=== PATIENT | male | born 1940 | race Caucasian/White ===

== ENCOUNTER 2024-06-24 14:50 | Inpatient (IN) | payer MEDICARE, SELFPAY ==
[2024-06-24 15:14] VITALS: BP 122/70; PULSE 63; RESP 16; TEMP 36.3; O2SAT 95; BMI 26.9
--- NOTE | 2024-06-24 16:49 | HP.PCM_ITS ---
HPI - General General Date of Admission: 06/24/24 Date of Service: 06/27/24 Chief Complaint: Here for rehabilitation, wound care. HPI Narrative IZABELA LONDON, is a 84 Male who presents with followin06/20/2024 Admit to [facility] with sore bottom. Sacra pressure ulcer 2/2 antibiotic induced diarrhea, weakness. Diarrhea from Doxycycline, Generalized weakness, unable to walk. Doxycycline was for bronchitis, unable to care for self at home. PT/OT for SNF. IV fluids, delirium precautions. 06/21/2024 Wound nurse recommended Hibiclens, Collagenase, waffle cushion, Reposition frequently for stage 3 bilateral sacral ulcers. 06/21/2024 Feels better after IVF hydration. 06/22/2024 PT/OT recommended SNF. 06/24/2024 Admit to TCU with debility, here for rehabilitation, strengthening, wound care, prior to discharge home with . [facility] Medical History (Updated 06/24/24 @ 17:[address] Keaton Rader MD) Coronary artery disease Hyperlipidemia, unspecified Essential (primary) hypertension Burkitt lymphoma Prostate cancer Dehydration Antibiotic-associated diarrhea Stage III pressure ulcer of sacral region Weakness Debility Home Medications ?Medication ?Instructions ?Recorded ?Last Taken ?Type albuterol sulfate 90 mcg/actuation 2 inh inhalation Q4H PRN Breathing 06/24/24 Unknown History aerosol inhaler ascorbic acid (vitamin C) 500 mg 500 mg PO DAILY Supplement 06/24/24 06/24/24 09:30 History capsule aspirin 81 mg capsule 81 mg PO DAILY Heart 06/24/24 06/23/24 22:15 History benzonatate 100 mg capsule 100 mg PO TID PRN PRN cough 06/24/24 Unknown History calcium carbonate 500 mg-vitamin 1 tab PO DAILY supplement 06/24/24 06/24/24 09:30 History D3 5 mcg (200 unit) tablet (Oyster Shell Calcium-Vitamin D3) carvedilol 3.125 mg tablet 3.125 mg PO BID BP 06/24/24 06/24/24 09:30 History cholecalciferol (vitamin D3) 125 125 mcg PO DAILY SUPPLEMENT 06/24/24 Unknown History mcg (5,000 unit) capsule collagenase clostridium histo. 250 1 applic topical DAILY wound 06/24/24 06/24/24 09:30 History unit/gram topical ointment enzalutamide 40 mg capsule (Xtandi) 160 mg PO QHS Cancer 06/24/24 06/23/24 22:15 History lisinopril 10 mg tablet 10 mg PO DAILY BP 06/24/24 06/24/24 09:30 History polyethylene glycol 3350 17 17 g PO DAILY PRN constipation 06/24/24 06/20/24 History gram/dose oral powder (Miralax) simvastatin 20 mg tablet 20 mg PO QPM Cholesterol 06/24/24 Unknown History tamsulosin 0.4 mg capsule 0.4 mg PO BID PRN BPH 06/24/24 06/24/24 09:30 History zinc sulfate 50 mg zinc (220 mg) 50 mg PO DAILY Supplement 06/24/24 06/24/24 09:35 History capsule (Orazinc) Allergy/AdvReac Type Severity Reaction Status Date / Time No Known Allergies Allergy Verified 06/24/24 16:10 Family History (Updated 06/24/24 @ 17:[address] Keaton Rader MD) Father , at 77. Colon cancer Surgical History (Updated 06/24/24 @ 17:[address] Keaton Rader MD) History of total left knee replacement History of tonsillectomy and adenoidectomy History of arteriovenous graft History of cataract surgery History of coronary artery stent placement History of colonoscopy History of bone graft History of back surgery Social History (Updated 06/24/24 @ 17:[address] Keaton Rader MD) household members: spouse Smoking Status: Former smoker alcohol intake: current details: Glass of wine per week. substance use type: does not use ROS Constitutional Constitutional: Reports weakness; Denies chills, fever(s) or weight gain ENT HEENT: Denies headache(s), nasal congestion or nasal discharge Cardiovascular Cardiovascular: Denies chest pain or palpitations Respiratory/Chest Respiratory/Chest: Denies cough, excessive phlegm production or shortness of breath with exertion Gastrointestinal Gastrointestinal: Denies abdominal pain, nausea or vomiting Genitourinary Genitourinary: Denies dysuria Musculoskeletal Musculoskeletal: Denies joint pain or joint swelling Integumentary Integumentary: Denies rash or wounds Neurologic Neurologic: Denies focal weakness, numbness or tingling Psychiatric Psychiatric: Denies anxiety, auditory hallucinations, depression, homicidal ideation or suicidal ideation Vital Signs Vital Signs Vital Signs: 06/24/24 15:14 06/24/24 15:14 Temperature 97.3 F L Temperature Source Temporal Pulse Rate 63 Pulse Rhythm Regular Pulse Strength Normal (2+) Respiratory Rate 16 Respiratory Effort Normal Non-Labored Respiratory Depth Normal Respiratory Pattern Normal Blood Pressure 122/70 H Blood Pressure Mean 87 Blood Pressure Source Monitor Blood Pressure Position Semi-Fowlers Blood Pressure Location Left Arm Pulse Ox 95 Oxygen Delivery Method Room Air Room Air Weight Weight: 87.77 kg Body Mass Index (BMI) 26.9 Physical Exam Const alert General Appearance: cooperative HEENT normocephalic Eyes PERRL and EOMs intact bilaterally Neck supple, no JVD and no carotid bruits Resp normal respiratory effort, normal air movement and clear to auscultation bilaterally Cardio regular rate and regular rhythm GI normal to inspection, nondistended, normoactive bowel sounds, non-tender and non-distended Extremity normal capillary refill General Extremity: Negative for edema Skin Skin Narrative: Sacral pressure ulcers per wound nurse. Psych affect normal Appearance: appropriate Results Lab / Micro Data 06/25/24 05:25 06/25/24 05:25 Assessment & Plan Assessment/Plan (1) Debility: (2) Weakness: (3) Stage III pressure ulcer of sacral region: (4) Antibiotic-associated diarrhea: (5) Dehydration: (6) Prostate cancer: (7) Burkitt lymphoma: (8) Essential (primary) hypertension: (9) Hyperlipidemia, unspecified: (10) Coronary artery disease: PLAN: Plan 84 year old male with below past medical history hospitalized for weakness 2/2 antibiotic related diarrhea, dehydration, stage 3 bilateral sacral ulcers, admitted to TCU with debility, here for rehabilitation, strengthening, wound care, prior to discharge home with . * Debility - PT/OT. * Pain - Tylenol 1000mg q6 prn pain (1-10). * Bowel - Miralax 17gm daily prn. * Adult immunization - Administer pneumonia vaccine, covid vaccine, flu vaccine as appropriate. * DVT prophylaxis - Lovenox 40mg sc daily. * Shortness of breath - Albuterol 2 puffs q4 prn. * Vitamin C deficiency - Vitamin C 500mg daily. * Coronary artery disease - Coreg 3.125mg bid, Lisinopril 10mg daily, Aspirin 81mg daily. * Hyperlipidemia - Atorvastatin 10mg qhs. * Cough - Tessalon Perles 100mg tid prn. * Calcium deficiency - Calcium D 1 tablet daily. * Vitamin D deficiency - D 125mcg daily. * Stage 3 sacral pressure ulcer - Collagenase topical daily, consult wound nurse. * Nutrition - Ensure Plus 120ml tidcm. * Prostate cancer - Xtandi 160mg qhs. * BPH - Tamsulosin 0.4mg bid prn. * Zinc deficiency - Zinc 50mg daily.
[2024-06-24] MEDS: Ensure Plus High Protein 120 ML LIQUID PO (17:24)
[2024-06-24 21:10] VITALS: BP 125/60; PULSE 65
[2024-06-24] MEDS: Atorvastatin Calcium 10 MG Tablet PO (21:12)
[2024-06-24] MEDS: ENZALUTAMIDE 40 MG CAPSULE 160 MG PO (21:12)
[2024-06-24] MEDS: Carvedilol 3.125 MG TABLET PO (21:13)
[2024-06-25] MEDS: Enoxaparin 40 MG/0.4 ML Syringe SC (05:32)
[2024-06-25 05:33] LABS: Absolute Neutrophil Count 4.3 X10^3/uL (2.0-7.7); Basophil# 0.05 X10^3/uL; Basophil% 0.6 % (0-1); Eosinophil# 0.27 X10^3/uL; Eosinophils% 3.5 % (0-5); Hematocrit 40.9 % (40-54); Hemoglobin 13.3 g/dL (13.0-16.5); Lymphocyte % 29.6 % (19-41); Mean Corp Hgb Conc 32.5 g/dL (32-36); Mean Corpuscular Hgb 31.5 pg (27.0-32.0); Mean Corpuscular Volume 96.9 fL (80-94); Mean Platelet Vol. 9.4 fl (6.2-12.0); Monocyte# 0.86 X10^3/uL; Monocyte% 11.1 % (0-10); NRBC Flagged by Analyzer 0 % (0-5); Neutrophil # 4.25 X10^3/uL (2.7-7.7); Neutrophil % 54.7 % (47-70); Platelet Count 239 K/mm3 (150-450); RBC Distribution Width CV 13.8 % (11.6-14.6); RBC Distribution Width SD 49.2 fl (35.1-43.9); Red Blood Count 4.22 M/mm3 (4.6-6.2); White Blood Count 7.8 K/mm3 (4.4-11.0)
[2024-06-25 05:57] LABS: Anion Gap 7 (5-15); BUN 17 mg/dL (7-18); BUN/Creat Ratio 33.5 RATIO (10-20); Calcium,Total 8.8 mg/dL (8.5-10.1); Chloride 103 mmol/L (98-107); Creatinine, Serum 0.51 mg/dL (0.70-1.30); EST Glomerular Filtration Rate 165 mL/min (>60); Est Glom Filt Rate - Afr Amer 200 mL/min (>60); Estimated Creatinine Clearance 73.21 ml/min; Glucose 113 mg/dL (74-106); Potassium 4.4 mmol/L (3.5-5.1); Sodium Level 139 mmol/L (136-145)
[2024-06-25] MEDS: Zinc Sulfate 50 mg zinc (220 mg) ORAL capsule PO (08:51)
[2024-06-25] MEDS: Lisinopril 10 MG Tablet PO (08:51)
[2024-06-25] MEDS: Aspirin 81 MG TAB.CHEW PO (08:52)
[2024-06-25] MEDS: Ascorbic Acid 500 MG Tablet PO (08:52)
[2024-06-25] MEDS: Carvedilol 3.125 MG TABLET PO ×2 (08:52→21:44)
[2024-06-25] MEDS: Calcium Carb/Vitamin D 1 TABLET Tablet PO (08:52)
[2024-06-25] MEDS: Cholecalciferol (Vit D3) 125 MCG CAPSULE (5,000 UNITS) PO (08:52)
[2024-06-25] MEDS: Ensure Plus High Protein 120 ML LIQUID PO ×3 (08:57→16:37)
[2024-06-25] MEDS: Collagenase 30gm Tube 1 APPLIC TOPICAL (10:11)
[2024-06-25] MEDS: Tuberculin,Purif.prot.deriv. 50 TU/ML Vial 0.1 ML ID (10:13)
[2024-06-25 12:29] VITALS: BP 114/64; PULSE 65; RESP 14; TEMP 36; O2SAT 94
--- NOTE | 2024-06-25 21:14 | NURSING ---
Spoke w/ DR. Rader via phone to report resident is requesting to have Flomax changed to 0.4 mg po BID scheduled. New order received and read back for Flomax 0.4 mg po BID scheduled.
[2024-06-25 21:41] VITALS: BP 124/70; PULSE 63
[2024-06-25] MEDS: Atorvastatin Calcium 10 MG Tablet PO (21:44)
[2024-06-25] MEDS: ENZALUTAMIDE 40 MG CAPSULE 160 MG PO (21:44)
[2024-06-25] MEDS: Tamsulosin HCl 0.4 MG Capsule PO (21:44)
[2024-06-26] MEDS: Enoxaparin 40 MG/0.4 ML Syringe SC (05:22)
[2024-06-26] MEDS: Cholecalciferol (Vit D3) 125 MCG CAPSULE (5,000 UNITS) PO (08:49)
[2024-06-26] MEDS: Tamsulosin HCl 0.4 MG Capsule PO ×2 (08:49→21:53)
[2024-06-26] MEDS: Ascorbic Acid 500 MG Tablet PO (08:49)
[2024-06-26] MEDS: Carvedilol 3.125 MG TABLET PO ×2 (08:49→21:53)
[2024-06-26] MEDS: Calcium Carb/Vitamin D 1 TABLET Tablet PO (08:49)
[2024-06-26] MEDS: Ensure Plus High Protein 120 ML LIQUID PO ×3 (08:49→18:10)
[2024-06-26] MEDS: Aspirin 81 MG TAB.CHEW PO (08:49)
[2024-06-26] MEDS: Lisinopril 10 MG Tablet PO (08:49)
[2024-06-26] MEDS: Zinc Sulfate 50 mg zinc (220 mg) ORAL capsule PO (08:49)
[2024-06-26 08:52] VITALS: BP 114/65; PULSE 68
[2024-06-26 08:58] VITALS: BP 114/65; PULSE 68
[2024-06-26] MEDS: Polyethylene Glycol 3350 17 GM PACKET PO (10:22)
[2024-06-26] MEDS: Collagenase 30gm Tube 1 APPLIC TOPICAL (10:28)
[2024-06-26 15:11] VITALS: BP 102/56; PULSE 69; RESP 16; TEMP 36.3; O2SAT 94
[2024-06-26 21:50] VITALS: BP 100/54
[2024-06-26] MEDS: Atorvastatin Calcium 10 MG Tablet PO (21:53)
[2024-06-26] MEDS: ENZALUTAMIDE 40 MG CAPSULE 160 MG PO (21:54)
[2024-06-26 22:15] VITALS: PULSE 70; RESP 14; O2SAT 93
--- NOTE | 2024-06-27 04:39 | NURSING ---
Pt had large bm and soiled dressing on buttocks. Old dressing removed. Washed area with ns. Applied santyl,mepilex. Pt tolerated well.
[2024-06-27] MEDS: Enoxaparin 40 MG/0.4 ML Syringe SC (06:24)
[2024-06-27] MEDS: Ascorbic Acid 500 MG Tablet PO (07:39)
[2024-06-27] MEDS: Cholecalciferol (Vit D3) 125 MCG CAPSULE (5,000 UNITS) PO (07:39)
[2024-06-27] MEDS: Aspirin 81 MG TAB.CHEW PO (07:39)
[2024-06-27] MEDS: Lisinopril 10 MG Tablet PO (07:39)
[2024-06-27] MEDS: Tamsulosin HCl 0.4 MG Capsule PO (07:39)
[2024-06-27] MEDS: Carvedilol 3.125 MG TABLET PO ×2 (07:39→22:09)
[2024-06-27] MEDS: Ensure Plus High Protein 120 ML LIQUID PO ×3 (07:39→17:09)
[2024-06-27] MEDS: Collagenase 30gm Tube 1 APPLIC TOPICAL (07:39)
[2024-06-27] MEDS: Zinc Sulfate 50 mg zinc (220 mg) ORAL capsule PO (07:39)
[2024-06-27] MEDS: Calcium Carb/Vitamin D 1 TABLET Tablet PO (07:39)
[2024-06-27 09:19] VITALS: BP 119/64; PULSE 67; RESP 16; TEMP 36.3; O2SAT 96
[2024-06-27 10:11] VITALS: BMI 27.0
--- NOTE | 2024-06-27 13:32 | PHA.CONS_ITS ---
Documented by User: Haider Garvey 06/27/24 13:52 TCU RX Drug Regimen Review Subjective/Objective Subjective/Objective: Subjective: TCU admission note. 84 year old male hospitalized for weakness 2/2 antibiotic related diarrhea, dehydration, stage 3 bilateral sacral ulcers, admitted to TCU with debility, here for rehabilitation, strengthening, wound care, prior to discharge home with . Objective: Allergies No Known Allergies Allergy (Verified 06/24/24 16:10) Current Medications Generic Name Dose Route Start Last Admin Trade Name Freq PRN Reason Stop Dose Admin Acetaminophen 1,000 mg 06/24/24 17:46 Acetaminophen 500 Mg Tablet PO Q6H PRN PRN Pain Score 1-10 Albuterol Sulfate 2 puff 06/24/24 15:33 Albuterol Ih (6.7 Gm) 1 Puff Inhaler INHALATION Q4H PRN Wheezing or SOB Ascorbic Acid 500 mg 06/25/24 10:00 06/27/24 07:39 Ascorbic Acid 500 Mg Tablet PO 500 mg DAILY MARCIAL Administration Aspirin 81 mg 06/25/24 08:00 06/27/24 07:39 Aspirin 81 Mg Tab.Chew PO 81 mg DAILYCM MARCIAL Administration Atorvastatin Calcium 10 mg 06/24/24 22:00 06/26/24 21:53 Atorvastatin Calcium 10 Mg Tablet PO 10 mg QHS MARCIAL Administration Benzonatate 100 mg 06/24/24 15:33 Benzonatate 100 Mg Capsule PO TID PRN PRN cough Calcium/Vitamin D 1 tablet 06/25/24 08:00 06/27/24 07:39 Calcium Carb/Vitamin D 1 Tablet Tablet PO 1 tablet DAILYCM MARCIAL Administration Carvedilol 3.125 mg 06/24/24 22:00 06/27/24 07:39 Carvedilol 3.125 Mg Tablet PO 3.125 mg BID MARCIAL Administration Protocol Cholecalciferol 125 mcg 06/25/24 10:00 06/27/24 07:39 Cholecalciferol (Vit D3) 125 Mcg Capsule (5,000 Units) PO 125 mcg DAILY MARCIAL Administration Collagenase 1 applic 06/25/24 10:00 06/27/24 07:39 Collagenase 30gm Tube TOPICAL 1 applic DAILY MARCIAL Administration Protocol Enoxaparin Sodium 40 mg 06/25/24 06:00 06/27/24 06:24 Enoxaparin 40 Mg/0.4 Ml Syringe SC 40 mg DAILY@0600 MARCIAL Administration Lisinopril 10 mg 06/25/24 10:00 06/27/24 07:39 Lisinopril 10 Mg Tablet PO 10 mg DAILY MARCIAL Administration Protocol Nutritional Formula (Lactose Free) 120 ml 06/24/24 17:45 06/27/24 11:50 Ensure Plus High Protein 120 Ml Liquid PO 120 ml TIDCM MARCIAL Administration Polyethylene Glycol 17 gm 06/24/24 16:13 06/26/24 10:22 Polyethylene Glycol 3350 17 Gm Packet PO 17 gm DAILY PRN Administration constipation Sodium Chloride 10 - 40 ml 06/24/24 15:18 0.9% Saline Lock 10 Ml Syringe IV UD PRN SALINE FLUSH Tamsulosin HCl 0.4 mg 06/25/24 22:00 06/27/24 07:39 Tamsulosin Hcl 0.4 Mg Capsule PO 0.4 mg BID MARCIAL Administration Tuberculin PPD 0.1 ml 07/02/24 10:00 Tuberculin,Purif.Prot.Deriv. 50 Tu/Ml Vial ID 07/02/24 10:01 X1 ONE Zinc Sulfate 50 mg 06/25/24 10:00 06/27/24 07:39 Zinc Sulfate 50 Mg Zinc (220 Mg) Oral Capsule PO 50 mg DAILY MARCIAL Administration Problem List Coronary artery disease (Acute) Hyperlipidemia, unspecified (Acute) Essential (primary) hypertension (Acute) Burkitt lymphoma (Acute) Prostate cancer (Acute) Dehydration (Acute) Antibiotic-associated diarrhea (Acute) Stage III pressure ulcer of sacral region (Acute) Weakness (Acute) Debility (Acute) Vital Signs Temp Pulse Resp BP Pulse Ox O2 Del Method 97.3 F L 67 16 119/64 96 Room Air 06/27/24 09:19 06/27/24 09:19 06/27/24 09:19 06/27/24 09:19 06/27/24 09:19 06/27/24 10:00 Oxygen Delivery Method Room Air Weight: 87.861 kg Body Mass Index (BMI) 27.0 Sodium 139 mmol/L (136-145) 06/25/24 05:25 Potassium 4.4 mmol/L (3.5-5.1) 06/25/24 05:25 Chloride 103 mmol/L (98-107) 06/25/24 05:25 Carbon Dioxide 29.0 mmol/L (21.0-32.0) 06/25/24 05:25 Anion Gap 7 (5-15) 06/25/24 05:25 BUN 17 mg/dL (7-18) 06/25/24 05:25 Creatinine 0.51 mg/dL (0.70-1.30) L 06/25/24 05:25 Est GFR (MDRD) Af Amer 200 mL/min (>60) 06/25/24 05:25 Est GFR (MDRD) Non-Af 165 mL/min (>60) 06/25/24 05:25 BUN/Creatinine Ratio 33.5 RATIO (10-20) H 06/25/24 05:25 Glucose 113 mg/dL (74-106) H 06/25/24 05:25 Assessment/Plan: 1. Pain: acetaminophen 1000 mg PO Q6H PRN pain. The patient has not required any PRN doses of acetaminophen so far this admission. Please continue to monitor for pain, PRN medication administration, and LFTs (no recent LFTs documented). 2. Bowel: polyethylene glycol 17 grams PO daily PRN constipation. The patient has received 1 dose of PRN polyethylene glycol so far this admission and the patient's last bowel movement was 06/27/24. Please continue to monitor for bowel movements, PRN medication administration, constipation and diarrhea. 3. DVT prophylaxis: enoxaparin 40 mg SC daily. Please continue to monitor for s/s of a DVT such as pain/erythema/edema in an extremity, for bleeding/excessive bruising, renal function (serum creatinine = 0.51 mg/dL with creatinine clearance ~ 73 mL/min on 06/25/24), hemoglobin levels (Hgb = 13.3 g/dL on 06/25/24), and platelet count (Plt = 239 K/mm3 on 06/25/24). 4. Coronary artery disease/hyperlipidemia: carvedilol 3.125 mg PO BID, lisinopril 10 mg PO daily, aspirin 81 mg PO daily, atorvastatin 10 mg PO QHS. Please continue to monitor for chest/arm/jaw pain, blood pressures (recent range = 100-125/54-70 mmHg), heart rates (recent range = 63-70 beats/min), for fatigue, renal function (serum creatinine = 0.51 mg/dL with creatinine clearance ~ 73 mL/min on 06/25/24), potassium levels (K = 4.4 mmol/L on 06/25/24), sodium levels (Na = 139 mmol/L on 06/25/24), for angioedema and dry cough, for bleeding/excessive bruising, for GI distress with aspirin administration, LFTs (no recent LFTs documented), myalgias, and lipid levels (no recent lipid levels documented). The patient has a history of CAD and therefore should be on a high intensity statin. Please consider ordering lipid levels to assess whether the patient can tolerate an increase in their statin dose. 5. Prostate cancer: enzalutamide 160 mg PO QHS. Please continue to monitor for hypotension, edema, hyperglycemia (recent BG = 113 mg/dL on 06/25/24), hemoglobin levels (Hgb = 13.3 g/dL on 06/25/24), WBC count (WBC = 7.8 K/mm3 on 06/25/24), arthralgia, bone fractures and dyspnea. 6. BPH: tamsulosin 0.4 mg PO BID. Please continue to monitor for urinary re tention and urine stream as well as for s/s of orthostasis. If the patient exhibits s/s of orthostasis throughout the day with good urine flow, consider changing to tamsulosin 0.8 mg QHS instead of 0.4 mg PO BID. 7. Shortness of breath: albuterol 2 puffs Q4H PRN shortness of breath. The patient has not required any PRN doses of albuterol so far this admission. Please continue to monitor for shortness of breath and for PRN medication administrations. 8. Cough: benzonatate 100 mg PO TID PRN cough. The patient has not required any PRN doses of benzonatate so far this admission. Please continue to monitor for cough, for PRN medication administration, chest numbness and constipation. 9. Stage 3 sacral pressure ulcer: collagenase 1 application topically daily. Please continue to monitor for resolution of pressure ulcer. 10. Calcium deficiency: calcium/vitamin D 1 tablet PO daily. Please continue to monitor for s/s of calcium deficiency as well as calcium levels (Ca = 8.8 mg/dL on 06/25/24). 11. Vitamin C deficiency: ascorbic acid 500 mg PO daily. Please continue to monitor for s/s of vitamin C deficiency. 12. Vitamin D deficiency: cholecalciferol 125 mcg PO daily. Please continue to monitor for s/s of vitamin D deficiency as well as vitamin D levels (no recent vitamin D levels). Please consider ordering a vitamin D level to assess repletion status if clinically indicated. 13. Zinc deficiency: zinc sulfate 50 mg PO daily. Please continue to monitor for s/s of zinc deficiency. 14. Nutrition: ensure plus 120 mL PO TID with meals. Please continue to monitor overall nutritional status. Assessment/Plan for indications treated with psychotropic medications: NA Medical chart and medication regimen reviewed. The following medication irreg ularities or issues were identified: 1. Coronary artery disease/hyperlipidemia: carvedilol 3.125 mg PO BID, lisinopril 10 mg PO daily, aspirin 81 mg PO daily, atorvastatin 10 mg PO QHS. T he patient has a history of CAD and therefore should be on a high intensity statin. Please consider ordering lipid levels to assess whether the patient can tolerate an increase in their statin dose. 2. BPH: tamsulosin 0.4 mg PO BID. If the patient exhibits s/s of orthostasis throughout the day with good urine flow, consider changing to tamsulosin 0.8 mg QHS instead of 0.4 mg PO BID. 3. Vitamin D deficiency: cholecalciferol 125 mcg PO daily. Please consider ordering a vitamin D level to assess repletion status if clinically indicated. Date Date of Note:: 06/27/24 Documented by User: Dr. Keaton Rader MD 06/27/24 14:35 TCU RX Drug Regimen Review Provider Comments Provider responsibility Provider Comments to Recommendations by Pharmacy: Agree
--- NOTE | 2024-06-27 15:39 | WOUNDNOTE ---
wound photo: bilateral buttocks
[2024-06-27 22:05] VITALS: BP 123/59; PULSE 63
[2024-06-27] MEDS: ENZALUTAMIDE 40 MG CAPSULE 160 MG PO (22:08)
[2024-06-27] MEDS: Atorvastatin Calcium 10 MG Tablet PO (22:09)
[2024-06-27] MEDS: Tamsulosin HCl 0.4 MG Capsule 0.8 MG PO (22:09)
[2024-06-28] MEDS: Enoxaparin 40 MG/0.4 ML Syringe SC (05:49)
[2024-06-28 07:02] LABS: Cholesterol 125 mg/dL (200); High Density Lipoprotein 45 mg/dL; Triglycerides 94 mg/dL; Very Low Density Lipoprotein 19 mg/dL (5-40)
[2024-06-28 07:47] LABS: Vitamin D,25 Hydroxy 38.4 ng/mL
[2024-06-28] MEDS: Carvedilol 3.125 MG TABLET PO ×2 (08:27→20:28)
[2024-06-28] MEDS: Aspirin 81 MG TAB.CHEW PO (08:27)
[2024-06-28] MEDS: Calcium Carb/Vitamin D 1 TABLET Tablet PO (08:27)
[2024-06-28] MEDS: Cholecalciferol (Vit D3) 125 MCG CAPSULE (5,000 UNITS) PO (08:28)
[2024-06-28] MEDS: Lisinopril 10 MG Tablet PO (08:28)
[2024-06-28] MEDS: Ascorbic Acid 500 MG Tablet PO (08:28)
[2024-06-28] MEDS: Zinc Sulfate 50 mg zinc (220 mg) ORAL capsule PO (08:28)
[2024-06-28] MEDS: Ensure Plus High Protein 120 ML LIQUID PO ×3 (08:31→17:32)
--- NOTE | 2024-06-28 13:59 | CASEMGMT ---
Social Work IDT met with patient, and dtr for care plan meeting. Discussed patient's progress in PT/OT/SN. Educated to [facility] insurance with NRD 07/03 and continued stay is not guaranteed with each review. Pt's goal is to return home with , but cannot assist. Pt did just order a hospital bed for home. SW inquired about other services needed at DC. Pt denied. After POC meeting, SW completed initial assessment. Verified/updated contacts. Confirmed code status as full code. SW will continue to follow for DC planning. Halle Nazario, HYDROPONICS WORKER INTEGRATION AIDE
[2024-06-28 16:00] VITALS: BP 134/68; PULSE 78; RESP 14; TEMP 36.4; O2SAT 95
--- NOTE | 2024-06-28 16:02 | CASEMGMT ---
Social Work SW requested provide copies of advanced directives. SW also provide resources for medical alert information. Halle Nazario, DAIRY MANAGEMENT SPECIALIST REGIONAL SALES MANAGER
[2024-06-28 20:27] VITALS: BP 114/53; PULSE 67
[2024-06-28] MEDS: Atorvastatin Calcium 10 MG Tablet PO (20:29)
[2024-06-28] MEDS: Tamsulosin HCl 0.4 MG Capsule 0.8 MG PO (20:29)
[2024-06-28] MEDS: ENZALUTAMIDE 40 MG CAPSULE 160 MG PO (20:30)
[2024-06-29] MEDS: Enoxaparin 40 MG/0.4 ML Syringe SC (06:10)
[2024-06-29 06:47] VITALS: PULSE 76; RESP 16; O2SAT 93
[2024-06-29] MEDS: Aspirin 81 MG TAB.CHEW PO (07:43)
[2024-06-29] MEDS: Ensure Plus High Protein 120 ML LIQUID PO ×3 (07:43→17:38)
[2024-06-29] MEDS: Carvedilol 3.125 MG TABLET PO ×2 (07:44→20:52)
[2024-06-29] MEDS: Lisinopril 10 MG Tablet PO (07:44)
[2024-06-29] MEDS: Calcium Carb/Vitamin D 1 TABLET Tablet PO (07:44)
[2024-06-29] MEDS: Ascorbic Acid 500 MG Tablet PO (07:45)
[2024-06-29] MEDS: Cholecalciferol (Vit D3) 125 MCG CAPSULE (5,000 UNITS) PO (07:45)
[2024-06-29] MEDS: Zinc Sulfate 50 mg zinc (220 mg) ORAL capsule PO (07:45)
[2024-06-29 07:50] VITALS: BP 102/55; PULSE 66; RESP 16; TEMP 36.8; O2SAT 93
--- NOTE | 2024-06-29 09:57 | NURSING ---
Regulatory Compliance Manager Note; Activity Asset: Lisa Ward is independent in his choice of daily activities. He prefers in room activities and visits w/family and friends over group. He has a smartphone and tablet her will use for talking, reading watching movies or playing games on. Staff will remind him of weekly activities and respect his right to say no.
[2024-06-29 20:50] VITALS: BP 113/58; PULSE 72
[2024-06-29] MEDS: ENZALUTAMIDE 40 MG CAPSULE 160 MG PO (20:51)
[2024-06-29] MEDS: Atorvastatin Calcium 10 MG Tablet PO (20:52)
[2024-06-29] MEDS: Tamsulosin HCl 0.4 MG Capsule 0.8 MG PO (20:52)
[2024-06-30] MEDS: Enoxaparin 40 MG/0.4 ML Syringe SC (05:26)
[2024-06-30 07:05] VITALS: PULSE 64; RESP 16; O2SAT 94
[2024-06-30] MEDS: Lisinopril 10 MG Tablet PO (10:00)
[2024-06-30] MEDS: Aspirin 81 MG TAB.CHEW PO (10:00)
[2024-06-30] MEDS: Zinc Sulfate 50 mg zinc (220 mg) ORAL capsule PO (10:00)
[2024-06-30] MEDS: Carvedilol 3.125 MG TABLET PO ×2 (10:00→20:51)
[2024-06-30] MEDS: Ascorbic Acid 500 MG Tablet PO (10:00)
[2024-06-30] MEDS: Cholecalciferol (Vit D3) 125 MCG CAPSULE (5,000 UNITS) PO (10:00)
[2024-06-30] MEDS: Calcium Carb/Vitamin D 1 TABLET Tablet PO (10:00)
[2024-06-30] MEDS: Ensure Plus High Protein 120 ML LIQUID PO ×3 (10:04→16:42)
--- NOTE | 2024-06-30 11:15 | MDS.RN ---
Pain interview for mds completed.
--- NOTE | 2024-06-30 13:43 | WOUNDNOTE ---
wound photo: bilateral buttocks
--- NOTE | 2024-06-30 15:25 | CHAPLAIN ---
Type of Pastoral Visit _x__ Initial Visit ___ Follow-up Visit ___ On-call Visit ___ General Patient Visit ___ Spiritual Assessment ___ Family Conference ___ Bereavement ___ Rapid Response ___ Code Blue ___ Other (describe below) Pastoral Care Referral From _x__ Patient ___ Family ___ Nurse ___ Physician ___ Manager Of Business ___ Greeting Card Editor ___ Other (describe below) Sacrament/Intervention _x__ Active listening ___ Anointing ___ Jain ___ Bereavement ___ Communion _x__ Mariana exploration ___ _x__ Life review _x__ Prayer ___ Reconciliation ___ Sacrament of Sick ___ Supportive presence ___ Wedding ___ Other (describe below) Pastoral Comments patient is welcoming and describes his situation and then talks about his cheondoism experience and concerns for that; pt engages well in casual conversation, accepts presence and prayer, and welcomes future visits as possible
[2024-06-30 15:27] VITALS: BP 116/58; PULSE 68; RESP 18; TEMP 36.5; O2SAT 95
--- NOTE | 2024-06-30 15:34 | CASEMGMT ---
Social Work SW conducted BIMS () and PHQ-2 () completed for MDS assessment. Halle Nazario MSW BRASS WIND INSTRUMENT MAKER
[2024-06-30 20:49] VITALS: BP 118/60; PULSE 76
[2024-06-30] MEDS: Tamsulosin HCl 0.4 MG Capsule 0.8 MG PO (20:50)
[2024-06-30] MEDS: ENZALUTAMIDE 40 MG CAPSULE 160 MG PO (20:50)
[2024-06-30] MEDS: Atorvastatin Calcium 10 MG Tablet PO (20:51)
[2024-07-01] MEDS: Enoxaparin 40 MG/0.4 ML Syringe SC (05:44)
[2024-07-01 09:45] VITALS: BP 125/63; PULSE 64; RESP 16; TEMP 36.3; O2SAT 95
[2024-07-01] MEDS: Cholecalciferol (Vit D3) 125 MCG CAPSULE (5,000 UNITS) PO (09:47)
[2024-07-01] MEDS: Ensure Plus High Protein 120 ML LIQUID PO ×3 (09:47→17:26)
[2024-07-01] MEDS: Carvedilol 3.125 MG TABLET PO ×2 (09:47→21:25)
[2024-07-01] MEDS: Ascorbic Acid 500 MG Tablet PO (09:47)
[2024-07-01] MEDS: Aspirin 81 MG TAB.CHEW PO (09:47)
[2024-07-01] MEDS: Calcium Carb/Vitamin D 1 TABLET Tablet PO (09:47)
[2024-07-01] MEDS: Zinc Sulfate 50 mg zinc (220 mg) ORAL capsule PO (09:47)
[2024-07-01] MEDS: Lisinopril 10 MG Tablet PO (09:47)
[2024-07-01 18:05] VITALS: RESP 16
[2024-07-01 21:23] VITALS: BP 113/55; PULSE 66
[2024-07-01] MEDS: Tamsulosin HCl 0.4 MG Capsule 0.8 MG PO (21:24)
[2024-07-01] MEDS: ENZALUTAMIDE 40 MG CAPSULE 160 MG PO (21:24)
[2024-07-01] MEDS: Atorvastatin Calcium 10 MG Tablet PO (21:25)
[2024-07-02] MEDS: Enoxaparin 40 MG/0.4 ML Syringe SC (06:29)
[2024-07-02 07:03] VITALS: PULSE 62; RESP 16; O2SAT 93
[2024-07-02 07:53] VITALS: BP 102/59; PULSE 62; RESP 16; TEMP 36.3; O2SAT 93
[2024-07-02] MEDS: Ensure Plus High Protein 120 ML LIQUID PO ×3 (07:55→16:48)
[2024-07-02] MEDS: Calcium Carb/Vitamin D 1 TABLET Tablet PO (07:56)
[2024-07-02] MEDS: Ascorbic Acid 500 MG Tablet PO (07:56)
[2024-07-02] MEDS: Lisinopril 10 MG Tablet PO (07:56)
[2024-07-02] MEDS: Zinc Sulfate 50 mg zinc (220 mg) ORAL capsule PO (07:56)
[2024-07-02] MEDS: Aspirin 81 MG TAB.CHEW PO (07:56)
[2024-07-02] MEDS: Carvedilol 3.125 MG TABLET PO ×2 (07:56→21:55)
[2024-07-02] MEDS: Cholecalciferol (Vit D3) 125 MCG CAPSULE (5,000 UNITS) PO (07:56)
[2024-07-02] MEDS: Tuberculin,Purif.prot.deriv. 50 TU/ML Vial 0.1 ML ID (10:49)
[2024-07-02] MEDS: ENZALUTAMIDE 40 MG CAPSULE 160 MG PO (21:54)
[2024-07-02] MEDS: Tamsulosin HCl 0.4 MG Capsule 0.8 MG PO (21:55)
[2024-07-02] MEDS: Atorvastatin Calcium 10 MG Tablet PO (21:55)
[2024-07-03 05:57] LABS: Absolute Lymphocyte Count 2.25 X10^3/uL (0.83-4.51); Absolute Neutrophil Count 5.1 X10^3/uL (2.0-7.7); Basophil# 0.06 X10^3/uL; Basophil% 0.7 % (0-1); Eosinophil# 0.15 X10^3/uL; Eosinophils% 1.8 % (0-5); Hematocrit 41.3 % (40-54); Hemoglobin 13.5 g/dL (13.0-16.5); Lymphocyte # 2.25 X10^3/ul (0.83-4.51); Lymphocyte % 26.6 % (19-41); Mean Corp Hgb Conc 32.7 g/dL (32-36); Mean Corpuscular Hgb 31.8 pg (27.0-32.0); Mean Corpuscular Volume 97.2 fL (80-94); Mean Platelet Vol. 9.5 fl (6.2-12.0); Monocyte# 0.81 X10^3/uL; Monocyte% 9.6 % (0-10); NRBC Flagged by Analyzer 0 % (0-5); Neutrophil # 5.14 X10^3/uL (2.7-7.7); Neutrophil % 60.8 % (47-70); Platelet Count 269 K/mm3 (150-450); RBC Distribution Width CV 13.6 % (11.6-14.6); RBC Distribution Width SD 48.8 fl (35.1-43.9); Red Blood Count 4.25 M/mm3 (4.6-6.2); White Blood Count 8.5 K/mm3 (4.4-11.0)
[2024-07-03] MEDS: Enoxaparin 40 MG/0.4 ML Syringe SC (06:15)
[2024-07-03 07:00] LABS: Anion Gap 5 (5-15); BUN 29 mg/dL (7-18); BUN/Creat Ratio 52.1 RATIO (10-20); Calcium,Total 9.1 mg/dL (8.5-10.1); Chloride 101 mmol/L (98-107); Creatinine, Serum 0.56 mg/dL (0.70-1.30); EST Glomerular Filtration Rate 149 mL/min (>60); Est Glom Filt Rate - Afr Amer 180 mL/min (>60); Estimated Creatinine Clearance 73.21 ml/min; Glucose 119 mg/dL (74-106); Potassium 4.6 mmol/L (3.5-5.1); Sodium Level 134 mmol/L (136-145)
[2024-07-03] MEDS: Zinc Sulfate 50 mg zinc (220 mg) ORAL capsule PO (07:53)
[2024-07-03] MEDS: Aspirin 81 MG TAB.CHEW PO (07:53)
[2024-07-03] MEDS: Lisinopril 10 MG Tablet PO (07:53)
[2024-07-03] MEDS: Cholecalciferol (Vit D3) 125 MCG CAPSULE (5,000 UNITS) PO (07:53)
[2024-07-03] MEDS: Ascorbic Acid 500 MG Tablet PO (07:53)
[2024-07-03] MEDS: Carvedilol 3.125 MG TABLET PO ×2 (07:53→22:35)
[2024-07-03] MEDS: Calcium Carb/Vitamin D 1 TABLET Tablet PO (07:53)
[2024-07-03 07:55] VITALS: BP 119/61; PULSE 63; RESP 16; TEMP 36.1; O2SAT 95
[2024-07-03] MEDS: Ensure Plus High Protein 120 ML LIQUID PO ×3 (07:56→17:48)
--- NOTE | 2024-07-03 09:28 | NURSING ---
Rail Gang Supervisor Note; MDS for 07/01/2024 Complete
--- NOTE | 2024-07-03 16:32 | CASEMGMT ---
Addendum entered by Halle Nazario 07/06/24 12:01: SW updated [facility] of procedure and plan today. SW to notify HHC tomorrow if pt did DC home or was admitted. Addendum entered by Halle Nazario 07/04/24 10:12: [facility] can accept with SOC 07/07 Addendum entered by Halle Nazario 07/04/24 09:33: Pt selected [facility]. SW placed referral via [facility]. Original Note: Social Work Insurance issued LCD 07/05, DC 07/06. EARL spoke with pt and at bedside, notified of DC, explained appeal rights and discussed DC plans. Both agreeable to DC. Inquired about HHC vs OP. Pt requesting HHC first. EARL provided printed list of skilled HHC providers with quality and resource data via [employer]. Pt has no DME needs. to transport and scheduled car tx with therapy. Plan: DC home with 07/06, HHC PT/OT/SN [facility]
[2024-07-03 18:55] LABS: Bacteria 0 SEEN /hpf (None Seen); Mucous, Urine 0 SEEN /hpf (<or=2+)
[2024-07-03 19:05] LABS: Color, Urine Yellow (Yellow); Glucose, Dipstick Normal (Normal); Ketone-Dipstick Negative (Negative); Leukocyte Esterase-Dipstick 25 /ul (Negative); Nitrite-Dipstick Positive (Negative); Occult Blood-Urine 250 /ul (Negative); Protein-Dipstick 100 mg/dl (Negative); Urine Bilirubin Dipstick Negative (Negative); Urine Clarity Sl. Cloudy (Clear); Urine Urobilinogen Normal (Normal)
[2024-07-03 19:22] LABS: Amorphous Sediment 1+ URATE; Red Blood Cells-Urine 50-100 SEEN /hpf (0-5); Squamous Epithelial Cells - UA 0-5 SEEN /hpf (0-5); White Blood Cells 0-5 SEEN /hpf (0-5)
--- NOTE | 2024-07-03 20:36 | DS.PCM_ITS ---
Providers Date of Admission: 06/24/24 Primary Care Physician: Dr. Jeramie Cervantes MD Consultations 06/24/24 15:29 Consult: Onc/Wound/pig handler Routine Comment: Reason for Consult:: Stage 3 wounds to bottom. Reason For Visit: FAILURE TO THRIVE, WOUNDS TO BUTTOCKS Diagnosis Discharge Diagnosis (1) Debility: Status: Acute Code(s): R53.81 - Other malaise (2) Weakness: Status: Acute Code(s): R53.1 - Weakness (3) Stage III pressure ulcer of sacral region: Status: Acute Code(s): L89.153 - Pressure ulcer of sacral region, stage 3 (4) Antibiotic-associated diarrhea: Status: Acute Code(s): K52.1 - Toxic gastroenteritis and colitis; T36.95XA - Adverse effect of unspecified systemic antibiotic, initial encounter (5) Dehydration: Status: Acute Code(s): E86.0 - Dehydration (6) Prostate cancer: Status: Acute Code(s): C61 - Malignant neoplasm of prostate (7) Burkitt lymphoma: Status: Acute Code(s): C83.70 - Burkitt lymphoma, unspecified site (8) Essential (primary) hypertension: Status: Acute Code(s): I10 - Essential (primary) hypertension (9) Hyperlipidemia, unspecified: Status: Acute Code(s): E78.5 - Hyperlipidemia, unspecified (10) Coronary artery disease: Status: Acute Code(s): I25.10 - Atherosclerotic heart disease of [place] coronary artery without angina pectoris Plan 84 year old male with below past medical history hospitalized for weakness 2/2 antibiotic related diarrhea, dehydration, stage 3 bilateral sacral ulcers, admitted to TCU with debility, here for rehabilitation, strengthening, wound care, prior to discharge home with . * Debility - PT/OT. * Pain - Tylenol 1000mg q6 prn pain (1-10). * Bowel - Miralax 17gm daily prn. * Adult immunization - Administer pneumonia vaccine, covid vaccine, flu vaccine as appropriate. * DVT prophylaxis - Lovenox 40mg sc daily. * Shortness of breath - Albuterol 2 puffs q4 prn. * Vitamin C deficiency - Vitamin C 500mg daily. * Coronary artery disease - Coreg 3.125mg bid, Lisinopril 10mg daily, Aspirin 81mg daily. * Hyperlipidemia - Atorvastatin 10mg qhs. * Cough - Tessalon Perles 100mg tid prn. * Calcium deficiency - Calcium D 1 tablet daily. * Vitamin D deficiency - D 125mcg daily. * Stage 3 sacral pressure ulcer - Collagenase topical daily, consult wound nurse. * Nutrition - Ensure Plus 120ml tidcm. * Prostate cancer - Xtandi 160mg qhs. * BPH - Tamsulosin 0.4mg bid prn. * Zinc deficiency - Zinc 50mg daily. Medications at Discharge Home Medications ascorbic acid (vitamin C) 500 mg capsule 500 mg PO DAILY Supplement 06/24/24 aspirin 81 mg capsule 81 mg PO DAILY Heart 06/24/24 benzonatate 100 mg capsule 100 mg PO TID PRN PRN cough 06/24/24 calcium carbonate 500 mg-vitamin D3 5 mcg (200 unit) tablet (Oyster Shell Calcium-Vitamin D3) 1 tab PO DAILY supplement 06/24/24 carvedilol 3.125 mg tablet 3.125 mg PO BID BP 06/24/24 cholecalciferol (vitamin D3) 125 mcg (5,000 unit) capsule 125 mcg PO DAILY SUPPLEMENT 06/24/24 enzalutamide 40 mg capsule (Xtandi) 160 mg PO QHS Cancer 06/24/24 lisinopril 10 mg tablet 10 mg PO DAILY BP 06/24/24 simvastatin 20 mg tablet 20 mg PO QPM Cholesterol 06/24/24 zinc sulfate 50 mg zinc (220 mg) capsule (Orazinc) 50 mg PO DAILY Supplement 06/24/24 ciprofloxacin HCl 250 mg tablet 250 mg PO BID 4 days #8 tabs 07/03/24 tamsulosin 0.4 mg capsule 0.8 mg (2 x 0.4 mg) PO QHS #0 caps 07/03/24 Hospital Course Operations None Procedures None Summary of Care Provided Minutes Spent on Discharge: 35 Hospital Course: 84 year old male with below past medical history hospitalized for weakness 2/2 antibiotic related diarrhea, dehydration, stage 3 bilateral sacral ulcers, admitted to TCU with debility, here for rehabilitation, strengthening, wound care, prior to discharge home with . 07/03/2024 Resident had hematuria, UA c/w UTI, urine culture pending, treated with Cipro 250mg po bid x 7 days, he also had right flank pain, CT A/P, stone protocol pending. Discharge home with 07/06/2024, [facility] PT/OT/SN. Physical Exam Const alert General Appearance: cooperative HEENT normocephalic Eyes PERRL and EOMs intact bilaterally Neck supple, no JVD and no carotid bruits Resp normal respiratory effort, normal air movement and clear to auscultation bilaterally Cardio regular rate and regular rhythm GI normal to inspection, nondistended, normoactive bowel sounds, non-tender and non-distended Extremity normal capillary refill General Extremity: Negative for edema Skin Skin Narrative: Sacral pressure ulcers per wound nurse. Psych affect normal Appearance: appropriate Weight / BMI Weight Weight: 87.861 kg Body Mass Index (BMI) 27.0 ABG / Lab / Microbiology Data 07/03/24 05:26 07/03/24 05:26 Laboratory: Laboratory Results - last 24 hr 07/03/24 05:26: WBC 8.5, RBC 4.25 L, Hgb 13.5, Hct 41.3, MCV 97.2 H, MCH 31.8, MCHC 32.7, RDW Std Deviation 48.8 H, RDW Coeff of Mehrdad 13.6, Plt Count 269, MPV 9.5, Immature Gran % (Auto) 0.500, Neut % (Auto) 60.8, Lymph % (Auto) 26.6, Davis % (Auto) 9.6, Eos % (Auto) 1.8, Baso % (Auto) 0.7, Absolute Neuts (auto) 5.1, Absolute Lymphs (auto) 2.25, Nucleated RBC % 0, Sodium 134 L, Potassium 4.6, Chloride 101, Carbon Dioxide 28.0, Anion Gap 5, BUN 29 H, Creatinine 0.56 L, Estim Creat Clear Calc 73.21, Est GFR (MDRD) Af Amer 180, Est GFR (MDRD) Non-Af 149, BUN/Creatinine Ratio 52.1 H, Glucose 119 H, Calcium 9.1 07/03/24 13:50: Urine Color Yellow, Urine Clarity Sl. Cloudy, Urine pH 6.0, Ur Specific [place] 1.020, Urine Protein 100 H, Urine Glucose (UA) Normal, Urine Ketones Negative, Urine Occult Blood 250 H, Urine Nitrite Positive H, Urine Bilirubin Negative, Urine Urobilinogen Normal, Ur Leukocyte Esterase 25 H, Urine RBC 50-100 SEEN, Urine WBC 0-5 SEEN, Ur Squamous Epith Cells 0-5 SEEN, Amorphous Sediment 1+ URATE, Urine Bacteria 0 SEEN, Urine Mucus 0 SEEN D/C Instructions Discharge Diet: No restrictions Discharge Activity: Return to Normal Activity, May Shower and Use Walker Weight Bearing Status: Weight bearing as tolerated Call your doctor if you observe: Fever of 101 or Higher, Inability to urinate, Inability to have a bowel movement, Shortness of breath, Dizziness, Fainting spells, Swelling in the ankles, Chest pain and Uncontrolled pain Additional Instructions: Discharge home with 07/06/2024, [facility] PT/OT/SN. Please Follow Up With: Joe Braga Meaningful Use Info Meaningful Use Meaningful Use Diagnoses (Choose all that apply): None applicable Ischemic Stroke Statin Dosing Therapy Reference: STATIN DOSE THERAPY REFERENCE: * Patients > 75 years receive moderate or high dose statin therapy. * Patients 75 years or YOUNGER should receive HIGH intensity statin dose unless contraindicated. You will be required to document reason for non-treatment if statin daily dose does not meet guidelines. HIGH DOSE STATIN THERAPY DAILY Atorvastatin > than or = to 40 mg Rosuvastatin > than or = to 20 mg Amlodipine + Atorvastatin > than or = to 2.5/40 mg Ezetimibe + Simvastatin 10/80 mg Simvastatin 80mg Discharge Plan Admission Admit Date/Time: 06/24/24 14:50 Primary Reason for Your Visit: Debility. Attending Provider: Keaton Rader Chi Primary Care Provider: Jeramie Cervantes Instructions Additional Instructions / Restrictions: Discharge home with 07/06/2024, [facility] PT/OT/SN. Discharge Orders/Prescriptions Prescriptions: New ciprofloxacin HCl 250 mg Tablet 250 mg PO BID 4 Days Qty: 8 0RF tamsulosin 0.4 mg Capsule 0.8 mg PO QHS Qty: 0 0RF Continued benzonatate 100 mg capsule 100 mg PO TID PRN PRN (Reason: cough) calcium carbonate-vitamin D3 [Oyster Shell Calcium-Vit D3] 500 mg-5 mcg (200 unit) tablet 1 tab PO DAILY carvedilol 3.125 mg tablet 3.125 mg PO BID cholecalciferol (vitamin D3) 125 mcg (5,000 unit) capsule 125 mcg PO DAILY lisinopril 10 mg tablet 10 mg PO DAILY simvastatin 20 mg tablet 20 mg PO QPM Xtandi 40 mg capsule 160 mg PO QHS zinc sulfate [Orazinc] 50 mg zinc (220 mg) capsule 50 mg PO DAILY ascorbic acid (vitamin C) 500 mg capsule 500 mg PO DAILY aspirin 81 mg capsule 81 mg PO DAILY Discontinued albuterol sulfate 90 mcg/actuation HFA aerosol inhaler 2 inh inhalation Q4H PRN (Reason: Breathing) collagenase clostridium histo. 250 unit/gram ointment 1 applic topical DAILY tamsulosin 0.4 mg capsule 0.4 mg PO BID PRN (Reason: BPH) polyethylene glycol 3350 [Miralax] 17 gram/dose powder 17 g PO DAILY PRN (Reason: constipation) Referrals / Follow Up: Jeramie Cervantes MD [Primary Care Provider] - Disposition Disposition (needs filled in before D/C Order can be placed): Home Health Service
[2024-07-03] MEDS: ENZALUTAMIDE 40 MG CAPSULE 160 MG PO (22:33)
[2024-07-03] MEDS: Ciprofloxacin 250 MG Tablet PO (22:33)
[2024-07-03] MEDS: Tamsulosin HCl 0.4 MG Capsule 0.8 MG PO (22:34)
[2024-07-03] MEDS: Atorvastatin Calcium 10 MG Tablet PO (22:34)
[2024-07-04] MEDS: Enoxaparin 40 MG/0.4 ML Syringe SC (05:05)
--- NOTE | 2024-07-04 05:08 | NURSING ---
Afebrile, started on PO atb for positive UA results and culture pending. Urine was dark red earlier in the shift and is now clear yellow and he is asymptomatic.
[2024-07-04 05:10] VITALS: TEMP 35.6
[2024-07-04] MEDS: Calcium Carb/Vitamin D 1 TABLET Tablet PO (07:50)
[2024-07-04] MEDS: Ascorbic Acid 500 MG Tablet PO (07:51)
[2024-07-04] MEDS: Lisinopril 10 MG Tablet PO (07:51)
[2024-07-04] MEDS: Zinc Sulfate 50 mg zinc (220 mg) ORAL capsule PO (07:51)
[2024-07-04] MEDS: Aspirin 81 MG TAB.CHEW PO (07:51)
[2024-07-04] MEDS: Cholecalciferol (Vit D3) 125 MCG CAPSULE (5,000 UNITS) PO (07:52)
[2024-07-04] MEDS: Ciprofloxacin 250 MG Tablet PO (07:52)
[2024-07-04] MEDS: Carvedilol 3.125 MG TABLET PO ×2 (07:52→21:06)
[2024-07-04] MEDS: Ensure Plus High Protein 120 ML LIQUID PO ×3 (07:54→16:45)
[2024-07-04 07:58] VITALS: BP 116/60; PULSE 60
--- NOTE | 2024-07-04 08:37 | NURSING ---
Dr. Rader ordered CT abdomen/pelvis no contrast, stone protocol. Patient with hematuria, flank pain. Insurance approved, case #[id number], approval #[id number]. Order faxed to CT.
--- NOTE | 2024-07-04 09:12 | NURSING ---
0900 R' OFF UNIT FOR CT SCAN.
--- NOTE | 2024-07-04 09:33 | NURSING ---
0925 R' BACK TO UNIT FROM CT SCAN
[2024-07-04 10:18] VITALS: BMI 26.7
[2024-07-04 13:35] VITALS: PULSE 61; RESP 16; TEMP 36.1; O2SAT 96
[2024-07-04] MEDS: ENZALUTAMIDE 40 MG CAPSULE 160 MG PO (21:06)
[2024-07-04] MEDS: Atorvastatin Calcium 10 MG Tablet PO (21:06)
[2024-07-04] MEDS: Tamsulosin HCl 0.4 MG Capsule 0.8 MG PO (21:06)
[2024-07-05] MEDS: Enoxaparin 40 MG/0.4 ML Syringe SC (04:51)
[2024-07-05] MEDS: Calcium Carb/Vitamin D 1 TABLET Tablet PO (08:04)
[2024-07-05] MEDS: Ascorbic Acid 500 MG Tablet PO (08:04)
[2024-07-05] MEDS: Aspirin 81 MG TAB.CHEW PO (08:04)
[2024-07-05] MEDS: Lisinopril 10 MG Tablet PO (08:04)
[2024-07-05] MEDS: Cholecalciferol (Vit D3) 125 MCG CAPSULE (5,000 UNITS) PO (08:04)
[2024-07-05] MEDS: Carvedilol 3.125 MG TABLET PO ×2 (08:04→20:36)
[2024-07-05] MEDS: Zinc Sulfate 50 mg zinc (220 mg) ORAL capsule PO (08:04)
[2024-07-05] MEDS: Ensure Plus High Protein 120 ML LIQUID PO ×3 (08:06→17:00)
[2024-07-05 08:13] VITALS: BP 132/66; PULSE 68
--- NOTE | 2024-07-05 09:43 | NURSING ---
Talked with Yamilka at Dr. Hussein's office about consult, she said he is in surgery today but they will get him the message.
[2024-07-05] MEDS: 0.9% Normal Saline (1000mL) 1,000 ML 125 ML IV ×2 (10:05→18:26)
[2024-07-05] MEDS: Magnesium Citrate 300 ML PO (10:17)
--- NOTE | 2024-07-05 12:50 | NURSING ---
Dr. Rader updated on CT of abdomen results. N.O. received to consult Jovita Stone in left ureter and Mag Citrate for Constipation. Order read back.
[2024-07-05 15:10] VITALS: BP 107/60; PULSE 66; RESP 18; TEMP 36.2; O2SAT 94
[2024-07-05 20:35] VITALS: BP 111/59; PULSE 64
[2024-07-05] MEDS: Tamsulosin HCl 0.4 MG Capsule 0.8 MG PO (20:35)
[2024-07-05] MEDS: ENZALUTAMIDE 40 MG CAPSULE 160 MG PO (20:35)
[2024-07-05] MEDS: Atorvastatin Calcium 10 MG Tablet PO (20:36)
[2024-07-06] MEDS: 0.9% Normal Saline (1000mL) 1,000 ML 125 ML IV (02:55)
[2024-07-06] MEDS: Enoxaparin 40 MG/0.4 ML Syringe SC (05:58)
[2024-07-06 06:10] VITALS: PULSE 70; O2SAT 93
--- NOTE | 2024-07-06 07:42 | CON.PCM.UR_ITS ---
Assessment & Plan Assessment/Plan (1) Ureteral calculi: PLAN: plan for cystoscopy left stent placement HPI Consult Data Date of Consult: 07/06/24 HPI Narrative Reason for Consultation: ureteral calculi left HPI Narrative: IZABELA LONDON, is a 84 male who currently is in rehab and transitional care unit developed flank pain and hematuria CT scan was done at demonstrated a 7 mm stone the distal left ureter, plan at this point would be to stabilize the patient and getting the surgery for cystoscopy left stent placement later today will make him and peel for surgery now [facility] Medical History Coronary artery disease Hyperlipidemia, unspecified Essential (primary) hypertension Burkitt lymphoma Prostate cancer Dehydration Antibiotic-associated diarrhea Stage III pressure ulcer of sacral region Weakness Debility Home Medications ?Medication ?Instructions ?Recorded ?Last Taken ?Type ascorbic acid (vitamin C) 500 mg 500 mg PO DAILY Supplement 06/24/24 06/24/24 09:30 History capsule aspirin 81 mg capsule 81 mg PO DAILY Heart 06/24/24 06/23/24 22:15 History benzonatate 100 mg capsule 100 mg PO TID PRN PRN cough 06/24/24 Unknown History calcium carbonate 500 mg-vitamin 1 tab PO DAILY supplement 06/24/24 06/24/24 09:30 History D3 5 mcg (200 unit) tablet (Oyster Shell Calcium-Vitamin D3) carvedilol 3.125 mg tablet 3.125 mg PO BID BP 06/24/24 06/24/24 09:30 History cholecalciferol (vitamin D3) 125 125 mcg PO DAILY SUPPLEMENT 06/24/24 Unknown History mcg (5,000 unit) capsule enzalutamide 40 mg capsule (Xtandi) 160 mg PO QHS Cancer 06/24/24 06/23/24 22:15 History lisinopril 10 mg tablet 10 mg PO DAILY BP 06/24/24 06/24/24 09:30 History simvastatin 20 mg tablet 20 mg PO QPM Cholesterol 06/24/24 Unknown History zinc sulfate 50 mg zinc (220 mg) 50 mg PO DAILY Supplement 06/24/24 06/24/24 09:35 History capsule (Orazinc) tamsulosin 0.4 mg capsule 0.8 mg (2 x 0.4 mg) PO QHS #0 caps 07/03/24 Unknown Rx Allergy/AdvReac Type Severity Reaction Status Date / Time No Known Allergies Allergy Verified 06/24/24 16:10 Family History Father , at 77. Colon cancer Surgical History History of total left knee replacement History of tonsillectomy and adenoidectomy History of arteriovenous graft History of cataract surgery History of coronary artery stent placement History of colonoscopy History of bone graft History of back surgery Social History household members: spouse Smoking Status: Former smoker alcohol intake: current details: Glass of wine per week. substance use type: does not use ROS Constitutional Constitutional: Denies chills, fever(s) or malaise Eyes Eyes: Denies blurry vision or change in vision ENT HEENT: Reports none Cardiovascular Cardiovascular: Denies chest pain or palpitations Respiratory/Chest Respiratory/Chest: Denies cough or shortness of breath with exertion Gastrointestinal Gastrointestinal: Denies abdominal pain, constipation or diarrhea Musculoskeletal Musculoskeletal: Denies back pain, joint stiffness or joint swelling Integumentary Integumentary: Denies dry skin, jaundice, lesions or rash Neurologic Neurologic: Denies confusion, syncope or weakness Psychiatric Psychiatric: Reports none; Denies anxiety or depression Endocrine Endocrinology: Denies excessive sweating, fatigue or flushing Hematologic/Lymphatic Hematologic/Lymphatic: Denies anemia, easy bleeding or easy bruising Physical Exam Const alert and oriented x3 General Appearance: cooperative HEENT normocephalic and head/scalp atraumatic Eyes PERRL and EOMs intact bilaterally Neck supple, no JVD and no carotid bruits Resp normal respiratory effort, normal air movement and clear to auscultation bilaterally Cardio regular rate and no murmurs GI normal to inspection, nondistended, normoactive bowel sounds and soft to palpation Extremity normal capillary refill General Extremity: no tenderness to palpation of joints or extremities; Negative for edema Skin no rashes or lesions noted and no wounds General Skin Exam: no breakdown Neuro CN's II-XII intact bilaterally Psych affect normal Appearance: appropriate Medical Records Data Attestation: I reviewed the patient's medical records Lab / Micro Data 07/03/24 05:26 07/03/24 05:26 Micro: Microbiology 07/03/24 13:50 Urine, Catheterized Urine Culture - Final Culture exhibits no growth. Imaging CT scan demonstrates obstructing stone the distal left ureter 7 mm in size
[2024-07-06] MEDS: Carvedilol 3.125 MG TABLET PO (08:02)
[2024-07-06] MEDS: Lisinopril 10 MG Tablet PO (08:02)
[2024-07-06 08:31] VITALS: BP 112/58; PULSE 56
[2024-07-06] MEDS: Dext 5%-0.45% NS 1,000 ML 75 ML IV (08:38)
--- NOTE | 2024-07-06 12:10 | CASEMGMT ---
Social Work SW conducted BIMS () and PHQ-2 () completed for MDS assessment. Halle Nazario MSW ADMINISTRATIVE CLERK
--- NOTE | 2024-07-06 13:54 | MDS.RN ---
Information for the MDS was obtained from review of the clinical record, interview of resident, staff, and direct observation of resident?s care.
== END 2024-07-06 14:10 | disposition short-term general hospital (02) | DRG 593 ==
PROVIDERS: Admitting Provider Family Medicine Geriatric Medicine; PCP Family Medicine; Visit Provider Family Medicine Geriatric Medicine
DX: L89.153 Pressure ulcer of sacral region, stage 3 (principal); C83.70 Burkitt lymphoma, unspecified site; K52.1 Toxic gastroenteritis and colitis; N13.2 Hydronephrosis with renal and ureteral calculous obstruction; C61 Malignant neoplasm of prostate; E86.0 Dehydration; E53.8 Deficiency of other specified B group vitamins; I10 Essential (primary) hypertension; E55.9 Vitamin D deficiency, unspecified; I25.10 Atherosclerotic heart disease of native coronary artery without angina pectoris; E78.5 Hyperlipidemia, unspecified; Z87.891 Personal history of nicotine dependence; Z79.82 Long term (current) use of aspirin; N40.0 Benign prostatic hyperplasia without lower urinary tract symptoms; Z79.899 Other long term (current) drug therapy; T36.95XD Adverse effect of unspecified systemic antibiotic, subsequent encounter
CPT/HCPCS: 36415; 80048; 80061; 81001; 82306; 85025; 87086; 97110; 97116; 97163; 97166; 97530; 97535; 97802; J7030; J7799

== ENCOUNTER → 2024-07-04 | Outpatient (CLI) | payer MEDICARE, SELFPAY ==
--- NOTE | 2024-07-04 08:46 | CT_ITS ---
STUDY: CT ABDOMEN AND PELVIS WITHOUT CONTRAST REASON FOR EXAM: Male, 84 years old. Pain. History of renal stones. RADIATION DOSAGE (If Supplied By Facility): CTDIvol = ( 13.43 ) mGy, DLP = ( 708.02 ) mGycm TECHNIQUE: Transaxial images were obtained from the dome of the diaphragm to the symphysis pubis without oral contrast, and without intravenous contrast. Sagittal and coronal images were reconstructed. CT scan performed according to ALARA principles. Automated exposure control used during exam. COMPARISON: No relevant prior comparison study available FINDINGS: Evaluation of the abdominal viscera is limited in the absence of intravenous contrast. LOWER THORAX: There is bibasilar which may be due to atelectasis, but a component of infection cannot be excluded. There are coronary artery calcifications. The visualized portions of the heart and pericardium are within normal limits. GALLBLADDER / BILE DUCTS: There are no calcified gallstones present. The common bile duct is normal in caliber. There are no calcified ductal stones. LIVER: The liver demonstrates an unremarkable unenhanced appearance. SPLEEN: The spleen is normal in size. PANCREAS: The pancreas demonstrates an unremarkable unenhanced appearance. ADRENAL GLANDS: The adrenal glands are within normal limits. KIDNEYS / BLADDER: There is a 7 mm stone in the left distal ureter with minimal left hydronephrosis. There are bilateral subcentimeter nonobstructing renal collecting system stones, measuring 2 to 3 mm. There are no right ureteral stones. There is no right hydronephrosis. There are simple cysts in the right kidney. These are benign and do not require follow-up. The urinary bladder is partially distended and appears grossly unremarkable. STOMACH / BOWEL: Normal visualized stomach. There is no bowel obstruction or inflammation. There is a large amount of stool in the colon, consistent with constipation. The appendix is visualized and appears normal. PERITONEUM / RETROPERITONEUM: There is no abdominal or pelvic free air, free fluid or fluid collection. There is no abnormal soft tissue mass identified. There is no abdominal or pelvic lymphadenopathy. VESSELS: The aorta is normal in caliber. The IVC is unremarkable. BONES: The patient is status post posterior fusion of L4/L5. There are degenerative changes noted in the spine. There are no destructive osseous lesions. SOFT TISSUES: The visualized soft tissues are within normal limits. CT/Abdomen/Pelvis without Cont IMPRESSION: 7 mm stone in the left distal ureter with minimal left hydronephrosis. Bilateral subcentimeter nonobstructing renal collecting system stones. No right ureteral stones. No right hydronephrosis. No bowel obstruction or inflammation. Constipation. Normal appendix. Bibasilar consolidation which may be due to atelectasis, but a component of infection cannot be excluded. Atherosclerosis and coronary artery disease. Electronically Signed: Jimenez Avila MD at 8:08 EDT ,
== END | disposition home or self-care (01) ==
PROVIDERS: PCP Family Medicine; Referring Provider Family Medicine Geriatric Medicine; Visit Provider Family Medicine Geriatric Medicine
DX: N20.0 Calculus of kidney (principal)
CPT/HCPCS: 74176

== ENCOUNTER 2024-07-06 14:32 | Day surgery (SDC) | payer MEDICARE, SELFPAY ==
[2024-07-06] VITALS (9 sets, daily range): BP systolic 126–140; BP diastolic 60–73; PULSE 57–77; RESP 16; TEMP 36.1; O2SAT 95–98; BMI 26.6
--- NOTE | 2024-07-06 | IMM_PTH ---
PATIENT: IZABELA LONDON LOC: [facility] U#:[id number] AGE/SX: 84/M ROOM: RE07/06/[address]: Dr. Shalom Hussein MD : 1940 BED: DIS: 07/06/2024 SPEC #: [id number] RECD: 07/10/24 11:49 STATUS: SANTIAGO REQ #: [id number] WALESKA: 07/06/24 00:[address]: Shalom Hussein DEPT: IMMUNOHISTOCHEMISTRY RECD BY: Nikita Alexander ENTERED: 07/10/24 11:50 SP TYPE: IMMUNO OTHR DR: Dr. Jeramie Cervantes MD Tissues: Urinary bladder, NOS Procedures: RCC (add) CEA (add) CK20 (add) CK5-6 (add) CK7 (add) CK8 (add) KI-67 (add) P53 (add) 34BE12 (add) Pankeratin (initial) P40 (add) CDX2 (add) CD44 (add) PSAP (add) PHYSICIAN & [address] [address] SPECIMEN INFORMATION: Tissue Source: Bladder tissue Clinical Info: Left ureteral calculi Specimen Number: [id number] CPT code: 50813,54377v74 METHODOLOGY: Deparaffinized sections of prefer/formalin-fixed tissue or PAP/DQ stained slides are incubated with monoclonal/polyclonal antibodies/oligonucleotide probes. Localization is made via biotin free immunoperoxidase method. Appropriate controls are performed and reacted as expected. Results on target cell population are indicated in the following table: RESULTS: ANTIBODY / CLONE RESULT AE1-3 (AE1/AE3/PCK26) positive CK7 (OV-TL12/30) negative CK8 (78avqqP97) positive CK20 (KS20.8) negative CDX2 (EWD0183F) negative 34BE12 (34BE12) positive, focal, dim RCC (PN-15) negative PSAP (PASE/4LJ) positive CK5-6 (D5 & 1684) negative P40 (BC28) negative CEA (11-7/TF-3HB-1) negative P53 (DO-7) positive, wild type Ki-67 (30-9) positive, 40% Uroplakin III (SP73) negative These tests were developed and their performance characteristics determined by [facility]. They may not have been cleared or approved by the U.S. Food and Drug Administration. The FDA has determined that such clearance or approval is not necessary. The above immunohistochemical/dualISH markers are ordered and reviewed by the Pathologist. INTERPRETATION: Urinary bladder tissue, ureteroscopy: Infiltrating carcinoma. COMMENT: A prostatic primary is favored. Case has been reviewed in consultation with Dr. Brock who concurs with the above diagnosis. IDC:SHAY BAKERmr 07/12/2024
[2024-07-06] MEDS: Lactated Ringers 1,000 ML 15 ML IV (14:37)
--- NOTE | 2024-07-06 15:17 | PRE.ANES_ITS ---
ASA Classification* ASA Classification ASA Classification: 3 Assessment & Plan Anesthesia* Anesthesia Assessment Anesthesia Assessment: Discussed sedation and/or anesthesia options, risks, benefits, and alternatives with patient/parents/legal guardian/POA. Questions invited. The patient/parents/legal guardian/POA seems to understand and agrees to proceed with anesthesia plan. Reviewed the physical assessment, medical history, allergy history and patient home medications list prior to surgery/procedure/anesthetic and documented any changes. Performed airway and anesthesia risk assessments. Anesthesia Type Anesthesia Type: MAC History Source History Obtained from:: Patient and Chart Anesthesia Focused Assessment* Temperature: 96.9 F Pulse Rate: 57 Blood Pressure: 126/60 Respiratory Rate: 16 Pulse Ox: 98 Oxygen Delivery Method: Room Air Airway Assessment Mouth opens: >3 cm Mallampati Score: III Teeth Condition: Caps/Crowns (Patient has a couple crowns which are tight.) Neck Range of motion (ROM): Limited ROM (Somewhat decreased extension) Focused Labs Anesthesia Preop lab: CBC WBC 8.5 K/mm3 (4.4-11.0) 07/03/24 05:26 RBC 4.25 M/mm3 (4.6-6.2) L 07/03/24 05:26 Hgb 13.5 g/dL (13.0-16.5) 07/03/24 05:26 Hct 41.3 % (40-54) 07/03/24 05:26 Plt Count 269 K/mm3 (150-450) 07/03/24 05:26 CHEMISTRY Potassium 4.6 mmol/L (3.5-5.1) 07/03/24 05:26 Sodium 134 mmol/L (136-145) L 07/03/24 05:26 BUN 29 mg/dL (7-18) H 07/03/24 05:26 Creatinine 0.56 mg/dL (0.70-1.30) L 07/03/24 05:26 Glucose 119 mg/dL (74-106) H 07/03/24 05:26 COAG Pre-Assessment Diagnosis/Proposed Procedure Planned Operative Procedure(s): Cystoscopy left side with stent placement. 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 When Was Last Pacemaker Check QUESTION #4 FULL TEXT: You/Your Family Experience fever (hyperthermia) with Anesthesia Last Oral Intake Last Oral intake: Last Oral Intake NPO since 06:00 07/06/24 14:34 Meds taken in AM with sips of Yes 07/06/24 14:34 water? Meds patient instructed to lisinopril, carvedilol 07/06/24 14:34 take am of surgery PONV PONV - transportation refrigeration technician: PONV - transportation refrigeration technician Female HX of Motion Sickness HX of N/V After Surgery Non-Smoker Duration of Surgery greater than 60 minutes Number of Risk Factors PONV Score Height & Weight Height & Weight: Anesthesia: Height & Weight Height 5 ft 11 in 07/06/24 14:34 Weight: 86.636 kg 07/06/24 14:34 Body Mass Index (BMI) 26.6 07/06/24 14:34 Respiratory Assessment Respiratory Assessment - transportation refrigeration technician: Respiratory Tract Infection Hx - transportation refrigeration technician Hx Respiratory Tract Infection Any additional information?: Yes Hx Respiratory Tract Infection: Yes (Patient had bronchitis 17 days ago, this has resolved.) STOP Sleep Apnea STOP Sleep Apnea - transportation refrigeration technician: STOP Sleep Apnea - transportation refrigeration technician Hx Hypertension Yes 06/25/24 07:59 Hx Sleep Apnea No 06/24/24 15:14 CPAP BIPAP Do you snore loudly (louder than talking or can be heard Do you often feel tired/ fatigued/ sleepy during daytime? Has anyone observed you stop breathing during sleep? STOP Results QUESTION #5 FULL TEXT : Do you snore loudly (louder than talking or can be heard through closed doors)? Tobacco Use History Tobacco Use History - transportation refrigeration technician: Tobacco Use History - transportation refrigeration technician Tobacco Use Smoking Status Former smoker 06/24/24 17:30 Hx Tobacco Use No 06/24/24 15:14 Years Smoking Packs Smoked per Day Smoking Cessation Date was within the last 15 years Hx Smoking Cessation Date Hx Smoking Cessation Counseling Hematologic Medial History Hematologic Hx - transportation refrigeration technician: Hematologic Medical Hx - rn icu Hx of Blood Transfusion Hx of Transfusion in last 3 Months Date of Last Transfusion (if within last 3 months) Ever experience any problems with transfusion(s)? Specify any problems Hx of Preganancy in last 3 Months Nurse Filling Out Transfusion & Questions: Date: Time: Patient unable to answer at this time (ie. confused, unrespo /Reproduction History /Reproductive History - transportation refrigeration technician: /Reproductive Hx- transportation refrigeration technician Hx Now Gestational Age (in weeks): EDC: Hx Hx Para Hx Section SAB Active Medications Active Medications: Current Medications Generic Name Dose Route Start Last Admin Trade Name Freq PRN Reason Stop Dose Admin Lactated Ringer's 1,000 mls @ 15 mls/hr 07/06/24 14:30 07/06/24 14:37 IV 15 mls/hr .Q48H MARCIAL Administration PFSH Medical History Coronary artery disease Hyperlipidemia, unspecified Essential (primary) hypertension Burkitt lymphoma Prostate cancer Dehydration Antibiotic-associated diarrhea Stage III pressure ulcer of sacral region Weakness Debility Home Medications ?Medication ?Instructions ?Recorded ?Last Taken ?Type ascorbic acid (vitamin C) 500 mg 500 mg PO DAILY Supplement 06/24/24 06/24/24 09:30 History capsule aspirin 81 mg capsule 81 mg PO DAILY Heart 06/24/24 06/23/24 22:15 History calcium carbonate 500 mg-vitamin 1 tab PO DAILY supplement 06/24/24 06/24/24 09:30 History D3 5 mcg (200 unit) tablet (Oyster Shell Calcium-Vitamin D3) carvedilol 3.125 mg tablet 3.125 mg PO BID BP 06/24/24 07/06/24 History cholecalciferol (vitamin D3) 125 125 mcg PO DAILY SUPPLEMENT 06/24/24 Unknown History mcg (5,000 unit) capsule enzalutamide 40 mg capsule (Xtandi) 160 mg PO QHS Cancer 06/24/24 06/23/24 22:15 History lisinopril 10 mg tablet 10 mg PO DAILY BP 06/24/24 07/06/24 History simvastatin 20 mg tablet 20 mg PO QPM Cholesterol 06/24/24 Unknown History zinc sulfate 50 mg zinc (220 mg) 50 mg PO DAILY Supplement 06/24/24 06/24/24 09:35 History capsule (Orazinc) tamsulosin 0.4 mg capsule 0.4 mg PO 4X/DAY 07/06/24 Unknown History Allergy/AdvReac Type Severity Reaction Status Date / Time No Known Allergies Allergy Verified 07/06/24 14:32 Family History Father , at 77. Colon cancer Surgical History History of total left knee replacement History of tonsillectomy and adenoidectomy History of arteriovenous graft History of cataract surgery History of coronary artery stent placement History of colonoscopy History of bone graft History of back surgery Social History household members: spouse Smoking Status: Former smoker alcohol intake: current details: Glass of wine per week. substance use type: does not use Review of Systems (Anesthesia) ROS Narrative System reviewed and no additional complaints, except as documented.
--- NOTE | 2024-07-06 16:00 | BLB_PTH ---
PATIENT: IZABELA LONDON LOC: [facility] [place] U#:[id number] AGE/SX: 84/M ROOM: RE07/06/[address]: Dr. Shalom Hussein MD : 1940 BED: DIS: 07/06/2024 SPEC #: [id number] RECD: 07/06/24 17:49 STATUS: SANTIAGO DOLL #: [id number] WALESKA: 07/06/24 16:[address]: Shalom Hussein DEPT: SURGICAL PATHOLOGY RECD BY: Marlene Camargo ENTERED: 07/07/24 07:36 SP TYPE: TURB OTHR DR: Dr. Jeramie Cervantes MD Tissues: Urinary bladder, NOS Procedures: Surgery Specimen Level V HEADER OPERATION: Ureteroscopy, laser PRE-OP DIAGNOSIS: Left ureteral calculi TISSUE SUBMITTED: Bladder tissue MICROSCOPIC DIAGNOSIS Urinary bladder, transurethral resection: Consistent with metastatic prostatic carcinoma. See cancer template below. AM. 07/10/2024 COMMENT BLADDER CANCER (TUR) SUMMARY Procedure: Transurethral resection of bladder tumor (TURBT) Tumor site: Not specified Histologic type: Consistent with Invasive prostatic carcinoma Associated epithelial lesions: None identified Histologic grade: 2/3 Tumor configuration: Non-papillary Muscularis propria presence: Not present in biopsy Lymph vascular invasion: Not identified Tumor extension: Tumor invades the lamina propria (subepithelial connective tissue). Additional pathologic findings: Tumor necrosis and calcific debris. PATHOLOGIC STAGE: T1 Nx Mx The above summary is in compliance with [employer] (CAP) Cancer Protocols Checklist and [place] Joint Committee on Cancer (AJCC), Staging Manual, 8th Ed. Immunohistochemistry ([id number]) supports the above diagnosis. Case has been reviewed in consultation with Dr. Brock who concurs with the above diagnosis. IDC:SJ MICROSCOPIC DESCRIPTION Slides are reviewed. GROSS DESCRIPTION Received in fixative is one container labeled with the patient's name and designated Bladder tumor. The specimen consists of multiple irregular fragments of sanford-brown soft tissue mixed with fragments of blood clot and stone that in aggregate measure 2.5 x 2.0 x 0.2 cm. The specimen is totally submitted in one cassette. SJPhillipmr 07/07/2024 TC:0 CPT:51838
[2024-07-06] MEDS: Cefazolin 2 GM in 0.9% Normal Saline (100mL Bag) 100 ML IV (16:38)
--- NOTE | 2024-07-06 17:12 | OP.PCM_ITS ---
Report of Operation Date of Procedure: 07/06/24 Pre-Operative Diagnosis: Left ureteral calculi Post-Operative Diagnosis: Left ureteral calculi Surgery/Procedure Performed:: Cystoscopy balloon dilation of left ureter, and left ureteroscopy laser lithotripsy of stone, and TURBT. Description of Surgical Findings:: This is a patient who presents to the hospital for treatment for an obstructing distal ureter calculi. I discussed with the patient how the surgery would be performed and we reviewed the risks and benefits of the surgery. The risk and benefits include the risk of failure to remove the stone completely and that the patient may need multiple procedures. We discussed the risk of an infection, the risk of bleeding. We discussed the very rare risk of serious complicated injury to the ureter. The patient understands that if the stone is not able to be removed safely that we may abort the procedure and place a stent. After full discussion and all questions address with the patient the consent form was signed the side was marked appropriately and the patient was taken back to the operating room for the procedure. The patient was taken back to the operating room. After induction of anesthesia by the anesthesiology team the patient was placed in dorsolithotomy position. The genitals were prepped and draped in usual sterile fashion. I went into the bladder with a 21 [place] rigid cystourethroscope through the urethra. Upon entering the bladder I inspected the trigone the left and right ureteral orifice and the bladder itself. I then cannulated the left ureteral orifice and advanced a 0.038 Glidewire up into the kidney. Then a ureteral balloon dilator was advanced over the wire and the distal ureter was balloon dilated with a 12 Fr x 5cm balloon dilator. After 3 minutes of dilating the ureter the balloon was backloaded off the 0.038 glidewire then the safety wire was left in place. I then placed a second 0.038 Guidewire as a working wire and over the working 0.038 guidewire I went in with the serenity rigide 7.5fr ureteroscope. I was able to go inside with the 7.5Fr serenity rigid utereroscope and I pulled out the working guidewire and then through the 7.5 fr simirigid ureteroscope I engage the stone in the distal ureter with laser lithotripsy using a 270miron laser fiber with energy setting of 6 Hertz and 0.6 J until the stone was lasered into tiny little pieces that should pass on their own. I then backed out of the ureter left the wire in place and then over the wire, all stone fragement removed. I then drained the patient's bladder the a tumor was see on the median lobe of the protate and proceeded with TURBT. I went into the bladder with a 30 degree lens and a cystoscope was performed and identified the tumor the tumors which was about 2.5 centimeters in size and occupying mostly the medain lobe of the prostate.. I then switched over to the 70 degree lens and inspected the rest of the bladder with a 70 degree lens to make sure there is no other tumors in the bladder and to identify all the tumor locations. The right and left ureteral orifice were identified. The tumor was not involved in the ureteral orifices. I then placed the Olympus bipolar resectoscope with a large loop into the bladder. I then started resected the tumor and started superficially shaving small little pieces working my way to the base of the tumor. The tumor pieces were then flushed out of the bladder and continued resecting the tumor until finally I got down to the base of the tumor on the median lobe. I then cauterized extensively the tumor base and also circumferentially around where the tumor was. Again we made sure to evacuate all the pieces out the bladder. I made sure there was no more bleeding from the base of the bladder and then over the tumor pieces were then evacuated out and sent off as a specimen. After the resection of the entire tumor was completed then benitez catheter was placed, he will go home with a benitez. Surgeon: Shalom Hussein Type of Anesthesia: General Drains: benitez 16 fr Estimated Blood Loss (mL): 0 Admit VTE Documentation VTE Present on Admission: No VTE Mechan Device Prophylaxis: SCD's VTE Pharm Prophylaxis ordered?: No
--- NOTE | 2024-07-06 17:18 | DCINST_ITS ---
Discharge Instructions Diet Discharge Diet: No restrictions Activity Discharge Activity: Return to Normal Activity Dressing / Incision Call your doctor if you observe: Fever of 101 or Higher Catheter: Freitas to leg bag and Freitas to large bag Drain: [place] Follow Up Care Please Follow Up With: Shalom Hussein MD When: Call [phone] for an appointment Test Results: Test results from this visit will be discussed in further detail at your follow- up appointment, if applicable. Discharge Plan Admission Attending Provider: Shalom Hussein Primary Care Provider: Jeramie Cervantes Instructions Print Language: Kazakh Discharge Orders/Prescriptions Prescriptions: No Action calcium carbonate-vitamin D3 [Oyster Shell Calcium-Vit D3] 500 mg-5 mcg (200 unit) tablet 1 tab PO DAILY carvedilol 3.125 mg tablet 3.125 mg PO BID cholecalciferol (vitamin D3) 125 mcg (5,000 unit) capsule 125 mcg PO DAILY lisinopril 10 mg tablet 10 mg PO DAILY simvastatin 20 mg tablet 20 mg PO QPM Xtandi 40 mg capsule 160 mg PO QHS zinc sulfate [Orazinc] 50 mg zinc (220 mg) capsule 50 mg PO DAILY ascorbic acid (vitamin C) 500 mg capsule 500 mg PO DAILY aspirin 81 mg capsule 81 mg PO DAILY tamsulosin 0.4 mg Capsule 0.4 mg PO 4X/DAY Referrals / Follow Up: Jeramie Cervantes MD [Primary Care Provider] - Disposition Disposition (needs filled in before D/C Order can be placed): Home, Self Care
--- NOTE | 2024-07-06 17:22 | PCM.POST.ANE ---
Anesthesia: Postop Eval I Current Vital Signs Temperature: 96.9 F Pulse Rate: 74 Blood Pressure: 140/73 Respiratory Rate: 16 Pulse Ox: 95 Oxygen Delivery Method: Room Air Assessment Airway patent: Yes Spontaneous unlabored respirations: Yes Mental status: Awake and Calm nausea: No Vomiting: No Anesthesia Complication: No Fluid Hydration Crystalloid volume administer (ml): 800 Total IV fluid infused: 800 Progress Note Anesthesia document: Postop Eval 1 completed: Yes
[2024-07-06] MEDS: Ketorolac 15 MG/ML Vial IV (17:36)
--- NOTE | 2024-07-07 14:28 | POSTOPAN2_ITS ---
Anesthesia Postop Eval I Sum Postop Eval Completion status Anesthesia document: Postop Eval 1 completed: Yes Anesthesia Postop Eval I Summary Anesthesia Postop Eval I Summary: Anesthesia Postop Eval I: Assessment Summary Airway patent Yes 07/06/24 17:24 WHISKEY PROOF READER.MDOT Spontaneous unlabored Yes 07/06/24 17:24 WHISKEY PROOF READER.MDOT respirations Mental status Awake,Calm 07/06/24 17:24 WHISKEY PROOF READER.MDOT nausea No 07/06/24 17:24 WHISKEY PROOF READER.MDOT Vomiting No 07/06/24 17:24 WHISKEY PROOF READER.MDOT Anesthesia Postop Eval I: Fluid Summary Crystalloid volume administer 800 07/06/24 17:24 WHISKEY PROOF READER.MDOT (ml) Colloids volume administered ( ml) Blood Product volume administered (ml) Total IV fluid infused 800 07/06/24 17:24 WHISKEY PROOF READER.MDOT Anesthesia Postop Eval I: Summary Notes Anesthesia Complication No 07/06/24 17:24 WHISKEY PROOF READER.OT Anesthesia Complication Comment: Post-operative progress note Anesthesia: Postop Eval II Evaluation Mental status: Awake and Calm Pain Level: 1 nausea: No Vomiting: No Complications Anesthesia Complication: No
--- NOTE | 2024-07-07 14:28 | PCM.POSTANE2 ---
Anesthesia Postop Eval I Sum Postop Eval Completion status Anesthesia document: Postop Eval 1 completed: Yes Anesthesia Postop Eval I Summary Anesthesia Postop Eval I Summary: Anesthesia Postop Eval I: Assessment Summary Airway patent Yes 07/06/24 17:24 SEED ANALYST.MDOT Spontaneous unlabored Yes 07/06/24 17:24 SEED ANALYST.MDOT respirations Mental status Awake,Calm 07/06/24 17:24 SEED ANALYST.MDOT nausea No 07/06/24 17:24 SEED ANALYST.MDOT Vomiting No 07/06/24 17:24 SEED ANALYST.MDOT Anesthesia Postop Eval I: Fluid Summary Crystalloid volume administer 800 07/06/24 17:24 SEED ANALYST.MDOT (ml) Colloids volume administered ( ml) Blood Product volume administered (ml) Total IV fluid infused 800 07/06/24 17:24 SEED ANALYST.MDOT Anesthesia Postop Eval I: Summary Notes Anesthesia Complication No 07/06/24 17:24 SEED ANALYST.OT Anesthesia Complication Comment: Post-operative progress note Anesthesia: Postop Eval II Evaluation Mental status: Awake and Calm Pain Level: 1 nausea: No Vomiting: No Complications Anesthesia Complication: No
== END 2024-07-06 18:25 | disposition home or self-care (01) ==
LOC: SDC 14:34 → AC 14:34
PROVIDERS: PCP Family Medicine; Referring Provider Urology; Visit Provider Urology
PROC: (CPT 52332; principal; 2024-07-06 15:50)
DX: C67.9 Malignant neoplasm of bladder, unspecified (principal); N20.1 Calculus of ureter; I25.10 Atherosclerotic heart disease of native coronary artery without angina pectoris; E78.5 Hyperlipidemia, unspecified; I10 Essential (primary) hypertension; Z95.5 Presence of coronary angioplasty implant and graft; Z87.891 Personal history of nicotine dependence; Z79.82 Long term (current) use of aspirin; Z85.46 Personal history of malignant neoplasm of prostate
CPT/HCPCS: 52353; 52344; 52235; 00918; 88307; 88341; 88342; J7120; C1769; J2405

== ENCOUNTER 2025-08-15 19:48 | Emergency (ER) | payer MEDICARE, SELFPAY ==
[2025-08-15 19:49] VITALS: BP 145/96; PULSE 101; RESP 16; TEMP 36.6; O2SAT 96
[2025-08-15 21:59] VITALS: BMI 29.4
[2025-08-15 22:00] VITALS: BP 133/88; PULSE 90; RESP 14; O2SAT 95
--- NOTE | 2025-08-15 22:00 | EX.ED.DYSGE1 ---
HPI History of Present Illness Chief Complaint: Complaint Narrative Narrative: Chief complaint and HPI: 85-year-old male with past medical history of prostate cancer on oral chemotherapy, HTN presents for evaluation of hematuria. Patient follows with urology, Dr. Payne. Patient states he developed hematuria earlier this evening which has continued. He endorses dysuria. He states he has some mild right flank pain and is concerned about possible kidney stone as he has a history of. He denies any fever, chills, shortness of breath, chest pain, nausea, vomiting. Review of systems: See HPI Medications: As listed on the chart Allergies: As listed on the chart PFSH: Per chart Vital signs: As listed on the chart. Reviewed. Physical exam: Gen: A&O x3, NAD Head: Normocephalic, atraumatic Eyes: No sclera icterus, conjunctiva clear ENT: Moist mucous membranes CV: RRR, no murmurs Resp: Lungs CTA BL, no w/r/c GI: Abd soft, non-distended, non-tender, no r/r/g : No CVA tenderness. Circumcised penis. No penile tenderness or discharge. Patient has dried blood at the penile meatus. No penile or testicular swelling. Normal lie and position of the testicles. No testicular tenderness, masses, or skin changes. No rashes. No palpable hernias. Musc: Full ROM, no deformity Skin: Warm, dry Neuro: Alert, oriented, grossly intact Psych: Cooperative, appropriate mood and affect [facility] Medical History Coronary artery disease Hyperlipidemia, unspecified Essential (primary) hypertension Burkitt lymphoma Prostate cancer Dehydration Antibiotic-associated diarrhea Stage III pressure ulcer of sacral region Weakness Debility Home Medications ?Medication ?Instructions ?Recorded ?Last Taken ?Type ascorbic acid (vitamin C) 500 mg 500 mg PO DAILY Supplement 06/24/24 06/24/24 09:30 History capsule aspirin 81 mg capsule 81 mg PO DAILY Heart 06/24/24 06/23/24 22:15 History calcium 500 mg (as 1 tab PO DAILY supplement 06/24/24 06/24/24 09:30 History carbonate)-vitamin D3 5 mcg (200 unit) tablet (Oyster Shell Calcium-Vitamin D3) carvedilol 3.125 mg tablet 3.125 mg PO BID BP 06/24/24 07/06/24 History cholecalciferol (vitamin D3) 125 125 mcg PO DAILY SUPPLEMENT 06/24/24 Unknown History mcg (5,000 unit) capsule enzalutamide 40 mg capsule (Xtandi) 160 mg PO QHS Cancer 06/24/24 06/23/24 22:15 History lisinopril 10 mg tablet 10 mg PO DAILY BP 06/24/24 07/06/24 History simvastatin 20 mg tablet 20 mg PO QPM Cholesterol 06/24/24 Unknown History zinc sulfate 50 mg zinc (220 mg) 50 mg PO DAILY Supplement 06/24/24 06/24/24 09:35 History capsule (Orazinc) tamsulosin 0.4 mg capsule 0.4 mg PO 4X/DAY 07/06/24 Unknown History Allergy/AdvReac Type Severity Reaction Status Date / Time amoxicillin Allergy Intermediate Diarrhea Verified 08/15/25 19:49 Family History Father , at 77. Colon cancer Surgical History History of total left knee replacement History of tonsillectomy and adenoidectomy History of arteriovenous graft History of cataract surgery History of coronary artery stent placement History of colonoscopy History of bone graft History of back surgery Social History household members: spouse Smoking Status: Former smoker alcohol intake: current details: Glass of wine per week. substance use type: does not use EXAM Physical Exam Const Vital Signs: 08/15/25 19:49 08/15/25 22:00 08/15/25 22:45 Temperature 98 F Temperature Source Oral Pulse Rate 101 H 90 80 Respiratory Rate 16 14 14 Blood Pressure 145/96 H 133/88 H 132/76 H Blood Pressure Mean 112 103 94 Pulse Ox 96 95 95 Oxygen Delivery Method Room Air Room Air Room Air MDM MDM MDM Narrative Medical decision making narrative: 85-year-old male with past medical history of prostate cancer on oral chemotherapy, HTN presents for evaluation of hematuria. Patient follows with urology, Dr. Payne. Patient states he developed hematuria earlier this evening which has continued. He endorses dysuria. He states he has some mild right flank pain. Differential diagnosis includes but is not limited to hematuria, UTI, electrolyte abnormality, JOSHUA, urolithiasis, urinary retention. Patient has gross hematuria therefore Freitas catheter will be placed for irrigation and flushing. NS bolus, Zofran, morphine ordered. Laboratory workup ordered including CT abdomen pelvis without contrast. Freitas catheter was placed and patient had gross hematuria requiring bladder irrigation. Urine has become more clear in color. CBC with leukocytosis of 16.3. No anemia. BMP without JOSHUA or significant electrolyte abnormality. UA positive for blood and UTI. Urine culture sent. On chart review there is no previous urine cultures. Levaquin ordered. CT abdomen pelvis shows right distal ureter calculus measuring 2 mm with moderate upstream hydroureteronephrosis. Small bilateral nonobstructing renal calculi. Ill-defined hyperdensity in the urinary bladder possibly retained contrast or calcifications. Small left pleural effusion. On reevaluation, urine is now mostly clear. Patient not endorsing any abdominal pain. He is nontoxic-appearing. Afebrile. Given that he follows with Dr. Payne, he was consulted and patient was discussed. Okay with discharge home on oral antibiotics. Follow-up with urology. Patient is already on Flomax. Will send prescription for Levaquin and Zofran. He declined narcotics. Strict return precautions explained. And his confirmed understanding. Patient will discharge. Impression: 1. Gross hematuria 2. Right distal urolithiasis, 2 mm, moderate upstream hydroureteronephrosis 3. UTI Lab Data Labs: Laboratory Results - last 24 hr 08/15/25 22:05 WBC 16.3 H RBC 4.21 L Hgb 14.0 Hct 42.3 MCV 100.5 H MCH 33.3 H MCHC 33.1 RDW Std Deviation 49.1 H RDW Coeff of Mehrdad 13.3 Plt Count 225 MPV 10.3 Immature Gran % (Auto) 0.400 Neut % (Auto) 84.6 H Lymph % (Auto) 8.5 L [place] % (Auto) 6.0 Eos % (Auto) 0.2 Baso % (Auto) 0.3 Absolute Neuts (auto) 13.8 H Absolute Lymphs (auto) 1.38 Nucleated RBC % 0 Sodium 142 Potassium 3.7 Chloride 105 Carbon Dioxide 27.4 Anion Gap 10 BUN 17 Creatinine 0.65 L Estim Creat Clear Calc 79.65 Est GFR (MDRD) Non-Af 92 BUN/Creatinine Ratio 26.4 H Glucose 140 H Calcium 8.9 Urine Color Red Urine Clarity Turbid Urine pH 8.0 Ur Specific [place] 1.015 Urine Protein 100 H Urine Glucose (UA) Normal Urine Ketones Negative Urine Occult Blood 250 H Urine Nitrite Negative Urine Bilirubin Negative Urine Urobilinogen Normal Ur Leukocyte Esterase 100 H Urine RBC > 100 SEEN Urine WBC 50-100 SEEN Ur Squamous Epith Cells 0 SEEN Triple Phos Crystals 1+ Urine Bacteria 4+ Urine Mucus 0 SEEN Radiography Diagnostic Testing: Clinical Impression(s) from Imaging Studies Abdomen/Pelvis CT 08/15/25 22:15 IMPRESSION: Right distal ureteral calculus measuring 2 mm with moderate upstream hydroureteronephrosis. Additional small bilateral nonobstructive renal calculi. Ill-defined hyperdensity in the urinary bladder, possibly retained contrast or calcifications; correlation with urinalysis and recent imaging recommended. Small left pleural effusion. Postoperative changes of lumbar fusion and laminectomies. Moderate atherosclerosis. Reading Location: [address] Discharge Plan Triage Chief Complaint: Complaint ED Provider: Hossein Dunbar Dx/Rx/DC Orders Prescriptions: No Action calcium carbonate-vitamin D3 [Oyster Shell Calcium-Vit D3] 500 mg-5 mcg (200 unit) tablet 1 tab PO DAILY carvedilol 3.125 mg tablet 3.125 mg PO BID cholecalciferol (vitamin D3) 125 mcg (5,000 unit) capsule 125 mcg PO DAILY lisinopril 10 mg tablet 10 mg PO DAILY simvastatin 20 mg tablet 20 mg PO QPM Xtandi 40 mg capsule 160 mg PO QHS zinc sulfate [Orazinc] 50 mg zinc (220 mg) capsule 50 mg PO DAILY ascorbic acid (vitamin C) 500 mg capsule 500 mg PO DAILY aspirin 81 mg capsule 81 mg PO DAILY tamsulosin 0.4 mg Capsule 0.4 mg PO 4X/DAY Primary Care Provider: Jeramie Cervantes Referrals: Jeramie Cervantes MD [Primary Care Provider, Family Practice] Print Language: Khmer
--- NOTE | 2025-08-15 22:15 | CT_ITS ---
PROCEDURE: ABDOMEN/PELVIS WITHOUT CONT 08/15/2025 REASON FOR EXAM: HEMATURIA, KNOWN PROSTATE CANCER TECHNIQUE: Procedure Code: CTABDPEL Modality: CT Procedure: ABDOMEN/PELVIS WITHOUT CONT Noncontrast technique limits evaluation of the abdominal and pelvic viscera. Coronal and Sagittal reconstruction series were provided. One or more dose reduction techniques were used (e.g., Automated exposure control, adjustment of the mA and/or kV according to patient size, use of iterative reconstruction technique). FINDINGS: Small left pleural effusion. Coronary artery calcifications are present. Bilateral gynecomastia. L4-5 posterior fusion. L3, L4, and L5 laminectomies. Degenerative changes of the non fused levels. Moderate atherosclerosis. No suspicious lymphadenopathy. The liver is unremarkable. The gallbladder, pancreas, spleen, and adrenals unremarkable. Right kidney simple cyst. Left kidney subcentimeter hypodense lesion that is too small to characterize. Right distal ureter 2 mm calculus with moderate upstream hydroureteronephrosis. Additional small bilateral nonobstructive renal calculi. Ill-defined hyperdensity within the the urinary bladder which is suboptimally assessed due to collapsed around a Freitas catheter. This may represent retained contrast if there was recent contrast administration or ill-defined calcifications. Normal caliber large and small bowel without surrounding inflammatory changes. CT/Abdomen/Pelvis without Cont IMPRESSION: Right distal ureteral calculus measuring 2 mm with moderate upstream hydrourete ronephrosis. Additional small bilateral nonobstructive renal calculi. Ill-defined hyperdensity in the urinary bladder, possibly retained contrast or calcifications; correlation with urinalysis and recent imaging recommended. Small left pleural effusion. Postoperative changes of lumbar fusion and laminectomies. Moderate atherosclerosis. Reading Location: [id number]
[2025-08-15 22:26] LABS: Mucous, Urine 0 SEEN /hpf (<or=2+); Squamous Epithelial Cells - UA 0 SEEN /hpf (0-5)
[2025-08-15 22:31] LABS: Hematocrit 42.3 % (40-54); Hemoglobin 14.0 g/dL (13.0-16.5); Immature Granulocytes Count 0.060 X10^3/uL (0.0-0.0); Mean Corp Hgb Conc 33.1 g/dL (32-36); Mean Corpuscular Volume 100.5 fL (80-94); Mean Platelet Vol. 10.3 fl (6.2-12.0); NRBC Flagged by Analyzer 0 % (0-5); Platelet Count 225 K/mm3 (150-450); RBC Distribution Width CV 13.3 % (11.6-14.6); RBC Distribution Width SD 49.1 fl (35.1-43.9); Red Blood Count 4.21 M/mm3 (4.6-6.2); White Blood Count 16.3 K/mm3 (4.4-11.0)
--- OUTSIDE RECORDS SUMMARY | 2025-08-15 22:31 | XMS RPT_ITS | CCD ---
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 Name Role Phone MARIAELENAJUANJO MCGARRY Unavailable Unavailable JERAMIE CHING Unavailable Unavailable Jeramie Ching Primary Care Provider Jeramie Ching Primary Care Provider Jeramie Ching Primary Care Provider Jeramie Ching Primary Care Provider Jeramie Ching MD Primary Care Provider Jeramie Ching MD Primary Care Provider Jeramie Ching MD Primary Care Provider Jeramie Ching MD Primary Care Provider Jeramie Ching Primary Care Provider PROVIDER, UNKNOWN Referring Unavailable Jeramie Ching Primary Care Unavailable KRISTEN URIAS Attending Unavailable PROVIDER, UNKNOWN Referring Unavailable Jeramie Ching Primary Care Unavailable KRISTEN URIAS Attending Unavailable Jeramie Ching Primary Care Unavailable KRISTEN URIAS Attending Unavailable PROVIDER, UNKNOWN Referring Unavailable PROVIDER, UNKNOWN Referring Unavailable Jeramie Ching Primary Care Unavailable KRISTEN URIAS Attending Unavailable Jeramie Ching MD Primary Care Provider Kristen Urias MD Unavailable Jeramie Ching MD Primary Care Provider Kristen Urias MD Unavailable Jeramie Ching MD Primary Care Provider Dakota Chavez MD, Lukas Unavailable Jeramie Ching MD Primary Care Provider Estrada PATEL Regina Unavailable Unavailable Shalom Hussein Referring Unavailable Arm, [place] Primary Care Unavailable Shalom Hussein Attending Unavailable [facility] Primary Care Unavailable Prasanth, Keaton Chi Admitting Unavailable Prasanth, Keaton Chi Attending Unavailable Shalom Hussein Consulting Unavailable [facility], [place] Primary Care Unavailable Prasanth, Keaton Chi Attending Unavailable Prasanth, Keaton Chi Referring Unavailable Dakota Chavez MD, Lukas Unavailable Jose Still MD Unavailable Jeramie Ching MD Primary Care Provider Jose Still MD Unavailable Jeramie Ching MD Primary Care Provider ADONAY, KRISTEN Attending Unavailable ARM, MCNABB Primary Care Unavailable ADONAY, KRISTEN Attending Unavailable [facility], MCNABB Primary Care Unavailable ADONAY, KRISTEN Attending Unavailable [facility], MCNABB Primary Care Unavailable ADONAY, KRISTEN Attending Unavailable ADONAY, KRISTEN Referring Unavailable [facility], MCNABB Primary Care Unavailable ADONAY, KRISTEN Admitting Unavailable ADONAY, KRISTEN Attending Unavailable [facility], MCNABB Primary Care Unavailable ADONAY, KRISTEN Referring Unavailable ADONAY, KRISTEN Attending Unavailable ADONAY, KRISTEN Referring Unavailable [facility] Primary Care Unavailable ADONAY, KRISTEN Attending Unavailable ADONAY, KRISTEN Referring Unavailable ARM, MCNABB Primary Care Unavailable ADONAY, KRISTEN Attending Unavailable ADONAY, KRISTEN Referring Unavailable ARM, MCNABB Primary Care Unavailable ARM, MCNABB Attending Unavailable [facility], MCNABB Primary Care Unavailable ADONAY, KRISTEN Attending Unavailable [facility], MCNABB Primary Care Unavailable ADONAY, KRISTEN Attending Unavailable ADONAY, KRISTEN Referring Unavailable [facility], MCNABB Primary Care Unavailable ADONAY, KRISTEN Attending Unavailable ARM, MCNABB Primary Care Unavailable ARM, MCNABB Attending Unavailable [facility], MCNABB Primary Care Unavailable [facility], MCNABB Attending Unavailable ARM, MCNABB Primary Care Unavailable ADONAY, KRISTEN Attending Unavailable [facility], MCNABB Primary Care Unavailable ADONAY, KRISTEN Attending Unavailable [facility], MCNABB Primary Care Unavailable Allergies Allergy Classification Reported Allergen(s) Allergy Type Date of Onset Reaction(s) Facility Unclassified (7 sources) Seasonal allergy Propensity to adverse reactions to substance 04-24-2021 [facility] (20 sources) beta Sitosterol / ZINC CITRATE Drug Allergy 04-24-2021 [facility] Medications Current Medications Medication Drug Class(es) Dates Sig (Normalized) Sig (Original) abiraterone acetate 250 mg oral tablet (20 sources) Cytochrome P450 17A1 Inhibitor Start: 03-05-2025 End: 06-28-2025 take 4 tablets by mouth once daily abiraterone (Zytiga) 250 MG chemo tablet Indications: Malignant neoplasm metastatic to bone (HCC) Take 4 tablets (1,000 mg total) by mouth daily. Swallow whole. Do not eat 1 hr before or 2 hrs after. 120 tablet 3 07/31/2025 4:26 PM EDT 06/28/2025 Active acetaminophen 325 mg / HYDROcodone bitartrate 5 mg oral tablet (2 sources) Opioid Agonist Start: 07-05-2019 End: 07-12-2019 take 1-2 tablets by mouth every four hours at mealtime as needed for pain HYDROcodone-aceta minophen (NORCO) 5-325 MG per tablet Indications: Arthritis of left knee Take 1-2 tablets by mouth every 4 hours as needed for Pain for up to 7 days. Take with food and stool softener. Stop taking if you do not have pain 42 tablet 0 07/05/2019 07/12/2019 Active Start: 07-05-2019 HYDROcodone-ac etaminophen (NORCO) 5-325 MG per tablet 1 tablet amoxicillin 500 mg oral capsule (3 sources) Penicillin-class Antibacterial Start: 12-19-2020 amoxicillin (AMOXIL) 500 MG capsule ascorbic acid 500 mg chewable tablet (20 sources) Vitamin C Start: 06-21-2024 End: 06-24-2025 take 1 tablet by mouth once daily ascorbic acid (Vitamin C) 500 MG tablet Take 1 tablet (500 mg) by mouth daily. 30 tablet 11 06/24/2024 06/24/2025 Active calcium carbonate 1250 mg / cholecalciferol 200 unt oral tablet (20 sources) Vitamin D Start: 05-05-2024 End: 06-24-2024 take 1 tablet by mouth once daily Calcium Carb-Cholecalcif maggy 500-5 MG-MCG tablet tablet Take 1 tablet by mouth daily. 90 tablet 3 05/05/2024 Active Start: 02-26-2020 End: 02-15-2024 take 1 tablet by mouth once daily Calcium Carb-Cholecalciferol (Oyster Shell Calcium w/D) 500-200 MG-UNIT tablet Take 1 tablet by mouth daily. 0 08/15/2022 Active Comment on above: Take 1 tablet by mike th once daily. 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 1 ml diphenhydrAMINE hydrochloride 50 mg/ml cartridge (1 source) Histamine-1 Receptor Antagonist Start: 9 12.5 mg, Intravenous, EVERY 6 HOURS PRN, Itching, Sleep, Starting Wed07/05/19 at 1119 docusate sodium 100 mg oral capsule (5 sources) Start: 9 take 100 mg by mouth twice daily 100 mg, Oral, 2 TIMES DAILY, First dose on Wed07/05/19 at 2100 Do not crush or break Post-op Start: 07-05-2019 take 2 capsules by out twice daily as needed for pain docusate sodium (COLACE) 50 MG capsule Take 2 capsules by mouth 2 times daily 2x daily as needed for constipation while on pain meds 60 capsule 0 07/05/2019 Active doxycycline monohydrate 100 mg oral capsule (6 sources) Tetracycline-class Drug Start: 07-03-2025 End: 07-13-2025 doxycycline (Monodox) 100 MG capsule Indications: Ingrown nail of great toe of right foot Take 1 capsule (100 mg) by mouth 2 times daily for 10 days. Take with at least 8 ounces (large glass) of water, do not lie down for 30 minutes after 20 capsule 07/03/2025 07/13/2025 Active Start: 05-31-2024 End: 06-10-2024 take 1 tablet by mouth twice daily doxycycline (Vibra-Tabs) 100 MG tablet Indications: Bronchitis Take 1 tablet (100 mg) by mouth 2 times daily for 10 days. Take with a full glass of water and do not lie down for at least 30 minutes after. 20 tablet 05/31/2024 06/10/2024 Active Start: 12-22-2023 End: 01-01-2024 doxycycline (Monodox) 100 MG capsule Indications: Acute bacterial bronchitis Take 1 capsule (100 mg) by mouth 2 times daily for 10 days. Take with at least 8 ounces (large glass) of water, do not lie down for 30 minutes after 20 capsule 0 12/22/2023 01/01/2024 Active enzalutamide 40 mg oral capsule (20 sources) Androgen Receptor Inhibitor Start: 06-20-2024 End: 06-24-2024 160 mg, Oral, Nightly, First dose (after last modification) on Wed06/20/24 at 2100, Patient supplied medication Verified by pharmacy, 06-20-24, Guille Cortez, [facility] HAZARDOUS - Handle with care Start: 12-11-2021 End: 01-25-2025 take 4 capsules by mouth once daily in the evening enzalutamide (Xtandi) 40 MG chemo capsule Indications: Prostate cancer (HCC) TAKE 4 CAPSULES BY MOUTH DAILY 120 capsule 3 02/28/2025 4:52 PM EDT 01/25/2025 Active Start: 08-13-2021 take 4 capsules by m outh once daily enzalutamide (XTANDI) 40 MG capsule Take 4 capsules by mouth daily 120 capsule 3 08/13/2021 Active Start: 04-17-2021 take 160 mg by mouth once christopher y enzalutamide 40 mg Take 160 mg by mouth once daily. 0 04/17/2021 Active Start: 04-17-2021 take 4 capsules by m outh once daily enzalutamide (XTANDI) 40 MG capsule Take 4 capsules by mouth daily 120 capsule 3 04/17/2021 Active Comment on above: Take 160 mg by mouth once daily. HYDROmorphone (DILAUDID) injection 0.25 mg (1 source) Start: 07-05-20 HYDROmorphone (DILAUDID) injection 0.25 mg levoFLOXacin 500 mg oral tablet (2 sources) Quinolone Antimicrobial Start: 10-19-20 19 levofloxacin (LEVAQUIN) 500 MG tablet Indications: Elevated PSA Take 1 hour before procedure 1 tablet 0 10/19/2019 Active lisinopril 10 mg oral tablet (20 sources) Angiotensin Converting Enzyme Inhibitor Start: 07-21-20 21 End: 10-03-20 24 take 1 tablet by mouth once daily lisinopril 10 MG tablet Indications: Essential hypertension Take 1 tablet (10 mg) by mouth daily. 90 tablet 3 10/03/2024 Active Start: 07-18-2018 End: 07-29-2020 take 1 tablet by mouth once daily lisinopril (PRINIVIL;ZESTRIL) 10 MG tablet Indications: Essential hypertension Take 1 tablet by mouth daily 90 tablet 3 07/18/2018 Active Comment on above: TAKE 1 TABLET BY MIKE TH EVERY DAY Take 1 tablet by mike th once daily. 2 ml ondansetron 2 mg/ml injection (1 source) Serotonin-3 Receptor Antagonist Start: 9 4 mg, Intravenous, EVERY 6 HOURS PRN, Nausea, Vomiting, Starting 07/05/19 at 1119, Post-op polyethylene glycol 3350 36775 mg powder for oral solution (8 sources) Osmotic Laxative Start: 4 End: 4 take 17 g by mouth every twenty-four hours as needed polyethylene glycol, PEG, 3350 (Miralax) 17 g packet Take 17 g by mouth Daily as needed (constipation) for up to 7 days. 7 packet 06/23/2024 06/30/2024 Active Start: 07-05-2019 take 1 dose by mouth once daily as needed for constipation polyethylene glycol (MIRALAX) packet Take 17 g by mouth daily as needed for Constipation Take one packet a day as needed for constipation 14 each 0 07/05/2019 Active predniSONE 5 mg oral tablet (20 sources) Start: 03-05-2025 End: 06-28-2025 take 1 tablet by mouth twice daily in the evening predniSONE (Deltasone) 5 MG tablet Indications: Malignant neoplasm metastatic to bone (HCC) Take 1 tablet (5 mg) by mouth 2 times daily. 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 tamsulosin hydrochloride 0.4 mg oral capsule (20 sources) alpha-Adrenergic Seferino Start: 08-18-2024 take 1 capsule by mouth every twenty-four hours in the morning tamsulosin (Flomax) 0.4 MG 24 hr capsule Indications: Elevated prostate specific antigen (PSA) TAKE 1 CAPSULE (0.4 MG) BY MOUTH IN THE MORNING AND 1 CAPSULE (0.4 MG) IN THE EVENING. 180 capsule 3 08/18/2024 Active Start: 06-20-2024 End: 06-21-2024 take 0.4 mg by mouth once daily 0.4 mg, Oral, Nightly, First dose on Wed06/20/24 at 2100, Do not crush, chew, or split. Start: 06-23-2019 End: 09-21-2019 take 1 capsule by mouth once daily tamsulosin (FLOMAX) 0.4 MG capsule Indications: Disorder of prostate Take 1 capsule by mouth daily 90 capsule 3 06/23/2019 09/21/2019 Active Start: 01-02-2016 End: 08-18-2024 take 0.4 mg by mouth twice daily 0.4 mg, Oral, 2 times daily, First dose (after last modification) on Wed06/21/24 at 2100, Do not crush, chew, or split. Start: 01-02-2016 End: 05-31-2024 take 1 capsule by mouth every twenty-four hours in the morning tamsulosin (Flomax) 0.4 MG 24 hr capsule Indications: Elevated PSA Take 1 capsule (0.4 mg) by mouth in the morning and 1 capsule (0.4 mg) in the evening. 180 capsule 3 05/31/2023 05/31/2024 Active Comment on above: Take 0.4 mg by mouth twice daily. traMADol hydrochloride 50 mg oral tablet (2 sources) Opioid Agonist Start: 07-05-2019 End: 07-12-2019 take 1 tablet by mouth every six hours as needed for pain and pain, then take 1 tablet by mouth every six hours as needed for pain and pain traMADol (ULTRAM) 50 MG tablet Indications: Arthritis of left knee Take 1 tablet by mouth every 6 hours as needed for Pain for up to 7 days. Take one tab every 6 hours as needed for pain 42 tablet 0 07/05/2019 07/12/2019 Active zinc sulfate 220 mg oral capsule (20 sources) Start: 06-21-2024 End: 06-24-2025 take 1 capsule by mouth once daily zinc sulfate (Zincate) 220 (50 Zn) MG capsule Take 1 capsule (50 mg of elemental zinc) by mouth daily. 30 capsule 11 06/24/2024 06/24/2025 Active Completed/Discontinued Medications Medication Drug Class(es) Dates Sig (Normalized) Sig (Original) Acetaminophen (3 sources) Start: 06-20-2024 End: 06-24-2024 take 1 tablet by mouth every six hours as needed for pain and fever acetaminophen (Tylenol) tablet 650 mg Start: 07-05-2019 End: 07-05-2019 acetaminophen (TYLENOL) tabl et 1,000 mg acetaminophen 325 mg / oxyCODONE hydrochloride 5 mg oral tablet (3 sources) Opioid Agonist Start: 12-02-2021 End: 09-24-2022 take 1 tablet by mouth every six hours as needed oxyCODONE-acetaminophen (Percocet) 5-325 MG tablet Take 1 tablet by mouth every 6 hours as needed. 0 12/02/2021 09/24/2022 Discontinued (Therapy completed) [id number] 200 actuat albuterol 0.09 mg/actuat metered dose inhaler (20 sources) beta2-Adrene rgic Agonist Start: 06-20-2024 End: 06-24-2024 Start: 05-31-2024 End: 06-13-2025 take 2 puff(s) by inhalation every four hours as needed for wheezing albuterol (Ventolin HFA) 108 (90 Base) MCG/ACT inhaler Indications: Bronchitis Inhale 2 puffs every 4 hours as needed for wheezing or shortness of breath. 8 g 06/13/2024 04/09/2025 Discontinued aspirin 81 mg delayed release oral tablet (20 sources) Platelet Aggregation Inhibitor, Nonsteroidal Anti-inflammatory Drug Start: 06-20-2024 End: 06-24-2024 take 81 mg by mouth once daily 81 mg, Oral, Daily, First dose on Wed06/20/24 at 1335, Do not crush, chew, or split. Start: 07-05-2019 End: 08-04-2019 aspirin 325 MG EC tablet Omar e 1 tablet by mouth 2 times daily Take 2 times a day with food for 30 days. This is for blood clot prevention. 60 tablet 0 07/05/2019 Active take 1 tablet by mike th once daily aspirin 81 MG tablet Take 81 mg by mouth daily 0 Active End: 07-05-2019 take 1 tablet by mouth once daily aspirin 81 MG chewable tablet Take 81 mg by mouth daily 0 07/05/2019 Discontinued (Stop Taking at Discharge) Comment on above: Take 81 mg by mouth once daily. aspirin 81 mg / calcium carbonate 777 mg oral tablet (5 sources) Platelet Aggregation Inhibitor, Nonsteroidal Anti-inflammatory Drug take 1 tablet by mouth once daily aspirin-calcium carbonate 81 mg-300 mg calcium(777 mg) tab Take 81 mg by mouth once daily. 0 Active Comment on above: Take 81 mg by mouth once daily. atorvastatin 10 mg oral tablet (2 sources) HMG-CoA Reductase Inhibitor Start: 4 End: 4 20 mg, Oral, Nightly, First dose on Wed06/20/24 at 2100, Substituted for simvastatin (Zocor). barium sulfate (READI-CAT 2) 2 % suspension 900 mL (1 source) Start: 0 End: 0 barium sulfate (READI-CAT 2) 2 % suspension 900 mL benzonatate 100 mg oral capsule (9 sources) Non-narcotic Antitussive Start: 4 End: 4 Start: 12-22-2023 End: 01-21-2024 take 1 capsule by mouth three times daily as needed for cough benzonatate (Tessalon) 200 MG capsule Indications: Acute bacterial bronchitis Take 1 capsule (200 mg) by mouth 3 times daily as needed for cough. Do not crush or chew. 42 capsule 0 12/22/2023 01/21/2024 Active bicalutamide 50 mg oral tablet (2 sources) Androgen Receptor Inhibitor Start: 02-21-2020 take 1 tablet by mouth once daily bicalutamide (CASODEX) 50 mg tablet Take 50 mg by mouth once daily. 0 02/21/2020 Active Comment on above: Take 50 mg by mouth once daily. calcium chloride 0.0014 meq/ml / potassium chloride 0.004 meq/ml / sodium chloride 0.103 meq/ml / sodium lactate 0.028 meq/ml injectable solution (1 source) Start: 07-05-2019 End: 07-05-2019 lactated ringers infusion ceFAZolin 2000 mg injection (2 sources) Cephalosporin Antibacterial Start: 07-05-2019 End: 07-05-2019 2 g, Intravenous, EVERY 8 HOURS, 2 doses, First dose on Wed07/05/19 at 1530, Last dose on Wed07/05/19 at 2330, Post-op Start: 07-05-2019 End: 07-05-2019 ceFAZolin (ANCEF) 2 g in dex trose 4 % 100 mL IVPB (premix) cholecalciferol 0.025 mg oral tablet (20 sources) Vitamin D Start: 06-20-2024 End: 06-24-2024 take 5000 [IU] by mouth once daily 5,000 Units, Oral, Daily, First dose on Wed06/20/24 at 1335 take 1 capsule by mouth in the m orning cholecalciferol (Vitamin D-3) 125 MCG (5000 UT) capsule Take 5,000 Units by mouth in the morning. Active take 1 capsule by mouth once melissa ly Cholecalciferol, Vitamin D3, 5,000 unit cap Take 5,000 Units by mouth once daily. 0 Active Cholecalciferol (VITAMIN D3) 5000 units TABS Take by mouth 0 Active Comment on above: Take 5,000 Units by mouth once daily. collagenase 0.25 unt/mg topical ointment (17 sources) Collagen-specific Enzyme Start: 06-23-2024 End: 09-21-2024 collagenase 250 UNIT/GM ointment Apply topically daily. 30 g 1 06/23/2024 09/21/2024 Start: 06-21-2024 End: 06-24-2024 Topical, Daily, First dose o n Wed06/21/24 at 1500, Apply nickel thick to right and left buttock then apply saline moist gauze and adhesive bordered foam dressing . Change daily . dexamethasone phosphate 10 mg/ml injectable solution (1 source) Corticosteroid Start: 07-05-2019 End: 07-05-2019 10 mg, Intravenous, EVERY 8 HOURS, First dose on Wed07/05/19 at 1530, For 2 doses, Post-op 0.4 ml enoxaparin sodium 100 mg/ml prefilled syringe (2 sources) Low Molecular Weight Heparin Start: 06-20-2024 End: 06-24-2024 inject 40 mg by subcutaneous injection every twenty-four hours 40 mg, SubCUTAneous, Every 24 hours scheduled (Daily), First dose on Wed06/20/24 at 1335, Indication of Use: Prophylaxis-DVT/PE, Indications: Prophylaxis of Venous Thromboembolism famotidine 20 mg oral tablet (1 source) Histamine-2 Receptor Antagonist Start: 07-05-2019 End: 07-05-2019 famotidine (PEPCID) tablet 20 mg Start: 07-05-2019 End: 07-05-2019 famotidine (PEPCID) tablet 2 0 mg 250 ml glucose 50 mg/ml / sodium chloride 9 mg/ml injection (2 sources) Start: 06-20-2024 End: 06-21-2024 take 75 mL intravenously every hour 75 mL/hr, IntraVENous, Continuous, Starting on Wed06/20/24 at 1335 goserelin 10.8 mg drug implant (20 sources) Gonadotropin Releasing Hormone Receptor Agonist Start: 08-02-2025 End: 08-02-2025 10.8 mg, SubCUTAneous, Once, On Giovanna 08/02/25 at 1230, For 1 dose, Do not attempt to aspirate prior to injection. Hazardous Medication -- Refer to facility policy for handling and disposal. Administer implant by inserting needle at a 30 to 45 degree angle into the anterior abdominal wall below the navel line. Use caution while injecting goserelin into the anterior abdominal wall (due to the proximity of underlying inferior epigastric artery and its branches). Goserelin is an implant; therefore, do not attempt to eliminate air bubbles prior to injection (may displace implant). Do not attempt to aspirate prior to injection; if a large vessel is penetrated, blood will be visualized in the syringe chamber (if vessel is penetrated, withdraw needle and inject elsewhere with a new syringe). Do not penetrate into muscle or peritoneum. Implant may be detected by ultrasound if removal is required. Monitor for signs/symptoms of abdominal hemorrhage. Use extra care when administering goserelin to patients with a low BMI and/or to patients receiving full dose anticoagulation. HAZARDOUS - Handle with care Start: 05-10-2025 End: 05-10-2025 10.8 mg, SubCUTAneous, Once, On Giovanna 05/10/25 at 1115, For 1 dose, Do not attempt to aspirate prior to injection. Hazardous Medication -- Refer to facility policy for handling and disposal. Administer implant by inserting needle at a 30 to 45 degree angle into the anterior abdominal wall below the navel line. Use caution while injecting goserelin into the anterior abdominal wall (due to the proximity of underlying inferior epigastric artery and its branches). Goserelin is an implant; therefore, do not attempt to eliminate air bubbles prior to injection (may displace implant). Do not attempt to aspirate prior to injection; if a large vessel is penetrated, blood will be visualized in the syringe chamber (if vessel is penetrated, withdraw needle and inject elsewhere with a new syringe). Do not penetrate into muscle or peritoneum. Implant may be detected by ultrasound if removal is required. Monitor for signs/symptoms of abdominal hemorrhage. Use extra care when administering goserelin to patients with a low BMI and/or to patients receiving full dose anticoagulation. HAZARDOUS - Handle with care Start: 02-13-2025 End: 02-13-2025 10.8 mg, SubCUTAneous, Once, On Wed02/13/25 at 1130, For 1 dose, Do not attempt to aspirate prior to injection. Hazardous Medication -- Refer to facility policy for handling and disposal. Administer implant by inserting needle at a 30 to 45 degree angle into the anterior abdominal wall below the navel line. Use caution while injecting goserelin into the anterior abdominal wall (due to the proximity of underlying inferior epigastric artery and its branches). Goserelin is an implant; therefore, do not attempt to eliminate air bubbles prior to injection (may displace implant). Do not attempt to aspirate prior to injection; if a large vessel is penetrated, blood will be visualized in the syringe chamber (if vessel is penetrated, withdraw needle and inject elsewhere with a new syringe). Do not penetrate into muscle or peritoneum. Implant may be detected by ultrasound if removal is required. Monitor for signs/symptoms of abdominal hemorrhage. Use extra care when administering goserelin to patients with a low BMI and/or to patients receiving full dose anticoagulation. HAZARDOUS - Handle with care Start: 11-21-2024 End: 11-21-2024 10.8 mg, SubCUTAneous, Once, On Wed11/21/24 at 1200, For 1 dose, Do not attempt to aspirate prior to injection. Hazardous Medication -- Refer to facility policy for handling and disposal. Administer implant by inserting needle at a 30 to 45 degree angle into the anterior abdominal wall below the navel line. Use caution while injecting goserelin into the anterior abdominal wall (due to the proximity of underlying inferior epigastric artery and its branches). Goserelin is an implant; therefore, do not attempt to eliminate air bubbles prior to injection (may displace implant). Do not attempt to aspirate prior to injection; if a large vessel is penetrated, blood will be visualized in the syringe chamber (if vessel is penetrated, withdraw needle and inject elsewhere with a new syringe). Do not penetrate into muscle or peritoneum. Implant may be detected by ultrasound if removal is required. Monitor for signs/symptoms of abdominal hemorrhage. Use extra care when administering goserelin to patients with a low BMI and/or to patients receiving full dose anticoagulation. HAZARDOUS - Handle with care Start: 08-29-2024 End: 08-29-2024 10.8 mg, SubCUTAneous, Once, On Wed08/29/24 at 1145, For 1 dose, Do not attempt to aspirate prior to injection. Hazardous Medication -- Refer to facility policy for handling and disposal. Administer implant by inserting needle at a 30 to 45 degree angle into the anterior abdominal wall below the navel line. Use caution while injecting goserelin into the anterior abdominal wall (due to the proximity of underlying inferior epigastric artery and its branches). Goserelin is an implant; therefore, do not attempt to eliminate air bubbles prior to injection (may displace implant). Do not attempt to aspirate prior to injection; if a large vessel is penetrated, blood will be visualized in the syringe chamber (if vessel is penetrated, withdraw needle and inject elsewhere with a new syringe). Do not penetrate into muscle or peritoneum. Implant may be detected by ultrasound if removal is required. Monitor for signs/symptoms of abdominal hemorrhage. Use extra care when administering goserelin to patients with a low BMI and/or to patients receiving full dose anticoagulation. HAZARDOUS - Handle with care Start: 06-06-2024 End: 06-06-2024 10.8 mg, SubCUTAneous, Once, On Wed06/06/24 at 1345, For 1 dose, Do not attempt to aspirate prior to injection. Hazardous Medication -- Refer to facility policy for handling and disposal. Administer implant by inserting needle at a 30 to 45 degree angle into the anterior abdominal wall below the navel line. Use caution while injecting goserelin into the anterior abdominal wall (due to the proximity of underlying inferior epigastric artery and its branches). Goserelin is an implant; therefore, do not attempt to eliminate air bubbles prior to injection (may displace implant). Do not attempt to aspirate prior to injection; if a large vessel is penetrated, blood will be visualized in the syringe chamber (if vessel is penetrated, withdraw needle and inject elsewhere with a new syringe). Do not penetrate into muscle or peritoneum. Implant may be detected by ultrasound if removal is required. Monitor for signs/symptoms of abdominal hemorrhage. Use extra care when administering goserelin to patients with a low BMI and/or to patients receiving full dose anticoagulation. HAZARDOUS - Handle with care Start: 03-07-2024 End: 03-07-2024 goserelin (Zoladex) injectio n 10.8 mg Start: 12-14-2023 End: 12-14-2023 goserelin (Zoladex) injectio n 10.8 mg Start: 09-21-2023 End: 09-21-2023 goserelin (Zoladex) injectio n 10.8 mg Start: 03-25-2023 End: 03-25-2023 goserelin (Zoladex) injectio n 10.8 mg Start: 12-23-2022 End: 12-23-2022 goserelin (Zoladex) injectio n 10.8 mg Start: 09-24-2022 End: 09-24-2022 goserelin (Zoladex) injectio n 10.8 mg Start: 06-25-2022 End: 06-25-2022 goserelin (ZOLADEX) injectio n 10.8 mg Start: 04-02-2022 End: 04-02-2022 goserelin (ZOLADEX) injectio n 10.8 mg Start: 01-08-2022 End: 01-08-2022 goserelin (ZOLADEX) injectio n 10.8 mg Start: 07-17-2021 End: 07-17-2021 goserelin (ZOLADEX) injectio n 10.8 mg Start: 04-24-2021 End: 04-24-2021 goserelin (ZOLADEX) injectio n 10.8 mg Start: 12-30-2020 End: 12-30-2020 goserelin (ZOLADEX) injectio n 10.8 mg ibuprofen 600 mg oral tablet (20 sources) Nonsteroidal Anti-inflammatory Drug Start: 04-22-2022 End: 06-20-2024 take 1 tablet by mouth three times daily as needed ibuprofen 600 MG tablet Take 1 tablet by mouth 3 times daily as needed. 04/22/2022 06/20/2024 Discontinued (Side effects) Start: 12-02-2021 take 1 tablet by mike th every six hours as needed for pain ibuprofen (ADVIL;MOTRIN) 600 MG tablet Take 1 tablet by mouth every 6 hours as needed for Pain 40 tablet 0 12/02/2021 Active iopamidol (ISOVUE-370) 76 % injection 75 mL (3 sources) Start: 08-15-2021 End: 08-15-2021 iopamidol (ISOVUE-370) 76 % injection 75 mL Start: 05-24-2020 End: 05-24-2020 iopamidol (ISOVUE-370) 76 % injection 75 mL Start: 11-29-2019 End: 11-29-2019 iopamidol (ISOVUE-370) 76 % injection 75 mL 1 ml ketorolac tromethamine 15 mg/ml cartridge (1 source) Nonsteroidal Anti-inflammatory Drug, Cyclooxygenase Inhibitor Start: 07-05-2019 End: 07-05-2019 15 mg, Intravenous, EVERY 6 HOURS, First dose on Wed07/05/19 at 1200, For 2 doses loperamide hydrochloride 2 mg oral capsule (2 sources) Opioid Agonist Start: 06-20-2024 End: 06-24-2024 take 2 mg by mouth four times daily as needed for diarrhea 2 mg, Oral, 4 times daily PRN, diarrhea, Starting on Wed06/20/24 at 1334, After each loose stool ondansetron ODT (Zofran-ODT) disintegrating tablet 4 mg (2 sources) Start: 06-20-2024 End: 06-24-2024 take 1 tablet by mouth every eight hours as needed for nausea and vomiting ondansetron ODT (Zofran-ODT) disintegrating tablet 4 mg 1000 ml sodium chloride 9 mg/ml injection (12 sources) Start: 02-13-2025 End: 02-13-2025 take 100 mL intravenously every hour, then take 20 mL intravenously every hour 5-250 mL/hr, IntraVENous, Once PRN, KVO, Starting on Wed02/13/25 at 1143, If patient receiving piggyback infusions and maintenance fluids are not ordered OR KVO fluids to protect IV site/ prevent frequent line interruptions/ long duration For piggyback infusion, administer at same rate as piggyback for a total of 25 mL. Enter 25 mL into dose field and piggyback rate into rate field of order. If piggyback is infusing at a rate less than 100 mL/hr, enter 25 mL into dose field and 100 mL/hr into rate field of order. For KVO fluids, enter rate of 20 mL/hr or less into rate field of order. Start: 12-14-2023 End: 12-14-2023 sodium chloride 0.9 % infusi on Start: 09-21-2023 End: 09-21-2023 sodium chloride 0.9 % infusi on Start: 09-24-2022 End: 09-24-2022 sodium chloride 0.9 % infusi on Start: 06-25-2022 End: 06-25-2022 0.9 % sodium chloride infusi on Start: 04-02-2022 End: 04-02-2022 0.9 % sodium chloride infusi on Start: 01-08-2022 End: 01-08-2022 0.9 % sodium chloride infusi on Start: 07-05-2019 Intravenous, a t 125 mL/hr, CONTINUOUS, Starting Wed07/05/19 at 1145, Post-op Start: 07-05-2019 10 mL, Intrave nous, EVERY 12 HOURS SCHEDULED (2 times per day), First dose on Wed07/05/19 at 1145, Post-op Start: 07-05-2019 take 10 mL intravenous route o nce 10 mL, Intravenous, PRN, Line Care, Starting Wed07/05/19 at 1119 After every IV line use Post-op technetium Tc-99m medronate (Tc-MDP) radio-isotope injection 25 millicurie (2 sources) Start: 02-22-2025 End: 02-22-2025 25 millicurie, IntraVENous, Once, On Wed02/22/25 at 0900, For 1 dose 100 ml zoledronic acid 0.04 mg/ml injection (11 sources) Bisphosphonate Start: 08-02-2025 End: 08-02-2025 4 mg, IntraVENous, Administer over 20 Minutes, Once, On Giovanna 08/02/25 at 1230, For 1 dose Start: 05-10-2025 End: 05-10-2025 4 mg, IntraVENous, at 300 mL /hr, Administer over 20 Minutes, Once, On Giovanna 05/10/25 at 1215, For 1 dose Start: 02-13-2025 End: 02-13-2025 4 mg, IntraVENous, Administe r over 20 Minutes, Once, On Wed02/13/25 at 1200, For 1 dose Start: 11-21-2024 End: 11-21-2024 4 mg, IntraVENous, Administe r over 20 Minutes, Once, On Wed11/21/24 at 1215, For 1 dose Start: 08-29-2024 End: 08-29-2024 4 mg, IntraVENous, at 300 mL /hr, Administer over 20 Minutes, Once, On Wed08/29/24 at 1145, For 1 dose Start: 06-06-2024 End: 06-06-2024 4 mg, IntraVENous, at 300 mL /hr, Administer over 20 Minutes, Once, On Wed06/06/24 at 1345, For 1 dose Start: 03-07-2024 End: 03-07-2024 zoledronic acid (Zometa) IVP B 4 mg Start: 12-14-2023 End: 12-14-2023 zoledronic acid (Zometa) IVP B 4 mg Start: 09-21-2023 End: 09-21-2023 zoledronic acid (Zometa) IVP B 4 mg Start: 03-25-2023 End: 03-25-2023 zoledronic acid (Zometa) IVP B 4 mg zoledronic acid (ZOMETA) 4 m g in sodium chloride 0.9 % 100 mL IVPB (4 sources) Start: 06-25-2022 End: 06-25-2022 zoledronic acid (ZOMETA) 4 m g in sodium chloride 0.9 % 100 mL IVPB Start: 04-02-2022 End: 04-02-2022 zoledronic acid (ZOMETA) 4 m g in sodium chloride 0.9 % 100 mL IVPB Start: 01-08-2022 End: 01-08-2022 zoledronic acid (ZOMETA) 4 m g in sodium chloride 0.9 % 100 mL IVPB Start: 07-17-2021 End: 07-17-2021 zoledronic acid (ZOMETA) 4 m g in sodium chloride 0.9 % 100 mL IVPB zoledronic acid (Zometa) 4 m g in sodium chloride 0.9 % 100 mL IVPB (7 sources) Start: 12-23-2022 End: 12-23-2022 zoledronic acid (Zometa) 4 m g in sodium chloride 0.9 % 100 mL IVPB Start: 09-24-2022 End: 09-24-2022 zoledronic acid (Zometa) 4 m g in sodium chloride 0.9 % 100 mL IVPB Problems Active Problems Problem Classification Problem Date Documented Date Episodic/Chronic Acute bronchitis (1 source) Acute bacterial bronchitis; Translations: [Acute bronchitis due to other specified organisms] 12-22-2023 Episodic Cancer of prostate (20 sources) Malignant tumor of prostate; Translations: [Malignant neoplasm of prostate] Onset: 05-05-2017 11-22-2019 Chronic Chronic obstructive pulmonary disease and bronchiectasis (2 sources) Bronchitis; Translations: [Bronchitis, not specified as acute or chronic] 05-31-2024 Episodic Chronic ulcer of skin (3 sources) Pressure ulcer of right buttock, stage 3; Translations: [Pressure ulcer, buttock] Onset: 07-10-2024 06-21-2024 Chronic Coronary atherosclerosis and other heart disease (20 sources) Coronary arteriosclerosis in [place] artery; Translations: [Coronary arteriosclerosis] Onset: 07-18-2018 07-18-2018 Chronic Disorders of lipid metabolism (20 sources) Pure hypercholesterolemia; Translations: [Hyperlipidemia] Onset: 07-18-2018 07-18-2018 Chronic Essential hypertension (20 sources) Essential hypertension; Translations: [Hypertensive disorder] Onset: 07-18-2018 07-18-2018 Chronic Fever of unknown origin (1 source) Fever; Translations: [Fever, unspecified] 05-31-2024 Episodic Immunizations and screening for infectious disease (1 source) Needs influenza immunization; Translations: [Encounter for immunization] 07-20-2024 Episodic Malaise and fatigue (1 source) Physical deconditioning; Translations: [Other malaise] 07-20-2024 Episodic Occlusion or stenosis of precerebral arteries (20 sources) Occlusion and stenosis of bilateral carotid arteries; Translations: [Bilateral stenosis of carotid arteries] Onset: 05-18-2017 05-10-2018 Chronic Other diseases of kidney and ureters (1 source) Acquired renal cystic disease; Translations: [Cyst of kidney, acquired] Episodic Other diseases of kidney and ureters (1 source) Complex renal cyst; Translations: [Cyst of kidney, acquired] Episodic Other nervous system disorders (20 sources) Polyneuropathy due to drug; Translations: [Drug-induced polyneuropathy] Onset: 07-18-2018 07-18-2018 Chronic Other nervous system disorders (2 sources) Drug-induced polyneuropathy; 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)] Onset: 08-10-2022 Chronic Other non-traumatic joint disorders (20 sources) Arthritis of left knee; Translations: [Unilateral primary osteoarthritis, left knee] Onset: 07-05-2019 07-06-2019 Chronic Other non-traumatic joint disorders (1 source) Hip pain; Translations: [Hip pain] Episodic Other non-traumatic joint disorders (15 sources) Arthritis of left knee; Translations: [Arthritis of left knee] Onset: 07-05-2019 07-06-2019 Other nutritional; endocrine; and metabolic disorders (20 sources) Obese class I; Translations: [Obesity, unspecified] Onset: 05-10-2018 05-21-2021 Chronic Other nutritional; endocrine; and metabolic disorders (1 source) Obese class I; Translations: [Obesity, Class I, BMI 30-34.9] Onset: 05-10-2018 05-10-2018 Other skin disorders (4 sources) Ingrowing great toenail; Translations: [Ingrowing nail] 07-03-2025 Episodic Other skin disorders (2 sources) Ingrowing nail; Translations: [Ingrowing nail] Onset: 07-03-2025 Episodic Secondary malignancies (20 sources) Secondary malignant neoplasm of bone; Translations: [Secondary malignant neoplasm of bone] Onset: 12-02-2019 12-02-2019 Chronic Secondary malignancies (2 sources) Secondary malignant neoplasm of bone; Translations: [Secondary malignant neoplasm of bone (HCC)] Onset: 01-25-2023 Chronic Unclassified (1 source) Patient encounter status; Translations: [Pre-operative cardiovascular examination] Onset: 05-18-2019 05-18-2019 Past or Other Problems Problem Classification Problem Date Documented Date Episodic/Chronic Calculus of urinary tract (20 sources) Kidney stone; Translations: [H/O: urinary stone] Onset: 05-05-2017 05-05-2017 Episodic Coronary atherosclerosis and other heart disease (20 sources) History of placement of stent for coronary artery disease; Translations: [Patient post percutaneous transluminal coronary angioplasty] Onset: 07-18-2018 07-18-2018 Episodic Genitourinary symptoms and ill-defined conditions (20 sources) Nocturia; Translations: [Nocturia] Onset: 05-05-2017 05-05-2017 Episodic Non-Hodgkin`s lymphoma (20 sources) History of B-cell lymphoma; Translations: [Personal history of other malignant neoplasms of lymphoid, hematopoietic and related tissues] Onset: 01-13-2016 01-13-2016 Episodic Other connective tissue disease (20 sources) Other symptoms and signs involving the musculoskeletal system; Translations: [Other musculoskeletal symptoms referable to limbs] Onset: 02-07-2024 02-07-2024 Episodic Other male genital disorders (20 sources) Spermatocele; Translations: [Spermatocele of epididymis, single] Onset: 05-05-2017 05-05-2017 Episodic Other male genital disorders (20 sources) Disorder of male genital organ; Translations: [Hydrocele, unspecified] Onset: 05-05-2017 08-07-2017 Episodic Other male genital disorders (4 sources) Disorder of prostate; Translations: [Disorder of prostate] Onset: 05-05-2017 08-07-2017 Episodic Other nervous system disorders (20 sources) Abnormal gait; Translations: [Unspecified abnormalities of gait and mobility] Onset: 02-07-2024 04-07-2023 Episodic Other nutritional; endocrine; and metabolic disorders (20 sources) Adult failure to thrive syndrome; Translations: [Adult failure to thrive] Onset: 08-27-2024 08-28-2024 Episodic Other screening for suspected conditions (not mental disorders or infectious disease) (20 sources) Raised prostate specific antigen; Translations: [Elevated prostate specific antigen [PSA]] Onset: 08-05-2019 08-05-2019 Episodic Results Test Name Value Interpretation Reference Range Facil ity CBC W Auto Differential pane l (Bld)on 08-02-2025 Basophils (Bld) [#/Vol] 0 10*3/uL 0.0 - 0.2 10*3/uL [facility] [employer] Basophils/100 WBC (Bld) 0.3 % 0.0 - 2.0 % [facility] [employer] Eosinophils (Bld) [#/Vol] 0.1 10*3/uL 0.0 - 0.5 10*3/uL [facility] [employer] Eosinophils/100 WBC (Bld) 1.3 % 0.0 - 6.0 % [facility] [employer] Erythrocyte distribution width (RBC) [Ratio] 13.5 % 11.5 - 15.0 % [facility] [employer] Hematocrit (Bld) [Volume fraction] 44.6 % 40.0 - 52.0 % [facility] [employer] Hemoglobin (Bld) [Mass/Vol] 14.3 g/dL 13.0 - 18.0 g/dL [facility] [employer] Immature granulocytes (Bld) [#/Vol] 0.1 10*3/uL High NINF - 0.1 10*3/uL [employer] Immature granulocytes/100 WBC (Bld) 0.5 % 0.0 - 2.0 % [facility] [employer] Interpretation and review of laboratory results Abnormal [facility] [employer] Lymphocytes (Bld) [#/Vol] 1.4 10*3/uL 1.0 - 4.3 10*3/uL [employer] [facility] [employer] Lymphocytes/100 WBC (Bld) 12.8 % Low 15.0 - 45.0 % [facility] [employer] MCH (RBC) [Entitic mass] 32.7 pg 26.0 - 34.0 pg [employer] MCHC (RBC) [Mass/Vol] 32.1 % 30.5 - 36.0 % [facility] [employer] MCV (RBC) [Entitic vol] 102.1 fL High 77.0 - 99.0 fL [facility] [employer] Monocytes (Bld) [#/Vol] 0.8 10*3/uL 0.0 - 0.9 10*3/uL [employer] Monocytes/100 WBC (Bld) 7.4 % 5.0 - 13.0 % [facility] Neutrophils (Bld) [#/Vol] 8.5 10*3/uL High 1.8 - 7.5 10*3/uL [facility] Neutrophils/100 WBC (Bld) 77.7 % 38.0 - 82.0 % [facility] Nucleated RBC/100 WBC (Bld) [Ratio] 0 % [facility] Platelet mean volume (Bld) [Entitic vol] 9.8 fL 9.0 - 12.7 fL [facility] Platelets (Bld) [#/Vol] 224 10*3/uL 140 - 440 10*3/uL [facility] RBC (Bld) [#/Vol] 4.37 10*6/uL Low 4.40 - 5.9 0 10*6/uL [facility] WBC (Bld) [#/Vol] 11 10*3/uL High 3.6 - 10.7 10*3/uL [facility] CBC WITH AUTO DIFFERENTIALon 08-02-2025 Basophils (Bld) [#/Vol] 0.0 10*3/uL Normal 0.0-0.2 [facility] Comment on above: Performed By: #### L [id number] ####Furniture Assembly Supervisor: DEEPALI DOWLING ([phone])[address] Basophils/100 WBC (Bld) 0.3 % Normal 0.0-2.0 [facility] Comment on above: Performed By: #### L [id number] ####Furniture Assembly Supervisor: DEEPALI DOWLING ([phone])[facility])[address] [place] [address] Eosinophils (Bld) [#/Vol] 0.1 10*3/uL Normal 0.0-0.5 [facility] Comment on above: Performed By: #### L [id number] ####Furniture Assembly Supervisor: DEEPALI DOWLING ([phone])[facility])[address] [place] [address] Eosinophils/100 WBC (Bld) 1.3 % Normal 0.0-6.0 [facility] Comment on above: Performed By: #### L [id number] ####Furniture Assembly Supervisor: DEEPALI DOWLING ([phone])[address] Erythrocyte distribution width (RBC) [Ratio] 13.5 % Normal 11.5-15.0 [facility] Comment on above: Performed By: #### L [id number] ####Furniture Assembly Supervisor: DEEPALI DOWLING ([phone])[address] Hematocrit (Bld) [Volume fraction] 44.6 % Normal 40.0-52.0 [facility] Comment on above: Performed By: #### L [id number] ####Furniture Assembly Supervisor: DEEPALI DOWLING ([phone])[address] Hemoglobin (Bld) [Mass/Vol] 14.3 g/dL Normal 13.0-18.0 [facility] Comment on above: Performed By: #### L [id number] ####Furniture Assembly Supervisor: DEEPALI DOWLING ([phone])[address] IMMATURE GRANS % 0.5 % Normal 0.0-2.0 [facility] Comment on above: Performed By: #### L [id number] ####Furniture Assembly Supervisor: DEEPALI DOWLING ([phone])[address] IMMATURE GRANS ABSOLUTE 0.1 10*3/uL High <0.1 [facility] Comment on above: Performed By: #### L [id number] ####Furniture Assembly Supervisor: DEEPALI DOWLING ([phone])[address] Lymphocytes (Bld) [#/Vol] 1.4 10*3/uL Normal 1.0-4.3 [facility] Comment on above: Performed By: #### L [id number] ####Furniture Assembly Supervisor: DEEPALI DOWLING ([phone])[facility])[address] [place] [address] Lymphocytes/100 WBC (Bld) 12.8 % Low 15.0-45.0 [facility] Comment on above: Performed By: #### L [id number] ####Furniture Assembly Supervisor: DEEPALI DOWLING ([phone])[facility])[address] [place] [address] MCH (RBC) [Entitic mass] 32.7 pg Normal 26.0-34.0 [facility] Comment on above: Performed By: #### L [id number] ####Furniture Assembly Supervisor: DEEPALI DOWLING ([phone])[facility])[address] [place] [address] MCHC 32.1 % Normal 30.5-36.0 [facility] Comment on above: Performed By: #### L [id number] ####Furniture Assembly Supervisor: DEEPALI DOWLING ([phone])[facility])[address] [place] [address] MCV (RBC) [Entitic vol] 102.1 fL High 77.0-99.0 [facility] Comment on above: Performed By: #### L [id number] ####Furniture Assembly Supervisor: DEEPALI DOWLING ([phone])[facility])[address] [place] [address] Monocytes (Bld) [#/Vol] 0.8 10*3/uL Normal 0.0-0.9 [facility] Comment on above: Performed By: #### L [id number] ####Furniture Assembly Supervisor: DEEPALI DOWLING ([phone])[facility])[address] [place] [address] Monocytes/100 WBC (Bld) 7.4 % Normal 5.0-13.0 [facility] Comment on above: Performed By: #### L [id number] ####Furniture Assembly Supervisor: DEEPALI DOLWING ([phone])[facility])[address] [place] [address] NEUTROPHILS ABSOLUTE 8.5 10*3/uL High 1.8-7.5 [facility] Comment on above: Performed By: #### L [id number] ####Furniture Assembly Supervisor: DEEPALI DOWLING ([phone])[facility] ([facility])[address] [place] [address] Neutrophils/100 WBC (Bld) 77.7 % Normal 38.0-82.0 [facility] Comment on above: Performed By: #### L [id number] ####Furniture Assembly Supervisor: DEEPALI DOWLING ([phone])[facility] ([facility])[address] [place] [address] NRBC 0.0 /100 WBCs Normal 0.0-2.0 [facility] Comment on above: Performed By: #### L [id number] ####Furniture Assembly Supervisor: DEEPALI DOWLING ([phone])[facility] ([facility])[address] [place] [address] Platelet mean volume (Bld) [Entitic vol] 9.8 fL Normal 9.0-12.7 [facility] Comment on above: Performed By: #### L [id number] ####Furniture Assembly Supervisor: DEEPALI DOWLING ([phone])[facility] ([facility])[address] [place] [address] [place] Platelets (Bld) [#/Vol] 224 10*3/uL Normal 140-440 [facility] Comment on above: Performed By: #### L [id number] ####Furniture Assembly Supervisor: DEEPALI DOWLING ([phone])[facility] ([facility])[address] [place] [address] [place] RBC (Bld) [#/Vol] 4.37 10*6/uL Low 4.40-5.90 [facility] Comment on above: Performed By: #### L [id number] ####Furniture Assembly Supervisor: DEEPALI DOWLING ([phone])[facility] ([facility])[address] [place] [address] [place] WBC (Bld) [#/Vol] 11.0 10*3/uL High 3.6-10.7 [facility] Comment on above: Performed By: #### L [id number] ####Furniture Assembly Supervisor: DEEPALI DOWLING ([phone])[facility] ([facility])[address] [place] [address] COMPREHENSIVE METABOLIC PANE [place] 08-02-2025 Albumin [Mass/Vol] 3.3 g/dL Low 3.4-4.8 [facility] Comment on above: Performed By: #### L [id number] ####Furniture Assembly Supervisor: DEEPALI DOWLING ([phone])[facility] ([facility])[address] [place] [address] ALP [Catalytic activity/Vol] 75 U/L Normal 40-150 [facility] Comment on above: Performed By: #### L [id number] ####Furniture Assembly Supervisor: DEEPALI DOWLING ([phone])[facility] ([facility])[address] [place] [address] ALT [Catalytic activity/Vol] 97 U/L High <40 [facility] Comment on above: Performed By: #### L [id number] ####Furniture Assembly Supervisor: DEEPALI DOWLING ([phone])[facility] ([facility])[address] [place] [address] Anion gap [Moles/Vol] 8 mmol/L Normal 3-13 [facility] Comment on above: Performed By: #### L [id number] ####Furniture Assembly Supervisor: DEEPLAI DOWLING ([phone])[facility] ([facility])[address] [place] [address] AST [Catalytic activity/Vol] 58 U/L High <34 [facility] Comment on above: Performed By: #### L [id number] ####Furniture Assembly Supervisor: DEEPALI DOWLING ([phone])[facility] ([facility])[address] [place] [address] Bilirubin [Mass/Vol] 1.1 mg/dL Normal <1.2 [facility] Comment on above: Performed By: #### L [id number] ####Furniture Assembly Supervisor: DEEPALI DOWLING ([phone])[facility] [facility] [place] [address] [place] Calcium [Mass/Vol] 9.0 mg/dL Normal 8.8-10.0 [facility] Comment on above: Performed By: #### L [id number] ####Furniture Assembly Supervisor: DEEPALI DOWLING ([phone])[facility] ([facility])[address] [place] [address] Chloride [Moles/Vol] 108 mmol/L High 98-107 [facility] Comment on above: Performed By: #### L [id number] ####Furniture Assembly Supervisor: DEEPALI DOWLING ([phone])[facility] ([facility])[address] [place] [address] CO2 [Moles/Vol] 28 mmol/L Normal 23-31 [facility] Comment on above: Performed By: #### L [id number] ####Furniture Assembly Supervisor: DEEPALI DOWLING ([phone])[facility] ([facility])[address] [place] [address] Creatinine [Mass/Vol] 0.63 mg/dL Low 0.72-1.25 [facility] Comment on above: Performed By: #### L [id number] ####Furniture Assembly Supervisor: DEEPALI DOWLING ([phone])[facility] ([facility])[address] [place] [address] GLOMERULAR FILTRATION RATE ML/MIN/1.73 SQ M.PREDICTED >90.0 Normal >60.0 [facility] Comment on above: Result Comment: Calc ulation based on the Chronic Kidney Disease Epidemiology Collaboration (CKD-EPI) equation refit without adjustment for race Performed By: #### L [id number] ####Furniture Assembly Supervisor: DEEPALI DOWLING ([phone])[facility] ([facility])[address] [place] [address] [place] Glucose [Mass/Vol] 96 mg/dL Normal 82-115 [facility] Comment on above: Performed By: #### L [id number] ####Furniture Assembly Supervisor: DEEPALI DOWLING ([phone])[facility] ([facility])[address] [place] [address] [place] Potassium [Moles/Vol] 3.9 mmol/L Normal 3.5-5.1 [facility] Comment on above: Result Comment: Plas ma potassium values may be up to 0.5 mmol/L lower than serum values. Performed By: #### L [id number] ####Furniture Assembly Supervisor: DEEPALI DOWLING ([phone])[facility] ([facility])[address] [place] [address] Protein [Mass/Vol] 6.3 g/dL Low 6.4-8.3 [facility] Comment on above: Performed By: #### L [id number] ####Furniture Assembly Supervisor: DEEPALI DOWLING ([phone])[facility] ([facility])[address] [place] [address] Sodium [Moles/Vol] 144 mmol/L Normal 136-145 [facility] Comment on above: Performed By: #### L [id number] ####Furniture Assembly Supervisor: DEEPALI DOWLING ([phone])[facility] ([facility])[address] [place] [address] Urea nitrogen [Mass/Vol] 15 mg/dL Normal 9-23 [facility] Comment on above: Performed By: #### L [id number] ####Furniture Assembly Supervisor: DEEPALI DOWLING ([phone])[facility])[address] [place] [address] Comprehensive metabolic 1998 panelon 08-02-2025 Albumin [Mass/Vol] 3.3 g/dL Low 3.4 - 4.8 g/dL [facility] ALP [Catalytic activity/Vol] 75 U/L 40 - 150 U/L [facility] ALT [Catalytic activity/Vol] 97 U/L High NINF - 40 U/L [facility] Anion gap [Moles/Vol] 8 mmol/L 3 - 13 mmol/L [facility] AST [Catalytic activity/Vol] 58 U/L High [facility] MARY[facility]EF - 34 U/L [facility] Bilirubin [Mass/Vol] 1.1 mg/dL NINF - 1.2 mg/dL [facility] Calcium [Mass/Vol] 9 mg/dL 8.8 - 10. 0 mg/dL [facility] Chloride [Moles/Vol] 108 mmol/L High 98 - 107 mmol/L [facility] CO2 [Moles/Vol] 28 mmol/L 23 - 31 mmol/L [facility] Creatinine [Mass/Vol] 0.63 mg/dL Low 0.72 - 1.25 mg/dL [facility] GFR/1.73 sq M.predicted (S/P/Bld) [Vol rate/Area] - PINF [facility] Comment on above: Calculation based on the Chronic Kidney Disease Epidemiology Collaboration (CKD-EPI) equation refit without adjustment for race Glucose [Mass/Vol] 96 mg/dL 82 - 115 mg/dL [facility] Interpretation and review of laboratory results Abnormal [facility] Potassium [Moles/Vol] 3.9 mmol/L 3.5 - 5.1 mmol/L [facility] Comment on above: Plasma potassium carissa ues may be up to 0.5 mmol/L lower than serum values. Protein [Mass/Vol] 6.3 g/dL Low 6.4 - 8.3 g/dL [facility] Sodium [Moles/Vol] 144 mmol/L 136 - 145 mmol/L [facility] Urea nitrogen [Mass/Vol] 15 mg/dL 9 - 23 mg/dL [facility] Office Visiton 08-02-2025 Follow-up visit [id number] Izabela London 1940 M Date Provider Department Center 08/02/2025 [id number] URIAS [facility] ONC None Family History Problem Relation Age of Onset Cancer Father 77 Comments: Colon Family Status - Relation Status Age at Father Level of Service:01942 [place] OFFICE/OUTPATIENT ESTABLISHED MOD MDM 30 MIN Reason for Visit and Comments: Follow-up [644532] Normal [facility] PSA TOTAL AND FREE (BKR QUES T)on 08-02-2025 PSA, % FREE - [facility] 38 % Normal >25 [facility] Comment on above: Result Comment: Estimated (x) PSA(ng/mL) Free PSA(%) Probability of Cancer (as %) 0-2.5 (*) Approx. 1 2.6-4.0 (1) 0-27 (2) 24 (3) 4.1-10 (4) 0-10 56 11-15 28 16-20 20 21-25 16 >or=26 8 >10 (+) N/A >50 References: (1)Erica et al.:Urology 60: 469-474 (2002) (2)Erica et al.:J.Urol 168: 922-925 (2001) Free PSA(%) Sensitivity(%) Specificity(%) < or = 25 85 19 < or = 30 93 9 (3)Angelesona et al.:LETICIA 277: 4540-7059 (1996) (4)Catalona et al.:LETICIA 279: 2923-2621 (1997) (x) These estimates vary greatly with age, ethnicity, family history and SHAKEEL results. (*) The diagnostic usefulness of % free PSA has not been established in patients with Total PSA below 2.6 ng/mL. (+) In men with PSA values above 10 ng/mL, prostate cancer risk is determined by Total PSA alone. The Total PSA value from this assay system is standardized against the equimolar PSA standard. The test result will be approximately 20% higher when compared to the WHO-standardized Total PSA (Siemens assay). Comparison of serial PSA results should be interpreted with this fact in mind. This test was performed using the Shirin Rhinelander Immunoassay method. Values obtained from different assay methods cannot be used interchangeably. PSA levels, regardless of value, should not be interpreted as absolute evidence of the presence or absence of disease. Test Performed by [facility], [place] [facility], [address] [place] [address] Jake Hahn M.D., Ph.D., Director of Laboratories , [facility] [id number] Performed By: #### L [id number] ####[facility] ([employer])[id number] [place], [facility] PSA, FREE - [facility] 1.95 ng/mL Normal [facility] Comment on above: Performed By: #### L [id number] ####[facility] ([employer])[id number] [place], [facility] PSA, TOTAL - [facility] 5.2 ng/mL High <=4.0 [facility] Comment on above: Performed By: #### L [id number] ####[facility] ([employer])[id number] [place], [facility] Progress Noteon 08-02-2025 Progress Note Patient ID: Izabela London is a 85 y.o. male. HPI Tolerating Zytiga well. No hot flashes. he has the following oncology history 1. 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 2. S/p REPOCH chemotherapy with IT methotrexate. IT MTX started with cycle 3 and was given on day [address] scan post treatment and BMBx showed no evidence of disease hence CR. 4. Metastatic prostate cancer diagnosed Oct 2019. Metastatic sites involve bone. Under the care of Dr. Sarmiento and was getting GnRH agonist. Initially he got Lupron and then was started on Zoladex. 5. Due to rising PSA in spite of low testosterone, started on Xtandi 160 mg p.o. daily March 2021. 6. Progression of disease March 2025. Started on Zytiga 1000 mg p.o. daily plus prednisone. Review of Systems - Oncology No nausea, vomiting, diarrhea, fever, night sweats, chills, cough, shortness of breath, chest pain BSA: There is no height or weight on file to calculate BSA. There were no vitals taken for this visit. Physical Exam No lymphadenopathy or hepatosplenomegaly. No lower extremity edema. Lab Results Component Value Date WBC 11.0 (H) 08/02/2025 HGB 14.3 08/02/2025 HCT 44.6 08/02/2025 MCV 102.1 (H) 08/02/2025 PLT 224 08/02/2025 Lab Results Component Value Date GLUCOSE 96 08/02/2025 CALCIUM 9.0 08/02/2025 NA 144 08/02/2025 K 3.9 08/02/2025 CO2 28 08/02/2025 CL 108 (H) 08/02/2025 BUN 15 08/02/2025 CREATININE 0.63 (L) 08/02/2025 PSA Total (Diagnostic Post-Prostatectomy) Order: [id number] Status: Final result Next appt: None Dx: Malignant neoplasm metastatic to bone... Test Result Released: Yes (seen) 0 Result Notes Component Ref Range & Units 1 mo ago 3 mo ago 5 mo ago 8 mo ago 11 mo ago PSA Total <=0.200 ng/mL 7.253 High 9.250 High 8.814 High 5.100 High 1.608 R Resulting Agency SAC SAC SAC SAC SAC Narrative Performed by: SAC Testing performed on the [employer] I using a two-step chemiluminescent microparticle immunoassay method. Results obtained by different methods should not be used interchangeably. A prostate specific antigen of >0.2 ng/mL is considered as initial evidence of biochemical recurrence following radical prostatectomy. Assessment/Plan he appears to be in complete remission from Burkitt's Lymphoma standpoint. 2. Metastatic prostate cancer to the bones continue Zytiga 1000 mg p.o. daily plus prednisone 5 mg p.o. twice daily Discussed some of the side effects that include hot flashes, hypertension, hypokalemia among others. He will get formal teaching for the above. PSA improved since starting Zytiga continue Zoladex 10.8mg depot every 12 weeks Discussed some of the side effects that include hot flashes, back pain, very low risk of seizures among others. We will touch base after bone scan and proceed accordingly. Median duration of response with xtandi is 15 months Continue Zometa every 12 weeks. I did discuss risk of osteonecrosis of the jaw which is 1 to 2% in patients receiving Zometa 3. Follow-up in 2-3 months. Check CBC, CMP and PSA at that visit. Follow-up labs from today 4. Patient verbalizes understanding and agrees with the plan. There are no diagnoses linked to this encounter. Plan as of 08/02/25 Electronically signed Kristen Urias MD [facility] Progress Note Patient arrived ambulatory with walker for every 12 week Zometa and Zoladex. Patient denies any hip, groin or jaw pain. Patient denies any recent dental procedures. Patient denies any other new or worsening symptoms today. See toxicity assessment. Per patient, Dr. Urias is wanting PSA and CBC studies collected today. PIV placed in R AC and CBC/CMP/PSA studies collected and sent to CCL. POC reviewed and patient verbalized understanding. Patient has no further questions at this time. Patient tolerated infusion with no noted complications. PIV removed intact and site benign. Zoladex inserted in LLQ of abdomen and site benign. Patient verbalized understanding of discharge plan and follow-up care. Patient discharged home ambulatory. [facility] Office Visiton 07-03-2025 Follow-up visit [id number] Izabela London 1940 Date Provider Department Center 07/03/2025 [id number]-FNCJVJERAMIE CHING [facility] Stacey GUILLERMO Family History Problem Relation Age of Onset Cancer Father 77 Comments: Colon Family Status - Relation Status Age at Father Level of Service:71850 [place] OFFICE/OUTPATIENT ESTABLISHED LOW MDM 20 MIN Reason for Visit and Comments: Toe Pain [103071] - Right Normal [facility] Progress Noteon 07-03-2025 Progress Note Flu shot Patient was offered the flu vaccination at their visit today and Patient accepted. PCP Notified. Immunizations Given Immunizations never marked as reviewed Influenza, adjuvanted, trivalent, preservative-free [last edited by Jessy King MA on 07/03/2025 1157] Given by: Jessy King MA Date: 07/03/2025 Dose: 0.5 mL Site: Left arm Route: Intramuscular ND: [id number] CVX code: 168 VIS Publish Date: 11/24/2024 Product: Fluad [employer] Manager: [employer] Lot number: [id number] Expiration date: 03/24/2026 Questionnaire Question Answer VIS Presented Date 07/03/[address] [facility] Progress Note [facility] - [address] [facility] [id number] Izabela London is a 85 y.o. male who presents for Toe Pain (Right//) Assessment/Plan 1. Ingrown nail of great toe of right foot (L60.0) - acute, worsening - Visible irritation and drainage noted on examination - Prescribed antibiotic to be taken twice a day for 10 days - Patient instructed to discontinue calcium supplement while taking the antibiotic due to potential absorption interference - Referral to data software engineer recommended - Patient advised to drink plenty of water and report any fever, chills, or worsening symptoms - Follow-up with data software engineer to be scheduled Other Clinical Considerations: - Flu Vaccine: - Flu vaccine to be administered during this visit - Medication Management: - Patient to pickling solution maker new antibiotic prescription at [facility] pharmacy on [address] in [place] - Fall Prevention: - Patient uses Rollator when going out - No recent falls reported - Direct Support Worker Referral: - Exploring options for data software engineer closer to patient's home in [place] - Considering options in [facility] or [place] - Preference for provider accepting [facility] insurance Izabela was seen today for toe pain. Diagnoses and all orders for this visit: Ingrown nail of great toe of right foot (Primary) - Flu vaccine (FLUAD), trivalent, adjuvanted, preservative-free (ages 65+) - doxycycline (Monodox) 100 MG capsule; Take 1 capsule (100 mg) by mouth 2 times daily for 10 days. Take with at least 8 ounces (large glass) of water, do not lie down for 30 minutes after - [facility]; Future Flu vaccine today Don't take calcium while taking the Doxycycline antibiotic. Schedule with podiatry. Call if new, persistent or worsening symptoms. Jeramie Ching MD Subjective History of Present Illness Izabela London, an 85-year-old male, presents with irritation on his toe that began on Wednesday or of last week. The patient reports drainage from the right hand corner of the affected area. He has experienced a similar problem once before, which he thought was an ingrown nail. The patient denies any fever or chills. He has never seen a data software engineer before. Mr. London reports an allergy to Amoxicillin, which previously resulted in a 4-5 day hospitalization. He currently takes a calcium supplement. The patient uses a Rollator when going out but not at home and reports no recent falls. I obtained verbal consent from the patient and/or patient's guardian to use ambient listening technology during this encounter before the ambient technology was engaged. Review of Systems Constitutional: Negative for chills, fatigue and fever. Neurological: Negative for weakness. Objective BP 126/87 (BP Location: Left arm, Patient Position: Sitting, BP Cuff Size: Adult) Pulse 102 Temp 36.4 ?C (97.5 ?F) (Temporal) Ht 5' 10 (1.778 m) Wt 204 lb 6.4 oz (92.7 kg) BMI 29.33 kg/m? Physical Exam Vitals and nursing note reviewed. Constitutional: Appearance: Normal appearance. He is overweight. Musculoskeletal: Feet: Neurological: Mental Status: He is alert. Results Jeramie Ching MD [facility] 36on 07-02-2025 36 S: Patient called [facility] clinical access center with complaint of right great toe pain, swelling, pus at toenail B: started about 06/28/25. A: Pt complains of pus on the inner right side of toenail. He denies an ingrown toenail. He said most of the toe is swollen. He denies red streak, severe pain, fever. He has been soking his toe in epsom salts. R: appt 07/[address] Ching at 1140 am. Pt advised to bring photo ID, insurance card, medications with them to their visit if possible. Arrive 15 min prior to appt. Home care advice given to patient: ANTIBIOTIC OINTMENT: *soak your toe in warm water 20 min a day, you may add epsom salts * Put a small amount of antibiotic ointment on the wound once a day for 3 days. * You can get this vbwh-yrq-hhkhhoo (OTC) at a drugstore. CALL BACK IF: * Red streak over 1 inch * You become worse Covid questions: 1) Current symptoms consistent with Covid -no 2) Pt tested positive for Covid in last 10 days-hasn't taken a test 3) Known exposure to Covid in the last 10 days -no 4)Traveled out of the country in the last 30 days-no Reason for Disposition Wound looks infected (e.g., spreading redness, pus) Finger or toe wound and entire finger or toe swollen Protocols used: Toe Awrs-CXSCE-QZ, Wound Infection [id number] Normal [facility] CBC W Auto Differential pane l (Bld)Ordered By: Isabel Soni on 06-04-2025 Basophils (Bld) [#/Vol] 0.1 10*3/uL 0.0 - 0.2 10*3/uL [facility] Basophils/100 WBC (Bld) 0.5 % 0.0 - 2.0 % [facility] Eosinophils (Bld) [#/Vol] 0.1 10*3/uL 0.0 - 0.5 10*3/uL [facility] Eosinophils/100 WBC (Bld) 1.5 % 0.0 - 6.0 % [facility] Erythrocyte distribution width (RBC) [Ratio] 13.8 % 11.5 - 15.0 % [facility] Hematocrit (Bld) [Volume fraction] 44.4 % 40.0 - 52.0 % [facility] Hemoglobin (Bld) [Mass/Vol] 14 g/dL 13.0 - 18.0 g/dL [facility] Immature granulocytes (Bld) [#/Vol] 0 10*3/uL NINF - 0.1 10*3/uL [facility] Immature granulocytes/100 WBC (Bld) 0.4 % 0.0 - 2.0 % [facility] Interpretation and review of laboratory results Abnormal [facility] Lymphocytes (Bld) [#/Vol] 1.5 10*3/uL 1.0 - 4.3 10*3/uL [facility] Lymphocytes/100 WBC (Bld) 15.5 % 15.0 - 45.0 % [facility] MCH (RBC) [Entitic mass] 32.3 pg 26.0 - 34.0 pg [facility] MCHC (RBC) [Mass/Vol] 31.5 % 30.5 - 36.0 % [facility] MCV (RBC) [Entitic vol] 102.3 fL High 77.0 - 99.0 fL [facility] Monocytes (Bld) [#/Vol] 0.8 10*3/uL 0.0 - 0.9 10*3/uL [facility] Monocytes/100 WBC (Bld) 8.1 % 5.0 - 13.0 % [facility] Neutrophils (Bld) [#/Vol] 7.1 10*3/uL 1.8 - 7.5 10*3/uL [facility] Neutrophils/100 WBC (Bld) 74 % 38.0 - 82.0 % [facility] Nucleated RBC/100 WBC (Bld) [Ratio] 0 % [facility] Platelet mean volume (Bld) [Entitic vol] 10.3 fL 9.0 - 12.7 fL [facility] Platelets (Bld) [#/Vol] 254 10*3/uL 140 - 440 10*3/uL [facility] RBC (Bld) [#/Vol] 4.34 10*6/uL Low 4.40 - 5.9 0 10*6/uL [facility] WBC (Bld) [#/Vol] 9.6 10*3/uL 3.6 - 10.7 10*3/uL [facility] CBC WITH AUTO DIFFERENTIALon 08-11-2025 Basophils (Bld) [#/Vol] 0.1 10*3/uL Normal 0.0-0.2 [facility] Comment on above: Performed By: #### L [id number] ####Furniture Assembly Supervisor: DEEPALI DOWLING ([phone])[facility])[address] [place] [address] Basophils/100 WBC (Bld) 0.5 % Normal 0.0-2.0 [facility] Comment on above: Performed By: #### L [id number] ####Furniture Assembly Supervisor: DEEPALI DOWLING ([phone])[facility])[address] [place] [address] Eosinophils (Bld) [#/Vol] 0.1 10*3/uL Normal 0.0-0.5 [facility] Comment on above: Performed By: #### L [id number] ####Furniture Assembly Supervisor: DEEPALI DOWLING ([phone])[facility])[address] [place] [address] [place] Eosinophils/100 WBC (Bld) 1.5 % Normal 0.0-6.0 [facility] Comment on above: Performed By: #### L [id number] ####Furniture Assembly Supervisor: DEEPALI DOWLING ([phone])[facility])[address] [place] [address] Erythrocyte distribution width (RBC) [Ratio] 13.8 % Normal 11.5-15.0 [facility] Comment on above: Performed By: #### L [id number] ####Furniture Assembly Supervisor: DEEPALI DOWLING ([phone])[facility])[address] [place] [address] Hematocrit (Bld) [Volume fraction] 44.4 % Normal 40.0-52.0 [facility] Comment on above: Performed By: #### L [id number] ####Furniture Assembly Supervisor: DEEPALI DOWLNIG ([phone])[facility])[address] [place] [address] Hemoglobin (Bld) [Mass/Vol] 14.0 g/dL Normal 13.0-18.0 [facility] Comment on above: Performed By: #### L [id number] ####Furniture Assembly Supervisor: DEEPALI DOWLING ([phone])[address] IMMATURE GRANS % 0.4 % Normal 0.0-2.0 [facility] Comment on above: Performed By: #### L [id number] ####Furniture Assembly Supervisor: DEEPALI DOWLING ([phone])[facility])[address] [place] [address] IMMATURE GRANS ABSOLUTE 0.0 10*3/uL Normal <0.1 [facility] Comment on above: Performed By: #### L [id number] ####Furniture Assembly Supervisor: DEEPALI DOWLING ([phone])[address] Lymphocytes (Bld) [#/Vol] 1.5 10*3/uL Normal 1.0-4.3 [facility] Comment on above: Performed By: #### L [id number] ####Furniture Assembly Supervisor: DEEPALI DOWLING ([phone])[address] Lymphocytes/100 WBC (Bld) 15.5 % Normal 15.0-45.0 [facility] Comment on above: Performed By: #### L [id number] ####Furniture Assembly Supervisor: DEEPALI DOWLING ([phone])[address] MCH (RBC) [Entitic mass] 32.3 pg Normal 26.0-34.0 [facility] Comment on above: Performed By: #### L [id number] ####Furniture Assembly Supervisor: DEEPALI DOWLING ([phone])[address] MCHC 31.5 % Normal 30.5-36.0 [facility] Comment on above: Performed By: #### L [id number] ####Furniture Assembly Supervisor: DEEPALI [phone])[facility] ([facility])[address] [place] [address] MCV (RBC) [Entitic vol] 102.3 fL High 77.0-99.0 [facility] Comment on above: Performed By: #### L [id number] ####Furniture Assembly Supervisor: DEEPALI DOWLING ([phone])[facility])[address] [place] [address] Monocytes (Bld) [#/Vol] 0.8 10*3/uL Normal 0.0-0.9 [facility] Comment on above: Performed By: #### L [id number] ####Furniture Assembly Supervisor: DEEPALI DOWLING ([phone])[facility])[address] [place] [address] Monocytes/100 WBC (Bld) 8.1 % Normal 5.0-13.0 [facility] Comment on above: Performed By: #### L [id number] ####Furniture Assembly Supervisor: DEEPALI DOWLING ([phone])[facility] ([facility])[address] [place] [address] NEUTROPHILS ABSOLUTE 7.1 10*3/uL Normal 1.8-7.5 [facility] Comment on above: Performed By: #### L [id number] ####Furniture Assembly Supervisor: DEEPALI DOWLING ([phone])[facility])[address] [place] [address] Neutrophils/100 WBC (Bld) 74.0 % Normal 38.0-82.0 [facility] Comment on above: Performed By: #### L [id number] ####Furniture Assembly Supervisor: DEEPALI DOWLING ([phone])[facility] ([facility])[address] [place] [address] NRBC 0.0 /100 WBCs Normal 0.0-2.0 [facility] Comment on above: Performed By: #### L [id number] ####[employer]iture [employer] Supervisor: DEEPALI DOWLING ([phone])[facility] ([facility])[address] [place] [address] Platelet mean volume (Bld) [Entitic vol] 10.3 fL Normal 9.0-12.7 [facility] Comment on above: Performed By: #### L [id number] ####Furniture [employer] Supervisor: DEEPALI DOWLING ([phone])[facility] ([facility])[address] [place] [address] Platelets (Bld) [#/Vol] 254 10*3/uL Normal 140-440 [facility] Comment on above: Performed By: #### L [id number] ####Furniture Assembly Supervisor: DEEPALI DOWLING ([phone])[facility] ([facility])[address] [place] [address] RBC (Bld) [#/Vol] 4.34 10*6/uL Low 4.40-5.90 [facility] Comment on above: Performed By: #### L [id number] ####Furniture [employer] Supervisor: DEEPALI DOWLING ([phone])[facility] ([facility])[address] [place] [address] WBC (Bld) [#/Vol] 9.6 10*3/uL Normal 3.6-10.7 [facility] Comment on above: Performed By: #### L [id number] ####Furniture Assembly Supervisor: DEEPALI DOWLING ([phone])[facility])[address] [place] [address] COMPREHENSIVE METABOLIC PANE Barrie 06-04-2025 Albumin [Mass/Vol] 3.3 g/dL Low 3.4-4.8 [facility] Comment on above: Performed By: #### L [id number] ####Furniture Assembly Supervisor: DEEPALI DOWLING ([phone])[facility] ([facility])[address] [place] [address] ALP [Catalytic activity/Vol] 70 U/L Normal 40-150 [facility] Comment on above: Performed By: #### L [id number] ####Furniture Assembly Supervisor: DEEPALI DOWLING ([phone])[facility] ([facility])[address] [place] [address] ALT [Catalytic activity/Vol] 88 U/L High <40 [facility] Comment on above: Performed By: #### L [id number] ####Furniture Assembly Supervisor: DEEPALI DOWLING ([phone])[facility] ([facility])[address] [place] [address] Anion gap [Moles/Vol] 8 mmol/L Normal 3-13 [facility] Comment on above: Performed By: #### L [id number] ####Furniture Assembly Supervisor: DEEPALI DOWLING ([phone])[facility] ([facility])[address] [place] [address] AST [Catalytic activity/Vol] 57 U/L High <34 [facility] Comment on above: Performed By: #### L [id number] ####Furniture Assembly Supervisor: DEEPALI DOWLING ([phone])[facility] ([facility])[address] [place] [address] Bilirubin [Mass/Vol] 0.8 mg/dL Normal <1.2 [facility] Comment on above: Performed By: #### L [id number] ####Furniture Assembly Supervisor: DEEPALI DOWLING ([phone])[facility] ([facility])[address] [place] [address] Calcium [Mass/Vol] 8.8 mg/dL Normal 8.8-10.0 [facility] Comment on above: Performed By: #### L [id number] ####Furniture Assembly Supervisor: DEEPALI DOWLING ([phone])[facility] ([facility])[address] [place] [address] [place] Chloride [Moles/Vol] 103 mmol/L Normal 98-107 [facility] Comment on above: Performed By: #### L [id number] ####Furniture Assembly Supervisor: DEEPALI DOWLING ([phone])[facility] ([facility])[address] [place] [address] [place] CO2 [Moles/Vol] 29 mmol/L Normal 23-31 [facility] Comment on above: Performed By: #### L [id number] ####Furniture Assembly Supervisor: DEEPALI DOWLING ([phone])[facility] ([facility])[address] [place] [address] [place] Creatinine [Mass/Vol] 0.64 mg/dL Low 0.72-1.25 [facility] Comment on above: Performed By: #### L [id number] ####Furniture Assembly Supervisor: DEEPALI DOWLING ([phone])[address] GLOMERULAR FILTRATION RATE ML/MIN/1.73 SQ M.PREDICTED >90.0 Normal >60.0 [facility] Comment on above: Result Comment: Calc ulation based on the Chronic Kidney Disease Epidemiology Collaboration (CKD-EPI) equation refit without adjustment for race Performed By: #### L [id number] ####Furniture Assembly Supervisor: DEEPALI DOWLING ([phone])[address] Glucose [Mass/Vol] 89 mg/dL Normal 82-115 [facility] Comment on above: Performed By: #### L [id number] ####Furniture Assembly Supervisor: DEEPALI DOWLING ([phone])[address] Potassium [Moles/Vol] 4.3 mmol/L Normal 3.5-5.1 [facility] Comment on above: Result Comment: Plas ma potassium values may be up to 0.5 mmol/L lower than serum values. Performed By: #### L [id number] ####Furniture Assembly Supervisor: DEEPALI DOWLING ([phone])[address] Protein [Mass/Vol] 6.0 g/dL Low 6.4-8.3 [facility] Comment on above: Performed By: #### L [id number] ####Furniture Assembly Supervisor: DEEPALI DOWLING ([phone])[address] Sodium [Moles/Vol] 140 mmol/L Normal 136-145 [facility] Comment on above: Performed By: #### L [id number] ####Furniture Assembly Supervisor: DEEPALI [phone])[place] [address] [place] Urea nitrogen [Mass/Vol] 21 mg/dL Normal 9-23 [facility] Comment on above: Performed By: #### L [id number] ####Furniture Assembly Supervisor: DEEPALI DOWLING ([phone])[facility] ([facility])[address] [place] [address] Comprehensive metabolic 1998 panelon 06-04-2025 Albumin [Mass/Vol] 3.3 g/dL Low 3.4 - 4.8 g/dL [facility] ALP [Catalytic activity/Vol] 70 U/L 40 - 150 U/L [facility] ALT [Catalytic activity/Vol] 88 U/L High NINF - 40 U/L [facility] Anion gap [Moles/Vol] 8 mmol/L 3 - 13 mmol/L [facility] AST [Catalytic activity/Vol] 57 U/L High [facility]ARY[facility]EF - 34 U/L [facility] Bilirubin [Mass/Vol] 0.8 mg/dL NINF - 1.2 mg/dL [facility] Calcium [Mass/Vol] 8.8 mg/dL 8.8 - 10. 0 mg/dL [facility] Chloride [Moles/Vol] 103 mmol/L 98 - 107 mmol/L [facility] CO2 [Moles/Vol] 29 mmol/L 23 - 31 mmol/L [facility] Creatinine [Mass/Vol] 0.64 mg/dL Low 0.72 - 1.25 mg/dL [facility] GFR/1.73 sq M.predicted (S/P/Bld) [Vol rate/Area] - PINF [facility] Comment on above: Calculation based on the Chronic Kidney Disease Epidemiology Collaboration (CKD-EPI) equation refit without adjustment for race Glucose [Mass/Vol] 89 mg/dL 82 - 115 mg/dL [facility] Interpretation and review of laboratory results Abnormal [facility] Potassium [Moles/Vol] 4.3 mmol/L 3.5 - 5.1 mmol/L [facility] Comment on above: Plasma potassium carissa ues may be up to 0.5 mmol/L lower than serum values. Protein [Mass/Vol] 6 g/dL Low 6.4 - 8.3 g/dL [facility] Sodium [Moles/Vol] 140 mmol/L 136 - 145 mmol/L [facility] Urea nitrogen [Mass/Vol] 21 mg/dL 9 - 23 mg/dL [facility] Laboratory - Chemistry and C hemistry - challengeon 06-04-2025 Prostate specific Ag [Mass/Vol] 7.253 ng/mL High NINF - 0.200 ng/mL [facility] No Panel Informationon 06-04 Interpretation and review of laboratory results Abnormal [facility] Testing performed on the [employer] I using a two-step chemiluminescent microparticle immunoassay method. Results obtained by different methods should not be used interchangeably. A prostate specific antigen of >0.2 ng/mL is considered as initial evidence of biochemical recurrence following radical prostatectomy. [facility] Office Visiton 06-04-2025 Follow-up visit [id number] Izabela London 1940 M Date Provider Department Center 06/04/2025 [id number] URIAS [facility] ON[facility] None Family History Problem Relation Age of Onset Cancer Father 77 Comments: Colon Family Status - Relation Status Age at Father Level of Service:69337 [place] OFFICE/OUTPATIENT ESTABLISHED [facility] 30 MIN Reason for Visit and Comments: Follow-up [254457] Normal [facility] PSA TOTAL (DIAGNOSTIC POST-P ROSTATECTOMY)on 06-04-2025 PROSTATE SPECIFIC AG TOTAL 7.253 ng/mL High <=0.200 [facility] Comment on above: Result Comment: YANETH Ding COMMENTS: Testing performed on the [employer] using a two-step chemiluminescent microparticle immunoassay method. Results obtained by different methods should not be used interchangeably. A prostate specific antigen of >0.2 ng/mL is considered as initial evidence of biochemical recurrence following radical prostatectomy. Performed By: #### L [id number] ####Furniture Assembly Supervisor: DEEPALI DOWLING ([phone])[facility] ([facility])[address] [place] [address] Progress Noteon 06-04-2025 Progress Note Patient here to see Dr. Urias 1-Lav, 2-5ml SST drawn from R arm, 1 stick. Labs sent to [facility]. [facility] Progress Note Patient ID: Izabela London is a 85 y.o. male. HPI Tolerating Zytiga well. No hot flashes. he has the following oncology history 1. 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 2. S/p REPOCH chemotherapy with IT methotrexate. IT MTX started with cycle 3 and was given on day [address] scan post treatment and BMBx showed no evidence of disease hence CR. 4. Metastatic prostate cancer diagnosed Oct 2019. Metastatic sites involve bone. Under the care of Dr. Sarmiento and was getting GnRH agonist. Initially he got Lupron and then was started on Zoladex. 5. Due to rising PSA in spite of low testosterone, started on Xtandi 160 mg p.o. daily March 2021. 6. Progression of disease March 2025. Started on Zytiga 1000 mg p.o. daily plus prednisone. Review of Systems - Oncology No nausea, vomiting, diarrhea, fever, night sweats, chills, cough, shortness of breath, chest pain BSA: 2.15 meters squared BP 138/77 Pulse 79 Temp 36.3 ?C (97.3 ?F) (Temporal) Ht 1.778 m (5' 10) Wt 93.4 kg (206 lb) SpO2 98% BMI 29.56 kg/m? Physical Exam No lymphadenopathy or hepatosplenomegaly. No lower extremity edema. Lab Results Component Value Date WBC 9.1 04/09/2025 HGB 13.9 04/09/2025 HCT 43.5 04/09/2025 MCV 101.9 (H) 04/09/2025 PLT 237 04/09/2025 Lab Results Component Value Date GLUCOSE 101 05/10/2025 CALCIUM 9.9 05/10/2025 NA 138 05/10/2025 K 4.1 05/10/2025 CO2 28 05/10/2025 CL 103 05/10/2025 BUN 21 05/10/2025 CREATININE 0.66 (L) 05/10/2025 PSA Total (Diagnostic Post-Prostatectomy) Order: [id number] Status: Final result Next appt: 08/02/2025 at 11:00 AM in Infusion Therapy (CHAIR 19) Dx: Malignant neoplasm metastatic to bone... Test Result Released: Yes (seen) 0 Result Notes Component Ref Range & Units 1 mo ago 3 mo ago 6 mo ago 9 mo ago PSA Total <=0.200 ng/mL 9.250 High 8.814 High 5.100 High 1.608 R Resulting Agency [facility] Assessment/Plan he appears to be in complete remission from Burkitt's Lymphoma standpoint. 2. Metastatic prostate cancer to the bones continue Zytiga 1000 mg p.o. daily plus prednisone 5 mg p.o. twice daily Discussed some of the side effects that include hot flashes, hypertension, hypokalemia among others. He will get formal teaching for the above. PSA relatively steady since starting Zytiga continue Zoladex 10.8mg depot every 12 weeks Discussed some of the side effects that include hot flashes, back pain, very low risk of seizures among others. We will touch base after bone scan and proceed accordingly. Median duration of response with xtandi is 15 months Continue Zometa every 12 weeks. I did discuss risk of osteonecrosis of the jaw which is 1 to 2% in patients receiving Zometa 3. Follow-up in 2 months. Check CBC, CMP and PSA at that visit. Follow-up labs from today 4. Patient verbalizes understanding and agrees with the plan. There are no diagnoses linked to this encounter. Plan as of 06/04/25 Electronically signed Kristen Urias MD Normal [facility] COMPREHENSIVE METABOLIC PANE Barrie 05-10-2025 Albumin [Mass/Vol] 3.6 g/dL Normal 3.4-4.8 [facility] Comment on above: Performed By: #### L [id number] ####Furniture Assembly Supervisor: DEEPALI DOWLING ([phone])[address] ALP [Catalytic activity/Vol] 62 U/L Normal 40-150 [facility] Comment on above: Performed By: #### L [id number] ####Furniture Assembly Supervisor: DEEPALI DOWLING ([phone])[facility])[address] [place] [address] ALT [Catalytic activity/Vol] 125 U/L High <40 [facility] Comment on above: Performed By: #### L [id number] ####Furniture Assembly Supervisor: DEEPALI DOWLING ([phone])[facility])[address] [place] [address] Anion gap [Moles/Vol] 7 mmol/L Normal 3-13 [facility] Comment on above: Performed By: #### L [id number] ####Furniture Assembly Supervisor: DEEPALI DOWLING ([phone])[facility] ([facility])[address] [place] [address] AST [Catalytic activity/Vol] 81 U/L High <34 [facility] Comment on above: Performed By: #### L [id number] ####Furniture Assembly Supervisor: DEEPALI DOWLING ([phone])[facility] ([facility])[address] [place] [address] [place] Bilirubin [Mass/Vol] 0.7 mg/dL Normal <1.2 [facility] Comment on above: Performed By: #### L [id number] ####Furniture Assembly Supervisor: DEEPALI DOWLING ([phone])[facility] ([facility])[address] [place] [address] Calcium [Mass/Vol] 9.9 mg/dL Normal 8.8-10.0 [facility] Comment on above: Performed By: #### L [id number] ####Furniture Assembly Supervisor: DEEPALI DOWLING ([phone])[facility] ([facility])[address] [place] [address] [place] Chloride [Moles/Vol] 103 mmol/L Normal 98-107 [facility] Comment on above: Performed By: #### L [id number] ####Furniture Assembly Supervisor: DEEPALI DOWLING ([phone])[facility] ([facility])[address] [place] [address] [place] CO2 [Moles/Vol] 28 mmol/L Normal 23-31 [facility] Comment on above: Performed By: #### L [id number] ####Furniture Assembly Supervisor: DEEPALI DOWLING ([phone])[facility] ([facility])[address] [place] [address] [place] Creatinine [Mass/Vol] 0.66 mg/dL Low 0.72-1.25 [facility] Comment on above: Performed By: #### L [id number] ####Furniture Assembly Supervisor: DEEPALI DOWLING ([phone])[facility] ([facility])[address] [place] [address] [place] GLOMERULAR FILTRATION RATE ML/MIN/1.73 SQ M.PREDICTED >90.0 Normal >60.0 [facility] Comment on above: Result Comment: Calc ulation based on the Chronic Kidney Disease Epidemiology Collaboration (CKD-EPI) equation refit without adjustment for race Performed By: #### L [id number] ####Furniture Assembly Supervisor: DEEPALI DOWLING ([phone])[facility])[address] [place] [address] Glucose [Mass/Vol] 101 mg/dL Normal 82-115 [facility] Comment on above: Performed By: #### L [id number] ####Furniture Assembly Supervisor: DEEPALI DOWLING ([phone])[facility])[address] [place] [address] Potassium [Moles/Vol] 4.1 mmol/L Normal 3.5-5.1 [facility] Comment on above: Result Comment: Plas ma potassium values may be up to 0.5 mmol/L lower than serum values. Performed By: #### L [id number] ####Furniture Assembly Supervisor: DEEPALI DOWLING ([phone])[facility])[address] [place] [address] Protein [Mass/Vol] 6.9 g/dL Normal 6.4-8.3 [facility] Comment on above: Performed By: #### L [id number] ####Furniture Assembly Supervisor: DEEPALI DOWLING ([phone])[facility])[address] [place] [address] [place] Sodium [Moles/Vol] 138 mmol/L Normal 136-145 [facility] Comment on above: Performed By: #### L [id number] ####Furniture Assembly Supervisor: DEEPALI DOWLING ([phone])[facility])[address] [place] [address] [place] Urea nitrogen [Mass/Vol] 21 mg/dL Normal 9-23 [facility] Comment on above: Performed By: #### L [id number] ####Furniture Assembly Supervisor: DEEPALI DOWLING ([phone])[facility])[address] [place] [address] Comprehensive metabolic 1998 panelon 05-10-2025 Albumin [Mass/Vol] 3.6 g/dL 3.4 - 4.8 g/dL [facility] ALP [Catalytic activity/Vol] 62 U/L 40 - 150 U/L [facility] ALT [Catalytic activity/Vol] 125 U/L High [facility]ARY[facility] - 40 U/L [facility] Anion gap [Moles/Vol] 7 mmol/L 3 - 13 mmol/L [facility] AST [Catalytic activity/Vol] 81 U/L High NINF - 34 U/L [facility] Bilirubin [Mass/Vol] 0.7 mg/dL NINF - 1.2 mg/dL [facility] Calcium [Mass/Vol] 9.9 mg/dL 8.8 - 10. 0 mg/dL [facility] Chloride [Moles/Vol] 103 mmol/L 98 - 107 mmol/L [facility] CO2 [Moles/Vol] 28 mmol/L 23 - 31 mmol/L [facility] Creatinine [Mass/Vol] 0.66 mg/dL Low 0.72 - 1.25 mg/dL [facility] GFR/1.73 sq M.predicted (S/P/Bld) [Vol rate/Area] - PINF [facility] Comment on above: Calculation based on the Chronic Kidney Disease Epidemiology Collaboration (CKD-EPI) equation refit without adjustment for race Glucose [Mass/Vol] 101 mg/dL 82 - 115 mg/dL [facility] Interpretation and review of laboratory results Abnormal [facility] Potassium [Moles/Vol] 4.1 mmol/L 3.5 - 5.1 mmol/L [facility] Comment on above: Plasma potassium carissa ues may be up to 0.5 mmol/L lower than serum values. Protein [Mass/Vol] 6.9 g/dL 6.4 - 8.3 g/dL [facility] Sodium [Moles/Vol] 138 mmol/L 136 - 145 mmol/L [facility] Urea nitrogen [Mass/Vol] 21 mg/dL 9 - 23 mg/dL [facility] Progress Noteon 05-10-2025 Progress Note Patient arrived ambulatory for Zometa infusion and Zoladex injection. Patient denies any new or worsening symptoms today. Patient continues to have ankle swelling bilaterally but denies worsening at this time. See toxicity assessment. Patient requests ice pack to numb abdomen prior to Zoladex injection instead of Lidocaine. PIV placed in R AC and [facility] study collected and sent to [facility]. POC reviewed and patient verbalized understanding. Patient has no further questions at this time. Patient tolerated injection with no noted complications. Given in RLQ of abdomen. Site bleeding, gauze placed on site. LFTs noted to be elevated today, Dr. Urias notified. Patient tolerated Zometa injection with no noted complications. PIV removed intact and site benign. Patient verbalized understanding of discharge plan and follow-up care. Patient discharged home ambulatory with . [facility] 36on 05-09-2025 36 S: Patient spoke wit h [facility] nurse regarding neck pain B: Onset of symptoms/concern a couple of days or maybe Wednesday of last week A: Patient reports right side neck pain which is severe. Intermittent pain that garibay. Mostly in the neck but sometimes goes across shoulder blade. Been taking tylenol and using heat- unsure if it's helping. Never had neck pain like this previously. Denies injuries, headache, chest pain, difficulty breathing, or fever. Pain doesn't radiate down arms. R: Discussed no same day openings today. Would suggest going to Urgent Care today to be seen and evaluated. Patient agreeable, unsure which UC he will go to. Discussed continue heat, tylenol and gently stretching. Patient understands care advice. No further needs at this time. Patient instructed to call back with new/worsening symptoms, concerns or questions. Reason for Disposition SEVERE pain (e.g., excruciating, unable to do any normal activities) Protocols used: Neck Pain or [id number] [facility] CBC W Auto Differential pane l (Bld)on 04-09-2025 Basophils (Bld) [#/Vol] 0 10*3/uL 0.0 - 0.2 10*3/uL [employer] Basophils/100 WBC (Bld) 0.4 % 0.0 - 2.0 % [employer] Eosinophils (Bld) [#/Vol] 0.1 10*3/uL 0.0 - 0.5 10*3/uL [employer] [facility] Eosinophils/100 WBC (Bld) 0.7 % 0.0 - 6.0 % [employer] [facility] Erythrocyte distribution width (RBC) [Ratio] 13.4 % 11.5 - 15.0 % [employer] [facility] Hematocrit (Bld) [Volume fraction] 43.5 % 40.0 - 52.0 % [facility] Hemoglobin (Bld) [Mass/Vol] 13.9 g/dL 13.0 - 18.0 g/dL [facility] Immature granulocytes (Bld) [#/Vol] 0 10*3/uL NINF - 0.1 10*3/uL [facility] Immature granulocytes/100 WBC (Bld) 0.4 % 0.0 - 2.0 % [facility] Interpretation and review of laboratory results Abnormal [facility] Lymphocytes (Bld) [#/Vol] 1.5 10*3/uL 1.0 - 4.3 10*3/uL [facility] Lymphocytes/100 WBC (Bld) 16 % 15.0 - 45.0 % [facility] MCH (RBC) [Entitic mass] 32.6 pg 26.0 - 34.0 pg [facility] MCHC (RBC) [Mass/Vol] 32 % 30.5 - 36.0 % [facility] MCV (RBC) [Entitic vol] 101.9 fL High 77.0 - 99.0 fL [facility] Monocytes (Bld) [#/Vol] 0.7 10*3/uL 0.0 - 0.9 10*3/uL [facility] Monocytes/100 WBC (Bld) 7.9 % 5.0 - 13.0 % [facility] Neutrophils (Bld) [#/Vol] 6.8 10*3/uL 1.8 - 7.5 10*3/uL [facility] Neutrophils/100 WBC (Bld) 74.6 % 38.0 - 82.0 % [facility] Nucleated RBC/100 WBC (Bld) [Ratio] 0 % [facility] Platelet mean volume (Bld) [Entitic vol] 10.8 fL 9.0 - 12.7 fL [facility] Platelets (Bld) [#/Vol] 237 10*3/uL 140 - 440 10*3/uL [facility] RBC (Bld) [#/Vol] 4.27 10*6/uL Low 4.40 - 5.9 0 10*6/uL [facility] WBC (Bld) [#/Vol] 9.1 10*3/uL 3.6 - 10.7 10*3/uL [facility] CBC WITH AUTO DIFFERENTIALon 04-09-2025 Basophils (Bld) [#/Vol] 0.0 10*3/uL Normal 0.0-0.2 [facility] Comment on above: Performed By: #### L [id number] ####[employer]urniture [employer] Supervisor: DEEPALI DOWLING ([phone])[facility])[address] [place] [address] Basophils/100 WBC (Bld) 0.4 % Normal 0.0-2.0 [facility] Comment on above: Performed By: #### L [id number] ####[employer] Supervisor: DEEPALI DOWLING ([phone])[facility])[address] [place] [address] Eosinophils (Bld) [#/Vol] 0.1 10*3/uL Normal 0.0-0.5 [facility] Comment on above: Performed By: #### L [id number] ####F[employer]iture [employer] Supervisor: DEEPALI DOWLING ([phone])[facility])[address] [place] [address] Eosinophils/100 WBC (Bld) 0.7 % Normal 0.0-6.0 [facility] Comment on above: Performed By: #### L [id number] ####Furniture Assembly Supervisor: DEEPALI DOWLING ([phone])[facility])[address] [place] [address] Erythrocyte distribution width (RBC) [Ratio] 13.4 % Normal 11.5-15.0 [facility] Comment on above: Performed By: #### L [id number] ####Furniture Assembly Supervisor: DEEPALI DOWLING ([phone])[facility])[address] [place] [address] Hematocrit (Bld) [Volume fraction] 43.5 % Normal 40.0-52.0 [facility] Comment on above: Performed By: #### L [id number] ####Furniture Assembly Supervisor: DEEPALI DOWLING ([phone])[facility])[address] [place] [address] Hemoglobin (Bld) [Mass/Vol] 13.9 g/dL Normal 13.0-18.0 [facility] Comment on above: Performed By: #### L [id number] ####Furniture Assembly Supervisor: DEEPALI DOWLING ([phone])[facility])[address] [place] [address] IMMATURE GRANS % 0.4 % Normal 0.0-2.0 [facility] Comment on above: Performed By: #### L [id number] ####Furniture Assembly Supervisor: DEEPALI DOWLING ([phone])[facility])[address] [place] [address] IMMATURE GRANS ABSOLUTE 0.0 10*3/uL Normal <0.1 [facility] Comment on above: Performed By: #### L [id number] ####Furniture Assembly Supervisor: DEEPALI DOWLING ([phone])[address] Lymphocytes (Bld) [#/Vol] 1.5 10*3/uL Normal 1.0-4.3 [facility] Comment on above: Performed By: #### L [id number] ####Furniture Assembly Supervisor: DEEPALI DOWLING ([phone])[address] Lymphocytes/100 WBC (Bld) 16.0 % Normal 15.0-45.0 [facility] Comment on above: Performed By: #### L [id number] ####Furniture Assembly Supervisor: DEEPALI DOWLING ([phone])[address] MCH (RBC) [Entitic mass] 32.6 pg Normal 26.0-34.0 [facility] Comment on above: Performed By: #### L [id number] ####Furniture Assembly Supervisor: DEEPALI DOWLING ([phone])[address] MCHC 32.0 % Normal 30.5-36.0 [facility] Comment on above: Performed By: #### L [id number] ####Furniture Assembly Supervisor: DEEPALI DOWLING ([phone])[facility] ([facility])[address] [place] [address] MCV (RBC) [Entitic vol] 101.9 fL High 77.0-99.0 [facility] Comment on above: Performed By: #### L [id number] ####Furniture Assembly Supervisor: DEEPALI DOWLING ([phone])[facility] ([facility])[address] [place] [address] Monocytes (Bld) [#/Vol] 0.7 10*3/uL Normal 0.0-0.9 [facility] Comment on above: Performed By: #### L [id number] ####Furniture Assembly Supervisor: DEEPALI DOWLING ([phone])[facility] ([facility])[address] [place] [address] Monocytes/100 WBC (Bld) 7.9 % Normal 5.0-13.0 [facility] Comment on above: Performed By: #### L [id number] ####Furniture Assembly Supervisor: DEEPALI DOWLING ([phone])[facility] ([facility])[address] [place] [address] NEUTROPHILS ABSOLUTE 6.8 10*3/uL Normal 1.8-7.5 [facility] Comment on above: Performed By: #### L [id number] ####Furniture Assembly Supervisor: DEEPALI DOWLING ([phone])[facility] ([facility])[address] [place] [address] Neutrophils/100 WBC (Bld) 74.6 % Normal 38.0-82.0 [facility] Comment on above: Performed By: #### L [id number] ####Furniture Assembly Supervisor: DEEPALI DOWLING ([phone])[facility] ([facility])[address] [place] [address] NRBC 0.0 /100 WBCs Normal 0.0-2.0 [facility] Comment on above: Performed By: #### L [id number] ####Furniture Assembly Supervisor: DEEPALI DOWLING ([phone])[facility] ([facility])[address] [place] [address] Platelet mean volume (Bld) [Entitic vol] 10.8 fL Normal 9.0-12.7 [facility] Comment on above: Performed By: #### L [id number] ####Furniture Assembly Supervisor: DEEPALI DOWLING ([phone])[facility] ([facility])[address] [place] [address] Platelets (Bld) [#/Vol] 237 10*3/uL Normal 140-440 [facility] Comment on above: Performed By: #### L [id number] ####Furniture Assembly Supervisor: DEEPALI DOWLING ([phone])[facility] ([facility])[address] [place] [address] RBC (Bld) [#/Vol] 4.27 10*6/uL Low 4.40-5.90 [facility] Comment on above: Performed By: #### L [id number] ####Furniture Assembly Supervisor: DEEPALI DOWLING ([phone])[facility] ([facility])[address] [place] [address] WBC (Bld) [#/Vol] 9.1 10*3/uL Normal 3.6-10.7 [facility] Comment on above: Performed By: #### L [id number] ####Furniture Assembly Supervisor: DEEPALI DOWLING ([phone])[facility] ([facility])[address] [place] [address] COMPREHENSIVE METABOLIC PANE [place] 04-09-2025 Albumin [Mass/Vol] 3.6 g/dL Normal 3.4-4.8 [facility] Comment on above: Performed By: #### L [id number] ####Furniture Assembly Supervisor: DEEPALI DOWLING ([phone])[facility] ([facility])[address] [place] [address] [place] ALP [Catalytic activity/Vol] 56 U/L Normal 40-150 [facility] Comment on above: Performed By: #### L [id number] ####Furniture Assembly Supervisor: DEEPALI DOWLING ([phone])[facility] ([facility])[address] [place] [address] ALT [Catalytic activity/Vol] 57 U/L High <40 [facility] Comment on above: Performed By: #### L [id number] ####Furniture Assembly Supervisor: DEEPALI DOWLING ([phone])[facility] ([facility])[address] [place] [address] Anion gap [Moles/Vol] 9 mmol/L Normal 3-13 [facility] Comment on above: Performed By: #### L [id number] ####Furniture Assembly Supervisor: DEEPALI DOWLING ([phone])[facility] ([facility])[address] [place] [address] AST [Catalytic activity/Vol] 46 U/L High <34 [facility] Comment on above: Performed By: #### L [id number] ####Furniture Assembly Supervisor: DEEPALI DOWLING ([phone])[facility] ([facility])[address] [place] [address] Bilirubin [Mass/Vol] 1.0 mg/dL Normal <1.2 [facility] Comment on above: Performed By: #### L [id number] ####Furniture Assembly Supervisor: DEEPALI DOWLING ([phone])[facility] ([facility])[address] [place] [address] Calcium [Mass/Vol] 9.1 mg/dL Normal 8.8-10.0 [facility] Comment on above: Performed By: #### L [id number] ####Furniture Assembly Supervisor: DEEPALI DOWLING ([phone])[facility] ([facility])[address] [place] [address] [place] Chloride [Moles/Vol] 105 mmol/L Normal 98-107 [facility] Comment on above: Performed By: #### L [id number] ####Furniture Assembly Supervisor: DEEPALI DOWLING ([phone])[facility] ([facility])[address] [place] [address] [place] CO2 [Moles/Vol] 28 mmol/L Normal 23-31 [facility] Comment on above: Performed By: #### L [id number] ####Furniture Assembly Supervisor: DEEPALI DOWLING ([phone])[facility] ([facility])[address] [place] [address] [place] Creatinine [Mass/Vol] 0.62 mg/dL Low 0.72-1.25 [facility] Comment on above: Performed By: #### L [id number] ####Furniture Assembly Supervisor: DEEPALI DOWLING ([phone])[address] GLOMERULAR FILTRATION RATE ML/MIN/1.73 SQ M.PREDICTED >90.0 Normal >60.0 [facility] Comment on above: Result Comment: Calc ulation based on the Chronic Kidney Disease Epidemiology Collaboration (CKD-EPI) equation refit without adjustment for race Performed By: #### L [id number] ####Furniture Assembly Supervisor: DEEPALI DOWLING ([phone])[address] Glucose [Mass/Vol] 95 mg/dL Normal 82-115 [facility] Comment on above: Performed By: #### L [id number] ####Furniture Assembly Supervisor: DEEPALI DOWLING ([phone])[address] Potassium [Moles/Vol] 4.3 mmol/L Normal 3.5-5.1 [facility] Comment on above: Result Comment: Plas ma potassium values may be up to 0.5 mmol/L lower than serum values. Performed By: #### L [id number] ####Furniture Assembly Supervisor: DEEPALI DOWLING ([phone])[address] Protein [Mass/Vol] 6.4 g/dL Normal 6.4-8.3 [facility] Comment on above: Performed By: #### L [id number] ####Furniture Assembly Supervisor: DEEPALI DOWLING ([phone])[place] [address] [place] Sodium [Moles/Vol] 142 mmol/L Normal 136-145 [facility] Comment on above: Performed By: #### L [id number] ####Furniture Assembly Supervisor: DEEPALI DOWLING ([phone])[place] [address] [place] Urea nitrogen [Mass/Vol] 16 mg/dL Normal 9-23 [facility] Comment on above: Performed By: #### L [id number] ####Furniture Assembly Supervisor: DEEPALI DOWLING ([phone])[facility] ([facility])[address] [place] [address] Comprehensive metabolic 1998 panelon 04-09-2025 Albumin [Mass/Vol] 3.6 g/dL 3.4 - 4.8 g/dL [facility] ALP [Catalytic activity/Vol] 56 U/L 40 - 150 U/L [facility] ALT [Catalytic activity/Vol] 57 U/L High NINF - 40 U/L [facility] Anion gap [Moles/Vol] 9 mmol/L 3 - 13 mmol/L [facility] AST [Catalytic activity/Vol] 46 U/L High NINF - 34 U/L [facility] Bilirubin [Mass/Vol] 1 mg/dL NINF - 1.2 mg/dL [facility] Calcium [Mass/Vol] 9.1 mg/dL 8.8 - 10. 0 mg/dL [facility] Chloride [Moles/Vol] 105 mmol/L 98 - 107 mmol/L [facility] CO2 [Moles/Vol] 28 mmol/L 23 - 31 mmol/L [facility] Creatinine [Mass/Vol] 0.62 mg/dL Low 0.72 - 1.25 mg/dL [facility] GFR/1.73 sq M.predicted (S/P/Bld) [Vol rate/Area] - PINF [facility] Comment on above: Calculation based on the Chronic Kidney Disease Epidemiology Collaboration (CKD-EPI) equation refit without adjustment for race Glucose [Mass/Vol] 95 mg/dL 82 - 115 mg/dL [facility] Interpretation and review of laboratory results Abnormal [facility] Potassium [Moles/Vol] 4.3 mmol/L 3.5 - 5.1 mmol/L [facility] Comment on above: Plasma potassium carissa ues may be up to 0.5 mmol/L lower than serum values. Protein [Mass/Vol] 6.4 g/dL 6.4 - 8.3 g/dL [facility] Sodium [Moles/Vol] 142 mmol/L 136 - 145 mmol/L [facility] Urea nitrogen [Mass/Vol] 16 mg/dL 9 - 23 mg/dL [facility] Laboratory - Chemistry and C hemistry - challengeon 04-09-2025 Prostate specific Ag [Mass/Vol] 9.25 ng/mL High NINF - 0.200 ng/mL [facility] No Panel Informationon 04-09 Interpretation and review of laboratory results Abnormal [facility] Testing performed on the [employer] using a two-step chemiluminescent microparticle immunoassay method. Results obtained by different methods should not be used interchangeably. A prostate specific antigen of >0.2 ng/mL is considered as initial evidence of biochemical recurrence following radical prostatectomy. [facility] Office Visiton 04-09-2025 Follow-up visit [id number] Izabela London 1940 M Date Provider Department Center 04/09/2025 [id number] URIAS [facility] None Family History Problem Relation Age of Onset Cancer Father 77 Comments: Colon Family Status - Relation Status Age at Father Level of Service:20028 [place] OFFICE/OUTPATIENT ESTABLISHED [facility] 30 MIN Reason for Visit and Comments: Follow-up [259691] Normal [facility] PSA TOTAL (DIAGNOSTIC POST-P ROSTATECTOMY)on 04-09-2025 PROSTATE SPECIFIC AG TOTAL 9.250 ng/mL High <=0.200 [facility] Comment on above: Result Comment: YANETH Ding COMMENTS: Testing performed on the [employer] using a two-step chemiluminescent microparticle immunoassay method. Results obtained by different methods should not be used interchangeably. A prostate specific antigen of >0.2 ng/mL is considered as initial evidence of biochemical recurrence following radical prostatectomy. Performed By: #### L [id number] ####Furniture Assembly Supervisor: DEEPALI DOWLING ([phone])[facility] ([facility])[address] [place] [address] Progress Noteon 04-09-2025 Progress Note Patient seen by Dr Urias Labs drawn 1 stick left arm 1 lav 2 sst All labs sent to [facility] Progress Note Patient ID: Izabela London is a 85 y.o. male. HPI Tolerating Zytiga well. No hot flashes. he has the following oncology history 1. 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 2. S/p REPOCH chemotherapy with IT methotrexate. IT MTX started with cycle 3 and was given on day [address] scan post treatment and BMBx showed no evidence of disease hence CR. 4. Metastatic prostate cancer diagnosed Oct 2019. Metastatic sites involve bone. Under the care of Dr. Sarmiento and was getting GnRH agonist. Initially he got Lupron and then was started on Zoladex. 5. Due to rising PSA in spite of low testosterone, started on Xtandi 160 mg p.o. daily March 2021. Review of Systems - Oncology No nausea, vomiting, diarrhea, fever, night sweats, chills, cough, shortness of breath, chest pain BSA: 2.12 meters squared BP 131/70 Pulse 58 Temp 36.4 ?C (97.5 ?F) (Temporal) Ht 1.803 m (5' 10.98) Wt 89.9 kg (198 lb 4.8 oz) SpO2 98% BMI 27.67 kg/m? Physical Exam No lymphadenopathy or hepatosplenomegaly. No lower extremity edema. Lab Results Component Value Date WBC 8.4 02/13/2025 HGB 14.0 02/13/2025 HCT 41.5 02/13/2025 MCV 96.1 02/13/2025 PLT 219 02/13/2025 Lab Results Component Value Date GLUCOSE 105 02/13/2025 CALCIUM 9.2 02/13/2025 NA 136 02/13/2025 K 4.2 02/13/2025 CO2 21 (L) 02/13/2025 CL 106 02/13/2025 BUN 19 02/13/2025 CREATININE 0.63 (L) 02/13/2025 PSA 02/13/2025: 8.8 Assessment/Plan he appears to be in complete remission from Burkitt's Lymphoma standpoint. 2. Metastatic prostate cancer to the bones continue Zytiga 1000 mg p.o. daily plus prednisone 5 mg p.o. twice daily Discussed some of the side effects that include hot flashes, hypertension, hypokalemia among others. He will get formal teaching for the above. continue Zoladex 10.8mg depot every 12 weeks Discussed some of the side effects that include hot flashes, back pain, very low risk of seizures among others. We will touch base after bone scan and proceed accordingly. Median duration of response with xtandi is 15 months Continue Zometa every 12 weeks. I did discuss risk of osteonecrosis of the jaw which is 1 to 2% in patients receiving Zometa 3. Follow-up in 2 months. Check CBC, CMP and PSA at that visit. Follow-up labs from today 4. Patient verbalizes understanding and agrees with the plan. There are no diagnoses linked to this encounter. Plan as of 04/09/25 Electronically signed Kristen Urias MD I spent total time 45 minutes reviewing previous notes, test results, and face to face with the patient discussing the diagnosis and importance of compliance with the treatment plan as well as documenting on the day of the visit. Normal [facility] 3604-02-2025 36 [facility] Oncology Care Plan Abiraterone Acetate 250 MG Pharmacy Recommendations/Educati on/Other I spoke with Izabela today regarding abiraterone + prednisone. He reports that he is doing well. Denies all side effects or concerns. No missed doses reported. Continuation of therapy is appropriate. Delivery scheduled for 04/04/25. F/U ~ 1 month or as clinically indicated Bhanu Diaz PharmD, [facility] Clinical Specialty Pharmacist [facility] 03-16-[address] [place] [address] Pharmacy Oncology Care Plan Abiraterone Acetate 250 MG Pharmacy Recommendations/Educati on/Other I spoke with Izabela today regarding abiraterone + prednisone. He reports that he is doing well. Denies all side effects or concerns. No missed doses reported. Continuation of therapy is appropriate. F/U ~ 2 weeks for refill & check-in Bhanu Diaz PharmD, [facility] Clinical Specialty Pharmacist [facility] 3603-06-[address] [place] [address] Pharmacy Oncology Care Plan SUBJECTIVE Izabela London is a 85 year old Male who was referred to [facility] for clinical management services for Abiraterone Acetate 250 MG. Diagnosis Malignant neoplasm of prostate C61 OBJECTIVE Medications: Abiraterone Acetate 250 MG TABS PO Ascorbic Acid 500 MG TABS PO Aspirin 81 MG CHEW PO Carvedilol 3.125 MG TABS PO Flomax 0.4 MG CAPS PO Lisinopril 10 MG TABS PO Os-Preeti Calcium + D3 500-200 MG-UNIT TABS PO PredniSONE 5 MG TABS PO Simvastatin 20 MG TABS PO Vitamin D3 5000 UNIT CAPS PO Supportive Medications: Blood Pressure Monitor for Abiraterone Acetate 250 MG GnRH Agent for Abiraterone Acetate 250 MG Prednisone for Abiraterone Acetate 250 MG Allergies: No Known Allergies Medical History & Comorbidities: Problem list has been reviewed in the EHR ASSESSMENT / PLAN Abiraterone Acetate 250 MG Expectations and Goals of therapy Counseled patient that goals of therapy include prostate cancer control, PSA suppression, and symptom management. Disease state education Counseled on general disease state management strategies. Emphasized the importance of consistent adherence to prescribed medication in order to achieve treatment goals. Administration Self administered at home oral medication. Patient will start abiraterone (Zytiga) take 4 tablets (1000mg) by mouth one time daily with prednisone 5mg by mouth twice daily. Patient understands that abiraterone dose is to be taken all at once, around the same time each day on an empty stomach (1 hour prior to or 2 hours after a meal). Prednisone is to be taken with breakfast and lunch to prevent insomnia and gastric upset side effects. Izabela understands and is comfortable with administration directions. No barriers to therapy identified. Storage/Disposal Store at 20?C to 25?C (68?F to 77?F). Store in a dry place. Keep medications in a safe place, out of reach of children and pets. Side effects Common side effects reviewed. For Abiraterone: fatigue, joint pain, edema, increased triglycerides, changes in liver function, elevated blood sugars, low potassium, decreased WBC, hot flashes, high blood pressure, nausea, constipation, and diarrhea. For Prednisone: insomnia, upset stomach, high blood pressure, elevated blood sugars, headache, mood swings, and water retention. Live vaccines should NOT be administered during chemotherapy or periods of significant immunosuppression. Patient aware of side effects. Educated that fatigue typically peaks around the 1-2 month joshua and starts to improve around the 3 month joshua. Has a BP cuff at home. Instructed him to check periodically and to call if BP > 180/90 . He voiced understanding. Contact Advised patient to contact pharmacy or provider with any concerns regarding side effects, questions regarding therapy, or any other situation where clinical oversight is necessary. Provided patient with direct number to clinical pharmacist for questions or concerns prior to scheduled follow up. The patient was oriented to the pharmacy?s services upon initial fill. Encouraged patient to participate in this plan of care by speaking with a pharmacist which is offered during each reassessment. Adherence Advised patient of the importance of taking this medication as prescribed and to avoid missing any doses. Counseled patient that if a dose is missed, the patient should not take the missed dose but should wait until the next day for the normal dose. Do not take 2 doses at the same time. Monitoring and follow up Reviewed therapy monitoring parameters and importance to maintain follow-up lab and provider visits. Labs to be monitored routinely for side effects and efficacy include LFTs and PSA. Pharmacy Recommendations/Educati on/Other Initiation of therapy is appropriate. Medications, allergies, health conditions, and appropriate vaccinations reviewed. No additional questions at this time. Patient is agreeable to care plan. [facility] will continue to manage clinical pharmacy services and coordinate refills/deliveries with the patient. Delivery is scheduled for 03/08/25. Planned start date 03/09/25. F/U 1 week after therapy start Bhanu Diaz, KevynD, [facility] Clinical Specialty Pharmacist [facility] Office Visiton 03-05-2025 Follow-up visit [id number] Izabela London 1940 M Date Provider Department Center 03/05/2025 [id number] URIAS [facility] ONC None Family History Problem Relation Age of Onset Cancer Father 77 Comments: Colon Family Status - Relation Status Age at Father Level of Service:57329 [place] OFFICE/OUTPATIENT ESTABLISHED HIGH MDM 40 MIN Reason for Visit and Comments: Follow-up [[id number]] [facility] Progress Noteon 03-05-2025 Progress Note Patient ID: Izabela London is a 85 y.o. male. HPI Tolerating Xtandi well. No hot flashes, seizures or back pain. he has the following oncology history 1. 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 2. S/p REPOCH chemotherapy with IT methotrexate. IT MTX started with cycle 3 and was given on day [address] scan post treatment and BMBx showed no evidence of disease hence CR. 4. Metastatic prostate cancer diagnosed Oct 2019. Metastatic sites involve bone. Under the care of Dr. Sarmiento and was getting GnRH agonist. Initially he got Lupron and then was started on Zoladex. 5. Due to rising PSA in spite of low testosterone, started on Xtandi 160 mg p.o. daily March 2021. Review of Systems - Oncology No nausea, vomiting, diarrhea, fever, night sweats, chills, cough, shortness of breath, chest pain BSA: 2.14 meters squared BP 138/70 Pulse 65 Temp 36.2 ?C (97.2 ?F) (Temporal) Ht 1.803 m (5' 10.98) Wt 91.1 kg (200 lb 14.4 oz) SpO2 98% BMI 28.04 kg/m? Physical Exam No lymphadenopathy or hepatosplenomegaly. No lower extremity edema. Lab Results Component Value Date WBC 8.4 02/13/2025 HGB 14.0 02/13/2025 HCT 41.5 02/13/2025 MCV 96.1 02/13/2025 PLT 219 02/13/2025 Lab Results Component Value Date GLUCOSE 105 02/13/2025 CALCIUM 9.2 02/13/2025 NA 136 02/13/2025 K 4.2 02/13/2025 CO2 21 (L) 02/13/2025 CL 106 02/13/2025 BUN 19 02/13/2025 CREATININE 0.63 (L) 02/13/2025 Bone scan IMPRESSION: INTERVAL DEVELOPMENT OF INCREASED ACTIVITY ATTENTION THORAX, LEFT AND RIGHT RIBS. IN THE GIVEN SETTING FOLLOW-UP OR FURTHER EVALUATION IS RECOMMENDED. CONSIDER FOLLOW-UP BONE SCAN IN 3-6 MONTHS, PSMA PET/CT. Report Dictated on Electronically Signed By: Izabela Rose MD Electronically Signed Date/Time: 02/23/2025 2:12 PM EDT Narrative Performed by: [facility] Testing performed on the [employer] using a two-step chemiluminescent microparticle immunoassay method. Results obtained by different methods should not be used interchangeably. A prostate specific antigen of >0.2 ng/mL is considered as initial evidence of biochemical recurrence following radical prostatectomy. Specimen Collected: 11/21/24 11:17 Result Notes 1 Follow-up Encounter Component Ref Range & Units 2 wk ago 3 mo ago 6 mo ago PSA Total <=0.200 ng/mL 8.814 High 5.100 High 1.608 R Resulting Agency SAC SAC SAC Narrative Performed by: [facility] Testing performed on the [employer] using a two-step chemiluminescent microparticle immunoassay method. Results obtained by different methods should not be used interchangeably. A prostate specific antigen of >0.2 ng/mL is considered as initial evidence of biochemical recurrence following radical prostatectomy. Specimen Collected: 02/13/25 11:15 Last Resulted: 02/13/25 12:07 Assessment/Plan he appears to be in complete remission from Burkitt's Lymphoma standpoint. 2. Rising PSA in the setting of GnRH agonist in spite of castrate levels of testosterone. Due to rising PSA and new lesions on bone scan-considered as progression of disease. DC Xtandi Start Zytiga 1000 mg p.o. daily plus prednisone 5 mg p.o. twice daily Discussed some of the side effects that include hot flashes, hypertension, hypokalemia among others. He will get formal teaching for the above. continue Zoladex 10.8mg depot every 12 weeks Discussed some of the side effects that include hot flashes, back pain, very low risk of seizures among others. We will touch base after bone scan and proceed accordingly. Median duration of response with xtandi is 15 months Continue Zometa every 12 weeks. I did discuss risk of osteonecrosis of the jaw which is 1 to 2% in patients receiving Zometa 3. Follow-up in 4 to 6 weeks. Check CBC, CMP and PSA at that visit. I have counseled him on diet and exercise. I have also mentioned to him about him being further down his journey of prostate cancer now that he has progression of disease with Xtandi. Thankfully, we still have Zytiga as an option. However after that it is mainly chemo or radioisotope therapy which is a little bit more challenging to tolerate than hormonal therapy. 4. Patient verbalizes understanding and agrees with the plan. There are no diagnoses linked to this encounter. Plan as of 03/05/15 Electronically signed Kristen Urias MD I spent total time 45 minutes reviewing previous notes, test results, and face to face with the patient discussing the diagnosis and importance of compliance with the treatment plan as well as documenting on the day of the visit. [facility] Progress Note Chemotherapy kendra g completed with patient and his Lori for Zytiga 1000 mg PO daily along with Prednisone 5 mg twice daily per Dr. Urias. Written information on Zytiga given to patient and discussed with him. Reviewed with patient to take the Zytiga at the same time every day on an empty stomach - at least 1 hour before a meal or 2 hours after a meal. Side effects including, but not limited to: nausea, hot flashes, bone/muscle pain, electrolyte imbalance, flu like symptoms, constipation, and etc discussed with patient and he voiced understanding. Reviewed with patient that the Zytiga will come from [facility] as he had been using for previous treatment. The pt would like the Prednisone to be sent to [facility] if possible as well. Discussed importance of adherence to oral chemotherapy. Reviewed barriers that could affect oral adherence, including financial, psychosocial and physical and have referred to appropriate supportive care service, if indicated. Will integrate specialty pharmacy services to also assist with oral chemotherapy management. Per Dr. Urias the pt is to continue with Zoladex and Zometa every 12 weeks. Next appt is 05/10/25. Reviewed with pt to stop taking the Xtandi per Dr. Urias. Patient agreed to proceed with treatment and signed consent form. Pt declined copy of consent form. [facility] 36on 02-14-2025 36 Called pt to review Dr. Urias's message as written with him. Pt agrees with plan and voiced understanding. Order for bone scan given to schedulers. [facility] 36 ----- Message from Kristen Urias MD sent at 02/14/2025 11:42 AM EDT ----- Please let him know PSA. I will order bone scan which we will need to schedule and have him follow-up after. Thanks ----- Message ----- From: DxNA Shell De Los Santos Sent: 02/13/2025 11:24 AM EDT To: Kristen Urias MD [facility] 29on 02-13-2025 29 Addended by: KRISTEN URIAS on: 02/14/2025 11:44 AM Modules accepted: Orders [facility] CBC W Auto Differential pane l (Bld)on 02-13-2025 Basophils (Bld) [#/Vol] 0.1 10*3/uL 0.0 - 0.2 10*3/uL [facility] Basophils/100 WBC (Bld) 0.6 % 0.0 - 2.0 % [facility] Eosinophils (Bld) [#/Vol] 0.2 10*3/uL 0.0 - 0.5 10*3/uL [facility] Eosinophils/100 WBC (Bld) 2.3 % 0.0 - 6.0 % [facility] Erythrocyte distribution width (RBC) [Ratio] 13.1 % 11.5 - 15.0 % [facility] Hematocrit (Bld) [Volume fraction] 41.5 % 40.0 - 52.0 % [facility] Hemoglobin (Bld) [Mass/Vol] 14 g/dL 13.0 - 18.0 g/dL [facility] Immature granulocytes (Bld) [#/Vol] 0 10*3/uL NINF - 0.1 10*3/uL [facility] Immature granulocytes/100 WBC (Bld) 0.2 % 0.0 - 2.0 % [facility] Interpretation and review of laboratory results Abnormal [facility] Lymphocytes (Bld) [#/Vol] 2.3 10*3/uL 1.0 - 4.3 10*3/uL [facility] Lymphocytes/100 WBC (Bld) 27.2 % 15.0 - 45.0 % [facility] MCH (RBC) [Entitic mass] 32.4 pg 26.0 - 34.0 pg [facility] MCHC (RBC) [Mass/Vol] 33.7 % 30.5 - 36.0 % [facility] MCV (RBC) [Entitic vol] 96.1 fL 77.0 - 99.0 fL [facility] Monocytes (Bld) [#/Vol] 0.8 10*3/uL 0.0 - 0.9 10*3/uL [facility] Monocytes/100 WBC (Bld) 9.6 % 5.0 - 13.0 % [facility] Neutrophils (Bld) [#/Vol] 5.1 10*3/uL 1.8 - 7.5 10*3/uL [facility] Neutrophils/100 WBC (Bld) 60.1 % 38.0 - 82.0 % [facility] Nucleated RBC/100 WBC (Bld) [Ratio] 0 % [facility] Platelet mean volume (Bld) [Entitic vol] 10 fL 9.0 - 12.7 fL [facility] Platelets (Bld) [#/Vol] 219 10*3/uL 140 - 440 10*3/uL [facility] RBC (Bld) [#/Vol] 4.32 10*6/uL Low 4.40 - 5.9 0 10*6/uL [facility] WBC (Bld) [#/Vol] 8.4 10*3/uL 3.6 - 10.7 10*3/uL [facility] CBC WITH AUTO DIFFERENTIALon 02-13-2025 Basophils (Bld) [#/Vol] 0.1 10*3/uL Normal 0.0-0.2 [facility] Comment on above: Performed By: #### L [id number] ####Furniture Assembly Supervisor: DEEPALI DOWLING ([phone])[facility])[address] [place] [address] Basophils/100 WBC (Bld) 0.6 % Normal 0.0-2.0 [facility] Comment on above: Performed By: #### L [id number] ####Furniture Assembly Supervisor: DEEPALI DOWLING ([phone])[facility] ([facility])[address] [place] [address] [place] Eosinophils (Bld) [#/Vol] 0.2 10*3/uL Normal 0.0-0.5 [facility] Comment on above: Performed By: #### L [id number] ####Furniture Assembly Supervisor: DEEPALI DOWLING ([phone])[facility] ([facility])[address] [place] [address] [place] Eosinophils/100 WBC (Bld) 2.3 % Normal 0.0-6.0 [facility] Comment on above: Performed By: #### L [id number] ####Furniture Assembly Supervisor: DEEPALI DOWLING ([phone])[facility] ([facility])[address] [place] [address] [place] Erythrocyte distribution width (RBC) [Ratio] 13.1 % Normal 11.5-15.0 [facility] Comment on above: Performed By: #### L [id number] ####Furniture Assembly Supervisor: DEEPALI [id number])[facility] [address] Hematocrit (Bld) [Volume fraction] 41.5 % Normal 40.0-52.0 [facility] Comment on above: Performed By: #### L [id number] ####Furniture Assembly Supervisor: DEEPALI DOWLING ([phone])[facility])[address] [place] [address] Hemoglobin (Bld) [Mass/Vol] 14.0 g/dL Normal 13.0-18.0 [facility] Comment on above: Performed By: #### L [id number] ####Furniture Assembly Supervisor: DEEPALI DOWLING ([phone])[facility])[address] [place] [address] IMMATURE GRANS % 0.2 % Normal 0.0-2.0 [facility] Comment on above: Performed By: #### L [id number] ####Furniture Assembly Supervisor: DEEPALI DOWLING ([phone])[facility])[address] [place] [address] IMMATURE GRANS ABSOLUTE 0.0 10*3/uL Normal <0.1 [facility] Comment on above: Performed By: #### L [id number] ####Furniture Assembly Supervisor: DEEPALI DOWLING ([phone])[facility])[address] [place] [address] Lymphocytes (Bld) [#/Vol] 2.3 10*3/uL Normal 1.0-4.3 [facility] Comment on above: Performed By: #### L [id number] ####Furniture Assembly Supervisor: DEEPALI DOWLING ([phone])[facility])[address] [place] [address] Lymphocytes/100 WBC (Bld) 27.2 % Normal 15.0-45.0 [facility] Comment on above: Performed By: #### L [id number] ####Furniture Assembly Supervisor: DEEPALI DOWLING ([phone])[facility])[address] [place] [address] MCH (RBC) [Entitic mass] 32.4 pg Normal 26.0-34.0 [facility] Comment on above: Performed By: #### L [id number] ####Furniture Assembly Supervisor: DEEPALI DOWLING ([phone])[facility])[address] [place] [address] MCHC 33.7 % Normal 30.5-36.0 [facility] Comment on above: Performed By: #### L [id number] ####Furniture Assembly Supervisor: DEEPALI DOWLING ([phone])[facility])[address] [place] [address] MCV (RBC) [Entitic vol] 96.1 fL Normal 77.0-99.0 [facility] Comment on above: Performed By: #### L [id number] ####Furniture Assembly Supervisor: DEEPALI DOWLING ([phone])[facility])[address] [place] [address] Monocytes (Bld) [#/Vol] 0.8 10*3/uL Normal 0.0-0.9 [facility] Comment on above: Performed By: #### L [id number] ####Furniture Assembly Supervisor: DEEPALI DOWLING ([phone])[facility])[address] [place] [address] Monocytes/100 WBC (Bld) 9.6 % Normal 5.0-13.0 [facility] Comment on above: Performed By: #### L [id number] ####Furniture Assembly Supervisor: DEEPALI DOWLING ([phone])[facility])[address] [place] [address] NEUTROPHILS ABSOLUTE 5.1 10*3/uL Normal 1.8-7.5 [facility] Comment on above: Performed By: #### L [id number] ####Furniture Assembly Supervisor: DEEPALI DOWLING ([phone])[facility])[address] [place] [address] Neutrophils/100 WBC (Bld) 60.1 % Normal 38.0-82.0 [facility] Comment on above: Performed By: #### L [id number] ####Furniture Assembly Supervisor: DEEPALI DOWLING ([phone])[facility])[address] [place] [address] NRBC 0.0 /100 WBCs Normal 0.0-2.0 [facility] Comment on above: Performed By: #### L [id number] ####Furniture Assembly Supervisor: DEEPALI DOWLING ([phone])[facility])[address] [place] [address] Platelet mean volume (Bld) [Entitic vol] 10.0 fL Normal 9.0-12.7 [facility] Comment on above: Performed By: #### L [id number] ####Furniture Assembly Supervisor: DEEPALI DOWLING ([phone])[facility])[address] [place] [address] Platelets (Bld) [#/Vol] 219 10*3/uL Normal 140-440 [facility] Comment on above: Performed By: #### L [id number] ####Furniture Assembly Supervisor: DEEPALI DOWLING ([phone])[facility] ([facility])[address] [place] [address] RBC (Bld) [#/Vol] 4.32 10*6/uL Low 4.40-5.90 [facility] Comment on above: Performed By: #### L [id number] ####Furniture Assembly Supervisor: DEEPALI DOWLING ([phone])[facility])[address] [place] [address] WBC (Bld) [#/Vol] 8.4 10*3/uL Normal 3.6-10.7 [facility] Comment on above: Performed By: #### L [id number] ####Furniture Assembly Supervisor: DEEPALI DOWLING ([phone])[facility])[address] [place] [address] COMPREHENSIVE METABOLIC PANE Barrie 02-13-2025 Albumin [Mass/Vol] 3.5 g/dL Normal 3.4-4.8 [facility] Comment on above: Performed By: #### L [id number] ####Furniture Assembly Supervisor: DEEPALI DOWLING ([phone])[facility])[address] [place] [address] ALP [Catalytic activity/Vol] 50 U/L Normal 40-150 [facility] Comment on above: Performed By: #### L [id number] ####Furniture Assembly Supervisor: DEEPALI DOWLING ([phone])[facility] ([facility])[address] [place] [address] [place] ALT [Catalytic activity/Vol] 39 U/L Normal <40 [facility] Comment on above: Performed By: #### L [id number] ####Furniture Assembly Supervisor: DEEPALI DOWLING ([phone])[facility] ([facility])[address] [place] [address] Anion gap [Moles/Vol] 9 mmol/L Normal 3-13 [facility] Comment on above: Performed By: #### L [id number] ####Furniture Assembly Supervisor: DEEPALI DOWLING ([phone])[facility] ([facility])[address] [place] [address] AST [Catalytic activity/Vol] 42 U/L High <34 [facility] Comment on above: Performed By: #### L [id number] ####Furniture Assembly Supervisor: DEEPALI DOWLING ([phone])[facility] ([facility])[address] [place] [address] Bilirubin [Mass/Vol] 0.6 mg/dL Normal <1.2 [facility] Comment on above: Performed By: #### L [id number] ####Furniture Assembly Supervisor: DEEPALI DOWLING ([phone])[facility] ([facility])[address] [place] [address] Calcium [Mass/Vol] 9.2 mg/dL Normal 8.8-10.0 [facility] Comment on above: Performed By: #### L [id number] ####Furniture Assembly Supervisor: DEEPALI DOWLING ([phone])[facility])[address] [place] [address] Chloride [Moles/Vol] 106 mmol/L Normal 98-107 [facility] Comment on above: Performed By: #### L [id number] ####Furniture Assembly Supervisor: DEEPALI DOWLING ([phone])[facility] [place] [address] CO2 [Moles/Vol] 21 mmol/L Low 23-31 [facility] Comment on above: Performed By: #### L [id number] ####Furniture Assembly Supervisor: DEEPALI DOWLING ([phone])[facility] ([facility])[address] [place] [address] Creatinine [Mass/Vol] 0.63 mg/dL Low 0.72-1.25 [facility] Comment on above: Performed By: #### L [id number] ####Furniture Assembly Supervisor: DEEPALI DOWLING ([phone])[facility])[address] [place] [address] GLOMERULAR FILTRATION RATE ML/MIN/1.73 SQ M.PREDICTED >90.0 Normal >60.0 [facility] Comment on above: Result Comment: Calc ulation based on the Chronic Kidney Disease Epidemiology Collaboration (CKD-EPI) equation refit without adjustment for race Performed By: #### L [id number] ####Furniture Assembly Supervisor: DEEPALI DOWLING ([phone])[facility] ([facility])[address] [place] [address] Glucose [Mass/Vol] 105 mg/dL Normal 82-115 [facility] Comment on above: Performed By: #### L [id number] ####Furniture Assembly Supervisor: DEEPALI DOWLING ([phone])[facility] ([facility])[address] [place] [address] Potassium [Moles/Vol] 4.2 mmol/L Normal 3.5-5.1 [facility] Comment on above: Result Comment: Plas ma potassium values may be up to 0.5 mmol/L lower than serum values. Performed By: #### L [id number] ####Furniture Assembly Supervisor: DEEPALI DOWLING ([phone])[facility] ([facility])[address] [place] [address] Protein [Mass/Vol] 6.8 g/dL Normal 6.4-8.3 [facility] Comment on above: Performed By: #### L [id number] ####Furniture Assembly Supervisor: DEEPALI DOWLING ([phone])[facility] [place] [address] Sodium [Moles/Vol] 136 mmol/L Normal 136-145 [facility] Comment on above: Performed By: #### L [id number] ####Furniture Assembly Supervisor: DEEPALI DOWLING ([phone])[facility] ([facility])[address] [place] [address] Urea nitrogen [Mass/Vol] 19 mg/dL Normal 9-23 [facility] Comment on above: Performed By: #### L [id number] ####Furniture Assembly Supervisor: DEEPALI DOWLING ([phone])[facility] ([facility])[address] [place] [address] Comprehensive metabolic 1998 panelon 02-13-2025 Albumin [Mass/Vol] 3.5 g/dL 3.4 - 4.8 g/dL [facility] ALP [Catalytic activity/Vol] 50 U/L 40 - 150 U/L [facility] ALT [Catalytic activity/Vol] 39 U/L NINF - 40 U/L [facility] Anion gap [Moles/Vol] 9 mmol/L 3 - 13 mmol/L [facility] AST [Catalytic activity/Vol] 42 U/L High [facility] - 34 U/L [facility] Bilirubin [Mass/Vol] 0.6 mg/dL [facility] - 1.2 mg/dL [facility] Calcium [Mass/Vol] 9.2 mg/dL 8.8 - 10. 0 mg/dL [facility] Chloride [Moles/Vol] 106 mmol/L 98 - 107 mmol/L [facility] CO2 [Moles/Vol] 21 mmol/L Low 23 - 31 mmol/L [facility] Creatinine [Mass/Vol] 0.63 mg/dL Low 0.72 - 1.25 mg/dL [facility] GFR/1.73 sq M.predicted (S/P/Bld) [Vol rate/Area] - PINF [facility] Comment on above: Calculation based on the Chronic Kidney Disease Epidemiology Collaboration (CKD-EPI) equation refit without adjustment for race Glucose [Mass/Vol] 105 mg/dL 82 - 115 mg/dL [facility] Interpretation and review of laboratory results Abnormal [facility] Potassium [Moles/Vol] 4.2 mmol/L 3.5 - 5.1 mmol/L [facility] Comment on above: Plasma potassium carissa ues may be up to 0.5 mmol/L lower than serum values. Protein [Mass/Vol] 6.8 g/dL 6.4 - 8.3 g/dL [facility] Sodium [Moles/Vol] 136 mmol/L 136 - 145 mmol/L [facility] Urea nitrogen [Mass/Vol] 19 mg/dL 9 - 23 mg/dL [facility] Laboratory - Chemistry and C hemistry - challengeon 02-13-2025 Prostate specific Ag [Mass/Vol] 8.814 ng/mL High NINF - 0.200 ng/mL [facility] No Panel Informationon 02-13 Interpretation and review of laboratory results Abnormal [facility] Testing performed on the [employer] using a two-step chemiluminescent microparticle immunoassay method. Results obtained by different methods should not be used interchangeably. A prostate specific antigen of >0.2 ng/mL is considered as initial evidence of biochemical recurrence following radical prostatectomy. [facility] Office Visiton 02-13-2025 Follow-up visit [id number] Izabela London 1940 M Date Provider Department Center 02/13/2025 [id number] URIAS [facility] ONC None Family History Problem Relation Age of Onset Cancer Father 77 Comments: Colon Family Status - Relation Status Age at Father Level of Service:48938 [place] OFFICE/OUTPATIENT ESTABLISHED [facility] 30 MIN Reason for Visit and Comments: Follow-up [307472] Normal [facility] PSA TOTAL (DIAGNOSTIC POST-P ROSTATECTOMY)on 02-13-2025 PROSTATE SPECIFIC AG TOTAL 8.814 ng/mL High <=0.200 [facility] Comment on above: Result Comment: YANETH Ding COMMENTS: Testing performed on the [employer] using a two-step chemiluminescent microparticle immunoassay method. Results obtained by different methods should not be used interchangeably. A prostate specific antigen of >0.2 ng/mL is considered as initial evidence of biochemical recurrence following radical prostatectomy. Performed By: #### L [id number] ####Furniture Assembly Supervisor: DEEPALI DOWLING ([phone])[facility] ([facility])[address] [place] [address] Progress Noteon 02-13-2025 Progress Note Pt arrived ambulator y from OV with Dr. Woodard C11 D1 and tx 11 Zometa infusion/Zoladex injection today. Pt notes knee pain is 3/10. CBC/PSA/CMP drawn via PIV and sent to [facility] at [facility]. See toxicity assessment. Pt denies any dental procedures in the past few months and denies any jaw pain/swelling. 1221- Pt tolerated infusion and injection in LLQ well and without incident. Pt discharged home without complication. Aware of next appt date/time. Normal [facility] Progress Note Patient ID: Izabela London is a 85 y.o. male. HPI Tolerating Xtandi well. No hot flashes, seizures or back pain. he has the following oncology history 1. 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 2. S/p REPOCH chemotherapy with IT methotrexate. IT MTX started with cycle 3 and was given on day [address]. [address] scan post treatment and BMBx showed no evidence of disease hence CR. 4. Metastatic prostate cancer diagnosed Oct 2019. Metastatic sites involve bone. Under the care of Dr. Sarmiento and was getting GnRH agonist. Initially he got Lupron and then was started on Zoladex. 5. Due to rising PSA in spite of low testosterone, started on Xtandi 160 mg p.o. daily March 2021. Review of Systems - Oncology No nausea, vomiting, diarrhea, fever, night sweats, chills, cough, shortness of breath, chest pain BSA: 2.12 meters squared BP 127/67 Pulse 62 Temp 36.2 ?C (97.2 ?F) (Temporal) Ht 1.803 m (5' 10.98) Wt 89.4 kg (197 lb) SpO2 97% BMI 27.49 kg/m? Physical Exam No lymphadenopathy or hepatosplenomegaly. No lower extremity edema. Lab Results Component Value Date WBC 9.2 11/21/2024 HGB 13.4 11/21/2024 HCT 39.6 (L) 11/21/2024 MCV 95.7 11/21/2024 PLT 272 11/21/2024 Lab Results Component Value Date GLUCOSE 104 11/21/2024 CALCIUM 9.5 11/21/2024 NA 138 11/21/2024 K 4.1 11/21/2024 CO2 26 11/21/2024 CL 104 11/21/2024 BUN 17 11/21/2024 CREATININE 0.64 (L) 11/21/2024 ntains abnormal data PSA Total (Diagnostic Post-Prostatectomy) Order: [id number] Status: Final result Visible to patient: Yes (seen) Next appt: Today at 11:00 AM in Infusion Therapy (CHAIR 23) Dx: Malignant neoplasm metastatic to bone... 0 Result Notes Component Ref Range & Units 2 mo ago 5 mo ago PSA Total <=0.200 ng/mL 5.100 High 1.608 R Resulting Agency [facility] SAC Narrative Performed by: [facility] Testing performed on the [employer] using a two-step chemiluminescent microparticle immunoassay method. Results obtained by different methods should not be used interchangeably. A prostate specific antigen of >0.2 ng/mL is considered as initial evidence of biochemical recurrence following radical prostatectomy. Specimen Collected: 11/21/24 11:17 Assessment/Plan he appears to be in complete remission from Burkitt's Lymphoma standpoint. 2. Rising PSA in the setting of GnRH agonist in spite of castrate levels of testosterone. PSA was slightly evaded last time. If elevated today, will need restaging and potential change of treatment. continue Zoladex 10.8mg depot every 12 weeks Continue Xtandi 160 mg p.o. daily. Discussed some of the side effects that include hot flashes, back pain, very low risk of seizures among others. We will touch base after bone scan and proceed accordingly. Median duration of response with xtandi is 15 months Continue Zometa every 12 weeks. I did discuss risk of osteonecrosis of the jaw which is 1 to 2% in patients receiving Zometa 3. I have counseled him on diet and exercise. Patient verbalizes understanding and agrees with the plan. There are no diagnoses linked to this encounter. Plan as of 02/14/25 Electronically signed Kristen Urias MD [facility] 37on 02-12-2025 37 Annual exam after on e year. Jeramie Ching MD Personalized Preventative Plan for Izabela London - 02/12/2025 Medicare offers a range of preventative health benefits. Some of the tests and screenings are paid in full while others may be subject to a deductible, co-insurance, and / or copay. Some of these benefits include a comprehensive review of your medical history including lifestyle, illnesses that may run in your family, and various assessments and screenings as appropriate. After reviewing your medical record and screening and assessments performed today, your provider may have ordered immunizations, labs, imaging, and / or referrals for you. A list of these orders (if applicable) as well as your Preventative Care list are included within your After Visit Summary for your review. Other Preventative Recommendations: A preventive eye exam by an museum informatics specialist is recommended every 1-2 years to screen for glaucoma, cataracts, macular degeneration, and other eye disorders. A preventive dental visit is recommended every 6 months. Try to get at least 150 minutes of exercise per week or 10,000 steps per day on a pedometer. You need 1200-1500mg of calcium and 8438-7631 international units of vitamin D per day. It is possible to meet your calcium requirement with diet alone, but a vitamin D supplement is usually necessary to meet this goal. When exposed to the sun, use a sunscreen that protects against both UVA and UVB radiation with an SPF of 30 or greater. Reapply every 2-3 hours or after sweating, drying off with a towel, or swimming. Always wear a seat belt when traveling in a car. Always wear a helmet when riding a bicycle or a motorcycle Normal [facility] Office Visiton 02-12-2025 Follow-up visit [id number] Izabela London 1940 M [facility] Provider Department Center 02/12/2025 [id number]-YLLMTJERAMIE CHING [facility] MIMA GUILLERMO Family History Problem Relation Age of Onset Cancer Father 77 Comments: Colon Family Status - Relation Status Age at Father Level of Service:G0439 [place] PPPS, SUBSEQ VISIT Reason for Visit and Comments: Medicare Annual Wellness Visit Subsequent [677] Normal [facility] Progress Noteon 02-12-2025 Progress Note [facility] - [address] [place] [address] Dept: [phone] Dept Chief Complaint: Izabela London is an 85 y.o. male here for an annual wellness visit. Patient presents for annual exam. No new complaint. Hx metastatic prostate CA, followed by oncology, no new pain sx. Being treated with enzalutamide and has follow up tomorrow. No vasomotor sx. 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 Continues to drive. Has home exercises including exercise bicycle. No falls reported. Hx CAD, no angina. Tolerating simvastatin and carvedilol Hx HTN, bp controlled with lisinopril and carvedilol Assessment/Plan : Problem List Items Addressed This Visit Nervous Weakness of both lower extremities Continue home exercises Drug-induced polyneuropathy (HCC) Stable, no new sx Circulatory History of heart artery stent No angina 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 Stable, no new sx Essential hypertension Controlled with current medication Genitourinary Prostate cancer (HCC) Followed by oncology for rising PSA Other Visit Diagnoses Routine general medical examination at health care facility - Primary Annual exam after one year. Jeramie Ching MD I have reviewed and reconciled the medication list with the patient today. Current Outpatient Medications Medication Sig Dispense Refill ascorbic acid (Vitamin C) 500 MG tablet Take 1 tablet (500 mg) by mouth daily. 30 tablet 11 aspirin 81 MG EC tablet Take 81 mg by mouth in the morning. Calcium Carb-Cholecalciferol 500-5 MG-MCG tablet tablet Take 1 tablet by mouth daily. 90 tablet 3 carvedilol (Coreg) 3.125 MG tablet 1 po bid 180 tablet 3 cholecalciferol (Vitamin D-3) 125 MCG (5000 UT) capsule Take 5,000 Units by mouth in the morning. enzalutamide (Xtandi) 40 MG chemo capsule TAKE 4 CAPSULES BY MOUTH DAILY 120 capsule 3 lisinopril 10 MG tablet Take 1 tablet (10 mg) by mouth daily. 90 tablet 3 simvastatin (Zocor) 20 MG tablet TAKE 1 TABLET BY MOUTH EVERY DAY IN THE EVENING 90 tablet 3 tamsulosin (Flomax) 0.4 MG 24 hr capsule TAKE 1 CAPSULE (0.4 MG) BY MOUTH IN THE MORNING AND 1 CAPSULE (0.4 MG) IN THE EVENING. 180 capsule 3 zinc sulfate (Zincate) 220 (50 Zn) MG capsule Take 1 capsule (50 mg of elemental zinc) by mouth daily. 30 capsule 11 albuterol (Ventolin HFA) 108 (90 Base) MCG/ACT inhaler Inhale 2 puffs every 4 hours as needed for wheezing or shortness of breath. (Patient not taking: Reported on 02/12/2025) 8 g 0 No current facility-administered medications for this visit. Also reviewed during this visit: The following health maintenance schedule was reviewed with the patient and provided in printed form in the after visit summary: Health Maintenance Topic Date Due Derm Melanoma Skin Check Never done RSV Immunization for Adults (1 - 1-dose 75+ series) Never done COVID-19 Vaccine (2023- season) 2024 Depression Screening 02/06/2025 DTaP/Tdap/Td Vaccines (3 - Td or Tdap) 04/01/2027 Lipid Panel 02/27/2029 Medicare Advantage Annual Wellness Visit Completed Influenza Vaccine Completed Pneumococcal Vaccine: 50+ Years Completed Zoster Vaccines Completed RSV Immunization under 20 Months Aged Out HIB Vaccines Aged Out Hepatitis B Vaccines Aged Out IPV Vaccines Aged Out Hepatitis A Vaccines Aged Out Meningococcal Vaccine Aged Out Rotavirus Vaccines Aged Out HPV Vaccines Aged Out List of current healthcare providers: Patient Care Team: Jeramie Ching MD as PCP - General Kristen Urias MD as Consulting Physician (Oncology) Lukas Chavez MD as Consulting Physician (Hematology and Oncology) Regina Dorado RN as Nurse Navigator (Oncology) No orders of the defined types were placed in this encounter. Review of Systems Physical Exam Vitals and nursing note reviewed. Constitutional: General: He is not in acute distress. Appearance: Normal appearance. He is normal weight. He is not ill-appearing, toxic-appearing or diaphoretic. Neck: Vascular: No carotid bruit. Cardiovascular: Rate and Rhythm: Normal rate and regular rhythm. Heart sounds: Normal heart sounds. No murmur heard. Skin: General: Skin is warm and dry. Coloration: Skin is not pale. Neurological: Mental Status: He is alert. Psychiatric: Mood and Affect: Mood normal. Behavior: Behavior normal. Thought Content: Thought content normal. Judgment: Judgment normal. Objective : BP 130/70 (BP Location: Right arm, Patient Position: Sitting, BP Cuff Size: Adult) Pulse 64 Temp 36.3 ?C (97.4 ?F) (Temporal) Ht 5' 10.98 (1.803 m) Wt 196 lb (88.9 kg) SpO2 95% BMI 27.35 kg/m? Vision Screening Right eye Left eye Both eyes Without correction With correction 20/20 20/20 20/20 Subjective : Health Risk As (more content not included)... Normal [address] 02-09-2025 36 Called patient to confirm tomorrow's appointment. No answer. Unable to leave message. Normal [facility] 36 12-14-2024 36 Medication name: simvastatin (Zocor) Medication dosage: 20 mg (Miligrams Monthly quantity needed: 30 How many day supply requestin days Medication route: oral (PO) Medication administration time(s): daily If taking medication PRN, reason for taking medication: N/A If this is a controlled substance do you receive this or any other controlled medication from any other doctor or facility: No Ordering provider: Helen Date of last office visit: 10/03/24 Date of next office visit: 02/12/25 Date of last refill: (see medication tab): 12/08/23 Updated/Validated preferred pharmacy: Yes Patient instructed to contact the pharmacy prior to picking up the medication: No Normal [address] 11-29-2024 36 [facility] Oncology Care Plan SUBJECTIVE Izabela London is a 84 year old Male who was referred to [facility] for clinical management services for Xtandi 40 MG. Diagnosis Malignant neoplasm of prostate C61 OBJECTIVE Medications: Aspirin 81 MG CHEW PO Carvedilol 3.125 MG TABS PO Flomax 0.4 MG CAPS PO Lisinopril 10 MG TABS PO Os-Preeti Calcium + D3 500-200 MG-UNIT TABS PO Simvastatin 20 MG TABS PO Vitamin D (Cholecalciferol) 1000 UNIT CAPS PO Xtandi 40 MG CAPS PO Supportive Medications: GnRH Agent for Xtandi 40 MG Allergies: No Known Allergies Medical History & Comorbidities: Problem list has been reviewed in the EHR ASSESSMENT / PLAN Xtandi 40 MG Administration Self administered at home oral medication. Patient takes enzalutamide (Xtandi) 4 capsules (160mg) by mouth daily. Patient understands that medication should be taken at approximately the same time each day, with or without food, and medication should not be chewed or crushed. Izabela has been on Xtandi since 03/2021. He understands and is comfortable with administration directions. No barriers to therapy identified. Contact Advised patient to contact pharmacy or provider with any concerns regarding side effects, questions regarding therapy, or any other situation where clinical oversight is necessary. Provided patient with direct number to clinical pharmacist for questions or concerns prior to scheduled follow up. The patient was oriented to the pharmacy?s services upon initial fill. Encouraged patient to participate in this plan of care by speaking with a pharmacist which is offered during each reassessment. Disease state education Counseled on general disease state management strategies. Emphasized the importance of consistent adherence to prescribed medication in order to achieve treatment goals. Monitoring and follow up Reviewed therapy monitoring parameters and importance to maintain follow-up lab and provider visits. Labs to be monitored routinely for side effects: CBC, CMP/LFTs, blood pressure. PSA will be monitored to assess for efficacy. Storage/Disposal Store at 20?C to 25?C (68?F to 77?F). Store in a dry place. Keep medications in a safe place, out of reach of children and pets. Expectations and Goals of therapy Patient continues to work towards and meet goals of therapy including prostate cancer control, PSA suppression, and symptom management. Adherence Advised patient of the importance of taking this medication as prescribed and to avoid missing any doses. Advised patient if a dose was missed, it may be taken upon remembering if it is the same day. If a dose is missed and not noticed until the following day, the missed dose should be skipped. Patient understands not to take two doses at once. Denies missed doses. Side effects Common side effects reviewed: Fatigue, decreased appetite and weight, hot flush, arthralgia, hypertension, diarrhea, constipation, hyperglycemia and hypermagnesemia. Serious side effects reviewed: seizure, posterior reversible encephalopathy syndrome (rapid and significant neurologic changes), hypersensitivity (including facial swelling), ischemic heart disease, falls and fractures. Live vaccines should NOT be administered during chemotherapy or periods of significant immunosuppression. Denies all side effects. Efficacy Most recent PSA 5.1 on 11/21/24. Pharmacy Recommendations/Educati on/Other Continuation of therapy is appropriate. Medications, allergies, ancillary medications, medical condition, and appropriate vaccinations were reviewed. Patient is agreeable to care plan. No questions or concerns at this time. [facility] will continue to provide clinical pharmacy services and coordinate refills/deliveries with the patient. Delivery scheduled for 2/10/25. F/U ~ 6 months or as clinically indicated Bhanu Diaz, PharmD, BCPS Clinical Specialty Pharmacist Normal [facility] CBC W Auto Differential pane l (Bld)on 11-21-2024 Basophils (Bld) [#/Vol] 0 10*3/uL 0.0 - 0.2 10*3/uL [facility] Basophils/100 WBC (Bld) 0.4 % 0.0 - 2.0 % [facility] Eosinophils (Bld) [#/Vol] 0.2 10*3/uL 0.0 - 0.5 10*3/uL [facility] Eosinophils/100 WBC (Bld) 2.2 % 0.0 - 6.0 % [facility] Erythrocyte distribution width (RBC) [Ratio] 13.4 % 11.5 - 15.0 % [facility] Hematocrit (Bld) [Volume fraction] 39.6 % Low 40.0 - 52.0 % [facility] Hemoglobin (Bld) [Mass/Vol] 13.4 g/dL 13.0 - 18.0 g/dL [facility] Immature granulocytes (Bld) [#/Vol] 0 10*3/uL NINF - 0.1 10*3/uL [facility] Immature granulocytes/100 WBC (Bld) 0.2 % 0.0 - 2.0 % [facility] Interpretation and review of laboratory results Abnormal [facility] Lymphocytes (Bld) [#/Vol] 2 10*3/uL 1.0 - 4.3 10*3/uL [facility] Lymphocytes/100 WBC (Bld) 22.3 % 15.0 - 45.0 % [facility] MCH (RBC) [Entitic mass] 32.4 pg 26.0 - 34.0 pg [facility] MCHC (RBC) [Mass/Vol] 33.8 % 30.5 - 36.0 % [facility] MCV (RBC) [Entitic vol] 95.7 fL 77.0 - 99.0 fL [facility] Monocytes (Bld) [#/Vol] 0.9 10*3/uL 0.0 - 0.9 10*3/uL [facility] Monocytes/100 WBC (Bld) 9.7 % 5.0 - 13.0 % [facility] Neutrophils (Bld) [#/Vol] 6 10*3/uL 1.8 - 7.5 10*3/uL [facility] Neutrophils/100 WBC (Bld) 65.2 % 38.0 - 82.0 % [facility] Nucleated RBC/100 WBC (Bld) [Ratio] 0 % [facility] Platelet mean volume (Bld) [Entitic vol] 10.2 fL 9.0 - 12.7 fL [facility] Platelets (Bld) [#/Vol] 272 10*3/uL 140 - 440 10*3/uL [facility] RBC (Bld) [#/Vol] 4.14 10*6/uL Low 4.40 - 5.9 0 10*6/uL [facility] WBC (Bld) [#/Vol] 9.2 10*3/uL 3.6 - 10.7 10*3/uL [facility] CBC WITH AUTO DIFFERENTIALon 11-21-2024 Basophils (Bld) [#/Vol] 0.0 10*3/uL Normal 0.0-0.2 [facility] Comment on above: Performed By: #### L [id number] ####Furniture Assembly Supervisor: DEEPALI DOWLING ([phone])[address] Basophils/100 WBC (Bld) 0.4 % Normal 0.0-2.0 [facility] Comment on above: Performed By: #### L [id number] ####Furniture Assembly Supervisor: DEEPALI DOWLING ([phone])[facility])[address] [place] [address] [place] Eosinophils (Bld) [#/Vol] 0.2 10*3/uL Normal 0.0-0.5 [facility] Comment on above: Performed By: #### L [id number] ####Furniture Assembly Supervisor: DEEPALI DOWLING ([phone])[facility])[address] [place] [address] [place] Eosinophils/100 WBC (Bld) 2.2 % Normal 0.0-6.0 [facility] Comment on above: Performed By: #### L [id number] ####Furniture Assembly Supervisor: DEEPALI [id number])[facility])[address] [place] [address] Erythrocyte distribution width (RBC) [Ratio] 13.4 % Normal 11.5-15.0 [facility] Comment on above: Performed By: #### L [id number] ####Furniture Assembly Supervisor: DEEPALI DOWLING ([phone])[facility])[address] [place] [address] Hematocrit (Bld) [Volume fraction] 39.6 % Low 40.0-52.0 [facility] Comment on above: Performed By: #### L [id number] ####Furniture Assembly Supervisor: DEEPALI DOWLING ([phone])[facility])[address] [place] [address] Hemoglobin (Bld) [Mass/Vol] 13.4 g/dL Normal 13.0-18.0 [facility] Comment on above: Performed By: #### L [id number] ####Furniture Assembly Supervisor: DEEPALI DOWLING ([phone])[facility] ([facility])[address] [place] [address] IMMATURE GRANS % 0.2 % Normal 0.0-2.0 [facility] Comment on above: Performed By: #### L [id number] ####Furniture Assembly Supervisor: DEEPALI DOWLING ([phone])[facility])[address] [place] [address] IMMATURE GRANS ABSOLUTE 0.0 10*3/uL Normal <0.1 [facility] Comment on above: Performed By: #### L [id number] ####Furniture Assembly Supervisor: DEEPALI DOWLING ([phone])[facility] ([facility])[address] [place] [address] [place] Lymphocytes (Bld) [#/Vol] 2.0 10*3/uL Normal 1.0-4.3 [facility] Comment on above: Performed By: #### L [id number] ####Furniture Assembly Supervisor: DEEPALI DOWLING ([phone])[facility])[address] [place] [address] [place] Lymphocytes/100 WBC (Bld) 22.3 % Normal 15.0-45.0 [facility] Comment on above: Performed By: #### L [id number] ####Furniture Assembly Supervisor: DEEPALI DOWLING ([phone])[facility])[address] [place] [address] MCH (RBC) [Entitic mass] 32.4 pg Normal 26.0-34.0 [facility] Comment on above: Performed By: #### L [id number] ####Furniture Assembly Supervisor: DEEPALI DOWLING ([phone])[facility])[address] [place] [address] MCHC 33.8 % Normal 30.5-36.0 [facility] Comment on above: Performed By: #### L [id number] ####Furniture Assembly Supervisor: DEEPALI DOWLING ([phone])[facility])[address] [place] [address] MCV (RBC) [Entitic vol] 95.7 fL Normal 77.0-99.0 [facility] Comment on above: Performed By: #### L [id number] ####Furniture Assembly Supervisor: DEEPALI DOWLING ([phone])[facility])[address] [place] [address] Monocytes (Bld) [#/Vol] 0.9 10*3/uL Normal 0.0-0.9 [facility] Comment on above: Performed By: #### L [id number] ####Furniture Assembly Supervisor: DEEPALI DOWLING ([phone])[facility])[address] [place] [address] Monocytes/100 WBC (Bld) 9.7 % Normal 5.0-13.0 [facility] Comment on above: Performed By: #### L [id number] ####Furniture Assembly Supervisor: DEEPALI DOWLING ([phone])[facility])[address] [place] [address] NEUTROPHILS ABSOLUTE 6.0 10*3/uL Normal 1.8-7.5 [facility] Comment on above: Performed By: #### L [id number] ####Furniture Assembly Supervisor: DEEPALI DOWLING ([phone])[facility] ([facility])[address] [place] [address] Neutrophils/100 WBC (Bld) 65.2 % Normal 38.0-82.0 [facility] Comment on above: Performed By: #### L [id number] ####Furniture Assembly Supervisor: DEEPALI DOWLNIG ([phone])[facility] ([facility])[address] [place] [address] NRBC 0.0 /100 WBCs Normal 0.0-2.0 [facility] Comment on above: Performed By: #### L [id number] ####Furniture Assembly Supervisor: DEEPALI DOWLING ([phone])[facility] ([facility])[address] [place] [address] Platelet mean volume (Bld) [Entitic vol] 10.2 fL Normal 9.0-12.7 [facility] Comment on above: Performed By: #### L [id number] ####Furniture Assembly Supervisor: DEEPALI DOWLING ([phone])[facility] ([facility])[address] [place] [address] Platelets (Bld) [#/Vol] 272 10*3/uL Normal 140-440 [facility] Comment on above: Performed By: #### L [id number] ####Furniture Assembly Supervisor: DEEPALI DOWLING ([phone])[facility])[address] [place] [address] RBC (Bld) [#/Vol] 4.14 10*6/uL Low 4.40-5.90 [facility] Comment on above: Performed By: #### L [id number] ####Furniture Assembly Supervisor: DEEPALI DOWLING ([phone])[facility])[address] [place] [address] WBC (Bld) [#/Vol] 9.2 10*3/uL Normal 3.6-10.7 [facility] Comment on above: Performed By: #### L [id number] ####Furniture Assembly Supervisor: DEEPALI DOWLING ([phone])[facility] ([facility])[address] [place] [address] Basophils (Bld) [#/Vol] 0.1 10*3/uL Normal 0.0-0.2 [facility] Comment on above: Performed By: #### L [id number] ####Furniture Assembly Supervisor: DEEPALI DOWLING ([phone])[facility])[address] [place] [address] Basophils/100 WBC (Bld) 0.7 % Normal 0.0-2.0 [facility] Comment on above: Performed By: #### L [id number] ####Furniture Assembly Supervisor: DEEPALI DOWLING ([phone])[facility])[address] [place] [address] Eosinophils (Bld) [#/Vol] 0.2 10*3/uL Normal 0.0-0.5 [facility] Comment on above: Performed By: #### L [id number] ####Furniture Assembly Supervisor: DEEPALI DOWLING ([phone])[facility] ([facility])[address] [place] [address] Eosinophils/100 WBC (Bld) 2.5 % Normal 0.0-6.0 [facility] Comment on above: Performed By: #### L [id number] ####Furniture Assembly Supervisor: DEEPALI DOWLING ([phone])[facility])[address] [place] [address] Erythrocyte distribution width (RBC) [Ratio] 13.2 % Normal 11.5-15.0 [facility] Comment on above: Performed By: #### L [id number] ####Furniture Assembly Supervisor: DEEPALI DOWLING ([phone])[facility])[address] [place] [address] Hematocrit (Bld) [Volume fraction] 41.8 % Normal 40.0-52.0 [facility] Comment on above: Performed By: #### L [id number] ####Furniture Assembly Supervisor: DEEPALI DOWLING ([phone])[facility] Hemoglobin (Bld) [Mass/Vol] 13.4 g/dL Normal 13.0-18.0 [facility] Comment on above: Performed By: #### L [id number] ####Furniture Assembly Supervisor: DEEPALI DOWLING ([phone])[facility])[address] [place] [address] IMMATURE GRANS % 0.3 % Normal 0.0-2.0 [facility] Comment on above: Performed By: #### L [id number] ####Furniture Assembly Supervisor: DEEPALI DOWLING ([phone])[facility])[address] [place] [address] IMMATURE GRANS ABSOLUTE 0.0 10*3/uL Normal <0.1 [facility] Comment on above: Performed By: #### L [id number] ####Furniture Assembly Supervisor: DEEPALI DOWLING ([phone])[facility])[address] [place] [address] Lymphocytes (Bld) [#/Vol] 2.0 10*3/uL Normal 1.0-4.3 [facility] Comment on above: Performed By: #### L [id number] ####Furniture Assembly Supervisor: DEEPALI DOWLING ([phone])[address] Lymphocytes/100 WBC (Bld) 22.4 % Normal 15.0-45.0 [facility] Comment on above: Performed By: #### L [id number] ####Furniture Assembly Supervisor: DEEPALI DOWLING ([phone])[facility])[address] [place] [address] MCH (RBC) [Entitic mass] 31.9 pg Normal 26.0-34.0 [facility] Comment on above: Performed By: #### L [id number] ####Furniture Assembly Supervisor: DEEPALI DOWLING ([phone])[facility])[address] [place] [address] MCHC 32.1 % Normal 30.5-36.0 [facility] Comment on above: Performed By: #### L [id number] ####Furniture Assembly Supervisor: DEEPALI DOWLING ([phone])[facility] ([facility])[address] [place] [address] MCV (RBC) [Entitic vol] 99.5 fL High 77.0-99.0 [facility] Comment on above: Performed By: #### L [id number] ####Furniture Assembly Supervisor: DEEPALI DOWLING ([phone])[facility] ([facility])[address] [place] [address] Monocytes (Bld) [#/Vol] 0.8 10*3/uL Normal 0.0-0.9 [facility] Comment on above: Performed By: #### L [id number] ####Furniture Assembly Supervisor: DEEPALI DOWLING ([phone])[facility])[address] [place] [address] Monocytes/100 WBC (Bld) 9.4 % Normal 5.0-13.0 [facility] Comment on above: Performed By: #### L [id number] ####Furniture Assembly Supervisor: DEEPALI DOWLING ([phone])[facility] ([facility])[address] [place] [address] NEUTROPHILS ABSOLUTE 5.7 10*3/uL Normal 1.8-7.5 [facility] Comment on above: Performed By: #### L [id number] ####Furniture Assembly Supervisor: DEEPALI DOWLING ([phone])[facility])[address] [place] [address] Neutrophils/100 WBC (Bld) 64.7 % Normal 38.0-82.0 [facility] Comment on above: Performed By: #### L [id number] ####Furniture Assembly Supervisor: DEEPALI DOWLING ([phone])[facility])[address] [place] [address] NRBC 0.0 /100 WBCs Normal 0.0-2.0 [facility] Comment on above: Performed By: #### L [id number] ####Furniture Assembly Supervisor: DEEPALI DOWLING ([phone])[facility])[address] [place] [address] Platelet mean volume (Bld) [Entitic vol] 10.4 fL Normal 9.0-12.7 [facility] Comment on above: Performed By: #### L [id number] ####Furniture Assembly Supervisor: DEEPALI DOWLING ([phone])[facility] ([facility])[address] [place] [address] Platelets (Bld) [#/Vol] 303 10*3/uL Normal 140-440 [facility] Comment on above: Performed By: #### L [id number] ####Furniture Assembly Supervisor: DEEPALI DOWLING ([phone])[facility] ([facility])[address] [place] [address] RBC (Bld) [#/Vol] 4.20 10*6/uL Low 4.40-5.90 [facility] Comment on above: Performed By: #### L [id number] ####Furniture Assembly Supervisor: DEEPALI DOWLING ([phone])[facility] ([facility])[address] [place] [address] WBC (Bld) [#/Vol] 8.8 10*3/uL Normal 3.6-10.7 [facility] Comment on above: Performed By: #### L [id number] ####Furniture Assembly Supervisor: DEEPALI DOWLING ([phone])[facility] ([facility])[address] [place] [address] COMPREHENSIVE METABOLIC PANE [place] 11-21-2024 Albumin [Mass/Vol] 3.5 g/dL Normal 3.4-4.8 [facility] Comment on above: Performed By: #### L [id number] ####Furniture Assembly Supervisor: DEEPALI DOWLING ([phone])[facility])[address] [place] [address] ALP [Catalytic activity/Vol] 50 U/L Normal 40-150 [facility] Comment on above: Performed By: #### L [id number] ####Furniture Assembly Supervisor: DEEPALI DOWLING ([phone])[facility] ([facility])[address] [place] [address] ALT [Catalytic activity/Vol] 47 U/L High <40 [facility] Comment on above: Performed By: #### L [id number] ####Furniture Assembly Supervisor: DEEPALI DOWLING ([phone])[facility] ([facility])[address] [place] [address] Anion gap [Moles/Vol] 8 mmol/L Normal 3-13 [facility] Comment on above: Performed By: #### L [id number] ####Furniture Assembly Supervisor: DEEPALI DOWLING ([phone])[facility] ([facility])[address] [place] [address] AST [Catalytic activity/Vol] 55 U/L High <34 [facility] Comment on above: Performed By: #### L [id number] ####Furniture Assembly Supervisor: DEEPALI DOWLING ([phone])[facility] ([facility])[address] [place] [address] Bilirubin [Mass/Vol] 0.6 mg/dL Normal <1.2 [facility] Comment on above: Performed By: #### L [id number] ####Furniture Assembly Supervisor: DEEPALI DOWLING ([phone])[facility] ([facility])[address] [place] [address] Calcium [Mass/Vol] 9.5 mg/dL Normal 8.8-10.0 [facility] Comment on above: Performed By: #### L [id number] ####Furniture Assembly Supervisor: DEEPALI DOWLING ([phone])[facility])[address] [place] [address] Chloride [Moles/Vol] 104 mmol/L Normal 98-107 [facility] Comment on above: Performed By: #### L [id number] ####Furniture Assembly Supervisor: DEEPALI DOWLING ([phone])[facility])[address] [place] [address] CO2 [Moles/Vol] 26 mmol/L Normal 23-31 [facility] Comment on above: Performed By: #### L [id number] ####Furniture Assembly Supervisor: DEEPALI DOWLING ([phone])[facility])[address] [place] [address] Creatinine [Mass/Vol] 0.64 mg/dL Low 0.72-1.25 [facility] Comment on above: Performed By: #### L [id number] ####Furniture Assembly Supervisor: DEEPALI DOWLING ([phone])[facility])[address] [place] [address] GLOMERULAR FILTRATION RATE ML/MIN/1.73 SQ M.PREDICTED >90.0 Normal >60.0 [facility] Comment on above: Result Comment: Calc ulation based on the Chronic Kidney Disease Epidemiology Collaboration (CKD-EPI) equation refit without adjustment for race Performed By: #### L [id number] ####Furniture Assembly Supervisor: DEEPALI DOWLING ([phone])[facility])[address] [place] [address] Glucose [Mass/Vol] 104 mg/dL Normal 82-115 [facility] Comment on above: Performed By: #### L [id number] ####Furniture Assembly Supervisor: DEEPALI DOWLING ([phone])[address] Potassium [Moles/Vol] 4.1 mmol/L Normal 3.5-5.1 [facility] Comment on above: Result Comment: Plas ma potassium values may be up to 0.5 mmol/L lower than serum values. Performed By: #### L [id number] ####Furniture Assembly Supervisor: DEEPALI DOWLING ([phone])[facility])[address] [place] [address] Protein [Mass/Vol] 6.7 g/dL Normal 6.4-8.3 [facility] Comment on above: Performed By: #### L [id number] ####Furniture Assembly Supervisor: DEEPALI DOWLING ([phone])[facility])[address] [place] [address] Sodium [Moles/Vol] 138 mmol/L Normal 136-145 [facility] Comment on above: Performed By: #### L [id number] ####Furniture Assembly Supervisor: DEEPALI DOWLING ([phone])[facility] ([facility])[address] [place] [address] Urea nitrogen [Mass/Vol] 17 mg/dL Normal 9-23 [facility] Comment on above: Performed By: #### L [id number] ####Furniture Assembly Supervisor: DEEPALI DOWLING ([phone])[facility] ([facility])[address] [place] [address] Albumin [Mass/Vol] 3.5 g/dL Normal 3.4-4.8 [facility] Comment on above: Performed By: #### L [id number] ####Furniture Assembly Supervisor: DEEPALI DOWLING ([phone])[facility] ([facility])[address] [place] [address] ALP [Catalytic activity/Vol] 50 U/L Normal 40-150 [facility] Comment on above: Performed By: #### L [id number] ####Furniture Assembly Supervisor: DEEPALI DOWLING ([phone])[facility] ([facility])[address] [place] [address] ALT [Catalytic activity/Vol] 45 U/L High <40 [facility] Comment on above: Performed By: #### L [id number] ####Furniture Assembly Supervisor: DEEPALI DOWLING ([phone])[facility] ([facility])[address] [place] [address] Anion gap [Moles/Vol] 9 mmol/L Normal 3-13 [facility] Comment on above: Performed By: #### L [id number] ####Furniture Assembly Supervisor: DEEPALI DOWLING ([phone])[facility] ([facility])[address] [place] [address] [place] AST [Catalytic activity/Vol] 54 U/L High <34 [facility] Comment on above: Performed By: #### L [id number] ####Furniture Assembly Supervisor: DEEPALI DOWLING ([phone])[facility] ([facility])[address] [place] [address] Bilirubin [Mass/Vol] 0.6 mg/dL Normal <1.2 [facility] Comment on above: Performed By: #### L [id number] ####Furniture Assembly Supervisor: DEEPALI DOWLING ([phone])[facility] ([facility])[address] [place] [address] Calcium [Mass/Vol] 9.0 mg/dL Normal 8.8-10.0 [facility] Comment on above: Performed By: #### L [id number] ####Furniture Assembly Supervisor: DEEPALI DOWLING ([phone])[facility] ([facility])[address] [place] [address] [place] Chloride [Moles/Vol] 105 mmol/L Normal 98-107 [facility] Comment on above: Performed By: #### L [id number] ####Furniture Assembly Supervisor: DEEPALI DOWLING ([phone])[facility] ([facility])[address] [place] [address] CO2 [Moles/Vol] 25 mmol/L Normal 23-31 [facility] Comment on above: Performed By: #### L [id number] ####Furniture Assembly Supervisor: DEEPALI DOWLING ([phone])[facility] ([facility])[address] [place] [address] Creatinine [Mass/Vol] 0.57 mg/dL Low 0.72-1.25 [facility] Comment on above: Performed By: #### L [id number] ####Furniture Assembly Supervisor: DEEPALI DOWLING ([phone])[facility])[address] [place] [address] GLOMERULAR FILTRATION RATE ML/MIN/1.73 SQ M.PREDICTED >90.0 Normal >60.0 [facility] Comment on above: Result Comment: Calc ulation based on the Chronic Kidney Disease Epidemiology Collaboration (CKD-EPI) equation refit without adjustment for race Performed By: #### L [id number] ####Furniture Assembly Supervisor: DEEPALI DOWLING ([phone])[facility])[address] [place] [address] [place] Glucose [Mass/Vol] 93 mg/dL Normal 82-115 [facility] Comment on above: Performed By: #### L [id number] ####Furniture Assembly Supervisor: DEEPALI DOWLING ([phone])[facility])[address] [place] [address] Potassium [Moles/Vol] 4.5 mmol/L Normal 3.5-5.1 [facility] Comment on above: Result Comment: Plas nd potassium values may be up to 0.5 mmol/L lower than serum values. Performed By: #### L [id number] ####Furniture Assembly Supervisor: DEEPALI DOWLING ([phone])[facility])[address] [place] [address] Protein [Mass/Vol] 6.2 g/dL Low 6.4-8.3 [facility] Comment on above: Performed By: #### L [id number] ####Furniture Assembly Supervisor: DEEPALI DOWLING ([phone])[facility])[address] [place] [address] Sodium [Moles/Vol] 139 mmol/L Normal 136-145 [facility] Comment on above: Performed By: #### L [id number] ####Furniture Assembly Supervisor: DEEPALI DOWLING ([phone])[facility])[address] [place] [address] Urea nitrogen [Mass/Vol] 17 mg/dL Normal 9-23 [facility] Comment on above: Performed By: #### L [id number] ####Furniture Assembly Supervisor: DEEPALI DOWLING ([phone])[facility])[address] [place] [address] Comprehensive metabolic 1998 panelon 11-21-2024 Albumin [Mass/Vol] 3.5 g/dL 3.4 - 4.8 g/dL [facility] ALP [Catalytic activity/Vol] 50 U/L 40 - 150 U/L [facility] ALT [Catalytic activity/Vol] 47 U/L High NINF - 40 U/L [facility] Anion gap [Moles/Vol] 8 mmol/L 3 - 13 mmol/L [facility] AST [Catalytic activity/Vol] 55 U/L High NINF - 34 U/L [facility] Bilirubin [Mass/Vol] 0.6 mg/dL NINF - 1.2 mg/dL [facility] Calcium [Mass/Vol] 9.5 mg/dL 8.8 - 10. 0 mg/dL [facility] Chloride [Moles/Vol] 104 mmol/L 98 - 107 mmol/L [facility] CO2 [Moles/Vol] 26 mmol/L 23 - 31 mmol/L [facility] Creatinine [Mass/Vol] 0.64 mg/dL Low 0.72 - 1.25 mg/dL [facility] GFR/1.73 sq M.predicted (S/P/Bld) [Vol rate/Area] - PINF [facility] Comment on above: Calculation based on the Chronic Kidney Disease Epidemiology Collaboration (CKD-EPI) equation refit without adjustment for race Glucose [Mass/Vol] 104 mg/dL 82 - 115 mg/dL [facility] Interpretation and review of laboratory results Abnormal [facility] Potassium [Moles/Vol] 4.1 mmol/L 3.5 - 5.1 mmol/L [facility] Comment on above: Plasma potassium carissa ues may be up to 0.5 mmol/L lower than serum values. Protein [Mass/Vol] 6.7 g/dL 6.4 - 8.3 g/dL [facility] Sodium [Moles/Vol] 138 mmol/L 136 - 145 mmol/L [facility] Urea nitrogen [Mass/Vol] 17 mg/dL 9 - 23 mg/dL [facility] Laboratory - Chemistry and C hemistry - challengeon 11-21-2024 Prostate specific Ag [Mass/Vol] 5.1 ng/mL High NINF - 0.200 ng/mL [facility] No Panel Informationon 11-21 Interpretation and review of laboratory results Abnormal [facility] Testing performed on the [employer] using a two-step chemiluminescent microparticle immunoassay method. Results obtained by different methods should not be used interchangeably. A prostate specific antigen of >0.2 ng/mL is considered as initial evidence of biochemical recurrence following radical prostatectomy. [facility] Office Visiton 11-21-2024 Follow-up visit [id number] Izabela London 1940 M Date Provider Department Center 11/21/2024 [id number]-YOZDRJKRISTEN URIAS [facility] None Family History Problem Relation Age of Onset Cancer Father 77 Comments: Colon Family Status - Relation Status Age at Father Level of Service:81563 [place] OFFICE/OUTPATIENT ESTABLISHED MOD MDM 30 MIN Reason for Visit and Comments: Follow-up [[id number]] Normal [facility] PSA TOTAL (DIAGNOSTIC POST-P ROSTATECTOMY)on 11-21-2024 PROSTATE SPECIFIC AG TOTAL 5.100 ng/mL High <=0.200 [facility] Comment on above: Result Comment: YANETH Ding COMMENTS: Testing performed on the [employer] using a two-step chemiluminescent microparticle immunoassay method. Results obtained by different methods should not be used interchangeably. A prostate specific antigen of >0.2 ng/mL is considered as initial evidence of biochemical recurrence following radical prostatectomy. Performed By: #### L [id number] ####Furniture Assembly Supervisor: DEEPALI DOWLING ([phone])[facility])[address] [place] [address] PSA TOTAL (SCREENING)on 10-26 PROSTATE SPECIFIC AG SCREEN 4.930 ng/mL High <=4.000 [facility] Comment on above: Result Comment: YANETH Ding COMMENTS: The concentration of PSA in a given specimen, determined with assays from different manufacturers, can vary due to differences in assay methods and reagent specificity. Values obtained with different assay methods cannot be used interchangeably. If, in the course of monitoring a patient, the assay method used for determining PSA levels serially is changed, additional sequential testing should be carried out. METHODOLOGY: Chemiluminescent Microparticle Immunoassay (CMIA) ANALYZER: [employer] Performed By: #### L [id number] ####Furniture Assembly Supervisor: DEEPALI DOWLING ([phone])[facility] ([facility])[address] [place] [address] Progress Noteon 11-21-2024 Progress Note Pt arrived for zoladex/zometa q12 weeks. PIV placed. CBC/CMP/PSA drawn from PIV and sent to [facility]. Pt reports feeling well. No concerns at this time. Denies any jaw/dental pain and no upcoming dental work. 1242: Ordered treatment completed. Patient discharged without any issues. Patient has a copy of next infusion appointment and verbalizes understanding. All questions answered. [facility] Progress Note Patient here to see Dr. Urias 1-Lav, 2-5ML SST drawn, 1 stick Labs sent to [facility] Progress Note Patient ID: Izabela London is a 84 y.o. male. HPI Tolerating Xtandi well. No hot flashes, seizures or back pain. he has the following oncology history 1. 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 2. S/p REPOCH chemotherapy with IT methotrexate. IT MTX started with cycle 3 and was given on day [address] scan post treatment and BMBx showed no evidence of disease hence CR. 4. Metastatic prostate cancer diagnosed Oct 2019. Metastatic sites involve bone. Under the care of Dr. Sarmiento and was getting GnRH agonist. Initially he got Lupron and then was started on Zoladex. 5. Due to rising PSA in spite of low testosterone, started on Xtandi 160 mg p.o. daily March 2021. Review of Systems - Oncology No nausea, vomiting, diarrhea, fever, night sweats, chills, cough, shortness of breath, chest pain BSA: 2.13 meters squared BP 130/70 Pulse 63 Temp 36.2 ?C (97.2 ?F) (Temporal) Ht 1.803 m (5' 10.98) Wt 90.2 kg (198 lb 14.4 oz) SpO2 98% BMI 27.76 kg/m? Physical Exam No lymphadenopathy or hepatosplenomegaly. No lower extremity edema. Lab Results Component Value Date WBC 7.2 08/23/2024 HGB 14.4 08/23/2024 HCT 43.6 08/23/2024 MCV 97.5 08/23/2024 PLT 304 08/23/2024 Lab Results Component Value Date GLUCOSE 89 08/23/2024 CALCIUM 9.0 08/23/2024 NA 134 (L) 06/24/2024 K 4.2 06/24/2024 CO2 27 08/23/2024 CL 102 06/24/2024 BUN 20 08/23/2024 CREATININE 0.52 (L) 08/23/2024 PSA Aug 2025 is 1.6 which is stable Assessment/Plan he appears to be in complete remission from Burkitt's Lymphoma standpoint. 2. Rising PSA in the setting of GnRH agonist in spite of castrate levels of testosterone. Check PSA today. On cystoscopy, bladder had metastatic prostate cancer. Certain if that is a new finding or was a day. PSA will help assist next steps. Hematuria has resolved after he passed the stone. continue Zoladex 10.8mg depot every 12 weeks Continue Xtandi 160 mg p.o. daily. Discussed some of the side effects that include hot flashes, back pain, very low risk of seizures among others. We will touch base after bone scan and proceed accordingly. Median duration of response with xtandi is 15 months check CBC, CMP and PSA prior to next visit which is in 3 month. Continue Zometa every 12 weeks. I did discuss risk of osteonecrosis of the jaw which is 1 to 2% in patients receiving Zometa 3. I have counseled him on diet and exercise. Patient verbalizes understanding and agrees with the plan. There are no diagnoses linked to this encounter. Plan as of 11/21/[address] [facility] 37on 10-03-2024 37 Follow up with lena fairchild as scheduled. Follow up in January with me as scheduled. Jeramie Ching MD [facility] Office Visiton 10-03-2024 Follow-up visit [id number] Izabela London 1940 M Date Provider Department Center 10/03/2024 [id number]-IALUTJERAMIE CHING [facility] Family History Problem Relation Age of Onset Cancer Father 77 Comments: Colon Family Status - Relation Status Age at Father Level of Service:39643 [place] OFFICE/OUTPATIENT ESTABLISHED LOW MDM 20 MIN Reason for Visit and Comments: Follow-up [[id number]] Med Refill [[id number]] - Lisinopril and carvedilol [facility] Progress Noteon 10-03-2024 Progress Note Subjective Patient ID: Izabela London is a 84 y.o. male who presents for Follow-up and Med Refill (Lisinopril and carvedilol ). HPI Patient is improved, no falls, no imbalance sx, using a cane at home. No pain complaints. BP is controlled with lisinopril and carvedilol. Follows with oncology for metastatic prostate CA. Notes some urinary frequency, no dysuria or gross hematuria. No flank pain. No buttock pain or skin ulceration sx. No chest pain or exertional dyspnea. Review of Systems Constitutional: Negative for fatigue. Respiratory: Negative for shortness of breath. Cardiovascular: Negative for chest pain. Gastrointestinal: Negative for abdominal pain. All other systems reviewed and are negative. Objective Physical Exam Vitals and nursing note reviewed. Constitutional: General: He is not in acute distress. Appearance: Normal appearance. He is normal weight. He is not ill-appearing, toxic-appearing or diaphoretic. Cardiovascular: Rate and Rhythm: Normal rate. Rhythm irregular. Heart sounds: Normal heart sounds. No murmur heard. Pulmonary: Effort: Pulmonary effort is normal. Breath sounds: Normal breath sounds. No wheezing, rhonchi or rales. Skin: General: Skin is warm and dry. Coloration: Skin is not pale. Neurological: Mental Status: He is alert. Psychiatric: Mood and Affect: Mood normal. Behavior: Behavior normal. Thought Content: Thought content normal. Judgment: Judgment normal. Assessment/Plan Diagnoses and all orders for this visit: Essential hypertension - lisinopril 10 MG tablet; Take 1 tablet (10 mg) by mouth daily. 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 Follow up with oncology as scheduled. Follow up in January with me as scheduled. Jeramie Ching MD [facility] 36on 09-18-2024 36 Called pt and he wou ld like the handicap placard mailed to him. Advised him we would mail it tomorrow and he voiced understanding. Normal [facility] 36 Patient called to ge t a new prescription for a handicap placard. Normal [facility] Laboratory - Chemistry and C hemistry - challengeon 08-31-2024 Prostate specific Ag [Mass/Vol] 1.608 ng/mL NINF - 4.000 ng/mL [facility] No Panel Informationon 08-31 Interpretation and review of laboratory results Normal [facility] Testing performed on the [employer] using the chemiluminescent microparticle immunoassay method. Results obtained by different methods should not be used interchangeably. PSA result is based on a new assay run on a new instrument and the results may not be comparable with assays run prior to 07/13/2023. [facility] Office Visiton 08-29-2024 Follow-up visit [id number] Izabela London 1940 M Date Provider Department Center 08/29/2024 [id number]-SPWLUKKRISTEN URIAS [facility] ONC None Family History Problem Relation Age of Onset Cancer Father 77 Comments: Colon Family Status - Relation Status Age at Father Level of Service:92239 [place] OFFICE/OUTPATIENT ESTABLISHED MOD MDM 30 MIN Reason for Visit and Comments: Follow-up [[id number]] Normal [facility] PSA TOTAL (DIAGNOSTIC POST-P ROSTATECTOMY)on 08-29-2024 PROSTATE SPECIFIC AG TOTAL 1.608 ng/mL Normal <4.000 [facility] Comment on above: Result Comment: YANETH Ding COMMENTS: Testing performed on the [employer] using the chemiluminescent microparticle immunoassay method. Results obtained by different methods should not be used interchangeably. PSA result is based on a new assay run on a new instrument and the results may not be comparable with assays run prior to 07/13/2023. Performed By: #### L [id number] ####Furniture Assembly Supervisor: DEEPALI DOWLING ([phone])[facility] ([address] Progress Noteon 08-29-2024 Progress Note Pt arrives today fro m OV for Zometa + Zoladex. Pt has no acute concerns or complaints on assessment. Just reports weakness due to bilateral knees. Pt denies any jaw pain or dental issues. POC reviewed. PIV placed with ease. PSA drawn and sent to [facility]. 1230 Zoladex given in L lower abdomen and tolerated well. Bandaid applied to site. Zometa infusion complete. PIV removed with catheter intact. 12 week apt scheduled and copy provided to pt's . Discharged home via wheelchair in no acute distress. Normal [facility] Progress Note Patient ID: Izabela London is a 84 y.o. male. HPI Tolerating Xtandi well. No hot flashes, seizures or back pain. He was in the hospital last month for hematuria. He had a kidney stone. 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 It was not bleeding and after passing kidney stone he has not had any further hematuria. he has the following oncology history 1. 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 2. S/p REPOCH chemotherapy with IT methotrexate. IT MTX started with cycle 3 and was given on day [address] scan post treatment and BMBx showed no evidence of disease hence CR. 4. Metastatic prostate cancer diagnosed Oct 2019. Metastatic sites involve bone. Under the care of Dr. Sarmiento and was getting GnRH agonist. Initially he got Lupron and then was started on Zoladex. 5. Due to rising PSA in spite of low testosterone, started on Xtandi 160 mg p.o. daily March 2021. Review of Systems - Oncology No nausea, vomiting, diarrhea, fever, night sweats, chills, cough, shortness of breath, chest pain BSA: There is no height or weight on file to calculate BSA. There were no vitals taken for this visit. Physical Exam No lymphadenopathy or hepatosplenomegaly. No lower extremity edema. Lab Results Component Value Date WBC 7.2 08/23/2024 HGB 14.4 08/23/2024 HCT 43.6 08/23/2024 MCV 97.5 08/23/2024 PLT 304 08/23/2024 Lab Results Component Value Date GLUCOSE 89 08/23/2024 CALCIUM 9.0 08/23/2024 NA 134 (L) 06/24/2024 K 4.2 06/24/2024 CO2 27 08/23/2024 CL 102 06/24/2024 BUN 20 08/23/2024 CREATININE 0.52 (L) 08/23/2024 PSA 05/18/24: 1.16 Assessment/Plan he appears to be in complete remission from Burkitt's Lymphoma standpoint. 2. Rising PSA in the setting of GnRH agonist in spite of castrate levels of testosterone. Check PSA today. On cystoscopy, bladder had metastatic prostate cancer. Certain if that is a new finding or was a day. PSA will help assist next steps. Hematuria has resolved after he passed the stone. continue Zoladex 10.8mg depot every 12 weeks Continue Xtandi 160 mg p.o. daily. Discussed some of the side effects that include hot flashes, back pain, very low risk of seizures among others. We will touch base after bone scan and proceed accordingly. Median duration of response with xtandi is 15 months check CBC, CMP and PSA prior to next visit which is in 3 month. Continue Zometa every 12 weeks. I did discuss risk of osteonecrosis of the jaw which is 1 to 2% in patients receiving Zometa 3. I have counseled him on diet and exercise. Patient verbalizes understanding and agrees with the plan. There are no diagnoses linked to this encounter. Plan as of 08/29/24 Normal [facility] 36on 08-18-2024 36 Recent Visits Date Type Provider Dept 07/20/24 Office Visit MD Yves Olive[facility] 02/07/24 Office Visit MD [facility] 12/22/23 Office Visit MD Yves Olive[facility] Showing recent visits within past 365 days and meeting all other requirements Future Appointments Date Type Provider Dept 10/09/24 Appointment MD Brandon Oliveiray Showing future appointments within next 90 days and meeting all other requirements Requested Prescriptions Pending Prescriptions Disp Refills tamsulosin (Flomax) 0.4 MG 24 hr capsule [Pharmacy Med Name: TAMSULOSIN HCL 0.4 MG CAPSULE] 180 capsule 3 Sig: TAKE 1 CAPSULE (0.4 MG) BY MOUTH IN THE MORNING AND 1 CAPSULE (0.4 MG) IN THE EVENING. Provider: Jeramie Ching MD Overdue for visit: No If yes - patient scheduled? No Most recent labs completed in chart? Yes Verified pharmacy: yes Verified day(s) supplied: yes Verified refill(s) needed (previous prescription showing no refills in chart): Yes Normal [facility] Basic Metabolic Profile (BMP )on 07-31-2024 BUN Normal 7-18 [facility] Comment on above: Result Comment: Canc elled via OM: Order cancelled - Patient discharged Performed By: #### L 100.0100, L500.2500 ####[facility] [address] [place], [address] BUN/CRE Normal 10-20 [facility] Comment on above: Result Comment: Canc elled via OM: Order cancelled - Patient discharged Performed By: #### L 100.0100, L500.2500 ####[facility] [address] [place], [address] CA,Total Normal 8.5-10.1 [facility] Comment on above: Result Comment: Canc elled via OM: Order cancelled - Patient discharged Performed By: #### L 100.0100, L500.2500 ####[facility] [address] [place], [address] CL Normal 98-107 [facility] Comment on above: Result Comment: Canc elled via OM: Order cancelled - Patient discharged Performed By: #### L 100.0100, L500.2500 ####[facility] [address] [place], [address] CO2 Normal 21.0-32.0 [facility] Comment on above: Result Comment: Canc elled via OM: Order cancelled - Patient discharged Performed By: #### L 100.0100, L500.2500 ####[facility] [address] [place], [address] CREAT,SERUM Normal 0.70-1.30 [facility] Comment on above: Result Comment: Canc elled via OM: Order cancelled - Patient discharged Performed By: #### L 100.0100, L500.2500 ####[facility] [address] [place], [address] EST GFR Normal >60 [facility] Comment on above: Result Comment: Canc elled via OM: Order cancelled - Patient discharged Performed By: #### L 100.0100, L500.2500 ####[facility] [address] [place], [address] EST GFR - AA Normal >60 [facility] Comment on above: Result Comment: Canc elled via OM: Order cancelled - Patient discharged Performed By: #### L 100.0100, L500.2500 ####[facility] [address] [place], [address] GAP Normal 5-15 [facility] Comment on above: Result Comment: Canc elled via OM: Order cancelled - Patient discharged Performed By: #### L 100.0100, L500.2500 ####[facility] [address] [place], [address] GLU Normal 74-106 [facility] Comment on above: Result Comment: Canc elled via OM: Order cancelled - Patient discharged Performed By: #### L 100.0100, L500.2500 ####[facility] [address] [place], [address] Potassium Normal 3.5-5.1 [facility] Comment on above: Result Comment: Canc elled via OM: Order cancelled - Patient discharged Performed By: #### L 100.0100, L500.2500 ####[facility] [address] [place], [address] Basic Metabolic Profile (BMP) Normal 136-145 [facility] Comment on above: Result Comment: Canc elled via OM: Order cancelled - Patient discharged Performed By: #### L 100.0100, L500.2500 ####[facility] [address] [place], [address] CBC W/Diff, Automatedon 10-0 Absolute Neut Normal 2.0-7.7 [facility] Comment on above: Result Comment: Canc elled via OM: Order cancelled - Patient discharged Performed By: #### L 100.0100, L500.2500 ####[facility] [address] [place], [address] HCT Normal 40-54 [facility] Comment on above: Result Comment: Canc elled via OM: Order cancelled - Patient discharged Performed By: #### L 100.0100, L500.2500 ####[facility] [address] [place], [address] HGB Normal 13.0-16.5 [facility] Comment on above: Result Comment: Canc elled via OM: Order cancelled - Patient discharged Performed By: #### L 100.0100, L500.2500 ####[facility] [address] [place], [address] MCH Normal 27.0-32.0 [facility] Comment on above: Result Comment: Canc elled via OM: Order cancelled - Patient discharged Performed By: #### L 100.0100, L500.2500 ####[facility] [address] [place], [address] MCHC Normal 32-36 [facility] Comment on above: Result Comment: Canc elled via OM: Order cancelled - Patient discharged Performed By: #### L 100.0100, L500.2500 ####[facility] [address] [place], [address] MCV Normal 80-94 [facility] Comment on above: Result Comment: Canc elled via OM: Order cancelled - Patient discharged Performed By: #### L 100.0100, L500.2500 ####[facility] [address] [place], [address] NEUT% Normal 47-70 [facility] Comment on above: Result Comment: Canc elled via OM: Order cancelled - Patient discharged Performed By: #### L 100.0100, L500.2500 ####[facility] [address] [place], [address] PLT Normal 150-450 [facility] Comment on above: Result Comment: Canc elled via OM: Order cancelled - Patient discharged Performed By: #### L 100.0100, L500.2500 ####[facility] [address] [place], [address] RBC Normal 4.6-6.2 [facility] Comment on above: Result Comment: Canc elled via OM: Order cancelled - Patient discharged Performed By: #### L 100.0100, L500.2500 ####[facility] [address] [place], [address] RDW CV Normal 11.6-14.6 [facility] Comment on above: Result Comment: Canc elled via OM: Order cancelled - Patient discharged Performed By: #### L 100.0100, L500.2500 ####[facility] [address] [place], [address] RDW SD Normal 35.1-43.9 [facility] Comment on above: Result Comment: Canc elled via OM: Order cancelled - Patient discharged Performed By: #### L 100.0100, L500.2500 ####[facility] [address] [place], [address] WBC Normal 4.4-11.0 [facility] Comment on above: Result Comment: Canc elled via OM: Order cancelled - Patient discharged Performed By: #### L 100.0100, L500.2500 ####[facility] [address] [place], [address] Basic Metabolic Profile (BMP )on 07-24-2024 BUN Normal 7-18 [facility] Comment on above: Result Comment: Canc elled via OM: Order cancelled - Patient discharged Performed By: #### L 100.0100, L500.2500 #### [facility] [address] [place], [address] BUN/CRE Normal 10-20 [facility] Comment on above: Result Comment: Canc elled via OM: Order cancelled - Patient discharged Performed By: #### L 100.0100, L500.2500 #### [facility] [address] [place], [address] CA,Total Normal 8.5-10.1 [facility] Comment on above: Result Comment: Canc elled via OM: Order cancelled - Patient discharged Performed By: #### L 100.0100, L500.2500 #### [facility] [address] [place], [address] CL Normal 98-107 [facility] Comment on above: Result Comment: Canc elled via OM: Order cancelled - Patient discharged Performed By: #### L 100.0100, L500.2500 #### [facility] [address] [place], [address] CO2 Normal 21.0-32.0 [facility] Comment on above: Result Comment: Canc elled via OM: Order cancelled - Patient discharged Performed By: #### L 100.0100, L500.2500 #### [facility] [address] [place], [address] CREAT,SERUM Normal 0.70-1.30 [facility] Comment on above: Result Comment: Canc elled via OM: Order cancelled - Patient discharged Performed By: #### L 100.0100, L500.2500 #### [facility] [address] [place], [address] EST GFR Normal >60 [facility] Comment on above: Result Comment: Canc elled via OM: Order cancelled - Patient discharged Performed By: #### L 100.0100, L500.2500 #### [facility] [address] [place], [address] EST GFR - AA Normal >60 [facility] Comment on above: Result Comment: Canc elled via OM: Order cancelled - Patient discharged Performed By: #### L 100.0100, L500.2500 #### [facility] [address] [place], [address] GAP Normal 5-15 [facility] Comment on above: Result Comment: Canc elled via OM: Order cancelled - Patient discharged Performed By: #### L 100.0100, L500.2500 #### [facility] [address] [place], [address] GLU Normal 74-106 [facility] Comment on above: Result Comment: Canc elled via OM: Order cancelled - Patient discharged Performed By: #### L 100.0100, L500.2500 #### [facility] [address] [place], [address] Potassium Normal 3.5-5.1 [facility] Comment on above: Result Comment: Canc elled via OM: Order cancelled - Patient discharged Performed By: #### L 100.0100, L500.2500 #### [facility] [address] [place], [address] Basic Metabolic Profile (BMP) Normal 136-145 [facility] Comment on above: Result Comment: Canc elled via OM: Order cancelled - Patient discharged Performed By: #### L 100.0100, L500.2500 #### [facility] [address] [place], [address] CBC W/Diff, Automatedon 09-3 0-2023 Absolute Neut Normal 2.0-7.7 [facility] Comment on above: Result Comment: Canc elled via OM: Order cancelled - Patient discharged Performed By: #### L 100.0100, L500.2500 ####[facility] [address] [place], [address] HCT Normal 40-54 [facility] Comment on above: Result Comment: Canc elled via OM: Order cancelled - Patient discharged Performed By: #### L 100.0100, L500.2500 ####[facility] [address] [place], [address] HGB Normal 13.0-16.5 [facility] Comment on above: Result Comment: Canc elled via OM: Order cancelled - Patient discharged Performed By: #### L 100.0100, L500.2500 ####[facility] [address] [place], [address] MCH Normal 27.0-32.0 [facility] Comment on above: Result Comment: Canc elled via OM: Order cancelled - Patient discharged Performed By: #### L 100.0100, L500.2500 ####[facility] [address] [place], [address] MCHC Normal 32-36 [facility] Comment on above: Result Comment: Canc elled via OM: Order cancelled - Patient discharged Performed By: #### L 100.0100, L500.2500 ####[facility] [address] [place], [address] MCV Normal 80-94 [facility] Comment on above: Result Comment: Canc elled via OM: Order cancelled - Patient discharged Performed By: #### L 100.0100, L500.2500 ####[facility] [address] [place], [address] NEUT% Normal 47-70 [facility] Comment on above: Result Comment: Canc elled via OM: Order cancelled - Patient discharged Performed By: #### L 100.0100, L500.2500 ####[facility] [address] [place], [address] PLT Normal 150-450 [facility] Comment on above: Result Comment: Canc elled via OM: Order cancelled - Patient discharged Performed By: #### L 100.0100, L500.2500 ####[facility] [address] [place], [address] RBC Normal 4.6-6.2 [facility] Comment on above: Result Comment: Canc elled via OM: Order cancelled - Patient discharged Performed By: #### L 100.0100, L500.2500 ####[facility] [address] [place], [address] RDW CV Normal 11.6-14.6 [facility] Comment on above: Result Comment: Canc elled via OM: Order cancelled - Patient discharged Performed By: #### L 100.0100, L500.2500 ####[facility] [address] [place], [address] RDW SD Normal 35.1-43.9 [facility] Comment on above: Result Comment: Canc elled via OM: Order cancelled - Patient discharged Performed By: #### L 100.0100, L500.2500 ####[facility] [address] [place], [address] WBC Normal 4.4-11.0 [facility] Comment on above: Result Comment: Canc elled via OM: Order cancelled - Patient discharged Performed By: #### L 100.0100, L500.2500 ####[facility] [address] [place], [address] Basic Metabolic Profile (BMP )on 07-17-2024 BUN Normal 7-18 [facility] Comment on above: Result Comment: Canc elled via OM: Order cancelled - Patient discharged Performed By: #### P RCC. #### [facility] [address] [place], [address] BUN/CRE Normal 10-20 [facility] Comment on above: Result Comment: Canc elled via OM: Order cancelled - Patient discharged Performed By: #### P RCC. #### [facility] [address] [place], [address] CA,Total Normal 8.5-10.1 [facility] Comment on above: Result Comment: Canc elled via OM: Order cancelled - Patient discharged Performed By: #### P RCC. #### [facility] [address] [place], [address] CL Normal 98-107 [facility] Comment on above: Result Comment: Canc elled via OM: Order cancelled - Patient discharged Performed By: #### P RCC. #### [facility] [address] [place], [address] CO2 Normal 21.0-32.0 [facility] Comment on above: Result Comment: Canc elled via OM: Order cancelled - Patient discharged Performed By: #### P RCC. #### [facility] [address] [place], [address] CREAT,SERUM Normal 0.70-1.30 [facility] Comment on above: Result Comment: Canc elled via OM: Order cancelled - Patient discharged Performed By: #### P RCC. #### [facility] [address] [place], [address] EST GFR Normal >60 [facility] Comment on above: Result Comment: Canc elled via OM: Order cancelled - Patient discharged Performed By: #### P RCC. #### [facility] [address] [place], [address] EST GFR - AA Normal >60 [facility] Comment on above: Result Comment: Canc elled via OM: Order cancelled - Patient discharged Performed By: #### P RCC. #### [facility] [address] [place], [address] GAP Normal 5-15 [facility] Comment on above: Result Comment: Canc elled via OM: Order cancelled - Patient discharged Performed By: #### P RCC. #### [facility] [address] [place], [address] GLU Normal 74-106 [facility] Comment on above: Result Comment: Canc elled via OM: Order cancelled - Patient discharged Performed By: #### P RCC. #### [facility] [address] [place], [address] Potassium Normal 3.5-5.1 [facility] Comment on above: Result Comment: Canc elled via OM: Order cancelled - Patient discharged Performed By: #### P RCC. #### [facility] [address] [place], [address] Basic Metabolic Profile (BMP) Normal 136-145 [facility] Comment on above: Result Comment: Canc elled via OM: Order cancelled - Patient discharged Performed By: #### P RCC. #### [facility] [address] [place], [address] CBC W/Diff, Automatedon 09-2 Absolute Neut Normal 2.0-7.7 [facility] Comment on above: Result Comment: Canc elled via OM: Order cancelled - Patient discharged Performed By: #### P RCC. #### [facility] [address] [place], [address] HCT Normal 40-54 [facility] Comment on above: Result Comment: Canc elled via OM: Order cancelled - Patient discharged Performed By: #### P RCC. #### [facility] [address] [place], [address] HGB Normal 13.0-16.5 [facility] Comment on above: Result Comment: Canc elled via OM: Order cancelled - Patient discharged Performed By: #### P RCC. #### [facility] [address] [place], [address] MCH Normal 27.0-32.0 [facility] Comment on above: Result Comment: Canc elled via OM: Order cancelled - Patient discharged Performed By: #### P RCC. #### [facility] [address] [place], [address] MCHC Normal 32-36 [facility] Comment on above: Result Comment: Canc elled via OM: Order cancelled - Patient discharged Performed By: #### P RCC. #### [facility] [address] [place], [address] MCV Normal 80-94 [facility] Comment on above: Result Comment: Canc elled via OM: Order cancelled - Patient discharged Performed By: #### P RCC. #### [facility] [address] [place], [address] NEUT% Normal 47-70 [facility] Comment on above: Result Comment: Canc elled via OM: Order cancelled - Patient discharged Performed By: #### P RCC. #### [facility] [address] [place], [address] PLT Normal 150-450 [facility] Comment on above: Result Comment: Canc elled via OM: Order cancelled - Patient discharged Performed By: #### P RCC. #### [facility] [address] [place], [address] RBC Normal 4.6-6.2 [facility] Comment on above: Result Comment: Canc elled via OM: Order cancelled - Patient discharged Performed By: #### P RCC. #### [facility] [address] [place], [address] RDW CV Normal 11.6-14.6 [facility] Comment on above: Result Comment: Canc elled via OM: Order cancelled - Patient discharged Performed By: #### P RCC. #### [facility] [address] [place], [address] RDW SD Normal 35.1-43.9 [facility] Comment on above: Result Comment: Canc elled via OM: Order cancelled - Patient discharged Performed By: #### P RCC. #### [facility] [address] [place], [address] WBC Normal 4.4-11.0 [facility] Comment on above: Result Comment: Canc elled via OM: Order cancelled - Patient discharged Performed By: #### P RCC. #### [facility] [address] [place], [address] Basic Metabolic Profile (BMP )on 07-10-2024 BUN Normal 7-18 [facility] Comment on above: Result Comment: Canc elled via OM: Order cancelled - Patient discharged Performed By: #### L 100.0100, L500.2500 #### [facility] [address] [place], [address] BUN/CRE Normal 10-20 [facility] Comment on above: Result Comment: Canc elled via OM: Order cancelled - Patient discharged Performed By: #### L 100.0100, L500.2500 #### [facility] [address] [place], [address] CA,Total Normal 8.5-10.1 [facility] Comment on above: Result Comment: Canc elled via OM: Order cancelled - Patient discharged Performed By: #### L 100.0100, L500.2500 #### [facility] [address] [place], [address] CL Normal 98-107 [facility] Comment on above: Result Comment: Canc elled via OM: Order cancelled - Patient discharged Performed By: #### L 100.0100, L500.2500 #### [facility] [address] [place], [address] CO2 Normal 21.0-32.0 [facility] Comment on above: Result Comment: Canc elled via OM: Order cancelled - Patient discharged Performed By: #### L 100.0100, L500.2500 #### [facility] [address] [place], [address] CREAT,SERUM Normal 0.70-1.30 [facility] Comment on above: Result Comment: Canc elled via OM: Order cancelled - Patient discharged Performed By: #### L 100.0100, L500.2500 #### [facility] [address] [place], [address] EST GFR Normal >60 [facility] Comment on above: Result Comment: Canc elled via OM: Order cancelled - Patient discharged Performed By: #### L 100.0100, L500.2500 #### [facility] [address] [place], [address] EST GFR - AA Normal >60 [facility] Comment on above: Result Comment: Canc elled via OM: Order cancelled - Patient discharged Performed By: #### L 100.0100, L500.2500 #### [facility] [address] [place], [address] GAP Normal 5-15 [facility] Comment on above: Result Comment: Canc elled via OM: Order cancelled - Patient discharged Performed By: #### L 100.0100, L500.2500 #### [facility] [address] [place], [address] GLU Normal 74-106 [facility] Comment on above: Result Comment: Canc elled via OM: Order cancelled - Patient discharged Performed By: #### L 100.0100, L500.2500 #### [facility] [address] [place], [address] Potassium Normal 3.5-5.1 [facility] Comment on above: Result Comment: Canc elled via OM: Order cancelled - Patient discharged Performed By: #### L 100.0100, L500.2500 #### [facility] [address] [place], [address] Basic Metabolic Profile (BMP) Normal 136-145 [facility] Comment on above: Result Comment: Canc elled via OM: Order cancelled - Patient discharged Performed By: #### L 100.0100, L500.2500 #### [facility] [address] [place], [address] CBC W/Diff, Automatedon - Absolute Neut Normal 2.0-7.7 [facility] Comment on above: Result Comment: Canc elled via OM: Order cancelled - Patient discharged Performed By: #### L 100.0100, L500.2500 #### [facility] [address] [place], [address] HCT Normal 40-54 [facility] Comment on above: Result Comment: Canc elled via OM: Order cancelled - Patient discharged Performed By: #### L 100.0100, L500.2500 #### [facility] [address] [place], [address] HGB Normal 13.0-16.5 [facility] Comment on above: Result Comment: Canc elled via OM: Order cancelled - Patient discharged Performed By: #### L 100.0100, L500.2500 #### [facility] [address] [place], [address] MCH Normal 27.0-32.0 [facility] Comment on above: Result Comment: Canc elled via OM: Order cancelled - Patient discharged Performed By: #### L 100.0100, L500.2500 #### [facility] [address] [place], [address] MCHC Normal 32-36 [facility] Comment on above: Result Comment: Canc elled via OM: Order cancelled - Patient discharged Performed By: #### L 100.0100, L500.2500 #### [facility] [address] [place], [address] MCV Normal 80-94 [facility] Comment on above: Result Comment: Canc elled via OM: Order cancelled - Patient discharged Performed By: #### L 100.0100, L500.2500 #### [facility] [address] [place], [address] NEUT% Normal 47-70 [facility] Comment on above: Result Comment: Canc elled via OM: Order cancelled - Patient discharged Performed By: #### L 100.0100, L500.2500 #### [facility] [address] [place], [address] PLT Normal 150-450 [facility] Comment on above: Result Comment: Canc elled via OM: Order cancelled - Patient discharged Performed By: #### L 100.0100, L500.2500 #### [facility] [address] [place], [address] RBC Normal 4.6-6.2 [facility] Comment on above: Result Comment: Canc elled via OM: Order cancelled - Patient discharged Performed By: #### L 100.0100, L500.2500 #### [facility] [address] [place], [address] RDW CV Normal 11.6-14.6 [facility] Comment on above: Result Comment: Canc elled via OM: Order cancelled - Patient discharged Performed By: #### L 100.0100, L500.2500 #### [facility] [address] [place], [address] RDW SD Normal 35.1-43.9 [facility] Comment on above: Result Comment: Canc elled via OM: Order cancelled - Patient discharged Performed By: #### L 100.0100, L500.2500 #### [facility] [address] [place], [address] WBC Normal 4.4-11.0 [facility] Comment on above: Result Comment: Canc elled via OM: Order cancelled - Patient discharged Performed By: #### L 100.0100, L500.2500 #### [facility] [address] [place], [address] MR/[id number] 07-07-2024 MR/POSTOPAN2 [facility] Medical Records Department [address] [place] [address] Anesthesia Postop Eval II 07/07/24 1428 MR#: [id number] Acct: [id number] Name: IZABELA LONDON Rep #: [id number] : 1940 84 From: William Barrett MD PCP: Dr. Jeramie Ching MD Status:DEP [facility] Y Race: C Location: [facility] Anesthesia Postop Eval I Sum Postop Eval Completion status Anesthesia document: Postop Eval 1 completed: Yes Anesthesia Postop Eval I Summary Anesthesia Postop Eval I Summary: Anesthesia Postop Eval I: Assessment Summary Airway patent Yes 07/06/24 17:24 [email or web address] Spontaneous unlabored Yes 07/06/24 17:24 [email or web address] respirations Mental status Awake,Calm 07/06/24 17:24 [email or web address] nausea No 07/06/24 17:24 [email or web address] Vomiting No 07/06/24 17:24 [email or web address] Anesthesia Postop Eval I: Fluid Summary Crystalloid volume administer 800 07/06/24 17:24 [email or web address].MDOT (ml) Colloids volume administered ( ml) Blood Product volume administered (ml) Total IV fluid infused 800 07/06/24 17:24 [email or web address] Anesthesia Postop Eval I: Summary Notes Anesthesia Complication No 07/06/24 17:24 [email or web address] Anesthesia Complication Comment: Post-operative progress note Anesthesia: Postop Eval II Evaluation Mental status: Awake and Calm Pain Level: 1 nausea: No Vomiting: No Complications Anesthesia Complication: No 07/07/24 1429 Date William Barrett MD Cosign Signature: Date CC: Signed Normal [facility] Consultation - Urologyon Consultation - Urology [facility] Medical Records Department [address] [place] [address] Consultation - Urology 07/06/24 0742 MR#: [id number] Acct: [id number] Name: IZABELA LONDON Rep #: [id number] : 1940 84 From: Shalom Hussein MD PCP: Dr. Jeramie Ching MD Status:ADM IN Location: [facility] TCU16-1 Assessment Plan Assessment/Plan (1) Ureteral calculi: PLAN: plan for cystoscopy left stent placement HPI Consult Data Date of Consult: 07/06/24 HPI Narrative Reason for Consultation: ureteral calculi left HPI Narrative: IZABELA LONDON, is a 84 male who currently is in rehab and transitional care unit developed flank pain and hematuria CT scan was done at demonstrated a 7 mm stone the distal left ureter, plan at this point would be to stabilize the patient and getting the surgery for cystoscopy left stent placement later today will make him and peel for surgery now [facility] Medical History Coronary artery disease Hyperlipidemia, unspecified Essential (primary) hypertension Burkitt lymphoma Prostate cancer Dehydration Antibiotic-associated diarrhea Stage III pressure ulcer of sacral region Weakness Debility Home Medications ???Medication ???Instructions ???Recorded ???Last Taken ???Type ascorbic acid (vitamin C) 500 mg 500 mg PO DAILY Supplement 06/24/24 06/24/24 09:30 History capsule aspirin 81 mg capsule 81 mg PO DAILY Heart 06/24/24 06/23/24 22:15 History benzonatate 100 mg capsule 100 mg PO TID PRN PRN cough 06/24/24 Unknown History calcium carbonate 500 mg-vitamin 1 tab PO DAILY supplement 06/24/24 06/24/24 09:30 History D3 5 mcg (200 unit) tablet (Oyster Shell Calcium-Vitamin D3) carvedilol 3.125 mg tablet 3.125 mg PO BID BP 06/24/24 06/24/24 09:30 History cholecalciferol (vitamin D3) 125 125 mcg PO DAILY SUPPLEMENT 06/24/24 Unknown History mcg (5,000 unit) capsule enzalutamide 40 mg capsule (Xtandi) 160 mg PO QHS Cancer 06/24/24 06/23/24 22:15 History lisinopril 10 mg tablet 10 mg PO DAILY BP 06/24/24 06/24/24 09:30 History simvastatin 20 mg tablet 20 mg PO QPM Cholesterol 06/24/24 Unknown History zinc sulfate 50 mg zinc (220 mg) 50 mg PO DAILY Supplement 06/24/24 06/24/24 09:35 History capsule (Orazinc) tamsulosin 0.4 mg capsule 0.8 mg (2 x 0.4 mg) PO QHS #0 caps 07/03/24 Unknown Rx Allergy/AdvReac Type Severity Reaction Status Date / Time No Known Allergies Allergy Verified 06/24/24 16:10 Family History Father , at 77. Colon cancer Surgical History History of total left knee replacement History of tonsillectomy and adenoidectomy History of arteriovenous graft History of cataract surgery History of coronary artery stent placement History of colonoscopy History of bone graft History of back surgery Social History household members: spouse Smoking Status: Former smoker alcohol intake: current details: Glass of wine per week. substance use type: does not use ROS Constitutional Constitutional: Denies chills, fever(s) or malaise Eyes Eyes: Denies blurry vision or change in vision ENT HEENT: Reports none Cardiovascular Cardiovascular: Denies chest pain or palpitations Respiratory/Chest Respiratory/Chest: Denies cough or shortness of breath with exertion Gastrointestinal Gastrointestinal: Denies abdominal pain, constipation or diarrhea Musculoskeletal Musculoskeletal: Denies back pain, joint stiffness or joint swelling Integumentary Integumentary: Denies dry skin, jaundice, lesions or rash Neurologic Neurologic: Denies confusion, syncope or weakness Psychiatric Psychiatric: Reports none; Denies anxiety or depression Endocrine Endocrinology: Denies excessive sweating, fatigue or flushing Hematologic/Lymphatic Hematologic/Lymphatic: Denies anemia, easy bleeding or easy bruising Physical Exam Const alert and oriented x3 General Appearance: cooperative HEENT normocephalic and head/scalp atraumatic Eyes PERRL and EOMs intact bilaterally Neck supple, no JVD and no carotid bruits Resp normal respiratory effort, normal air movement and clear to auscultation bilaterally Cardio regular rate and no murmurs GI normal to inspection, nondistended, normoactive bowel sounds and soft to palpation Extremity normal capillary refill General Extremity: no tenderness to palpation of joints or extremities; Negative for edema Skin no rashes or lesions noted and no wounds General Skin Exam: no breakdown Neuro CN's II-XII intact bilaterally Psych affect normal Appearance: appropriate Medical Records Data Attestation: I reviewed the (more content not included)... Normal [facility] Discharge Instructionon 06-25 Discharge Instruction [facility] Medical Records Department [address] [place] [address] Instructions for Home/Discharge Instructions 07/06/248 MR#: [id number] Acct: [id number] Name: IZABELA LONDON Rep #: [id number] : 1940 84 From: Shalom Hussein MD PCP: Dr. Jeramie Ching MD Status:REG [facility] Discharge Instructions Diet Discharge Diet: No restrictions Activity Discharge Activity: Return to Normal Activity Dressing / Incision Call your doctor if you observe: Fever of 101 or Higher Catheter: Freitas to leg bag and Freitas to large bag Drain: [place] Follow Up Care Please Follow Up With: Shalom Hussein MD When: Call [phone] for an appointment Test Results: Test results from this visit will be discussed in further detail at your follow-up appointment, if applicable. Discharge Plan Admission Attending Provider: Shalom Hussein Primary Care Provider: Jeramie Ching Instructions Print Language: Dutch Discharge Orders/Prescriptions Prescriptions: No Action calcium carbonate-vitamin D3 [Oyster Shell Calcium-Vit D3] 500 mg-5 mcg (200 unit) tablet 1 tab PO DAILY carvedilol 3.125 mg tablet 3.125 mg PO BID cholecalciferol (vitamin D3) 125 mcg (5,000 unit) capsule 125 mcg PO DAILY lisinopril 10 mg tablet 10 mg PO DAILY simvastatin 20 mg tablet 20 mg PO QPM Xtandi 40 mg capsule 160 mg PO QHS zinc sulfate [Orazinc] 50 mg zinc (220 mg) capsule 50 mg PO DAILY ascorbic acid (vitamin C) 500 mg capsule 500 mg PO DAILY aspirin 81 mg capsule 81 mg PO DAILY tamsulosin 0.4 mg Capsule 0.4 mg PO 4X/DAY Referrals / Follow Up: Jeramie Ching MD [Primary Care Provider] - Disposition Disposition (needs filled in before D/C Order can be placed): Home, Self Care 07/06/241718 Shalom Hussein MD CC: Dr. Jeramie Ching MD Signed [facility] MR/POSTOP.ANEon 07-06-2024 MR/POSTOP.[facility] Medical Records Department [address] [place] [address] Anesthesia Postop Eval I 07/06/24 172 MR#: [id number] Acct: [id number] Name: IZABELA LONDON Rep #: [id number] : 1940 84 From: Tommy Morse PCP: Dr. Jeramie Ching MD Status:REG [employer] Race: C Location: [place] [address] Anesthesia: Postop Eval I Current Vital Signs Temperature: 96.9 F Pulse Rate: 74 Blood Pressure: 140/73 Respiratory Rate: 16 Pulse Ox: 95 Oxygen Delivery Method: Room Air Assessment Airway patent: Yes Spontaneous unlabored respirations: Yes Mental status: Awake and Calm nausea: No Vomiting: No Anesthesia Complication: No Fluid Hydration Crystalloid volume administer (ml): 800 Total IV fluid infused: 800 Progress Note Anesthesia document: Postop Eval 1 completed: Yes 07/06/241723 Date Tommy Qureshi Signature: Date CC: Signed Normal [facility] Operative Reporton Operative Report [facility] Medical Records Department [address] [place] [address] Operative Report 07/06/24 1712 MR#: [id number] Acct: [id number] Name: IZABELA LONDON Rep #: [id number] : 1940 84 From: Shalom Hussein MD PCP: Dr. Jeramie Ching MD Status:REG [facility] Location: [place] [address] Report of Operation Date of Procedure: 07/06/24 Pre-Operative Diagnosis: Left ureteral calculi Post-Operative Diagnosis: Left ureteral calculi Surgery/Procedure Performed:: Cystoscopy balloon dilation of left ureter, and left ureteroscopy laser lithotripsy of stone, and TURBT. Description of Surgical Findings:: This is a patient who presents to the hospital for treatment for an obstructing distal ureter calculi. I discussed with the patient how the surgery would be performed and we reviewed the risks and benefits of the surgery. The risk and benefits include the risk of failure to remove the stone completely and that the patient may need multiple procedures. We discussed the risk of an infection, the risk of bleeding. We discussed the very rare risk of serious complicated injury to the ureter. The patient understands that if the stone is not able to be removed safely that we may abort the procedure and place a stent. After full discussion and all questions address with the patient the consent form was signed the side was marked appropriately and the patient was taken back to the operating room for the procedure. The patient was taken back to the operating room. After induction of anesthesia by the anesthesiology team the patient was placed in dorsolithotomy position. The genitals were prepped and draped in usual sterile fashion. I went into the bladder with a 21 Turkish rigid cystourethroscope through the urethra. Upon entering the bladder I inspected the trigone the left and right ureteral orifice and the bladder itself. I then cannulated the left ureteral orifice and advanced a 0.038 Glidewire up into the kidney. Then a ureteral balloon dilator was advanced over the wire and the distal ureter was balloon dilated with a 12 Fr x 5cm balloon dilator. After 3 minutes of dilating the ureter the balloon was backloaded off the 0.038 glidewire then the safety wire was left in place. I then placed a second 0.038 Guidewire as a working wire and over the working 0.038 guidewire I went in with the serenity rigide 7.5fr ureteroscope. I was able to go inside with the 7.5Fr serenity rigid utereroscope and I pulled out the working guidewire and then through the 7.5 fr simirigid ureteroscope I engage the stone in the distal ureter with laser lithotripsy using a 270miron laser fiber with energy setting of 6 Hertz and 0.6 J until the stone was lasered into tiny little pieces that should pass on their own. I then backed out of the ureter left the wire in place and then over the wire, all stone fragement removed. I then drained the patient's bladder the a tumor was see on the median lobe of the protate and proceeded with TURBT. I went into the bladder with a 30 degree lens and a cystoscope was performed and identified the tumor the tumors which was about 2.5 centimeters in size and occupying mostly the medain lobe of the prostate.. I then switched over to the 70 degree lens and inspected the rest of the bladder with a 70 degree lens to make sure there is no other tumors in the bladder and to identify all the tumor locations. The right and left ureteral orifice were identified. The tumor was not involved in the ureteral orifices. I then placed the Olympus bipolar resectoscope with a large loop into the bladder. I then started resected the tumor and started superficially shaving small little pieces working my way to the base of the tumor. The tumor pieces were then flushed out of the bladder and continued resecting the tumor until finally I got down to the base of the tumor on the median lobe. I then cauterized extensively the tumor base and also circumferentially around where the tumor was. Again we made sure to evacuate all the pieces out the bladder. I made sure there was no more bleeding from the base of the bladder and then over the tumor pieces were then evacuated out and sent off as a specimen. After the resection of the entire tumor was completed then freitas catheter was placed, he will go home with a freitas. Surgeon: Shalom Hussein Type of Anesthesia: General Drains: freitas 16 fr Estimated Blood Loss (mL): 0 Admit VTE Documentation VTE Present on Admission: No VTE Mechan Device Prophylaxis: SCD's VTE Pharm Prophylaxis ordered?: No 07/06/24 2122 Cosigner Signature (if applicable): CC: Dr. Jeramie Ching MD; Dr. Shalom Hussein MD Signed Normal [facility] RCC (add)on 07-06-2024 RCC (add) --- Patient Age/Sex Location Account Attending Physician IZABELA LONDON 84/M [facility] [id number] Dr. Shalom Hussein MD Specimen: [id number] Received: 07/10/24 Status: SANTIAGO Sneed Num: [id number] Spec Type: IMMUNO Subm Dr: Dr. Shalom Hussein MD PHYSICIAN INSTITUTION [place] [address] SPECIMEN INFORMATION: Tissue Source: Bladder tissue Clinical Info: Left ureteral calculi Specimen Number: [id number] CPT code: 30936,18870x33 METHODOLOGY: Deparaffinized sections of prefer/formalin-fixed tissue or PAP/DQ stained slides are incubated with monoclonal/polyclonal antibodies/oligonucleot heath probes. Localization is made via biotin free immunoperoxidase method. Appropriate controls are performed and reacted as expected. Results on target cell population are indicated in the following table: RESULTS: ANTIBODY / CLONE RESULT AE1-3 (AE1/AE3/PCK26) positive CK7 (OV-TL12/30) negative CK8 (76tznyH99) positive CK20 (KS20.8) negative CDX2 (FYV3386B) negative 34BE12 (34BE12) positive, focal, dim RCC (PN-15) negative PSAP (PASE/4LJ) positive CK5-6 (D5 1684) negative P40 (BC28) negative CEA (11-7/TF-3HB-1) negative P53 (DO-7) positive, wild type Ki-67 (30-9) positive, 40% Uroplakin III (SP73) negative These tests were developed and their performance characteristics determined by [facility]. They may not have been cleared or approved by the U.S. Food and Drug Administration. The FDA has determined that such clearance or approval is not necessary. The above immunohistochemical/stephon Tere markers are ordered and reviewed by the Pathologist. INTERPRETATION: Urinary bladder tissue, ureteroscopy: Infiltrating carcinoma. COMMENT: A prostatic primary is favored. Patient Age/Sex Location Account Attending Physician IZABELA LONDON 84/M [facility] [id number] Dr. Shalom Hussein MD INTERPRETATION: (Continued) Case has been reviewed in consultation with Dr. Brock who concurs with the above diagnosis. IDC:[email or web address] 07/12/2024 Signed (signature on file) Dr. Papito Graves, 07/13/24 6430 Normal [facility] Comment on above: Performed By: #### P RCC. #### [facility] [address] [place], [place], [address] Surgery Specimen Level Von 0 07-06-2024 Surgery Specimen Level V Patient Age/Sex Location Account Attending Physician IZABELA LONDON 84/[facility] [id number] Dr. Shalom Hussein MD Specimen: [id number] Received: 07/06/24 Status: SANTIAGO Sneed Num: [id number] Spec Type: TURB Subm Dr: Dr. Shalom Hussein MD HEADER OPERATION: Ureteroscopy, laser PRE-OP DIAGNOSIS: Left ureteral calculi TISSUE SUBMITTED: Bladder tissue MICROSCOPIC DIAGNOSIS Urinary bladder, transurethral resection: Consistent with metastatic prostatic carcinoma. See cancer template below. AM.mr 07/10/2024 COMMENT BLADDER CANCER (TUR) SUMMARY Procedure: Transurethral resection of bladder tumor (TURBT) Tumor site: Not specified Histologic type: Consistent with Invasive prostatic carcinoma Associated epithelial lesions: None identified Histologic grade: 2/3 Tumor configuration: Non-papillary Muscularis propria presence: Not present in biopsy Lymph vascular invasion: Not identified Tumor extension: Tumor invades the lamina propria (subepithelial connective tissue). Additional pathologic findings: Tumor necrosis and calcific debris. PATHOLOGIC STAGE: T1 Nx Mx The above summary is in compliance with [employer] (CAP) Cancer Protocols Checklist and [place] Joint Committee on Cancer (AJCC), Staging Manual, 8th Ed. Immunohistochemistry ([id number]) supports the above diagnosis. Case has been reviewed in consultation with Dr. Brock who concurs with the above diagnosis. IDC:[email or web address] MICROSCOPIC DESCRIPTION Slides are reviewed. Patient Age/Sex Location Account Attending Physician IZABELA LONDON 84/[facility] [id number] Dr. Shalom Hussein MD GROSS DESCRIPTION Received in fixative is one container labeled with the patient's name and designated Bladder tumor. The specimen consists of multiple irregular fragments of sanford-brown soft tissue mixed with fragments of blood clot and stone that in aggregate measure 2.5 x 2.0 x 0.2 cm. The specimen is totally submitted in one cassette. 07/07/2024 TC:0 CPT:62480 Patient Age/Sex Location Account Attending Physician IZABELA LONDON 84/[facility] [id number] Dr. Shalom Hussein MD Signed (signature on file) Dr. Papito Graves, 07/11/24 1256 Normal [facility] Comment on above: Performed By: #### P SUV ####[facility] [id number] [place], [place], [address] Abdomen/Pelvis without Conto n 07-04-2024 Abdomen/Pelvis without Cont [facility] [facility] Imaging Services [address], [place] [address] Abdomen/Pelvis without Cont MR#: [id number] Acct: [id number] Name: IZABELA LONDON Rep #: [id number] : [id number] 84 From: Jimenez Avila MD PCP: Dr. Jeramie Ching MD Status: [facility] Study: Abdomen/Pelvis without Cont Date of Exam: 06/25 Exam# [id number] Ordering [place]: [place] [id number] STUDY: CT ABDOMEN AND PELVIS WITHOUT CONTRAST REASON FOR EXAM: Male, 84 years old. Pain. History of renal stones. RADIATION DOSAGE (If Supplied By Facility): CTDIvol = ( 13.43 ) mGy, DLP = ( 708.02 ) mGycm TECHNIQUE: Transaxial images were obtained from the dome of the diaphragm to the symphysis pubis without oral contrast, and without intravenous contrast. Sagittal and coronal images were reconstructed. CT scan performed according to ALARA principles. Automated exposure control used during exam. COMPARISON: No relevant prior comparison study available FINDINGS: Evaluation of the abdominal viscera is limited in the absence of intravenous contrast. LOWER THORAX: There is bibasilar which may be due to atelectasis, but a component of infection cannot be excluded. There are coronary artery calcifications. The visualized portions of the heart and pericardium are within normal limits. GALLBLADDER / BILE DUCTS: There are no calcified gallstones present. The common bile duct is normal in caliber. There are no calcified ductal stones. LIVER: The liver demonstrates an unremarkable unenhanced appearance. SPLEEN: The spleen is normal in size. PANCREAS: The pancreas demonstrates an unremarkable unenhanced appearance. ADRENAL GLANDS: The adrenal glands are within normal limits. KIDNEYS / BLADDER: There is a 7 mm stone in the left distal ureter with minimal left hydronephrosis. There are bilateral subcentimeter nonobstructing renal collecting system stones, measuring 2 to 3 mm. There are no right ureteral stones. There is no right hydronephrosis. There are simple cysts in the right kidney. These are benign and do not require follow-up. The urinary bladder is partially distended and appears grossly unremarkable. STOMACH / BOWEL: Normal visualized stomach. There is no bowel obstruction or inflammation. There is a large amount of stool in the colon, consistent with constipation. The appendix is visualized and appears normal. PERITONEUM / RETROPERITONEUM: There is no abdominal or pelvic free air, free fluid or fluid collection. There is no abnormal soft tissue mass identified. There is no abdominal or pelvic lymphadenopathy. VESSELS: The aorta is normal in caliber. The IVC is unremarkable. BONES: The patient is status post posterior fusion of L4/L5. There are degenerative changes noted in the spine. There are no destructive osseous lesions. SOFT TISSUES: The visualized soft tissues are within normal limits. CT/Abdomen/Pelvis without Cont IMPRESSION: 7 mm stone in the left distal ureter with minimal left hydronephrosis. Bilateral subcentimeter nonobstructing renal collecting system stones. No right ureteral stones. No right hydronephrosis. No bowel obstruction or inflammation. Constipation. Normal appendix. Bibasilar consolidation which may be due to atelectasis, but a component of infection cannot be excluded. Atherosclerosis and coronary artery disease. Electronically Signed: Jimenez Avila MD at 8:08 EDT , CC: Dr. Jeramie Ching MD; Dr. Keaton Rader MD Dry Goods Clerk: Signed Normal [facility] Urine Cultureon 07-04-2024 URC Culture exhibits no growth. Normal [facility] Comment on above: Performed By: #### L 400.0001, M100.2200 ####[facility] [address] [place], [address] Basic Metabolic Profile (BMP )on 07-03-2024 BUN/CRE 52.1 RATIO High 10-20 [facility] Comment on above: Performed By: #### L 100.0100, L500.2500 ####[facility] [address] [place], [address] CA,Total 9.1 mg/dL Normal 8.5-10.1 [facility] Comment on above: Performed By: #### L 100.0100, L500.2500 ####[facility] [address] [place], [address] Chloride [Moles/Vol] 101 mmol/L Normal 98-107 [facility] Comment on above: Performed By: #### L 100.0100, L500.2500 ####[facility] [address] [place], [address] CO2 [Moles/Vol] 28.0 mmol/L Normal 21.0-32.0 [facility] Comment on above: Performed By: #### L 100.0100, L500.2500 ####[facility] [address] [place], [address] Creatinine [Mass/Vol] 0.56 mg/dL Low 0.70-1.30 [facility] Comment on above: Result Comment: The validity of the calculated GFR GFRAA in patients over 70 years has not been determined. Clinical correlation is essential. Performed By: #### L 100.0100, L500.2500 ####[facility] [address] [place], [address] ECRCL 73.21 ml/min Normal [facility] Comment on above: Performed By: #### L 100.0100, L500.2500 ####[facility] [address] [place], [address] EST GFR - AA 180 mL/min Normal >60 [facility] Comment on above: Result Comment: Afri can [place]er GFR Calc Performed By: #### L 100.0100, L500.2500 ####[facility] [address] [place], [address] GAP 5 Normal 5-15 [facility] Comment on above: Performed By: #### L 100.0100, L500.2500 ####[facility] [address] [place], [address] GFR/1.73 sq M.predicted among non-blacks MDRD (S/P/Bld) [Vol rate/Area] 149 mL/min/{1.73_m2} Normal >60 [facility] Comment on above: Result Comment: Non- GFR Calc Performed By: #### L 100.0100, L500.2500 ####[facility] [address] [place], [address] Glucose [Mass/Vol] 119 mg/dL High 74-106 [facility] Comment on above: Result Comment: Fast ing Glucose result from 100 to 125 mg/dL suggests IMPAIRED HOMEOSTASIS per A.D.A. criteria. Performed By: #### L 100.0100, L500.2500 ####[facility] [address] [place], [address] Potassium [Moles/Vol] 4.6 mmol/L Normal 3.5-5.1 [facility] Comment on above: Performed By: #### L 100.0100, L500.2500 ####[facility] [address] [place], [address] Sodium [Moles/Vol] 134 mmol/L Low 136-145 [facility] Comment on above: Performed By: #### L 100.0100, L500.2500 ####[facility] [address] [place], [address] Urea nitrogen [Mass/Vol] 29 mg/dL High 7-18 [facility] Comment on above: Performed By: #### L 100.0100, L500.2500 ####[facility] [address] [place], [address] CBC W/Diff, Automatedon 09-0 9-2023 Absolute Lymph 2.25 X10 3/uL Normal 0.83-4.51 [facility] Comment on above: Performed By: #### L 100.0100, L500.2500 ####[facility] [address] [place], [address] Absolute Neut 5.1 X10 3/uL Normal 2.0-7.7 [facility] Comment on above: Performed By: #### L 100.0100, L500.2500 ####[facility] [address] [place], [address] Basophils/100 WBC (Bld) 0.7 % Normal 0-1 [facility] Comment on above: Performed By: #### L 100.0100, L500.2500 ####[facility] [address] [place], [address] Eosinophils/100 WBC (Bld) 1.8 % Normal 0-5 [facility] Comment on above: Performed By: #### L 100.0100, L500.2500 ####[facility] [address] [place], [address] Erythrocyte distribution width (RBC) [Ratio] 13.6 % Normal 11.6-14.6 [facility] Comment on above: Performed By: #### L 100.0100, L500.2500 ####[facility] [address] [place], [address] Hematocrit (Bld) [Volume fraction] 41.3 % Normal 40-54 [facility] Comment on above: Performed By: #### L 100.0100, L500.2500 ####[facility] [address] [place], [address] Hemoglobin (Bld) [Mass/Vol] 13.5 g/dL Normal 13.0-16.5 [facility] Comment on above: Performed By: #### L 100.0100, L500.2500 ####[facility] [address] [place], [address] IG% 0.500 Normal 0.0-0.9 [facility] Comment on above: Result Comment: IG% - Immature Granulocytes (promyelocytes, myelocytes and metamyelocytes) > 1% indicates that a LEFT SHIFT is Present. Performed By: #### L 100.0100, L500.2500 ####[facility] [address] [place], [address] Lymphocytes/100 WBC (Bld) 26.6 % Normal 19-41 [facility] Comment on above: Performed By: #### L 100.0100, L500.2500 ####[facility] [address] [place], [address] MCH (RBC) [Entitic mass] 31.8 pg Normal 27.0-32.0 [facility] Comment on above: Performed By: #### L 100.0100, L500.2500 ####[facility] [address] [place], [address] MCHC (RBC) [Mass/Vol] 32.7 g/dL Normal 32-36 [facility] Comment on above: Performed By: #### L 100.0100, L500.2500 ####[facility] [address] [place], [address] MCV (RBC) [Entitic vol] 97.2 fL High 80-94 [facility] Comment on above: Performed By: #### L 100.0100, L500.2500 ####[facility] [address] [place], [address] Monocytes/100 WBC (Bld) 9.6 % Normal 0-10 [facility] Comment on above: Performed By: #### L 100.0100, L500.2500 ####[facility] [address] [place], [address] Neutrophils/100 WBC (Bld) 60.8 % Normal 47-70 [facility] Comment on above: Performed By: #### L 100.0100, L500.2500 ####[facility] [address] [place], [address] Nucleated RBC (Bld) [#/Vol] 0 10*3/uL Normal 0-5 [facility] Comment on above: Performed By: #### L 100.0100, L500.2500 ####[facility] [address] [place], [address] Platelet mean volume (Bld) [Entitic vol] 9.5 fL Normal 6.2-12.0 [facility] Comment on above: Performed By: #### L 100.0100, L500.2500 ####[facility] [address] [place], [address] Platelets (Bld) [#/Vol] 269 10*3/uL Normal 150-450 [facility] Comment on above: Performed By: #### L 100.0100, L500.2500 ####[facility] [address] [place], [address] RBC (Bld) [#/Vol] 4.25 10*6/uL Low 4.6-6.2 [facility] Comment on above: Performed By: #### L 100.0100, L500.2500 ####[facility] [address] [place], [address] RDW SD 48.8 fl High 35.1-43.9 [facility] Comment on above: Performed By: #### L 100.0100, L500.2500 ####[facility] [address] [place], [address] WBC (Bld) [#/Vol] 8.5 10*3/uL Normal 4.4-11.0 [facility] Comment on above: Performed By: #### L 100.0100, L500.2500 ####[facility] [address] [place], [address] Urinalysis, Completeon 07-03 AMORPHOUS 1+ URATE Normal [facility] Comment on above: Order Comment: COLLE CTOR TO SPECIFY Performed By: #### L 400.0001, M1.2199 ####[facility] [address] [place], [address] EPI,SQUAMOUS 0-5 SEEN Normal 0-5 [facility] Comment on above: Order Comment: COLLE CTOR TO SPECIFY Performed By: #### L 400.0001, M100.2200 ####[facility] [address] [place], [address] RBC 50-100 SEEN Normal 0-5 [facility] Comment on above: Order Comment: COLLE CTOR TO SPECIFY Performed By: #### L 400.0001, M100.2200 ####[facility] [address] [place], [address] WBC 0-5 SEEN Normal 0-5 [facility] Comment on above: Order Comment: COLLE CTOR TO SPECIFY Performed By: #### L 400.0001, M100.2200 ####[facility] [address] [place], [address] BACTERIA 0 SEEN Normal None Seen [facility] Comment on above: Order Comment: COLLE CTOR TO SPECIFY Performed By: #### L 400.0001, M100.2200 ####[facility] [address] [place], [address] Mucus Ql (Urine sed) 0 SEEN Normal [facility] Comment on above: Order Comment: COLLE CTOR TO SPECIFY Performed By: #### L 400.0001, M100.2200 ####[facility] [address] [place], [address] Lipid Profileon 06-28-2024 Cholesterol [Mass/Vol] 125 mg/dL Normal 200 [facility] Comment on above: Result Comment: <200 mg/dL Desirable 200-240 mg/dL Borderline >240 mg/dL High Risk Performed By: #### L 506.1000, L500.4100 #### [facility] [address] [place], [address] Cholesterol in HDL [Mass/Vol] 45 mg/dL Normal [facility] Comment on above: Result Comment: The drugs N-Acetylcysteine and Metamizole may falsely depress this assay. Reference Range HDL <40 mg/dL Low HDL Cholesterol HDL >or= 60 mg/dL High HDL Cholesterol Performed By: #### L 506.1000, L500.4100 #### [facility] [address] [place], [address] Cholesterol in LDL [Mass/Vol] 61 mg/dL Normal 0-130 [facility] Comment on above: Performed By: #### L 506.1000, L500.4100 #### [facility] [address] [place], [address] Cholesterol in VLDL [Mass/Vol] 19 mg/dL Normal 5-40 [facility] Comment on above: Performed By: #### L 506.1000, L500.4100 #### [facility] [address] [place], [address] Triglyceride [Mass/Vol] 94 mg/dL Normal [facility] Comment on above: Result Comment: The drugs N-Acetylcysteine and Metamizole may falsely depress this assay. Serum Triglycerides Reference Interval Normal <150 mg/dL Borderline high 150 - 199 mg/dL High 200 - 499 mg/dL Very High > or = 500 mg/dL Performed By: #### L 506.1000, L500.4100 #### [facility] [address], [address] Vitamin D,25 Hydroxyon 06-28 Vitamin D 25-OH 38.4 ng/mL Normal [facility] Comment on above: Result Comment: Mana min D 25(OH) Status Range Deficiency <20 ng/mL (50nmol/L) Insufficiency 20 - 30 ng/mL (50 - 75 nmol/L) Sufficiency 30 - 100 ng/mL (75 - 250 nmol/L) Toxicity >100 ng/mL (>250 nmol/L) Performed By: #### L 506.1000, L500.4100 #### [facility] [address] [place], [address] Basic Metabolic Profile (BMP )on 06-25-2024 BUN/CRE 33.5 RATIO High 10-20 [facility] Comment on above: Performed By: #### L 500.2500, L100.0100 #### [facility] [address] [place], [address] CA,Total 8.8 mg/dL Normal 8.5-10.1 [facility] Comment on above: Performed By: #### L 500.2500, L100.0100 #### [facility] [address] [place], [address] Chloride [Moles/Vol] 103 mmol/L Normal 98-107 [facility] Comment on above: Performed By: #### L 500.2500, L100.0100 #### [facility] [address] [place], [address] CO2 [Moles/Vol] 29.0 mmol/L Normal 21.0-32.0 [facility] Comment on above: Performed By: #### L 500.2500, L100.0100 #### [facility] [address] [place], [address] Creatinine [Mass/Vol] 0.51 mg/dL Low 0.70-1.30 [facility] Comment on above: Result Comment: The validity of the calculated GFR GFRAA in patients over 70 years has not been determined. Clinical correlation is essential. Performed By: #### L 500.2500, L100.0100 #### [facility] [address] [place], [address] ECRCL 73.21 ml/min Normal [facility] Comment on above: Performed By: #### L 500.2500, L100.0100 #### [facility] [address] [place], [address] EST GFR - AA 200 mL/min Normal >60 [facility] Comment on above: Result Comment: Afri can [place] GFR Calc Performed By: #### L 500.2500, L100.0100 #### [facility] [address] [place], [address] GAP 7 Normal 5-15 [facility] Comment on above: Performed By: #### L 500.2500, L100.0100 #### [facility] [address] [place], [address] GFR/1.73 sq M.predicted among non-blacks MDRD (S/P/Bld) [Vol rate/Area] 165 mL/min/{1.73_m2} Normal >60 [facility] Comment on above: Result Comment: Non- GFR Calc Performed By: #### L 500.2500, L100.0100 #### [facility] [address] [place], [address] Glucose [Mass/Vol] 113 mg/dL High 74-106 [facility] Comment on above: Result Comment: Fast ing Glucose result from 100 to 125 mg/dL suggests IMPAIRED HOMEOSTASIS per A.D.A. criteria. Performed By: #### L 500.2500, L100.0100 #### [facility] [address] [place], [address] Potassium [Moles/Vol] 4.4 mmol/L Normal 3.5-5.1 [facility] Comment on above: Performed By: #### L 500.2500, L100.0100 #### [facility] [address] [place], [address] Sodium [Moles/Vol] 139 mmol/L Normal 136-145 [facility] Comment on above: Performed By: #### L 500.2500, L100.0100 #### [facility] [address] [place], [address] Urea nitrogen [Mass/Vol] 17 mg/dL Normal 7-18 [facility] Comment on above: Performed By: #### L 500.2500, L100.0100 #### [facility] [address] [place], [address] CBC W/Diff, Automatedon 09-0 -2023 Absolute Lymph 2.30 X10 3/uL Normal 0.83-4.51 [facility] Comment on above: Performed By: #### L 500.2500, L100.0100 #### [facility] [address] [place], [address] Absolute Neut 4.3 X10 3/uL Normal 2.0-7.7 [facility] Comment on above: Performed By: #### L 500.2500, L100.0100 #### [facility] [address] [place], [address] Basophils/100 WBC (Bld) 0.6 % Normal 0-1 [facility] Comment on above: Performed By: #### L 500.2500, L100.0100 #### [facility] [address] [place], [address] Eosinophils/100 WBC (Bld) 3.5 % Normal 0-5 [facility] Comment on above: Performed By: #### L 500.2500, L100.0100 #### [facility] [address] [place], [address] Erythrocyte distribution width (RBC) [Ratio] 13.8 % Normal 11.6-14.6 [facility] Comment on above: Performed By: #### L 500.2500, L100.0100 #### [facility] [address] [place], [address] Hematocrit (Bld) [Volume fraction] 40.9 % Normal 40-54 [facility] Comment on above: Performed By: #### L 500.2500, L100.0100 #### [facility] [address] [place], [address] Hemoglobin (Bld) [Mass/Vol] 13.3 g/dL Normal 13.0-16.5 [facility] Comment on above: Performed By: #### L 500.2500, L100.0100 #### [facility] [address] [place], [address] IG% 0.500 Normal 0.0-0.9 [facility] Comment on above: Result Comment: IG% - Immature Granulocytes (promyelocytes, myelocytes and metamyelocytes) > 1% indicates that a LEFT SHIFT is Present. Performed By: #### L 500.2500, L100.0100 #### [facility] [address] [place], [address] Lymphocytes/100 WBC (Bld) 29.6 % Normal 19-41 [facility] Comment on above: Performed By: #### L 500.2500, L100.0100 #### [facility] [address] [place], [address] MCH (RBC) [Entitic mass] 31.5 pg Normal 27.0-32.0 [facility] Comment on above: Performed By: #### L 500.2500, L100.0100 #### [facility] [address] [place], [address] MCHC (RBC) [Mass/Vol] 32.5 g/dL Normal 32-36 [facility] Comment on above: Performed By: #### L 500.2500, L100.0100 #### [facility] [address] [place], [address] MCV (RBC) [Entitic vol] 96.9 fL High 80-94 [facility] Comment on above: Performed By: #### L 500.2500, L100.0100 #### [facility] [address] [place], [address] Monocytes/100 WBC (Bld) 11.1 % High 0-10 [facility] Comment on above: Performed By: #### L 500.2500, L100.0100 #### [facility] [address] [place], [address] Neutrophils/100 WBC (Bld) 54.7 % Normal 47-70 [facility] Comment on above: Performed By: #### L 500.2500, L100.0100 #### [facility] [address] [place], [address] Nucleated RBC (Bld) [#/Vol] 0 10*3/uL Normal 0-5 [facility] Comment on above: Performed By: #### L 500.2500, L100.0100 #### [facility] [address] [place], [address] Platelet mean volume (Bld) [Entitic vol] 9.4 fL Normal 6.2-12.0 [facility] Comment on above: Performed By: #### L 500.2500, L100.0100 #### [facility] [address] [place], [address] Platelets (Bld) [#/Vol] 239 10*3/uL Normal 150-450 [facility] Comment on above: Performed By: #### L 500.2500, L100.0100 #### [facility] [address] [place], [address] RBC (Bld) [#/Vol] 4.22 10*6/uL Low 4.6-6.2 [facility] Comment on above: Performed By: #### L 500.2500, L100.0100 #### [facility] [address] [place], [address] RDW SD 49.2 fl High 35.1-43.9 [facility] Comment on above: Performed By: #### L 500.2500, L100.0100 #### [facility] [address] [place], [address] WBC (Bld) [#/Vol] 7.8 10*3/uL Normal 4.4-11.0 [facility] Comment on above: Performed By: #### L 500.2500, L100.0100 #### [facility] [address] [place], [address] CBC W Auto Differential pane l (Bld)on 06-24-2024 Basophils (Bld) [#/Vol] 0.0 10*3/uL 0.0 - 0.2 10*3/uL [facility] Basophils/100 WBC (Bld) 0.4 % 0.0 - 2.0 % [facility] Eosinophils (Bld) [#/Vol] 0.2 10*3/uL 0.0 - 0.5 10*3/uL [facility] Eosinophils/100 WBC (Bld) 3.1 % 0.0 - 6.0 % [facility] Erythrocyte distribution width (RBC) [Ratio] 13.8 % 11.5 - 15.0 % [facility] Hematocrit (Bld) [Volume fraction] 40.4 % 40.0 - 52.0 % [facility] Hemoglobin (Bld) [Mass/Vol] 12.9 g/dL Low 13.0 - 18.0 g/dL [facility] Immature granulocytes (Bld) [#/Vol] 0.0 10*3/uL NINF - 0.1 10*3/uL [facility] Immature granulocytes/100 WBC (Bld) 0.4 % 0.0 - 2.0 % [facility] Interpretation and review of laboratory results Abnormal [facility] Lymphocytes (Bld) [#/Vol] 2.1 10*3/uL 1.0 - 4.3 10*3/uL [facility] Lymphocytes/100 WBC (Bld) 28.5 % 15.0 - 45.0 % [facility] MCH (RBC) [Entitic mass] 30.9 pg 26.0 - 34.0 pg [facility] MCHC (RBC) [Mass/Vol] 31.9 % 30.5 - 36.0 % [facility] MCV (RBC) [Entitic vol] 96.9 fL 77.0 - 99.0 fL [facility] Monocytes (Bld) [#/Vol] 0.8 10*3/uL 0.0 - 0.9 10*3/uL [facility] Monocytes/100 WBC (Bld) 10.8 % 5.0 - 13.0 % [facility] Neutrophils (Bld) [#/Vol] 4.3 10*3/uL 1.8 - 7.5 10*3/uL [facility] Neutrophils/100 WBC (Bld) 56.8 % 38.0 - 82.0 % [facility] Nucleated RBC/100 WBC (Bld) [Ratio] 0.0 % [facility] Platelet mean volume (Bld) [Entitic vol] 9.7 fL 9.0 - 12.7 fL [facility] Platelets (Bld) [#/Vol] 252 10*3/uL 140 - 440 10*3/uL [facility] RBC (Bld) [#/Vol] 4.17 10*6/uL Low 4.40 - 5.9 0 10*6/uL [facility] WBC (Bld) [#/Vol] 7.5 10*3/uL 3.6 - 10.7 10*3/uL [facility] Comprehensive metabolic 1998 panelon 06-24-2024 Albumin [Mass/Vol] 3.1 g/dL Low 3.5 - 5.0 g/dL [facility] ALP [Catalytic activity/Vol] 59 U/L 38 - 126 U/L [facility] ALT [Catalytic activity/Vol] 63 U/L High 0 - 49 U/L [facility] Anion gap [Moles/Vol] 3 mmol/L 3 - 13 mmol/L [facility] AST [Catalytic activity/Vol] 56 U/L High 15 - 46 U/L [facility] Bilirubin [Mass/Vol] 0.5 mg/dL 0.2 - 1.3 mg/dL [facility] Calcium [Mass/Vol] 8.5 mg/dL 8.4 - 10. 4 mg/dL [facility] Chloride [Moles/Vol] 102 mmol/L 98 - 107 mmol/L [facility] CO2 [Moles/Vol] 28 mmol/L 22 - 30 mmol/L [facility] Creatinine [Mass/Vol] 0.40 mg/dL Low 0.66 - 1.25 mg/dL [facility] GFR/1.73 sq M.predicted (S/P/Bld) [Vol rate/Area] - PINF [facility] Comment on above: Calculation based on the Chronic Kidney Disease Epidemiology Collaboration (CKD-EPI) equation refit without adjustment for race Glucose [Mass/Vol] 102 mg/dL High 70 - 100 mg/dL [facility] Interpretation and review of laboratory results Abnormal [facility] Potassium [Moles/Vol] 4.2 mmol/L 3.5 - 5.1 mmol/L [facility] Protein [Mass/Vol] 6.3 g/dL 6.3 - 8.2 g/dL [facility] Sodium [Moles/Vol] 134 mmol/L Low 135 - 145 mmol/L [facility] Urea nitrogen [Mass/Vol] 18 mg/dL 9 - 20 mg/dL [facility] CBC W Auto Differential pane l (Bld)on 06-23-2024 Basophils (Bld) [#/Vol] 0.0 10*3/uL 0.0 - 0.2 10*3/uL [facility] Basophils/100 WBC (Bld) 0.6 % 0.0 - 2.0 % [facility] Eosinophils (Bld) [#/Vol] 0.2 10*3/uL 0.0 - 0.5 10*3/uL [facility] Eosinophils/100 WBC (Bld) 3.2 % 0.0 - 6.0 % [facility] Erythrocyte distribution width (RBC) [Ratio] 13.8 % 11.5 - 15.0 % [facility] Hematocrit (Bld) [Volume fraction] 40.1 % 40.0 - 52.0 % [facility] Hemoglobin (Bld) [Mass/Vol] 13.1 g/dL 13.0 - 18.0 g/dL [facility] Immature granulocytes (Bld) [#/Vol] 0.0 10*3/uL NINF - 0.1 10*3/uL [facility] Immature granulocytes/100 WBC (Bld) 0.3 % 0.0 - 2.0 % [facility] Interpretation and review of laboratory results Abnormal [facility] Lymphocytes (Bld) [#/Vol] 2.2 10*3/uL 1.0 - 4.3 10*3/uL [facility] Lymphocytes/100 WBC (Bld) 30.4 % 15.0 - 45.0 % [facility] MCH (RBC) [Entitic mass] 32.0 pg 26.0 - 34.0 pg [facility] MCHC (RBC) [Mass/Vol] 32.7 % 30.5 - 36.0 % [facility] MCV (RBC) [Entitic vol] 98.0 fL 77.0 - 99.0 fL [facility] Monocytes (Bld) [#/Vol] 0.8 10*3/uL 0.0 - 0.9 10*3/uL [facility] Monocytes/100 WBC (Bld) 11.6 % 5.0 - 13.0 % [facility] Neutrophils (Bld) [#/Vol] 3.8 10*3/uL 1.8 - 7.5 10*3/uL [facility] Neutrophils/100 WBC (Bld) 53.9 % 38.0 - 82.0 % [facility] Nucleated RBC/100 WBC (Bld) [Ratio] 0.0 % [facility] Platelet mean volume (Bld) [Entitic vol] 9.6 fL 9.0 - 12.7 fL [facility] Platelets (Bld) [#/Vol] 251 10*3/uL 140 - 440 10*3/uL [facility] RBC (Bld) [#/Vol] 4.09 10*6/uL Low 4.40 - 5.9 0 10*6/uL [facility] WBC (Bld) [#/Vol] 7.1 10*3/uL 3.6 - 10.7 10*3/uL [facility] Comprehensive metabolic 1998 panelon 06-23-2024 Albumin [Mass/Vol] 3.2 g/dL Low 3.5 - 5.0 g/dL [facility] ALP [Catalytic activity/Vol] 56 U/L 38 - 126 U/L [facility] ALT [Catalytic activity/Vol] 66 U/L High 0 - 49 U/L [facility] Anion gap [Moles/Vol] 5 mmol/L 3 - 13 mmol/L [facility] AST [Catalytic activity/Vol] 57 U/L High 15 - 46 U/L [facility] Bilirubin [Mass/Vol] 0.5 mg/dL 0.2 - 1.3 mg/dL [facility] Calcium [Mass/Vol] 8.5 mg/dL 8.4 - 10. 4 mg/dL [facility] Chloride [Moles/Vol] 101 mmol/L 98 - 107 mmol/L [facility] CO2 [Moles/Vol] 30 mmol/L 22 - 30 mmol/L [facility] Creatinine [Mass/Vol] 0.41 mg/dL Low 0.66 - 1.25 mg/dL [facility] GFR/1.73 sq M.predicted (S/P/Bld) [Vol rate/Area] - PINF [facility] Comment on above: Calculation based on the Chronic Kidney Disease Epidemiology Collaboration (CKD-EPI) equation refit without adjustment for race Glucose [Mass/Vol] 103 mg/dL High 70 - 100 mg/dL [facility] Interpretation and review of laboratory results Abnormal [facility] Potassium [Moles/Vol] 4.2 mmol/L 3.5 - 5.1 mmol/L [facility] Protein [Mass/Vol] 6.4 g/dL 6.3 - 8.2 g/dL [facility] Sodium [Moles/Vol] 136 mmol/L 135 - 145 mmol/L [facility] Urea nitrogen [Mass/Vol] 17 mg/dL 9 - 20 mg/dL [facility] CBC W Auto Differential pane l (Bld)on 06-22-2024 Basophils (Bld) [#/Vol] 0.1 10*3/uL 0.0 - 0.2 10*3/uL [facility] Basophils/100 WBC (Bld) 0.6 % 0.0 - 2.0 % [facility] Eosinophils (Bld) [#/Vol] 0.2 10*3/uL 0.0 - 0.5 10*3/uL [facility] Eosinophils/100 WBC (Bld) 2.5 % 0.0 - 6.0 % [facility] Erythrocyte distribution width (RBC) [Ratio] 13.8 % 11.5 - 15.0 % [facility] Hematocrit (Bld) [Volume fraction] 36.7 % Low 40.0 - 52.0 % [facility] Hemoglobin (Bld) [Mass/Vol] 11.9 g/dL Low 13.0 - 18.0 g/dL [facility] Immature granulocytes (Bld) [#/Vol] 0.0 10*3/uL NINF - 0.1 10*3/uL [facility] Immature granulocytes/100 WBC (Bld) 0.4 % 0.0 - 2.0 % [facility] Interpretation and review of laboratory results Abnormal [facility] Lymphocytes (Bld) [#/Vol] 2.1 10*3/uL 1.0 - 4.3 10*3/uL [facility] Lymphocytes/100 WBC (Bld) 27.0 % 15.0 - 45.0 % [facility] MCH (RBC) [Entitic mass] 31.9 pg 26.0 - 34.0 pg [facility] MCHC (RBC) [Mass/Vol] 32.4 % 30.5 - 36.0 % [facility] MCV (RBC) [Entitic vol] 98.4 fL 77.0 - 99.0 fL [facility] Monocytes (Bld) [#/Vol] 1.0 10*3/uL High 0.0 - 0.9 10*3/uL [facility] Monocytes/100 WBC (Bld) 12.1 % 5.0 - 13.0 % [facility] Neutrophils (Bld) [#/Vol] 4.5 10*3/uL 1.8 - 7.5 10*3/uL [facility] Neutrophils/100 WBC (Bld) 57.4 % 38.0 - 82.0 % [facility] Nucleated RBC/100 WBC (Bld) [Ratio] 0.0 % [facility] Platelet mean volume (Bld) [Entitic vol] 9.5 fL 9.0 - 12.7 fL [facility] Platelets (Bld) [#/Vol] 248 10*3/uL 140 - 440 10*3/uL [facility] RBC (Bld) [#/Vol] 3.73 10*6/uL Low 4.40 - 5.9 0 10*6/uL [facility] WBC (Bld) [#/Vol] 7.9 10*3/uL 3.6 - 10.7 10*3/uL [facility] Comprehensive metabolic 1998 panelon 06-22-2024 Albumin [Mass/Vol] 2.9 g/dL Low 3.5 - 5.0 g/dL [facility] ALP [Catalytic activity/Vol] 66 U/L 38 - 126 U/L [facility] ALT [Catalytic activity/Vol] 67 U/L High 0 - 49 U/L [facility] Anion gap [Moles/Vol] 5 mmol/L 3 - 13 mmol/L [facility] AST [Catalytic activity/Vol] 63 U/L High 15 - 46 U/L [facility] Bilirubin [Mass/Vol] 0.3 mg/dL 0.2 - 1.3 mg/dL [facility] Calcium [Mass/Vol] 8.2 mg/dL Low 8.4 - 10. 4 mg/dL [facility] Chloride [Moles/Vol] 104 mmol/L 98 - 107 mmol/L [facility] CO2 [Moles/Vol] 27 mmol/L 22 - 30 mmol/L [facility] Creatinine [Mass/Vol] 0.43 mg/dL Low 0.66 - 1.25 mg/dL [facility] GFR/1.73 sq M.predicted (S/P/Bld) [Vol rate/Area] - PINF [facility] Comment on above: Calculation based on the Chronic Kidney Disease Epidemiology Collaboration (CKD-EPI) equation refit without adjustment for race Glucose [Mass/Vol] 105 mg/dL High 70 - 100 mg/dL [facility] Interpretation and review of laboratory results Abnormal [facility] Potassium [Moles/Vol] 4.0 mmol/L 3.5 - 5.1 mmol/L [facility] [employer] Protein [Mass/Vol] 5.9 g/dL Low 6.3 - 8.2 g/dL [facility] Sodium [Moles/Vol] 135 mmol/L 135 - 145 mmol/L [facility] Urea nitrogen [Mass/Vol] 16 mg/dL 9 - 20 mg/dL [facility] CBC W Auto Differential pane l (Bld)on 06-21-2024 Basophils (Bld) [#/Vol] 0.1 10*3/uL 0.0 - 0.2 10*3/uL [facility] Basophils/100 WBC (Bld) 0.8 % 0.0 - 2.0 % [facility] Eosinophils (Bld) [#/Vol] 0.1 10*3/uL 0.0 - 0.5 10*3/uL [facility] [employer] Eosinophils/100 WBC (Bld) 2.1 % 0.0 - 6.0 % [facility] Erythrocyte distribution width (RBC) [Ratio] 13.7 % 11.5 - 15.0 % [facility] Hematocrit (Bld) [Volume fraction] 35.9 % Low 40.0 - 52.0 % [facility] Hemoglobin (Bld) [Mass/Vol] 11.4 g/dL Low 13.0 - 18.0 g/dL [facility] Immature granulocytes (Bld) [#/Vol] 0.0 10*3/uL NINF - 0.1 10*3/uL [facility] [employer] Immature granulocytes/100 WBC (Bld) 0.2 % 0.0 - 2.0 % [facility] Interpretation and review of laboratory results Abnormal [facility] Lymphocytes (Bld) [#/Vol] 1.9 10*3/uL 1.0 - 4.3 10*3/uL [facility] [employer] Lymphocytes/100 WBC (Bld) 29.0 % 15.0 - 45.0 % [facility] MCH (RBC) [Entitic mass] 31.6 pg 26.0 - 34.0 pg [facility] MCHC (RBC) [Mass/Vol] 31.8 % 30.5 - 36.0 % [facility] MCV (RBC) [Entitic vol] 99.4 fL High 77.0 - 99.0 fL [facility] Monocytes (Bld) [#/Vol] 0.8 10*3/uL 0.0 - 0.9 10*3/uL [facility] Monocytes/100 WBC (Bld) 11.4 % 5.0 - 13.0 % [facility] Neutrophils (Bld) [#/Vol] 3.7 10*3/uL 1.8 - 7.5 10*3/uL [facility] Neutrophils/100 WBC (Bld) 56.5 % 38.0 - 82.0 % [facility] Nucleated RBC/100 WBC (Bld) [Ratio] 0.0 % [facility] Platelet mean volume (Bld) [Entitic vol] 9.4 fL 9.0 - 12.7 fL [facility] Platelets (Bld) [#/Vol] 260 10*3/uL 140 - 440 10*3/uL [facility] RBC (Bld) [#/Vol] 3.61 10*6/uL Low 4.40 - 5.9 0 10*6/uL [facility] WBC (Bld) [#/Vol] 6.6 10*3/uL 3.6 - 10.7 10*3/uL [facility] Comprehensive metabolic 1998 panelon 06-21-2024 Albumin [Mass/Vol] 2.7 g/dL Low 3.5 - 5.0 g/dL [facility] ALP [Catalytic activity/Vol] 60 U/L 38 - 126 U/L [facility] ALT [Catalytic activity/Vol] 72 U/L High 0 - 49 U/L [facility] Anion gap [Moles/Vol] 5 mmol/L 3 - 13 mmol/L [facility] AST [Catalytic activity/Vol] 62 U/L High 15 - 46 U/L [facility] Bilirubin [Mass/Vol] 0.3 mg/dL 0.2 - 1.3 mg/dL [facility] Calcium [Mass/Vol] 7.8 mg/dL Low 8.4 - 10. 4 mg/dL [facility] Chloride [Moles/Vol] 105 mmol/L 98 - 107 mmol/L [facility] CO2 [Moles/Vol] 25 mmol/L 22 - 30 mmol/L [facility] Creatinine [Mass/Vol] 0.44 mg/dL Low 0.66 - 1.25 mg/dL [facility] GFR/1.73 sq M.predicted (S/P/Bld) [Vol rate/Area] - PINF [facility] Comment on above: Calculation based on the Chronic Kidney Disease Epidemiology Collaboration (CKD-EPI) equation refit without adjustment for race Glucose [Mass/Vol] 112 mg/dL High 70 - 100 mg/dL [facility] Interpretation and review of laboratory results Abnormal [facility] Potassium [Moles/Vol] 4.1 mmol/L 3.5 - 5.1 mmol/L [facility] Protein [Mass/Vol] 5.6 g/dL Low 6.3 - 8.2 g/dL [facility] Sodium [Moles/Vol] 135 mmol/L 135 - 145 mmol/L [facility] Urea nitrogen [Mass/Vol] 16 mg/dL 9 - 20 mg/dL [facility] Basic metabolic 1998 panelon 06-20-2024 Anion gap [Moles/Vol] 6 mmol/L 3 - 13 mmol/L [facility] Calcium [Mass/Vol] 8.3 mg/dL Low 8.4 - 10. 4 mg/dL [facility] Chloride [Moles/Vol] 103 mmol/L 98 - 107 mmol/L [facility] CO2 [Moles/Vol] 29 mmol/L 22 - 30 mmol/L [facility] Creatinine [Mass/Vol] 0.41 mg/dL Low 0.66 - 1.25 mg/dL [facility] GFR/1.73 sq M.predicted (S/P/Bld) [Vol rate/Area] - PINF [facility] Comment on above: Calculation based on the Chronic Kidney Disease Epidemiology Collaboration (CKD-EPI) equation refit without adjustment for race Glucose [Mass/Vol] 95 mg/dL 70 - 100 mg/dL [facility] Interpretation and review of laboratory results Abnormal [facility] Potassium [Moles/Vol] 4.2 mmol/L 3.5 - 5.1 mmol/L [facility] Sodium [Moles/Vol] 138 mmol/L 135 - 145 mmol/L [facility] Urea nitrogen [Mass/Vol] 12 mg/dL 9 - 20 mg/dL [facility] CBC W Auto Differential pane l (Bld)on 06-20-2024 Basophils (Bld) [#/Vol] 0.0 10*3/uL 0.0 - 0.2 10*3/uL [facility] Basophils/100 WBC (Bld) 0.6 % 0.0 - 2.0 % [facility] Eosinophils (Bld) [#/Vol] 0.1 10*3/uL 0.0 - 0.5 10*3/uL [facility] Eosinophils/100 WBC (Bld) 1.4 % 0.0 - 6.0 % [facility] Erythrocyte distribution width (RBC) [Ratio] 13.5 % 11.5 - 15.0 % [facility] Hematocrit (Bld) [Volume fraction] 39.4 % Low 40.0 - 52.0 % [facility] Hemoglobin (Bld) [Mass/Vol] 12.8 g/dL Low 13.0 - 18.0 g/dL [facility] Immature granulocytes (Bld) [#/Vol] 0.0 10*3/uL NINF - 0.1 10*3/uL [facility] Immature granulocytes/100 WBC (Bld) 0.3 % 0.0 - 2.0 % [facility] Interpretation and review of laboratory results Abnormal [facility] Lymphocytes (Bld) [#/Vol] 1.7 10*3/uL 1.0 - 4.3 10*3/uL [facility] Lymphocytes/100 WBC (Bld) 23.5 % 15.0 - 45.0 % [facility] MCH (RBC) [Entitic mass] 31.6 pg 26.0 - 34.0 pg [facility] MCHC (RBC) [Mass/Vol] 32.5 % 30.5 - 36.0 % [facility] MCV (RBC) [Entitic vol] 97.3 fL 77.0 - 99.0 fL [facility] Monocytes (Bld) [#/Vol] 0.7 10*3/uL 0.0 - 0.9 10*3/uL [facility] Monocytes/100 WBC (Bld) 10.6 % 5.0 - 13.0 % [facility] Neutrophils (Bld) [#/Vol] 4.5 10*3/uL 1.8 - 7.5 10*3/uL [employer] Neutrophils/100 WBC (Bld) 63.6 % 38.0 - 82.0 % [employer] Nucleated RBC/100 WBC (Bld) [Ratio] 0.0 % [employer] Platelet mean volume (Bld) [Entitic vol] 9.3 fL 9.0 - 12.7 fL [employer] Platelets (Bld) [#/Vol] 298 10*3/uL 140 - 440 10*3/uL [facility] [employer] RBC (Bld) [#/Vol] 4.05 10*6/uL Low 4.40 - 5.9 0 10*6/uL [employer] WBC (Bld) [#/Vol] 7.0 10*3/uL 3.6 - 10.7 10*3/uL [facility] [employer] [facility] [employer] Laboratory - Chemistry and C hemistry - challengeon 06-20-2024 Troponin I.cardiac [Mass/Vol] ng/mL NINF - 0.034 ng/mL [employer] No Panel InformationOrdered By: Alejandro Ayala on 06-20-2024 P [place] 6 degrees [employer] Work Phone: LA Interval 209 ms [employer] Work Phone: QRS [place] -48 degrees [employer] Work Phone: QRSD Interval 137 ms [employer] Work Phone: QT Interval 507 ms [employer] Work Phone: QTC Interval 467 ms [employer] Work Phone: T Wave [place] -23 degrees [employer] Work Phone: [employer] Work Phone: No Panel Informationon 06-20 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 [facility] Vital signsOrdered By: Panda nora Ayala on 06-20-2024 Heart rate 51 /min bpm [facility] Work Phone: XR Chest Single viewon 06-20 Linear atelectasis in the mid lungs bilaterally. Report Dictated on Electronically Signed By: Alejandro Malagon MD Electronically Signed Date/Time: 06/20/2024 10:34 AM EDT [facility] 1940 [id number] Exam Date/Time: 06/20/2024 10:24 Procedure: XR CHEST 1 VIEW Ordering Provider: CASANOVA HAYLEY Reason For Exam: recent bronchitis, gen weakness AP CHEST X-RAY CLINICAL INDICATION: recent bronchitis, gen weakness TECHNIQUE: AP portable x-ray of the chest. COMPARISON: Chest x-ray dated December 13, 2013 FINDINGS: Lines/Tubes: None Heart/Mediastinum: Within normal limits Lungs: Linear atelectasis is noted in the mid lungs bilaterally. Bones: Degenerative changes are seen in the thoracic spine and shoulders. No acute osseous findings. [facility] Alejandro Malagon MD - 06/20/2024 Patient Name: IZABELA LONDON : 1940 Exam Date/Time: 06/20/2024 10:24 Procedure: XR CHEST 1 VIEW Ordering Provider: CASANOVA HAYLEY Reason For Exam: recent bronchitis, gen weakness AP CHEST X-RAY CLINICAL INDICATION: recent bronchitis, gen weakness TECHNIQUE: AP portable x-ray of the chest. COMPARISON: Chest x-ray dated December 13, 2013 FINDINGS: Lines/Tubes: None Heart/Mediastinum: Within normal limits Lungs: Linear atelectasis is noted in the mid lungs bilaterally. Bones: Degenerative changes are seen in the thoracic spine and shoulders. No acute osseous findings. IMPRESSION: Linear atelectasis in the mid lungs bilaterally. Report Dictated on Electronically Signed By: Alejandro Malagon MD Electronically Signed Date/Time: 06/20/2024 10:34 AM EDT [facility] Radiology Study observation (narrative) [facility] [employer] XR Chest Single viewOrdered By: Alejandro Malagon on 06-20-2024 [facility] [employer] Work Phone: POCT Influenza A/Bon 024 Interpretation and review of laboratory results Normal [facility] Rapid Influenza A Ag Negative Negativ e, Indeterminate [facility] Rapid Influenza B Ag Negative Negativ e, Indeterminate [facility] CBC W Auto Differential pane l (Bld)on 02-29-2024 Basophils (Bld) [#/Vol] 39 10*3/uL [facility] [employer] Basophils/100 WBC (Bld) 0.7 % [facility] [employer] Eosinophils (Bld) [#/Vol] 132 10*3/uL [facility] Eosinophils/100 WBC (Bld) 2.4 % [facility] Erythrocyte distribution width (RBC) [Ratio] 13.2 % 11.0 - 15.0 % [facility] Hematocrit (Bld) [Volume fraction] 43.9 % 38.5 - 50.0 % [facility] Hemoglobin (Bld) [Mass/Vol] 14.9 g/dL 13.2 - 17.1 g/dL [facility] [employer] Lymphocytes (Bld) [#/Vol] 1293 10*3/uL [facility] [employer] Lymphocytes/100 WBC (Bld) 23.5 % [facility] MCH (RBC) [Entitic mass] 32.3 pg 27.0 - 33.0 pg [facility] MCHC (RBC) [Mass/Vol] 33.9 g/dL 32.0 - 36.0 g/dL [facility] MCV (RBC) [Entitic vol] 95.0 fL 80.0 - 100.0 fL [facility] Monocytes (Bld) [#/Vol] 682 10*3/uL [facility] Monocytes/100 WBC (Bld) 12.4 % [facility] [employer] Neutrophils (Bld) [#/Vol] 3355 10*3/uL [facility] Neutrophils/100 WBC (Bld) 61 % [facility] Platelet mean volume (Bld) [Entitic vol] 10.2 fL 7.5 - 12.5 fL [facility] Platelets (Bld) [#/Vol] 250 10*3/uL [facility] RBC (Bld) [#/Vol] 4.62 10*6/uL [facility] WBC (Bld) [#/Vol] 5.5 10*3/uL [facility] Comprehensive metabolic 1998 panelon 02-29-2024 Albumin [Mass/Vol] 4.0 g/dL 3.6 - 5.1 g/dL [facility] Albumin/Globulin [Mass ratio] 1.6 {ratio} [facility] ALP [Catalytic activity/Vol] 45 U/L 35 - 144 U/L [facility] ALT [Catalytic activity/Vol] 39 U/L 9 - 46 U/L [facility] AST [Catalytic activity/Vol] 43 U/L High 10 - 35 U/L [facility] Bilirubin [Mass/Vol] 0.8 mg/dL 0.2 - 1.2 mg/dL [facility] Calcium [Mass/Vol] 9.1 mg/dL 8.6 - 10. 3 mg/dL [facility] Chloride [Moles/Vol] 102 mmol/L 98 - 110 mmol/L [facility] CO2 [Moles/Vol] 28 mmol/L 20 - 32 mmol/L [facility] Creatinine [Mass/Vol] 0.51 mg/dL Low 0.70 - 1.22 mg/dL [facility] GFR/1.73 sq M.predicted among non-blacks MDRD (S/P/Bld) [Vol rate/Area] 100 mL/min/{1.73_m2} > OR = 60 mL/min/1.73m2 [facility] Globulin (S) [Mass/Vol] 2.5 g/dL [facility] Glucose [Mass/Vol] 107 mg/dL High 65 - 99 mg/dL [facility] Comment on above: Fasting reference interval For someone without known diabetes, a glucose value between 100 and 125 mg/dL is consistent with prediabetes and should be confirmed with a follow-up test. Interpretation and review of laboratory results Abnormal [facility] Potassium [Moles/Vol] 4.5 mmol/L 3.5 - 5.3 mmol/L [facility] Protein [Mass/Vol] 6.5 g/dL 6.1 - 8.1 g/dL [facility] Sodium [Moles/Vol] 138 mmol/L 135 - 146 mmol/L [facility] Urea nitrogen [Mass/Vol] 13 mg/dL 7 - 25 mg/dL [facility] Urea nitrogen/Creatinine [Mass ratio] 25 mg/mg High [facility] No Panel Informationon 02-28 [facility] PSA Total (Screening)on Prostate specific Ag [Mass/Vol] 1.02 ng/mL < OR = 4.00 [facility] Comment on above: The total PSA value from this assay system is standardized against the WHO standard. The test result will be approximately 20% lower when compared to the equimolar-standardized total PSA (Shirin Rhinelander). Comparison of serial PSA results should be interpreted with this fact in mind. This test was performed using the Siemens chemiluminescent method. Values obtained from different assay methods cannot be used interchangeably. PSA levels, regardless of value, should not be interpreted as absolute evidence of the presence or absence of disease. Delisa 06-30-2023 [facility] Telephone (AGCARDPOB ) IZABELA LONDON ([id number]) [address] [facility] Date Time Provider Department 06/30/23 JUANJO FERRELL During your visit today, we recorded the following information about you: Onel Shepherd LPN 06/30/2023 8:52 AM Signed Last seen [phone]. Clerical to call to schedule overdue Follow up. UZMA Hua Mary 07/07/2023 3:23 PM Signed Scheduled Allergies As of Date: 06/30/2023 (No Known Allergies) Date Reviewed: 12/09/2021 Reviewed by: Juanjo Ferrell MD - Fully Assessed Reason for Visit: Appointment [186] Prescriptions as of 07/07/2023 - lisinopril (ZESTRIL) 10 mg tablet Take 1 tablet by mouth once daily. - aspirin, enteric coated (ASPIRIN, ENTERIC COATED) 81 mg EC tablet Take 81 mg by mouth once daily. - enzalutamide 40 mg Take 160 mg by mouth once daily. - OS-PREETI 500+D 500 mg(1,250mg) -200 unit per tablet Take 1 tablet by mouth once daily. - aspirin-calcium carbonate 81 mg-300 mg calcium(777 mg) tab Take 81 mg by mouth once daily. - carvedilol (COREG) 3.125 mg tablet Take 1 tablet by mouth twice daily with meals. - simvastatin (ZOCOR) 20 mg tablet TAKE 1 TABLET BY MOUTH DAILY AT BEDTIME. - tamsulosin ER (FLOMAX) 0.4 mg cp24 Take 0.4 mg by mouth twice daily. - Cholecalciferol, Vitamin D3, 5,000 unit cap Take 5,000 Units by mouth once daily. 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] 05/10/2018 Pre-operative cardiovascular examination [Z01.8*05/18/2019 Encounter Status:Closed by ONEL SHEPHERD on 07/01/23 [facility] CBC W Auto Differential pane l (Bld)on 03-25-2023 Basophils (Bld) [#/Vol] 0.1 10*3/uL 0.0 - 0.2 10*3/uL [facility] Basophils/100 WBC (Bld) 0.7 % 0.0 - 2.0 % [facility] Eosinophils (Bld) [#/Vol] 0.2 10*3/uL 0.0 - 0.5 10*3/uL [facility] Eosinophils/100 WBC (Bld) 2.2 % 1.0 - 6.0 % [facility] Erythrocyte distribution width (RBC) [Ratio] 13.7 % 11.5 - 14.5 % [facility] Hematocrit (Bld) [Volume fraction] 43.3 % 40.0 - 52.0 % [facility] Hemoglobin (Bld) [Mass/Vol] 14.5 g/dL 13.0 - 18.0 g/dL [facility] Interpretation and review of laboratory results Normal [facility] Lymphocytes (Bld) [#/Vol] 1.8 10*3/uL 1.0 - 4.3 10*3/uL [facility] Lymphocytes/100 WBC (Bld) 23.3 % 20.0 - 40.0 % [facility] MCH (RBC) [Entitic mass] 32.5 pg 26.0 - 34.0 pg [facility] MCHC (RBC) [Mass/Vol] 33.5 % 32.0 - 36.0 % [facility] MCV (RBC) [Entitic vol] 97.0 fL 80.0 - 98.0 fL [facility] Monocytes (Bld) [#/Vol] 0.6 10*3/uL 0.0 - 0.8 10*3/uL [facility] Monocytes/100 WBC (Bld) 8.0 % 2.0 - 10.0 % [facility] Neutrophils (Bld) [#/Vol] 5.2 10*3/uL 1.8 - 7.0 10*3/uL [facility] Neutrophils/100 WBC (Bld) 65.8 % 40.0 - 80.0 % [facility] Nucleated RBC/100 WBC (Bld) [Ratio] 0.0 % [facility] Platelet mean volume (Bld) [Entitic vol] 8.1 fL 7.4 - 12.4 fL [facility] Platelets (Bld) [#/Vol] 272 10*3/uL 140 - 440 10*3/uL [facility] RBC (Bld) [#/Vol] 4.46 10*6/uL 4.40 - 5.9 0 10*6/uL [facility] WBC (Bld) [#/Vol] 7.9 10*3/uL 3.6 - 10.7 10*3/uL [facility] Comprehensive metabolic 1998 panelon 03-25-2023 Albumin [Mass/Vol] 3.9 g/dL 3.5 - 5.0 g/dL [facility] ALP [Catalytic activity/Vol] 80 U/L 38 - 126 U/L [facility] ALT [Catalytic activity/Vol] 80 U/L High 0 - 49 U/L [facility] Anion gap [Moles/Vol] 3 mmol/L 3 - 13 mmol/L [facility] AST [Catalytic activity/Vol] 73 U/L High 15 - 46 U/L [facility] Bilirubin [Mass/Vol] 0.5 mg/dL 0.2 - 1.3 mg/dL [facility] Calcium [Mass/Vol] 9.1 mg/dL 8.4 - 10. 4 mg/dL [facility] Chloride [Moles/Vol] 105 mmol/L 98 - 107 mmol/L [facility] CO2 [Moles/Vol] 30 mmol/L 22 - 30 mmol/L [facility] Creatinine [Mass/Vol] 0.50 mg/dL Low 0.66 - 1.25 mg/dL [facility] GFR/1.73 sq M.predicted MDRD (S/P/Bld) [Vol rate/Area] - PINF [facility] Comment on above: Calculation based on the Chronic Kidney Disease Epidemiology Collaboration (CKD-EPI) equation refit without adjustment for race Glucose [Mass/Vol] 102 mg/dL High 70 - 100 mg/dL [facility] Interpretation and review of laboratory results Abnormal [facility] Potassium [Moles/Vol] 4.2 mmol/L 3.5 - 5.1 mmol/L [facility] Protein [Mass/Vol] 6.6 g/dL 6.3 - 8.2 g/dL [facility] Sodium [Moles/Vol] 139 mmol/L 135 - 145 mmol/L [facility] Urea nitrogen [Mass/Vol] 22 mg/dL High 9 - 20 mg/dL [facility] Laboratory - Chemistry and C hemistry - challengeon 03-25-2023 Prostate specific Ag [Mass/Vol] 0.443 ng/mL NINF - 4.000 ng/mL [facility] No Panel Informationon 03-25 Interpretation and review of laboratory results Normal [facility] Testing performed on the Known 5600 using an immunometric methodology. Results obtained by different methods should not be used interchangeably. [facility] Comprehensive metabolic 1998 panelOrdered By: Conrad Potter on 09-24-2022 Albumin [Mass/Vol] 3.9 g/dL 3.5 - 5.0 g/dL [facility] ALP [Catalytic activity/Vol] 57 U/L 38 - 126 U/L [facility] ALT [Catalytic activity/Vol] 77 U/L High 0 - 49 U/L [facility] Anion gap [Moles/Vol] 6 mmol/L 3 - 13 mmol/L [facility] AST [Catalytic activity/Vol] 109 U/L High 15 - 46 U/L [facility] Bilirubin [Mass/Vol] 0.6 mg/dL 0.2 - 1.3 mg/dL [facility] Calcium [Mass/Vol] 9.1 mg/dL 8.4 - 10. 4 mg/dL [facility] Chloride [Moles/Vol] 106 mmol/L 98 - 107 mmol/L [facility] CO2 [Moles/Vol] 24 mmol/L 22 - 30 mmol/L [facility] Creatinine [Mass/Vol] 0.50 mg/dL Low 0.66 - 1.25 mg/dL [facility] GFR/1.73 sq M.predicted MDRD (S/P/Bld) [Vol rate/Area] - PINF [facility] Comment on above: Calculation based on the Chronic Kidney Disease Epidemiology Collaboration (CKD-EPI) equation refit without adjustment for race Glucose [Mass/Vol] 103 mg/dL High 70 - 100 mg/dL [facility] Interpretation and review of laboratory results Abnormal [facility] Potassium [Moles/Vol] 4.4 mmol/L 3.5 - 5.1 mmol/L [facility] Protein [Mass/Vol] 7.0 g/dL 6.3 - 8.2 g/dL [facility] Sodium [Moles/Vol] 135 mmol/L 135 - 145 mmol/L [facility] Urea nitrogen [Mass/Vol] 15 mg/dL 9 - 20 mg/dL [facility] CR Abdomen APon 12-08-2021 CR Abdomen AP Patient Name: IZABELA LONDON Diagnostic Radiology ACCESSION EXAM DATE/TIME PROCEDURE ORDERING PROVIDER [id number] 12/08/2021 13:45 EST CR Abdomen AP [id number] -ABIGAIL VINCENT CPT code 93778 Reason For Exam (CR Abdomen AP) right distal ureteral calculus Report SUPINE ABDOMEN (KUB) CLINICAL INDICATION: right distal ureteral calculus A supine plain film of the abdomen was obtained. COMPARISON: 12/23/2020 and 12/02/2021 FINDINGS: The bowel demonstrates a normal gas pattern. The previously noted small calculus at the right ureterovesicular junction is not seen. No small nonobstructing renal calculi bilaterally are not well visualized but likely unchanged. There is L4-5 spinal fusion hardware with laminectomy defects. IMPRESSION: Right UVJ calculus is no longer visualized. Report Dictated on Final Dictating Physician: MD IBRAHIM THOMAS Signed Date and Time: 12/09/2021 3:54 pm Signed by: MD IBRAHIM THOMAS Transcribed Date and Time: 12/09/2021 3:55 Normal [facility] CULTURE URINEon 12-03-2021 CULTURE URINE CULTURE URINE --> Status: F Normal urogenital manjeet present. Normal [facility] Comment on above: Performed By: #### C /UR #### [facility] [address] [place] [address] Basic Metabolic Panelon Anion gap [Moles/Vol] 7 mmol/L Normal 3-13 [facility] Comment on above: Order Comment: SLIGH T HEMOLYSIS Performed By: #### H EMDF, BMP3, LFT3, LIPA4, MG3 #### [facility] [address] [place] [address] Calcium [Mass/Vol] 9.2 mg/dL Normal 8.4-10.4 [facility] Comment on above: Order Comment: SLIGH T HEMOLYSIS Performed By: #### H EMDF, BMP3, LFT3, LIPA4, MG3 #### [facility] [address] [place] [address] CO2 [Moles/Vol] 26 mmol/L Normal 22-30 [facility] Comment on above: Order Comment: SLIGH T HEMOLYSIS Performed By: #### H EMDF, BMP3, LFT3, LIPA4, MG3 #### [facility] [address] [place] [address] Creatinine [Mass/Vol] 0.79 mg/dL Normal 0.52-1.25 [facility] Comment on above: Order Comment: SLIGH T HEMOLYSIS Performed By: #### H EMDF, BMP3, LFT3, LIPA4, MG3 #### [facility] [address] [place] [address] GFR/1.73 sq M.predicted among blacks MDRD (S/P/Bld) [Vol rate/Area] mL/min/{1.73_m2} Normal >60 [facility] Comment on above: Order Comment: SLIGH T HEMOLYSIS Performed By: #### H EMDF, BMP3, LFT3, LIPA4, MG3 #### [facility] [employer] [facility] [address] [place] [address] GFR/1.73 sq M.predicted among non-blacks MDRD (S/P/Bld) [Vol rate/Area] 83.7 mL/min/{1.73_m2} Normal >60 [facility] Comment on above: Order Comment: SLIGH T HEMOLYSIS Result Comment: KDIG O guidelines provide the following GFR categories: Stage GFR(ml/min/1.73 m2) Terms G1 >=90 Normal or high G2 60-89 Mildly decreased* G3a 45-59 Mildly to moderately decreased G3b 30-44 Moderately to severely decreased G4 15-29 Severely decreased G5 <15 Kidney failure *Relative to young adult level. In the absence of evidence of kidney damage, neither GFR category G1 nor G2 fulfill the criteria for CKD. The CKD-EPI equation is validated in individuals 18 years of age and older. Currently the best equation for estimating glomerular filtration rate (GFR) from serum creatinine in children is the Bedside Girard equation. It is less accurate in patients with extremes of muscle mass, restriction of dietary protein, ingestion of creatine, extra-renal metabolism of creatinine, or treatment with medications that affect renal tubular creatinine secretion. Performed By: #### H EMDF, BMP3, LFT3, LIPA4, MG3 #### [facility] [employer] [facility] [address] [place] [address] Glucose [Mass/Vol] 161 mg/dL High 70-100 [facility] Comment on above: Order Comment: SLIGH T HEMOLYSIS Performed By: #### H EMDF, BMP3, LFT3, LIPA4, MG3 #### [facility] [address] [place] [address] Urea nitrogen [Mass/Vol] 19 mg/dL High 7-17 [facility] Comment on above: Order Comment: SLIGH T HEMOLYSIS Performed By: #### H EMDF, BMP3, LFT3, LIPA4, MG3 #### [facility] [address] [place] [address] Potassium [Moles/Vol] 4.1 mmol/L Normal 3.5-5.1 [facility] Comment on above: Order Comment: SLIGH T HEMOLYSIS Performed By: #### H EMDF, BMP3, LFT3, LIPA4, MG3 #### [facility] [address] [place] [address] Sodium [Moles/Vol] 140 mmol/L Normal 135-145 [facility] Comment on above: Order Comment: SLIGH T HEMOLYSIS Performed By: #### H EMDF, BMP3, LFT3, LIPA4, MG3 #### [facility] [address] [place] [address] Chloride [Moles/Vol] 107 mmol/L Normal 98-107 [facility] Comment on above: Order Comment: SLIGH T HEMOLYSIS Performed By: #### H EMDF, BMP3, LFT3, LIPA4, MG3 #### [facility] [address] [place] [address] CT Abdomen/Pelvis w/o Contra ston 12-02-2021 CT Abdomen/Pelvis w/o Contrast Patient Name: IZABELA LONDON Computed Tomography ACCESSION EXAM DATE/TIME PROCEDURE ORDERING PROVIDER [id number] 12/02/2021 05:[address] Abdomen/Pelvis (No [id number] -KIBE, FÁTIMA PO, No IV) CPT code 03090 Reason For Exam (CT Abdomen/Pelvis (No PO, No IV)) rt flank pain Report EXAM: CT Abdomen and pelvis INDICATION: Right flank pain COMPARISON: 08/15/2021 TECHNIQUE: CT of the abdomen and pelvis was performed without intravenous contrast. Coronal and sagittal reformats were obtained. FINDINGS: LOWER CHEST: within normal limits. ABDOMEN: LIVER: within normal limits. BILE DUCTS: normal caliber. GALLBLADDER: No calcified gallstones. Normal caliber wall. PANCREAS: within normal limits. SPLEEN: within normal limits. ADRENALS: Stable thickening of the left adrenal gland, which may be related to adrenal hyperplasia. KIDNEYS: Mild right hydronephrosis with perinephric fat stranding. There are bilateral renal calculi, largest measuring up to 3 mm in the interpolar region of the right kidney and the largest measuring up to 4 mm in the interpolar region left kidney. There is a stable right renal cyst measuring up to 6.7 cm. No left hydronephrosis. PELVIS: REPRODUCTIVE ORGANS: no pelvic masses. URETERS: Mild right hydroureter with periureteral fat stranding and an obstructing 5 mm calculus at the right ureterovesical junction. No left hydroureter or left ureteral calculi. BLADDER: within normal limits. BOWEL: Normal caliber. Scattered colonic diverticula. No evidence of acute diverticulitis. No enlarged mesenteric lymph nodes. PERITONEUM: no ascites or free air, no fluid collection. VESSELS: Atherosclerotic changes in the aortoiliac vessels. LYMPH NODES: No enlarged nodes. RETROPERITONEUM: within normal limits. ABDOMINAL WALL: within normal limits. BONES: Multilevel degenerative changes the imaged spine. Computed Tomography Report IMPRESSION: 1. Mild right hydroureteronephrosis with obstructing 5 mm calculus of the right ureterovesical junction. Additional bilateral renal calculi as above. 2. Scattered colonic diverticula. No evidence of acute diverticulitis. Report Dictated on Final Dictating Physician: MD CHRISTIAN KEVIN Signed Date and Time: 12/02/2021 5:29 am Signed by: MD CHRISTIAN KEVIN Transcribed Date and Time: 12/02/2021 5:30 Normal [facility] Complete Urinalysison 2021 Appearance (U) Clear Normal Clear [facility] Comment on above: Result Comment: . Performed By: #### C UA2 ####[employer] [id number] [place] [address] Bacteria LM.HPF (Urine sed) [#/Area] Negative Normal Negative [facility] Comment on above: Result Comment: . Performed By: #### C UA2 ####[facility] [id number] [place] [address] Bilirubin,Urine Negative Normal Negative [facility] Comment on above: Result Comment: . Performed By: #### C UA2 ####[place] [address] [place] [address] Color (U) Light-Yellow Normal Lt. Yellow [facility] Comment on above: Result Comment: . Performed By: #### C UA2 ####[place] [address] [place] [address] Glucose Ql (U) Normal Normal Normal (<70) [facility] [place] [facility] Comment on above: Result Comment: . Performed By: #### C UA2 ####[place] [address] [place] [address] Ketone,Urine Negative Normal Negative [facility] Comment on above: Result Comment: . Performed By: #### C UA2 ####[address] [place] [address] Leukocytes,Urine Negative Normal Negative [facility] Comment on above: Result Comment: . Performed By: #### C UA2 ####[place] [address] [place] [address] Mucous Threads Few Normal Negative [facility] Comment on above: Result Comment: . Performed By: #### C UA2 ####[address] [place] [address] Nitrites,Urine Negative Normal Negative [facility] Comment on above: Result Comment: . Performed By: #### C UA2 ####[address] [place] [address] Occult Blood,Urine 0.2 mg/dL Abnormal Negative [facility] Comment on above: Result Comment: . Performed By: #### C UA2 ####[place] [address] [place] [address] pH,Urine 5.0 Normal 5.0-8.0 [facility] Comment on above: Result Comment: . Performed By: #### C UA2 ####[place] [address] [place] [address] RBC, Urine 11 - 25 Abnormal 0-2 [facility] Comment on above: Result Comment: . Performed By: #### C UA2 ####[place] [address] [place] [address] Specific [place],Urine 1.023 Normal 1.005 - 1.030 [facility] Comment on above: Result Comment: . Performed By: #### C UA2 ####[facility] [place] [address] Squamous Epithelial 0 - 2 Normal 3-5 [facility] Comment on above: Result Comment: . Performed By: #### C UA2 ####[place] [address] [place] [address] Total Protein,Urine Negative Normal Negative [facility] Comment on above: Result Comment: . Performed By: #### C UA2 ####[place] [address] [place] [address] Urobilinogen,Urine Normal Normal Normal (0-1) [facility] Comment on above: Result Comment: . Performed By: #### C UA2 ####[place] [address] [place] [address] WBC, Urine 0 - 2 Normal 0-5 [facility] Comment on above: Result Comment: . Performed By: #### C UA2 ####[place] [address] [place] [address] ED Provider Noteon ED Provider Note Luis [facility]ENCY DEPARTMENT ENCOUNTER Pt Name: Izabela London Birthdate 1940 Date of evaluation: 12/02/2021 Provider: Fátima Willett MD CHIEF COMPLAINT Chief Complaint Patient presents with ? Abdominal Pain R sided upper abdominal/upper back pain HISTORY OF PRESENT ILLNESS (Location/Symptom, Timing/Onset, Context/Setting, Quality, Duration, Modifying Factors, Severity) Note limiting factors. I wore a 95 and surgical mask for the entirety of this encounter. HPI Izabela London is a 81 y.o. male is a 81-year-old male with a past medical history significant for prostate cancer currently on radiation and immunotherapy, hypertension, high cholesterol, drug-induced polyneuropathy, coronary artery disease, and kidney stones who presents to the emergency department for evaluation for right-sided abdominal pain radiating into the right upper back. Patient states has had symptoms all day today. He states symptoms are accompanied by nausea and vomiting. He states symptoms became worse with the pain now at a 9 out of 10 hence coming to the emergency department for evaluation. Patient denies any fevers, chills, sick contacts, chest pain, shortness of breath, hematemesis, hematochezia or urinary symptoms. Of note patient does states that 2 months ago was diagnosed with kidney stones but no obstruction at the time. Nursing Notes were reviewed. REVIEW OF SYSTEMS (2+ for level 4; 10+ for level 5) Review of Systems Constitutional: Negative for activity change, appetite change, chills, diaphoresis and fever. HENT: Negative for congestion, facial swelling, sinus pressure, sinus pain, sneezing and trouble swallowing. Eyes: Negative for pain, discharge and visual disturbance. Respiratory: Negative for cough, chest tightness and shortness of breath. Cardiovascular: Negative for chest pain and palpitations. Gastrointestinal: Positive for abdominal pain, nausea and vomiting. Negative for diarrhea. Genitourinary: Negative for decreased urine volume, dysuria, hematuria and urgency. Musculoskeletal: Positive for back pain. Negative for neck pain and neck stiffness. Skin: Negative for color change, pallor and rash. Neurological: Negative for dizziness, light-headedness and numbness. Psychiatric/Behavioral: Negative for confusion and hallucinations. The patient is not nervous/anxious. PAST MEDICAL HISTORY Past Medical History: Diagnosis Date ? 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 CAD (coronary artery disease) ? History of blood transfusion ? Hyperlipidemia ? Hypertension SURGICAL HISTORY Past Surgical History: Procedure Laterality Date ? BACK SURGERY 2014 ? BONE GRAFT 1989 broken foot- bone graft ? COLONOSCOPY ? CORONARY ANGIOPLASTY WITH STENT PLACEMENT 08/2012 ? EYE SURGERY Bilateral cataracts ? MOHS SURGERY left ear ? TONSILLECTOMY AND ADENOIDECTOMY 1944 ? TOTAL KNEE ARTHROPLASTY Left 07/05/2019 CURRENT MEDICATIONS Previous Medications ASPIRIN 81 MG TABLET Take 81 mg by mouth daily CALCIUM CARB-CHOLECALCIFEROL (OYSTER SHELL CALCIUM W/D) 500-200 MG-UNIT TABS TABLET TAKE 1 TABLET BY MOUTH EVERY DAY CALCIUM CARBONATE-VITAMIN D (OYSTER SHELL CALCIUM/D) 500-200 MG-UNIT TABS TAKE 1 TABLET BY MOUTH EVERY DAY CARVEDILOL (COREG) 3.125 MG TABLET Take 1 tablet by mouth 2 times daily (with meals) CHOLECALCIFEROL (VITAMIN D3) 5000 UNITS TABS Take by mouth ENZALUTAMIDE (XTANDI) 40 MG CAPSULE Take 4 capsules by mouth daily LISINOPRIL (PRINIVIL;ZESTRIL) 10 MG TABLET Take 1 tablet by mouth daily SIMVASTATIN (ZOCOR) 20 MG TABLET TAKE 1 TABLET EVERY DAY AT NIGHT TAMSULOSIN (FLOMAX) 0.4 MG CAPSULE Take 1 capsule by mouth 2 times daily ALLERGIES Seasonal FAMILY HISTORY Family History Problem Relation Age of Onset ? Cancer Father 77 Colon SOCIAL HISTORY Social History Socioeconomic History ? Marital status: Spouse name: None ? Number of children: None ? Years of education: None ? Highest education level: None Occupational History ? None Tobacco Use ? Smoking status: Former Smoker Types: Cigarettes Quit date: 06/24/1977 Years since quittin.4 ? Smokeless tobacco: Never Used Vaping Use ? Vaping Use: Never used Substance and Sexual Activity ? Alcohol use: Yes Comment: once monthly ? Drug use: No ? Sexual activity: None Other Topics Concern ? None Social History Narrative ? None Social Determinants of Health Financial Resource Strain: Low Risk ? Difficulty of Paying Living Expenses: Not hard at all Food Insecurity: No Food Insecurity ? Worried About Running Out of Food in the Last Year: Never true ? Ran Out of Food in the Last Year: Never true Transportation Needs: No Transportation Needs ? Lack of Transportation (Medical): No ? Lack of Transportation (Non-Medical): No Physical Activity: Insufficiently Active ? Days of Exercise per Week: 1 d (more content not included)... Normal [facility] Hemogram w/ Autodiffon 12-02 Abs Baso Cnt 0.1 10*3/uL Normal 0.0-0.2 [facility] Comment on above: Performed By: #### H EMDF, BMP3, LFT3, LIPA4, MG3 #### [facility] [address] [place] [address] Abs Neutrophile Cnt 8.2 10*3/uL High 1.8-7.0 [facility] Comment on above: Performed By: #### H EMDF, BMP3, LFT3, LIPA4, MG3 #### [facility] [address] [place] [address] Basophils/100 WBC (Bld) 0.7 % Normal 0.0-2.0 [facility] Comment on above: Performed By: #### H EMDF, BMP3, LFT3, LIPA4, MG3 #### [facility] [address] [place] [address] Eosinophils (Bld) [#/Vol] 0.1 10*3/uL Normal 0.0-0.5 [facility] Comment on above: Performed By: #### H EMDF, BMP3, LFT3, LIPA4, MG3 #### [facility] [address] [place] [address] Eosinophils/100 WBC (Bld) 0.8 % Low 1.0-6.0 [facility] Comment on above: Performed By: #### H EMDF, BMP3, LFT3, LIPA4, MG3 #### [facility] [address] [place] [address] Erythrocyte distribution width (RBC) [Ratio] 13.6 % Normal 11.5-14.5 [facility] Comment on above: Performed By: #### H EMDF, BMP3, LFT3, LIPA4, MG3 #### [facility] [address] [place] [address] Granulocytes/100 WBC (Bld) 76.9 % Normal 40.0-80.0 [facility] Comment on above: Performed By: #### H EMDF, BMP3, LFT3, LIPA4, MG3 #### [facility] [address] [place] [address] Hematocrit (Bld) [Volume fraction] 44.9 % Normal 40.0-52.0 [facility] Comment on above: Performed By: #### H EMDF, BMP3, LFT3, LIPA4, MG3 #### [facility] [address] [place] [address] Hemoglobin (Bld) [Mass/Vol] 15.1 g/dL Normal 13.0-18.0 [facility] Comment on above: Performed By: #### H EMDF, BMP3, LFT3, LIPA4, MG3 #### [facility] [address] [place] [address] Lymphocytes (Bld) [#/Vol] 1.5 10*3/uL Normal 1.0-4.3 [facility] Comment on above: Performed By: #### H EMDF, BMP3, LFT3, LIPA4, MG3 #### [facility] [address] [place] [address] Lymphocytes/100 WBC (Bld) 14.0 % Low 20.0-40.0 [facility] Comment on above: Performed By: #### H EMDF, BMP3, LFT3, LIPA4, MG3 #### [facility] [address] [place] [address] MCH (RBC) [Entitic mass] 32.8 pg Normal 26.0-34.0 [facility] Comment on above: Performed By: #### H EMDF, BMP3, LFT3, LIPA4, MG3 #### [facility] [address] [place] [address] MCHC 33.6 % Normal 32.0-36.0 [facility] Comment on above: Performed By: #### H EMDF, BMP3, LFT3, LIPA4, MG3 #### [facility] [address] [place] [address] MCV (RBC) [Entitic vol] 97.6 fL Normal 80.0-98.0 [facility] Comment on above: Performed By: #### H EMDF, BMP3, LFT3, LIPA4, MG3 #### [facility] [address] [place] [address] Monocytes (Bld) [#/Vol] 0.8 10*3/uL Normal 0.0-0.8 [facility] Comment on above: Performed By: #### H EMDF, BMP3, LFT3, LIPA4, MG3 #### [facility] [address] [place] [address] Monocytes/100 WBC (Bld) 7.6 % Normal 2.0-10.0 [facility] Comment on above: Performed By: #### H EMDF, BMP3, LFT3, LIPA4, MG3 #### [facility] [address] [place] [address] Platelet mean volume (Bld) [Entitic vol] 8.3 fL Normal 7.4-10.4 [facility] Comment on above: Performed By: #### H EMDF, BMP3, LFT3, LIPA4, MG3 #### [facility] [address] [place] [address] Platelets (Bld) [#/Vol] 219 10*3/uL Normal 140-440 [facility] Comment on above: Performed By: #### H EMDF, BMP3, LFT3, LIPA4, MG3 #### [facility] [address] [place] [address] RBC (Bld) [#/Vol] 4.60 10*6/uL Normal 4.40-5.90 [facility] Comment on above: Performed By: #### H EMDF, BMP3, LFT3, LIPA4, MG3 #### [facility] [address] [place] [address] WBC (Bld) [#/Vol] 10.6 10*3/uL Normal 3.6-10.7 [facility] Comment on above: Performed By: #### H EMDF, BMP3, LFT3, LIPA4, MG3 #### [facility] [address] [place] [address] Hepatic Functionon 2 ALP [Catalytic activity/Vol] 65 U/L Normal 38-126 [facility] Comment on above: Order Comment: SLIGH T HEMOLYSIS Performed By: #### H EMDF, BMP3, LFT3, LIPA4, MG3 #### [facility] [address] [place] [address] ALT [Catalytic activity/Vol] 82 U/L High 0-49 [facility] Comment on above: Order Comment: SLIGH T HEMOLYSIS Result Comment: The ALT test is performed by an updated assay method. Please note that the reference intervals have been changed and are now sex specific. Performed By: #### H EMDF, BMP3, LFT3, LIPA4, MG3 #### [facility] [address] [place] [address] AST [Catalytic activity/Vol] 79 U/L High 15-46 [facility] Comment on above: Order Comment: SLIGH T HEMOLYSIS Performed By: #### H EMDF, BMP3, LFT3, LIPA4, MG3 #### [facility] [address] [place] [address] Bilirubin [Mass/Vol] 0.7 mg/dL Normal 0.2-1.3 [facility] Comment on above: Order Comment: SLIGH T HEMOLYSIS Performed By: #### H EMDF, BMP3, LFT3, LIPA4, MG3 #### [facility] [address] [place] [address] Bilirubin.indirect [Mass/Vol] 0.0 mg/dL Normal 0.0-0.3 [facility] Comment on above: Order Comment: SLIGH T HEMOLYSIS Performed By: #### H EMDF, BMP3, LFT3, LIPA4, MG3 #### [facility] [address] [place] [address] Protein [Mass/Vol] 7.1 g/dL Normal 6.3-8.2 [facility] Comment on above: Order Comment: SLIGH T HEMOLYSIS Performed By: #### H EMDF, BMP3, LFT3, LIPA4, MG3 #### [facility] [address] [place] [address] Albumin [Mass/Vol] 4.0 g/dL Normal 3.5-5.0 [facility] Comment on above: Order Comment: SLIGH T HEMOLYSIS Performed By: #### H EMDF, BMP3, LFT3, LIPA4, MG3 #### [facility] [address] [place] [address] Lipaseon 12-02-2021 Lipase [Catalytic activity/Vol] 179 U/L Normal 23-300 [facility] Comment on above: Order Comment: SLIGH T HEMOLYSIS Performed By: #### H EMDF, BMP3, LFT3, LIPA4, MG3 ####[facility] [facility] [place] [address] Magnesiumon 12-02-2021 Magnesium [Mass/Vol] 1.8 mg/dL Normal 1.6-2.3 [facility] Comment on above: Order Comment: SLIGH T HEMOLYSIS Performed By: #### H EMDF, BMP3, LFT3, LIPA4, MG3 ####[facility] [place] [address] CT ABDOMEN W WO CONTRAST Add itional Contrast? NoneOrdered By: Corazon Tee on 08-15-2021 Patient Name: IZABELA LONDON Computed Tomography ACCESSION EXAM DATE/TIME PROCEDURE ORDERING PROVIDER [id number] 08/15/2021 09:[address] Abdomen w/ + w/o 5601 -CORAZON TEE Contrast CPT code 54552 Q9967 Reason For Exam (CT Abdomen w/ + w/o Contrast) hx. of complex right renal cyst and large right renal calculi found on RUQ u/s. please further evaluate Report EXAMINATION: CT of the Abdomen without and with Contrast. COMPARISON: None. REASON FOR STUDY: Complex right renal cyst and calculi on ultrasound of the right upper quadrant. TECHNIQUE: Contiguous multiplanar 3 mm images were extended from the lung bases through the upper pelvis before and after intravenous infusion of 75 mL of Isovue-370. FINDINGS: Lung Bases: No abnormality noted. Hepatobiliary: Hepatic parenchyma appears normal. Biliary tree is not appreciably dilated. Gallbladder appears normal. Solid Viscus: Medial limb of the left adrenal gland is asymmetrically enlarged and measures 3.2 cm x 1.2 cm in cross-section. Spleen, pancreas and right adrenal gland appear normal. Peritoneum, Retroperitoneum And Mesentery: No inflammatory change, free fluid or abnormal mass is shown. Genitourinary: A large exophytic right renal cyst is observed laterally in the interpolar aspect and measures 6.1 cm x 6.4 cm in is widest dimension; there is no appreciable septation or solid component and the mean attenuation units is in keeping with fluid. Multiple subcentimeter calculi are arrayed along the inner cortical margin of both kidneys. Renal collecting systems and ureters are not dilated. Gastrointestinal: Stomach appears normal. Computed Tomography Report Small bowel caliber, lo and mucosal pattern appear normal. Colonic caliber, lo and haustral pattern appear normal. Vasculature: No abnormality seen. Bones: Osseous structures appear intact. Degenerative changes are present in the lumbar spine. Soft Tissues: No significant findings. CONCLUSIONS: 1. Bilateral central subcentimeter nonobstructive renal calculi. 2. Large simple right renal cyst (Bosniak type I). 3. Probable left adrenal adenoma. Report Dictated on --- Final --- Dictating Physician: MD VILLAGRAN B NELSON Signed Date and Time: 08/15/2021 2:34 pm Signed by: MD VILLAGRAN B NELSON Transcribed Date and Time: 08/15/2021 2:35 [facility] Work Phone: [facility] Incoming Radiology Results From [facility] - 08/15/2021 2:35 PM EDT [facility]: [id number] Comput[facility] Tomography ACCESSION EXAM DATE/TIME PROCEDURE ORDERING PROVIDER [id number] 08/15/2021 09:[address] Abdomen w/ + w/o 5601 -GOSKECORAZON Contrast CPT code 61569 Q9967 Reason For Exam (CT Abdomen w/ + w/o Contrast) hx. of complex right renal cyst and large right renal calculi found on RUQ u/s. please further evaluate Report EXAMINATION: CT of the Abdomen without and with Contrast. COMPARISON: None. REASON FOR STUDY: Complex right renal cyst and calculi on ultrasound of the right upper quadrant. TECHNIQUE: Contiguous multiplanar 3 mm images were extended from the lung bases through the upper pelvis before and after intravenous infusion of 75 mL of Isovue-370. FINDINGS: Lung Bases: No abnormality noted. Hepatobiliary: Hepatic parenchyma appears normal. Biliary tree is not appreciably dilated. Gallbladder appears normal. Solid Viscus: Medial limb of the left adrenal gland is asymmetrically enlarged and measures 3.2 cm x 1.2 cm in cross-section. Spleen, pancreas and right adrenal gland appear normal. Peritoneum, Retroperitoneum And Mesentery: No inflammatory change, free fluid or abnormal mass is shown. Genitourinary: A large exophytic right renal cyst is observed laterally in the interpolar aspect and measures 6.1 cm x 6.4 cm in is widest dimension; there is no appreciable septation or solid component and the mean attenuation units is in keeping with fluid. Multiple subcentimeter calculi are arrayed along the inner cortical margin of both kidneys. Renal collecting systems and ureters are not dilated. Gastrointestinal: Stomach appears normal. Computed Tomography Report Small bowel caliber, lo and mucosal pattern appear normal. Colonic caliber, lo and haustral pattern appear normal. Vasculature: No abnormality seen. Bones: Osseous structures appear intact. Degenerative changes are present in the lumbar spine. Soft Tissues: No significant findings. CONCLUSIONS: 1. Bilateral central subcentimeter nonobstructive renal calculi. 2. Large simple right renal cyst (Bosniak type I). 3. Probable left adrenal adenoma. Report Dictated on --- Final --- Dictating Physician: MD VILLAGRAN B NELSON Signed Date and Time: 08/15/2021 2:34 pm Signed by: MD VILLAGRAN B NELSON Transcribed Date and Time: 08/15/2021 2:35 [facility] Work Phone: [facility] Work Phone: CT Abdomen w/ + w/o Contrast on 08-15-2021 CT Abdomen w/ + w/o Contrast Patient Name: IZABELA LONDON Computed Tomography ACCESSION EXAM DATE/TIME PROCEDURE ORDERING PROVIDER [id number] 08/15/2021 09:[address] Abdomen w/ + w/o 5601 -GOSKE, [place]ON Contrast CPT code 02980 Q9967 Reason For Exam (CT Abdomen w/ + w/o Contrast) hx. of complex right renal cyst and large right renal calculi found on RUQ u/s. please further evaluate Report EXAMINATION: CT of the Abdomen without and with Contrast. COMPARISON: None. REASON FOR STUDY: Complex right renal cyst and calculi on ultrasound of the right upper quadrant. TECHNIQUE: Contiguous multiplanar 3 mm images were extended from the lung bases through the upper pelvis before and after intravenous infusion of 75 mL of Isovue-370. FINDINGS: Lung Bases: No abnormality noted. Hepatobiliary: Hepatic parenchyma appears normal. Biliary tree is not appreciably dilated. Gallbladder appears normal. Solid Viscus: Medial limb of the left adrenal gland is asymmetrically enlarged and measures 3.2 cm x 1.2 cm in cross-section. Spleen, pancreas and right adrenal gland appear normal. Peritoneum, Retroperitoneum And Mesentery: No inflammatory change, free fluid or abnormal mass is shown. Genitourinary: A large exophytic right renal cyst is observed laterally in the interpolar aspect and measures 6.1 cm x 6.4 cm in is widest dimension; there is no appreciable septation or solid component and the mean attenuation units is in keeping with fluid. Multiple subcentimeter calculi are arrayed along the inner cortical margin of both kidneys. Renal collecting systems and ureters are not dilated. Gastrointestinal: Stomach appears normal. Computed Tomography Report Small bowel caliber, lo and mucosal pattern appear normal. Colonic caliber, lo and haustral pattern appear normal. Vasculature: No abnormality seen. Bones: Osseous structures appear intact. Degenerative changes are present in the lumbar spine. Soft Tissues: No significant findings. CONCLUSIONS: 1. Bilateral central subcentimeter nonobstructive renal calculi. 2. Large simple right renal cyst (Bosniak type I). 3. Probable left adrenal adenoma. Report Dictated on Final Dictating Physician: MD VILLAGRAN B NELSON Signed Date and Time: 08/15/2021 2:34 pm Signed by: MD VILLAGRAN B NELSON Transcribed Date and Time: 08/15/2021 2:35 Normal [facility] US ABDOMEN LIMITEDOrdered By : Jeramie Ching on 06-10-2021 Patient Name: IZABELA LONDON Ultrasound ACCESSION EXAM DATE/TIME PROCEDURE ORDERING PROVIDER [id number] 06/10/2021 08:10 EDT US Abdomen Limited MD CHING JOSEPH C. CPT code 34471 Reason For Exam (US Abdomen Limited) elevated lfts Report CLINICAL INFORMATION: Elevated liver function tests. Sonogram of the right upper quadrant is performed. The liver is normal in echotexture. No hyper or hypo echoic masses are seen. There is no intrahepatic biliary ductal dilatation. The gallbladder is normally distended. There are no gallstones, internal echoes, wall thickening, or pericholecystic fluid collections. The common bile duct diameter of 2.0 mm is within normal limits. The pancreas is incompletely visualized due to bowel gas artifact. No peripancreatic fluid collection is identified. Cursory examination of the right kidney is performed. The right renal length is 8.4 cm There is no hydronephrosis. In the upper pole of the right kidney is a nonobstructing 1 cm stone. Extending from the lateral aspect of the right kidney is a partially septated cyst measuring 5.3 x 5.4 x 5.3 cm There is no ascites in the right upper quadrant. IMPRESSION: Nonobstructing right renal stone. Septated right renal cyst, measuring up to 5.4 cm in diameter. Normal ultrasound appearance of the gallbladder and biliary tree. Incomplete visualization of the pancreas. Report Dictated on --- Final --- Dictating Physician: MD ESTRELLA LAURA Signed Date and Time: 06/10/2021 12:35 pm Signed by: MD ESTRELLA LAURA Transcribed Date and Time: 06/10/2021 12:36 [facility] Work Phone: [facility] Incoming Radiology Results From [facility] - 06/10/2021 12:36 PM EDT Patient Name: IZABELA LONDON Ultrasound ACCESSION EXAM DATE/TIME PROCEDURE ORDERING PROVIDER [id number] 06/10/2021 08:10 EDT US Abdomen Limited MD CHING JOSEPH C. CPT code 98374 Reason For Exam (US Abdomen Limited) elevated lfts Report CLINICAL INFORMATION: Elevated liver function tests. Sonogram of the right upper quadrant is performed. The liver is normal in echotexture. No hyper or hypo echoic masses are seen. There is no intrahepatic biliary ductal dilatation. The gallbladder is normally distended. There are no gallstones, internal echoes, wall thickening, or pericholecystic fluid collections. The common bile duct diameter of 2.0 mm is within normal limits. The pancreas is incompletely visualized due to bowel gas artifact. No peripancreatic fluid collection is identified. Cursory examination of the right kidney is performed. The right renal length is 8.4 cm There is no hydronephrosis. In the upper pole of the right kidney is a nonobstructing 1 cm stone. Extending from the lateral aspect of the right kidney is a partially septated cyst measuring 5.3 x 5.4 x 5.3 cm There is no ascites in the right upper quadrant. IMPRESSION: Nonobstructing right renal stone. Septated right renal cyst, measuring up to 5.4 cm in diameter. Normal ultrasound appearance of the gallbladder and biliary tree. Incomplete visualization of the pancreas. Report Dictated on --- Final --- Dictating Physician: MD ESTRELLA LAURA Signed Date and Time: 06/10/2021 12:35 pm Signed by: MD ESTRELLA LAURA Transcribed Date and Time: 06/10/2021 12:36 [facility] Work Phone: [facility] Work Phone: US Abdomen Limitedon 021 US Abdomen Limited Patient Name: IZABELA LONDON Ultrasound ACCESSION EXAM DATE/TIME PROCEDURE ORDERING PROVIDER [id number] 06/10/2021 08:10 EDT US Abdomen Limited MD CHING JOSEPH C. CPT code 58541 Reason For Exam (US Abdomen Limited) elevated lfts Report CLINICAL INFORMATION: Elevated liver function tests. Sonogram of the right upper quadrant is performed. The liver is normal in echotexture. No hyper or hypo echoic masses are seen. There is no intrahepatic biliary ductal dilatation. The gallbladder is normally distended. There are no gallstones, internal echoes, wall thickening, or pericholecystic fluid collections. The common bile duct diameter of 2.0 mm is within normal limits. The pancreas is incompletely visualized due to bowel gas artifact. No peripancreatic fluid collection is identified. Cursory examination of the right kidney is performed. The right renal length is 8.4 cm There is no hydronephrosis. In the upper pole of the right kidney is a nonobstructing 1 cm stone. Extending from the lateral aspect of the right kidney is a partially septated cyst measuring 5.3 x 5.4 x 5.3 cm There is no ascites in the right upper quadrant. IMPRESSION: Nonobstructing right renal stone. Septated right renal cyst, measuring up to 5.4 cm in diameter. Normal ultrasound appearance of the gallbladder and biliary tree. Incomplete visualization of the pancreas. Report Dictated on Final Dictating Physician: MD ESTRELLA LAURA Signed Date and Time: 06/10/2021 12:35 pm Signed by: MD ESTRELLA LAURA Transcribed Date and Time: 06/10/2021 12:36 Normal [facility] NM Bone Imaging Whole Bodyon 04-02-2021 NM Bone Imaging Whole Body Patient Name: IZABELA LONDON Nuclear Medicine ACCESSION EXAM DATE/TIME PROCEDURE ORDERING PROVIDER [id number] 04/02/2021 10:42 EDT NM Bone Imaging Whole KRISTEN URIAS Body CPT code 99475 Reason For Exam (NM Bone Imaging Whole Body) Malignant neoplasm of prostate Report Indication: Malignant neoplasm of prostate. Comparison 05/24/2020, 11/29/2019 bone scan Dose: 22.7 mCi technetium 99m MDP. FINDINGS: Planar whole body imaging was performed. Again seen is a focus of increased activity in the right femoral neck, with increased intensity compared to most recent previous, yet approximately the same as 11-29-2019.. Stable degenerative appearing increased uptake including costochondral region, spine, shoulder regions sternoclavicular joints wrists right knee feet and ankles. Left knee replaced. IMPRESSION: Stable sized metastatic lesion right femoral neck. Intensity greater than seen in the most recent previous bone scan, and approximately the same as seen on 11/29/2019. No definite new lesions seen. Follow-up recommended. Report Dictated on Final Dictating Physician: MD ROSE JOHN Signed Date and Time: 04/02/2021 2:09 pm Signed by: MD ROSE JOHN Transcribed Date and Time: 04/02/2021 2:11 Normal [facility] NM Bone Scan Whole BodyOrder ed By: Kristen Urias on 04-02-2021 Patient Name: IZABELA LONDON Nuclear Medicine ACCESSION EXAM DATE/TIME PROCEDURE ORDERING PROVIDER [id number] 04/02/2021 10:42 EDT NM Bone Imaging Whole KRISTEN URIAS CPT code 01621 Reason For Exam (NM Bone Imaging Whole Body) Malignant neoplasm of prostate Report Indication: Malignant neoplasm of prostate. Comparison 05/24/2020, 11/29/2019 bone scan Dose: 22.7 mCi technetium 99m MDP. FINDINGS: Planar whole body imaging was performed. Again seen is a focus of increased activity in the right femoral neck, with increased intensity compared to most recent previous, yet approximately the same as 11-29-2019.. Stable degenerative appearing increased uptake including costochondral region, spine, shoulder regions sternoclavicular joints wrists right knee feet and ankles. Left knee replaced. IMPRESSION: Stable sized metastatic lesion right femoral neck. Intensity greater than seen in the most recent previous bone scan, and approximately the same as seen on 11/29/2019. No definite new lesions seen. Follow-up recommended. Report Dictated on --- Final --- Dictating Physician: MD ROSE JOHN Signed Date and Time: 04/02/2021 2:09 pm Signed by: MD ROSE JOHN Transcribed Date and Time: 04/02/2021 2:11 [facility] Work Phone: [facility] Incoming Radiology Results From [facility] - 04/02/2021 2:11 PM EDT Patient Name: IZABELA LONDON Nuclear Medicine ACCESSION EXAM DATE/TIME PROCEDURE ORDERING PROVIDER [id number] 04/02/2021 10:42 EDT NM Bone Imaging Whole ADONAY, KRISTEN Body CPT code 54655 Reason For Exam (NM Bone Imaging Whole Body) Malignant neoplasm of prostate Report Indication: Malignant neoplasm of prostate. Comparison 05/24/2020, 11/29/2019 bone scan Dose: 22.7 mCi technetium 99m MDP. FINDINGS: Planar whole body imaging was performed. Again seen is a focus of increased activity in the right femoral neck, with increased intensity compared to most recent previous, yet approximately the same as 11-29-2019.. Stable degenerative appearing increased uptake including costochondral region, spine, shoulder regions sternoclavicular joints wrists right knee feet and ankles. Left knee replaced. IMPRESSION: Stable sized metastatic lesion right femoral neck. Intensity greater than seen in the most recent previous bone scan, and approximately the same as seen on 11/29/2019. No definite new lesions seen. Follow-up recommended. Report Dictated on --- Final --- Dictating Physician: MD ROSE JOHN Signed Date and Time: 04/02/2021 2:09 pm Signed by: MD ROSE JOHN Transcribed Date and Time: 04/02/2021 2:11 [facility] Work Phone: [facility] Work Phone: CR Pelvis 1 or 2 Viewson CR Pelvis 1 or 2 Views Patient Name: IZABELA LONDON [facility]#: [id number] Diagnostic Radiology ACCESSION EXAM DATE/TIME PROCEDURE ORDERING PROVIDER [id number] 12/23/2020 09:23 EST CR Pelvis 1 or 2 Views RANJITH TEE, CORAZON Burger CPT code 09250 Reason For Exam (CR Pelvis 1 or 2 Views) hip pain. hx of metastatic prostate cancer Report CLINICAL INFORMATION: Right hip pain. History of metastatic prostate cancer. Pelvis: Correlation is made with the radionuclide bone scan of 05/24/2020. Comparison is made to a joint survey examination of 11/02/2019. A single AP supine view of the pelvis demonstrates no evidence of acute fracture or femoral head dislocation. The sacrum, iliac wings and rami are intact. The hip joints are well-maintained. There are small lateral right superior acetabular osteophytes. There is a subtle area of sclerosis in the mid right femoral neck corresponding to an area of abnormal radiotracer uptake on the prior bone scan and new from the prior joint survey examination suspicious for a small osteoblastic metastatic lesion. No other osteolytic or osteoblastic lesions are identified. No bone erosion or periosteal reaction is seen. There are mild degenerative changes of the sacroiliac joints. There is no significant abnormality of the symphysis pubis. IMPRESSION: 1. Mild degenerative arthritis of the right hip. 2. Subtle sclerotic lesion of the subtle sclerotic lesion in the mid right femoral neck suspicious for a small metastatic lesion. 3. No other osteolytic or osteoblastic bone lesions are identified. Report Dictated on Final Dictated: 12/24/2020 7:26 am Dictating Physician: MD TABOR HARLAN Signed Date and Time: 12/24/2020 7:48 am Signed by: MD TABOR HARLAN Transcribed Date and Time: 12/24/2020 7:26 Normal [facility] XR KNEE BILATERAL STANDINGon 07-04-2020 Patient Name: IZABELA LONDON ---Diagnostic Radiology--- Exam Date/Time 07/04/2020 08:10:00 EDT Exam CR Knee Standing AP Bilateral Ordering Physician MD AMBROSIO KIEL JOHASEN Accession Number [id number] CPT4 Codes 25284 () Reason For Exam pain Report LEFT KNEE History: Knee pain, prior arthroplasty Comparison: 08/03/2019 Findings: Lateral and skyline patellar views of the left knee show total knee arthroplasty of unremarkable alignment, similar to last exam. There are marginal patellar spurs and postsurgical changes. Prior soft tissue swelling have decreased. There is no acute fracture, dislocation, periosteal reaction.. FRONTAL WEIGHT-BEARING VIEWS OF BOTH KNEES History: Knee pain Comparison: 08/03/2019 Findings: Two views (routine AP and flexion PA weightbearing views) of both knees were obtained. Evaluation of the right knee is limited due to lack of other views.. To the extent visualized, there is mild right knee osteoarthritis with narrowed medial tibiofemoral joint space and marginal spurs. Left knee arthroplasty is similar to last exam. There is no acute fracture, dislocation, or periosteal reaction. There is probable mild genu valgum. IMPRESSION: No acute process. Left knee arthroplasty. Mild right knee osteoarthritis. Report Dictated on --- Final --- Dictating Physician: MD CRUZ AHMAD Signed Date and Time: 07/04/2020 8:34 am Signed by: MD CRUZ AHMAD Transcribed Date and Time: 07/04/2020 8:35 [facility] [place] [facility] Incoming Radiology Results From [facility] - 07/04/2020 8:35 AM EDT Patient Name: IZABELA LONDON ---Diagnostic Radiology--- Exam Date/Time 07/04/2020 08:10:00 EDT Exam CR Knee Standing AP Bilateral Ordering Physician MD AMBROSIO KIEL JOHASEN Accession Number [id number] CPT4 Codes 71755 () Reason For Exam pain Report LEFT KNEE History: Knee pain, prior arthroplasty Comparison: 08/03/2019 Findings: Lateral and skyline patellar views of the left knee show total knee arthroplasty of unremarkable alignment, similar to last exam. There are marginal patellar spurs and postsurgical changes. Prior soft tissue swelling have decreased. There is no acute fracture, dislocation, periosteal reaction.. FRONTAL WEIGHT-BEARING VIEWS OF BOTH KNEES History: Knee pain Comparison: 08/03/2019 Findings: Two views (routine AP and flexion PA weightbearing views) of both knees were obtained. Evaluation of the right knee is limited due to lack of other views.. To the extent visualized, there is mild right knee osteoarthritis with narrowed medial tibiofemoral joint space and marginal spurs. Left knee arthroplasty is similar to last exam. There is no acute fracture, dislocation, or periosteal reaction. There is probable mild genu valgum. IMPRESSION: No acute process. Left knee arthroplasty. Mild right knee osteoarthritis. Report Dictated on --- Final --- Dictating Physician: MD CRUZ AHMAD Signed Date and Time: 07/04/2020 8:34 am Signed by: MD CRUZ AHMAD Transcribed Date and Time: 07/04/2020 8:35 [place] XR KNEE LEFT (1-2 VIEWS)on 0 07-04-2020 Patient Name: IZABELA LONDON ---Diagnostic Radiology--- Exam Date/Time 07/04/2020 08:10:00 EDT Exam CR Knee 1 or 2 Views Left Ordering Physician MD KIMBER, KADEEM CLANCY Accession Number [id number] CPT4 Codes 06346 () Reason For Exam pain Report LEFT KNEE History: Knee pain, prior arthroplasty Comparison: 08/03/2019 Findings: Lateral and skyline patellar views of the left knee show total knee arthroplasty of unremarkable alignment, similar to last exam. There are marginal patellar spurs and postsurgical changes. Prior soft tissue swelling have decreased. There is no acute fracture, dislocation, periosteal reaction.. FRONTAL WEIGHT-BEARING VIEWS OF BOTH KNEES History: Knee pain Comparison: 08/03/2019 Findings: Two views (routine AP and flexion PA weightbearing views) of both knees were obtained. Evaluation of the right knee is limited due to lack of other views.. To the extent visualized, there is mild right knee osteoarthritis with narrowed medial tibiofemoral joint space and marginal spurs. Left knee arthroplasty is similar to last exam. There is no acute fracture, dislocation, or periosteal reaction. There is probable mild genu valgum. IMPRESSION: No acute process. Left knee arthroplasty. Mild right knee osteoarthritis. Report Dictated on Workstation: [facility] --- Final --- Dictating Physician: MD CRUZ AHMAD Signed Date and Time: 07/04/2020 8:34 am Signed by: MD CRUZ AHMAD Transcribed Date and Time: 07/04/2020 8:35 [facility] [place] [place] [facility] Incoming Radiology Results From [facility] - 07/04/2020 8:35 AM EDT Patient Name: IZABELA LONDON ---Diagnostic Radiology--- Exam Date/Time 07/04/2020 08:10:00 EDT Exam CR Knee 1 or 2 Views Left Ordering Physician MD KIMBER, KADEEM CLANCY Accession Number [id number] CPT4 Codes 04480 () Reason For Exam pain Report LEFT KNEE History: Knee pain, prior arthroplasty Comparison: 08/03/2019 Findings: Lateral and skyline patellar views of the left knee show total knee arthroplasty of unremarkable alignment, similar to last exam. There are marginal patellar spurs and postsurgical changes. Prior soft tissue swelling have decreased. There is no acute fracture, dislocation, periosteal reaction.. FRONTAL WEIGHT-BEARING VIEWS OF BOTH KNEES History: Knee pain Comparison: 08/03/2019 Findings: Two views (routine AP and flexion PA weightbearing views) of both knees were obtained. Evaluation of the right knee is limited due to lack of other views.. To the extent visualized, there is mild right knee osteoarthritis with narrowed medial tibiofemoral joint space and marginal spurs. Left knee arthroplasty is similar to last exam. There is no acute fracture, dislocation, or periosteal reaction. There is probable mild genu valgum. IMPRESSION: No acute process. Left knee arthroplasty. Mild right knee osteoarthritis. Report Dictated on --- Final --- Dictating Physician: MD CRUZ AHMAD Signed Date and Time: 07/04/2020 8:34 am Signed by: MD CRUZ AHMAD Transcribed Date and Time: 07/04/2020 8:35 [place], [place] NM BONE SCAN WHOLE BODYon Patient Name: IZABELA LONDON ---Nuc Med--- Exam Date/Time 05/24/2020 12:23:26 EDT Exam NM Bone Imaging Whole Body Ordering Physician JERAMIE SARMIENTO Accession Number [id number] CPT4 Codes 41044 () Reason For Exam Prostate cancer , previous abnormal right femoral neck, current;y receiving hormonal suppression and PSA lower , please compare to previous imaging Report BONE SCINTIGRAPHY (WHOLE BODY) CLINICAL INDICATION: Prostate cancer, previous lesion noted in femoral neck. Now receiving hormonal suppression with lower PSA. Delayed whole body imaging was performed in the standard anterior and posterior projections following the intravenous administration of 23 mCi of technetium-99m MDP. Additional spot views of the skull, pelvis, and ribs were also obtained. COMPARISON: Bone scan dated 11/29/2019 FINDINGS: There is a small focus of abnormal increased tracer accumulation within the right femoral neck, which corresponds to a sclerotic lesion on the CT from 11/29/2019. This is consistent with an osseous metastasis, and perhaps appears slightly less intense in tracer uptake when compared to the prior examination. There is also a punctate focus of increased tracer uptake along the left margin of the sternum, which appears unchanged. No new areas of abnormal tracer uptake are identified to suggest progression of osseous metastatic disease. A left knee arthroplasty is noted. There are likely degenerative changes within the shoulders, sternoclavicular joints, wrists, right knee, and bilateral ankles. Mild diffuse tracer uptake within the thoracic and lumbar spine is also likely degenerative. IMPRESSION: There is a small focus of increased tracer uptake within the right femoral neck, consistent with a small bony metastasis. This appears slightly less intense in tracer uptake when compared to the bone scan from 11/29/2019. No new areas of abnormal tracer uptake are seen to suggest progression of osseous metastatic disease. Punctate focus of increased tracer uptake at the left margin of the lower sternum is nonspecific and appears stable when compared to the prior examination. Likely degenerative changes of the spine and joints as above. Report Dictated on --- Final --- Dictating Physician: MD MCWILLIAMS JONATHAN R Signed Date and Time: 05/24/2020 2:24 pm Signed by: MD MCWILLIAMS JONATHAN R Transcribed Date and Time: 05/24/2020 2:25 [facility] [place] [place] [facility] Incoming Radiology Results From [facility] - 05/24/2020 2:25 PM EDT Patient Name: IZABELA LONDON ---Nuc Med--- Exam Date/Time 05/24/2020 12:23:26 EDT Exam NM Bone Imaging Whole Body Ordering Physician JERAMIE SARMIENTO Accession Number [id number] CPT4 Codes 64910 () Reason For Exam Prostate cancer , previous abnormal right femoral neck, current;y receiving hormonal suppression and PSA lower , please compare to previous imaging Report BONE SCINTIGRAPHY (WHOLE BODY) CLINICAL INDICATION: Prostate cancer, previous lesion noted in femoral neck. Now receiving hormonal suppression with lower PSA. Delayed whole body imaging was performed in the standard anterior and posterior projections following the intravenous administration of 23 mCi of technetium-99m MDP. Additional spot views of the skull, pelvis, and ribs were also obtained. COMPARISON: Bone scan dated 11/29/2019 FINDINGS: There is a small focus of abnormal increased tracer accumulation within the right femoral neck, which corresponds to a sclerotic lesion on the CT from 11/29/2019. This is consistent with an osseous metastasis, and perhaps appears slightly less intense in tracer uptake when compared to the prior examination. There is also a punctate focus of increased tracer uptake along the left margin of the sternum, which appears unchanged. No new areas of abnormal tracer uptake are identified to suggest progression of osseous metastatic disease. A left knee arthroplasty is noted. There are likely degenerative changes within the shoulders, sternoclavicular joints, wrists, right knee, and bilateral ankles. Mild diffuse tracer uptake within the thoracic and lumbar spine is also likely degenerative. IMPRESSION: There is a small focus of increased tracer uptake within the right femoral neck, consistent with a small bony metastasis. This appears slightly less intense in tracer uptake when compared to the bone scan from 11/29/2019. No new areas of abnormal tracer uptake are seen to suggest progression of osseous metastatic disease. Punctate focus of increased tracer uptake at the left margin of the lower sternum is nonspecific and appears stable when compared to the prior examination. Likely degenerative changes of the spine and joints as above. Report Dictated on --- Final --- Dictating Physician: MD MCWILLIAMS JONATHAN R Signed Date and Time: 05/24/2020 2:24 pm Signed by: MD MCWILLIAMS JONATHAN R Transcribed Date and Time: 05/24/2020 2:25 [place], [place] CT PELVIS W CONTRAST Additio nal Contrast? Noneon 11-29-2019 Patient Name: IZABELA LONDON ---CT--- Exam Date/Time 11/29/2019 09:43:[address] Pelvis w/ Contrast (IV Only) Ordering Physician JERAMIE SARMIENTO Accession Number [id number] CPT4 Codes Q9967 (CT ISOVUE 370MG/ML&[id number]&ML &1), 18458 (CT Pelvis w/ Contrast (IV Only)) Reason For Exam Prostate cancer , high grade , newly diagnosed Report CT pelvis with contrast Clinical indications: High-grade prostate cancer, newly diagnosed Following the intravenous administration of 75 mL of Isovue-370 contrast, contrast-enhanced CT images of the pelvis were obtained. Oral contrast was also given for this study. Coronal and sagittal reformatted images were also made available for interpretation. COMPARISON: CT dated 04/20/2014, bone scan dated 11/29/2019 FINDINGS: The prostate appears enlarged. The urinary bladder appears grossly normal. No pelvic lymphadenopathy is identified. There is atherosclerotic calcification of the aorta and iliac arteries. Low-density lesion partially visualized arising from the inferolateral cortex of the right kidney is likely to represent a cyst, however is not fully imaged. There is mild diverticulosis of the distal colon without evidence of diverticulitis. Visualized loops of large and small bowel are normal in caliber. Evaluation of the bone windows demonstrates a sclerotic lesion measuring approximately 1 cm within the right femoral neck, best seen on axial image 7103. This is not present on the prior CT examination from 2013. No additional lytic or blastic lesions are observed. Laminectomy and fusion changes are noted within the lower lumbar spine. IMPRESSION: Enlarged prostate. No lymphadenopathy is identified within the pelvis. 1 cm sclerotic lesion within the right femoral neck, suspicious for bony metastasis. This lesion demonstrates abnormal increased tracer uptake on nuclear bone scan, dictated separately, also consistent with bony metastasis. Low-density lesion incompletely visualized arising from the lateral cortex of the right kidney. This is likely to represent a cyst, however is not fully viewed. Report Dictated on --- Final --- Dictating Physician: MD MCWILLIAMS JONATHAN R Signed Date and Time: 11/29/2019 4:07 pm Signed by: MD MCWILLIAMS JONATHAN R Transcribed Date and Time: 11/29/2019 4:09 [facility] Work Phone: [facility] 11[facility]29/2019 4:09 PM EST Patient Name: IZABELA LONDON ---CT--- Exam Date/Time 11/29/2019 09:43:[address] Pelvis w/ Contrast (IV Only) Ordering Physician JERAMIE SARMIENTO Accession Number [id number] CPT4 Codes Q9967 (CT ISOVUE 370MG/ML&[id number]&ML &1), 59706 (CT Pelvis w/ Contrast (IV Only)) Reason For Exam Prostate cancer , high grade , newly diagnosed Report CT pelvis with contrast Clinical indications: High-grade prostate cancer, newly diagnosed Following the intravenous administration of 75 mL of Isovue-370 contrast, contrast-enhanced CT images of the pelvis were obtained. Oral contrast was also given for this study. Coronal and sagittal reformatted images were also made available for interpretation. COMPARISON: CT dated 04/20/2014, bone scan dated 11/29/2019 FINDINGS: The prostate appears enlarged. The urinary bladder appears grossly normal. No pelvic lymphadenopathy is identified. There is atherosclerotic calcification of the aorta and iliac arteries. Low-density lesion partially visualized arising from the inferolateral cortex of the right kidney is likely to represent a cyst, however is not fully imaged. There is mild diverticulosis of the distal colon without evidence of diverticulitis. Visualized loops of large and small bowel are normal in caliber. Evaluation of the bone windows demonstrates a sclerotic lesion measuring approximately 1 cm within the right femoral neck, best seen on axial image 7103. This is not present on the prior CT examination from 2013. No additional lytic or blastic lesions are observed. Laminectomy and fusion changes are noted within the lower lumbar spine. IMPRESSION: Enlarged prostate. No lymphadenopathy is identified within the pelvis. 1 cm sclerotic lesion within the right femoral neck, suspicious for bony metastasis. This lesion demonstrates abnormal increased tracer uptake on nuclear bone scan, dictated separately, also consistent with bony metastasis. Low-density lesion incompletely visualized arising from the lateral cortex of the right kidney. This is likely to represent a cyst, however is not fully viewed. Report Dictated on --- Final --- Dictating Physician: MD MCWILLIAMS JONATHAN R Signed Date and Time: 11/29/2019 4:07 pm Signed by: MD MCWILLIAMS JONATHAN R Transcribed Date and Time: 11/29/2019 4:09 [facility] Work Phone: NM BONE SCAN WHOLE BODYon Patient Name: IZABELA LONDON ---Nuc Med--- Exam Date/Time 11/29/2019 13:02:43 EST Exam NM Bone Imaging Whole Body Ordering Physician JERAMIE SARMIENTO Accession Number [id number] CPT4 Codes 50158 () Reason For Exam Prostate cancer , high grade , newly diagnosed Report BONE SCINTIGRAPHY (WHOLE BODY) CLINICAL INDICATION: Prostate cancer Delayed whole body imaging was performed in the standard anterior and posterior projections following the intravenous administration of 23 mCi of technetium-99m MDP. Additional spot views of the skull, pelvis, and ribs were also obtained. COMPARISON: CT pelvis performed the same day FINDINGS: There is a small focus of abnormal increased tracer accumulation within the right femoral neck, which corresponds to a sclerotic lesion on the CT from 11/29/2019. This is consistent with an osseous metastasis. There is also a punctate focus of increased tracer uptake along the left margin of the sternum, which is nonspecific and could represent an additional small metastatic lesion. A left knee arthroplasty is noted. There are likely degenerative changes within the shoulders, sternoclavicular joints, wrists, right knee, and bilateral ankles. Mild diffuse tracer uptake within the thoracic and lumbar spine is also likely degenerative. IMPRESSION: There is a small focus of increased tracer uptake within the right femoral neck with a corresponding sclerotic lesion on the CT from the same day. This is consistent with a small bony metastasis. Punctate focus of increased tracer uptake at the left margin of the lower sternum is nonspecific, however may also represent a tiny bony metastasis. Likely degenerative changes of the spine and joints as above. Report Dictated on --- Final --- Dictating Physician: MD MCWILLIAMS JONATHAN R Signed Date and Time: 11/29/2019 3:32 pm Signed by: MD MCWILLIAMS JONATHAN R Transcribed Date and Time: 11/29/2019 3:33 [facility] Work Phone: [facility] Incoming Radiology Results From [facility] - 11/29/2019 3:33 PM EST Patient Name: IZABELA LONDON ---Nuc Med--- Exam Date/Time 11/29/2019 13:02:43 EST Exam NM Bone Imaging Whole Body Ordering Physician JERAMIE SARMIENTO Accession Number [id number] CPT4 Codes 50339 () Reason For Exam Prostate cancer , high grade , newly diagnosed Report BONE SCINTIGRAPHY (WHOLE BODY) CLINICAL INDICATION: Prostate cancer Delayed whole body imaging was performed in the standard anterior and posterior projections following the intravenous administration of 23 mCi of technetium-99m MDP. Additional spot views of the skull, pelvis, and ribs were also obtained. COMPARISON: CT pelvis performed the same day FINDINGS: There is a small focus of abnormal increased tracer accumulation within the right femoral neck, which corresponds to a sclerotic lesion on the CT from 11/29/2019. This is consistent with an osseous metastasis. There is also a punctate focus of increased tracer uptake along the left margin of the sternum, which is nonspecific and could represent an additional small metastatic lesion. A left knee arthroplasty is noted. There are likely degenerative changes within the shoulders, sternoclavicular joints, wrists, right knee, and bilateral ankles. Mild diffuse tracer uptake within the thoracic and lumbar spine is also likely degenerative. IMPRESSION: There is a small focus of increased tracer uptake within the right femoral neck with a corresponding sclerotic lesion on the CT from the same day. This is consistent with a small bony metastasis. Punctate focus of increased tracer uptake at the left margin of the lower sternum is nonspecific, however may also represent a tiny bony metastasis. Likely degenerative changes of the spine and joints as above. Report Dictated on --- Final --- Dictating Physician: MD MCWILLIAMS JONATHAN R Signed Date and Time: 11/29/2019 3:32 pm Signed by: MD MCWILLIAMS JONATHAN R Transcribed Date and Time: 11/29/2019 3:33 [facility] Work Phone: XR Joint Survey 1 ViewOrdere d By: Kadeem Ambrosio on 11-02-2019 Patient Name: IZABELA LONDON ---Diagnostic Radiology--- Exam Date/Time 11/02/2019 10:44:39 EST Exam CR Joint Survey Single View 1/More Joint Ordering Physician MD KIMBER, KADEEM CLANCY Accession Number [id number] CPT4 Codes 61687 () Reason For Exam M17.12 OSTEOARTHRITIS LEFT KNEE Z96.652 POST LEFT KNEE REPLACEMENT Report Examination: AP pelvis with three additional views of the bilateral lower extremities, including a full length stitched view Indication: M17.12 OSTEOARTHRITIS LEFT KNEE Z96.652 POST LEFT KNEE REPLACEMENT Findings: Posterior spinal fixation of the lower lumbar spine is present at L4/L5 with laminectomy changes at L4-L5. Mild degenerative changes of the hips are present. There is a total knee arthroplasty on the left without adjacent lucency or fracture. Moderate to severe medial compartment joint space loss of the right knee is noted. The ankles are grossly unremarkable with mild degenerative changes. Leg length are grossly symmetric, with the right measuring 93.68 and the left measuring 93.62 cm from the top of the femoral head to the tibiotalar joint.. Impression: No acute osseous abnormality. Report Dictated on --- Final --- Dictating Physician: MD BRAY KRIKOR Signed Date and Time: 11/02/2019 11:39 am Signed by: MD BRAY KRIKOR Transcribed Date and Time: 11/02/2019 11:40 [facility] Work Phone: [facility], [facility] Incoming Radiology Results From [facility] - 11/02/2019 11:40 AM EST Patient Name: IZABELA LONDON ---Diagnostic Radiology--- Exam Date/Time 11/02/2019 10:44:39 EST Exam CR Joint Survey Single View 1/More Joint Ordering Physician MD AMBROSIO KIEL JOHASEN Accession Number [id number] CPT4 Codes 17664 () Reason For Exam M17.12 OSTEOARTHRITIS LEFT KNEE Z96.652 POST LEFT KNEE REPLACEMENT Report Examination: AP pelvis with three additional views of the bilateral lower extremities, including a full length stitched view Indication: M17.12 OSTEOARTHRITIS LEFT KNEE Z96.652 POST LEFT KNEE REPLACEMENT Findings: Posterior spinal fixation of the lower lumbar spine is present at L4/L5 with laminectomy changes at L4-L5. Mild degenerative changes of the hips are present. There is a total knee arthroplasty on the left without adjacent lucency or fracture. Moderate to severe medial compartment joint space loss of the right knee is noted. The ankles are grossly unremarkable with mild degenerative changes. Leg length are grossly symmetric, with the right measuring 93.68 and the left measuring 93.62 cm from the top of the femoral head to the tibiotalar joint.. Impression: No acute osseous abnormality. Report Dictated on --- Final --- Dictating Physician: MD BRAY KRIKOR Signed Date and Time: 11/02/2019 11:39 am Signed by: MD BRAY KRIKOR Transcribed Date and Time: 11/02/2019 11:40 [facility] Work Phone: XR KNEE LEFT (1-2 VIEWS)on 1 Patient Name: IZABELA LONDON ---Diagnostic Radiology--- Exam Date/Time 08/03/2019 09:26:00 EDT Exam CR Knee 1 or 2 Views Left Ordering Physician MD AMBROSIO KIEL JOHASEN Accession Number [id number] CPT4 Codes 36523 () Reason For Exam Z96.652 POST LEFT KNEE REPLACEMENT Report Examination: AP weightbearing and left knee Clinical Indication: Postop Comparison: 07/05/2019 Findings: AP bilateral weightbearing and skyline and lateral views of the left knee. AP weightbearing views demonstrate no varus or valgus angulation. Left total knee arthroplasty in good alignment with symmetric medial and lateral compartment polyethylene. Right knee demonstrates advanced medial compartment joint space narrowing with some osteoarthropathy. Degenerative beaking of the right tibial spines. Left total knee arthroplasty is now identified. Overall alignment is anatomic. There is a small amount of intra-articular fluid within the joint space. Joint spaces appear grossly maintained. There has been resurfacing of the patella. Enthesophyte seen along the superior patellar margin. Impression: 1. Status post left total knee arthroplasty in grossly normal anatomic alignment. 2. Enthesophyte superior patellar margin. 3. Moderate right knee osteoarthropathy medial compartment with significant medial compartment joint space narrowing. No significant abnormal angulation. Report Dictated on --- Final --- Dictating Physician: MD BEYER ANTHONY J Signed Date and Time: 08/03/2019 9:47 am Signed by: MD BEYER ANTHONY J Transcribed Date and Time: 08/03/2019 9:48 [place], [place] [facility] Incoming Radiology Results From [facility] - 08/03/2019 9:48 AM EDT Patient Name: IZABELA LONDON ---Diagnostic Radiology--- Exam Date/Time 08/03/2019 09:26:00 EDT Exam CR Knee 1 or 2 Views Left Ordering Physician MD KIMBER, KADEEM CLANCY Accession Number [id number] CPT4 Codes 74478 () Reason For Exam Z96.652 POST LEFT KNEE REPLACEMENT Report Examination: AP weightbearing and left knee Clinical Indication: Postop Comparison: 07/05/2019 Findings: AP bilateral weightbearing and skyline and lateral views of the left knee. AP weightbearing views demonstrate no varus or valgus angulation. Left total knee arthroplasty in good alignment with symmetric medial and lateral compartment polyethylene. Right knee demonstrates advanced medial compartment joint space narrowing with some osteoarthropathy. Degenerative beaking of the right tibial spines. Left total knee arthroplasty is now identified. Overall alignment is anatomic. There is a small amount of intra-articular fluid within the joint space. Joint spaces appear grossly maintained. There has been resurfacing of the patella. Enthesophyte seen along the superior patellar margin. Impression: 1. Status post left total knee arthroplasty in grossly normal anatomic alignment. 2. Enthesophyte superior patellar margin. 3. Moderate right knee osteoarthropathy medial compartment with significant medial compartment joint space narrowing. No significant abnormal angulation. Report Dictated on --- Final --- Dictating Physician: MD BEYER ANTHONY J Signed Date and Time: 08/03/2019 9:47 am Signed by: MD BEYER ANTHONY J Transcribed Date and Time: 08/03/2019 9:48 [place], [place] XR Knee Bilateral Standingon 08-03-2019 Patient Name: IZABELA LONDON ---Diagnostic Radiology--- Exam Date/Time 08/03/2019 09:26:00 EDT Exam CR Knee Standing AP Bilateral Ordering Physician MD KIMBER, KADEEM CLANCY Accession Number [id number] CPT4 Codes 28655 () Reason For Exam M17.12 PRIMARY OSTEOARTHRITIS OF LEFT KNEE Report Examination: AP weightbearing and left knee Clinical Indication: Postop Comparison: 07/05/2019 Findings: AP bilateral weightbearing and skyline and lateral views of the left knee. AP weightbearing views demonstrate no varus or valgus angulation. Left total knee arthroplasty in good alignment with symmetric medial and lateral compartment polyethylene. Right knee demonstrates advanced medial compartment joint space narrowing with some osteoarthropathy. Degenerative beaking of the right tibial spines. Left total knee arthroplasty is now identified. Overall alignment is anatomic. There is a small amount of intra-articular fluid within the joint space. Joint spaces appear grossly maintained. There has been resurfacing of the patella. Enthesophyte seen along the superior patellar margin. Impression: 1. Status post left total knee arthroplasty in grossly normal anatomic alignment. 2. Enthesophyte superior patellar margin. 3. Moderate right knee osteoarthropathy medial compartment with significant medial compartment joint space narrowing. No significant abnormal angulation. Report Dictated on --- Final --- Dictating Physician: MD BEYER ANTHONY J Signed Date and Time: 08/03/2019 9:47 am Signed by: MD BEYER ANTHONY J Transcribed Date and Time: 08/03/2019 9:48 [place], [place] [facility], [facility] Incoming Radiology Results From [facility] - 08/03/2019 9:48 AM EDT Patient Name: IZABELA LONDON ---Diagnostic Radiology--- Exam Date/Time 08/03/2019 09:26:00 EDT Exam CR Knee Standing AP Bilateral Ordering Physician MD AMBROSIO KIEL JOHASEN Accession Number [id number] CPT4 Codes 78882 () Reason For Exam M17.12 PRIMARY OSTEOARTHRITIS OF LEFT KNEE Report Examination: AP weightbearing and left knee Clinical Indication: Postop Comparison: 07/05/2019 Findings: AP bilateral weightbearing and skyline and lateral views of the left knee. AP weightbearing views demonstrate no varus or valgus angulation. Left total knee arthroplasty in good alignment with symmetric medial and lateral compartment polyethylene. Right knee demonstrates advanced medial compartment joint space narrowing with some osteoarthropathy. Degenerative beaking of the right tibial spines. Left total knee arthroplasty is now identified. Overall alignment is anatomic. There is a small amount of intra-articular fluid within the joint space. Joint spaces appear grossly maintained. There has been resurfacing of the patella. Enthesophyte seen along the superior patellar margin. Impression: 1. Status post left total knee arthroplasty in grossly normal anatomic alignment. 2. Enthesophyte superior patellar margin. 3. Moderate right knee osteoarthropathy medial compartment with significant medial compartment joint space narrowing. No significant abnormal angulation. Report Dictated on --- Final --- Dictating Physician: MD BEYER ANTHONY J Signed Date and Time: 08/03/2019 9:47 am Signed by: MD BEYER ANTHONY J Transcribed Date and Time: 08/03/2019 9:48 [place], [place] Basic Metabolic Panelon 06-25 Anion gap [Moles/Vol] 9 mmol/L [place], [place] Calcium [Mass/Vol] 9.0 mg/dL 8.4 - 10. 4 mg/dL [place] Chloride [Moles/Vol] 106 mmol/L 98 - 107 mmol/L [place] CO2 [Moles/Vol] 23 mmol/L 22 - 30 mmol/L [place] Creatinine [Mass/Vol] 0.75 mg/dL 0.52 - 1.25 mg/dL [place] EGFR IF NonAfrican [place]er >60.0 >60 mL/min [place], [place] Comment on above: Source- MDRD equatio n with creatinine calibration to IDMS(NKDEP) eGFR not recommended for drug dose adjustment GFR/1.73 sq M predicted among blacks MDRD (S/P/Bld) [Vol rate/Area] mL/min/{1.73_m2} >60 mL/min [place], [place] Glucose [Mass/Vol] 153 mg/dL High 70 - 100 mg/dL [place], [place] Interpretation and review of laboratory results Abnormal [place], [place] Potassium [Moles/Vol] 4.5 mmol/L 3.5 - 5.1 mmol/L [place] Sodium [Moles/Vol] 138 mmol/L 135 - 145 mmol/L [place] Urea nitrogen [Mass/Vol] 22 mg/dL High 7 - 20 mg/dL [place] Test Performed by [facility], [address] [place], [place] [id number] [place] [address] Hemoglobin and hematocrit, b loodon 07-06-2019 Hematocrit (Bld) [Volume fraction] 44.1 % 40 - 52 % [place], [place] Hemoglobin (Bld) [Mass/Vol] 14.5 g/dL 13 - 18 g/dL [place] Test Performed by [facility], [address] [place], [place] [address] [place] XR KNEE LEFT (1-2 VIEWS)on 0 07-05-2019 [facility], [facility] Incoming Radiology Results From [facility] - 07/05/2019 9:57 AM EDT Patient Name: IZABELA LONDON ---Diagnostic Radiology--- Exam Date/Time 07/05/2019 09:35:00 EDT Exam CR Knee 1 or 2 Views Left Ordering Physician GILDA TREJO NICHOLAS A Accession Number [id number] CPT4 Codes 70586 () Reason For Exam s/p TKA Report Left knee: 07/05/2019. Clinical Information: Status post arthroplasty. Findings: 2 views of the left knee reveal the bones to be well mineralized. There is no evidence of fracture or dislocation. The joint spaces are maintained. There is air and fluid in the joint space from this recent surgical procedure. Report Dictated on --- Final --- Dictating Physician: MD ABDI RISA Signed Date and Time: 07/05/2019 9:56 am Signed by: MD ABDI RISA Transcribed Date and Time: 07/05/2019 9:57 [place] Patient Name: IZABELA LONDON ---Diagnostic Radiology--- Exam Date/Time 07/05/2019 09:35:00 EDT Exam CR Knee 1 or 2 Views Left Ordering Physician GILDA TREJO NICHOLAS A Accession Number [id number] CPT4 Codes 78815 () Reason For Exam s/p TKA Report Left knee: 07/05/2019. Clinical Information: Status post arthroplasty. Findings: 2 views of the left knee reveal the bones to be well mineralized. There is no evidence of fracture or dislocation. The joint spaces are maintained. There is air and fluid in the joint space from this recent surgical procedure. Report Dictated on --- Final --- Dictating Physician: MD ABDI RISA Signed Date and Time: 07/05/2019 9:56 am Signed by: MD ABDI RISA Transcribed Date and Time: 07/05/2019 9:57 [place] Vital Signs Date Time Vital Sign Value Performing Clinician Yusuf montiel 08-02-2025 13:06-0400 Body height 177.8 cm Kristen Urias MD Work Phone: [facility] [employer] [facility] [employer] 08-02-2025 13:06-0400 Body mass index (BMI) [Ratio] 29.63 kg/m2 Kristen Urias MD Work Phone: [facility] 08-02-2025 13:06-0400 Body temperature 97.9 [degF] Kristen Urias MD Work Phone: [facility] 08-02-2025 13:06-0400 Body weight 93.67 kg Kristen Urias MD Work Phone: [facility] 08-02-2025 13:06-0400 Diastolic blood pressure 93 mm[Hg] Kristen Urias MD Work Phone: [facility] 08-02-2025 13:06-0400 Heart rate 83 /min Kristen Urias MD Work Phone: [facility] 08-02-2025 13:06-0400 SaO2% (BldA) [Mass fraction] 95 % Kristen Urias MD Work Phone: [facility] 08-02-2025 13:06-0400 Systolic blood pressure 162 mm[Hg] Kristen Urias MD Work Phone: [facility] 08-02-2025 12:59-0400 Diastolic blood pressure 98 mm[Hg] Bed 6 [facility] 08-02-2025 12:59-0400 Heart rate 83 /min Bed 6 [facility] 08-02-2025 12:59-0400 Respiratory rate 16 /min Bed 6 [facility] 08-02-2025 12:59-0400 Systolic blood pressure 127 mm[Hg] Bed 6 [facility] 08-02-2025 10:59-0400 Body mass index (BMI) [Ratio] 29.63 kg/m2 Bed 6 [facility] 08-02-2025 10:59-0400 Body temperature 97 [degF] Bed 6 [facility] 08-02-2025 10:59-0400 Body weight 93.67 kg Bed 6 [facility] 07-03-2025 11:33-0400 Body height 177.8 cm Jeramie Ching MD Work Phone: [facility] 07-03-2025 11:33-0400 Body mass index (BMI) [Ratio] 29.33 kg/m2 Jeramie Ching MD Work Phone: [facility] 07-03-2025 11:33-0400 Body temperature 97.5 [degF] Jeramie Ching MD Work Phone: [employer] [facility] [employer] 07-03-2025 11:33-0400 Body weight 92.72 kg Jeramie Ching MD Work Phone: [employer] [facility] 07-03-2025 11:33-0400 Diastolic blood pressure 87 mm[Hg] Jeramie Ching MD Work Phone: [employer] [facility] 07-03-2025 11:33-0400 Heart rate 102 /min Jeramie Ching MD Work Phone: [employer] [facility] 07-03-2025 11:33-0400 Systolic blood pressure 126 mm[Hg] Jeramie Ching MD Work Phone: [employer] [facility] 06-04-2025 09:40-0400 Body height 177.8 cm Kristen Urias MD Work Phone: [employer] [facility] 06-04-2025 09:40-0400 Body mass index (BMI) [Ratio] 29.56 kg/m2 Kristen Urias MD Work Phone: [employer] 06-04-2025 09:40-0400 Body temperature 97.3 [degF] Kristen Urias MD Work Phone: [employer] [facility] 06-04-2025 09:40-0400 Body weight 93.44 kg Kristen Urias MD Work Phone: [employer] 06-04-2025 09:40-0400 Diastolic blood pressure 77 mm[Hg] Kristen Urias MD Work Phone: [employer] [facility] 06-04-2025 09:40-0400 Heart rate 79 /min Kristen Urias MD Work Phone: [employer] 06-04-2025 09:40-0400 SaO2% (BldA) [Mass fraction] 98 % Kristen Urias MD Work Phone: [employer] [facility] 06-04-2025 09:40-0400 Systolic blood pressure 138 mm[Hg] Kristen Urias MD Work Phone: [facility] 05-10-2025 12:39-0400 Diastolic blood pressure 71 mm[Hg] Chair 10 [facility] 05-10-2025 12:39-0400 Heart rate 51 /min Chair 10 [facility] 05-10-2025 12:39-0400 Respiratory rate 16 /min Chair 10 [facility] 05-10-2025 12:39-0400 Systolic blood pressure 149 mm[Hg] Chair 10 [facility] 05-10-2025 11:09-0400 Body temperature 97 [degF] Chair 10 [facility] 04-09-2025 10:07-0400 Body height 180.3 cm Kristen Urias MD Work Phone: [facility] [employer] 04-09-2025 10:07-0400 Body mass index (BMI) [Ratio] 27.67 kg/m2 Kristensocorro Urias MD Work Phone: [facility] 04-09-2025 10:07-0400 Body temperature 97.5 [degF] Kristensocorro Urias MD Work Phone: [facility] [employer] 04-09-2025 10:07-0400 Body weight 89.95 kg Kristensocorro Urias MD Work Phone: [facility] 04-09-2025 10:07-0400 Diastolic blood pressure 70 mm[Hg] Kristen Urias MD Work Phone: [facility] 04-09-2025 10:07-0400 Heart rate 58 /min Kristen Urias MD Work Phone: [facility] 04-09-2025 10:07-0400 SaO2% (BldA) [Mass fraction] 98 % Kristensocorro Urias MD Work Phone: [facility] 04-09-2025 10:07-0400 Systolic blood pressure 131 mm[Hg] Kristen Urias MD Work Phone: [facility] 03-05-2025 09:35-0400 Body height 180.3 cm Kristen Urias MD Work Phone: [facility] 03-05-2025 09:35-0400 Body mass index (BMI) [Ratio] 28.04 kg/m2 Kristen Urias MD Work Phone: [facility] 03-05-2025 09:35-0400 Body temperature 97.2 [degF] Kristen Urias MD Work Phone: [facility] 03-05-2025 09:35-0400 Body weight 91.13 kg Kristen Urias MD Work Phone: [facility] 03-05-2025 09:35-0400 Diastolic blood pressure 70 mm[Hg] Kristen Urias MD Work Phone: [facility] 03-05-2025 09:35-0400 Heart rate 65 /min Kristen Urias MD Work Phone: [facility] 03-05-2025 09:35-0400 SaO2% (BldA) [Mass fraction] 98 % Kristen Urias MD Work Phone: [facility] 03-05-2025 09:35-0400 Systolic blood pressure 138 mm[Hg] Kristen Urias MD Work Phone: [facility] 02-13-2025 12:19-0400 Diastolic blood pressure 61 mm[Hg] Chair 23 [facility] 02-13-2025 12:19-0400 Heart rate 69 /min Chair 23 [facility] 02-13-2025 12:19-0400 Respiratory rate 16 /min Chair 23 [facility] 02-13-2025 12:19-0400 Systolic blood pressure 132 mm[Hg] Chair 23 [facility] 02-13-2025 11:03-0400 Body temperature 96.91 [degF] Chair 23 [facility] 02-13-2025 10:17-0400 Body height 180.3 cm Kristen Urias MD Work Phone: [facility] 02-13-2025 10:17-0400 Body mass index (BMI) [Ratio] 27.49 kg/m2 Kristen Urias MD Work Phone: [facility] 02-13-2025 10:17-0400 Body temperature 97.2 [degF] Kristen Urais MD Work Phone: [facility] 02-13-2025 10:17-0400 Body weight 89.36 kg Kristen Urias MD Work Phone: [facility] 02-13-2025 10:17-0400 Diastolic blood pressure 67 mm[Hg] Kristen Urias MD Work Phone: [facility] 02-13-2025 10:17-0400 Heart rate 62 /min Kristen Urias MD Work Phone: [facility] 02-13-2025 10:17-0400 SaO2% (BldA) [Mass fraction] 97 % Kristen Urias MD Work Phone: [facility] 02-13-2025 10:17-0400 Systolic blood pressure 127 mm[Hg] Kristen Urias MD Work Phone: [facility] 02-12-2025 09:27-0400 Body height 180.3 cm Jeramie Ching MD Work Phone: [facility] 02-12-2025 09:27-0400 Body mass index (BMI) [Ratio] 27.35 kg/m2 Jeramie Ching MD Work Phone: [facility] 02-12-2025 09:27-0400 Body temperature 97.39 [degF] Jeramie Ching MD Work Phone: [facility] [facility] [place] [employer] [facility] [employer] 02-12-2025 09:27-0400 Body weight 88.91 kg Jeramie Ching MD Work Phone: [facility] [place] [employer] [facility] [employer] 02-12-2025 09:27-0400 Diastolic blood pressure 70 mm[Hg] Jeramie Ching MD Work Phone: [facility] [place] [facility] [employer] 02-12-2025 09:27-0400 Heart rate 64 /min Jeramie Ching MD Work Phone: [facility] [place] [facility] [employer] 02-12-2025 09:27-0400 SaO2% (BldA) [Mass fraction] 95 % Jeramie Ching MD Work Phone: [facility] [place] [facility] 02-12-2025 09:27-0400 Systolic blood pressure 130 mm[Hg] Jeramie Ching MD Work Phone: [employer] [facility] [employer] 11-21-2024 12:39-0500 Diastolic blood pressure 54 mm[Hg] Chair 14 [employer] [facility] 11-21-2024 12:39-0500 Heart rate 60 /min Chair 14 [employer] [facility] 11-21-2024 12:39-0500 Systolic blood pressure 127 mm[Hg] Chair 14 [employer] [facility] 11-21-2024 10:21-0500 Body height 180.3 cm Kristen Urias MD Work Phone: [employer] [facility] 11-21-2024 10:21-0500 Body mass index (BMI) [Ratio] 27.76 kg/m2 Kristen Urias MD Work Phone: [employer] 11-21-2024 10:21-0500 Body temperature 97.2 [degF] Kristen Urias MD Work Phone: [employer] 11-21-2024 10:21-0500 Body weight 90.22 kg Kristen Urias MD Work Phone: [employer] [facility] 11-21-2024 10:21-0500 Diastolic blood pressure 70 mm[Hg] Kristen Urias MD Work Phone: [employer] 11-21-2024 10:21-0500 Heart rate 63 /min Kristen Urias MD Work Phone: [employer] 11-21-2024 10:21-0500 SaO2% (BldA) [Mass fraction] 98 % Kristen Urias MD Work Phone: [employer] [facility] 11-21-2024 10:21-0500 Systolic blood pressure 130 mm[Hg] Kristen Urias MD Work Phone: [employer] 10-03-2024 08:47-0500 Diastolic blood pressure 60 mm[Hg] Jeramie Ching MD Work Phone: [employer] [facility] 10-03-2024 08:47-0500 Systolic blood pressure 120 mm[Hg] Jeramie Ching MD Work Phone: [employer] [facility] 10-03-2024 08:40-0500 Body height 180.3 cm Jeramie Ching MD Work Phone: [facility] [place] [employer] [facility] [employer] 10-03-2024 08:40-0500 Body mass index (BMI) [Ratio] 27.53 kg/m2 Jeramie Ching MD Work Phone: [facility] [place] [facility] 10-03-2024 08:40-0500 Body temperature 97 [degF] Jeramie Ching MD Work Phone: [facility] [place] [facility] [employer] 10-03-2024 08:40-0500 Body weight 89.5 kg Jeramie Ching MD Work Phone: [facility] [place] [facility] 10-03-2024 08:40-0500 Heart rate 58 /min Jeramie Ching MD Work Phone: [facility] [place] [facility] 10-03-2024 08:40-0500 SaO2% (BldA) [Mass fraction] 96 % Jeramie Ching MD Work Phone: [facility] [place] [facility] 08-29-2024 12:25-0500 Diastolic blood pressure 69 mm[Hg] Bed 7 [facility] 08-29-2024 12:25-0500 Heart rate 65 /min Bed 7 [facility] 08-29-2024 12:25-0500 Respiratory rate 16 /min Bed 7 [facility] [place] [facility] 08-29-2024 12:25-0500 Systolic blood pressure 145 mm[Hg] Bed 7 [facility] 08-29-2024 11:14-0500 Body height 180.3 cm Kristen Urias MD Work Phone: [facility] [place] [facility] [employer] 08-29-2024 11:14-0500 Body mass index (BMI) [Ratio] 27.21 kg/m2 Kristen Urias MD Work Phone: [facility] [place] [facility] [employer] 08-29-2024 11:14-0500 Body temperature 97.2 [degF] Kristen Urias MD Work Phone: [facility] [place] [facility] [employer] 08-29-2024 11:14-0500 Body weight 88.45 kg Kristen Urias MD Work Phone: [facility] [place] [facility] [employer] 08-29-2024 11:14-0500 Diastolic blood pressure 70 mm[Hg] Kristen Urias MD Work Phone: [facility] [place] [facility] 08-29-2024 11:14-0500 Heart rate 57 /min Kristen Urias MD Work Phone: [facility] [place] [facility] 08-29-2024 11:14-0500 SaO2% (BldA) [Mass fraction] 96 % Kristen Urias MD Work Phone: [facility] [place] [facility] 08-29-2024 11:14-0500 Systolic blood pressure 124 mm[Hg] Kristen Urias MD Work Phone: [facility] [place] [facility] 07-20-2024 14:52-0400 Body mass index (BMI) [Ratio] 27.5 kg/m2 Jeramie Ching MD Work Phone: [facility] [place] [facility] 07-20-2024 14:52-0400 Body weight 89.45 kg Jeramie Ching MD Work Phone: [facility] [place] [facility] 07-20-2024 14:52-0400 Diastolic blood pressure 70 mm[Hg] Jeramie Ching MD Work Phone: [facility] [place] [facility] 07-20-2024 14:52-0400 Systolic blood pressure 130 mm[Hg] Jeramie Ching MD Work Phone: [facility] [place] [facility] [employer] 06-24-2024 07:53-0400 Body temperature 98.1 [degF] Maria Antonia Baker MD Work Phone: [facility] [place] [facility] 06-24-2024 07:53-0400 Diastolic blood pressure 59 mm[Hg] Maria Antonia Baker MD Work Phone: [facility] [place] [facility] 06-24-2024 07:53-0400 Heart rate 65 /min Maria Antonia Baker MD Work Phone: [facility] [place] [facility] [employer] 06-24-2024 07:53-0400 Respiratory rate 16 /min Maria Antonia Baker MD Work Phone: [facility] [place] [facility] [employer] 06-24-2024 07:53-0400 SaO2% (BldA) [Mass fraction] 96 % Maria Antonia Baker MD Work Phone: [facility] [place] [facility] 06-24-2024 07:53-0400 Systolic blood pressure 117 mm[Hg] Maria Antonia Baker MD Work Phone: [facility] [place] [facility] 06-21-2024 15:48-0400 Body height 180.3 cm Maria Antonia Baker MD Work Phone: [facility] [place] [facility] 06-06-2024 14:10-0400 Diastolic blood pressure 69 mm[Hg] Chair 14 [facility] [place] [facility] 06-06-2024 14:10-0400 Heart rate 63 /min Chair 14 [facility] [place] [facility] 06-06-2024 14:10-0400 Respiratory rate 16 /min Chair 14 [facility] [place] [facility] 06-06-2024 14:10-0400 Systolic blood pressure 144 mm[Hg] Chair 14 [facility] [place] [facility] 06-06-2024 12:39-0400 Body height 180.3 cm Kristen Urias MD Work Phone: [facility] [place] [facility] 06-06-2024 12:39-0400 Body mass index (BMI) [Ratio] 28.19 kg/m2 Kristen Urias MD Work Phone: [employer] [facility] 06-06-2024 12:39-0400 Body temperature 97.2 [degF] Kristen Urias MD Work Phone: [employer] [facility] 06-06-2024 12:39-0400 Body weight 91.63 kg Kristen Urias MD Work Phone: [employer] [facility] 06-06-2024 12:39-0400 Diastolic blood pressure 68 mm[Hg] Kristen Urias MD Work Phone: [employer] [facility] 06-06-2024 12:39-0400 Heart rate 65 /min Kristen Urias MD Work Phone: [employer] [facility] 06-06-2024 12:39-0400 SaO2% (BldA) [Mass fraction] 100 % Kristen Urias MD Work Phone: [employer] [facility] 06-06-2024 12:39-0400 Systolic blood pressure 136 mm[Hg] Kristen Urias MD Work Phone: [facility] [place] [facility] 05-31-2024 10:33-0400 Body height 180.3 cm Abigail Olsen [employer] Work Phone: [facility] [place] [facility] 05-31-2024 10:33-0400 Diastolic blood pressure 57 mm[Hg] Abigail Olsen [employer] Work Phone: [facility] [place] [facility] 05-31-2024 10:33-0400 Heart rate 72 /min Abigail Olsen [employer] Work Phone: [facility] [place] [facility] 05-31-2024 10:33-0400 SaO2% (BldA) [Mass fraction] 90 % Abigail Olsen [employer] Work Phone: [facility] [place] [facility] 05-31-2024 10:33-0400 Systolic blood pressure 94 mm[Hg] Abigail Olsen [employer] Work Phone: [facility] [place] [facility] 03-07-2024 11:34-0400 Diastolic blood pressure 64 mm[Hg] Chair 19 [facility] [place] [facility] 03-07-2024 11:34-0400 Heart rate 56 /min Chair 19 [facility] [place] [facility] 03-07-2024 11:34-0400 Systolic blood pressure 136 mm[Hg] Chair 19 [facility] [place] [facility] 03-07-2024 09:58-0400 Body height 180.3 cm Kristen Urias MD Work Phone: [facility] [place] [facility] 03-07-2024 09:58-0400 Body mass index (BMI) [Ratio] 28.28 kg/m2 Kristen Urias MD Work Phone: [facility] [place] [facility] 03-07-2024 09:58-0400 Body temperature 97.2 [degF] Kristen Urias MD Work Phone: [employer] [facility] 03-07-2024 09:58-0400 Body weight 91.99 kg Kritsen Urias MD Work Phone: [facility] [place] [facility] 03-07-2024 09:58-0400 Diastolic blood pressure 80 mm[Hg] Kristen Urias MD Work Phone: [facility] [place] [facility] 03-07-2024 09:58-0400 Heart rate 84 /min Kristen Urias MD Work Phone: [facility] [place] [facility] 03-07-2024 09:58-0400 SaO2% (BldA) [Mass fraction] 95 % Kristen Urias MD Work Phone: [facility] [place] [facility] 03-07-2024 09:58-0400 Systolic blood pressure 158 mm[Hg] Kristen Urias MD Work Phone: [facility] [place] [facility] 02-07-2024 09:59-0400 Diastolic blood pressure 64 mm[Hg] Jeramie Ching MD Work Phone: [facility] [place] [facility] 02-07-2024 09:59-0400 Systolic blood pressure 112 mm[Hg] Jeramie Ching MD Work Phone: [facility] [place] [facility] 02-07-2024 09:49-0400 Body height 180.3 cm Jeramie Ching MD Work Phone: [facility] [place] [facility] 02-07-2024 09:49-0400 Body mass index (BMI) [Ratio] 28.59 kg/m2 Jeramie Ching MD Work Phone: [facility] [place] [facility] 02-07-2024 09:49-0400 Body temperature 97.2 [degF] Jeramie Chign MD Work Phone: [facility] [place] [facility] 02-07-2024 09:49-0400 Body weight 92.99 kg Jeramie Ching MD Work Phone: [facility] [place] [facility] 02-07-2024 09:49-0400 Heart rate 69 /min Jeramie Ching MD Work Phone: [facility] [place] [facility] 02-07-2024 09:49-0400 SaO2% (BldA) [Mass fraction] 97 % Jeramie Ching MD Work Phone: [facility] [place] [facility] 12-22-2023 08:46-0500 Body height 180.3 cm Jeramie Ching MD Work Phone: [facility] [place] [facility] 12-22-2023 08:46-0500 Body mass index (BMI) [Ratio] 29.01 kg/m2 Jeramie Ching MD Work Phone: [facility] [place] [facility] 12-22-2023 08:46-0500 Body temperature 97.9 [degF] Jeramie Ching MD Work Phone: [facility] [place] [facility] 12-22-2023 08:46-0500 Body weight 94.35 kg Jeramie Ching MD Work Phone: [facility] [place] [facility] 12-22-2023 08:46-0500 Diastolic blood pressure 78 mm[Hg] Jeramie Ching MD Work Phone: [facility] [place] [facility] 12-22-2023 08:46-0500 Heart rate 58 /min Jeramie Ching MD Work Phone: [facility] [place] [facility] 12-22-2023 08:46-0500 SaO2% (BldA) [Mass fraction] 98 % Jeramie Ching MD Work Phone: [facility] [place] [facility] 12-22-2023 08:46-0500 Systolic blood pressure 140 mm[Hg] Jeramie Ching MD Work Phone: [facility] [place] [facility] 12-14-2023 12:24-0500 Diastolic blood pressure 63 mm[Hg] Chair 24 [facility] [place] [facility] 12-14-2023 12:24-0500 Heart rate 59 /min Chair 24 [facility] [place] [facility] 12-14-2023 12:24-0500 Systolic blood pressure 149 mm[Hg] Chair 24 [facility] [place] [facility] 12-14-2023 11:05-0500 Body mass index (BMI) [Ratio] 29.11 kg/m2 Chair 24 [facility] [place] [facility] 12-14-2023 11:05-0500 Body temperature 97.59 [degF] Chair 24 [facility] [place] [facility] 12-14-2023 11:05-0500 Body weight 94.67 kg Chair 24 [facility] [place] [facility] 12-14-2023 11:05-0500 Respiratory rate 20 /min Chair 24 [facility] [place] [facility] 12-07-2023 09:03-0500 Body height 180.3 cm Kristen Urias MD Work Phone: [facility] [place] [facility] 12-07-2023 09:03-0500 Body mass index (BMI) [Ratio] 29.25 kg/m2 Kristen Urias MD Work Phone: [facility] [place] [facility] 12-07-2023 09:03-0500 Body temperature 97.7 [degF] Kristen Urias MD Work Phone: [facility] [place] [facility] 12-07-2023 09:03-0500 Body weight 95.12 kg Kristen Urias MD Work Phone: [facility] [place] [facility] 12-07-2023 09:03-0500 Diastolic blood pressure 82 mm[Hg] Kristen Urias MD Work Phone: [facility] [place] [facility] 12-07-2023 09:03-0500 Heart rate 107 /min Kristen Urias MD Work Phone: [facility] [place] [facility] 12-07-2023 09:03-0500 SaO2% (BldA) [Mass fraction] 95 % Kristen Urias MD Work Phone: [facility] [place] [facility] 12-07-2023 09:03-0500 Systolic blood pressure 145 mm[Hg] Kristen Urias MD Work Phone: [facility] [place] [facility] 09-21-2023 11:05-0500 Body mass index (BMI) [Ratio] 29.05 kg/m2 Chair 18 [facility] [place] [facility] 09-21-2023 11:05-0500 Body temperature 97 [degF] Chair 18 [facility] [place] [facility] 09-21-2023 11:05-0500 Body weight 94.48 kg Chair 18 [facility] [place] [facility] 09-21-2023 11:05-0500 Diastolic blood pressure 72 mm[Hg] Chair 18 [facility] [place] [facility] 09-21-2023 11:05-0500 Heart rate 63 /min Chair 18 [facility] [place] [facility] 09-21-2023 11:05-0500 Respiratory rate 18 /min Chair 18 [facility] [place] [facility] 09-21-2023 11:05-0500 Systolic blood pressure 146 mm[Hg] Chair 18 [facility] [place] [facility] 09-07-2023 09:06-0500 Body height 180.3 cm Kristen Urias MD Work Phone: [facility] [place] [facility] 09-07-2023 09:06-0500 Body mass index (BMI) [Ratio] 29.22 kg/m2 Kristen Urias MD Work Phone: [employer] [facility] 09-07-2023 09:06-0500 Body temperature 97.3 [degF] Kristen Urias MD Work Phone: [employer] 09-07-2023 09:06-0500 Body weight 95.03 kg Kristen Urias MD Work Phone: [employer] [facility] 09-07-2023 09:06-0500 Diastolic blood pressure 80 mm[Hg] Kristen Urias MD Work Phone: [employer] [facility] 09-07-2023 09:06-0500 Heart rate 62 /min Kristen Urias MD Work Phone: [employer] [facility] 09-07-2023 09:06-0500 SaO2% (BldA) [Mass fraction] 100 % Kristen Urias MD Work Phone: [employer] [facility] 09-07-2023 09:06-0500 Systolic blood pressure 150 mm[Hg] Kristen Urias MD Work Phone: [employer] [facility] 06-29-2023 09:36-0400 Body height 180.3 cm Kristen Urias MD Work Phone: [employer] [facility] 06-29-2023 09:36-0400 Body mass index (BMI) [Ratio] 29.61 kg/m2 Kristen Urias MD Work Phone: [employer] [facility] 06-29-2023 09:36-0400 Body temperature 97.2 [degF] Kristen Urias MD Work Phone: [employer] [facility] 06-29-2023 09:36-0400 Body weight 96.3 kg Kristen Urias MD Work Phone: [employer] [facility] 06-29-2023 09:36-0400 Diastolic blood pressure 76 mm[Hg] Kristen Urias MD Work Phone: [employer] [facility] 06-29-2023 09:36-0400 Heart rate 63 /min Kristen Urias MD Work Phone: [employer] [facility] 06-29-2023 09:36-0400 SaO2% (BldA) [Mass fraction] 96 % Kristen Urias MD Work Phone: [facility] [place] [facility] 06-29-2023 09:36-0400 Systolic blood pressure 158 mm[Hg] Kristen Urias MD Work Phone: [employer] [facility] 03-25-2023 12:29-0400 Diastolic blood pressure 58 mm[Hg] Chair 18 [facility] [place] [facility] 03-25-2023 12:29-0400 Heart rate 63 /min Chair 18 [facility] [place] [facility] 03-25-2023 12:29-0400 Respiratory rate 18 /min Chair 18 [facility] [place] [facility] 03-25-2023 12:29-0400 Systolic blood pressure 126 mm[Hg] Chair 18 [facility] [place] [facility] 03-25-2023 10:47-0400 Body temperature 97.59 [degF] Chair 18 [employer] [facility] 03-25-2023 09:53-0400 Body height 180.3 cm Kristen Urias MD Work Phone: [employer] [facility] 03-25-2023 09:53-0400 Body mass index (BMI) [Ratio] 28.73 kg/m2 Kristen Urias MD Work Phone: [employer] [facility] 03-25-2023 09:53-0400 Body temperature 97.39 [degF] Kristen Urias MD Work Phone: [employer] 03-25-2023 09:53-0400 Body weight 93.44 kg Kristen Urias MD Work Phone: [employer] [facility] 03-25-2023 09:53-0400 Diastolic blood pressure 77 mm[Hg] Kristen Urias MD Work Phone: [employer] [facility] 03-25-2023 09:53-0400 Heart rate 69 /min Kristen Urias MD Work Phone: [employer] [facility] 03-25-2023 09:53-0400 SaO2% (BldA) [Mass fraction] 95 % Kristen Urias MD Work Phone: [employer] [facility] 03-25-2023 09:53-0400 Systolic blood pressure 161 mm[Hg] Kristen Urias MD Work Phone: [employer] [facility] 02-03-2023 07:39-0400 Body height 180.3 cm Jeramie Ching MD Work Phone: [facility] [place] [facility] 02-03-2023 07:39-0400 Body mass index (BMI) [Ratio] 29.74 kg/m2 Jeramie Ching MD Work Phone: [facility] [place] [facility] 02-03-2023 07:39-0400 Body weight 96.71 kg Jeramie Ching MD Work Phone: [facility] [place] [facility] 02-03-2023 07:39-0400 Diastolic blood pressure 64 mm[Hg] Jeramie Ching MD Work Phone: [facility] [place] [facility] 02-03-2023 07:39-0400 Heart rate 60 /min Jeramie Ching MD Work Phone: [facility] [place] [facility] 02-03-2023 07:39-0400 SaO2% (BldA) [Mass fraction] 97 % Jeramie Ching MD Work Phone: [facility] [place] [facility] 02-03-2023 07:39-0400 Systolic blood pressure 122 mm[Hg] Jeramie Ching MD Work Phone: [facility] [place] [facility] 12-23-2022 11:32-0500 Diastolic blood pressure 64 mm[Hg] Chair 11 [facility] [place] [facility] 12-23-2022 11:32-0500 Heart rate 62 /min Chair 11 [facility] [place] [facility] 12-23-2022 11:32-0500 Systolic blood pressure 134 mm[Hg] Chair 11 [facility] [place] [facility] 12-23-2022 10:34-0500 Body temperature 97.11 [degF] Chair 11 [facility] [facility] [place] [employer] 12-23-2022 10:34-0500 Respiratory rate 20 /min Chair 11 [facility] [place] [employer] 12-23-2022 09:51-0500 Body height 180.3 cm Kristen Urias MD Work Phone: [facility] [place] [employer] 12-23-2022 09:51-0500 Body mass index (BMI) [Ratio] 28.31 kg/m2 Kristen Urias MD Work Phone: [facility] [place] [employer] 12-23-2022 09:51-0500 Body temperature 97.9 [degF] Kristen Urias MD Work Phone: [facility] [place] [employer] 12-23-2022 09:51-0500 Body weight 92.08 kg Kristen Urias MD Work Phone: [facility] [place] [employer] 12-23-2022 09:51-0500 Diastolic blood pressure 76 mm[Hg] Kristen Urias MD Work Phone: [facility] [place] [employer] 12-23-2022 09:51-0500 Heart rate 64 /min Kristen Urias MD Work Phone: [facility] [place] [employer] 12-23-2022 09:51-0500 SaO2% (BldA) [Mass fraction] 98 % Kristen Urias MD Work Phone: [facility] [place] [employer] 12-23-2022 09:51-0500 Systolic blood pressure 126 mm[Hg] Kristen Urias MD Work Phone: [facility] [place] [employer] 09-24-2022 13:00-0500 Diastolic blood pressure 63 mm[Hg] Bed 7 [facility] [place] [employer] 09-24-2022 13:00-0500 Heart rate 66 /min Bed 7 [facility] 09-24-2022 13:00-0500 Respiratory rate 16 /min Bed 7 [facility] 09-24-2022 13:00-0500 Systolic blood pressure 123 mm[Hg] Bed 7 [facility] 09-24-2022 10:40-0500 Body height 180.3 cm Bed 7 [facility] 09-24-2022 10:40-0500 Body mass index (BMI) [Ratio] 28.03 kg/m2 Bed 7 [facility] [place] [employer] 09-24-2022 10:40-0500 Body temperature 98.01 [degF] Bed 7 [facility] 09-24-2022 10:40-0500 Body weight 91.17 kg Bed 7 [facility] [place] [employer] 06-25-2022 12:32-0400 Diastolic blood pressure 58 mm[Hg] Kristen Urias MD Work Phone: [facility] 06-25-2022 12:32-0400 Heart rate 59 /min Kristen Urias MD Work Phone: [facility] 06-25-2022 12:32-0400 Respiratory rate 18 /min Kristen Urias MD Work Phone: [facility] 06-25-2022 12:32-0400 Systolic blood pressure 124 mm[Hg] Kristen Urias MD Work Phone: [facility] 06-25-2022 11:18-0400 Body mass index (BMI) [Ratio] 28.95 kg/m2 Kristen Urias MD Work Phone: [facility] 06-25-2022 11:18-0400 Body temperature 97.81 [degF] Kristen Urias MD Work Phone: [facility] 06-25-2022 11:18-0400 Body weight 94.17 kg Kristen Urias MD Work Phone: [facility] 04-02-2022 13:41-0400 Diastolic blood pressure 67 mm[Hg] Kristen Urias MD Work Phone: [facility] 04-02-2022 13:41-0400 Heart rate 55 /min Kristen Urias MD Work Phone: [facility] 04-02-2022 13:41-0400 Respiratory rate 18 /min Kristen Urias MD Work Phone: [facility] 04-02-2022 13:41-0400 Systolic blood pressure 134 mm[Hg] Kristen Urias MD Work Phone: [facility] 04-02-2022 12:44-0400 Body mass index (BMI) [Ratio] 29.71 kg/m2 Kristen Urias MD Work Phone: [facility] 04-02-2022 12:44-0400 Body temperature 97 [degF] Kristen Urias MD Work Phone: [facility] 04-02-2022 12:44-0400 Body weight 96.62 kg Kristen Urias MD Work Phone: [facility] 01-08-2022 14:38-0400 Diastolic blood pressure 65 mm[Hg] Kristen Urias MD Work Phone: [facility] 01-08-2022 14:38-0400 Heart rate 64 /min Kristen Urias MD Work Phone: [facility] 01-08-2022 14:38-0400 Systolic blood pressure 125 mm[Hg] Kristen Adonay COY Work Phone: [facility] 01-08-2022 13:43-0400 Body mass index (BMI) [Ratio] 30.32 kg/m2 Kristen Urias MD Work Phone: [facility] 01-08-2022 13:43-0400 Body temperature 97 [degF] Kristen Adonay COY Work Phone: [facility] 01-08-2022 13:43-0400 Body weight 98.61 kg Kristen Adonay COY Work Phone: [facility] 01-08-2022 13:43-0400 Respiratory rate 18 /min Kristen Adonay COY Work Phone: [facility] 07-17-2021 15:35-0400 Diastolic blood pressure 66 mm[Hg] Kristen Adonay COY Work Phone: [facility] Work Phone: 07-17-2021 15:35-0400 Heart rate 65 /min Kristensocorro Urias MD Work Phone: [facility] Work Phone: 07-17-2021 15:35-0400 Respiratory rate 16 /min Kristensocorro Urias MD Work Phone: [facility] Work Phone: 07-17-2021 15:35-0400 Systolic blood pressure 121 mm[Hg] Kristen Adonay COY Work Phone: [facility] Work Phone: 07-17-2021 14:49-0400 Body height 180.3 cm Kristen Urias MD Work Phone: [facility] Work Phone: 07-17-2021 14:49-0400 Body mass index (BMI) [Ratio] 30.59 kg/m2 Kristen Urias MD Work Phone: [facility] Work Phone: 07-17-2021 14:49-0400 Body temperature 97.59 [degF] Kristen Adonay MD Work Phone: [facility] Work Phone: 07-17-2021 14:49-0400 Body weight 99.47 kg Kristen Urias MD Work Phone: [facility] Work Phone: 04-24-2021 14:50-0400 Body mass index (BMI) [Ratio] 32.66 kg/m2 Kristen Urias MD Work Phone: [facility] Work Phone: 04-24-2021 14:50-0400 Body temperature 98.49 [degF] Kristen Urias MD Work Phone: [facility] Work Phone: 04-24-2021 14:50-0400 Body weight 106.23 kg Kristen Urias MD Work Phone: [facility] Work Phone: 04-24-2021 14:50-0400 Diastolic blood pressure 73 mm[Hg] Kristen Urias MD Work Phone: [facility] Work Phone: 04-24-2021 14:50-0400 Heart rate 72 /min Kristen Urias MD Work Phone: [facility] Work Phone: 04-24-2021 14:50-0400 Respiratory rate 18 /min Kristen Urias MD Work Phone: [facility] Work Phone: 04-24-2021 14:50-0400 Systolic blood pressure 147 mm[Hg] Kristen Urias MD Work Phone: [facility] Work Phone: 12-30-2020 15:05-0500 BP Diastolic 71 mm[Hg] Jeramie Sarmiento [employer] Work Phone: 12-30-2020 15:05-0500 BP Systolic 130 mm[Hg] Jeramie Sarmiento [employer] Work Phone: 12-30-2020 15:05-0500 Pulse (Heart Rate) 70 /min Jeramie Sarmiento [employer] Phone: 12-30-2020 14:33-0500 BMI (Body Mass Index) 33.45 kg/m2 Jeramie CHO Work Phone: 12-30-2020 14:33-0500 Body Temperature 98.1 [degF] Jeramie Sarmiento [employer] Work Phone: 12-30-2020 14:33-0500 Body weight 99.79 kg Jeramie Sarmiento [employer] Work Phone: 12-30-2020 14:33-0500 Respiratory Rate 18 /min Jeramie Sarmiento [employer] Phone: 07-06-2019 13:19-0400 Body Temperature 97.81 [degF] [facility] [place] 07-06-2019 13:19-0400 BP Diastolic 60 mm[Hg] [facility] [place] 07-06-2019 13:19-0400 BP Systolic 115 mm[Hg] [facility] 07-06-2019 13:19-0400 Pulse (Heart Rate) 51 /min [facility] 07-06-2019 13:19-0400 Pulse Oximetry 94 % [facility] [place] 07-06-2019 13:19-0400 Respiratory Rate 20 /min [facility] [place] 07-05-2019 06:05-0400 BMI (Body Mass Index) 32.5 kg/m2 [facility] 07-05-2019 06:05-0400 Body weight 105.69 kg [facility] [place] 07-05-2019 06:05-0400 Height 180.3 cm [facility] [place] 06-28-2019 09:58-0400 BMI (Body Mass Index) 32.64 kg/m2 [facility] 06-28-2019 09:58-0400 Body Temperature 98.4 [degF] [facility] [place] 06-28-2019 09:58-0400 Body weight 106.14 [facility] [place] 06-28-2019 09:58-0400 BP Diastolic 75 mm[Hg] [facility] 09:58-0400 BP Systolic 136 mm[Hg] [facility] 06-28-2019 09:58-0400 Height 180.3 [facility] [place] 06-28-2019 09:58-0400 Pulse (Heart Rate) 66 /min [facility] [place] 06-28-2019 09:58-0400 Pulse Oximetry 96 % [facility] [place] 06-28-2019 09:58-0400 Respiratory Rate 16 /min [place] [facility] [place] Encounters Encounter Date Encounter Type Care Provider Facility Start: 08-02-2025 End: 08-02-2025 Office outpatient visit 25 minutes [facility] Comment on above: Malignant neoplasm metastatic to bone (H CC) (Primary Dx) Start: 08-02-2025 End: 08-02-2025 ambulatory Jose Still MD Work Phone: [facility] Comment on above: Malignant neoplasm of prostate (HCC) (Pr imary Dx); Malignant neoplasm metastatic to bone (HCC); Prostate cancer (HCC) Start: 07-27-2025 End: 07-27-2025 Orders Only Krist[facility] MD [facility] Comment on above: Malignant neoplasm metastatic to bone (H CC) (Primary Dx); Prostate cancer (HCC) Start: 07-03-2025 End: 07-03-2025 Office outpatient visit 15 minutes Jeramie Ching MD Work Phone: [facility] Comment on above: Ingrown nail of great toe of right foot (Primary Dx) Start: 07-03-2025 End: 07-03-2025 ambulatory JERAMIE CHING [facility] Start: 07-02-2025 End: 07-03-2025 ambulatory Bernadette Cheng RN [facility] [place] Clinical Communication Start: 07-02-2025 End: 07-03-2025 Patient encounter procedure Bernadette Cheng RN [facility] [place] [facility] al Communication Start: 06-28-2025 End: 06-28-2025 ambulatory Corinne Cha [facility] Comment on above: Malignant neoplasm metastatic to bone (H CC) Start: 06-04-2025 End: 06-04-2025 Office outpatient visit 25 minutes Kristen Urias MD Work Phone: [facility] Comment on above: Malignant neoplasm metastatic to bone (H CC) (Primary Dx) Start: 06-04-2025 End: 06-04-2025 ambulatory KRISTEN [facility] Start: 05-10-2025 End: 05-10-2025 ambulatory Jose Still MD Work Phone: [facility] Comment on above: Prostate cancer (HCC) (Primary Dx); Malignant neoplasm metastatic to bone (HCC) Start: 05-09-2025 End: 07-13-2025 [facility]ulatory [facility] Start: 05-09-2025 End: 07-13-2025 Patient encounter procedure Denise [facility] Start: 05-04-2025 End: 05-04-2025 Orders Only Kristen Urias MD Work Phone: [facility] Comment on above: Malignant neoplasm metastatic to bone (H CC) (Primary Dx); Prostate cancer (HCC) Start: 04-09-2025 End: 04-09-2025 Office outpatient visit 25 minutes Kristen Urias MD Work Phone: [facility] Comment on above: Malignant neoplasm metastatic to bone (H CC) (Primary Dx); Prostate cancer (HCC) Start: 04-09-2025 End: 04-09-2025 ambulatory KRISTEN [facility] Start: 03-16-2025 End: 03-16-2025 Telephone encounter Bhanu Diaz PharmTao [facility] Start: 03-06-2025 End: 03-06-2025 Telephone encounter Bhanu Emily PharmD [facility] Start: 03-05-2025 End: 03-05-2025 Office outpatient visit 40 minutes Kristen Urias MD Work Phone: [facility] Comment on above: Malignant neoplasm metastatic to bone (H CC) (Primary Dx) Start: 03-05-2025 End: 03-05-2025 Refill Kristen Urias MD Work Phone: [facility] Comment on above: Malignant neoplasm metastatic to bone (H CC) (Primary Dx) Start: 02-22-2025 End: 02-22-2025 Subsequent hospital visit by physician Kristen Urias MD Work Phone: [facility] Comment on above: Prostate cancer (HCC); Malignant neoplasm metastatic to bone (HCC) Start: 02-22-2025 End: 02-22-2025 ambulatory KRISTEN [facility] Start: 02-13-2025 End: 02-13-2025 Office outpatient visit 25 minutes Kristen Urias MD Work Phone: [facility] Comment on above: Prostate cancer (HCC) (Primary Dx); Malignant neoplasm metastatic to bone (HCC) Start: 02-13-2025 End: 02-13-2025 ambulatory Kristen Urias MD Work Phone: [facility] Comment on above: Prostate cancer (HCC) (Primary Dx); Malignant neoplasm metastatic to bone (HCC) Start: 02-12-2025 End: 02-12-2025 ambulatory [facility] Start: 02-12-2025 End: 02-12-2025 Encounter for general adult medical examination without abnormal findings [facility] Start: 02-12-2025 End: 02-12-2025 Assay of hemosiderin, quant Jeramie Ching MD Work Phone: [facility] Work Phone: Start: 02-12-2025 End: 02-12-2025 Patient encounter procedure Jeramie Ching MD Work Phone: [facility] Comment on above: Routine general medical examination at [facility] (Primary Dx); Weakness of both lower extremities; Drug-induced polyneuropathy (HCC); History of heart artery stent; 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; Essential hypertension; Prostate cancer (HCC) Start: 02-09-2025 End: 02-09-2025 Telephone encounter Jeramie Ching MD Work Phone: [facility] Start: 02-07-2025 End: 02-07-2025 Orders Only Kristen Urias MD Work Phone: [facility] Comment on above: Malignant neoplasm metastatic to bone (H CC) (Primary Dx); Prostate cancer (HCC) Start: 01-25-2025 End: 01-25-2025 [facility]ulatory [facility] on [facility]: Prostate cancer (HCC) Start: 12-14-2024 End: 12-14-2024 Refill Jeramie Ching MD Work Phone: [facility] Comment on above: 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 [place] Start: 11-21-2024 End: 11-21-2024 Office outpatient visit 25 minutes Kristen Urias MD Work [facility] Comment on above: Malignant neoplasm metastatic to bone (H CC) (Primary Dx); Prostate cancer (HCC) Start: 11-21-2024 End: 11-21-2024 ambulatory Kristen Urias MD Work Phone: [facility] Comment on above: Prostate cancer (HCC) (Primary Dx); Malignant neoplasm metastatic to bone (HCC) Start: 11-15-2024 End: 11-15-2024 Orders Only Kristen Urias MD Work Phone: [facility] Comment on above: Malignant neoplasm metastatic to bone (H CC) (Primary Dx); Prostate cancer (HCC) Start: 10-03-2024 End: 10-03-2024 Office outpatient visit 15 minutes Jeramie Ching MD Work Phone: [facility] Comment on above: Essential hypertension (Primary Dx); 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 Comment on above: Prostate cancer (HCC) Start: 08-29-2024 End: 08-29-2024 Office outpatient visit 25 minutes Kristen Urias MD Work Phone: 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) (Primary Dx); Prostate cancer (HCC) Start: 08-18-2024 End: 08-18-2024 Refill Jeramie Ching MD Work Phone: [facility] Comment on above: Elevated prostate specific antigen (PSA) Start: 07-27-2024 End: 07-27-2024 Telephone encounter Jeramie Ching MD Work Phone: [facility] Comment on above: Other (Missed Home visit) Start: 07-20-2024 End: 07-20-2024 Office outpatient visit 25 minutes Jeramie Ching MD Work Phone: [facility] Comment on above: 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); Needs flu shot; History of renal stone; Physical deconditioning; 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 Start: 07-06-2024 End: 07-06-2024 ambulatory Shalom Hussein Facility:[facility] Start: 07-04-2024 End: 07-04-2024 ambulatory [facility] Facility:[facility] Start: 06-24-2024 End: 07-06-2024 Evaluation and management of inpatient [facility] Facility:[facility] Start: 06-20-2024 End: 06-24-2024 Evaluation and management of inpatient Maria Antonia Baker MD Work Phone: [facility] Medical Surgical Unit [facility] Comment on above: Failure to thrive in adult (Primary Dx); Pressure injury of right buttock, stage 3 (HCC) Start: 06-13-2024 End: 06-13-2024 Refill Abigail Olsen APRN - [employer] Work Phone: [facility] Comment on above: Bronchitis Start: 06-06-2024 End: 06-06-2024 ambulatory Kristen Urias MD Work Phone: [facility] Comment on above: Prostate cancer (HCC) (Primary Dx); Malignant neoplasm metastatic to bone (HCC) Start: 06-06-2024 End: 06-06-2024 Office outpatient visit 25 minutes Kristen Urias MD Work Phone: [facility] Comment on above: Prostate cancer (HCC) (Primary Dx); Malignant neoplasm metastatic to bone (HCC) Start: 05-31-2024 End: 05-31-2024 ambulatory Dianne Montemayor RN [facility] [place] Clinical Communication Comment on above: Prostate cancer (HCC) Start: 05-31-2024 End: 05-31-2024 Patient encounter procedure Dianne Montemayor RN [facility] [place] Clinical Communication Start: 05-31-2024 End: 05-31-2024 Office outpatient visit 15 minutes Abigail Raúl BONDSN - [employer]ERSON Work Phone: [facility] Comment on above: Bronchitis (Primary Dx); Fever, unspecified fever cause Start: 05-25-2024 End: 05-25-2024 Orders Only Kristen Maty Urias MD Work Phone: [facility] Start: 05-03-2024 End: 05-05-2024 Telephone encounter Jeramie Ching MD Work Phone: [facility] Comment on above: Med Refill Start: 03-07-2024 End: 03-07-2024 ambulatory Kristen Maty Urias MD Work Phone: [facility] Comment on above: Prostate cancer (HCC) (Primary Dx); Malignant neoplasm metastatic to bone (HCC) Start: 03-07-2024 End: 03-07-2024 Office outpatient visit 25 minutes Kristen Maty Urias MD Work Phone: [facility] Comment on above: Prostate cancer (HCC) (Primary Dx); Screening for prostate cancer Start: 03-01-2024 Orders Only Kristen Maty Urias MD Work Phone: [facility] Start: 02-29-2024 Orders Only Kristen Maty Urias MD Work Phone: [facility] Comment on above: Malignant neoplasm metastatic to bone (H CC) (Primary Dx); Prostate cancer (HCC) Start: 02-28-2024 Orders Only Kristen Maty Urias MD Work Phone: [facility] Start: 02-07-2024 End: 02-07-2024 Assay of hemosiderin, quant Jeramie Ching MD Work Phone: [facility] Work Phone: Start: 02-07-2024 End: 02-07-2024 Patient encounter procedure Jeramie Ching MD Work Phone: [facility] Comment on above: Routine general medical examination at [facility] (Primary Dx); Prostate cancer (HCC); Essential hypertension; 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; Pure hypercholesterolemia; Weakness of both lower extremities; Gait disorder Start: 2024 Refill Kristen Urias MD Work Phone: [facility] Comment on above: Prostate cancer (HCC) Start: 12-22-2023 End: 12-22-2023 Office outpatient visit 25 minutes Jeramie Ching MD Work Phone: [facility] Comment on above: Acute bacterial bronchitis (Primary Dx); Drug-induced polyneuropathy (HCC); 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); Malignant neoplasm metastatic to bone (HCC) Start: 12-14-2023 End: 12-14-2023 ambulatory Kristen Urias MD Work Phone: [facility] Comment on above: Malignant neoplasm metastatic to bone (H CC); Prostate cancer (HCC) Start: 12-08-2023 Orders Only Kristen Urias MD Work Phone: [facility] Comment on above: Malignant neoplasm metastatic to bone (H CC) (Primary Dx); Prostate cancer (HCC) Start: 12-08-2023 Refill Jeramie Ching MD Work Phone: [facility] Comment on above: 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) (Primary Dx) Start: 12-07-2023 End: 12-07-2023 Office outpatient visit 25 minutes Kristen Urias MD Work Phone: [facility] Comment on above: Prostate cancer (HCC) (Primary Dx); Screening for prostate cancer Start: 12-02-2023 ambulatory January Rosa Isela [facility] Comment on above: Prostate cancer (HCC) Start: 11-23-2023 Refill Jeramie Ching MD Work Phone: [facility] [place] Clinical Communication Comment on above: Essential hypertension (Primary Dx); 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) Start: 09-29-2023 Refill Delphine Wellington ANGELINA Work Phone: [facility] [place] Comment on above: Refill Request Start: 09-21-2023 End: 09-21-2023 ambulatory Kristen Urias MD Work Phone: [facility] Comment on above: Malignant neoplasm metastatic to bone (H CC); Prostate cancer (HCC) Start: 09-07-2023 End: 09-07-2023 Office outpatient visit 25 minutes Kristen Urias MD Work Phone: [facility] Comment on above: Prostate cancer (HCC) (Primary Dx); Encounter for screening for malignant neoplasm of prostate Start: 08-04-2023 ambulatory Corinne Starla [facility] Comment on above: Prostate cancer (HCC) Start: 06-30-2023 Refill Juanjo Ferrell MD Work Phone: [facility] [place] Comment on above: Refill Request Start: 06-30-2023 Telephone encounter Juanjo Ferrell MD Work Phone: [facility] [place] Comment on above: Appointment Start: 06-29-2023 End: 06-29-2023 Office outpatient visit 25 minutes Kristen Urias MD Work Phone: [facility] Comment on above: Malignant neoplasm metastatic to bone (H CC) (Primary Dx); Prostate cancer (HCC) Start: 05-31-2023 Refill Jeramie Ching MD Work Phone: [facility] Comment on above: Elevated PSA (Primary Dx) Start: 04-06-2023 Telephone encounter Jeramie Ching MD Work Phone: [facility] Comment on above: Referral (Fax ) Start: 03-26-2023 Orders Only Kristen Urias MD Work Phone: [facility] Start: 03-25-2023 End: 03-25-2023 Orders Only Kristen Maty Urias MD Work Phone: [facility] Comment on above: Malignant neoplasm metastatic to bone (H CC) (Primary Dx); Prostate cancer (HCC) Prostate cancer (HCC ); Malignant neoplasm metastatic to bone (HCC) Start: 03-25-2023 End: 03-25-2023 Office outpatient visit 25 minutes Kristen Maty Urias MD Work Phone: [facility] Comment on above: Prostate cancer (HCC) (Primary Dx) Start: 03-24-2023 Orders Only Kristen Maty Urias MD Work Phone: [facility] Start: 03-08-2023 ambulatory Kimberlee Alva [facility] Start: 02-15-2023 Telephone encounter Krsiten Maty Urias MD Work Phone: [facility] Comment on above: Med Refill Start: 02-03-2023 End: 02-03-2023 Assay of hemosiderin, quant Jeramie Ching MD Work Phone: [facility] Start: 02-03-2023 End: 02-03-2023 Patient encounter procedure Jeramie Ching MD Work Phone: [facility] Comment on above: Routine general medical examination at [facility] (Primary Dx); Elevated PSA; Essential hypertension; Pure hypercholesterolemia Start: 12-23-2022 End: 12-23-2022 ambulatory Kristen Maty Urias MD Work Phone: [facility] Comment on above: Prostate cancer (CMS/HCC) (HCC); Bone metastasis (HCC) Start: 12-23-2022 End: 12-23-2022 Office outpatient visit 25 minutes Kristen Maty Urias MD Work Phone: [facility] Comment on above: Prostate cancer (CMS/HCC) (HCC) (Primary Dx); Bone metastasis (HCC) Start: 12-17-2022 Orders Only Kristen Maty Urias MD Work Phone: [facility] Start: 12-11-2022 Refill Jeramie Ching MD Work Phone: [facility] Start: 11-26-2022 Refill Jeramie Ching MD Work Phone: [facility] Start: 09-24-2022 End: 09-24-2022 ambulatory [facility] Comment on above: Prostate cancer (CMS/HCC) (HCC) (Primary Dx); Bone metastasis (HCC) Start: 06-27-2022 Refill Juanjo Ferrell MD Work Phone: [facility] [place] Comment on above: Refill Request Start: 06-25-2022 [facility] Start: 06-25-2022 End: 06-25-2022 Subsequent hospital visit by physician Kristen Urias MD Work Phone: [facility] Comment on above: Bone metastasis (HCC) (Primary Dx); Prostate cancer (HCC) Start: 04-02-2022 End: 04-02-2022 Subsequent hospital visit by physician Kristen Urias MD Work Phone: [facility] Comment on above: Bone metastasis (HCC) (Primary Dx); Prostate cancer (HCC) Start: 01-08-2022 [facility] Start: 01-08-2022 End: 01-08-2022 Subsequent hospital visit by physician Kristen Urias MD Work Phone: [facility] Comment on above: Bone metastasis (HCC) (Primary Dx); Prostate cancer (HCC) Start: 10-09-2021 ambulatory [facility] Start: 08-15-2021 End: 08-15-2021 Subsequent hospital visit by physician Corazon Aguilar CNP Work Phone: [facility] CT Scan Comment on above: Cyst of kidney, acquired; Calculus of kidney; Complex renal cyst; Right renal stone Start: 07-17-2021 End: 07-17-2021 Subsequent hospital visit by physician Kristen Urias MD Work Phone: [facility] Comment on above: Bone metastasis (HCC) (Primary Dx); Prostate cancer (HCC) Start: 06-10-2021 End: 06-10-2021 Subsequent hospital visit by physician Jeramie Ching MD Work Phone: [facility] Ultrasound Comment on above: Other specified abnormal findings of blo od chemistry Start: 05-21-2021 Patient encounter status Jeramie Ching MD Work Phone: [facility] Start: 04-24-2021 End: 04-24-2021 Subsequent hospital visit by physician Kristen Urias MD Work Phone: [facility] Comment on above: Bone metastasis (HCC) (Primary Dx); Prostate cancer (HCC) Start: 04-02-2021 End: 04-02-2021 Subsequent hospital visit by physician Kristen Urias MD Work Phone: [facility] Nuclear Medicine Comment on above: Malignant neoplasm of prostate (HCC); Secondary malignant neoplasm of bone (HCC); Prostate cancer (HCC); Bone metastasis (HCC) Start: 12-30-2020 End: 12-30-2020 Subsequent hospital visit by physician Jeramie Sarmiento Work Phone: [facility] Comment on above: Prostate cancer (HCC) (Primary Dx) Start: 12-23-2020 End: 12-23-2020 Subsequent hospital visit by physician Corazon Tee Work Phone: [facility] [address] X-RAY Comment on above: Hip pain Start: 07-28-2020 End: 07-28-2020 Refill Juanjo Ferrell Work Phone: [facility] Cardiology [place] Comment on above: Refill Request Start: 07-04-2020 End: 07-04-2020 Subsequent hospital visit by physician Kadeem Ambrosio Work Phone: [facility] Radiology Start: 05-24-2020 End: 05-24-2020 Subsequent hospital visit by physician Jeramie Sarmiento Work Phone: [facility] Nuclear Medicine Comment on above: Prostate cancer (HCC) Start: 11-29-2019 End: 11-29-2019 Subsequent hospital visit by physician Jeramie Sarmiento Work Phone: [facility] Nuclear Medicine Comment on above: Prostate cancer (HCC) Start: 11-02-2019 End: 11-02-2019 Subsequent hospital visit by physician Kadeem Ambrosio MD Work Phone: [facility] Radiology Start: 08-03-2019 End: 08-03-2019 Subsequent hospital visit by physician Kadeem Ambrosio Work Phone: [facility] Radiology Start: 07-05-2019 End: 07-06-2019 Subsequent hospital visit by physician Kadeem Ambrosio Work Phone: [facility] 1E MED SURG Comment on above: Arthritis of left knee (Primary Dx) Start: 06-28-2019 End: 06-28-2019 Subsequent hospital visit by physician Kadeem Ambrosio Work Phone: [facility] Pre-Admit Testing Comment on above: Arrived Start: 05-18-2019 End: 06-20-2021 Patient encounter status Kristen Urias MD Work Phone: [facility] Work Phone: Start: 05-10-2018 Ambulatory JUANJO FERRELL Facility:[facility] Procedures Date Procedure Procedure Detail Performing Clinician Start: 08-02-2025 Comprehensive metabo lic panel Kristen Urias MD Work Phone: Start: 06-04-2025 Comprehensive metabo lic panel Kristen Urias MD Work Phone: Start: 05-10-2025 Comprehensive metabo lic panel Kristen Urias MD Work Phone: Start: 04-09-2025 Comprehensive metabo lic panel Kristen Urias MD Work Phone: Start: 02-13-2025 Blood count complete auto&auto difrntl wbc Kristen Urias MD Work Phone: Start: 02-12-2025 Adult depression screening assessment Jeramie Ching MD Work Phone: Start: 11-21-2024 Blood count complete auto&auto difrntl wbc Kristen Urias MD Work Phone: Start: 08-29-2024 Assay of prostate specific antigen total Kristen Urias MD Work Phone: Start: 08-29-2024 Follow-up visit Follow-up KRISTEN URIAS Start: 06-24-2024 Comprehensive metabo lic panel Maria Antonia Baker MD Work Phone: Start: 06-23-2024 Comprehensive metabo lic panel Maria Antonia Baker MD Work Phone: Start: 06-22-2024 End: 06-22-2024 Comprehensive metabolic panel Maria Antonia Baker MD Work Phone: Start: 06-21-2024 Comprehensive metabo lic panel Maria Antonia Baker MD Work Phone: Start: 06-20-2024 Basic metabolic pane l calcium total Judy [facility] Work Phone: Start: 06-20-2024 Ecg routine ecg w/le ast 12 lds trcg only w/o i&r Judy [facility] Work Phone: Start: 06-20-2024 Radiologic exam ches t single view Judy [facility]Nataliia Work Phone: Start: 05-31-2024 Iaadiadoo influenza Charles anabele Raúl [employer] Work Phone: Start: 02-28-2024 Complete blood count with white cell differential, automated Kristen Urias MD Work Phone: Start: 02-28-2024 Comprehensive metabo lic panel Kristen Urias MD Work Phone: Start: 02-28-2024 PSA TOTAL (SCREENING) S ameer Maty Urias MD Work Phone: Start: 02-28-2024 Lipid 1996 panel - S catherine or Plasma Kristen Urias MD Work Phone: Start: 02-07-2024 Adult depression screening assessment Jeramie Ching MD Work Phone: Start: 03-25-2023 Comprehensive metabo lic panel Kristen Urias MD Work Phone: Start: 02-03-2023 Adult depression screening assessment Kimberlee Alva [facility] Start: 02-03-2023 Lipid 1996 panel - S catherine or Plasma Kristen Urias MD Work Phone: Start: 09-24-2022 Comprehensive metabo lic panel Kristen Urias MD Work Phone: Start: 03-09-2022 Lipid 1996 panel - S catherine or Plasma Bed 7 Start: 08-15-2021 Ct abdomen w/o & w/contrast material Corazon Tee [employer] Work Phone: Start: 06-10-2021 Us abdominal real ti me w/image limited Jeramie Ching MD Work Phone: Start: 04-02-2021 Bone &/joint imaging whole body Kristen Urias MD Work Phone: Start: 07-04-2020 Radiologic exam both knees standing anteropost Kadeem Ambrosio Work Phone: Start: 07-04-2020 Radiologic examinati on knee 1/2 views Kadeem Ambrosio Work Phone: Start: 05-24-2020 Bone &/joint imaging whole body Jeramie Sarmiento Work Phone: Start: 11-29-2019 Ct pelvis w/contrast material Jeramie Sarmiento Work Phone: Start: 11-29-2019 Bone &/joint imaging whole body Jeramie Sarmiento Work Phone: Start: 11-02-2019 Joint survey single view 2 or more joints Kadeem Ambrosio MD Work Phone: Start: 08-03-2019 Radiologic exam both knees standing anteropost Kadeem Ambrsoio Work Phone: Start: 08-03-2019 Radiologic examinati on knee 1/2 views Kadeem Ambrosio Work Phone: Start: 09-12-2019 Basic metabolic pane l calcium total Elian A Luisi Work Phone: Start: 07-06-2019 Blood count hemoglobin Elian Trejo Work Phone: Start: 07-05-2019 OPERATIVE REPORT 3m Sca nning Start: 07-05-2019 Radiologic examinati on knee 1/2 views Elian Craneaugusta Work Phone: Start: 07-18-2018 History of placement of stent for coronary artery disease History of heart artery stent Kadeem Ambrosio MD Work Phone: History of placement of stent for coronary artery disease History of heart artery stent Jeramie Ching MD Work Phone: Plan of Treatment Date Care Activity Detail Author Start: 02-27-2029 Lipid panel Lipid Panel [facility] Start: 02-04-2028 Lipid panel Lipid Panel [facility] Start: 04-01-2027 DTaP/Tdap/Td vaccine (3 - Td or Tdap) DTaP/Tdap/Td vaccine (3 - Td or Tdap) [facility] Start: 04-01-2027 DTaP/Tdap/Td vaccine (3 - Td) DTaP/Tdap/Td vaccine (3 - Td) [place] Start: 04-01-2027 DTaP/Tdap/Td Vaccines (3 - Td or Tdap) DTaP/Tdap/Td Vaccines (3 - Td or Tdap) [facility] Start: 04-01-2027 Urine microalbumin profile DTaP,Tdap,Td Vaccine (3 - Td or Tdap) [facility] Start: 03-09-2027 Lipid panel Lipid Panel [facility] Start: 02-12-2026 Depression Screening Depression Screening [facility] Start: 10-09-2025 End: 10-09-2025 Patient encounter procedure 10/09/2025 1:15 PM EST Office Visit [facility] [place] [address] [facility] [address] [place] [phone] Kristen Urias MD [address] [facility] [address] [place], [place] [id number] [facility] Start: 08-06-2025 End: 08-06-2025 Patient encounter procedure 08/06/2025 10:15 AM EDT Office Visit [facility] [address] [place] [phone] Kristen Urias MD [address], [address] [place] [id number] [facility] Start: 08-02-2025 End: 08-03-2026 Comprehensive metabolic 1998 panel - Serum or Plasma Comprehensive metabolic panel Lab STAT Malignant neoplasm metastatic to bone (HCC) Prostate cancer (HCC) Expected: 08/02/2025, Expires: 08/03/2026 [facility] Work Phone: Comment on above: Expected: 08/02/2025, Expires: Start: 08-02-2025 End: 08-02-2025 Patient encounter procedure 08/02/2025 1:00 PM EDT Office Visit [facility] [address] [place] [phone] Kristen Urias MD [address], [address] [place], [place] [phone] [facility] Start: 08-02-2025 End: 08-02-2025 ambulatory 08/02/2025 11:00 AM EDT Infusion [facility] [address] [place] [phone] Jose Still MD [address] [place] [address] Kristen Urias MD [address], [address] [place] [phone] [facility] Start: 06-25-2025 COVID-19 Vaccine ( season) COVID-19 Vaccine ( season) [facility] Start: 06-25-2025 Influenza vaccination Influenza Vaccine (#1) [facility] Start: 06-04-2025 End: 06-04-2025 Patient encounter procedure 06/04/2025 10:00 AM EDT Office Visit [facility] [place] [address] [place] [phone] Kristen Urias MD [address], [address] [place] [phone] [facility] [place] Start: 05-10-2025 End: 05-11-2026 Comprehensive metabolic 1998 panel - Serum or Plasma Comprehensive metabolic panel Lab STAT Malignant neoplasm metastatic to bone (HCC) Prostate cancer (HCC) Expected: 05/10/2025, Expires: 05/11/2026 [facility] Work Phone: Comment on above: Expected: 05/10/2025, Expires: Start: 05-10-2025 End: 05-10-2025 ambulatory 05/10/2025 11:00 AM EDT Infusion [facility] [address] [place] [phone] [facility] Start: 05-10-2025 End: 05-10-2025 Patient encounter procedure 05/10/2025 10:30 AM EDT Office Visit [facility] [place] [address] [place] [phone] Kristen Urias MD [address], [address] [place] [phone] [facility] [place] Start: 04-09-2025 End: 04-09-2025 Patient encounter procedure 04/09/2025 10:15 AM EDT [facility] [address] [place] [phone] Kristen Urias MD [address], [address] [place] [phone] [facility] [place] Start: 03-05-2025 End: 03-05-2025 Patient encounter procedure 03/05/2025 9:45 AM EDT Office Visit [facility] [place] [address] [place] [phone] Kristen Urias MD [address] [place], [address] [place] [phone] [facility] [place] Start: 02-22-2025 End: 02-22-2025 Patient encounter procedure 02/22/2025 9:00 AM EDT Appointment [facility] Nuclear Medicine [address] [place] [phone] Kristen Urias MD [address] [place], [address] [place] [id number] [facility] Nuclear Medicine Start: 02-14-2025 End: 02-14-2026 NM Whole body Bone Views NM bone whole body Imaging Routine Prostate cancer (HCC) Malignant neoplasm metastatic to bone (HCC) Expected: 02/14/2025, Expires: 02/14/2026 [facility] Comment on above: Expected: 02/14/2025, Expires: Start: 02-13-2025 End: 02-14-2026 Comprehensive metabolic 1998 panel - Serum or Plasma [facility] Work Phone: Comment on above: Expected: 02/13/2025, Expires: Expected: 02/13/2025 (Approximate), Expires: 02/13/2026 Start: 02-13-2025 End: 02-13-2025 ambulatory [facility] Start: 02-13-2025 End: 02-13-2025 Patient encounter procedure 02/13/2025 10:30 AM EDT Office Visit [facility] [place] [address] [place] [phone] Kristen Urias MD [address] [place], [address] [place] [phone] [facility] [place] Start: 02-12-2025 End: 02-12-2025 Patient encounter procedure [facility] Start: 02-06-2025 Depression Screening Depression Screening [facility] Start: 12-02-2024 Diabetes Screening Diabetes Screening [facility] Start: 11-21-2024 End: 11-22-2025 Comprehensive metabolic 1998 panel - Serum or Plasma [facility] Work Phone: Comment on above: Expected: 11/21/2024, Expires: Expected: 11/21/2024 (Approximate), Expires: 11/21/2025 Start: 11-21-2024 End: 11-21-2024 ambulatory 11/21/2024 11:00 AM EST Infusion [facility] [address] [place] [phone] Kristen Urias MD [address] [place], [address] [place], [place] [phone] [facility] Start: 11-21-2024 End: 11-21-2024 Patient encounter procedure 11/21/2024 10:45 AM EST Office Visit [facility] [address] [place] [phone] Kristen Urias MD [address] [place], [address] [place] [address] [facility] Start: 10-25-2024 Medicare Advantage Annual Wellness Visit Medicare Advantage Annual Wellness Visit [facility] Start: 10-09-2024 End: 10-09-2024 Patient encounter procedure 10/09/2024 4:20 PM EST Office Visit [facility] [address] [place] [phone] Jeramie Ching MD [address] [place] [phone] [facility] Start: 10-03-2024 End: 10-03-2024 Patient encounter procedure 10/03/2024 8:40 AM EST Office Visit [facility] [address] [place] [phone] Jeramie Ching MD [address] [place] [address] [facility] Start: 08-29-2024 End: 08-30-2025 Comprehensive metabolic 1998 panel - Serum or Plasma Comprehensive metabolic panel Lab STAT Malignant neoplasm metastatic to bone (HCC) Prostate cancer (HCC) Expected: 08/29/2024, Expires: 08/30/2025 [facility] Work Phone: Comment on above: Expected: 08/29/2024, Expires: Start: 08-29-2024 End: 08-29-2025 PSA Total (Diagnostic Post-Prostatectomy) [facility] Work Phone: Comment on above: Expected: 08/29/2024 (Approximate), Expi res: 08/29/2025 Start: 08-29-2024 End: 08-29-2024 ambulatory 08/29/2024 12:00 PM EST Infusion [address] [phone] Kristen Urias MD [address] [place] [address], [address] [place], [place] [phone] [facility] Start: 08-29-2024 End: 08-29-2024 Patient encounter procedure [facility] Start: 06-25-2024 COVID-19 Vaccine ( season) COVID-19 Vaccine ( season) [facility] Start: 06-25-2024 COVID-19 Vaccine ( season) COVID-19 Vaccine ( season) [facility] Start: 06-25-2024 Influenza vaccination Influenza Vaccine (#1) [facility] Start: 06-07-2024 End: 03-07-2025 CBC W Auto Differential panel - Blood CBC auto differential Lab Routine Prostate cancer (HCC) Expected: 06/07/2024 (Approximate), Expires: 03/07/2025 [facility] Work Phone: Comment on above: Expected: 06/07/2024 (Approximate), Expi res: 03/07/2025 Start: 06-07-2024 End: 03-07-2025 Comprehensive metabolic 1997 panel - Serum or Plasma Comprehensive metabolic panel Lab Routine Prostate cancer (HCC) Expected: 06/07/2024 (Approximate), Expires: 03/07/2025 [facility] [employer] Comment on above: Expected: 06/07/2024 (Approximate), Expi res: 03/07/2025 Start: 06-07-2024 End: 03-07-2025 PSA Total (Screening) PSA Total (Screening) Lab Routine Screening for prostate cancer Expected: 06/07/2024 (Approximate), Expires: 03/07/2025 [facility] Comment on above: Expected: 06/07/2024 (Approximate), Expi res: 03/07/2025 Start: 06-06-2024 End: 06-06-2025 CBC W Auto Differential panel - Blood CBC auto differential Lab Routine Prostate cancer (HCC) Malignant neoplasm metastatic to bone (HCC) Expected: 06/06/2024 (Approximate), Expires: 06/06/2025 [facility] Work Phone: Comment on above: Expected: 06/06/2024 (Approximate), Expi res: 06/06/2025 Start: 06-06-2024 End: 06-06-2025 Comprehensive metabolic 1997 panel - Serum or Plasma Comprehensive metabolic panel Lab Routine Prostate cancer (HCC) Malignant neoplasm metastatic to bone (HCC) Expected: 06/06/2024 (Approximate), Expires: 06/06/2025 [facility] [employer] [facility] [employer] Comment on above: Expected: 06/06/2024 (Approximate), Expi res: 06/06/2025 Start: 06-06-2024 End: 06-06-2025 PSA Total (Diagnostic Post-Prostatectomy) PSA Total (Diagnostic Post-Prostatectomy) Lab Routine Prostate cancer (HCC) Malignant neoplasm metastatic to bone (HCC) Expected: 06/06/2024 (Approximate), Expires: 06/06/2025 [facility] Comment on above: Expected: 06/06/2024 (Approximate), Expi res: 06/06/2025 Start: 06-06-2024 End: 06-06-2024 ambulatory 06/06/2024 1:00 PM EDT Infusion [facility] [address] [place] [phone] Kristen Urias MD [address], [address] [place] [phone] [facility] Start: 06-06-2024 End: 06-06-2024 Patient encounter procedure 06/06/2024 12:45 PM EDT Office Visit [facility] [address] [place] [phone] Kristen Urias MD [address], [address] [place] [phone] [facility] Start: 05-30-2024 End: 05-30-2024 ambulatory 05/30/2024 11:00 AM EDT Infusion [facility] [address] [place] [phone] Kristen Urias MD [address], [address] [place] [phone] [facility] Start: 05-30-2024 End: 05-30-2024 Patient encounter procedure 05/30/2024 10:15 AM EDT Office Visit [facility] [address] [place] [phone] Kristen Urias MD [address], [address] [place] [phone] [facility] Start: 03-11-2024 DIABETES SCREEN DIABETES SCREEN [facility] Start: 03-07-2024 End: 03-08-2025 Comprehensive metabolic 1998 panel - Serum or Plasma Comprehensive metabolic panel Lab STAT Malignant neoplasm metastatic to bone (HCC) Prostate cancer (HCC) Expected: 03/07/2024, Expires: 03/08/2025 [facility] [employer] Work Phone: Comment on above: Expected: 03/07/2024, Expires: Start: 03-07-2024 End: 03-07-2024 ambulatory 03/07/2024 11:00 AM EDT Infusion [facility] [address] [place] [phone] Kristen Urias MD [address], [address] [place], [place] [phone] [facility] Start: 03-07-2024 End: 03-07-2024 Patient encounter procedure 03/07/2024 10:00 AM EDT Office Visit [facility] [address] [place] [address] Kristen Urias MD [address], [address] [place], [place] [phone] [facility] Start: 03-05-2024 Medicare Advantage Annual Wellness Visit (AWV) Medicare Advantage Annual Wellness Visit (AWV) [facility] Start: 02-07-2024 End: 02-06-2025 Lipid 1996 panel - Serum or Plasma Lipid panel Lab Routine Pure hypercholesterolemia Expected: 02/07/2024 (Approximate), Expires: 02/06/2025 [facility] [employer] Work Phone: Comment on above: Expected: 02/07/2024 (Approximate), Expi res: 02/06/2025 Start: 02-07-2024 End: 02-07-2024 Patient encounter procedure [facility] Start: 02-04-2024 Depression Screening Depression Screening [facility] Start: 12-14-2023 End: 12-14-2024 Comprehensive metabolic 1997 panel - Serum or Plasma Comprehensive metabolic panel Lab STAT Malignant neoplasm metastatic to bone (HCC) Prostate cancer (HCC) Expected: 12/14/2023, Expires: 12/14/2024 [facility] [employer] [facility] Work Phone: Comment on above: Expected: 12/14/2023, Expires: Start: 12-14-2023 End: 12-14-2023 ambulatory 12/14/2023 11:00 AM EST Infusion [facility] [address] [place] [address] Kristen Urias MD [address], [address] [place] [address] [facility] Start: 12-07-2023 End: 12-07-2024 CBC W Auto Differential panel - Blood CBC auto differential Lab Routine Prostate cancer (HCC) Expected: 12/07/2023 (Approximate), Expires: 12/07/2024 [facility] Work Phone: Comment on above: Expected: 12/07/2023 (Approximate), Expi res: 12/07/2024 Start: 12-07-2023 End: 12-07-2024 Comprehensive metabolic 1998 panel - Serum or Plasma Comprehensive metabolic panel Lab Routine Prostate cancer (HCC) Expected: 12/07/2023 (Approximate), Expires: 12/07/2024 [facility] Comment on above: Expected: 12/07/2023 (Approximate), Expi res: 12/07/2024 Start: 12-07-2023 End: 12-07-2023 Patient encounter procedure 12/07/2023 9:00 AM EST Office Visit [facility] [address] [place] [phone] Kristen Urias MD [address], [address] [place] [address] [facility] Start: 12-01-2023 COVID-19 Vaccine ( season) COVID-19 Vaccine () [facility] Start: 10-25-2023 Medicare Advantage Annual Wellness Visit Medicare [facility]ly [facility] Annual Wellness Visit [facility] Start: 09-25-2023 COVID-19 Vaccine ( season) COVID-19 Vaccine () [facility] Start: 09-21-2023 End: 09-21-2023 ambulatory 09/21/2023 11:00 AM EST Infusion [facility] [address] [place] [phone] Kristen Urias MD [address], [address] [place] [address] [facility] Start: 09-07-2023 End: 09-07-2024 CBC W Auto Differential panel - Blood CBC auto differential Lab Routine Prostate cancer (HCC) Encounter for screening for malignant neoplasm of prostate Expected: 09/07/2023 (Approximate), Expires: 09/07/2024 [facility] Comment on above: Expected: 09/07/2023 (Approximate), Expi res: 09/07/2024 Start: 09-07-2023 End: 09-07-2024 Comprehensive metabolic 1998 panel - Serum or Plasma Comprehensive metabolic panel Lab Routine Prostate cancer (HCC) Encounter for screening for malignant neoplasm of prostate Expected: 09/07/2023 (Approximate), Expires: 09/07/2024 [facility] Comment on above: Expected: 09/07/2023 (Approximate), Expi res: 09/07/2024 Start: 09-07-2023 End: 09-07-2024 PSA Total (Screening) [facility] Syste m Work Phone: Comment on above: Ordered: 09/07/2023 Expected: 09/07/2023 (Approximate), Expires: 09/07/2024 Start: 09-07-2023 End: 09-07-2023 Patient encounter procedure 09/07/2023 9:15 AM EST Office Visit [facility] Medical [facility] Cancer Emma [address] [place] [phone] Kristen Urias MD [address] [place], [address] [place] [address] [facility] Start: 06-29-2023 End: 06-29-2023 ambulatory [facility] Start: 06-29-2023 End: 06-29-2023 Patient encounter procedure [facility] Start: 06-25-2023 Covid-19 Vaccine () Covid-19 Vaccine () [facility] Start: 06-25-2023 Influenza vaccination [facility] Start: 06-17-2023 End: 06-17-2024 Comprehensive metabolic 1998 panel - Serum or Plasma Comprehensive metabolic panel Lab STAT Malignant neoplasm metastatic to bone (HCC) Prostate cancer (HCC) Expected: 06/17/2023, Expires: 06/17/2024 [facility] Comment on above: Expected: 06/17/2023, Expires: Start: 03-25-2023 End: 03-25-2024 Comprehensive metabolic 1998 panel - Serum or Plasma Comprehensive metabolic panel Lab STAT Malignant neoplasm metastatic to bone (HCC) Prostate cancer (HCC) Expected: 03/25/2023, Expires: 03/25/2024 [facility] Work Phone: Comment on above: Expected: 03/25/2023, Expires: 4 Start: 03-25-2023 End: 03-25-2023 [facility] Start: 03-25-2023 End: 03-25-2023 Patient encounter procedure 03/25/2023 Office Visit Hematology and Oncology Kristen Urias MD [address] [place] [address], [address] [place] [address] [facility] Start: 02-03-2023 Annual Wellness Visit (AWV) Annual Wellness Visit (AWV) [facility] Start: 02-03-2023 End: 02-04-2024 CBC panel - Blood by Automated count CBC Lab Routine Elevated PSA Expected: 02/03/2023 (Approximate), Expires: 02/04/2024 [facility] Work Phone: Comment on above: Expected: 02/03/2023 (Approximate), Expi res: 02/04/2024 Start: 02-03-2023 End: 02-04-2024 Comprehensive metabolic 1998 panel - Serum or Plasma Comprehensive metabolic panel Lab Routine Essential hypertension Expected: 02/03/2023 (Approximate), Expires: 02/04/2024 [facility] Comment on above: Expected: 02/03/2023 (Approximate), Expi res: 02/04/2024 Start: 02-03-2023 End: 02-04-2024 Lipid 1996 panel - Serum or Plasma Lipid panel Lab Routine Pure hypercholesterolemia Expected: 02/03/2023 (Approximate), Expires: 02/04/2024 [facility] Comment on above: Expected: 02/03/2023 (Approximate), Expi res: 02/04/2024 Start: 02-03-2023 End: 02-04-2024 PSA, total and free PSA, total and free Lab Routine Elevated PSA Expected: 02/03/2023 (Approximate), Expires: 02/04/2024 [facility] Comment on above: Expected: 02/03/2023 (Approximate), Expi res: 02/04/2024 Start: 02-03-2023 End: 02-03-2023 Patient encounter procedure 02/03/2023 Office Visit Family Medicine Jeramie Ching MD [address] [phone] [facility] Medical Group [facility] Start: 01-26-2023 Depression Screen Depression Screen [facility] Start: 01-01-2023 Creatinine measurement Creatinine monitoring [facility] Start: 01-01-2023 Potassium monitoring Potassium monitoring [facility] Start: 01-01-2023 Prostate specific antigen measurement PSA counseling [facility] Start: 12-23-2022 End: 12-23-2022 ambulatory 12/23/2022 Infusion Infusion Therapy Kristen Urias MD [address] [place] [address], [address] [place] [address] [facility] Start: 12-23-2022 End: 12-23-2022 Patient encounter procedure 12/23/2022 Office Visit Hematology and Oncology Kristen Urias MD [address] [facility], [address] [place] [address] [facility] [place] Start: 10-25-2022 ADVANCE DIRECTIVE DISCUSSION ADVANCE DIRECTIVE DISCUSSION [facility] Start: 10-25-2022 DEPRESSION ASSESSMENT DEPRESSION ASSESSMENT [facility] Start: 09-24-2022 End: 09-24-2022 Patient encounter procedure [facility] [place] Start: 09-10-2022 COVID-19 Vaccine (5 - Pfizer risk series) COVID-19 Vaccine (5 - Pfizer risk series) [facility] Start: 08-13-2022 Creatinine measurement Creatinine monitoring [facility] Work Phone: Start: 08-08-2022 Potassium monitoring Potassium monitoring [facility] Work Phone: Start: 08-08-2022 Prostate specific antigen measurement PSA counseling [facility] Work Phone: Start: 06-25-2022 Influenza vaccination [facility] Start: 06-25-2022 End: 06-25-2022 Patient encounter procedure [facility] [place] Start: 06-23-2022 Creatinine measurement Creatinine monitoring [facility] Work Phone: Start: 06-23-2022 Potassium monitoring Potassium monitoring [facility] Work Phone: Start: 06-23-2022 Prostate specific antigen measurement PSA counseling [facility] Work Phone: Start: 06-18-2022 End: 06-18-2022 Nursing evaluation of patient and report 06/18/2022 Nurse Only Hematology and Oncology [facility] [place] Start: 05-31-2022 COVID-19 Vaccine (5 - Booster for Pfizer series) COVID-19 Vaccine (5 - Booster for Pfizer series) [facility] Start: 05-21-2022 Creatinine measurement Creatinine monitoring [facility] Work Phone: Start: 05-21-2022 Potassium monitoring Potassium monitoring [facility] Work Phone: Start: 05-21-2022 Prostate specific antigen measurement PSA counseling [facility] Work Phone: Start: 04-17-2022 Prostate specific antigen measurement PSA counseling [facility] Work Phone: Start: 04-02-2022 End: 04-02-2022 Patient encounter procedure 04/02/2022 Appointment Infusion Therapy [facility] Start: 03-26-2022 End: 03-26-2022 Patient encounter procedure 03/26/2022 Office Visit Hematology and Oncology Kristen Urias MD [address] [place] [address], [address] [place] [address] [facility] [place] Start: 03-11-2022 Creatinine measurement Creatinine monitoring [facility] Work Phone: Start: 03-11-2022 Diabetes mellitus screening Diabetes Screening [facility] Start: 03-11-2022 Hepatitis B surface antibody level LDL Cholesterol [facility] Start: 03-11-2022 Lipid panel Lipid screen [facility] Work Phone: Start: 03-11-2022 Potassium monitoring Potassium monitoring [facility] Work Phone: Start: 03-11-2022 Prostate specific antigen measurement PSA counseling [facility] Work Phone: Start: 2022 End: 2022 Patient encounter procedure [facility] Medical [facility] Start: 02-01-2022 Annual Wellness Visit (AWV) Annual Wellness Visit (AWV) [facility] Start: 01-31-2022 Depression Screen Depression Screen [facility] Start: 01-08-2022 COVID-19 Vaccine (4 - Booster for Pfizer series) COVID-19 Vaccine (4 - Booster for Pfizer series) [facility] Start: 12-11-2021 COVID-19 VACCINE (4 - Booster for Pfizer series) COVID-19 VACCINE (4 - Booster for Pfizer series) [facility] Start: 10-25-2021 ADVANCE DIRECTIVE DISCUSSION ADVANCE DIRECTIVE DISCUSSION [facility] Start: 10-09-2021 End: 10-09-2021 Patient encounter procedure 10/09/2021 Appointment Infusion Therapy [facility] Start: 10-05-2021 COVID-19 VACCINE (4 - Pfizer series) COVID-19 VACCINE (4 - Pfizer series) [facility] Start: 10-02-2021 End: 10-02-2021 Patient encounter procedure 10/02/2021 Office Visit Hematology and Oncology Kristen Urias MD [address], [address] [place] [address] [phone] [facility] [place] Start: 09-26-2021 Creatinine measurement Creatinine monitoring [facility] Work Phone: Start: 09-26-2021 Potassium monitoring Potassium monitoring [facility] Work Phone: Start: 09-26-2021 Prostate specific antigen measurement PSA counseling [facility] Work Phone: Start: 08-08-2021 End: 08-08-2021 Office Visit 08/08/2021 Office Visit Hematology and Oncology Kristen Urias MD [address], [address] [place] [address] [phone] [facility] [place] Start: 07-28-2021 End: 07-28-2021 Patient encounter procedure 07/28/2021 Office Visit Urology Corazon Tee, [employer] [facility] [address] [facility] [address] [place] [address] [phone] [facility] [place] Start: 07-17-2021 End: 07-17-2021 Patient encounter procedure 07/17/2021 Appointment Infusion Therapy [facility] Start: 06-25-2021 Influenza vaccination Flu vaccine (#1) [facility] Work Phone: Start: 06-23-2021 End: 06-23-2021 Patient encounter procedure 06/23/2021 Office Visit Hematology and Oncology Kristen Urias MD [address], [address] [place] [address] [phone] [facility] [place] Start: 05-21-2021 End: 05-21-2021 Patient encounter procedure 05/21/2021 Office Visit Hematology and Oncology Kristen Urias MD [address], [address] [place] [address] [phone] [facility] [place] Start: 04-23-2021 Creatinine measurement Creatinine monitoring [facility] Start: 04-23-2021 Lipid panel Lipid screen [facility] TONY SIERRA Start: 04-23-2021 Potassium monitoring Potassium monitoring [facility] OHTONY Start: 04-23-2021 Prostate specific antigen [facility] Start: 03-25-2021 End: 03-25-2021 Appointment 03/25/2021 Appointment Infusion Therapy [facility] Start: 01-31-2021 End: 01-31-2021 Office Visit 01/31/2021 Office Visit Family Medicine Jeramie Ching MD [address] [facility] [address] [place] [phone] [facility] Start: 01-10-2021 COVID-19 Vaccine (3 - Pfizer risk 3-dose series) COVID-19 Vaccine (3 - Pfizer risk 3-dose series) [facility] Work Phone: Start: 12-23-2020 End: 12-23-2020 Office Visit 12/23/2020 Office Visit Urology Corazon Tee, CHERYL - [employer] [address] [place] [address] [phone] [facility] [place] Start: 11-27-2020 Creatinine monitoring Creatinine monitoring [facility] Work Phone: Start: 10-16-2020 Creatinine monitoring Creatinine monitoring [facility] Work Phone: Start: 10-16-2020 Potassium monitoring Potassium monitoring [facility] Work Phone: Start: 08-08-2020 End: 08-08-2020 Office Visit 08/08/2020 Office Visit Hematology and Oncology Kristen Urias MD [address] [facility] [place] [address] [phone] [facility] [place] Start: 07-06-2020 Creatinine monitoring Creatinine monitoring [facility] TONY SIERRA Start: 07-06-2020 Potassium monitoring Potassium monitoring [facility] RIGO, TONY Start: 07-02-2020 End: 07-02-2020 Office Visit 07/02/2020 Office Visit UrologJeramie Ochoa MD [address] [place] [phone] [facility] [place] Start: 06-27-2020 Creatinine monitoring Creatinine monitoring [facility] TONY Start: 06-27-2020 Lipid screen Lipid screen [facility] TONY Start: 06-27-2020 Potassium monitoring Potassium monitoring [facility] TONY Start: 06-25-2020 Influenza vaccination [facility] TONY Start: 06-18-2020 End: 06-18-2020 Office Visit 06/18/2020 Office Visit Jeramie Aguilera MD [address] [place] [phone] [facility] [place] Start: 02-26-2020 End: 02-26-2020 Office Visit 02/26/2020 Office Visit Family Medicine Jeramie Ching MD [address] [phone] [facility] Start: 12-22-2019 End: 12-22-2019 Office Visit 12/22/2019 Office Visit Jeramie Aguilera MD [address] [place] [phone] [facility] [place] Start: 11-17-2019 End: 11-17-2019 Patient encounter procedure 11/17/2019 Procedure visit Jeramie Aguilera MD [address] [place] [phone] [facility] [place] Start: 11-02-2019 End: 11-02-2019 Nurse Only [facility] [place] Start: 08-28-2019 End: 08-28-2019 Office Visit 08/28/2019 Office Visit Family Medicine Jeramie Ching MD [address] [phone] [facility] Start: 08-10-2019 End: 08-10-2019 Office Visit 08/10/2019 Office Visit Hematology and Oncology Kristen Urias MD [address] [facility], [address] [place] [address] [phone] [facility] [place] Start: 08-02-2019 End: 08-02-2019 Office Visit 08/02/2019 Office Visit Urology Jeramie Sarmiento MD [address] [place] [phone] [facility] [place] Start: 07-19-2019 End: 07-19-2019 Office Visit 07/19/2019 Office Visit Family Medicine Jeramie Ching MD [address] [facility] [facility] [address] [place] [phone] [facility] Start: 07-05-2019 End: 07-05-2019 Appointment 07/05/2019 Appointment General Surgery Kadeem Ambrosio MD [address] [facility] [place] [address] [facility] Start: 06-25-2019 Influenza vaccination Flu vaccine (#1) [place] Start: 04-13-2019 Annual Wellness Visit (AWV) Annual Wellness Visit (AWV) [place] Start: 02-01-2015 RSV Immunization for Adults (1 - 1-dose 75+ series) RSV Immunization for Adults (1 - 1-dose 75+ series) [facility] Start: 08-20-2010 Shingles Vaccine (2 of 3) Shingles Vaccine (2 of 3) [place] Start: 02-01-2005 ADVANCE DIRECTIVE DISCUSSION ADVANCE DIRECTIVE DISCUSSION [facility] Start: 02-01-2005 PNEUMOCOCCAL: 65+ (1 - PCV) PNEUMOCOCCAL: 65+ (1 - PCV) [facility] Start: 02-01-2005 PNEUMOVAX AGE 65 AND OVER WITH 5YR LOOKBACK (#1) PNEUMOVAX AGE 65 AND OVER WITH 5YR LOOKBACK (#1) [facility] Start: 02-01-2003 Annual Wellness Visit (AWV) Annual Wellness Visit (AWV) [place] Start: 2000 RSV Immunization aged 60 or older (1 - 1-dose 60+ series) RSV Immunization aged 60 or older (1 - 1-dose 60+ series) [facility] Start: 2000 RSV Vaccine (1 - 1-dose 60+ series) RSV Vaccine (1 - 1-dose 60+ series) [facility] Start: 02-01-1990 SHINGRIX VACCINE (1 of 2) SHINGRIX VACCINE (1 of 2) [facility] Start: 02-01-1985 DIABETES SCREEN DIABETES SCREEN [facility] Start: 02-01-1975 LIPID SCREEN LIPID SCREEN [facility] Start: 02-01-1959 Urine microalbumin profile DTAP,TDAP,TD (1 - Tdap) [facility] Start: 02-01-1958 ANNUAL PCP TEAM CHRONIC DISEASE VISIT ANNUAL PCP TEAM CHRONIC DISEASE VISIT [facility] Start: 02-01-1958 BP CONTROLLED (<130/80) BP CONTROLLED (<130/80) [facility] Start: 02-01-1958 Hepatitis B surface antibody level LDL CHOLESTEROL [facility] Start: 1940 Examination of skin Derm Melanoma Skin Check [facility] Start: 1940 Hepatitis B Vaccines (1 of 3 - 3-dose series) Hepatitis B Vaccines (1 of 3 - 3-dose series) [facility] Start: 1940 Medicare Advantage Annual Wellness Visit (AWV) Medicare Advantage Annual Wellness Visit (AWV) [facility] CBC W Auto Differential panel - Blood CBC and differential Lab Routine Prostate cancer (CMS/HCC) (HCC) Bone metastasis (HCC) Ordered: 09/24/2022 [facility] System Work Phone: Comment on above: Ordered: 09/24/2022 End: 05-24-2020 CT PELVIS W CONTRAST CT PELVIS W CONTRAST Imaging Routine Prostate cancer (HCC) 1 Occurrences starting 05/24/2020 until 05/24/2020 [place], [place] Comment on above: 1 Occurrences starting 05/24/2020 until 05/24/2020 CT PELVIS W CONTRAST Additional Contrast? None CT PELVIS W CONTRAST Additional Contrast? None Imaging Routine Prostate cancer (HCC) 05/24/2020 10:45 AM EDT [employer] Incentive spirometry Incentive s pirometry Respiratory Care Routine Every 2hr while awake until discontinued starting 07/05/2019 [facility] TONY Comment on above: Every 2hr while awake until discontinued starting 07/05/2019 Initiate Oxygen Therapy Protocol Initiate Oxygen Therapy Protocol Respiratory Care Routine Daily until discontinued starting 07/05/2019 [facility] TONY Comment on above: Daily until discontinued starting 2018 End: 02-22-2025 NM Whole body Bone Views [facility] Work Phone: Comment on above: Once for 1 Occurrences starting 02/23/20 until 02/22/2025 PSA Total (Screening) PSA Total (Screening) Lab Routine Screening for prostate cancer Ordered: 12/07/2023 [employer] Comment on above: Ordered: 12/07/2023 PSA, total and free PSA, total a nd free Lab STAT Malignant neoplasm of prostate (HCC) 08/02/2025 11:09 AM EDT [facility] Work Phone: End: 12-23-2020 XR PELVIS (1-2 VIEWS) XR PELVIS (1-2 VIEWS) Imaging Routine Hip pain 1 Occurrences starting 12/23/2020 until 12/23/2020 [employer] Work Phone: Comment on above: 1 Occurrences starting 12/23/2020 until 12/23/2020 End: 12-23-2020 XR PELVIS (1-2 VW) XR PELVIS (1-2 VW) Imaging Routine Once for 1 Occurrences starting 12/23/2020 until 12/23/2020 [employer] Work Phone: Comment on above: Once for 1 Occurrences starting 12/24/19 21 until 12/23/2020 XR PELVIS (1-2 VW) XR PELVIS (1- 2 VW) Imaging Routine 12/23/2020 9:17 AM EST [employer] Work Phone: [facility] Immunizations Immunization Date Immunization Notes Care Provider Fa cili 07-03-2025 Seasonal trivalent influenza vaccine, adjuvanted, preservative free Jeramie Ching MD Work Phone: [facility] 07-20-2024 Seasonal trivalent influenza vaccine, adjuvanted, preservative free Jeramie Ching MD Work Phone: [facility] 07-20-2024 influenza virus vacc ine, unspecified formulation Kristen Urias MD Work Phone: [facility] 07-31-2023 COVID-19, mRNA, LNP- S, PF, 50 mcg/0.5 mL Kristen Urias MD Work Phone: [facility] 07-31-2023 Influenza, Seasonal, Quadrivalent, Adjuvanted Kristen Urias MD Work Phone: [facility] 07-31-2023 influenza virus vacc ine, unspecified formulation Jeramie Ching MD Work Phone: [facility] 07-16-2022 Covid-19, Pfizer Bivalent Booster, (Age 12y+), Im, 30 Mcg/0e Kristen Urias MD Work Phone: [facility] 07-16-2022 Influenza, High-dose Seasonal, Quadrivalent, Preservative Free Kristen Urias MD Work Phone: [facility] 07-16-2022 influenza virus vacc ine, unspecified formulation Jeramie Ching MD Work Phone: [facility] 01-29-2022 Covid-19, Pfizer Gra y Top, Do Not Dilute, (Age 12 Y+), Im, L Jeramie Ching MD Work Phone: [facility] 08-10-2021 Pfizer SARS-CoV-2 Vaccination Jeramie Ching MD Work Phone: [facility] 07-21-2021 Influenza, High-dose Seasonal, Quadrivalent, Preservative Free Kristen Urias MD Work Phone: [facility] 07-21-2021 influenza virus vacc ine, unspecified formulation Delphine Wellington APRN.CNP Work Phone: [facility] 12-13-2020 COVID-19, Pfizer, PF , 30mcg/0.3mL Jeramie Ching MD Work Phone: [facility] Work Phone: 11-23-2020 COVID-19, Pfizer, PF , 30mcg/0.3mL Jeramie Ching MD Work Phone: [facility] Work Phone: 07-19-2020 Influenza, Quadv, adjuvanted, 65 yrs +, IM, PF (Fluad) Jeramie Ching MD Work Phone: [facility] Work Phone: 07-09-2020 influenza virus vacc ine, unspecified formulation Jeramie Ching MD Work Phone: [facility] Work Phone: 08-28-2019 influenza, high dose seasonal, preservative-free Kadeem Ambrosio MD Work Phone: [facility] 08-28-2019 Influenza, High-dose Seasonal, Quadrivalent, Preservative Free Kristen Urias MD Work Phone: [facility] 08-05-2019 zoster vaccine recombinant Kadeem Ambrosio MD Work Phone: [facility] Work Phone: 04-06-2019 zoster vaccine recombinant Kadeem Ambrosio MD Work Phone: [facility] Work Phone: 01-26-2019 influenza virus vacc ine, unspecified formulation Kadeem Ambrosio MD Work Phone: [facility] Work Phone: 07-18-2018 Influenza Vaccine, unspecified formulation Kadeem Ambrosio MD Work Phone: [facility] Work Phone: 07-18-2018 influenza, injectabl e, quadrivalent, contains preservative Kadeemnora Ambrosio [place] 07-18-2018 influenza, seasonal, injectable Kristen Urias MD Work Phone: [facility] 08-20-2017 influenza, high dose seasonal, preservative-free Kadeem Ambrosio MD Work Phone: [facility] Work Phone: 04-01-2017 pneumococcal conjuga te vaccine, 13 valent [facility] [place] 04-01-2017 tetanus toxoid, redu debi diphtheria toxoid, and acellular pertussis vaccine, adsorbed [facility] 09-09-2016 Influenza Vaccine, unspecified formulation [facility] [place] 09-09-2016 influenza virus vacc ine, unspecified formulation Kadeem Ambrosio MD Work Phone: [facility] Work Phone: 09-09-2016 influenza, seasonal, injectable Kristen Urias MD Work Phone: [facility] 07-25-2015 Influenza Vaccine, unspecified formulation [facility] 07-25-2015 influenza virus vacc ine, unspecified formulation Kadeem Ambrosio MD Work Phone: [facility] Work Phone: 07-25-2015 influenza, seasonal, injectable Kristen Urias MD Work Phone: [facility] 05-11-2015 tuberculin skin test ; purified protein derivative solution, intradermal Kristen Urias MD Work Phone: [facility] 08-09-2014 Influenza Vaccine, unspecified formulation Kadeem Ambrosio MD Work Phone: [facility] Work Phone: 08-09-2014 influenza virus vacc ine, unspecified formulation [facility] [place] 08-09-2014 influenza, seasonal, injectable Kristen Urias MD Work Phone: [facility] 08-09-2014 tetanus toxoid, redu debi diphtheria toxoid, and acellular pertussis vaccine, adsorbed Kadeem Ambrosio MD Work Phone: [facility] Work Phone: 08-05-2012 influenza virus vacc ine, unspecified formulation [facility] [place] 08-05-2012 influenza virus vacc ine, whole virus Kadeem Ambrosio MD Work Phone: [facility] Work Phone: 08-13-2011 influenza virus vacc ine, unspecified formulation [facility] [place] 08-13-2011 influenza virus vacc ine, whole virus Kadeem Ambrosio MD Work Phone: [facility] Work Phone: 08-03-2010 Influenza Vaccine, unspecified formulation [facility] 08-03-2010 influenza virus vacc ine, unspecified formulation Kadeem Ambrosio MD Work Phone: [facility] Work Phone: 08-03-2010 influenza, seasonal, injectable Kristen Urias MD Work Phone: [facility] 06-25-2010 zoster vaccine, live [facility] 12-16-2009 novel influenza-H1N1 -09, preservative-free, injectable Kadeem Ambrosio MD Work Phone: [facility] Work Phone: 09-05-2009 influenza virus vacc ine, whole virus Kadeem Ambrosio MD Work Phone: [facility] Work Phone: 10-25-2007 Influenza Vaccine, unspecified formulation [facility] 10-25-2007 influenza virus vacc romana, unspecified formulation Kadeem Ambrosio MD Work Phone: [facility] Work Phone: 10-25-2007 influenza, seasonal, injectable Kristen Urias MD Work Phone: [facility] 08-06-2006 pneumococcal polysaccharide vaccine, 23 valent [facility] 05-25-2003 tetanus toxoid, adsorbed Fortino Ambrosio MD Work Phone: [facility] Work Phone: 05-25-2003 tetanus toxoid, unspecified formulation [facility] [place] Payers Date Payer Category Payer Self-pay 2021 Medicare [facility] [id number] 2016 Medicare [id number] 2015 Medicare [id number] 2015 Medicare [employer] [facility]AGE xxxxxxxxxxx 2015-Present [phone] [address] [place] [address] xxxxxxxxxxx [id number] 2015 Medicare [id number] 1940 Unknown [id number] 1940 Unknown [id number] 1940 Unknown [id number] 1940 Unknown [id number] Unknown Unknown [id number] Unknown [id number] Unknown [id number] Social History Date Type Detail Facility Start: 07-05-2019 End: 06-06-2024 Tobacco smoking status NHIS Former smoker [facility] Start: 06-24-1967 End: 06-24-1977 History of tobacco use Current smoker [place], [place] Start: 06-24-1967 End: 06-24-1977 History of tobacco use Cigarette Smoker [place] Start: 07-05-2019 End: 10-02-2024 Alcohol intake Yes [facility] Start: 06-28-2019 Alcohol Comment once monthly [facility] [place], [place] Start: 1940 Sex Assigned At Not on file M [place], [place] Start: 11-17-2019 End: 08-02-2025 Alcohol intake Current drinker of alcohol (finding) [facility] Work Phone: Start: 02-26-2020 End: 06-06-2024 Tobacco use and exposure Never used [place], [place] Start: 06-15-2022 End: 06-29-2023 Exposure to SARS-CoV-2 (event) Not sure [place] Start: 05-21-2020 End: 02-03-2023 History SDOH Alcohol Frequency 3 [facility] Start: 05-21-2020 End: 02-03-2023 History SDOH Alcohol Std Drinks 1 [facility] Start: 11-10-2016 Alcohol Comment at times [facility] Start: 01-31-2021 End: 02-03-2023 History SDOH Alcohol Frequency 2 [facility] Work Phone: Start: 01-31-2021 End: 02-03-2023 History SDOH Financial 5 [facility] Work Phone: Start: 12-09-2021 History SDOH Alcohol Comment rarely [facility] Start: 1940 Sex Assigned At Male [facility] Start: 02-03-2023 History SDOH Social Connections Get Together 4 [facility] Start: 02-03-2023 End: 10-02-2024 History of Social function [facility] Within the last year , have you been afraid of your partner or ex-partner? No [facility] Do you belong to any clubs or organizations such as mosque groups, unions, fraternal or athletic groups, or school groups? Yes [facility] Are you now , , , , never or living with a partner? [facility] How often to you hav e a drink containing alcohol? Monthly or less [facility] How many standard dr inks containing alcohol do you have on a typical day? 1 or 2 [facility] How often do you hav e 6 or more drinks on 1 occasion? Never [facility] How hard is it for y ou to pay for the very basics like food, housing, medical care, and heating Not hard at all [facility] Do you feel stress - tense, restless, nervous, or anxious, or unable to sleep at night because your mind is troubled all the time - these days [OSQ] Not at all [facility] (I/We) worried wheth er (my/our) food would run out before (I/we) got money to buy more. Never true [facility] How often to you hav e a drink containing alcohol? 2-4 times a month [facility] Start: 05-20-2021 Gender identity Identifies as male gender (finding) [facility] Start: 05-25-2022 Sex Male (finding) [facility] Clinical Notes 05-18-2017 to 08-02-2025 Kristen Urias MD - 08/02/2025 1:00 PM Daniel Aggarwal RN - 08/02/2025 11:00 AM Donnell King MA - 07/03/2025 11:40 AM Ady Ching MD - 07/03/2025 11:40 AM EDTPatient Instructions Note Date & Type Note Facility 08-02-2025 History of Present illness Narrative Images from the original note were not included. Patient ID: Izabela London is a 85 y.o. male. HPI Tolerating Zytiga well. No hot flashes. he has the following oncology history 1. 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 2. S/p REPOCH chemotherapy with IT methotrexate. IT MTX started with cycle 3 and was given on day [address] scan post treatment and BMBx showed no evidence of disease hence CR. 4. Metastatic prostate cancer diagnosed Oct 2019. Metastatic sites involve bone. Under the care of Dr. Sarmiento and was getting GnRH agonist. Initially he got Lupron and then was started on Zoladex. 5. Due to rising PSA in spite of low testosterone, started on Xtandi 160 mg p.o. daily March 2021. 6. Progression of disease March 2025. Started on Zytiga 1000 mg p.o. daily plus prednisone. Review of Systems - Oncology No nausea, vomiting, diarrhea, fever, night sweats, chills, cough, shortness of breath, chest pain BSA: There is no height or weight on file to calculate BSA. There were no vitals taken for this visit. Physical Exam No lymphadenopathy or hepatosplenomegaly. No lower extremity edema. Lab Results Component Value Date WBC 11.0 (H) 08/02/2025 HGB 14.3 08/02/2025 HCT 44.6 08/02/2025 MCV 102.1 (H) 08/02/2025 PLT 224 08/02/2025 Lab Results Component Value Date GLUCOSE 96 08/02/2025 CALCIUM 9.0 08/02/2025 NA 144 08/02/2025 K 3.9 08/02/2025 CO2 28 08/02/2025 CL 108 (H) 08/02/2025 BUN 15 08/02/2025 CREATININE 0.63 (L) 08/02/2025 PSA Total (Diagnostic Post-Prostatectomy) Order: [id number] Status: Final result Next appt: None Dx: Malignant neoplasm metastatic to bone... Test Result Released: Yes (seen) 0 Result Notes Component Ref Range & Units 1 mo ago 3 mo ago 5 mo ago 8 mo ago 11 mo ago PSA Total <=0.200 ng/mL 7.253 High 9.250 High 8.814 High 5.100 High 1.608 R Resulting Agency [facility] SAC SAC SAC SAC Narrative Performed by: SAC Testing performed on the [employer] using a two-step chemiluminescent microparticle immunoassay method. Results obtained by different methods should not be used interchangeably. A prostate specific antigen of >0.2 ng/mL is considered as initial evidence of biochemical recurrence following radical prostatectomy. Assessment/Plan he appears to be in complete remission from Burkitt's Lymphoma standpoint. 2. Metastatic prostate cancer to the bones continue Zytiga 1000 mg p.o. daily plus prednisone 5 mg p.o. twice daily Discussed some of the side effects that include hot flashes, hypertension, hypokalemia among others. He will get formal teaching for the above. PSA improved since starting Zytiga continue Zoladex 10.8mg depot every 12 weeks Discussed some of the side effects that include hot flashes, back pain, very low risk of seizures among others. We will touch base after bone scan and proceed accordingly. Median duration of response with xtandi is 15 months Continue Zometa every 12 weeks. I did discuss risk of osteonecrosis of the jaw which is 1 to 2% in patients receiving Zometa 3. Follow-up in 2-3 months. Check CBC, CMP and PSA at that visit. Follow-up labs from today 4. Patient verbalizes understanding and agrees with the plan. There are no diagnoses linked to this encounter. Plan as of 08/02/25 documented in this encounter [facility] 08-02-2025 History of Present illness Narrative Patient arrived ambulatory with walker for every 12 week Zometa and Zoladex. Patient denies any hip, groin or jaw pain. Patient denies any recent dental procedures. Patient denies any other new or worsening symptoms today. See toxicity assessment. Per patient, Dr. Urias is wanting PSA and CBC studies collected today. PIV placed in R AC and CBC/CMP/PSA studies collected and sent to [facility]. POC reviewed and patient verbalized understanding. Patient has no further questions at this time. Patient tolerated infusion with no noted complications. PIV removed intact and site benign. Zoladex inserted in LLQ of abdomen and site benign. Patient verbalized understanding of discharge plan and follow-up care. Patient discharged home ambulatory. documented in this encounter [facility] 07-03-2025 History of Present illness Narrative Flu shot Patient was offered the flu vaccination at their visit today and Patient accepted. PCP Notified. Immunizations Given Immunizations never marked as reviewed Influenza, adjuvanted, trivalent, preservative-free [last edited by Jessy King MA on 07/03/2025 1157] Given by: Jessy King MA Date: 07/03/2025 Dose: 0.5 mL Site: Left arm Route: Intramuscular [facility]: [id number] CVX code: 168 VIS Publish Date: 11/24/2024 Product: Fluad [employer]: [employer] Lot number: [id number] Expiration date: 03/24/2026 Questionnaire Question Answer VIS Presented Date 07/03/2025 Images from the original note were not included. [facility] - [address] [facility] [id number] Izabela London is a 85 y.o. male who presents for Toe Pain (Right//) Assessment/Plan 1. Ingrown nail of great toe of right foot (L60.0) - acute, worsening - Visible irritation and drainage noted on examination - Prescribed antibiotic to be taken twice a day for 10 days - Patient instructed to discontinue calcium supplement while taking the antibiotic due to potential absorption interference - Referral to data software engineer recommended - Patient advised to drink plenty of water and report any fever, chills, or worsening symptoms - Follow-up with data software engineer to be scheduled Other Clinical Considerations: - Flu Vaccine: - Flu vaccine to be administered during this visit - Medication Management: - Patient to pickling solution maker new antibiotic prescription at [facility] pharmacy on [address] in [place] - Fall Prevention: - Patient uses Rollator when going out - No recent falls reported - Direct Support Worker Referral: - Exploring options for data software engineer closer to patient's home in [place] - Considering options in [facility], or [place] - Preference for provider accepting [facility] insurance Izabela was seen today for toe pain. Diagnoses and all orders for this visit: Ingrown nail of great toe of right foot (Primary) - Flu vaccine (FLUAD), trivalent, adjuvanted, preservative-free (ages 65+) - doxycycline (Monodox) 100 MG capsule; Take 1 capsule (100 mg) by mouth 2 times daily for 10 days. Take with at least 8 ounces (large glass) of water, do not lie down for 30 minutes after - [facility]; Future Flu vaccine today Don't take calcium while taking the Doxycycline antibiotic. Schedule with podiatry. Call if new, persistent or worsening symptoms. Jeramie Ching MD Subjective History of Present Illness Izabela London, an 85-year-old male, presents with irritation on his toe that began on Wednesday or of last week. The patient reports drainage from the right hand corner of the affected area. He has experienced a similar problem once before, which he thought was an ingrown nail. The patient denies any fever or chills. He has never seen a data software engineer before. Mr. London reports an allergy to Amoxicillin, which previously resulted in a 4-5 day hospitalization. He currently takes a calcium supplement. The patient uses a Rollator when going out but not at home and reports no recent falls. I obtained verbal consent from the patient and/or patient's guardian to use ambient listening technology during this encounter before the ambient technology was engaged. Review of Systems Constitutional: Negative for chills, fatigue and fever. Neurological: Negative for weakness. Objective BP 126/87 (BP Location: Left arm, Patient Position: Sitting, BP Cuff Size: Adult) Pulse 102 Temp 36.4 C (97.5 F) (Temporal) Ht 5' 10 (1.778 m) Wt 204 lb 6.4 oz (92.7 kg) BMI 29.33 kg/m Physical Exam Vitals and nursing note reviewed. Constitutional: Appearance: Normal appearance. He is overweight. Musculoskeletal: Feet: Neurological: Mental Status: He is alert. Results Jeramie Ching MD documented in this encounter [facility] 07-02-2025 Telephone encounter Note S: Patient called the clinical access center with complaint of right great toe pain, swelling, pus at toenail B: started about 06/28/25. A: Pt complains of pus on the inner right side of toenail. He denies an ingrown toenail. He said most of the toe is swollen. He denies red streak, severe pain, fever. He has been soking his toe in epsom salts. R: appt 07/[address] Ching at 1140 am. Pt advised to bring photo ID, insurance card, medications with them to their visit if possible. Arrive 15 min prior to appt. Home care advice given to patient: ANTIBIOTIC OINTMENT: *soak your toe in warm water 20 min a day, you may add epsom salts * Put a small amount of antibiotic ointment on the wound once a day for 3 days. * You can get this bnwq-yfy-wigwnsb (OTC) at a drugstore. CALL BACK IF: * Red streak over 1 inch * You become worse Covid questions: 1) Current symptoms consistent with Covid -no 2) Pt tested positive for Covid in last 10 days-hasn't taken a test 3) Known exposure to Covid in the last 10 days -no 4)Traveled out of the country in the last 30 days-no Reason for Disposition Wound looks infected (e.g., spreading redness, pus) Finger or toe wound and entire finger or toe swollen Protocols used: Toe Ebiv-SDVJQ-UG, Wound Infection Ljxafdzfi-ZAOAV-DM [facility] 07-02-2025 Miscellaneous Notes S: Patient called the clinical access center with complaint of right great toe pain, swelling, pus at toenail B: started about 06/28/25. A: Pt complains of pus on the inner right side of toenail. He denies an ingrown toenail. He said most of the toe is swollen. He denies red streak, severe pain, fever. He has been soking his toe in epsom salts. R: appt 07/[address] Ching at 1140 am. Pt advised to bring photo ID, insurance card, medications with them to their visit if possible. Arrive 15 min prior to appt. Home care advice given to patient: ANTIBIOTIC OINTMENT: *soak your toe in warm water 20 min a day, you may add epsom salts * Put a small amount of antibiotic ointment on the wound once a day for 3 days. * You can get this egnq-pbv-kdcmdgp (OTC) at a drugstore. CALL BACK IF: * Red streak over 1 inch * You become worse Covid questions: 1) Current symptoms consistent with Covid -no 2) Pt tested positive for Covid in last 10 days-hasn't taken a test 3) Known exposure to Covid in the last 10 days -no 4)Traveled out of the country in the last 30 days-no Reason for Disposition Wound looks infected (e.g., spreading redness, pus) Finger or toe wound and entire finger or toe swollen Protocols used: Toe Nxfj-XKCFI-EX, Wound Infection Sxqlmahqj-JEINR-HH documented in this encounter [facility] 06-04-2025 History of Present illness Narrative Images from the original note were not included. Patient ID: Izabela London is a 85 y.o. male. HPI Tolerating Zytiga well. No hot flashes. he has the following oncology history 1. 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 2. S/p REPOCH chemotherapy with IT methotrexate. IT MTX started with cycle 3 and was given on day [address] scan post treatment and BMBx showed no evidence of disease hence CR. 4. Metastatic prostate cancer diagnosed Oct 2019. Metastatic sites involve bone. Under the care of Dr. Sarmiento and was getting GnRH agonist. Initially he got Lupron and then was started on Zoladex. 5. Due to rising PSA in spite of low testosterone, started on Xtandi 160 mg p.o. daily March 2021. 6. Progression of disease March 2025. Started on Zytiga 1000 mg p.o. daily plus prednisone. Review of Systems - Oncology No nausea, vomiting, diarrhea, fever, night sweats, chills, cough, shortness of breath, chest pain BSA: 2.15 meters squared BP 138/77 Pulse 79 Temp 36.3 C (97.3 F) (Temporal) Ht 1.778 m (5' 10) Wt 93.4 kg (206 lb) SpO2 98% BMI 29.56 kg/m Physical Exam No lymphadenopathy or hepatosplenomegaly. No lower extremity edema. Lab Results Component Value Date WBC 9.1 04/09/2025 HGB 13.9 04/09/2025 HCT 43.5 04/09/2025 MCV 101.9 (H) 04/09/2025 PLT 237 04/09/2025 Lab Results Component Value Date GLUCOSE 101 05/10/2025 CALCIUM 9.9 05/10/2025 NA 138 05/10/2025 K 4.1 05/10/2025 CO2 28 05/10/2025 CL 103 05/10/2025 BUN 21 05/10/2025 CREATININE 0.66 (L) 05/10/2025 PSA Total (Diagnostic Post-Prostatectomy) Order: [id number] Status: Final result Next appt: 08/02/2025 at 11:00 AM in Infusion Therapy (CHAIR 19) Dx: Malignant neoplasm metastatic to bone... Test Result Released: Yes (seen) 0 Result Notes Component Ref Range & Units 1 mo ago 3 mo ago 6 mo ago 9 mo ago PSA Total <=0.200 ng/mL 9.250 High 8.814 High 5.100 High 1.608 R Resulting Agency [facility] Assessment/Plan he appears to be in complete remission from Burkitt's Lymphoma standpoint. 2. Metastatic prostate cancer to the bones continue Zytiga 1000 mg p.o. daily plus prednisone 5 mg p.o. twice daily Discussed some of the side effects that include hot flashes, hypertension, hypokalemia among others. He will get formal teaching for the above. PSA relatively steady since starting Zytiga continue Zoladex 10.8mg depot every 12 weeks Discussed some of the side effects that include hot flashes, back pain, very low risk of seizures among others. We will touch base after bone scan and proceed accordingly. Median duration of response with xtandi is 15 months Continue Zometa every 12 weeks. I did discuss risk of osteonecrosis of the jaw which is 1 to 2% in patients receiving Zometa 3. Follow-up in 2 months. Check CBC, CMP and PSA at that visit. Follow-up labs from today 4. Patient verbalizes understanding and agrees with the plan. There are no diagnoses linked to this encounter. Plan as of 06/04/25 Patient here to see Dr. Urias 1-Lav, 2-5ml SST drawn from R arm, 1 stick. Labs sent to [facility]. documented in this encounter [facility] 05-10-2025 History of Present illness Narrative Patient arrived ambulatory for Zometa infusion and Zoladex injection. Patient denies any new or worsening symptoms today. Patient continues to have ankle swelling bilaterally but denies worsening at this time. See toxicity assessment. Patient requests ice pack to numb abdomen prior to Zoladex injection instead of Lidocaine. PIV placed in R AC and CMP study collected and sent to [facility]. POC reviewed and patient verbalized understanding. Patient has no further questions at this time. Patient tolerated injection with no noted complications. Given in RLQ of abdomen. Site bleeding, gauze placed on site. LFTs noted to be elevated today, Dr. Urias notified. Patient tolerated Zometa injection with no noted complications. PIV removed intact and site benign. Patient verbalized understanding of discharge plan and follow-up care. Patient discharged home ambulatory with . documented in this encounter [facility] 05-09-2025 Telephone encounter Note S: Patient spoke with [facility] nurse regarding neck pain B: Onset of symptoms/concern a couple of days or maybe Wednesday of last week A: Patient reports right side neck pain which is severe. Intermittent pain that garibay. Mostly in the neck but sometimes goes across shoulder blade. Been taking tylenol and using heat- unsure if it's helping. Never had neck pain like this previously. Denies injuries, headache, chest pain, difficulty breathing, or fever. Pain doesn't radiate down arms. R: Discussed no same day openings today. Would suggest going to Urgent Care today to be seen and evaluated. Patient agreeable, unsure which UC he will go to. Discussed continue heat, tylenol and gently stretching. Patient understands care advice. No further needs at this time. Patient instructed to call back with new/worsening symptoms, concerns or questions. Reason for Disposition SEVERE pain (e.g., excruciating, unable to do any normal activities) Protocols used: Neck Pain or Flrgdumup-[id number]-ZF [facility] 05-09-2025 Miscellaneous Notes S: Patient spoke with [facility] nurse regarding neck pain B: Onset of symptoms/concern a couple of days or maybe Wednesday of last week A: Patient reports right side neck pain which is severe. Intermittent pain that garibay. Mostly in the neck but sometimes goes across shoulder blade. Been taking tylenol and using heat- unsure if it's helping. Never had neck pain like this previously. Denies injuries, headache, chest pain, difficulty breathing, or fever. Pain doesn't radiate down arms. R: Discussed no same day openings today. Would suggest going to Urgent Care today to be seen and evaluated. Patient agreeable, unsure which UC he will go to. Discussed continue heat, tylenol and gently stretching. Patient understands care advice. No further needs at this time. Patient instructed to call back with new/worsening symptoms, concerns or questions. Reason for Disposition SEVERE pain (e.g., excruciating, unable to do any normal activities) Protocols used: Neck Pain or [id number] documented in this encounter [facility] 04-09-2025 History of Present illness Narrative Patient ID: Izabela London is a 85 y.o. male. HPI Tolerating Zytiga well. No hot flashes. he has the following oncology history 1. 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 2. S/p REPOCH chemotherapy with IT methotrexate. IT MTX started with cycle 3 and was given on day [address]. [address] scan post treatment and BMBx showed no evidence of disease hence CR. 4. Metastatic prostate cancer diagnosed Oct 2019. Metastatic sites involve bone. Under the care of Dr. Sarmiento and was getting GnRH agonist. Initially he got Lupron and then was started on Zoladex. 5. Due to rising PSA in spite of low testosterone, started on Xtandi 160 mg p.o. daily March 2021. Review of Systems - Oncology No nausea, vomiting, diarrhea, fever, night sweats, chills, cough, shortness of breath, chest pain BSA: 2.12 meters squared BP 131/70 Pulse 58 Temp 36.4 C (97.5 F) (Temporal) Ht 1.803 m (5' 10.98) Wt 89.9 kg (198 lb 4.8 oz) SpO2 98% BMI 27.67 kg/m Physical Exam No lymphadenopathy or hepatosplenomegaly. No lower extremity edema. Lab Results Component Value Date WBC 8.4 02/13/2025 HGB 14.0 02/13/2025 HCT 41.5 02/13/2025 MCV 96.1 02/13/2025 PLT 219 02/13/2025 Lab Results Component Value Date GLUCOSE 105 02/13/2025 CALCIUM 9.2 02/13/2025 NA 136 02/13/2025 K 4.2 02/13/2025 CO2 21 (L) 02/13/2025 CL 106 02/13/2025 BUN 19 02/13/2025 CREATININE 0.63 (L) 02/13/2025 PSA 02/13/2025: 8.8 Assessment/Plan he appears to be in complete remission from Burkitt's Lymphoma standpoint. 2. Metastatic prostate cancer to the bones continue Zytiga 1000 mg p.o. daily plus prednisone 5 mg p.o. twice daily Discussed some of the side effects that include hot flashes, hypertension, hypokalemia among others. He will get formal teaching for the above. continue Zoladex 10.8mg depot every 12 weeks Discussed some of the side effects that include hot flashes, back pain, very low risk of seizures among others. We will touch base after bone scan and proceed accordingly. Median duration of response with xtandi is 15 months Continue Zometa every 12 weeks. I did discuss risk of osteonecrosis of the jaw which is 1 to 2% in patients receiving Zometa 3. Follow-up in 2 months. Check CBC, CMP and PSA at that visit. Follow-up labs from today 4. Patient verbalizes understanding and agrees with the plan. There are no diagnoses linked to this encounter. Plan as of 04/09/25 Electronically signed Kristen Urias MD I spent total time 45 minutes reviewing previous notes, test results, and face to face with the patient discussing the diagnosis and importance of compliance with the treatment plan as well as documenting on the day of the visit. Patient seen by Dr Urias Labs drawn 1 stick left arm 1 lav 2 sst All labs sent to [facility] documented in this encounter [facility] 04-02-2025 Telephone encounter Note [facility] Oncology Care Plan Abiraterone Acetate 250 MG Pharmacy Recommendations/Education/Other I spoke with Izabela today regarding abiraterone + prednisone. He reports that he is doing well. Denies all side effects or concerns. No missed doses reported. Continuation of therapy is appropriate. Delivery scheduled for 04/04/25. F/U ~ 1 month or as clinically indicated Kevyn ReneD, BCPS Clinical Specialty Pharmacist [phone] [facility] 04-02-2025 Miscellaneous Notes [facility] Oncology Care Plan Abiraterone Acetate 250 MG Pharmacy Recommendations/Education/Other I spoke with Izabela today regarding abiraterone + prednisone. He reports that he is doing well. Denies all side effects or concerns. No missed doses reported. Continuation of therapy is appropriate. Delivery scheduled for 04/04/25. F/U ~ 1 month or as clinically indicated Bhanu Diaz PharmD, [facility] Clinical Specialty Pharmacist [facility] Oncology Care Plan Abiraterone Acetate 250 MG Pharmacy Recommendations/Education/Other I spoke with Izabela today regarding abiraterone + prednisone. He reports that he is doing well. Denies all side effects or concerns. No missed doses reported. Continuation of therapy is appropriate. F/U ~ 2 weeks for refill & check-in [facility]hanu Diaz PharmD, [facility] Clinical Specialty Pharmacist documented in this encounter [facility] 03-16-2025 Telephone encounter Note [facility] Oncology Care Plan Abiraterone Acetate 250 MG Pharmacy Recommendations/Education/Other I spoke with Izabela today regarding abiraterone + prednisone. He reports that he is doing well. Denies all side effects or concerns. No missed doses reported. Continuation of therapy is appropriate. F/U ~ 2 weeks for refill & check-in Bhanu Diaz PharmD, [facility] Clinical Specialty Pharmacist [facility] 03-06-2025 Telephone encounter Note [facility] Oncology Care Plan SUBJECTIVE Izabela London is a 85 year old Male who was referred to [facility] for clinical management services for Abiraterone Acetate 250 MG. Diagnosis Malignant neoplasm of prostate C61 OBJECTIVE Medications: Abiraterone Acetate 250 MG TABS PO Ascorbic Acid 500 MG TABS PO Aspirin 81 MG CHEW PO Carvedilol 3.125 MG TABS PO Flomax 0.4 MG CAPS PO Lisinopril 10 MG TABS PO Os-Preeti Calcium + D3 500-200 MG-UNIT TABS PO PredniSONE 5 MG TABS PO Simvastatin 20 MG TABS PO Vitamin D3 5000 UNIT CAPS PO Supportive Medications: Blood Pressure Monitor for Abiraterone Acetate 250 MG GnRH Agent for Abiraterone Acetate 250 MG Prednisone for Abiraterone Acetate 250 MG Allergies: No Known Allergies Medical History & Comorbidities: Problem list has been reviewed in the EHR ASSESSMENT / PLAN Abiraterone Acetate 250 MG Expectations and Goals of therapy Counseled patient that goals of therapy include prostate cancer control, PSA suppression, and symptom management. Disease state education Counseled on general disease state management strategies. Emphasized the importance of consistent adherence to prescribed medication in order to achieve treatment goals. Administration Self administered at home oral medication. Patient will start abiraterone (Zytiga) take 4 tablets (1000mg) by mouth one time daily with prednisone 5mg by mouth twice daily. Patient understands that abiraterone dose is to be taken all at once, around the same time each day on an empty stomach (1 hour prior to or 2 hours after a meal). Prednisone is to be taken with breakfast and lunch to prevent insomnia and gastric upset side effects. Izabela understands and is comfortable with administration directions. No barriers to therapy identified. Storage/Disposal Store at 20 C to 25 C (68 F to 77 F). Store in a dry place. Keep medications in a safe place, out of reach of children and pets. Side effects Common side effects reviewed. For Abiraterone: fatigue, joint pain, edema, increased triglycerides, changes in liver function, elevated blood sugars, low potassium, decreased WBC, hot flashes, high blood pressure, nausea, constipation, and diarrhea. For Prednisone: insomnia, upset stomach, high blood pressure, elevated blood sugars, headache, mood swings, and water retention. Live vaccines should NOT be administered during chemotherapy or periods of significant immunosuppression. Patient aware of side effects. Educated that fatigue typically peaks around the 1-2 month joshua and starts to improve around the 3 month joshua. Has a BP cuff at home. Instructed him to check periodically and to call if BP > 180/90 . He voiced understanding. Contact Advised patient to contact pharmacy or provider with any concerns regarding side effects, questions regarding therapy, or any other situation where clinical oversight is necessary. Provided patient with direct number to clinical pharmacist for questions or concerns prior to scheduled follow up. The patient was oriented to the pharmacy s services upon initial fill. Encouraged patient to participate in this plan of care by speaking with a pharmacist which is offered during each reassessment. Adherence Advised patient of the importance of taking this medication as prescribed and to avoid missing any doses. Counseled patient that if a dose is missed, the patient should not take the missed dose but should wait until the next day for the normal dose. Do not take 2 doses at the same time. Monitoring and follow up Reviewed therapy monitoring parameters and importance to maintain follow-up lab and provider visits. Labs to be monitored routinely for side effects and efficacy include LFTs and PSA. Pharmacy Recommendations/Education/Other Initiation of therapy is appropriate. Medications, allergies, health conditions, and appropriate vaccinations reviewed. No additional questions at this time. Patient is agreeable to care plan. [facility] will continue to manage clinical pharmacy services and coordinate refills/deliveries with the patient. Delivery is scheduled for 03/08/25. Planned start date 03/09/25. F/U 1 week after therapy start Bhanu Diaz PharmD, [facility] Clinical Specialty Pharmacist [facility] 03-06-2025 Miscellaneous Notes [facility] Oncology Care Plan SUBJECTIVE Izabela London is a 85 year old Male who was referred to [facility] for clinical management services for Abiraterone Acetate 250 MG. Diagnosis Malignant neoplasm of prostate C61 OBJECTIVE Medications: Abiraterone Acetate 250 MG TABS PO Ascorbic Acid 500 MG TABS PO Aspirin 81 MG CHEW PO Carvedilol 3.125 MG TABS PO Flomax 0.4 MG CAPS PO Lisinopril 10 MG TABS PO Os-Preeti Calcium + D3 500-200 MG-UNIT TABS PO PredniSONE 5 MG TABS PO Simvastatin 20 MG TABS PO Vitamin D3 5000 UNIT CAPS PO Supportive Medications: Blood Pressure Monitor for Abiraterone Acetate 250 MG GnRH Agent for Abiraterone Acetate 250 MG Prednisone for Abiraterone Acetate 250 MG Allergies: No Known Allergies Medical History & Comorbidities: Problem list has been reviewed in the EHR ASSESSMENT / PLAN Abiraterone Acetate 250 MG Expectations and Goals of therapy Counseled patient that goals of therapy include prostate cancer control, PSA suppression, and symptom management. Disease state education Counseled on general disease state management strategies. Emphasized the importance of consistent adherence to prescribed medication in order to achieve treatment goals. Administration Self administered at home oral medication. Patient will start abiraterone (Zytiga) take 4 tablets (1000mg) by mouth one time daily with prednisone 5mg by mouth twice daily. Patient understands that abiraterone dose is to be taken all at once, around the same time each day on an empty stomach (1 hour prior to or 2 hours after a meal). Prednisone is to be taken with breakfast and lunch to prevent insomnia and gastric upset side effects. Izabela understands and is comfortable with administration directions. No barriers to therapy identified. Storage/Disposal Store at 20 C to 25 C (68 F to 77 F). Store in a dry place. Keep medications in a safe place, out of reach of children and pets. Side effects Common side effects reviewed. For Abiraterone: fatigue, joint pain, edema, increased triglycerides, changes in liver function, elevated blood sugars, low potassium, decreased WBC, hot flashes, high blood pressure, nausea, constipation, and diarrhea. For Prednisone: insomnia, upset stomach, high blood pressure, elevated blood sugars, headache, mood swings, and water retention. Live vaccines should NOT be administered during chemotherapy or periods of significant immunosuppression. Patient aware of side effects. Educated that fatigue typically peaks around the 1-2 month joshua and starts to improve around the 3 month joshua. Has a BP cuff at home. Instructed him to check periodically and to call if BP > 180/90 . He voiced understanding. Contact Advised patient to contact pharmacy or provider with any concerns regarding side effects, questions regarding therapy, or any other situation where clinical oversight is necessary. Provided patient with direct number to clinical pharmacist for questions or concerns prior to scheduled follow up. The patient was oriented to the pharmacy s services upon initial fill. Encouraged patient to participate in this plan of care by speaking with a pharmacist which is offered during each reassessment. Adherence Advised patient of the importance of taking this medication as prescribed and to avoid missing any doses. Counseled patient that if a dose is missed, the patient should not take the missed dose but should wait until the next day for the normal dose. Do not take 2 doses at the same time. Monitoring and follow up Reviewed therapy monitoring parameters and importance to maintain follow-up lab and provider visits. Labs to be monitored routinely for side effects and efficacy include LFTs and PSA. Pharmacy Recommendations/Education/Other Initiation of therapy is appropriate. Medications, allergies, health conditions, and appropriate vaccinations reviewed. No additional questions at this time. Patient is agreeable to care plan. [facility] will [facility] to manage clinical pharmacy services and coordinate refills/deliveries with the patient. Delivery is scheduled for 03/08/25. Planned start date 03/09/25. F/U 1 week after therapy start Bhanu Diaz PharmD, [facility] Clinical Specialty Pharmacist documented in this encounter [facility] 03-05-2025 History of Present illness Narrative Patient ID: Izabela London is a 85 y.o. male. HPI Tolerating Xtandi well. No hot flashes, seizures or back pain. he has the following oncology history 1. 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 2. S/p REPOCH chemotherapy with IT methotrexate. IT MTX started with cycle 3 and was given on day [address] scan post treatment and BMBx showed no evidence of disease hence CR. 4. Metastatic prostate cancer diagnosed Oct 2019. Metastatic sites involve bone. Under the care of Dr. Sarmiento and was getting GnRH agonist. Initially he got Lupron and then was started on Zoladex. 5. Due to rising PSA in spite of low testosterone, started on Xtandi 160 mg p.o. daily March 2021. Review of Systems - Oncology No nausea, vomiting, diarrhea, fever, night sweats, chills, cough, shortness of breath, chest pain BSA: 2.14 meters squared BP 138/70 Pulse 65 Temp 36.2 C (97.2 F) (Temporal) Ht 1.803 m (5' 10.98) Wt 91.1 kg (200 lb 14.4 oz) SpO2 98% BMI 28.04 kg/m Physical Exam No lymphadenopathy or hepatosplenomegaly. No lower extremity edema. Lab Results Component Value Date WBC 8.4 02/13/2025 HGB 14.0 02/13/2025 HCT 41.5 02/13/2025 MCV 96.1 02/13/2025 PLT 219 02/13/2025 Lab Results Component Value Date GLUCOSE 105 02/13/2025 CALCIUM 9.2 02/13/2025 NA 136 02/13/2025 K 4.2 02/13/2025 CO2 21 (L) 02/13/2025 CL 106 02/13/2025 BUN 19 02/13/2025 CREATININE 0.63 (L) 02/13/2025 Bone scan IMPRESSION: INTERVAL DEVELOPMENT OF INCREASED ACTIVITY ATTENTION THORAX, LEFT AND RIGHT RIBS. IN THE GIVEN SETTING FOLLOW-UP OR FURTHER EVALUATION IS RECOMMENDED. CONSIDER FOLLOW-UP BONE SCAN IN 3-6 MONTHS, PSMA PET/CT. Report Dictated on Electronically Signed By: Izabela Rose MD Electronically Signed Date/Time: 02/23/2025 2:12 PM EDT Narrative Performed by: [facility] Testing performed on the [employer] using a two-step chemiluminescent microparticle immunoassay method. Results obtained by different methods should not be used interchangeably. A prostate specific antigen of >0.2 ng/mL is considered as initial evidence of biochemical recurrence following radical prostatectomy. Specimen Collected: 11/21/24 11:17 Result Notes 1 Follow-up Encounter Component Ref Range & Units 2 wk ago 3 mo ago 6 mo ago PSA Total <=0.200 ng/mL 8.814 High 5.100 High 1.608 R Resulting Agency [facility] SAC SAC Narrative Performed by: [facility] Testing performed on the [employer] using a two-step chemiluminescent microparticle immunoassay method. Results obtained by different methods should not be used interchangeably. A prostate specific antigen of >0.2 ng/mL is considered as initial evidence of biochemical recurrence following radical prostatectomy. Specimen Collected: 02/13/25 11:15 Last Resulted: 02/13/25 12:07 Assessment/Plan he appears to be in complete remission from Burkitt's Lymphoma standpoint. 2. Rising PSA in the setting of GnRH agonist in spite of castrate levels of testosterone. Due to rising PSA and new lesions on bone scan-considered as progression of disease. DC Xtandi Start Zytiga 1000 mg p.o. daily plus prednisone 5 mg p.o. twice daily Discussed some of the side effects that include hot flashes, hypertension, hypokalemia among others. He will get formal teaching for the above. continue Zoladex 10.8mg depot every 12 weeks Discussed some of the side effects that include hot flashes, back pain, very low risk of seizures among others. We will touch base after bone scan and proceed accordingly. Median duration of response with xtandi is 15 months Continue Zometa every 12 weeks. I did discuss risk of osteonecrosis of the jaw which is 1 to 2% in patients receiving Zometa 3. Follow-up in 4 to 6 weeks. Check CBC, CMP and PSA at that visit. I have counseled him on diet and exercise. I have also mentioned to him about him being further down his journey of prostate cancer now that he has progression of disease with Xtandi. Thankfully, we still have Zytiga as an option. However after that it is mainly chemo or radioisotope therapy which is a little bit more challenging to tolerate than hormonal therapy. 4. Patient verbalizes understanding and agrees with the plan. There are no diagnoses linked to this encounter. Plan as of 03/05/15 Electronically signed Kristen Urias MD I spent total time 45 minutes reviewing previous notes, test results, and face to face with the patient discussing the diagnosis and importance of compliance with the treatment plan as well as documenting on the day of the visit. Chemotherapy teaching completed with patient and his Lori for Zytiga 1000 mg PO daily along with Prednisone 5 mg twice daily per Dr. Urias. Written information on Zytiga given to patient and discussed with him. Reviewed with patient to take the Zytiga at the same time every day on an empty stomach - at least 1 hour before a meal or 2 hours after a meal. Side effects including, but not limited to: nausea, hot flashes, bone/muscle pain, electrolyte imbalance, flu like symptoms, constipation, and etc discussed with patient and he voiced understanding. Reviewed with patient that the Zytiga will come from [facility] as he had been using for previous treatment. The pt would like the Prednisone to be sent to [facility] if possible as well. Discussed importance of adherence to oral chemotherapy. Reviewed barriers that could affect oral adherence, including financial, psychosocial and physical and have referred to appropriate supportive care service, if indicated. Will integrate specialty pharmacy services to also assist with oral chemotherapy management. Per Dr. Urias the pt is to continue with Zoladex and Zometa every 12 weeks. Next appt is 05/10/25. Reviewed with pt to stop taking the Xtandi per Dr. Urias. Patient agreed to proceed with treatment and signed consent form. Pt declined copy of consent form. documented in this encounter [facility] 02-13-2025 History of Present illness Narrative Pt arrived ambulatory from with Dr. Uriasfor C11 D1 and tx 11 Zometa infusion/Zoladex injection today. Pt notes knee pain is 3/10. CBC/PSA/CMP drawn via PIV and sent to [facility] at [facility]. See toxicity assessment. Pt denies any dental procedures in the past few months and denies any jaw pain/swelling. 1221- Pt tolerated infusion and injection in Q well and without incident. Pt discharged home without complication. Aware of next appt date/time. documented in this encounter [facility] 02-13-2025 History of Present illness Narrative Images from the original note were not included. Patient ID: Izabela London is a 85 y.o. male. HPI Tolerating Xtandi well. No hot flashes, seizures or back pain. he has the following oncology history 1. 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 2. S/p REPOCH chemotherapy with IT methotrexate. IT MTX started with cycle 3 and was given on day [address] scan post treatment and BMBx showed no evidence of disease hence CR. 4. Metastatic prostate cancer diagnosed Oct 2019. Metastatic sites involve bone. Under the care of Dr. Sarmiento and was getting GnRH agonist. Initially he got Lupron and then was started on Zoladex. 5. Due to rising PSA in spite of low testosterone, started on Xtandi 160 mg p.o. daily March 2021. Review of Systems - Oncology No nausea, vomiting, diarrhea, fever, night sweats, chills, cough, shortness of breath, chest pain BSA: 2.12 meters squared BP 127/67 Pulse 62 Temp 36.2 C (97.2 F) (Temporal) Ht 1.803 m (5' 10.98) Wt 89.4 kg (197 lb) SpO2 97% BMI 27.49 kg/m Physical Exam No lymphadenopathy or hepatosplenomegaly. No lower extremity edema. Lab Results Component Value Date WBC 9.2 11/21/2024 HGB 13.4 11/21/2024 HCT 39.6 (L) 11/21/2024 MCV 95.7 11/21/2024 PLT 272 11/21/2024 Lab Results Component Value Date GLUCOSE 104 11/21/2024 CALCIUM 9.5 11/21/2024 NA 138 11/21/2024 K 4.1 11/21/2024 CO2 26 11/21/2024 CL 104 11/21/2024 BUN 17 11/21/2024 CREATININE 0.64 (L) 11/21/2024 ntains abnormal data PSA Total (Diagnostic Post-Prostatectomy) Order: [id number] Status: Final result Visible to patient: Yes (seen) Next appt: Today at 11:00 AM in Infusion Therapy (CHAIR 23) Dx: Malignant neoplasm metastatic to bone... 0 Result Notes Component Ref Range & Units 2 mo ago 5 mo ago PSA Total <=0.200 ng/mL 5.100 High 1.608 R Resulting Agency [facility] SAC Narrative Performed by: [facility] Testing performed on the [employer] using a two-step chemiluminescent microparticle immunoassay method. Results obtained by different methods should not be used interchangeably. A prostate specific antigen of >0.2 ng/mL is considered as initial evidence of biochemical recurrence following radical prostatectomy. Specimen Collected: 11/21/24 11:17 Assessment/Plan he appears to be in complete remission from Burkitt's Lymphoma standpoint. 2. Rising PSA in the setting of GnRH agonist in spite of castrate levels of testosterone. PSA was slightly evaded last time. If elevated today, will need restaging and potential change of treatment. continue Zoladex 10.8mg depot every 12 weeks Continue Xtandi 160 mg p.o. daily. Discussed some of the side effects that include hot flashes, back pain, very low risk of seizures among others. We will touch base after bone scan and proceed accordingly. Median duration of response with xtandi is 15 months Continue Zometa every 12 weeks. I did discuss risk of osteonecrosis of the jaw which is 1 to 2% in patients receiving Zometa 3. I have counseled him on diet and exercise. Patient verbalizes understanding and agrees with the plan. There are no diagnoses linked to this encounter. Plan as of 11/21/24 documented in this encounter [facility] 02-13-2025 History of Present illness Narrative Images from the original note were not included. Patient ID: Izabela London is a 85 y.o. male. HPI Tolerating Xtandi well. No hot flashes, seizures or back pain. he has the following oncology history 1. 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 2. S/p REPOCH chemotherapy with IT methotrexate. IT MTX started with cycle 3 and was given on day [address] scan post treatment and BMBx showed no evidence of disease hence CR. 4. Metastatic prostate cancer diagnosed Oct 2019. Metastatic sites involve bone. Under the care of Dr. Sarmiento and was getting GnRH agonist. Initially he got Lupron and then was started on Zoladex. 5. Due to rising PSA in spite of low testosterone, started on Xtandi 160 mg p.o. daily March 2021. Review of Systems - Oncology No nausea, vomiting, diarrhea, fever, night sweats, chills, cough, shortness of breath, chest pain BSA: 2.12 meters squared BP 127/67 Pulse 62 Temp 36.2 C (97.2 F) (Temporal) Ht 1.803 m (5' 10.98) Wt 89.4 kg (197 lb) SpO2 97% BMI 27.49 kg/m Physical Exam No lymphadenopathy or hepatosplenomegaly. No lower extremity edema. Lab Results Component Value Date WBC 9.2 11/21/2024 HGB 13.4 11/21/2024 HCT 39.6 (L) 11/21/2024 MCV 95.7 11/21/2024 PLT 272 11/21/2024 Lab Results Component Value Date GLUCOSE 104 11/21/2024 CALCIUM 9.5 11/21/2024 NA 138 11/21/2024 K 4.1 11/21/2024 CO2 26 11/21/2024 CL 104 11/21/2024 BUN 17 11/21/2024 CREATININE 0.64 (L) 11/21/2024 ntains abnormal data PSA Total (Diagnostic Post-Prostatectomy) Order: [id number] Status: Final result Visible to patient: Yes (seen) Next appt: Today at 11:00 AM in Infusion Therapy (CHAIR 23) Dx: Malignant neoplasm metastatic to bone... 0 Result Notes Component Ref Range & Units 2 mo ago 5 mo ago PSA Total <=0.200 ng/mL 5.100 High 1.608 R Resulting Agency [facility] SAC Narrative Performed by: SAC Testing performed on the [employer] using a two-step chemiluminescent microparticle immunoassay method. Results obtained by different methods should not be used interchangeably. A prostate specific antigen of >0.2 ng/mL is considered as initial evidence of biochemical recurrence following radical prostatectomy. Specimen Collected: 11/21/24 11:17 Assessment/Plan he appears to be in complete remission from Burkitt's Lymphoma standpoint. 2. Rising PSA in the setting of GnRH agonist in spite of castrate levels of testosterone. PSA was slightly evaded last time. If elevated today, will need restaging and potential change of treatment. continue Zoladex 10.8mg depot every 12 weeks Continue Xtandi 160 mg p.o. daily. Discussed some of the side effects that include hot flashes, back pain, very low risk of seizures among others. We will touch base after bone scan and proceed accordingly. Median duration of response with xtandi is 15 months Continue Zometa every 12 weeks. I did discuss risk of osteonecrosis of the jaw which is 1 to 2% in patients receiving Zometa 3. I have counseled him on diet and exercise. Patient verbalizes understanding and agrees with the plan. There are no diagnoses linked to this encounter. Plan as of 02/14/25 documented in this encounter [facility] 02-13-2025 Miscellaneous Notes Addended by: KRISTEN URIAS on: 02/14/2025 11:44 AM Modules accepted: Orders documented in this encounter [facility] 02-13-2025 Note Addended by: KRISTEN URIAS on: 02/14/2025 11:44 AM Modules accepted: Orders [facility] 02-12-2025 History of Present illness Narrative Images from the original note were not included. [facility] - [address] [facility] [address] Dept: [phone] Dept Chief Complaint: Izabela London is an 85 y.o. male here for an annual wellness visit. Patient presents for annual exam. No new complaint. Hx metastatic prostate CA, followed by oncology, no new pain sx. Being treated with enzalutamide and has follow up tomorrow. No vasomotor sx. 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 Continues to drive. Has home exercises including exercise bicycle. No falls reported. Hx CAD, no angina. Tolerating simvastatin and carvedilol Hx HTN, bp controlled with lisinopril and carvedilol Assessment/Plan : Problem List Items Addressed This Visit Nervous Weakness of both lower extremities Continue home exercises Drug-induced polyneuropathy (HCC) Stable, no new sx Circulatory History of heart artery stent No angina 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 Stable, no new sx Essential hypertension Controlled with current medication Genitourinary Prostate cancer (HCC) Followed by oncology for rising PSA Other Visit Diagnoses Routine general medical examination at health care facility - Primary Annual exam after one year. Jeramie Ching MD I have reviewed and reconciled the medication list with the patient today. Current Outpatient Medications Medication Sig Dispense Refill ascorbic acid (Vitamin C) 500 MG tablet Take 1 tablet (500 mg) by mouth daily. 30 tablet 11 aspirin 81 MG EC tablet Take 81 mg by mouth in the morning. Calcium Carb-Cholecalciferol 500-5 MG-MCG tablet tablet Take 1 tablet by mouth daily. 90 tablet 3 carvedilol (Coreg) 3.125 MG tablet 1 po bid 180 tablet 3 cholecalciferol (Vitamin D-3) 125 MCG (5000 UT) capsule Take 5,000 Units by mouth in the morning. enzalutamide (Xtandi) 40 MG chemo capsule TAKE 4 CAPSULES BY MOUTH DAILY 120 capsule 3 lisinopril 10 MG tablet Take 1 tablet (10 mg) by mouth daily. 90 tablet 3 simvastatin (Zocor) 20 MG tablet TAKE 1 TABLET BY MOUTH EVERY DAY IN THE EVENING 90 tablet 3 tamsulosin (Flomax) 0.4 MG 24 hr capsule TAKE 1 CAPSULE (0.4 MG) BY MOUTH IN THE MORNING AND 1 CAPSULE (0.4 MG) IN THE EVENING. 180 capsule 3 zinc sulfate (Zincate) 220 (50 Zn) MG capsule Take 1 capsule (50 mg of elemental zinc) by mouth daily. 30 capsule 11 albuterol (Ventolin HFA) 108 (90 Base) MCG/ACT inhaler Inhale 2 puffs every 4 hours as needed for wheezing or shortness of breath. (Patient not taking: Reported on 02/12/2025) 8 g 0 No current facility-administered medications for this visit. Also reviewed during this visit: The following health maintenance schedule was reviewed with the patient and provided in printed form in the after visit summary: Health Maintenance Topic Date Due Derm Melanoma Skin Check Never done RSV Immunization for Adults (1 - 1-dose 75+ series) Never done COVID-19 Vaccine ( season) 2024 Depression Screening 02/06/2025 DTaP/Tdap/Td Vaccines (3 - Td or Tdap) 04/01/2027 Lipid Panel 02/27/2029 Medicare Advantage Annual Wellness Visit Completed Influenza Vaccine Completed Pneumococcal Vaccine: 50+ Years Completed Zoster Vaccines Completed RSV Immunization under 20 Months Aged Out HIB Vaccines Aged Out Hepatitis B Vaccines Aged Out IPV Vaccines Aged Out Hepatitis A Vaccines Aged Out Meningococcal Vaccine Aged Out Rotavirus Vaccines Aged Out HPV Vaccines Aged Out List of current healthcare providers: Patient Care Team: Jeramie Ching MD as PCP - General Kristen Urias MD as Consulting Physician (Oncology) Lukas Chavez MD as Consulting Physician (Hematology and Oncology) Regina Dorado, RN as Nurse Navigator (Oncology) No orders of the defined types were placed in this encounter. Review of Systems Physical Exam Vitals and nursing note reviewed. Constitutional: General: He is not in acute distress. Appearance: Normal appearance. He is normal weight. He is not ill-appearing, toxic-appearing or diaphoretic. Neck: Vascular: No carotid bruit. Cardiovascular: Rate and Rhythm: Normal rate and regular rhythm. Heart sounds: Normal heart sounds. No murmur heard. Skin: General: Skin is warm and dry. Coloration: Skin is not pale. Neurological: Mental Status: He is alert. Psychiatric: Mood and Affect: Mood normal. Behavior: Behavior normal. Thought Content: Thought content normal. Judgment: Judgment normal. Objective : BP 130/70 (BP Location: Right arm, Patient Position: Sitting, BP Cuff Size: Adult) Pulse 64 Temp 36.3 C (97.4 F) (Temporal) Ht 5' 10.98 (1.803 m) Wt 196 lb (88.9 kg) SpO2 95% BMI 27.35 kg/m Vision Screening Right eye Left eye Both eyes Without correction With correction 20/20 20/20 20/20 Subjective : Health Risk Assessment: General: General In general, how would you say your health is?: Very good In the past 7 days, have you experienced any of the following: New or Increased Pain, New or Increased Fatigue, Loneliness, Social Isolation, Stress or Anger?: No Do you get the social and emotional suppport you need?: Yes Health Habits/Nutrition: Health Habits / Nutrition On average, how many days per week do you engage in moderate to strenous exercise (like a brisk walk)?: 7 days On average, how man minutes do you engage in exercise at this level?: 30 min Have you lost any weight without trying in the past 3 months? : No Have you seen the dentist within the past year?: Yes Hearing/ Vision: Hearing / Vision Do you or your family notice any trouble with your hearing that hasn't been managed with hearing aids?: No Do you have difficulty driving, watching TV, or doing any of your daily activities because of your eyesight?: No Have you had an eye exam within the past year?: Yes Vision Screening Right eye Left eye Both eyes Without correction With correction 20/20 20/20 20/20 Safety: Safety Do you have a working smoke detector?: Yes Do you have any tripping hazards - loose or unsecured carpets or rugs?: No Do you have any tripping hazards - clutter in doorways, halls, or stairs?: No Do you have either shower bars, grab bars, non-slip mats or non-slip surfaces in your shower or bathtub? : Yes Do all your stairways have a railing or banister? : Yes Do you fasten your seatbelt when you are in a car?: Yes ADL: ADL In the past 7 days, did you need help from others to perform any of the following everyday activities: Eating, dressing, grooming,bathing, toileting, or walking / balance? : No In the past 7 days, did you need help from others to take care of any of the following: laundry, housekeeping, banking / finances,shopping, telephone use, food preparation, transportation, or taking medications? : No Living Will: Living Will Do you have a living will?: Yes Cognitive: Cognitive Screening: Mini-Cog Clock Drawing Test (CDT): 2 Words Recalled: 2 Total Score: 4 Total Score Interpretation: Normal Mini-Cog Fall Risk: Fall Risk One or more falls in the last year:: Yes Advised to use a cane or walker to get around safely:: Yes Feels unsteady when walking:: Yes Steadies self on furniture while walking at home:: Yes Worried about falling:: Yes Interventions: Home safety tips provided Depression Screening: Over the past 2 weeks, how often have you been bothered by any of the following problems? Little interest or pleasure in doing things: Not at all Feeling down, depressed, or hopeless: Not at all Patient Health Questionnaire-2 Score: 0 Interventions: Tobacco Use: Social History Tobacco Use Smoking Status Former Current packs/day: 0.00 Average packs/day: 0.3 packs/day for 10.0 years (2.5 ttl pk-yrs) Types: Cigarettes Start date: 06/24/1967 Quit date: 06/24/1977 Years since quittin.6 Smokeless Tobacco Never Alcohol Use: Audit Alcohol Screening Q1: How often do you have a drink containing alcohol?: Monthly or less Q2: How many drinks containing alcohol do you have on a typical day when you are drinking?: 1 or 2 Q3: How often do you have six or more drinks on one occasion?: Never Audit-C Score: 1 Skip to questions 9-10?: 1 Social Drivers of Health: SDOH risk assessment performed and documented today by members of the health care team. A total time of 0-5 minutes was spent obtaining information from the patient and discussing options to address the patient's social risk factors and unmet needs. Social Drivers of Health with Concerns Concerns Present Tobacco Use: Medium Risk (02/12/2025) Physical Activity: Insufficiently Active (10/02/2024) documented in this encounter [facility] 02-12-2025 Instructions Bonnie Ceron MA - 02/12/2025 9:20 AM EDT Annual exam after one year. Jeramie Ching MD Personalized Preventative Plan for Izabela London - 02/12/2025 Medicare offers a range of preventative health benefits. Some of the tests and screenings are paid in full while others may be subject to a deductible, co-insurance, and / or copay. Some of these benefits include a comprehensive review of your medical history including lifestyle, illnesses that may run in your family, and various assessments and screenings as appropriate. After reviewing your medical record and screening and assessments performed today, your provider may have ordered immunizations, labs, imaging, and / or referrals for you. A list of these orders (if applicable) as well as your Preventative Care list are included within your After Visit Summary for your review. Other Preventative Recommendations: A preventive eye exam by an museum informatics specialist is recommended every 1-2 years to screen for glaucoma, cataracts, macular degeneration, and other eye disorders. A preventive dental visit is recommended every 6 months. Try to get at least 150 minutes of exercise per week or 10,000 steps per day on a pedometer. You need 1200-1500mg of calcium and 5058-4664 international units of vitamin D per day. It is possible to meet your calcium requirement with diet alone, but a vitamin D supplement is usually necessary to meet this goal. When exposed to the sun, use a sunscreen that protects against both UVA and UVB radiation with an SPF of 30 or greater. Reapply every 2-3 hours or after sweating, drying off with a towel, or swimming. Always wear a seat belt when traveling in a car. Always wear a helmet when riding a bicycle or a motorcycle documented in this encounter [facility] 02-09-2025 Telephone encounter Note Called patient to confirm tomorrow's appointment. No answer. Unable to leave message. [facility] 02-09-2025 Miscellaneous Notes Called patient to confirm tomorrow's appointment. No answer. Unable to leave message. documented in this encounter [facility] 12-14-2024 Telephone encounter Note Medication name: simvastatin (Zocor) Medication dosage: 20 mg (Miligrams Monthly quantity needed: 30 How many day supply requestin days Medication route: oral (PO) Medication administration time(s): daily If taking medication PRN, reason for taking medication: N/A If this is a controlled substance do you receive this or any other controlled medication from any other doctor or facility: No Ordering provider: Helen Date of last office visit: 10/03/24 Date of next office visit: 02/12/25 Date of last refill: (see medication tab): 12/08/23 Updated/Validated preferred pharmacy: Yes Patient instructed to contact the pharmacy prior to picking up the medication: No [facility] 12-14-2024 Miscellaneous Notes Medication name: simvastatin (Zocor) Medication dosage: 20 mg (Miligrams Monthly quantity needed: 30 How many day supply requestin days Medication route: oral (PO) Medication administration time(s): daily If taking medication PRN, reason for taking medication: N/A If this is a controlled substance do you receive this or any other controlled medication from any other doctor or facility: No Ordering provider: Helen Date of last office visit: 10/03/24 Date of next office visit: 02/12/25 Date of last refill: (see medication tab): 12/08/23 Updated/Validated preferred pharmacy: Yes Patient instructed to contact the pharmacy prior to picking up the medication: No documented in this encounter [facility] 11-29-2024 Telephone encounter Note [facility] Specialty Pharmacy Oncology Care Plan SUBJECTIVE Izabela London is a 84 year old Male who was referred to [facility] Specialty Pharmacy for clinical management services for Xtandi 40 MG. Diagnosis Malignant neoplasm of prostate C61 OBJECTIVE Medications: Aspirin 81 MG CHEW PO Carvedilol 3.125 MG TABS PO Flomax 0.4 MG CAPS PO Lisinopril 10 MG TABS PO Os-Preeti Calcium + D3 500-200 MG-UNIT TABS PO Simvastatin 20 MG TABS PO Vitamin D (Cholecalciferol) 1000 UNIT CAPS PO Xtandi 40 MG CAPS PO Supportive Medications: GnRH Agent for Xtandi 40 MG Allergies: No Known Allergies Medical History & Comorbidities: Problem list has been reviewed in the EHR ASSESSMENT / PLAN Xtandi 40 MG Administration Self administered at home oral medication. Patient takes enzalutamide (Xtandi) 4 capsules (160mg) by mouth daily. Patient understands that medication should be taken at approximately the same time each day, with or without food, and medication should not be chewed or crushed. Izabela has been on Xtandi since 03/2021. He understands and is comfortable with administration directions. No barriers to therapy identified. Contact Advised patient to contact pharmacy or provider with any concerns regarding side effects, questions regarding therapy, or any other situation where clinical oversight is necessary. Provided patient with direct number to clinical pharmacist for questions or concerns prior to scheduled follow up. The patient was oriented to the pharmacy s services upon initial fill. Encouraged patient to participate in this plan of care by speaking with a pharmacist which is offered during each reassessment. Disease state education Counseled on general disease state management strategies. Emphasized the importance of consistent adherence to prescribed medication in order to achieve treatment goals. Monitoring and follow up Reviewed therapy monitoring parameters and importance to maintain follow-up lab and provider visits. Labs to be monitored routinely for side effects: CBC, CMP/LFTs, blood pressure. PSA will be monitored to assess for efficacy. Storage/Disposal Store at 20 C to 25 C (68 F to 77 F). Store in a dry place. Keep medications in a safe place, out of reach of children and pets. Expectations and Goals of therapy Patient continues to work towards and meet goals of therapy including prostate cancer control, PSA suppression, and symptom management. Adherence Advised patient of the importance of taking this medication as prescribed and to avoid missing any doses. Advised patient if a dose was missed, it may be taken upon remembering if it is the same day. If a dose is missed and not noticed until the following day, the missed dose should be skipped. Patient understands not to take two doses at once. Denies missed doses. Side effects Common side effects reviewed: Fatigue, decreased appetite and weight, hot flush, arthralgia, hypertension, diarrhea, constipation, hyperglycemia and hypermagnesemia. Serious side effects reviewed: seizure, posterior reversible encephalopathy syndrome (rapid and significant neurologic changes), hypersensitivity (including facial swelling), ischemic heart disease, falls and fractures. Live vaccines should NOT be administered during chemotherapy or periods of significant immunosuppression. Denies all side effects. Efficacy Most recent PSA 5.1 on 11/21/24. Pharmacy Recommendations/Education/Other Continuation of therapy is appropriate. Medications, allergies, ancillary medications, medical condition, and appropriate vaccinations were reviewed. Patient is agreeable to care plan. No questions or concerns at this time. [facility] will continue to provide clinical pharmacy services and coordinate refills/deliveries with the patient. Delivery scheduled for 12/04/24. F/U ~ 6 months or as clinically indicated Bhanu Diaz, KevynD, [facility] Clinical Specialty Pharmacist [facility] 11-29-2024 Miscellaneous Notes [facility] Specialty Pharmacy Oncology Care Plan SUBJECTIVE Izabela London is a 84 year old Male who was referred to [facility] Specialty Pharmacy for clinical management services for Xtandi 40 MG. Diagnosis Malignant neoplasm of prostate C61 OBJECTIVE Medications: Aspirin 81 MG CHEW PO Carvedilol 3.125 MG TABS PO Flomax 0.4 MG CAPS PO Lisinopril 10 MG TABS PO Os-Preeti Calcium + D3 500-200 MG-UNIT TABS PO Simvastatin 20 MG TABS PO Vitamin D (Cholecalciferol) 1000 UNIT CAPS PO Xtandi 40 MG CAPS PO Supportive Medications: GnRH Agent for Xtandi 40 MG Allergies: No Known Allergies Medical History & Comorbidities: Problem list has been reviewed in the EHR ASSESSMENT / PLAN Xtandi 40 MG Administration Self administered at home oral medication. Patient takes enzalutamide (Xtandi) 4 capsules (160mg) by mouth daily. Patient understands that medication should be taken at approximately the same time each day, with or without food, and medication should not be chewed or crushed. Izabela has been on Xtandi since 03/2021. He understands and is comfortable with administration directions. No barriers to therapy identified. Contact Advised patient to contact pharmacy or provider with any concerns regarding side effects, questions regarding therapy, or any other situation where clinical oversight is necessary. Provided patient with direct number to clinical pharmacist for questions or concerns prior to scheduled follow up. The patient was oriented to the pharmacy s services upon initial fill. Encouraged patient to participate in this plan of care by speaking with a pharmacist which is offered during each reassessment. Disease state education Counseled on general disease state management strategies. Emphasized the importance of consistent adherence to prescribed medication in order to achieve treatment goals. Monitoring and follow up Reviewed therapy monitoring parameters and importance to maintain follow-up lab and provider visits. Labs to be monitored routinely for side effects: CBC, CMP/LFTs, blood pressure. PSA will be monitored to assess for efficacy. Storage/Disposal Store at 20 C to 25 C (68 F to 77 F). Store in a dry place. Keep medications in a safe place, out of reach of children and pets. Expectations and Goals of therapy Patient continues to work towards and meet goals of therapy including prostate cancer control, PSA suppression, and symptom management. Adherence Advised patient of the importance of taking this medication as prescribed and to avoid missing any doses. Advised patient if a dose was missed, it may be taken upon remembering if it is the same day. If a dose is missed and not noticed until the following day, the missed dose should be skipped. Patient understands not to take two doses at once. Denies missed doses. Side effects Common side effects reviewed: Fatigue, decreased appetite and weight, hot flush, arthralgia, hypertension, diarrhea, constipation, hyperglycemia and hypermagnesemia. Serious side effects reviewed: seizure, posterior reversible encephalopathy syndrome (rapid and significant neurologic changes), hypersensitivity (including facial swelling), ischemic heart disease, falls and fractures. Live vaccines should NOT be administered during chemotherapy or periods of significant immunosuppression. Denies all side effects. Efficacy Most recent PSA 5.1 on 11/21/24. Pharmacy Recommendations/Education/Other Continuation of therapy is appropriate. Medications, allergies, ancillary medications, medical condition, and appropriate vaccinations were reviewed. Patient is agreeable to care plan. No questions or concerns at this time. [facility] will continue to provide clinical pharmacy services and coordinate refills/deliveries with the patient. Delivery scheduled for 12/04/24. F/U ~ 6 months or as clinically indicated Bhanu Diaz PharmD, [facility] Clinical Specialty Pharmacist [phone] documented in this encounter [facility] 11-21-2024 History of Present illness Narrative Pt arrived for zoladex/zometa q12 weeks. PIV placed. CBC/CMP/PSA drawn from PIV and sent to [facility]. Pt reports feeling well. No concerns at this time. Denies any jaw/dental pain and no upcoming dental work. 1242: Ordered treatment completed. Patient discharged without any issues. Patient has a copy of next infusion appointment and verbalizes understanding. All questions answered. documented in this encounter [facility] 11-21-2024 History of Present illness Narrative Patient ID: Izabela London is a 84 y.o. male. HPI Tolerating Xtandi well. No hot flashes, seizures or back pain. he has the following oncology history 1. 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 2. S/p REPOCH chemotherapy with IT methotrexate. IT MTX started with cycle 3 and was given on day [address] scan post treatment and BMBx showed no evidence of disease hence CR. 4. Metastatic prostate cancer diagnosed Oct 2019. Metastatic sites involve bone. Under the care of Dr. Sarmiento and was getting GnRH agonist. Initially he got Lupron and then was started on Zoladex. 5. Due to rising PSA in spite of low testosterone, started on Xtandi 160 mg p.o. daily March 2021. Review of Systems - Oncology No nausea, vomiting, diarrhea, fever, night sweats, chills, cough, shortness of breath, chest pain BSA: 2.13 meters squared BP 130/70 Pulse 63 Temp 36.2 C (97.2 F) (Temporal) Ht 1.803 m (5' 10.98) Wt 90.2 kg (198 lb 14.4 oz) SpO2 98% BMI 27.76 kg/m Physical Exam No lymphadenopathy or hepatosplenomegaly. No lower extremity edema. Lab Results Component Value Date WBC 7.2 08/23/2024 HGB 14.4 08/23/2024 HCT 43.6 08/23/2024 MCV 97.5 08/23/2024 PLT 304 08/23/2024 Lab Results Component Value Date GLUCOSE 89 08/23/2024 CALCIUM 9.0 08/23/2024 NA 134 (L) 06/24/2024 K 4.2 06/24/2024 CO2 27 08/23/2024 CL 102 06/24/2024 BUN 20 08/23/2024 CREATININE 0.52 (L) 08/23/2024 PSA Aug 2025 is 1.6 which is stable Assessment/Plan he appears to be in complete remission from Burkitt's Lymphoma standpoint. 2. Rising PSA in the setting of GnRH agonist in spite of castrate levels of testosterone. Check PSA today. On cystoscopy, bladder had metastatic prostate cancer. Certain if that is a new finding or was a day. PSA will help assist next steps. Hematuria has resolved after he passed the stone. continue Zoladex 10.8mg depot every 12 weeks Continue Xtandi 160 mg p.o. daily. Discussed some of the side effects that include hot flashes, back pain, very low risk of seizures among others. We will touch base after bone scan and proceed accordingly. Median duration of response with xtandi is 15 months check CBC, CMP and PSA prior to next visit which is in 3 month. Continue Zometa every 12 weeks. I did discuss risk of osteonecrosis of the jaw which is 1 to 2% in patients receiving Zometa 3. I have counseled him on diet and exercise. Patient verbalizes understanding and agrees with the plan. There are no diagnoses linked to this encounter. Plan as of 11/21/24 Patient here to see Dr. Urias 1-Lav, 2-5ML SST drawn, 1 stick Labs sent to [facility] documented in this encounter [facility] [employer] 10-03-2024 History of Present illness Narrative Subjective Patient ID: Izabela London is a 84 y.o. male who presents for Follow-up and Med Refill (Lisinopril and carvedilol ). HPI Patient is improved, no falls, no imbalance sx, using a cane at home. No pain complaints. BP is controlled with lisinopril and carvedilol. Follows with oncology for metastatic prostate CA. Notes some urinary frequency, no dysuria or gross hematuria. No flank pain. No buttock pain or skin ulceration sx. No chest pain or exertional dyspnea. Review of Systems Constitutional: Negative for fatigue. Respiratory: Negative for shortness of breath. Cardiovascular: Negative for chest pain. Gastrointestinal: Negative for abdominal pain. All other systems reviewed and are negative. Objective Physical Exam Vitals and nursing note reviewed. Constitutional: General: He is not in acute distress. Appearance: Normal appearance. He is normal weight. He is not ill-appearing, toxic-appearing or diaphoretic. Cardiovascular: Rate and Rhythm: Normal rate. Rhythm irregular. Heart sounds: Normal heart sounds. No murmur heard. Pulmonary: Effort: Pulmonary effort is normal. Breath sounds: Normal breath sounds. No wheezing, rhonchi or rales. Skin: General: Skin is warm and dry. Coloration: Skin is not pale. Neurological: Mental Status: He is alert. Psychiatric: Mood and Affect: Mood normal. Behavior: Behavior normal. Thought Content: Thought content normal. Judgment: Judgment normal. Assessment/Plan Diagnoses and all orders for this visit: Essential hypertension - lisinopril 10 MG tablet; Take 1 tablet (10 mg) by mouth daily. 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 Follow up with oncology as scheduled. Follow up in January with me as scheduled. Jeramie Ching MD documented in this encounter [facility] [employer] 10-03-2024 Instructions Bonnie Ceron MA - 10/03/2024 8:40 AM EST Follow up with oncology as scheduled. Follow up in January with me as scheduled. Jeramie Ching MD documented in this encounter [facility] 08-29-2024 History of Present illness Narrative Pt arrives today from [facility] for Zometa + Zoladex. Pt has no acute concerns or complaints on assessment. Just reports weakness due to bilateral knees. Pt denies any jaw pain or dental issues. POC reviewed. PIV placed with ease. PSA drawn and sent to [facility]. 1230 Zoladex given in L lower abdomen and tolerated well. Bandaid applied to site. Zometa infusion complete. PIV removed with catheter intact. 12 week apt scheduled and copy provided to pt's . Discharged home via wheelchair in no acute distress. documented in this encounter [facility] 08-29-2024 History of Present illness Narrative Patient ID: Izabela London is a 84 y.o. male. HPI Tolerating Xtandi well. No hot flashes, seizures or back pain. He was in the hospital last month for hematuria. He had a kidney stone. 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 It was not bleeding and after passing kidney stone he has not had any further hematuria. he has the following oncology history 1. 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 2. S/p REPOCH chemotherapy with IT methotrexate. IT MTX started with cycle 3 and was given on day [address] scan post treatment and BMBx showed no evidence of disease hence CR. 4. Metastatic prostate cancer diagnosed Oct 2019. Metastatic sites involve bone. Under the care of Dr. Sarmiento and was getting GnRH agonist. Initially he got Lupron and then was started on Zoladex. 5. Due to rising PSA in spite of low testosterone, started on Xtandi 160 mg p.o. daily March 2021. Review of Systems - Oncology No nausea, vomiting, diarrhea, fever, night sweats, chills, cough, shortness of breath, chest pain BSA: There is no height or weight on file to calculate BSA. There were no vitals taken for this visit. Physical Exam No lymphadenopathy or hepatosplenomegaly. No lower extremity edema. Lab Results Component Value Date WBC 7.2 08/23/2024 HGB 14.4 08/23/2024 HCT 43.6 08/23/2024 MCV 97.5 08/23/2024 PLT 304 08/23/2024 Lab Results Component Value Date GLUCOSE 89 08/23/2024 CALCIUM 9.0 08/23/2024 NA 134 (L) 06/24/2024 K 4.2 06/24/2024 CO2 27 08/23/2024 CL 102 06/24/2024 BUN 20 08/23/2024 CREATININE 0.52 (L) 08/23/2024 PSA 05/18/24: 1.16 Assessment/Plan he appears to be in complete remission from Burkitt's Lymphoma standpoint. 2. Rising PSA in the setting of GnRH agonist in spite of castrate levels of testosterone. Check PSA today. On cystoscopy, bladder had metastatic prostate cancer. Certain if that is a new finding or was a day. PSA will help assist next steps. Hematuria has resolved after he passed the stone. continue Zoladex 10.8mg depot every 12 weeks Continue Xtandi 160 mg p.o. daily. Discussed some of the side effects that include hot flashes, back pain, very low risk of seizures among others. We will touch base after bone scan and proceed accordingly. Median duration of response with xtandi is 15 months check CBC, CMP and PSA prior to next visit which is in 3 month. Continue Zometa every 12 weeks. I did discuss risk of osteonecrosis of the jaw which is 1 to 2% in patients receiving Zometa 3. I have counseled him on diet and exercise. Patient verbalizes understanding and agrees with the plan. There are no diagnoses linked to this encounter. Plan as of 08/29/24 documented in this encounter [facility] 08-18-2024 Telephone encounter Note Recent Visits Date Type Provider Dept 07/20/24 Office Visit MD Yves Oliveira [facility] 02/07/24 Office Visit MD Brandon Oliveira 12/22/23 Office Visit Jeramie Ching MD [facility] Anaya Schwarz Showing recent visits within past 365 days and meeting all other requirements Future Appointments Date Type Provider Dept 10/09/24 Appointment Jeramie Ching MD [facility] Anaya Schwarz Showing future appointments within next 90 days and meeting all other requirements Requested Prescriptions Pending Prescriptions Disp Refills tamsulosin (Flomax) 0.4 MG 24 hr capsule [Pharmacy Med Name: TAMSULOSIN HCL 0.4 MG CAPSULE] 180 capsule 3 Sig: TAKE 1 CAPSULE (0.4 MG) BY MOUTH IN THE MORNING AND 1 CAPSULE (0.4 MG) IN THE EVENING. Provider: Jeramie Ching MD Overdue for visit: No If yes - patient scheduled? No Most recent labs completed in chart? Yes Verified pharmacy: yes Verified day(s) supplied: yes Verified refill(s) needed (previous prescription showing no refills in chart): Yes [facility] 08-18-2024 Miscellaneous Notes Recent Visits Date Type Provider Dept 07/20/24 Office Visit MD Brandon [facility] 02/07/24 Office Visit MD Brandon [facility] 12/22/23 Office Visit MD Brandon Olive[facility] Showing recent visits within past 365 days and meeting all other requirements Future Appointments Date Type Provider Dept 10/09/24 Appointment MD Brandon Oliveira Showing future appointments within next 90 days and meeting all other requirements Requested Prescriptions Pending Prescriptions Disp Refills tamsulosin (Flomax) 0.4 MG 24 hr capsule [Pharmacy Med Name: TAMSULOSIN HCL 0.4 MG CAPSULE] 180 capsule 3 Sig: TAKE 1 CAPSULE (0.4 MG) BY MOUTH IN THE MORNING AND 1 CAPSULE (0.4 MG) IN THE EVENING. Provider: Jeramie Ching MD Overdue for visit: No If yes - patient scheduled? No Most recent labs completed in chart? Yes Verified pharmacy: yes Verified day(s) supplied: yes Verified refill(s) needed (previous prescription showing no refills in chart): Yes documented in this encounter [facility] 07-27-2024 Telephone encounter Note Spoke to patient he will call her-has not received any calls. [facility] 07-27-2024 Miscellaneous Notes Spoke to patient he will call her-has not received any calls. Name of caller: Abigail Contact phone number: [phone] Relationship to Patient: [facility] AT [place] Provider: Dr. Ching Practice: [facility] Chief Complaint/Reason for Call: Abigail with [facility] at home reporting pt missed visit again today for home health and has been trying to contact him for the last 2 days. Best time of day caller can be reached: any Patient advised that office/PCP has 24-48 business hours to return their call: N/A documented in this encounter [facility] 07-27-2024 Telephone encounter Note Name of caller: Abigail Contact phone number: [phone] Relationship to Patient: [facility] [place] Provider: Dr. Ching Practice: [facility] Chief Complaint/Reason for Call: Abigail with [facility] at home reporting pt missed visit again today for home health and has been trying to contact him for the last 2 days. Best time of day caller can be reached: any Patient advised that office/PCP has 24-48 business hours to return their call: N/A [facility] 07-20-2024 History of Present illness Narrative Flu shot Patient was offered the flu vaccination at their visit today and Patient accepted. PCP Notified. Images from the original note were not included. Subjective Patient ID: Izabela London is a 84 y.o. male who presents for Hospital Follow-up. HPI Hx metastatic prostate cancer, followed by oncology, on Xtandi and Zoladex. Hx Burkitt's Lymphoma in remission. Hx URI sx, dx with bronchitis 05/31/24. Rx doxycycline with resultant diarrheal illness. Patient became weak, found in diarrhea overnight at home and admitted to [facility] with failure to thrive and bilateral buttocks decubiti. Patient discharged to rehab at [facility] 06/24/24 (near his home) and he began physical therapy. Patient developed a fever while at [place], CT there showed a renal stone per patient and his (notes in media). Patient underwent laser lithotripsy and cystoscopy showed a bladder lesion, bx positive for metastatic prostate cancer (bx report requested). Patient had urinary catheter for one day on discharge home from rehab, then removed, no urinary incontinence, no hematuria. Now no flank or abd pain, no diarrhea, no fever or chills. Patient continues deconditioned walks with rollator, has home pt and nursing. 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 Buttock wounds have resolved. Review of Systems Constitutional: Positive for fatigue. Respiratory: Negative for shortness of breath and wheezing. Cardiovascular: Negative for chest pain and leg swelling. Musculoskeletal: Positive for gait problem. Negative for arthralgias and back pain. Skin: Negative for rash. All other systems reviewed and are negative. Objective Physical Exam Vitals and nursing note reviewed. Constitutional: General: He is not in acute distress. Appearance: Normal appearance. He is normal weight. He is not ill-appearing, toxic-appearing or diaphoretic. HENT: Head: Normocephalic and atraumatic. Cardiovascular: Rate and Rhythm: Normal rate and regular rhythm. Heart sounds: Normal heart sounds. No murmur heard. Pulmonary: Effort: Pulmonary effort is normal. Breath sounds: Normal breath sounds. No wheezing, rhonchi or rales. Genitourinary: Skin: General: Skin is warm and dry. Findings: No rash. Neurological: Mental Status: He is alert. 06/24/24 [facility] discharge note reviewed Internal med noted 05/31/24 reviewed Oncology note 06/06/24 reviewed. Lab Results Component Value Date WBC 7.5 06/24/2024 HGB 12.9 (L) 06/24/2024 HCT 40.4 06/24/2024 MCV 96.9 06/24/2024 PLT 252 06/24/2024 Chemistry Lab Results Component Value Date/Time NA 134 (L) 06/24/2024 0403 K 4.2 06/24/2024 0403 CL 102 06/24/2024 0403 CO2 28 06/24/2024 0403 CO2 28 05/18/2024 0914 BUN 18 06/24/2024 0403 BUN 15 05/18/2024 0914 CREATININE 0.40 (L) 06/24/2024402 CREATININE 0.45 (L) 05/18/2024 0914 Lab Results Component Value Date/Time CALCIUM 8.5 06/24/2024402 CALCIUM 9.3 05/18/2024 0914 ALKPHOS 59 06/24/2024 0403 ALKPHOS 42 05/18/2024 0914 AST 56 (H) 06/24/2024402 AST 48 (H) 05/18/2024 0914 ALT 63 (H) 06/24/2024402 ALT 58 (H) 05/18/2024 0914 BILITOT 0.5 06/24/2024402 BILITOT 0.7 05/18/2024 0914 Lab Results Component Value Date HGBA1C 5.7 (A) 03/11/2021 Lab Results Component Value Date PSA 0.443 03/25/2023 PSA 1.180 09/24/2022 PSA 0.717 06/18/2022 Labs reviewed. 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 Followed by oncology Needs flu shot - Flu vaccine (FLUAD), trivalent, adjuvanted, preservative-free (ages 65+/high dose) History of renal stone Removed by Urology, no sx Physical deconditioning Continue home physical therapy 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 No angina, no sx Records from [facility], include urology notes, cystoscopy operative report, pathology report and discharge summary. Last cardiology note [facility] Flu vaccine today Followup with me in September for recheck. Call if new, persistent or worsening symptoms. Jeramie Ching MD documented in this encounter [facility] 07-20-2024 Instructions Jessy King MA - 07/20/2024 3:00 PM EDT Records from [facility], include urology notes, cystoscopy operative report and discharge summary. Last cardiology note [facility] Flu vaccine today Followup with me in September for recheck. Call if new, persistent or worsening symptoms. documented in this encounter [facility] 07-03-2024 Note [facility] Medical Records Department [address] [place] [address] Discharge Summary 07/03/242035 MR#: [id number] Acct: [id number] Name: IZABELA LONDON Rep #: [id number] : 1940 84 From: Keaton Rader MD PCP: Dr. Jeramie Ching MD Status:ADM IN Location: [place] [address] Providers Date of Admission: 06/24/24 Primary Care Physician: Dr. Jeramie Ching MD Consultations 06/24/24 15:29 Consult: Onc/Wound/coordinator skill training program Routine Comment: Reason for Consult:: Stage 3 wounds to bottom. Reason For Visit: FAILURE TO THRIVE, WOUNDS TO BUTTOCKS Diagnosis Discharge Diagnosis (1) Debility: Status: Acute Code(s): R53.81 - Other malaise (2) Weakness: Status: Acute Code(s): R53.1 - Weakness (3) Stage III pressure ulcer of sacral region: Status: Acute Code(s): L89.153 - Pressure ulcer of sacral region, stage 3 (4) Antibiotic-associated diarrhea: Status: Acute Code(s): K52.1 - Toxic gastroenteritis and colitis; T36.95XA - Adverse effect of unspecified systemic antibiotic, initial encounter (5) Dehydration: Status: Acute Code(s): E86.0 - Dehydration (6) Prostate cancer: Status: Acute Code(s): C61 - Malignant neoplasm of prostate (7) Burkitt lymphoma: Status: Acute Code(s): C83.70 - Burkitt lymphoma, unspecified site (8) Essential (primary) hypertension: Status: Acute Code(s): I10 - Essential (primary) hypertension (9) Hyperlipidemia, unspecified: Status: Acute Code(s): E78.5 - Hyperlipidemia, unspecified (10) Coronary artery disease: Status: Acute Code(s): I25.10 - Atherosclerotic heart disease of nightmute coronary artery without angina pectoris Plan 84 year old male with below past medical history hospitalized for weakness 2/2 antibiotic related diarrhea, dehydration, stage 3 bilateral sacral ulcers, admitted to TCU with debility, here for rehabilitation, strengthening, wound care, prior to discharge home with . * Debility - PT/OT. * Pain - Tylenol 1000mg q6 prn pain (1-10). * Bowel - Miralax 17gm daily prn. * Adult immunization - Administer pneumonia vaccine, covid vaccine, flu vaccine as appropriate. * DVT prophylaxis - Lovenox 40mg sc daily. * Shortness of breath - Albuterol 2 puffs q4 prn. * Vitamin C deficiency - Vitamin C 500mg daily. * Coronary artery disease - Coreg 3.125mg bid, Lisinopril 10mg daily, Aspirin 81mg daily. * Hyperlipidemia - Atorvastatin 10mg qhs. * Cough - Tessalon Perles 100mg tid prn. * Calcium deficiency - Calcium D 1 tablet daily. * Vitamin D deficiency - D 125mcg daily. * Stage 3 sacral pressure ulcer - Collagenase topical daily, consult wound nurse. * Nutrition - Ensure Plus 120ml tidcm. * Prostate cancer - Xtandi 160mg qhs. * BPH - Tamsulosin 0.4mg bid prn. * Zinc deficiency - Zinc 50mg daily. Medications at Discharge Home Medications ascorbic acid (vitamin C) 500 mg capsule 500 mg PO DAILY Supplement 06/24/24 aspirin 81 mg capsule 81 mg PO DAILY Heart 06/24/24 benzonatate 100 mg capsule 100 mg PO TID PRN PRN cough 06/24/24 calcium carbonate 500 mg-vitamin D3 5 mcg (200 unit) tablet (Oyster Shell Calcium-Vitamin D3) 1 tab PO DAILY supplement 06/24/24 carvedilol 3.125 mg tablet 3.125 mg PO BID BP 06/24/24 cholecalciferol (vitamin D3) 125 mcg (5,000 unit) capsule 125 mcg PO DAILY SUPPLEMENT 06/24/24 enzalutamide 40 mg capsule (Xtandi) 160 mg PO QHS Cancer 06/24/24 lisinopril 10 mg tablet 10 mg PO DAILY BP 06/24/24 simvastatin 20 mg tablet 20 mg PO QPM Cholesterol 06/24/24 zinc sulfate 50 mg zinc (220 mg) capsule (Orazinc) 50 mg PO DAILY Supplement 06/24/24 ciprofloxacin HCl 250 mg tablet 250 mg PO BID 4 days #8 tabs 09/09/24 tamsulosin 0.4 mg capsule 0.8 mg (2 x 0.4 mg) PO QHS #0 caps 07/03/24 Hospital Course Operations None Procedures None Summary of Care Provided Minutes Spent on Discharge: 35 Hospital Course: 84 year old male with below past medical history hospitalized for weakness 2/2 antibiotic related diarrhea, dehydration, stage 3 bilateral sacral ulcers, admitted to TCU with debility, here for rehabilitation, strengthening, wound care, prior to discharge home with . 07/03/2024 Resident had hematuria, UA c/w UTI, urine culture pending, treated with Cipro 250mg po bid x 7 days, he also had right flank pain, CT A/P, stone protocol pending. Discharge home with 07/06/2024, [facility] PT/OT/SN. Physical Exam Const alert General Appearance: cooperative HEENT normocephalic Eyes PERRL and EOMs intact bilaterally Neck supple, no JVD and no carotid bruits Resp normal respiratory effort, normal air movement and clear to auscultation bilaterally Cardio regular rate and regular rhythm GI normal to inspection, nondistended, normoactive bowel sounds, non-tender and non-distended Extremity normal capillary refill General Extremity: Negative for edema Skin Skin Narrative: (more content not included)... [facility] 06-24-2024 Note [facility] Medical Records Department [address] [place] [address] History Physical Exam 06/24/24 1649 MR#: [id number] Acct: [id number] Name: IZABELA LONDON Rep #: [id number] : 1940 84 From: Keaton Rader MD PCP: OUT OF TOWN DOCTOR Status:ADM IN Location: TCU TCU16-1 HPI - General General Date of Admission: 06/24/24 Date of Service: 06/27/24 Chief Complaint: Here for rehabilitation, wound care. HPI Narrative IZABELA LONDON, is a 84 Male who presents with followin06/20/2024 Admit to [facility] with sore bottom. Sacra pressure ulcer 2/2 antibiotic induced diarrhea, weakness. Diarrhea from Doxycycline, Generalized weakness, unable to walk. Doxycycline was for bronchitis, unable to care for self at home. PT/OT for SNF. IV fluids, delirium precautions. 06/21/2024 Wound nurse recommended Hibiclens, Collagenase, waffle cushion, Reposition frequently for stage 3 bilateral sacral ulcers. 06/21/2024 Feels better after IVF hydration. 06/22/2024 PT/OT recommended SNF. 06/24/2024 Admit to TCU with debility, here for rehabilitation, strengthening, wound care, prior to discharge home with . [facility] Medical History (Updated 06/24/24 @ 17:[address] Keaton Rader MD) Coronary artery disease Hyperlipidemia, unspecified Essential (primary) hypertension Burkitt lymphoma Prostate cancer Dehydration Antibiotic-associated diarrhea Stage III pressure ulcer of sacral region Weakness Debility Home Medications ???Medication ???Instructions ???Recorded ???Last Taken ???Type albuterol sulfate 90 mcg/actuation 2 inh inhalation Q4H PRN Breathing 06/24/24 Unknown History aerosol inhaler ascorbic acid (vitamin C) 500 mg 500 mg PO DAILY Supplement 06/24/24 06/24/24 09:30 History capsule aspirin 81 mg capsule 81 mg PO DAILY Heart 06/24/24 06/23/24 22:15 History benzonatate 100 mg capsule 100 mg PO TID PRN PRN cough 06/24/24 Unknown History calcium carbonate 500 mg-vitamin 1 tab PO DAILY supplement 06/24/24 06/24/24 09:30 History D3 5 mcg (200 unit) tablet (Oyster Shell Calcium-Vitamin D3) carvedilol 3.125 mg tablet 3.125 mg PO BID BP 06/24/24 06/24/24 09:30 History cholecalciferol (vitamin D3) 125 125 mcg PO DAILY SUPPLEMENT 06/24/24 Unknown History mcg (5,000 unit) capsule collagenase clostridium histo. 250 1 applic topical DAILY wound 06/24/24 06/24/24 09:30 History unit/gram topical ointment enzalutamide 40 mg capsule (Xtandi) 160 mg PO QHS Cancer 06/24/24 06/23/24 22:15 History lisinopril 10 mg tablet 10 mg PO DAILY BP 06/24/24 06/24/24 09:30 History polyethylene glycol 3350 17 17 g PO DAILY PRN constipation 08/31/24 08/27/24 History gram/dose oral powder (Miralax) simvastatin 20 mg tablet 20 mg PO QPM Cholesterol 06/24/24 Unknown History tamsulosin 0.4 mg capsule 0.4 mg PO BID PRN BPH 06/24/24 06/24/24 09:30 History zinc sulfate 50 mg zinc (220 mg) 50 mg PO DAILY Supplement 06/24/24 06/24/24 09:35 History capsule (Orazinc) Allergy/AdvReac Type Severity Reaction Status Date / Time No Known Allergies Allergy Verified 06/24/24 16:10 Family History (Updated 06/24/24 @ 17:[address] Keaton Rader MD) Father , at 77. Colon cancer Surgical History (Updated 06/24/24 @ 17:[address] Keaton Rader MD) History of total left knee replacement History of tonsillectomy and adenoidectomy History of arteriovenous graft History of cataract surgery History of coronary artery stent placement History of colonoscopy History of bone graft History of back surgery Social History (Updated 06/24/24 @ 17:[address] Keaton Rader MD) household members: spouse Smoking Status: Former smoker alcohol intake: current details: Glass of wine per week. substance use type: does not use ROS Constitutional Constitutional: Reports weakness; Denies chills, fever(s) or weight gain ENT HEENT: Denies headache(s), nasal congestion or nasal discharge Cardiovascular Cardiovascular: Denies chest pain or palpitations Respiratory/Chest Respiratory/Chest: Denies cough, excessive phlegm production or shortness of breath with exertion Gastrointestinal Gastrointestinal: Denies abdominal pain, nausea or vomiting Genitourinary Genitourinary: Denies dysuria Musculoskeletal Musculoskeletal: Denies joint pain or joint swelling Integumentary Integumentary: Denies rash or wounds Neurologic Neurologic: Denies focal weakness, numbness or tingling Psychiatric Psychiatric: Denies anxiety, auditory hallucinations, depression, homicidal ideation or suicidal ideation Vital Signs Vital Signs Vital Signs: 06/24/24 15:14 06/24/24 15:14 Temperature 97.3 F L Temperature Source Temporal Pulse Rate 63 Pulse Rhythm Regular Pulse Strength Normal (2+) Respiratory Rate 16 Respiratory (more content not included)... [facility] 06-24-2024 Nurse Note given papers for discharge to [facility] facility. Patient given bottle of Xtandi, His bottle of meds. is transporting to facility. [facility] 06-24-2024 Nurse Note given papers for discharge to [facility] facility. Patient given bottle of Xtandi, His bottle of meds. is transporting to facility. documented in this encounter [facility] 06-24-2024 Plan of care note Problem: Safety - Adult Goal: Free from fall injury Outcome: Progressing Problem: Chronic Conditions and Co-morbidities Goal: Patient's chronic conditions and co-morbidity symptoms are monitored and maintained or improved Outcome: Progressing Problem: Skin/Tissue Integrity - Adult Goal: Skin integrity remains intact Outcome: Progressing [facility] 06-24-2024 History of Present illness Narrative Patient denies any new complaints, no worsening of diarrhea and cough, wounds healing well, denies any pain, patient will be discharged to SNF today due to lack of bed availability yesterday. Images from the original note were not included. PHYSICAL THERAPY [facility] Treatment Note Name/MRN: Izabela London ([id number]) Date of : 1940 Age: 84 y.o. Room/Bed: B1-158/B1-158 A Visit #: 2 out of 5 visits [facility]charge [facility]ation[facility] Equipment Needed: No (Pt owns a FWW) Prior Level of Function ADL Assistance: Independent Ambulation Assistance: Independent Device(s) used: Front wheeled walker Transfer Assistance: Independent Assessment Pt tolerated session well. No pain reported. Pt tolerated supine and seated exercises well. Increased time to complete due to increased fatigue. Pt was able to increase ambulation distance and showed improved standing balance. Pt will continue to benefit from skilled PT interventions including strength and gait training. Continue to recommend SNF for discharge. Subjective Pt agreeable to therapy. entered room and informed pt that he will be discharged to SNF today. Pt reports urinating an increased amount due to IV fluids that he has had in. Observation: In bed, no lines Pain: Pt denies any current pain. Medical Precautions: No active isolations Proper PPE donned/doffed in accordance with facility standards. Fall Risk: Arguello Fall Risk Score: 85 (Low Risk) Arguello Fall Risk Score: 85 (High Risk) Precautions/Restrictions: N/A Overall Cognitive Status: WFL Overall Orientation Status: Oriented x4 Family/Caregiver Present: none Objective Bed Mobility Supine to sit: Mod Assist Pt needed increased assist to pull himself into sitting position. Pt did not require cueing for sequencing. HOB elevated to assist. Pt shows decreased strength overall requiring hands on assist. Transfers/Mobility Sit to stand: Mod Assist Stand to sit: Min Assist X1 from EOB. Pt cued for correct hand and foot placement prior to STS. Good teach back. Pt needed increased assist to pull him into full standing position. Pt cued to squeeze glutes and lift head and chest to stand up straight. Good teach back with increased time. Fair eccentric control, min assist to help pt control. Device(s) used: Front wheeled walker Ambulation Ambulation 1 Assistive device(s) used: Front wheeled walker Assist level: SBA, Contact Guard Distance (ft): 100ft Quality of gait: No LOB, reciprocal stepping, B foot clearance, slow reji Pt cued for upright posture, reciprocal stepping and heel to toe gait pattern. Good teach back. Pt fatigued quickly and needed to turn back to room. Pt shows good safety awareness and safe use of FWW. Instructed to use FWW at all times until otherwise instructed. Pt verbally taught back Exercises Exercises Quad Sets: supine x10 BLE Heelslides: supine x10 BLE Gluteal Sets: supine x10 BLE Knee Long Arc Quad: seated x10 BLE Ankle Pumps: supine x10 BLE Comments: Exercises completed to increase strength and circulation to improve mobility. Pt showed fair quad firing and teach back of exercises. Pt shows decreased strength overall. Plan Continue acute PT per plan of care. Safety/Education Safety Safety Devices in place: All fall risk precautions in place, call light within reach, left in chair, gait belt, patient at risk for falls, and nurse notified Restraints: No Education Education Given To: patient Education Provided: PT Role, PT Goals, Gait Training, Plan of Care, Home Exercise Program, Transfer Training, and Benefits of Increasing Activity Education Method: Verbal, Demonstration, and Teach Back Barriers to Learning: None Education Outcome: Verbalized Understanding and Demonstrated Understanding Outcome Measures AM-PAC AM-PAC Inpatient Mobility Raw Score (No Stairs) : 11 -[facility] Goals Patient Stated Goal: Go to SNF and continue therapy. Encounter Problems Encounter Problems (Active) Exercise Patient will complete lower extremity exercises for 1-2 sets / 5-10 reps in order to improve strength and activity tolerance for mobility. (Progressing) Start: 06/20/24 Expected End: 06/27/24 Mobility Patient will ambulate 100 feet with modified independence and rolling walker in order to improve safety and independence with mobility. (Progressing) Start: 06/20/24 Expected End: 06/27/24 Patient will ascend and descend 2 stairs with one railing and CGA in order to safely negotiate home. (Not Addressed) Start: 06/20/24 Expected End: 06/27/24 Transfers Patient will perform bed mobility with modified independence in order to improve independence and prepare for out of bed mobility. (Progressing) Start: 06/20/24 Expected End: 06/27/24 Patient will complete functional transfer with rolling walker with modified independence in order to prepare for ambulation. (Progressing) Start: 06/20/24 Expected End: 06/27/24 Therapy Time Individual Co-treatment Time In 1021 Time Out 1046 Minutes 25 Timed Code Treatment Minutes: 23 Minutes (1 ther ex, 1 gait) Fauzia Nugent PTA Images from the original note were not included. OCCUPATIONAL THERAPY [facility] Treatment Note Name/MRN: Izabela London ([id number]) Date of : 1940 Age: 84 y.o. Room/Bed: B1-158/B1-158 A Visit #: 1 out of 7 visits [facility]charge Recommendation[facility] Equipment Needed: No Assessment Pt is progressing with OT POC. Pt engaged in bed mobility with mod A, transfers with mod A, functional mobility with CGA, and grooming tasks with set up assist. Pt is limited by weakness, endurance, and balance. Pt is functioning below baseline and would benefit from skilled OT services to maximize safety and independence with ADLs and functional mobility. Rec SNF level therapy at discharge. Subjective Pt supine in bed at arrival. Pt ok to see per RN. Pt was pleasant and agreeable to OT tx. Pain: RN managing pain. Medical Precautions: No active isolations Proper PPE donned/doffed in accordance with facility standards. Fall Risk: Arguello Fall Risk Score: 40 (Low Risk) Arguello Fall Risk Score: 40 (Medium Risk) Precautions/Restrictions: N/A Family/Caregiver Present: none Objective ADLs Grooming: after setup Pt completed oral hygiene and face shaving with set up assist seated in recliner. Pt declining to attempt standing at sink due to poor endurance and increased fatigue after mobility. Bed Mobility Supine to sit: Mod Assist Scooting: Min Assist Pt required assist with BLE mgmt with supine to sit. Pt denies dizziness with positional changes. Pt seated in recliner post session Transfers/Mobility Sit to stand: Mod Assist Stand to sit: Contact Guard Functional mobility: Contact Guard Pt standing from EOB to fww with mod A for elevation and balance with verbal cues for safe hand placement with good carryover. Pt required to static stand ~1.5 minutes prior to ambulation. Pt engaging in functional mobility in room and short hallway distance with CGA and increased reliance on fww. No true LOB noted however pt with increased fatigue. Device(s) used: Front wheeled walker Plan Continue acute OT per plan of care. Safety/Education Safety Safety Devices in place: All fall risk precautions in place, call light within reach, left in chair, gait belt, patient at risk for falls, and no alarms engaged upon entry Restraints: N/A Education Education Given To: patient Education Provided: OT Role, Plan of Care, ADL Adaptive Strategies, Transfer Training, Equipment, Fall Prevention Education, Discharge Recommendations, and Benefits of Increasing Activity Education Method: Verbal and Teach Back Barriers to Learning: None Education Outcome: Verbalized Understanding, Demonstrated Understanding, and Continued Education Needed AM-PAC AM-PAC Inpatient Daily Activity Raw Score: 19 ADL Inpatient CMS G-Code Modifier: CK Goals Patient Stated Goal: to get stronger Encounter Problems Encounter Problems (Active) Balance Patient will tolerate standing for 3 minutes mod I at fww to allow increased independence in ADLs. (Slowly Progressing) Start: 06/20/24 Expected End: 07/03/24 Dressings Lower Extremities Patient will dress lower body mod I with AE PRN. (Not Addressed) Start: 06/20/24 Expected End: 07/03/24 Mobility Patient will demonstrate functional ambulation mod I with fww. (Progressing) Start: 06/20/24 Expected End: 07/03/24 Toileting Patient will complete toileting tasks at standard toilet with modified independence. (Not Addressed) Start: 06/20/24 Expected End: 07/03/24 Transfers Patient will complete functional transfer with rolling walker with modified independence in order to prepare for ambulation. (Slowly Progressing) Start: 06/20/24 Expected End: 07/03/24 Patient will perform bed mobility with modified independence in order to improve independence and prepare for out of bed mobility. (Progressing) Start: 06/20/24 Expected End: 07/03/24 Therapy Time Individual Co-treatment Time In 1014 Time Out 1029 Minutes 15 Timed Code Treatment Minutes: 15 Minutes (1 ADL) Marce Valencia OT Hospitalist Progress Note 06/22/[id number]: Please secure chat me for patient care issues. [id number]: Please secure chat [facility] Hospitalist for any issues. Subjective: Admit Date: 06/20/2024 PCP: Jeramie Ching MD Room#: B1-158/B1-158 A Brief History:Patient is an 84-year-old gentleman who was admitted last night by the emergency department with chief complaint of generalized weakness, diarrhea associated wounds/skin breakdown on the sacrum due to recent antibiotic use (doxycycline), administered for bronchitis which improved patient was dehydrated and too weak to ambulate, diarrhea settled in Chief Complaint : No recurrence of diarrhea or cough/dyspnea, weakness improved, received IV fluids, now on oral intake, currently doing an OT session,, no worsening of wound pain or discharge Adult diet Regular; Low Sodium (2 gm) @[id number]@ 24HR INTAKE/OUTPUT: Intake/Output Summary (Last 24 hours) at 06/22/2024 1100 Last data filed at 06/22/2024 0938 Gross per 24 hour Intake 700 ml Output 3650 ml Net -2950 ml Past Medical History: Past Medical History: Diagnosis Date 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, blood transfusions CAD (coronary artery disease) History of blood transfusion Hyperlipidemia Hypertension Prostate cancer (HCC) LABS: CBC: Recent Labs 06/20/24 1050 06/21/24 0123 06/22/24 0112 WBC 7.0 6.6 7.9 RBC 4.05* 3.61* 3.73* HGB 12.8* 11.4* 11.9* HCT 39.4* 35.9* 36.7* MCV 97.3 99.4* 98.4 RDW 13.5 13.7 13.8 PLT 298 260 248 BMP: Recent Labs 06/20/24 1050 06/21/24 0123 06/22/24 0113 NA 138 135 135 K 4.2 4.1 4.0 CL 103 105 104 CO2 29 25 27 BUN 12 16 16 CREATININE 0.41* 0.44* 0.43* GLUCOSE 95 112* 105* CALCIUM 8.3* 7.8* 8.2* ANIONGAP 6 5 5 LIVER PROFILE: Recent Labs 06/21/24 0123 06/22/24 0113 AST 62* 63* ALT 72* 67* BILITOT 0.3 0.3 ALKPHOS 60 66 PROT 5.6* 5.9* PT/INR: No results for input(s): PROTIME, INR in the last 72 hours. CARDIAC ENZYMES: Recent Labs 06/20/24 1050 TROPONINI <0.012 Procalcitonin: No results found for: PROCAL COVID-19 PCR: No results for input(s): COVID19 in the last 72 hours. Objective: Vitals: BP 129/57 (BP Location: Left arm, Patient Position: Sitting) Pulse 65 Temp 36.2 C (97.2 F) (Temporal) Resp 17 Ht 5' 11 (1.803 m) SpO2 95% BMI 28.17 kg/m Pulse Ox: SpO2 Av.5 % Min: 94 % Max: 95 % Physical Exam Constitutional: Appearance: He is ill-appearing. Cardiovascular: Rate and Rhythm: Normal rate and regular rhythm. Pulses: Normal pulses. Heart sounds: Normal heart sounds. Pulmonary: Effort: Pulmonary effort is normal. Breath sounds: Normal breath sounds. Abdominal: Palpations: Abdomen is soft. Musculoskeletal: General: Normal range of motion. Bilateral pressure ulcers of the buttock and sacrum present on admission Medications: ascorbic acid, 500 mg, Oral, Daily aspirin, 81 mg, Oral, Daily atorvastatin, 20 mg, Oral, Nightly Calcium Carb-Cholecalciferol, 1 tablet, Oral, Daily carvedilol, 3.125 mg, Oral, BID WC cholecalciferol, 5,000 Units, Oral, Daily collagenase, , Topical, Daily enoxaparin, 40 mg, SubCUTAneous, Daily enzalutamide, 160 mg, Oral, Nightly lisinopril, 10 mg, Oral, Daily tamsulosin, 0.4 mg, Oral, BID zinc sulfate, 50 mg of elemental zinc, Oral, Daily Assessment Acute Problems : Stage III pressure ulcer of bilateral buttocks, present on admission Antibiotic induced diarrhea -resolved Recent bronchitis-improved Generalized weakness due to volume loss Inability to ambulate Mild elevated LFTs Stable chronic problems affecting care, new non-acute diagnoses: Past Medical History: Diagnosis Date 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 No worsening of cough or dyspnea 06/22 -patient feels better, encourage oral intake, currently doing well OT session, PT recommended long-term facility, wound care for the buttock wounds, with chlorhexidine/collagenase ointment/moist dressing, no signs of infection, appreciate wound care input, vitamin C and zinc tablets, no recurrence of diarrhea -am labs, replace lytes prn -increase activity -DVT prophylaxis: [x] Lovenox [] Heparin [] SCDs [x] Encourage ambulation [] Already on Anticoagulation - GI prophylaxis : Anticipated Discharge - Date -June 23 or - Location -long-term facility - Pending the following -bed availability and insurance approval Total time spent (which include face to face and non face to face encounters) : 42 minutes Toxic drug monitoring/narrow therapeutic index drug monitoring : # Drug name : Lovenox # Route administered : SC # Method of monitoring : CBC Extended Emergency Contact Information Primary Emergency Contact: Lori London Address: [address] [place] [address] [place] Relation: Spouse Secondary Emergency Contact: Jessica London Mobile Relation: Daughter Maria Antonia Baker MD Division of Hospitalist Medicine [facility] PAGER: Epic chat Nutrition Assessment Type and Reason for Visit: Initial (on supplement) Nutrition Recommendations/Plan: Continue diet as ordered Adult diet Regular; Low Sodium (2 gm) Encourage protein -Continue supplements as ordered Ensure Plus TID (350 kcals, 20g protein per serving) Zinc, Vit C for wound healing -per MD Probiotic per MD discretion RD to monitor po intake, labs, weight, skin status -follow up weekly Malnutrition Assessment: Malnutrition Status: At risk for malnutrition (Comment) (age, diarrhea, wounds) Context: Acute Illness Findings of the 6 clinical characteristics of malnutrition: Energy Intake: No significant decrease in energy intake Weight Loss: No significant weight loss Body Fat Loss: No significant body fat loss Muscle Mass Loss: No significant muscle mass loss Fluid Accumulation: Mild Extremities, Generalized Personal Health Coach Strength: Not Performed Nutrition Assessment: 84 y.o. male admits with generalized weakness, diarrhea associated wounds/skin breakdown on the sacrum due to recent antibiotic use for bronchitis. pt reports good appetite tolerating meals and reports able to drink 2 Ensure plus so far (pt agreed to [place] as needed -Vit C and zinc orders noted at this time) pt denies recent weight change ubw 200 lb. pmhx includes HTN, CAD, lymphoma 2014, HLD, prostate cancer Estimated Daily Nutrient Needs: Energy Requirements Based On: Kcal/kg Weight Used for Energy Requirements: [place] Weight for Energy Calculation (kg): 78 kg Total Energy Requirements (kcals/day): 0964-2871 (25-30) Weight Used for Protein Requirements: [place] Weight in Kg Used for Protein Requirements: 78 kg Estimated Total Protein (g/day): 94-117 (1.2-1.5) Estimated Daily Total Fluid (ml/day): per MD Nutrition Related Findings: +2 blossom LE, trace UE and non-pitting generalized edema. bm 06/21/24; cr .44, bgluc 112, calcium 7.8, alb 2.7, ast 62/ alt 72. meds include Vit C, Calcium Carb, Vit D, Zinc, xtandi. wt hx reviewed -no clinically significant wt change noted at this time Wound Type: Stage II, Wound Consult Pending (Stage I pressure ulcer of the sacrum with stage II pressure ulcer of the buttocks per MD notes) 06/06/24 91.6 kg (202 lb) 03/07/24 92 kg (202 lb 12.8 oz) 02/07/24 93 kg (205 lb) 12/22/23 94.3 kg (208 lb) 12/14/23 94.7 kg (208 lb 11.2 oz) 12/07/23 95.1 kg (209 lb 11.2 oz) 09/21/23 94.5 kg (208 lb 4.8 oz) 09/07/23 95 kg (209 lb 8 oz) 06/29/23 96.3 kg (212 lb 4.8 oz) 03/25/23 93.4 kg (206 lb) Current Nutrition Therapies: Adult diet Regular; Low Sodium (2 gm) Current Oral Intake Average Meal Intake: 51-75%, 76-100% Average Supplements Intake: 76-100% (per pt report) Anthropometric Measures: Height: 180.3 cm (5' 11) Current Body Weight: 90.7 kg (200 lb) (stated) Weight Source: Stated Admission Body Weight: 90.7 kg (200 lb) Usual Body Weight: 91.6 kg (202 lb) (06/06/24) % Weight Change (Calculated): -1 [place] Body Weight (lbs) (Calculated): 172 lbs [place] Body Weight (Kg) (Calculated): 78 kg % [place] Body Weight (Calculated): 116.3 % BMI (kg/m2) (Calculated): 27.9 BMI Categories: Overweight (BMI 25.0-29.9) Nutrition Diagnosis: Increased nutrient needs related to increase demand for energy/nutrients as evidenced by wounds Nutrition Interventions: Nutrition Education/Counseling: No recommendation at this time Coordination of Nutrition Care: Continue to monitor while inpatient Plan of Care discussed with: patient Goals: Goals: PO intake 75% or greater, by next RD assessment Nutrition Monitoring and Evaluation: Behavioral-Environmental Outcomes: None Identified Food/Nutrient Intake Outcomes: Food and Nutrient Intake, Supplement Intake Physical Signs/Symptoms Outcomes: Biochemical Data, Chewing or Swallowing, GI Status, Nausea or Vomiting, Fluid Status or Edema, Diarrhea, Hemodynamic Status, Nutrition Focused Physical Findings, Skin, Weight Discharge Planning: Continue Oral Nutrition Supplement (goal of regular diet -until wounds healed) Radha Ortega RD Contact: *[phone] or via Secure Chat Images from the original note were not included. PHYSICAL THERAPY [facility] Treatment Note Name/MRN: Izabela London ([id number]) Date of : 1940 Age: 84 y.o. Room/Bed: B1158/B1158 A Visit #: 1 out of 5 visits Discharge Recommendation[facility] Equipment Needed: No (Pt owns a FWW) Prior Level of Function ADL Assistance: Independent Ambulation Assistance: Independent Device(s) used: Front wheeled walker Transfer Assistance: Independent Assessment Pt demonstrates continued motivation to participate in PT in order to progress toward goals and independence. Pt currently requires modA for bed mobility and transfers to FWW from elevated surface placing him at a high risk of falling. Pt demonstrates ability to ambulate further distance with CGA, however limited by fatigue. Pt completed B LE exercises in order to improve strength and activity tolerance for mobility. Pt could benefit from continued PT in order to progress toward goals. SNF recommendation remains appropriate at this time. Subjective Patient pleasant and agreeable to therapy session this date. Per RN patient okay for therapy. Observation: PIV intact Pain: Pt denies any current pain. Medical Precautions: No active isolations Proper PPE donned/doffed in accordance with facility standards. Fall Risk: Arguello Fall Risk Score: 0 (Low Risk) Precautions/Restrictions: N/A Overall Cognitive Status: WFL Overall Orientation Status: Oriented x4 Family/Caregiver Present: child(bharati) Objective Bed Mobility Supine to sit: Mod Assist, assist for B LE management and trunk Sit to supine: NT patient up in recliner end of session Scooting: Min Assist Denies dizziness with positional changes. Increased time to complete with modA for trunk and B LE management with use of bed features with cues for sequencing in order to facilitate independence. Transfers/Mobility Sit to stand: Mod Assist, to FWW from elevated EOB Stand to sit: Min Assist, decreased eccentric control Denies dizziness on initial stance. Cues for hand placement on ascent and descent to improve safety and independence with task. Pt requires momentum and modA to complete at this time. Device(s) used: Front wheeled walker Ambulation Ambulation 1 Assistive device(s) used: Front wheeled walker Assist level: Contact Guard Distance (ft): 60 ft x 1 Quality of gait: No LOB, reciprocal stepping, B foot clearance, equal step length, slow reji, flexed posture Pt requires cues for posture and proximity to FWW in order to improve safety with gait and adjust COG over ALVARO. Pt demonstrates ability to correct, however unable to maintain with fatigue. Exercises Quad Sets: 1 set / 20 reps B LE in supine Gluteal Sets: 1 set / 10 reps in sitting Hip Abduction/Adduction: 1 set / 10 reps B LE in sitting Knee Long Arc Quad: 1 set / 10 reps R and L LE in sitting Ankle Pumps: 1 set / 20 reps B LE in sitting Marchin set / 30 seconds B LE in sitting Comments: Initiated B LE exercises in order to improve strength and activity tolerance for mobility. Pt educated on technique and rationale for exercises in order to improve patients understanding and compliance with exercises. Pt demonstrates good understanding and ability to complete at this time. Plan Continue acute PT per plan of care. Safety/Education Safety Safety Devices in place: All fall risk precautions in place, call light within reach, left in chair, gait belt, patient at risk for falls, nurse notified, and no alarms engaged upon entry Restraints: N/A Education Education Given To: patient Education Provided: PT Role, PT Goals, Gait Training, Plan of Care, Home Exercise Program, Transfer Training, Equipment, Fall Prevention Education, Discharge Recommendations, and Benefits of Increasing Activity Education Method: Verbal, Demonstration, and Teach Back Barriers to Learning: None Education Outcome: Verbalized Understanding, Demonstrated Understanding, and Continued Education Needed Outcome Measures AM-PAC AM-PAC Inpatient Mobility Raw Score (No Stairs) : 12 Goals Patient Stated Goal: Patient states he wants to get stronger to get home. Encounter Problems Encounter Problems (Active) Exercise Patient will complete lower extremity exercises for 1-2 sets / 5-10 reps in order to improve strength and activity tolerance for mobility. (Progressing) Start: 06/20/24 Expected End: 06/27/24 Mobility Patient will ambulate 100 feet with modified independence and rolling walker in order to improve safety and independence with mobility. (Progressing) Start: 06/20/24 Expected End: 06/27/24 Patient will ascend and descend 2 stairs with one railing and CGA in order to safely negotiate home. (Not Addressed) Start: 06/20/24 Expected End: 06/27/24 Transfers Patient will perform bed mobility with modified independence in order to improve independence and prepare for out of bed mobility. (Progressing) Start: 06/20/24 Expected End: 06/27/24 Patient will complete functional transfer with rolling walker with modified independence in order to prepare for ambulation. (Progressing) Start: 06/20/24 Expected End: 06/27/24 Therapy Time Individual Co-treatment Time In 1105 Time Out 1130 Minutes 25 Timed Code Treatment Minutes: 24 Minutes (theract x 1, therex x 1) Lucy Ward PT Hospitalist Progress Note 06/21/2024 [id number]: Please secure chat me for patient care issues. [phone]: Please secure chat [facility] Hospitalist for any issues. Subjective: Admit Date: 06/20/2024 PCP: Jeramie Ching MD Room#: B1-158/B1-158 A Brief History: Patient is an 84-year-old gentleman who was admitted last night by the emergency department with chief complaint of generalized weakness, diarrhea associated wounds/skin breakdown on the sacrum due to recent antibiotic use (doxycycline), administered for bronchitis which improved patient was dehydrated and too weak to ambulate, diarrhea settled in Chief Complaint : This morning feels better after IV fluid administration, eating and drinking well, no recurrence of cough or dysuria, Wound care ordered Adult diet Regular; Low Sodium (2 gm) @[id number]@ 24HR INTAKE/OUTPUT: Intake/Output Summary (Last 24 hours) at 06/21/2024 1057 Last data filed at 06/21/2024 1026 Gross per 24 hour Intake 1725 ml Output 300 ml Net 1425 ml Past Medical History: Past Medical History: Diagnosis Date 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, blood transfusions CAD (coronary artery disease) History of blood transfusion Hyperlipidemia Hypertension Prostate cancer (HCC) LABS: CBC: Recent Labs 06/20/24 1050 06/21/24 0123 WBC 7.0 6.6 RBC 4.05* 3.61* HGB 12.8* 11.4* HCT 39.4* 35.9* MCV 97.3 99.4* RDW 13.5 13.7 PLT 298 260 BMP: Recent Labs 06/20/24 1050 06/21/24 0123 NA 138 135 K 4.2 4.1 CL 103 105 CO2 29 25 BUN 12 16 CREATININE 0.41* 0.44* GLUCOSE 95 112* CALCIUM 8.3* 7.8* ANIONGAP 6 5 LIVER PROFILE: Recent Labs 06/21/24 0123 AST 62* ALT 72* BILITOT 0.3 ALKPHOS 60 PROT 5.6* PT/INR: No results for input(s): PROTIME, INR in the last 72 hours. CARDIAC ENZYMES: Recent Labs 06/20/24 1050 TROPONINI <0.012 Procalcitonin: No results found for: PROCAL COVID-19 PCR: No results for input(s): COVID19 in the last 72 hours. Objective: Vitals: BP 127/64 (BP Location: Left arm, Patient Position: Sitting) Pulse 60 Temp 36.7 C (98.1 F) (Temporal) Resp 18 SpO2 95% Pulse Ox: SpO2 Av.8 % Min: 95 % Max: 98 % Physical Exam Constitutional: Appearance: He is ill-appearing. Cardiovascular: Rate and Rhythm: Normal rate and regular rhythm. Pulses: Normal pulses. Heart sounds: Normal heart sounds. Pulmonary: Effort: Pulmonary effort is normal. Breath sounds: Normal breath sounds. Abdominal: Palpations: Abdomen is soft. Musculoskeletal: General: Normal range of motion. Skin : Stage I pressure ulcer nonblanching erythema to the sacrum. 2 small approximately dime size open areas 1 on either buttock with no active drainage that appear consistent with stage II pressure ulcers. Medications: aspirin, 81 mg, Oral, Daily atorvastatin, 20 mg, Oral, Nightly Calcium Carb-Cholecalciferol, 1 tablet, Oral, Daily carvedilol, 3.125 mg, Oral, BID WC cholecalciferol, 5,000 Units, Oral, Daily enoxaparin, 40 mg, SubCUTAneous, Daily enzalutamide, 160 mg, Oral, Nightly lisinopril, 10 mg, Oral, Daily tamsulosin, 0.4 mg, Oral, Nightly Assessment Acute Problems : Stage I pressure ulcer of the sacrum with stage II pressure ulcer of the buttocks -moisture barrier ointment, vitamin C, zinc and protein supplementation, wound nurse assessment Antibiotic induced diarrhea Generalized weakness due to volume loss Inability to ambulate Mild elevated LFTs Stable chronic problems affecting care, new non-acute diagnoses: Past Medical History: Diagnosis Date 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 No worsening of cough or dyspnea -am labs, replace lytes prn -increase activity -DVT prophylaxis: [x] Lovenox [] Heparin [] SCDs [x] Encourage ambulation [] Already on Anticoagulation - GI prophylaxis : Anticipated Discharge - Date -June 23 or - Location -long-term facility - Pending the following -bed availability and insurance approval Total time spent (which include face to face and non face to face encounters) : 37 minutes Toxic drug monitoring/narrow therapeutic index drug monitoring : # Drug name : Enoxaparin # Route administered : Subcutaneous # Method of monitoring : CBC Extended Emergency Contact Information Primary Emergency Contact: ReyesmelinaLori torres Address: [address] [place] [address] Mobile Relation: Spouse Secondary Emergency Contact: Jessica London Mobile Relation: Daughter Maria Antonia Baker MD Division of Hospitalist Medicine [facility] Reality Digital PAGER: Epic chat Images from the original note were not included. OCCUPATIONAL THERAPY [facility] Initial Evaluation Name/MRN: Izabela London ([id number]) Evaluation Date: 06/20/2024 Date of : 1940 Admission Date: 06/20/2024 9:46 AM Age: 84 y.o. Room/Bed: Having reviewed the treatment plan and goals for this patient, I certify that the plan of care below is medically necessary and appropriate. Discharge Recommendation: Continue to assess pending progress, [facility] Assessment IMPRESSION: Prior to admission, pt was independent in ADLs, functional transfers and mobility with fww. Pt now requires min A-max A for ADLs, CGA for functional transfers and CGA-min A for mobility at fww. Pt is limited by impaired balance and endurance. Pt should benefit from skilled OT services in order to increase safety and independence in occupational participation. Admitting Diagnosis: Pt admitted with weakness, inability to ambulate and antibiotic induced diarrhea causing bed sores. H/o prostate CA and lymphoma. Performance Deficits /Impairments: Increased Pain, Decreased Functional Mobility, Decreased ADL status, Decreased Endurance, Decreased Balance, and Decreased High Level IADLs Prognosis: Good Decision Making: Medium Complexity Subjective Pt pleasant and cooperative. Per RN, ok for pt to participate in OT eval. Co-eval with PT as pt admitted with inability to ambulate and has not been OOB this admission. PIV intact. Pain: [place] Pain Ratin = Hurts even more Pain Location: Buttocks Past Medical History: Past Medical History: Diagnosis Date 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, blood transfusions CAD (coronary artery disease) History of blood transfusion Hyperlipidemia Hypertension Prostate cancer (HCC) Past Surgical History: Past Surgical History: Procedure Laterality Date BACK SURGERY 2014 BONE GRAFT 1989 broken foot- bone graft COLONOSCOPY CORONARY ANGIOPLASTY WITH STENT PLACEMENT 08/2012 EYE SURGERY Bilateral cataracts JOINT REPLACEMENT SKIN CANCER EXCISION left ear STENT CENTRAL VEIN AV GRAFT TONSILLECTOMY AND ADENOIDECTOMY (HISTORICAL) 1944 TOTAL KNEE ARTHROPLASTY Left 07/05/2019 Admission Diagnosis: Patient Active Problem List Diagnosis Date Noted Failure to thrive in adult 06/20/2024 Weakness of both lower extremities 02/07/2024 Gait disorder 02/07/2024 Right distal ureteral calculus 12/02/2021 Carotid stenosis, asymptomatic, bilateral 05/21/2021 Dyslipidemia 05/21/2021 Obesity, Class I, BMI 30-34.9 05/21/2021 Other hyperlipidemia 05/21/2021 Status post percutaneous transluminal coronary angioplasty 05/21/2021 Increasing prostate specific antigen (PSA) level after treatment for malignant neoplasm of prostate 10/04/2020 Malignant neoplasm metastatic to bone (HCC) 12/02/2019 Prostate cancer (HCC) 11/22/2019 Elevated PSA 08/05/2019 Arthritis of knee, left 07/06/2019 Arthritis of left knee 07/06/2019 History of heart artery stent 07/18/2018 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 07/18/2018 Drug-induced polyneuropathy (HCC) 07/18/2018 Pure hypercholesterolemia 07/18/2018 Essential hypertension 07/18/2018 Hydrocele 08/07/2017 Personal history of urinary calculi 05/05/2017 Nocturia 05/05/2017 Calculus of kidney 05/05/2017 Spermatocele of epididymis, single 05/05/2017 History of Burkitt's lymphoma 01/13/2016 Medical Precautions: No active isolations Proper PPE donned/doffed in accordance with facility standards. Fall Risk: (Low Risk) (High Risk) Precautions/Restrictions: N/A Family/Caregiver Present: spouse Overall Cognitive Status: WFL Overall Orientation Status: Oriented x4 Social/Functional History Patient admitted from home. 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 Upper Extremity Assessment AROM: WFL PROM: WFL Strength: generally decreased, functional Vision: wears glasses at all times and and are being used during the eval Hearing: normal Bed Mobility Supine to sit: Mod Assist, assist to manage BLE to EOB and elevate trunk Sit to supine: Mod Assist, assist to manage BLE into bed Scooting: SBA, to scoot to EOB HOB elevated with use of bed features and increased time to complete. Pt required VC for initiation and sequencing to complete. Denied dizziness with changes in positioning. Transfers/Functional Mobility Sit to stand: Contact Guard Stand to sit: Contact Guard Functional mobility: Contact Guard, Min Assist Pt completed STS to/from EOB with CGA with fww with VC for safe hand placement as pt attempted to hold onto fww during transfers. Pt ambulated a short distance in room/coyle with CGA-min A d/t instability at fww but no true LOB noted. Pt with increased fatigue, limiting distance. Device(s) used: Front wheeled walker AM-PAC AM-PAC Inpatient Daily Activity Raw Score: 19 ADL Inpatient [facility] G-Code Modifier: CK Plan Pt would benefit from skilled acute OT services to address Strengthening, Balance Training, Self-Care/ADL Training, Functional Mobility Training, Endurance Training, Safety Education and Training, Pain Management, Equipment Evaluation/Education, Home Management Training, Patient/Caregiver Training, and Positioning. Frequency: 7 visits during current hospital admission or until additional recommendations are made Barriers: Impaired balance and Decreased endurance Safety/Education Safety Safety Devices in place: All fall risk precautions in place, call light within reach, left in bed, gait belt, patient at risk for falls, nurse notified, and no alarms engaged upon entry Restraints: No Education Education Given To: patient Education Provided: OT Role, Plan of Care, Transfer Training, Equipment, Fall Prevention Education, Discharge Recommendations, and Benefits of Increasing Activity Education Method: Verbal Barriers to Learning: None Education Outcome: Verbalized Understanding, Demonstrated Understanding, and Continued Education Needed Goals Patient Stated Goal: to get stronger Encounter Problems Encounter Problems (Active) Balance Patient will tolerate standing for 3 minutes mod I at fww to allow increased independence in ADLs. Start: 06/20/24 Expected End: 07/03/24 Dressings Lower Extremities Patient will dress lower body mod I with AE PRN. Start: 06/20/24 Expected End: 07/03/24 Mobility Patient will demonstrate functional ambulation mod I with fww. Start: 06/20/24 Expected End: 07/03/24 Toileting Patient will complete toileting tasks at standard toilet with modified independence. Start: 06/20/24 Expected End: 07/03/24 Transfers Patient will complete functional transfer with rolling walker with modified independence in order to prepare for ambulation. Start: 06/20/24 Expected End: 07/03/24 Patient will perform bed mobility with modified independence in order to improve independence and prepare for out of bed mobility. Start: 06/20/24 Expected End: 07/03/24 Therapy Time Individual Co-treatment Time In 1436 Time Out 1448 Minutes 12 Lamar Garcia OT Patient's Occupational Therapy Plan of Care supervision is transferred to a [facility] Therapy Services Occupational Therapist. Goals and/or treatment plan was established in collaboration with patient/family/other representatives. Images from the original note were not included. PHYSICAL THERAPY [facility] Initial Evaluation Name/MRN: Izabela London ([id number]) Evaluation Date: 06/20/2024 Date of : 1940 Admission Date: 06/20/2024 9:46 AM Age: 84 y.o. Room/Bed: Having reviewed the treatment plan and goals for this patient, I certify that the plan of care below is medically necessary and appropriate. Discharge Recommendation: Penitentiary Facility, Continue to assess pending progress Equipment Needed: No (pt has own FWW) Assessment IMPRESSION: Pt is an 84 y.o. male admitted 06/20 with pressure ulcers on sacrum, generalized weakness. Pt was previously independent with functional mobility with FWW. Pt is currently requiring mod A x1 for bed mobility, CGA for functional transfers, CGA to min A for ambulation with FWW. Pt is currently limited by endurance, fatigue and will benefit from acute skilled PT to address current deficits. Recommend SNF pending progress. Admitting Diagnosis: admitted 06/20 with pressure ulcers on sacrum, generalized weakness. 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, blood transfusions CAD (coronary artery disease) History of blood transfusion Hyperlipidemia Hypertension Prostate cancer (HCC) Past Surgical History: Past Surgical History: Procedure Laterality Date BACK SURGERY 2014 BONE GRAFT 1989 broken foot- bone graft COLONOSCOPY CORONARY ANGIOPLASTY WITH STENT PLACEMENT 08/2012 EYE SURGERY Bilateral cataracts JOINT REPLACEMENT SKIN CANCER EXCISION left ear STENT CENTRAL VEIN AV GRAFT TONSILLECTOMY AND ADENOIDECTOMY (HISTORICAL) 1944 TOTAL KNEE ARTHROPLASTY Left 07/05/2019 Admission Diagnosis: Patient Active Problem List Diagnosis Date Noted Failure to thrive in adult 06/20/2024 Weakness of both lower extremities 02/07/2024 Gait disorder 02/07/2024 Right distal ureteral calculus 12/02/2021 Carotid stenosis, asymptomatic, bilateral 05/21/2021 Dyslipidemia 05/21/2021 Obesity, Class I, BMI 30-34.9 05/21/2021 Other hyperlipidemia 05/21/2021 Status post percutaneous transluminal coronary angioplasty 05/21/2021 Increasing prostate specific antigen (PSA) level after treatment for malignant neoplasm of prostate 10/04/2020 Malignant neoplasm metastatic to bone (HCC) 12/02/2019 Prostate cancer (HCC) 11/22/2019 Elevated PSA 08/05/2019 Arthritis of knee, left 07/06/2019 Arthritis of left knee 07/06/2019 History of heart artery stent 07/18/2018 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 07/18/2018 Drug-induced polyneuropathy (HCC) 07/18/2018 Pure hypercholesterolemia 07/18/2018 Essential hypertension 07/18/2018 Hydrocele 08/07/2017 Personal history of urinary calculi 05/05/2017 Nocturia 05/05/2017 Calculus of kidney 05/05/2017 Spermatocele of epididymis, single 05/05/2017 History of Burkitt's lymphoma 01/13/2016 Medical Precautions: No active isolations Proper PPE donned/doffed in accordance with facility standards. Fall Risk: (Low Risk) (High Risk) Precautions/Restrictions: N/A Family/Caregiver Present: spouse Overall Cognitive Status: WFL Overall Orientation Status: Oriented x4 Vision: wears glasses at all times and and are being used during the eval Hearing: normal Social/Functional History Patient admitted from home. 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 Pt requires mod A x1 for BLE management to elevate into bed. Transfers Sit to stand: Contact Guard Stand to sit: Contact Guard Pt completes sit<->stand from elevated ED bed to FWW. Pt requires cues for hand placement. CGA provided to monitor safety and stability. Ambulation Ambulation 1 Assistive device(s) used: Front wheeled walker Assist level: Contact Guard, Min Assist Distance (ft): ~40 feet x1 Quality of gait: reciprocal stepping, slow reji Pt demos short, reciprocal gait pattern, decreased gait speed. Pt requires fluctuating min A to CGA for general stability. Distance limited by fatigue. Outcome Measures AM-PAC How much HELP from another person do you currently need Turning from your back to your side while in a flat bed without using bedrails?: A Lot Moving from lying on your back to sitting on the side of a flat bed without using bedrails?: A Lot Moving to and from a bed to a chair (including a wheelchair)?: A Little Standing up from a chair using your arms (wheelchair or bedside chair)?: A Little Walking in a hospital room?: A Little Stair climbing assessed?: No AM-PAC Inpatient Mobility Raw Score (No Stairs) : 13 Plan Pt would benefit from skilled acute PT services to address Strengthening, Gait Training, Balance Training, Functional Mobility Training, Endurance Training, Safety Education and Training, Stair Training, Pain Management, Equipment Evaluation/Education, Patient/Caregiver Training, and Positioning. Frequency: 5 visits during current hospital admission or until additional recommendations are made Barriers: Pain, Impaired balance, Lower extremity weakness, Decreased endurance, Stairs at home, and Long standing deficits Safety/Education Safety Safety Devices in place: All fall risk precautions in place, call light within reach, left in bed, gait belt, patient at risk for falls, and no alarms engaged upon entry Restraints: N/A Education Education Given To: patient and spouse Education Provided: PT Role, PT Goals, Plan of Care, Transfer Training, Energy Conservation, Discharge Recommendations, and Benefits of Increasing Activity Education Method: Verbal Barriers to Learning: None Education Outcome: Verbalized Understanding, Demonstrated Understanding, and Continued Education Needed Goals Patient Stated Goal: Pt did not state Encounter Problems Encounter Problems (Active) Exercise Patient will complete lower extremity exercises for 1-2 sets / 5-10 reps in order to improve strength and activity tolerance for mobility. Start: 06/20/24 Expected End: 06/27/24 Mobility Patient will ambulate 100 feet with modified independence and rolling walker in order to improve safety and independence with mobility. Start: 06/20/24 Expected End: 06/27/24 Patient will ascend and descend 2 stairs with one railing and CGA in order to safely negotiate home. Start: 06/20/24 Expected End: 06/27/24 Transfers Patient will perform bed mobility with modified independence in order to improve independence and prepare for out of bed mobility. Start: 06/20/24 Expected End: 06/27/24 Patient will complete functional transfer with rolling walker with modified independence in order to prepare for ambulation. Start: 06/20/24 Expected End: 06/27/24 Therapy Time Individual Co-treatment Time In 1436 (co-eval with OT) Time Out 1448 Minutes 12 Carlene Paz PT Patient's Physical Therapy Plan of Care supervision is transferred to a [facility] Therapy Services Physical Therapist. Goals and/or treatment plan was established in collaboration with patient/family/other representatives. documented in this encounter [facility] 06-24-2024 Miscellaneous Notes Problem: Safety - Adult Goal: Free from fall injury Outcome: Progressing Problem: Chronic Conditions and Co-morbidities Goal: Patient's chronic conditions and co-morbidity symptoms are monitored and maintained or improved Outcome: Progressing Problem: Skin/Tissue Integrity - Adult Goal: Skin integrity remains intact Outcome: Progressing Patient Choice Patient Name: IZABELA LONDON Date of : 1940 All Providers Sent Referral Name: [facility] Phone: [phone] Address: [address] [place] [address] [facility] Address: [address] [place], [place] [id number] Case Management Daily Note/Update Discharge Plan: [facility] Auth Status: approved Discharge Orders: yes - dated 06/23 but confirmed with attending to remain valid today CHAU Complete: yes Med Rec Complete: yes 7000/PASRR: not needed, per facility Transport: family wishes to handle - bedside RN will call to arrange time with family Notified Family: bedside RN will notify when calling to arrange transport time Notified Facility: yes, via [facility]Port Notified RN: yes - RN will notify patient AVS & MAR: sent via [facility] Chart reviewed. Checked [facility]Port - auth received and facility updated but pending response back. Messaged again to confirm ability to accept today. Received response back from facility - bed available today. Discharge orders are in from yesterday. Messaged attending to confirm orders are still valid. Attending response back confirming discharge orders remain valid - patient can be discharged today. Will wait until a more reasonable hour to contact family as they intend to transport patient. Messaged bedside RN to notify of confirmed discharge. Provided number to call report. Updated that family wishes to handle transport. Stated TCC would notify and setup transport time with family or bedside RN could handle it if she wished to establish a time within her schedule. Awaiting decision. Bedside RN responded, stating she will call family to arrange transport time. Requested she give the facility a cushion of time when calling report so the patient doesn't show up immediately after she calls. Expected Discharge, Rapid Rounding, and Discharge Milestones / Delays updated as appropriate. Problem: Safety - Adult Goal: Free from fall injury Outcome: Progressing Problem: Chronic Conditions and Co-morbidities Goal: Patient's chronic conditions and co-morbidity symptoms are monitored and maintained or improved Outcome: Progressing Problem: Skin/Tissue Integrity - Adult Goal: Skin integrity remains intact Outcome: Progressing Goal: Incisions, wounds, or drain sites healing without S/S of infection Outcome: Progressing Problem: Problem Interventions Goal: Assess Nutritional Intake Outcome: Progressing Problem: Knowledge Deficit Goal: Patient/family/caregiver demonstrates understanding of disease process, treatment plan, medications, and discharge instructions Outcome: Progressing Problem: Potential for Compromised Skin Integrity Goal: Skin Integrity is Maintained or Improved Outcome: Progressing Goal: Nutritional status is improving Outcome: Progressing Problem: Urinary Incontinence Goal: Perineal skin integrity is maintained or improved Outcome: Progressing The patient is Moderately Stable - Low risk of patient condition declining or worsening The patient's goals for the shift include abent of fall The clinical goals for the shift include absent of fall [facility] informed by [facility] that pt needs to bring Xtandi medication. Pt and spouse informed to bring. Tcc placed a call to Pt's spouse Lori to update and Lori agrees to plan. Confirmed that family wants to transport pt when dc ready Tcc following for insurance auth. Images from the original note were not included. Care Management Progress Note Tcc met with pt at Bedside. Tcc confirmed [facility] accepted. Pt informed that [facility] [place] [facility] all [facility] and Memory care only. Pt verbalized okay with [facility]. Tcc completed [facility] precert request and Tasked SOCIAL INSURANCE SPECIALIST director to initiate precert [facility]. DCP [facility]. Family asking to transport at dc. Tcc tasked [facility] to follow up should pt not be dc ready this afternoon. Tcc also placed secure chat message to care team to update on DCP. Discharge Milestones and Delays Expected date/time: 06/23/[address] discharge order Complete med reconciliation Case mgmt discharge readiness Clinical Stability Diagnostic Workup Imaging Results Patient Education Complete Expected Discharge History Expected Date/Time Set By Reviewed At 06/23/2024 Zully Dorman RN 06/23/2024 10:17 AM Tcc esstimate 06/23/2024 Zully Dorman RN 06/22/2024 8:59 AM 06/22/2024 Maria Antonia Baker MD 06/21/2024 1:35 PM 06/23/2024 Judy Casanova PA-C 06/20/2024 4:18 PM 06/23/2024 Judy Casanova PA-C 06/20/2024 12:05 PM Length of Stay (Days): 1 GMLOS: No GMLOS Documented Problem: Safety - Adult Goal: Free from fall injury Outcome: Progressing Problem: Chronic Conditions and Co-morbidities Goal: Patient's chronic conditions and co-morbidity symptoms are monitored and maintained or improved Outcome: Progressing Problem: Skin/Tissue Integrity - Adult Goal: Skin integrity remains intact Outcome: Progressing Goal: Incisions, wounds, or drain sites healing without S/S of infection Outcome: Progressing Problem: Problem Interventions Goal: Assess Nutritional Intake Outcome: Progressing Problem: Knowledge Deficit Goal: Patient/family/caregiver demonstrates understanding of disease process, treatment plan, medications, and discharge instructions Outcome: Progressing Problem: Potential for Compromised Skin Integrity Goal: Skin Integrity is Maintained or Improved Outcome: Progressing Goal: Nutritional status is improving Outcome: Progressing Problem: Urinary Incontinence Goal: Perineal skin integrity is maintained or improved Outcome: Progressing The patient is Moderately Stable - Low risk of patient condition declining or worsening The patient's goals for the shift include abent of fall The clinical goals for the shift include absent of fall Referral placed to SNF - 1. [facility] [address]. [facility] via [facility] per TCC request. Await review and response regarding ability to accept. TCC notified. Tc cmet with pt and family to review skilled rehab recommendations. List provided. Tcc was informed by pt and family that they would like referral placed to [facility] and [facility] [place]. Tcc tasked [facility] to place referrals. Problem: Safety - Adult Goal: Free from fall injury Outcome: Progressing Problem: Chronic Conditions and Co-morbidities Goal: Patient's chronic conditions and co-morbidity symptoms are monitored and maintained or improved Outcome: Progressing Problem: Skin/Tissue Integrity - Adult Goal: Skin integrity remains intact Outcome: Progressing Problem: Safety - Adult Goal: Free from fall injury Outcome: Progressing Problem: Chronic Conditions and Co-morbidities Goal: Patient's chronic conditions and co-morbidity symptoms are monitored and maintained or improved Outcome: Progressing Problem: Skin/Tissue Integrity - Adult Goal: Skin integrity remains intact Outcome: Progressing Goal: Incisions, wounds, or drain sites healing without S/S of infection Outcome: Progressing Problem: Safety - Adult Goal: Free from fall injury Outcome: Progressing met Set bed and chair brake on/ call light in his reach Problem: Skin/Tissue Integrity - Adult Goal: Skin integrity remains intact Outcome: Progressing met Repositioning/barrier cream apply Problem: Safety - Adult Goal: Free from fall injury Outcome: Progressing Problem: Chronic Conditions and Co-morbidities Goal: Patient's chronic conditions and co-morbidity symptoms are monitored and maintained or improved Outcome: Progressing documented in this encounter [facility] 06-24-2024 Note Formatting of this n ote might be different from the original. Patient Choice Patient Name: IZABELA LONDON Date of : 1940 All Providers Sent Referral Name: [facility] Phone: [phone] Address: [address] [place] [id number] [facility] Address: [address] [place] [id number] [facility] 06-24-2024 Note Formatting of this n ote might be different from the original. Patient Choice Patient Name: IZABELA LONDON Date of : 1940 All Providers Sent Referral Name: [facility] Phone: [phone] Address: [address] [place] [id number] [facility] Address: [address] [place] [id number] [facility] 06-24-2024 Note Formatting of this n ote might be different from the original. Case Management Daily Note/Update Discharge Plan: [facility] Auth Status: approved Discharge Orders: yes - dated 06/23 but confirmed with attending to remain valid today CHAU Complete: yes Med Rec Complete: yes 7000/PASRR: not needed, per facility Transport: family wishes to handle - bedside RN will call to arrange time with family Notified Family: bedside RN will notify when calling to arrange transport time Notified Facility: yes, via [facility]Port Notified RN: yes - RN will notify patient AVS & MAR: sent via [facility]Port Chart reviewed. Checked [facility]Port - auth received and facility updated but pending response back. Messaged again to confirm ability to accept today. Received response back from facility - bed available today. Discharge orders are in from yesterday. Messaged attending to confirm orders are still valid. Attending response back confirming discharge orders remain valid - patient can be discharged today. Will wait until a more reasonable hour to contact family as they intend to transport patient. Messaged bedside RN to notify of confirmed discharge. Provided number to call report. Updated that family wishes to handle transport. Stated TCC would notify and setup transport time with family or bedside RN could handle it if she wished to establish a time within her schedule. Awaiting decision. Bedside RN responded, stating she will call family to arrange transport time. Requested she give the facility a cushion of time when calling report so the patient doesn't show up immediately after she calls. Expected Discharge, Rapid Rounding, and Discharge Milestones / Delays updated as appropriate. [facility] 06-24-2024 Note Formatting of this n ote might be different from the original. Case Management Daily Note/Update Discharge Plan: [facility] Auth Status: approved Discharge Orders: yes - dated 06/23 but confirmed with attending to remain valid today CHAU Complete: yes Med Rec Complete: yes 7000/PASRR: not needed, per facility Transport: family wishes to handle - bedside RN will call to arrange time with family Notified Family: bedside RN will notify when calling to arrange transport time Notified Facility: yes, via [facility]Port Notified RN: yes - RN will notify patient AVS & MAR: sent via [facility]Port Chart reviewed. Checked [facility]Port - auth received and facility updated but pending response back. Messaged again to confirm ability to accept today. Received response back from facility - bed available today. Discharge orders are in from yesterday. Messaged attending to confirm orders are still valid. Attending response back confirming discharge orders remain valid - patient can be discharged today. Will wait until a more reasonable hour to contact family as they intend to transport patient. Messaged bedside RN to notify of confirmed discharge. Provided number to call report. Updated that family wishes to handle transport. Stated TCC would notify and setup transport time with family or bedside RN could handle it if she wished to establish a time within her schedule. Awaiting decision. Bedside RN responded, stating she will call family to arrange transport time. Requested she give the facility a cushion of time when calling report so the patient doesn't show up immediately after she calls. Expected Discharge, Rapid Rounding, and Discharge Milestones / Delays updated as appropriate. [facility] 06-24-2024 Plan of care note Problem: Safety - Adult Goal: Free from fall injury Outcome: Progressing Problem: Chronic Conditions and Co-morbidities Goal: Patient's chronic conditions and co-morbidity symptoms are monitored and maintained or improved Outcome: Progressing Problem: Skin/Tissue Integrity - Adult Goal: Skin integrity remains intact Outcome: Progressing Goal: Incisions, wounds, or drain sites healing without S/S of infection Outcome: Progressing Problem: Problem Interventions Goal: Assess Nutritional Intake Outcome: Progressing Problem: Knowledge Deficit Goal: Patient/family/caregiver demonstrates understanding of disease process, treatment plan, medications, and discharge instructions Outcome: Progressing Problem: Potential for Compromised Skin Integrity Goal: Skin Integrity is Maintained or Improved Outcome: Progressing Goal: Nutritional status is improving Outcome: Progressing Problem: Urinary Incontinence Goal: Perineal skin integrity is maintained or improved Outcome: Progressing The patient is Moderately Stable - Low risk of patient condition declining or worsening The patient's goals for the shift include abent of fall The clinical goals for the shift include absent of fall [facility] 06-23-2024 Hospital course Narrative [facility] Hospitalist Discharge Summary Izabela London : 1940 Admit date: 06/20/2024 Discharge date: 06/24/2024 Admitting Physician: Maria Antonia Baker MD Primary Care Physician: Jeramie Ching MD Visit Status: Admission Code Status: Full Code Discharge Diagnoses: Stage III pressure ulcer of bilateral buttocks, present on admission Antibiotic induced diarrhea -resolved Recent bronchitis-improved Generalized weakness due to volume loss Inability to ambulate Mild elevated LFTs Essential hypertension Hyperlipidemia Coronary artery disease Prostate cancer Burkitt's lymphoma Procedures: None Hospital Course: Patient is a 84-year-old gentleman who was admitted for generalized weakness, dehydration due to diarrhea antibiotic associated and worsening of buttock/sacral wounds, he recently had bronchitis and was prescribed doxycycline, however after taking few doses he developed diarrhea which resolved after discontinuation of the antibiotic. He developed stage III pressure ulcers of the buttocks due to diarrhea and an ambulation, admitted and wound care was given with chlorhexidine cleansing, collagenase ointment and saline moist dressings placement, wound care was following, received PT and OT who recommended long-term facility, given IV fluids, able to tolerate oral diet well Labs reviewed Consults: Wound care, physical therapy, Occupational Therapy Discharge Instructions: Diet: Adult diet Regular; Low Sodium (2 gm) Activity: as tolerated Recommended Outpatient Tests: Liver function tests in 6 weeks Disposition: Patient discharged in stable condition to SNF. Greater than 40 minutes spent discharging the patient and coming up with patient discharge plan- labs reviewed Vitals: BP 137/64 (BP Location: Left arm, Patient Position: Sitting) Pulse 61 Temp 36.5 C (97.7 F) (Temporal) Resp 18 Ht 5' 11 (1.803 m) SpO2 96% BMI 28.17 kg/m Pulse Ox: SpO2 Av.5 % Min: 93 % Max: 96 % Supplemental O2: General appearance: Overall feels weak but improved since admission no apparent distress, appears stated age and cooperative with exam Respiratory: Normal respiratory effort. Clear to auscultation, bilaterally without Rales/Wheezes/Rhonchi. Cardiovascular: Regular rate and rhythm with normal S1/S2 without murmurs, rubs or gallops. Abdomen: Soft, non-tender, non-distended with normal bowel sounds. No rebound or guarding. Musculoskeletal: No clubbing, cyanosis or edema bilaterally. Full range of motion without deformity. Skin: Stage III pressure ulcers of bilateral buttocks and inner aspects present on admission Discharge Medications: Medication List START taking these medications ascorbic acid 500 MG tablet Commonly known as: Vitamin C Take 1 tablet (500 mg) by mouth daily. Start taking on: June 24, 2024 collagenase 250 UNIT/GM ointment Apply topically daily. polyethylene glycol (PEG) 3350 17 g packet Commonly known as: Miralax Take 17 g by mouth Daily as needed (constipation) for up to 7 days. zinc sulfate 220 (50 Zn) MG capsule Commonly known as: Zincate Take 1 capsule (50 mg of elemental zinc) by mouth daily. Start taking on: June 24, 2024 CHANGE how you take these medications carvedilol 3.125 MG tablet Commonly known as: Coreg 1 po bid What changed: how much to take how to take this when to take this CONTINUE taking these medications albuterol 108 (90 Base) MCG/ACT inhaler Commonly known as: Ventolin HFA Inhale 2 puffs every 4 hours as needed for wheezing or shortness of breath. aspirin 81 MG EC tablet benzonatate 100 MG capsule Commonly known as: Tessalon Take 1 capsule (100 mg) by mouth 3 times daily as needed for cough. Do not crush or chew. Calcium Carb-Cholecalciferol 500-5 MG-MCG tablet tablet Take 1 tablet by mouth daily. cholecalciferol 125 MCG (5000 UT) capsule Commonly known as: Vitamin D-3 lisinopril 10 MG tablet Take 1 tablet (10 mg) by mouth daily. simvastatin 20 MG tablet Commonly known as: Zocor TAKE 1 TABLET BY MOUTH EVERY DAY IN THE EVENING tamsulosin 0.4 MG 24 hr capsule Commonly known as: Flomax Xtandi 40 MG chemo capsule Generic drug: enzalutamide TAKE 4 CAPSULES BY MOUTH DAILY Where to Get Your Medications These medications were sent to [facility] [address] [place] [id number] Hours: Wednesday to Wednesday 10 am to 6 pm ascorbic acid 500 MG tablet collagenase 250 UNIT/GM ointment polyethylene glycol (PEG) 3350 17 g packet zinc sulfate 220 (50 Zn) MG capsule Recommended Follow-up: Wound Care [address] [id number] Complexity of Follow up: [] Moderate Complexity: follow up within 7-14 calendar days ([address]) [x] Severe Complexity: follow up within 7 calendar days ([address]170) Follow up Testing, Pending results or Referrals at Transitional Care Visit: [x] yes [] No Instructions to MA: Please call patient on day after discharge (must document patient contacted within 2 business days of discharge). Follow up questions for MA: 1. Did you get medications filled and taking them as instructed from discharge? 2. Are you following your discharge instructions from your hospital stay? 3. Please confirm patient is scheduled for a follow up appointment within the above time frame. A total of more than 45 mins has been spent in discharging the patient. Signed: @ @ Division of Hospitalist Medicine Inpatient Medical Services 06/23/2024, 3:10 PM This report was created using the [employer] voice-activated system. Despite prompt dictation and careful editorial review, there may be subtle contextual errors in this report, due to misrecognition of the spoken word. documented in this encounter [facility] 06-23-2024 Note Formatting of this n ote might be different from the original. Tcc informed by [facility] that pt needs to bring Xtandi medication. Pt and spouse informed to bring. [facility] 06-23-2024 Note Formatting of this n ote might be different from the original. Tcc informed by [facility] that pt needs to bring Xtandi medication. Pt and spouse informed to bring. [facility] 06-23-2024 Note Formatting of this n ote might be different from the original. Tcc placed a call to Pt's spouse Lori to update and Lori agrees to plan. Confirmed that family wants to transport pt when dc ready Tcc following for insurance auth. [facility] 06-23-2024 Note Formatting of this n ote might be different from the original. Tcc placed a call to Pt's spouse Lori to update and Lori agrees to plan. Confirmed that family wants to transport pt when dc ready Tcc following for insurance auth. [facility] 06-23-2024 Hospital Discharge instructions Alisia Manzano RN - 06/23/2024 10:25 AM EDT Images from the original note were not included. Continuity of Care Form Patient Name: Izabela London : 1940 Admit date: 06/20/2024 Discharge date: 06/24/2024 Code Status Order: Full Code Advance Directives: N Admitting Physician: Maria Antonia Baker MD PCP: Jeramie Ching MD Discharging Nurse: Kristy Manzano RN Discharging Hospital Unit/Room#: B1-158/B1-158 A Discharging Unit Emergency Contact: Extended Emergency Contact Information Primary Emergency Contact: Lori London Address: [address] [place] Relation: Spouse Secondary Emergency Contact: Jessica [place] Relation: Daughter Past Surgical History: Past Surgical History: Procedure Laterality Date BACK SURGERY 2014 BONE GRAFT 1989 broken foot- bone graft COLONOSCOPY CORONARY ANGIOPLASTY WITH STENT PLACEMENT 08/2012 EYE SURGERY Bilateral cataracts JOINT REPLACEMENT SKIN CANCER EXCISION left ear STENT CENTRAL VEIN AV GRAFT TONSILLECTOMY AND ADENOIDECTOMY (HISTORICAL) 1944 TOTAL KNEE ARTHROPLASTY Left 07/05/2019 Immunization History: Immunization History Administered Date(s) Administered COVID-19, mRNA, LNP-S, PF, 50 mcg/0.5 mL 07/31/2023 Covid-19, Pfizer Bivalent Booster, (Age 12y+), Im, 30 Mcg/0e 07/16/2022 Covid-19, Pfizer Palafox Top, Do Not Dilute, (Age 12 Y+), Im, L 01/29/2022 Influenza Whole 09/05/2009, 09/05/2009, 08/13/2011, 08/05/2012 Influenza, High Dose Seasonal, Preservative Free 08/20/2017, 08/20/2017, 08/28/2019 Influenza, High-dose Seasonal, Quadrivalent, Preservative Free 08/28/2019, 07/21/2021, 07/16/2022 Influenza, Seasonal, Quadrivalent, Adjuvanted 07/19/2020, 07/31/2023 Influenza, Unspecified 10/25/2007, 08/03/2010, 08/13/2011, 08/05/2012, 08/09/2014, 07/25/2015, 09/09/2016, 01/26/2019, 07/09/2020 Influenza, injectable, quadrivalent 07/18/2018 Influenza, seasonal, injectable 10/25/2007, 08/03/2010, 08/09/2014, 08/09/2014, 07/25/2015, 09/09/2016, 07/18/2018 Novel [id number], preservative-free 12/16/2009, 12/16/2009 PPD Test 05/11/2015 Pfizer SARS-CoV-2 Vaccination 11/23/2020, 12/13/2020, 08/10/2021 Pneumococcal Conjugate PCV 13 04/01/2017 Pneumococcal Polysaccharide PPSV23 08/06/2006 Tdap 08/09/2014, 04/01/2017 Tetanus Toxoid, Unspecified 05/25/2003 Tetanus toxoid, adsorbed 05/25/2003 Zoster, Recombinant 04/06/2019, 04/06/2019, 08/05/2019, 08/05/2019 Zoster, live 06/25/2010 Active Problems: Medical Problems Problem List * (Principal) Failure to thrive in adult Weakness of both lower extremities Gait disorder Increasing prostate specific antigen (PSA) level after treatment for malignant neoplasm of prostate History of heart artery stent History of Burkitt's lymphoma 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 Drug-induced polyneuropathy (HCC) Pure hypercholesterolemia Essential hypertension 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, left Arthritis of left knee Elevated PSA Carotid stenosis, asymptomatic, bilateral Dyslipidemia Obesity, Class I, BMI 30-34.9 Other hyperlipidemia Status post percutaneous transluminal coronary angioplasty Right distal ureteral calculus Personal history of urinary calculi Nocturia Hydrocele Overview Signed 08/10/2022 6:24 AM by Interface, Incoming Problems- [facility]path Conversion Updating Deprecated Diagnoses Calculus of kidney Spermatocele of epididymis, single Prostate cancer (HCC) Overview Signed 08/10/2022 6:24 AM by Interface, Incoming Problems- [facility] Conversion Updating Deprecated Diagnoses Isolation/Infection: No active isolations No active infections Nurse Assessment: Last Vital Signs: BP 137/64 (BP Location: Left arm, Patient Position: Sitting) Pulse 61 Temp 36.5 C (97.7 F) (Temporal) Resp 18 Ht 1.803 m (5' 11) SpO2 96% BMI 28.17 kg/m Last documented pain score (0-10 scale): Last Weight: Wt Readings from Last 1 Encounters: 06/06/24 91.6 kg (202 lb) Mental Status: CHAU Patient Mental Status: oriented, alert, and confused at times IV Access: CHAU IV Access: None Nursing Mobility/ADLs: Walking Minimal assistance Transfer Minimal assistance Bathing Minimal assistance Dressing Minimal assistance Toileting Minimal assistance Feeding Minimal assistance Construction Management Instructor Minimal assistance Med Delivery no Wound Care Documentation and Therapy: Wound/Incision 06/20/24 Pressure Injury Buttock Left (Active) Site Assessment Unable to assess 06/22/24 2300 Kylah-Wound Assessment Intact;Red 06/21/24 0853 Wound Length (cm) 1 cm 06/20/24 1637 Wound Width (cm) 1 cm 06/20/24 1637 Wound Surface Area (cm^2) 1 cm^2 06/20/24 1637 Odor None 06/21/24 2101 Drainage Amount None 06/21/24 2101 Treatments Moisture barrier ointment 06/21/24 210 Primary Dressing ABD 06/21/24 210 Dressing Status Clean, dry & intact 06/22/24 2300 Number of days: 2 Wound/Incision 06/20/24 Pressure Injury Buttock Right (Active) Site Assessment Unable to assess 06/22/24 2300 Kylah-Wound Assessment Intact;Red 06/21/24 0853 Wound Length (cm) 4 cm 06/20/24 1637 Wound Width (cm) 3 cm 06/20/24 1637 Wound Surface Area (cm^2) 12 cm^2 06/20/24 1637 Odor None 06/21/24 2101 Drainage Amount None 06/21/24 2101 Treatments Moisture barrier ointment 06/21/24 210 Primary Dressing ABD 06/21/24 2101 Dressing Status Clean, dry & intact 06/22/24 2300 Number of days: 2 Elimination: Continence: Bowel: yes Bladder: yes Urinary Catheter: None Colostomy/Ileostomy/Ileal Conduit: None Date of Last BM: 06/24/2024 Intake/Output Summary (Last 24 hours) at 06/23/2024 1023 Last data filed at 06/23/2024 0739 Gross per 24 hour Intake 240 ml Output 1900 ml Net -1660 ml I/O last 3 completed shifts: In: 840 [P.O.:840] Out: 4725 [Urine:4725] Safety Concerns: at risk for falls Impairments/Disabilities: hearing Nutrition Therapy: Current Nutrition Therapy: Oral diet: general and low sodium (2gm) Routes of Feeding: oral Liquids: thin liquids Daily Fluid Restriction: no Last Modified Barium Swallow with Video (Video Swallowing Test): not done Treatments at the Time of Hospital Discharge: Respiratory Treatments: none Oxygen Therapy: is not on home oxygen therapy. Ventilator: No ventilator support Rehab Therapies: physical therapy and occupational therapy Weight Bearing Status/Restrictions: no restriction Other Medical Equipment (for information only, NOT a DME order): none Other Treatments: Bilateral buttocks: Cleanse with normal saline, pat dry, apply santyl ointment and cover with foam dressing every day and prn Patient's personal belongings (please select all that are sent with patient): phani RN SIGNATURE: MANAGEMENT/SOCIAL WORK SECTION Inpatient Status Date: 06/20/2024 Discharging to Facility/ Agency Name: [facility] Address: [address] [place] [address] Fax: Dialysis Facility (if applicable) 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 signature: ICIAN SECTION Name: Izabela London Prognosis: Good Condition at Discharge: stable Rehab Potential (if transferring to Rehab): good Recommended Labs or Other Treatments After Discharge: PT/OT, wound care to the buttocks and sacrum The individual is being admitted to a nursing facility directly from an [facility] or a unit of a [facility] that is not operated by or licensed by [facility] under section 5119.14 or 5160-3-15.1 5 The individual requires the level of services provided by a nursing facility for the condition for which he or she was treated in the hospital and, Physician Certification: I certify the above information and transfer of Izabela London is necessary for the continuing treatment of the diagnosis listed and that he requires long-term facility for less than 30 days. Update Admission H&P: No change in H&P PHYSICIAN SIGNATURE: documented in this encounter [facility] 06-23-2024 Note Formatting of this n ote is different from the original. Images from the original note were not included. Care Management Progress Note Tcc met with pt at Bedside. Tcc confirmed [facility] accepted. Pt informed that [facility] [place] is all AL and Memory care only. Pt verbalized okay with [facility]. Tcc completed [facility] precert request and Tasked SOCIAL INSURANCE SPECIALIST director to initiate precert with [facility]. DCP [facility]. Family asking to transport at co. Tcc tasked [facility] to follow up should pt not be dc ready this afternoon. Tcc also placed secure chat message to care team to update on DCP. Discharge Milestones and Delays Expected date/time: 06/23/[address] discharge order Complete med reconciliation Case mgmt discharge readiness Clinical Stability Diagnostic Workup Imaging Results Patient Education Complete Expected Discharge History Expected Date/Time Set By Reviewed At 06/23/2024 Zully Dorman RN 06/23/2024 10:17 AM Tcc esstimate 06/23/2024 Zully Dorman RN 06/22/2024 8:59 AM 06/22/2024 Maria Antonia Baker MD 06/21/2024 1:35 PM 06/23/2024 Judy Casanova PA-C 06/20/2024 4:18 PM 06/23/2024 Judy Casanova PA-C 06/20/2024 12:05 PM Length of Stay (Days): 1 GMLOS: No GMLOS Documented [facility] 06-23-2024 Note Formatting of this n ote is different from the original. Images from the original note were not included. Care Management Progress Note Tcc met with pt at Bedside. Tcc confirmed [facility] accepted. Pt informed that [facility] in [place] is all AL and Memory care only. Pt verbalized okay with [facility]. Tcc completed [facility] precert request and Tasked SOCIAL INSURANCE SPECIALIST director to initiate precert with [facility]. DCP [facility]. Family asking to transport at dc. Tcc tasked [facility] to follow up should pt not be dc ready this afternoon. Tcc also placed secure chat message to care team to update on DCP. Discharge Milestones and Delays Expected date/time: 06/23/[address] discharge order Complete med reconciliation Case mgmt discharge readiness Clinical Stability Diagnostic Workup Imaging Results Patient Education Complete Expected Discharge History Expected Date/Time Set By Reviewed At 06/23/2024 Zully Dorman RN 06/23/2024 10:17 AM Tcc esstimate 06/23/2024 Zully Dorman RN 06/22/2024 8:59 AM 06/22/2024 Maria Antonia Baker MD 06/21/2024 1:35 PM 06/23/2024 Judy Casanova PA-C 06/20/2024 4:18 PM 06/23/2024 Judy Casanova PA-C 06/20/2024 12:05 PM Length of Stay (Days): 1 GMLOS: No GMLOS Documented [facility] 06-23-2024 Plan of care note Problem: Safety - Adult Goal: Free from fall injury Outcome: Progressing Problem: Chronic Conditions and Co-morbidities Goal: Patient's chronic conditions and co-morbidity symptoms are monitored and maintained or improved Outcome: Progressing Problem: Skin/Tissue Integrity - Adult Goal: Skin integrity remains intact Outcome: Progressing Goal: Incisions, wounds, or drain sites healing without S/S of infection Outcome: Progressing Problem: Problem Interventions Goal: Assess Nutritional Intake Outcome: Progressing Problem: Knowledge Deficit Goal: Patient/family/caregiver demonstrates understanding of disease process, treatment plan, medications, and discharge instructions Outcome: Progressing Problem: Potential for Compromised Skin Integrity Goal: Skin Integrity is Maintained or Improved Outcome: Progressing Goal: Nutritional status is improving Outcome: Progressing Problem: Urinary Incontinence Goal: Perineal skin integrity is maintained or improved Outcome: Progressing The patient is Moderately Stable - Low risk of patient condition declining or worsening The patient's goals for the shift include abent of fall The clinical goals for the shift include absent of fall [facility] 06-22-2024 Note Formatting of this n ote might be different from the original. Referral placed to [facility] - 1. [facility] 2. [facility] per TCC request. Await review and response regarding ability to accept. TCC notified. Electronically signed by [facility] Mary Ruiz [facility] 06-22-2024 Note Formatting of this n ote might be different from the original. Referral placed to [facility] - 1. [facility] [address] [facility] per TCC request. Await review and response regarding ability to accept. TCC notified. Electronically signed by [facility] Mary Ruiz [facility] 06-22-2024 Note Formatting of this n ote might be different from the original. Tc cmet with pt and family to review skilled rehab recommendations. List provided. Tcc was informed by pt and family that they would like referral placed to [facility]. Tcc tasked SOCIAL INSURANCE SPECIALIST to place referrals. [facility] 06-22-2024 Note Formatting of this n ote might be different from the original. Tc cmet with pt and family to review skilled rehab recommendations. List provided. Tcc was informed by pt and family that they would like referral placed to [facility]. Tcc tasked [facility] to place referrals. [facility] 06-22-2024 Plan of care note Problem: Safety - Adult Goal: Free from fall injury Outcome: Progressing Problem: Chronic Conditions and Co-morbidities Goal: Patient's chronic conditions and co-morbidity symptoms are monitored and maintained or improved Outcome: Progressing Problem: Skin/Tissue Integrity - Adult Goal: Skin integrity remains intact Outcome: Progressing T [facility] 06-22-2024 Plan of care note Problem: Safety - Adult Goal: Free from fall injury Outcome: Progressing Problem: Chronic Conditions and Co-morbidities Goal: Patient's chronic conditions and co-morbidity symptoms are monitored and maintained or improved Outcome: Progressing Problem: Skin/Tissue Integrity - Adult Goal: Skin integrity remains intact Outcome: Progressing Goal: Incisions, wounds, or drain sites healing without S/S of infection Outcome: Progressing T [facility] 06-21-2024 Consult note Formatting of th is note is different from the original. Images from the original note were not included. [facility] Care CONSULT Note Izabela London AGE: 84 y.o. GENDER: male : 1940 Subjective: HISTORY of PRESENT ILLNESS HPI Izabela London is a 84 y.o. male who presents for a wound consult. History of Wound Context: wounds on bilateral buttock from diarrhea and laying in it. Was prescribed antibiotic which caused the diarrhea. Patient able to stand with walker . In room sitting in recliner , encourage mobility . Nurse in room doing dressing changes. Discussed plan of care with RN and patient. 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 07/18/2018 Drug-induced polyneuropathy (HCC) 07/18/2018 Pure hypercholesterolemia 07/18/2018 Essential hypertension 07/18/2018 Malignant neoplasm metastatic to bone (HCC) 12/02/2019 Arthritis of knee, left 07/06/2019 Arthritis of left knee 07/06/2019 Elevated PSA 08/05/2019 Carotid stenosis, asymptomatic, bilateral 05/21/2021 Dyslipidemia 05/21/2021 Obesity, Class I, BMI 30-34.9 05/21/2021 Other hyperlipidemia 05/21/2021 Status post percutaneous transluminal coronary angioplasty 05/21/2021 Right distal ureteral calculus 12/02/2021 Personal history of urinary calculi 05/05/2017 Nocturia 05/05/2017 Hydrocele 08/07/2017 Calculus of kidney 05/05/2017 Spermatocele of epididymis, single 05/05/2017 Prostate cancer (HCC) 11/22/2019 Weakness of both lower extremities 02/07/2024 Gait disorder 02/07/2024 Resolved Ambulatory Problems Diagnosis Date Noted No Resolved Ambulatory Problems Past Medical History: Diagnosis Date Burkitt lymphoma (HCC) 2013 CAD (coronary artery disease) History of blood transfusion Hyperlipidemia Hypertension PAST SURGICAL HISTORY Past Surgical History: Procedure Laterality Date BACK SURGERY 2014 BONE GRAFT 1989 broken foot- bone graft COLONOSCOPY CORONARY ANGIOPLASTY WITH STENT PLACEMENT 08/2012 EYE SURGERY Bilateral cataracts JOINT REPLACEMENT SKIN CANCER EXCISION left ear STENT CENTRAL VEIN AV GRAFT TONSILLECTOMY AND ADENOIDECTOMY (HISTORICAL) 1944 TOTAL KNEE ARTHROPLASTY Left 07/05/2019 FAMILY HISTORY Family History Problem Relation Name Age of Onset Cancer Father Papa 77 Colon SOCIAL HISTORY Social History Tobacco Use Smoking status: Former Current packs/day: 0.00 Average packs/day: 0.3 packs/day for 10.0 years (2.5 ttl pk-yrs) Types: Cigarettes Start date: 06/24/1967 Quit date: 06/24/1977 Years since quittin.0 Smokeless tobacco: Never Vaping Use Vaping status: Never Used Substance Use Topics Alcohol use: Yes Alcohol/week: 1.0 standard drink of alcohol Types: 1 Standard drinks or equivalent per week Drug use: No ALLERGIES Allergies Allergen Reactions Seasonal Ic [Cholestatin] MEDICATIONS No current facility-administered medications on file prior to encounter. Current Outpatient Medications on File Prior to Encounter Medication Sig Dispense Refill aspirin 81 MG EC tablet Take 81 mg by mouth in the morning. Calcium Carb-Cholecalciferol 500-5 MG-MCG tablet tablet Take 1 tablet by mouth daily. 90 tablet 3 cholecalciferol (Vitamin D-3) 125 MCG (5000 UT) capsule Take 5,000 Units by mouth in the morning. enzalutamide (Xtandi) 40 MG chemo capsule TAKE 4 CAPSULES BY MOUTH DAILY 120 capsule 3 lisinopril 10 MG tablet Take 1 tablet (10 mg) by mouth daily. 90 tablet 3 simvastatin (Zocor) 20 MG tablet TAKE 1 TABLET BY MOUTH EVERY DAY IN THE EVENING 90 tablet 3 albuterol (Ventolin HFA) 108 (90 Base) MCG/ACT inhaler Inhale 2 puffs every 4 hours as needed for wheezing or shortness of breath. 8 g 0 benzonatate (Tessalon) 100 MG capsule Take 1 capsule (100 mg) by mouth 3 times daily as needed for cough. Do not crush or chew. 42 capsule 0 carvedilol (Coreg) 3.125 MG tablet 1 po bid (Patient taking differently: Take 3.125 mg by mouth in the morning and 3.125 mg in the evening. 1 po bid.) 180 tablet 3 tamsulosin (Flomax) 0.4 MG 24 hr capsule Take 0.4 mg by mouth 2 times daily as needed. [DISCONTINUED] ibuprofen 600 MG tablet Take 1 tablet by mouth 3 times daily as needed. REVIEW OF SYSTEMS No N,V,D. No cough , no SOB . Objective: BP 127/64 (BP Location: Left arm, Patient Position: Sitting) Pulse 60 Temp 36.7 C (98.1 F) (Temporal) Resp 18 Ht 5' 11 (1.803 m) SpO2 95% BMI 28.17 kg/m PHYSICAL EXAM General appearance: in no apparent distress, alert, oriented times 3, and cooperative Skin: warm and dry Right buttock 3cm x2cm x0.1cm pink small serosang drainage surrounding skin intact Left buttock 3cm x3cm x0.1cm area pink 90% 10slough, small serosang drainage , surrounding skin intact, Pulmonary: Normal effort, no respiratory distress, no cyanosis Abdomen: soft, nontender, and nondistended Extremities: no cyanosis, clubbing or edema LABS CBC: Lab Results Component Value Date WBC 6.6 06/21/2024 HGB 11.4 (L) 06/21/2024 HCT 35.9 (L) 06/21/2024 MCV 99.4 (H) 06/21/2024 PLT 260 06/21/2024 BMP: Lab Results Component Value Date NA 135 06/21/2024 K 4.1 06/21/2024 CL 105 06/21/2024 CO2 25 06/21/2024 BUN 16 06/21/2024 CREATININE 0.44 (L) 06/21/2024 PT/INR: No results found for: PROTIME, INR Prealbumin: No results found for: PREALBUMIN Albumin:No components found for: LABALBU Sed Rate:No results found for: SEDRATE Micro: No components found for: BC Assessment/Plan: 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 Daily . And PRN . Waffle cushion Reposition frequently Recommend to follow up at [facility] Outpatient wound care center after hospital discharge. Thank you for the consult! I personally obtained the stanley and critical portions of the history and physical exam. I reviewed the labs, imaging studies, and electronic medical record. I reviewed the chart documentation and discussed the patient with treatment team members. I have edited the note to reflect my clinical findings and my assessment and plan. Please note, the time of this note does not reflect the time I saw this patient today, but the time of this documentaton. Portions of this note including HPI, ROS, impression/plan, and examination may have been copied forward from admission to today as to provide important historical information essential in contributing to medical decision making. Documentation has been reviewed and edited as necessary to support clinical decision making for today's visit and to reflect my own independent evaluation of this patient. Decision making for today's visit and to reflect my own independent evaluation of this patient. [facility] 06-21-2024 Consult note Formatting of th is note is different from the original. Images from the original note were not included. [facility] Wound Care CONSULT Note Izabela London AGE: 84 y.o. GENDER: male : 1940 Subjective: HISTORY of PRESENT ILLNESS HPI Izabela London is a 84 y.o. male who presents for a wound consult. History of Wound Context: wounds on bilateral buttock from diarrhea and laying in it. Was prescribed antibiotic which caused the diarrhea. Patient able to stand with walker . In room sitting in recliner , encourage mobility . Nurse in room doing dressing changes. Discussed plan of care with RN and patient. 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 07/18/2018 Drug-induced polyneuropathy (HCC) 07/18/2018 Pure hypercholesterolemia 07/18/2018 Essential hypertension 07/18/2018 Malignant neoplasm metastatic to bone (HCC) 12/02/2019 Arthritis of knee, left 07/06/2019 Arthritis of left knee 07/06/2019 Elevated PSA 08/05/2019 Carotid stenosis, asymptomatic, bilateral 05/21/2021 Dyslipidemia 05/21/2021 Obesity, Class I, BMI 30-34.9 05/21/2021 Other hyperlipidemia 05/21/2021 Status post percutaneous transluminal coronary angioplasty 05/21/2021 Right distal ureteral calculus 12/02/2021 Personal history of urinary calculi 05/05/2017 Nocturia 05/05/2017 Hydrocele 08/07/2017 Calculus of kidney 05/05/2017 Spermatocele of epididymis, single 05/05/2017 Prostate cancer ([facility]) 11/22/2019 Weakness of both lower extremities 02/07/2024 Gait disorder 02/07/2024 Resolved Ambulatory Problems Diagnosis Date Noted No Resolved Ambulatory Problems Past Medical History: Diagnosis Date Burkitt lymphoma (HCC) 2013 CAD (coronary artery disease) History of blood transfusion Hyperlipidemia Hypertension PAST SURGICAL HISTORY Past Surgical History: Procedure Laterality Date BACK SURGERY 2014 BONE GRAFT 1989 broken foot- bone graft COLONOSCOPY CORONARY ANGIOPLASTY WITH STENT PLACEMENT 08/2012 EYE SURGERY Bilateral cataracts JOINT REPLACEMENT SKIN CANCER EXCISION left ear STENT CENTRAL VEIN AV GRAFT TONSILLECTOMY AND ADENOIDECTOMY (HISTORICAL) 1944 TOTAL KNEE ARTHROPLASTY Left 07/05/2019 FAMILY HISTORY Family History Problem Relation Name Age of Onset Cancer Father Papa 77 Colon SOCIAL HISTORY Social History Tobacco Use Smoking status: Former Current packs/day: 0.00 Average packs/day: 0.3 packs/day for 10.0 years (2.5 ttl pk-yrs) Types: Cigarettes Start date: 06/24/1967 Quit date: 06/24/1977 Years since quittin.0 Smokeless tobacco: Never Vaping Use Vaping status: Never Used Substance Use Topics Alcohol use: Yes Alcohol/week: 1.0 standard drink of alcohol Types: 1 Standard drinks or equivalent per week Drug use: No ALLERGIES Allergies Allergen Reactions Seasonal Ic [Cholestatin] MEDICATIONS No current facility-administered medications on file prior to encounter. Current Outpatient Medications on File Prior to Encounter Medication Sig Dispense Refill aspirin 81 MG EC tablet Take 81 mg by mouth in the morning. Calcium Carb-Cholecalciferol 500-5 MG-MCG tablet tablet Take 1 tablet by mouth daily. 90 tablet 3 cholecalciferol (Vitamin D-3) 125 MCG (5000 UT) capsule Take 5,000 Units by mouth in the morning. enzalutamide (Xtandi) 40 MG chemo capsule TAKE 4 CAPSULES BY MOUTH DAILY 120 capsule 3 lisinopril 10 MG tablet Take 1 tablet (10 mg) by mouth daily. 90 tablet 3 simvastatin (Zocor) 20 MG tablet TAKE 1 TABLET BY MOUTH EVERY DAY IN THE EVENING 90 tablet 3 albuterol (Ventolin HFA) 108 (90 Base) MCG/ACT inhaler Inhale 2 puffs every 4 hours as needed for wheezing or shortness of breath. 8 g 0 benzonatate (Tessalon) 100 MG capsule Take 1 capsule (100 mg) by mouth 3 times daily as needed for cough. Do not crush or chew. 42 capsule 0 carvedilol (Coreg) 3.125 MG tablet 1 po bid (Patient taking differently: Take 3.125 mg by mouth in the morning and 3.125 mg in the evening. 1 po bid.) 180 tablet 3 tamsulosin (Flomax) 0.4 MG 24 hr capsule Take 0.4 mg by mouth 2 times daily as needed. [DISCONTINUED] ibuprofen 600 MG tablet Take 1 tablet by mouth 3 times daily as needed. REVIEW OF SYSTEMS No N,V,D. No cough , no SOB . Objective: BP 127/64 (BP Location: Left arm, Patient Position: Sitting) Pulse 60 Temp 36.7 C (98.1 F) (Temporal) Resp 18 Ht 5' 11 (1.803 m) SpO2 95% BMI 28.17 kg/m PHYSICAL EXAM General appearance: in no apparent distress, alert, oriented times 3, and cooperative Skin: warm and dry Right buttock 3cm x2cm x0.1cm pink small serosang drainage surrounding skin intact Left buttock 3cm x3cm x0.1cm area pink 90% 10slough, small serosang drainage , surrounding skin intact, Pulmonary: Normal effort, no respiratory distress, no cyanosis Abdomen: soft, nontender, and nondistended Extremities: no cyanosis, clubbing or edema LABS CBC: Lab Results Component Value Date WBC 6.6 06/21/2024 HGB 11.4 (L) 06/21/2024 HCT 35.9 (L) 06/21/2024 MCV 99.4 (H) 06/21/2024 PLT 260 06/21/2024 BMP: Lab Results Component Value Date NA 135 06/21/2024 K 4.1 06/21/2024 CL 105 06/21/2024 CO2 25 06/21/2024 BUN 16 06/21/2024 CREATININE 0.44 (L) 06/21/2024 PT/INR: No results found for: PROTIME, INR Prealbumin: No results found for: PREALBUMIN Albumin:No components found for: LABALBU Sed Rate:No results found for: SEDRATE Micro: No components found for: BC Assessment/Plan: 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 Daily . And PRN . Waffle cushion Reposition frequently Recommend to follow up at [facility] Outpatient wound care center after hospital discharge. Thank you for the consult! I personally obtained the stanley and critical portions of the history and physical exam. I reviewed the labs, imaging studies, and electronic medical record. I reviewed the chart documentation and discussed the patient with treatment team members. I have edited the note to reflect my clinical findings and my assessment and plan. Please note, the time of this note does not reflect the time I saw this patient today, but the time of this documentaton. Portions of this note including HPI, ROS, impression/plan, and examination may have been copied forward from admission to today as to provide important historical information essential in contributing to medical decision making. Documentation has been reviewed and edited as necessary to support clinical decision making for today's visit and to reflect my own independent evaluation of this patient. Decision making for today's visit and to reflect my own independent evaluation of this patient. documented in this encounter [facility] 06-21-2024 Plan of care note Problem: Safety - Adult Goal: Free from fall injury Outcome: Progressing met Set bed and chair brake on/ call light in his reach Problem: Skin/Tissue Integrity - Adult Goal: Skin integrity remains intact Outcome: Progressing met Repositioning/barrier cream apply [facility] 06-21-2024 Plan of care note Problem: Safety - Adult Goal: Free from fall injury Outcome: Progressing Problem: Chronic Conditions and Co-morbidities Goal: Patient's chronic conditions and co-morbidity symptoms are monitored and maintained or improved Outcome: Progressing [facility] 06-20-2024 Emergency department Note Pt states he would like the aspirin and Lovenox given at night. Provider Samuel notified. Wanda Becerril RN 06/20/24 1538 Wanda Becerril RN 06/20/24 1539 Wanda Becerril RN 06/20/24 153 [facility] 06-20-2024 Emergency department Note Pt states he would like the aspirin and Lovenox given at night. Provider Samuel notified. Wanda Becerril RN 06/20/24 1538 Wanda Becerril RN 06/20/24 1539 Wanda Becerril RN 06/20/24 1539 Meal ordered Wanda Becerril RN 06/20/24 1341 Barrier cream applied to buttock/wounds. Pt tolerated well. Pt was turned on left side pillow propped under buttock. Wanda Becerril RN 06/20/24 1032 Wanda Becerril RN 06/20/24 1045 Images from the original note were not included. EMERGENCY DEPARTMENT ENCOUNTER Pt Name: Izabela London Birthdate 1940 Date of evaluation: 06/20/2024 ED Provider: Judy Casanova PA-C EDcare was supervised by Dr. Cantu who independently examined and evaluated the patient. Please see their attestation note for further details. CHIEF COMPLAINT Chief Complaint Patient presents with Wound Care Pt comes to the ED today due to having bed sores on his butt. Pt is alert and oriented states he mostly sits in the chair at home and does not shift his weight pt states he has 2 open wounds. Vitals taken in triage HISTORY OF PRESENT ILLNESS (Location/Symptom, Timing/Onset, Context/Setting, Quality, Duration, Modifying Factors, Severity) Note limiting factors. I wore appropriate PPE for the entirety of this encounter. HPI Izabela London is a 84 y.o. male with past medical history significant for prostate cancer with bone who presents to the emergency department with chief complaint of bedsores. Patient reports that a couple of weeks ago he was diagnosed with bronchitis and was started on doxycycline. The doxycycline gave him diarrhea. His diarrhea resolved after his took him off of the doxycycline and started giving him Imodium. He is now off of all of these medications and is feeling fine except for he has never gained his strength back after the bronchitis. He states that when he had rhonchi as he was struggling to breathe when he laid flat so he started sleeping in a chair. Now he is too weak to get up stairs and go to bed, so he sleeps in his chair, and he spends most of his day in his chair. He is not moving often, and he is began to develop sores on his buttocks. States that the sores began during the diarrhea when he had to sit in some of his waist for couple of hours because his could not hear him calling for help. Subsequently they have tried barrier creams, Neosporin, without relief. He presented today with concern for these wounds, but he is too weak to move, he states that he cannot transfer himself in bed or in the chair, and that is been ongoing problem since the bronchitis diagnosis. His bronchitis and diarrhea have fully resolved now, but he just never bounced back like he thought he would. Nursing Notes were reviewed. 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, blood transfusions CAD (coronary artery disease) History of blood transfusion Hyperlipidemia Hypertension Prostate cancer (HCC) SURGICAL HISTORY Past Surgical History: Procedure Laterality Date BACK SURGERY 2014 BONE GRAFT 1989 broken foot- bone graft COLONOSCOPY CORONARY ANGIOPLASTY WITH STENT PLACEMENT 08/2012 EYE SURGERY Bilateral cataracts JOINT REPLACEMENT SKIN CANCER EXCISION left ear STENT CENTRAL VEIN AV GRAFT TONSILLECTOMY AND ADENOIDECTOMY (HISTORICAL) 1944 TOTAL KNEE ARTHROPLASTY Left 07/05/2019 CURRENT MEDICATIONS Previous Medications ALBUTEROL (VENTOLIN HFA) 108 (90 BASE) MCG/ACT INHALER Inhale 2 puffs every 4 hours as needed for wheezing or shortness of breath. ASPIRIN 81 MG EC TABLET Take 81 mg by mouth in the morning. BENZONATATE (TESSALON) 100 MG CAPSULE Take 1 capsule (100 mg) by mouth 3 times daily as needed for cough. Do not crush or chew. CALCIUM CARB-CHOLECALCIFEROL 500-5 MG-MCG TABLET TABLET Take 1 tablet by mouth daily. CARVEDILOL (COREG) 3.125 MG TABLET 1 po bid CHOLECALCIFEROL (VITAMIN D-3) 125 MCG (5000 UT) CAPSULE Take 5,000 Units by mouth in the morning. ENZALUTAMIDE (XTANDI) 40 MG CHEMO CAPSULE TAKE 4 CAPSULES BY MOUTH DAILY IBUPROFEN 600 MG TABLET Take 1 tablet by mouth 3 times daily as needed. LISINOPRIL 10 MG TABLET Take 1 tablet (10 mg) by mouth daily. SIMVASTATIN (ZOCOR) 20 MG TABLET TAKE 1 TABLET BY MOUTH EVERY DAY IN THE EVENING ALLERGIES Seasonal ic [cholestatin] FAMILY HISTORY Family History Problem Relation Name Age of Onset Cancer Father Papa 77 Colon SOCIAL HISTORY Social History Socioeconomic History Marital status: Tobacco Use Smoking status: Former Current packs/day: 0.00 Average packs/day: 0.3 packs/day for 10.0 years (2.5 ttl pk-yrs) Types: Cigarettes Start date: 06/24/1967 Quit date: 06/24/1977 Years since quittin.0 Smokeless tobacco: Never Vaping Use Vaping status: Never Used Substance and Sexual Activity Alcohol use: Yes Alcohol/week: 1.0 standard drink of alcohol Types: 1 Standard drinks or equivalent per week Drug use: No Sexual activity: Not Currently Partners: Female Social Determinants of Health Financial Resource Strain: Low Risk (02/03/2023) Overall Financial Resource Strain (CARDIA) Difficulty of Paying Living Expenses: Not hard at all Food Insecurity: No Food Insecurity (02/03/2023) Hunger Vital Sign Worried About Running Out of Food in the Last Year: Never true Ran Out of Food in the Last Year: Never true Transportation Needs: No Transportation Needs (02/03/2023) PRAPARE - Transportation Lack of Transportation (Medical): No Lack of Transportation (Non-Medical): No Physical Activity: Sufficiently Active (02/03/2023) Exercise Vital Sign Days of Exercise per Week: 4 days Minutes of Exercise per Session: 40 min Stress: No Stress Concern Present (02/03/2023) [employer] - Occupational Stress Questionnaire Feeling of Stress : Not at all Social Connections: Socially Integrated (02/03/2023) Social Connection and Isolation Panel [NHANES] Frequency of Communication with Friends and Family: More than three times a week Frequency of Social Gatherings with Friends and Family: Three times a week Attends [employer] Services: More than 4 times per year Active Member of Clubs or Organizations: Yes Attends Club or Organization Meetings: More than 4 times per year Marital Status: Intimate Partner Violence: Not At Risk (02/03/2023) Humiliation, Afraid, Rape, and Kick questionnaire Fear of Current or Ex-Partner: No Emotionally Abused: No Physically Abused: No Sexually Abused: No Housing Stability: Low Risk (02/03/2023) Housing Stability Vital Sign Unable to Pay for Housing in the Last Year: No Number of Places Lived in the Last Year: 1 Unstable Housing in the Last Year: No SCREENINGS PHYSICAL EXAM ED Triage Vitals [06/20/24 0944] Temp Heart Rate Resp BP 36.2 C (97.2 F) 55 16 129/63 SpO2 Temp Source Heart Rate Source Patient Position 96 % Temporal Monitor -- BP Location FiO2 (%) -- -- Physical Exam Vitals and nursing note reviewed. Constitutional: General: He is not in acute distress. Appearance: He is well-developed. He is not ill-appearing, toxic-appearing or diaphoretic. HENT: Head: Normocephalic and atraumatic. Eyes: Conjunctiva/sclera: Conjunctivae normal. Cardiovascular: Rate and Rhythm: Normal rate and regular rhythm. Pulmonary: Effort: Pulmonary effort is normal. No respiratory distress. Breath sounds: Normal breath sounds. No wheezing or rales. Abdominal: Palpations: Abdomen is soft. Tenderness: There is no abdominal tenderness. There is no right CVA tenderness, left CVA tenderness or guarding. Musculoskeletal: General: No swelling. Cervical back: Neck supple. Skin: General: Skin is warm and dry. Capillary Refill: Capillary refill takes less than 2 seconds. Coloration: Skin is pale. Comments: Stage I pressure ulcer nonblanching erythema to the sacrum. 2 small approximately dime size open areas 1 on either buttock with no active drainage that appear consistent with stage II pressure ulcers. Neurological: Mental Status: He is alert. Psychiatric: Mood and Affect: Mood normal. DIAGNOSTIC RESULTS RADIOLOGY (Per Emergency Physician): Interpretation per the Radiologist below, if available at the time of this note: No orders to display LABS: Labs Reviewed - No data to display All other labs were within normal range or not returned as of this dictation. EMERGENCY DEPARTMENT COURSE and DIFFERENTIAL DIAGNOSIS/MDM: Vitals: Vitals: 06/20/24 0944 BP: 129/63 Pulse: 55 Resp: 16 Temp: 36.2 C (97.2 F) TempSrc: Temporal SpO2: 96% The patient presented with a chief complaint of generalized weakness, functional decline, pressure ulcers. The differential diagnosis associated with this patient's presentation includes generalized weakness, functional decline, pressure ulcers. Considered dehydration, electrolyte abnormality, ACS, but these are considered less likely. Patient has been feeling generally weak since his episode of bronchitis and never bounced back. He has no focal findings on examination, and I suspect general failure to thrive over acute pathology at this time. Patient is alert, oriented, pleasant and interactive, in no apparent distress. Answers all questions appropriately. Vital signs are stable. Our workup consisted of ordering/reviewing CBC, BMP, troponin, EKG, chest x-ray. EKG nonischemic, troponin within defined in this. Laboratory evaluation is essentially benign with mild decrease in hemoglobin hematocrit at 12.8, and 39.4 respectively. BMP benign without evidence of acute kidney injury or major electrolyte abnormality. Chest x-ray shows some linear atelectasis, which may be consistent with his report of minimal activity and almost constant utilization of his recliner chair. Had shared decision-making conversation with the patient and his family during which we discussed goals of care. He feels he has been weak since his acute illness a couple of weeks ago, this is led to decreased mobility, difficulty with ADLs, and development of bedsores because he cannot get up and walk or transfer himself in bed. He has family members around that may be able to help him, and he and his are working on getting a new lift bed and some additional mobility aids at home, but have not been able to arrange these yet. Ultimately patient and family decided that they would be most comfortable with staying for PT OT evaluation and rehab versus long-term care placement. Patient will be admitted for PT OT evaluation and facility placement. I discussed this patient and their evaluation with my attending Dr. Cantu, who independently evaluated the patient, and they are in agreement with the above treatment plan and disposition. Diagnoses as of 06/21/24 1144 Failure to thrive in adult ED Medications managed: Medications - No data to display PROCEDURES: Unless otherwise noted below, none Procedures FINAL IMPRESSION No diagnosis found. DISPOSITION PATIENT REFERRED TO: No follow-up provider specified. DISCHARGE MEDICATIONS: New Prescriptions No medications on file (Comment: Please note this report has been produced using speech recognition software and may contain errors related to that system including errors in grammar, punctuation, and spelling, as well as words and phrases that may be inappropriate. If there are any questions or concerns please feel free to contact the dictating provider for clarification.) Judy Casanova PA-C (electronically signed) Emergency Medicine Provider Judy Casanova PA-C 06/21/24 1148 documented in this encounter [facility] 06-20-2024 Emergency department Note Meal ordered Wanda Becerril RN 06/20/24 1341 [facility] 06-20-2024 History and physical note Attending History and Physical Admit Date: 06/20/2024 PCP: Jeramie Ching MD CHIEF COMPLAINT: My bottom is sore Reason for Admission: Pressure ulcers of the buttocks sacral areas, due to antibiotic induced diarrhea and generalized weakness History Obtained From: Patient ED physician and the at bedside HISTORY OF PRESENT ILLNESS: Izabela is a 84 y.o. male with past medical history of prostate cancer on active treatment and Burkitt's lymphoma, hypertension, hyperlipidemia, admitted via the emergency department after he has been having antibiotic induced diarrhea due to doxycycline causing bedsores with pain and generalized weakness and inability to ambulation. Patient was recently in the ER for bronchitis and was given doxycycline which caused diarrhea, after discontinuation and with Imodium use the diarrhea is settling in, patient feels too weak to be managed at home. at bedside, in the emergency department his blood pressure was 129/63, heart rate of 55 with a normal temperature and respirations of 16, O2 sats 96% on room air, labs were obtained CBC showed WBC 7, H&H 12.8/39.4, platelets 298, BUN/creatinine 12/0.41, sodium 138, potassium 4.2 alk phos troponin is negative Patient mainly admitted for hydration and PT and OT assessments with possible placement. Past Medical History: Past Medical History: Diagnosis Date Burkitt lymphoma (HCC) 2013 chemotherapy, blood transfusions CAD (coronary artery disease) History of blood transfusion Hyperlipidemia Hypertension Prostate cancer (HCC) Past Surgical History: Past Surgical History: Procedure Laterality Date BACK SURGERY 2014 BONE GRAFT 1989 broken foot- bone graft COLONOSCOPY CORONARY ANGIOPLASTY WITH STENT PLACEMENT 08/2012 EYE SURGERY Bilateral cataracts JOINT REPLACEMENT SKIN CANCER EXCISION left ear STENT CENTRAL VEIN AV GRAFT TONSILLECTOMY AND ADENOIDECTOMY (HISTORICAL) 1944 TOTAL KNEE ARTHROPLASTY Left 07/05/2019 Social History: Social History Socioeconomic History Marital status: Spouse name: Not on file Number of children: Not on file Years of education: Not on file Highest education level: Not on file Occupational History Not on file Tobacco Use Smoking status: Former Current packs/day: 0.00 Average packs/day: 0.3 packs/day for 10.0 years (2.5 ttl pk-yrs) Types: Cigarettes Start date: 06/24/1967 Quit date: 06/24/1977 Years since quittin.0 Smokeless tobacco: Never Vaping Use Vaping status: Never Used Substance and Sexual Activity Alcohol use: Yes Alcohol/week: 1.0 standard drink of alcohol Types: 1 Standard drinks or equivalent per week Drug use: No Sexual activity: Not Currently Partners: Female Other Topics Concern Not on file Social History Narrative Not on file Social Determinants of Health Financial Resource Strain: Low Risk (02/03/2023) Overall Financial Resource Strain (CARDIA) Difficulty of Paying Living Expenses: Not hard at all Food Insecurity: No Food Insecurity (02/03/2023) Hunger Vital Sign Worried About Running Out of Food in the Last Year: Never true Ran Out of Food in the Last Year: Never true Transportation Needs: No Transportation Needs (02/03/2023) PRAPARE - Transportation Lack of Transportation (Medical): No Lack of Transportation (Non-Medical): No Physical Activity: Sufficiently Active (02/03/2023) Exercise Vital Sign Days of Exercise per Week: 4 days Minutes of Exercise per Session: 40 min Stress: No Stress Concern Present (02/03/2023) [employer] - Occupational Stress Questionnaire Feeling of Stress : Not at all Social Connections: Socially Integrated (02/03/2023) Social Connection and Isolation Panel [NHANES] Frequency of Communication with Friends and Family: More than three times a week Frequency of Social Gatherings with Friends and Family: Three times a week Attends [employer] Services: More than 4 times per year Active Member of Clubs or Organizations: Yes Attends Club or Organization Meetings: More than 4 times per year Marital Status: Intimate Partner Violence: Not At Risk (02/03/2023) Humiliation, Afraid, Rape, and Kick questionnaire Fear of Current or Ex-Partner: No Emotionally Abused: No Physically Abused: No Sexually Abused: No Housing Stability: Low Risk (02/03/2023) Housing Stability Vital Sign Unable to Pay for Housing in the Last Year: No Number of Places Lived in the Last Year: 1 Unstable Housing in the Last Year: No Family History: Family History Problem Relation Name Age of Onset Cancer Father [place] 77 Colon Medications Prior to Admission: No current facility-administered medications on file prior to encounter. Current Outpatient Medications on File Prior to Encounter Medication Sig Dispense Refill albuterol (Ventolin HFA) 108 (90 Base) MCG/ACT inhaler Inhale 2 puffs every 4 hours as needed for wheezing or shortness of breath. 8 g 0 aspirin 81 MG EC tablet Take 81 mg by mouth in the morning. benzonatate (Tessalon) 100 MG capsule Take 1 capsule (100 mg) by mouth 3 times daily as needed for cough. Do not crush or chew. 42 capsule 0 Calcium Carb-Cholecalciferol 500-5 MG-MCG tablet tablet Take 1 tablet by mouth daily. 90 tablet 3 carvedilol (Coreg) 3.125 MG tablet 1 po bid 180 tablet 3 cholecalciferol (Vitamin D-3) 125 MCG (5000 UT) capsule Take 5,000 Units by mouth in the morning. enzalutamide (Xtandi) 40 MG chemo capsule TAKE 4 CAPSULES BY MOUTH DAILY 120 capsule 3 ibuprofen 600 MG tablet Take 1 tablet by mouth 3 times daily as needed. lisinopril 10 MG tablet Take 1 tablet (10 mg) by mouth daily. 90 tablet 3 simvastatin (Zocor) 20 MG tablet TAKE 1 TABLET BY MOUTH EVERY DAY IN THE EVENING 90 tablet 3 Allergies: Allergies Allergen Reactions Seasonal Ic [Cholestatin] REVIEW OF SYSTEMS: Constitutional: Negative for fever, chills, positive for activity change and negative for unexpected weight change. HEENT: Negative for congestion, postnasal drip and sneezing. Eyes: Negative for itching and visual disturbance. Respiratory: Negative for apnea, cough, choking, chest tightness, shortness of breath, wheezing and stridor. Cardiovascular: Negative for chest pain. Gastrointestinal: Negative for nausea, vomiting, abdominal pain, diarrhea and blood in stool. Genitourinary: Negative for dysuria, frequency and flank pain. Musculoskeletal: Negative for myalgias and joint swelling. Skin: Positive for buttock wounds neurological: Negative for dizziness, tremors, seizures, syncope, facial asymmetry, speech difficulty, weakness, numbness and headaches. Hematological: Negative for adenopathy. Psychiatric/Behavioral: Negative for suicidal ideas, behavioral problems, self-injury and dysphoric mood. Vitals: BP (!) 145/71 (BP Location: Left arm, Patient Position: Sitting) Pulse 51 Temp 36.2 C (97.2 F) (Temporal) Resp 16 SpO2 98% BMI Classification: Pulse Ox: SpO2 Av % Min: 96 % Max: 98 % Supplemental O2: PHYSICAL EXAM: Physical Exam Constitutional: Appearance: He is ill-appearing. Cardiovascular: Rate and Rhythm: Normal rate and regular rhythm. Pulses: Normal pulses. Heart sounds: Normal heart sounds. Pulmonary: Effort: Pulmonary effort is normal. Breath sounds: Normal breath sounds. Abdominal: Palpations: Abdomen is soft. Musculoskeletal: General: Normal range of motion. Skin : Stage I pressure ulcer nonblanching erythema to the sacrum. 2 small approximately dime size open areas 1 on either buttock with no active drainage that appear consistent with stage II pressure ulcers. DATA: CBC: Recent Labs 06/20/24 1050 WBC 7.0 RBC 4.05* HGB 12.8* HCT 39.4* MCV 97.3 RDW 13.5 PLT 298 BMP: Recent Labs 06/20/24 1050 NA 138 K 4.2 CL 103 CO2 29 BUN 12 CREATININE 0.41* GLUCOSE 95 CALCIUM 8.3* ANIONGAP 6 LIVER PROFILE:No results for input(s): AST, ALT, BILITOT, ALKPHOS, PROT in the last 72 hours. No lab exists for component: LABALBU PT/INR: No results for input(s): PROTIME, INR in the last 72 hours. CARDIAC ENZYMES: Recent Labs 06/20/24 1050 TROPONINI <0.012 Procalcitonin: No results found for: PROCAL Urine Culture: No results found for this or any previous visit. COVID-19 PCR: No results for input(s): COVID19 in the last 72 hours. I reviewed: [x] laboratory results [x] radiographic results At the time of today's encounter. Pt was advised of the results. Assessment Discussed management with the ED provider and agree with hospitalization. Acute, acute on chronic, unstable/uncontrolled chronic problems/diagnoses: Stage I pressure ulcer of the sacrum with stage II pressure ulcer of the buttocks Antibiotic induced diarrhea Generalized weakness due to volume loss Inability to ambulate Stable chronic problems affecting care, new non-acute diagnoses: Past Medical History: Diagnosis Date 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, blood transfusions CAD (coronary artery disease) History of blood transfusion Hyperlipidemia Hypertension Prostate cancer (HCC) Plan As a result of the above findings & factors, the following mgmt was pursued: -Admit the patient to medical floor, IV hydration, PT and OT assessments and wound care, protein supplementation - am labs, replace lytes prn - PT/OT/CM/SW - delirium precautions: - DVT prophylaxis: Complexity: Risk: Advance Directive: No Order Anticipated Discharge - Date - - Location - - Pending the following - Total time spent (which include face to face and non face to face encounters) : 76 minutes. Toxic drug monitoring/narrow therapeutic index drug monitoring : # Drug name : # Route administered : # Method of monitoring : Extended Emergency Contact Information Primary Emergency Contact: ArabellaLori [address]: [address] [place] [address] Mobile Relation: Spouse Secondary Emergency Contact: ArabellaJessica Mobile Relation: Daughter [employer] Izabela London : 1940 Primary Care Physician: Jeramie Ching MD The patient and/or family/surrogate voluntarily agreed to participate in ACP services. Patient s cognitive capacity: Good Code Status: [_*] [FULL CODE - Continue all advanced life support: CPR,intubation,invasive procedures] [_] [DNR-CCA - DO NOT do CPR, intubation] [_] [DNR-GRIT REMOVAL OPERATOR - Comfort care only] [_] DNR form [was/was not] signed Summary of discussion: The patient health care POA/ surrogate is the following: [Condition that instigated the ACP on this DOS, relevant PMH, functional status, goals of care, and whom this was discussed with including names and relationship to the patient, and any relevant advance care documentation discussion] I answered all the patient/family questions that I could within the range and scope of the current medical situation. We discussed the medical conditions, risks, benefits, outcomes, and goals of care at this time for the patient's medical issues at hand in the face of the patient's chronic issues and current presentation. Total time spent: 17 minutes were spent discussing the patient's resuscitation status, advance care planning, and end of life care, with patient and/or family/surrogate. Maria Antonia Baker MD Division of Hospitalist Medicine [facility] 06-20-2024 History and physical note Attending History and Physical Admit Date: 06/20/2024 PCP: Jeramie Ching MD CHIEF COMPLAINT: My bottom is sore Reason for Admission: Pressure ulcers of the buttocks sacral areas, due to antibiotic induced diarrhea and generalized weakness History Obtained From: Patient ED physician and the at bedside HISTORY OF PRESENT ILLNESS: Izabela is a 84 y.o. male with past medical history of prostate cancer on active treatment and Burkitt's lymphoma, hypertension, hyperlipidemia, admitted via the emergency department after he has been having antibiotic induced diarrhea due to doxycycline causing bedsores with pain and generalized weakness and inability to ambulation. Patient was recently in the ER for bronchitis and was given doxycycline which caused diarrhea, after discontinuation and with Imodium use the diarrhea is settling in, patient feels too weak to be managed at home. at bedside, in the emergency department his blood pressure was 129/63, heart rate of 55 with a normal temperature and respirations of 16, O2 sats 96% on room air, labs were obtained CBC showed WBC 7, H&H 12.8/39.4, platelets 298, BUN/creatinine 12/0.41, sodium 138, potassium 4.2 alk phos troponin is negative Patient mainly admitted for hydration and PT and OT assessments with possible placement. Past Medical History: Past Medical History: Diagnosis Date Burkitt lymphoma (HCC) 2013 chemotherapy, blood transfusions CAD (coronary artery disease) History of blood transfusion Hyperlipidemia Hypertension Prostate cancer (HCC) Past Surgical History: Past Surgical History: Procedure Laterality Date BACK SURGERY 2014 BONE GRAFT 1989 broken foot- bone graft COLONOSCOPY CORONARY ANGIOPLASTY WITH STENT PLACEMENT 08/2012 EYE SURGERY Bilateral cataracts JOINT REPLACEMENT SKIN CANCER EXCISION left ear STENT CENTRAL VEIN AV GRAFT TONSILLECTOMY AND ADENOIDECTOMY (HISTORICAL) 1944 TOTAL KNEE ARTHROPLASTY Left 07/05/2019 Social History: Social History Socioeconomic History Marital status: Spouse name: Not on file Number of children: Not on file Years of education: Not on file Highest education level: Not on file Occupational History Not on file Tobacco Use Smoking status: Former Current packs/day: 0.00 Average packs/day: 0.3 packs/day for 10.0 years (2.5 ttl pk-yrs) Types: Cigarettes Start date: 06/24/1967 Quit date: 06/24/1977 Years since quittin.0 Smokeless tobacco: Never Vaping Use Vaping status: Never Used Substance and Sexual Activity Alcohol use: Yes Alcohol/week: 1.0 standard drink of alcohol Types: 1 Standard drinks or equivalent per week Drug use: No Sexual activity: Not Currently Partners: Female Other Topics Concern Not on file Social History Narrative Not on file Social Determinants of Health Financial Resource Strain: Low Risk (02/03/2023) Overall Financial Resource Strain (CARDIA) Difficulty of Paying Living Expenses: Not hard at all Food Insecurity: No Food Insecurity (02/03/2023) Hunger Vital Sign Worried About Running Out of Food in the Last Year: Never true Ran Out of Food in the Last Year: Never true Transportation Needs: No Transportation Needs (02/03/2023) PRAPARE - Transportation Lack of Transportation (Medical): No Lack of Transportation (Non-Medical): No Physical Activity: Sufficiently Active (02/03/2023) Exercise Vital Sign Days of Exercise per Week: 4 days Minutes of Exercise per Session: 40 min Stress: No Stress Concern Present (02/03/2023) [employer] - Occupational Stress Questionnaire Feeling of Stress : Not at all Social Connections: Socially Integrated (02/03/2023) Social Connection and Isolation Panel [NHANES] Frequency of Communication with Friends and Family: More than three times a week Frequency of Social Gatherings with Friends and Family: Three times a week Attends [employer] Services: More than 4 times per year Active Member of Clubs or Organizations: Yes Attends Club or Organization Meetings: More than 4 times per year Marital Status: Intimate Partner Violence: Not At Risk (02/03/2023) Humiliation, Afraid, Rape, and Kick questionnaire Fear of Current or Ex-Partner: No Emotionally Abused: No Physically Abused: No Sexually Abused: No Housing Stability: Low Risk (02/03/2023) Housing Stability Vital Sign Unable to Pay for Housing in the Last Year: No Number of Places Lived in the Last Year: 1 Unstable Housing in the Last Year: No Family History: Family History Problem Relation Name Age of Onset Cancer Father Pap[place] 77 Colon Medications Prior to Admission: No current facility-administered medications on file prior to encounter. Current Outpatient Medications on File Prior to Encounter Medication Sig Dispense Refill albuterol (Ventolin HFA) 108 (90 Base) MCG/ACT inhaler Inhale 2 puffs every 4 hours as needed for wheezing or shortness of breath. 8 g 0 aspirin 81 MG EC tablet Take 81 mg by mouth in the morning. benzonatate (Tessalon) 100 MG capsule Take 1 capsule (100 mg) by mouth 3 times daily as needed for cough. Do not crush or chew. 42 capsule 0 Calcium Carb-Cholecalciferol 500-5 MG-MCG tablet tablet Take 1 tablet by mouth daily. 90 tablet 3 carvedilol (Coreg) 3.125 MG tablet 1 po bid 180 tablet 3 cholecalciferol (Vitamin D-3) 125 MCG (5000 UT) capsule Take 5,000 Units by mouth in the morning. enzalutamide (Xtandi) 40 MG chemo capsule TAKE 4 CAPSULES BY MOUTH DAILY 120 capsule 3 ibuprofen 600 MG tablet Take 1 tablet by mouth 3 times daily as needed. lisinopril 10 MG tablet Take 1 tablet (10 mg) by mouth daily. 90 tablet 3 simvastatin (Zocor) 20 MG tablet TAKE 1 TABLET BY MOUTH EVERY DAY IN THE EVENING 90 tablet 3 Allergies: Allergies Allergen Reactions Seasonal Ic [Cholestatin] REVIEW OF SYSTEMS: Constitutional: Negative for fever, chills, positive for activity change and negative for unexpected weight change. HEENT: Negative for congestion, postnasal drip and sneezing. Eyes: Negative for itching and visual disturbance. Respiratory: Negative for apnea, cough, choking, chest tightness, shortness of breath, wheezing and stridor. Cardiovascular: Negative for chest pain. Gastrointestinal: Negative for nausea, vomiting, abdominal pain, diarrhea and blood in stool. Genitourinary: Negative for dysuria, frequency and flank pain. Musculoskeletal: Negative for myalgias and joint swelling. Skin: Positive for buttock wounds neurological: Negative for dizziness, tremors, seizures, syncope, facial asymmetry, speech difficulty, weakness, numbness and headaches. Hematological: Negative for adenopathy. Psychiatric/Behavioral: Negative for suicidal ideas, behavioral problems, self-injury and dysphoric mood. Vitals: BP (!) 145/71 (BP Location: Left arm, Patient Position: Sitting) Pulse 51 Temp 36.2 C (97.2 F) (Temporal) Resp 16 SpO2 98% BMI Classification: Pulse Ox: SpO2 Av % Min: 96 % Max: 98 % Supplemental O2: PHYSICAL EXAM: Physical Exam Constitutional: Appearance: He is ill-appearing. Cardiovascular: Rate and Rhythm: Normal rate and regular rhythm. Pulses: Normal pulses. Heart sounds: Normal heart sounds. Pulmonary: Effort: Pulmonary effort is normal. Breath sounds: Normal breath sounds. Abdominal: Palpations: Abdomen is soft. Musculoskeletal: General: Normal range of motion. Skin : Stage I pressure ulcer nonblanching erythema to the sacrum. 2 small approximately dime size open areas 1 on either buttock with no active drainage that appear consistent with stage II pressure ulcers. DATA: CBC: Recent Labs 06/20/24 1050 WBC 7.0 RBC 4.05* HGB 12.8* HCT 39.4* MCV 97.3 RDW 13.5 PLT 298 BMP: Recent Labs 06/20/24 1050 NA 138 K 4.2 CL 103 CO2 29 BUN 12 CREATININE 0.41* GLUCOSE 95 CALCIUM 8.3* ANIONGAP 6 LIVER PROFILE:No results for input(s): AST, ALT, BILITOT, ALKPHOS, PROT in the last 72 hours. No lab exists for component: LABALBU PT/INR: No results for input(s): PROTIME, INR in the last 72 hours. CARDIAC ENZYMES: Recent Labs 06/20/24 1050 TROPONINI <0.012 Procalcitonin: No results found for: PROCAL Urine Culture: No results found for this or any previous visit. COVID-19 PCR: No results for input(s): COVID19 in the last 72 hours. I reviewed: [x] laboratory results [x] radiographic results At the time of today's encounter. Pt was advised of the results. Assessment Discussed management with the ED provider and agree with hospitalization. Acute, acute on chronic, unstable/uncontrolled chronic problems/diagnoses: Stage I pressure ulcer of the sacrum with stage II pressure ulcer of the buttocks Antibiotic induced diarrhea Generalized weakness due to volume loss Inability to ambulate Stable chronic problems affecting care, new non-acute diagnoses: Past Medical History: Diagnosis Date 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, blood transfusions CAD (coronary artery disease) History of blood transfusion Hyperlipidemia Hypertension Prostate cancer (HCC) Plan As a result of the above findings & factors, the following mgmt was pursued: -Admit the patient to medical floor, IV hydration, PT and OT assessments and wound care, protein supplementation - am labs, replace lytes prn - PT/OT/CM/SW - delirium precautions: - DVT prophylaxis: Complexity: Risk: Advance Directive: No Order Anticipated Discharge - Date - - Location - - Pending the following - Total time spent (which include face to face and non face to face encounters) : 76 minutes. Toxic drug monitoring/narrow therapeutic index drug monitoring : # Drug name : # Route administered : # Method of monitoring : Extended Emergency Contact Information Primary Emergency Contact: ReyesmelinabrianLori Address: [address] [place] [address] Mobile Relation: Spouse Secondary Emergency Contact: ArabellaJessica Mobile Relation: Daughter [employer] Izabela London : 1940 Primary Care Physician: Jeramie Ching MD The patient and/or family/surrogate voluntarily agreed to participate in ACP services. Patient s cognitive capacity: Good Code Status: [_*] [FULL CODE - Continue all advanced life support: CPR,intubation,invasive procedures] [_] [DNR-CCA - DO NOT do CPR, intubation] [_] [DNR-GRIT REMOVAL OPERATOR - Comfort care only] [_] DNR form [was/was not] signed Summary of discussion: The patient health care POA/ surrogate is the following: [Condition that instigated the ACP on this DOS, relevant PMH, functional status, goals of care, and whom this was discussed with including names and relationship to the patient, and any relevant advance care documentation discussion] I answered all the patient/family questions that I could within the range and scope of the current medical situation. We discussed the medical conditions, risks, benefits, outcomes, and goals of care at this time for the patient's medical issues at hand in the face of the patient's chronic issues and current presentation. Total time spent: 17 minutes were spent discussing the patient's resuscitation status, advance care planning, and end of life care, with patient and/or family/surrogate. Maria Antonia Baker MD Division of Hospitalist Medicine [facility] documented in this encounter [facility] 06-20-2024 Emergency department Note Barrier cream applied to buttock/wounds. Pt tolerated well. Pt was turned on left side pillow propped under buttock. Wanda Becerril RN 06/20/24 1032 Wanda Becerril RN 06/20/24 1045 [facility] 06-20-2024 Physician Emergency department Note Images from the original note were not included. EMERGENCY DEPARTMENT ENCOUNTER Pt Name: Izabela London Birthdate 1940 Date of evaluation: 06/20/2024 ED Provider: Judy Casanova PA-C EDcare was supervised by Dr. Cantu who independently examined and evaluated the patient. Please see their attestation note for further details. CHIEF COMPLAINT Chief Complaint Patient presents with Wound Care Pt comes to the ED today due to having bed sores on his butt. Pt is alert and oriented states he mostly sits in the chair at home and does not shift his weight pt states he has 2 open wounds. Vitals taken in triage HISTORY OF PRESENT ILLNESS (Location/Symptom, Timing/Onset, Context/Setting, Quality, Duration, Modifying Factors, Severity) Note limiting factors. I wore appropriate PPE for the entirety of this encounter. HPI Izabela London is a 84 y.o. male with past medical history significant for prostate cancer with bone who presents to the emergency department with chief complaint of bedsores. Patient reports that a couple of weeks ago he was diagnosed with bronchitis and was started on doxycycline. The doxycycline gave him diarrhea. His diarrhea resolved after his took him off of the doxycycline and started giving him Imodium. He is now off of all of these medications and is feeling fine except for he has never gained his strength back after the bronchitis. He states that when he had rhonchi as he was struggling to breathe when he laid flat so he started sleeping in a chair. Now he is too weak to get up stairs and go to bed, so he sleeps in his chair, and he spends most of his day in his chair. He is not moving often, and he is began to develop sores on his buttocks. States that the sores began during the diarrhea when he had to sit in some of his waist for couple of hours because his could not hear him calling for help. Subsequently they have tried barrier creams, Neosporin, without relief. He presented today with concern for these wounds, but he is too weak to move, he states that he cannot transfer himself in bed or in the chair, and that is been ongoing problem since the bronchitis diagnosis. His bronchitis and diarrhea have fully resolved now, but he just never bounced back like he thought he would. Nursing Notes were reviewed. 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, blood transfusions CAD (coronary artery disease) History of blood transfusion Hyperlipidemia Hypertension Prostate cancer (HCC) SURGICAL HISTORY Past Surgical History: Procedure Laterality Date BACK SURGERY 2014 BONE GRAFT 1989 broken foot- bone graft COLONOSCOPY CORONARY ANGIOPLASTY WITH STENT PLACEMENT 08/2012 EYE SURGERY Bilateral cataracts JOINT REPLACEMENT SKIN CANCER EXCISION left ear STENT CENTRAL VEIN AV GRAFT TONSILLECTOMY AND ADENOIDECTOMY (HISTORICAL) 1944 TOTAL KNEE ARTHROPLASTY Left 07/05/2019 CURRENT MEDICATIONS Previous Medications ALBUTEROL (VENTOLIN HFA) 108 (90 BASE) MCG/ACT INHALER Inhale 2 puffs every 4 hours as needed for wheezing or shortness of breath. ASPIRIN 81 MG EC TABLET Take 81 mg by mouth in the morning. BENZONATATE (TESSALON) 100 MG CAPSULE Take 1 capsule (100 mg) by mouth 3 times daily as needed for cough. Do not crush or chew. CALCIUM CARB-CHOLECALCIFEROL 500-5 MG-MCG TABLET TABLET Take 1 tablet by mouth daily. CARVEDILOL (COREG) 3.125 MG TABLET 1 po bid CHOLECALCIFEROL (VITAMIN D-3) 125 MCG (5000 UT) CAPSULE Take 5,000 Units by mouth in the morning. ENZALUTAMIDE (XTANDI) 40 MG CHEMO CAPSULE TAKE 4 CAPSULES BY MOUTH DAILY IBUPROFEN 600 MG TABLET Take 1 tablet by mouth 3 times daily as needed. LISINOPRIL 10 MG TABLET Take 1 tablet (10 mg) by mouth daily. SIMVASTATIN (ZOCOR) 20 MG TABLET TAKE 1 TABLET BY MOUTH EVERY DAY IN THE EVENING ALLERGIES Seasonal ic [cholestatin] FAMILY HISTORY Family History Problem Relation Name Age of Onset Cancer Father Papa 77 Colon SOCIAL HISTORY Social History Socioeconomic History Marital status: Tobacco Use Smoking status: Former Current packs/day: 0.00 Average packs/day: 0.3 packs/day for 10.0 years (2.5 ttl pk-yrs) Types: Cigarettes Start date: 06/24/1967 Quit date: 06/24/1977 Years since quittin.0 Smokeless tobacco: Never Vaping Use Vaping status: Never Used Substance and Sexual Activity Alcohol use: Yes Alcohol/week: 1.0 standard drink of alcohol Types: 1 Standard drinks or equivalent per week Drug use: No Sexual activity: Not Currently Partners: Female Social Determinants of Health Financial Resource Strain: Low Risk (02/03/2023) Overall Financial Resource Strain (CARDIA) Difficulty of Paying Living Expenses: Not hard at all Food Insecurity: No Food Insecurity (02/03/2023) Hunger Vital Sign Worried About Running Out of Food in the Last Year: Never true Ran Out of Food in the Last Year: Never true Transportation Needs: No Transportation Needs (02/03/2023) PRAPARE - Transportation Lack of Transportation (Medical): No Lack of Transportation (Non-Medical): No Physical Activity: Sufficiently Active (02/03/2023) Exercise Vital Sign Days of Exercise per Week: 4 days Minutes of Exercise per Session: 40 min Stress: No Stress Concern Present (02/03/2023) [employer] - Occupational Stress Questionnaire Feeling of Stress : Not at all Social Connections: Socially Integrated (02/03/2023) Social Connection and Isolation Panel [NHANES] Frequency of Communication with Friends and Family: More than three times a week Frequency of Social Gatherings with Friends and Family: Three times a week Attends [employer] Services: More than 4 times per year Active Member of Clubs or Organizations: Yes Attends Club or Organization Meetings: More than 4 times per year Marital Status: Intimate Partner Violence: Not At Risk (02/03/2023) Humiliation, Afraid, Rape, and Kick questionnaire Fear of Current or Ex-Partner: No Emotionally Abused: No Physically Abused: No Sexually Abused: No Housing Stability: Low Risk (02/03/2023) Housing Stability Vital Sign Unable to Pay for Housing in the Last Year: No Number of Places Lived in the Last Year: 1 Unstable Housing in the Last Year: No SCREENINGS PHYSICAL EXAM ED Triage Vitals [06/20/24 0944] Temp Heart Rate Resp BP 36.2 C (97.2 F) 55 16 129/63 SpO2 Temp Source Heart Rate Source Patient Position 96 % Temporal Monitor -- BP Location FiO2 (%) -- -- Physical Exam Vitals and nursing note reviewed. Constitutional: General: He is not in acute distress. Appearance: He is well-developed. He is not ill-appearing, toxic-appearing or diaphoretic. HENT: Head: Normocephalic and atraumatic. Eyes: Conjunctiva/sclera: Conjunctivae normal. Cardiovascular: Rate and Rhythm: Normal rate and regular rhythm. Pulmonary: Effort: Pulmonary effort is normal. No respiratory distress. Breath sounds: Normal breath sounds. No wheezing or rales. Abdominal: Palpations: Abdomen is soft. Tenderness: There is no abdominal tenderness. There is no right CVA tenderness, left CVA tenderness or guarding. Musculoskeletal: General: No swelling. Cervical back: Neck supple. Skin: General: Skin is warm and dry. Capillary Refill: Capillary refill takes less than 2 seconds. Coloration: Skin is pale. Comments: Stage I pressure ulcer nonblanching erythema to the sacrum. 2 small approximately dime size open areas 1 on either buttock with no active drainage that appear consistent with stage II pressure ulcers. Neurological: Mental Status: He is alert. Psychiatric: Mood and Affect: Mood normal. DIAGNOSTIC RESULTS RADIOLOGY (Per Emergency Physician): Interpretation per the Radiologist below, if available at the time of this note: No orders to display LABS: Labs Reviewed - No data to display All other labs were within normal range or not returned as of this dictation. EMERGENCY DEPARTMENT COURSE and DIFFERENTIAL DIAGNOSIS/MDM: Vitals: Vitals: 06/20/24 0944 BP: 129/63 Pulse: 55 Resp: 16 Temp: 36.2 C (97.2 F) TempSrc: Temporal SpO2: 96% The patient presented with a chief complaint of generalized weakness, functional decline, pressure ulcers. The differential diagnosis associated with this patient's presentation includes generalized weakness, functional decline, pressure ulcers. Considered dehydration, electrolyte abnormality, ACS, but these are considered less likely. Patient has been feeling generally weak since his episode of bronchitis and never bounced back. He has no focal findings on examination, and I suspect general failure to thrive over acute pathology at this time. Patient is alert, oriented, pleasant and interactive, in no apparent distress. Answers all questions appropriately. Vital signs are stable. Our workup consisted of ordering/reviewing CBC, BMP, troponin, EKG, chest x-ray. EKG nonischemic, troponin within defined in this. Laboratory evaluation is essentially benign with mild decrease in hemoglobin hematocrit at 12.8, and 39.4 respectively. BMP benign without evidence of acute kidney injury or major electrolyte abnormality. Chest x-ray shows some linear atelectasis, which may be consistent with his report of minimal activity and almost constant utilization of his recliner chair. Had shared decision-making conversation with the patient and his family during which we discussed goals of care. He feels he has been weak since his acute illness a couple of weeks ago, this is led to decreased mobility, difficulty with ADLs, and development of bedsores because he cannot get up and walk or transfer himself in bed. He has family members around that may be able to help him, and he and his are working on getting a new lift bed and some additional mobility aids at home, but have not been able to arrange these yet. Ultimately patient and family decided that they would be most comfortable with staying for PT OT evaluation and rehab versus long-term care placement. Patient will be admitted for PT OT evaluation and facility placement. I discussed this patient and their evaluation with my attending Dr. Cantu, who independently evaluated the patient, and they are in agreement with the above treatment plan and disposition. Diagnoses as of 06/21/24 1144 Failure to thrive in adult ED Medications managed: Medications - No data to display PROCEDURES: Unless otherwise noted below, none Procedures FINAL IMPRESSION No diagnosis found. DISPOSITION PATIENT REFERRED TO: No follow-up provider specified. DISCHARGE MEDICATIONS: New Prescriptions No medications on file (Comment: Please note this report has been produced using speech recognition software and may contain errors related to that system including errors in grammar, punctuation, and spelling, as well as words and phrases that may be inappropriate. If there are any questions or concerns please feel free to contact the dictating provider for clarification.) Judy Casanova PA-C (electronically signed) Emergency Medicine Provider Judy Casanova PA-C 06/21/24 1148 [facility] 06-06-2024 History of Present illness Narrative Pt arrives today from [facility] for q12w Zometa + Zoladex. States he had to cancel his apt last week because he had bronchitis. Still has some lingering congestion and diarrhea due to having had Doxycycline. Otherwise he reports continued fatigue and weakness. Swelling and neuropathy in legs/feet is unchanged. Denies any jaw pain or recent dental issues. POC reviewed. PIV placed to RAC per pt request. No labs ordered today. CMP completed 05/18 and OK to use per Dr Urias. 1413 Zoladex given in R abdomen and tolerated well. Zometa infusion completed. PIV removed and gauze/coban placed to site. Next apt scheduled for August. Copy of calendar given to pt's . Discharged via WC in no acute distress. documented in this encounter [facility] 06-06-2024 History of Present illness Narrative Patient ID: Izabela London is a 84 y.o. male. HPI Tolerating Xtandi well. No hot flashes, seizures or back pain. Recovering from upper respiratory tract infection. he has the following oncology history 1. 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 2. S/p REPOCH chemotherapy with IT methotrexate. IT MTX started with cycle 3 and was given on day [address]. [address] scan post treatment and BMBx showed no evidence of disease hence CR. 4. Metastatic prostate cancer diagnosed Oct 2019. Metastatic sites involve bone. Under the care of Dr. Sarmiento and was getting GnRH agonist. Initially he got Lupron and then was started on Zoladex. 5. Due to rising PSA in spite of low testosterone, started on Xtandi 160 mg p.o. daily March 2021. Review of Systems - Oncology No nausea, vomiting, diarrhea, fever, night sweats, chills, cough, shortness of breath, chest pain BSA: 2.14 meters squared BP 136/68 Pulse 65 Temp 36.2 C (97.2 F) (Temporal) Ht 1.803 m (5' 10.98) Wt 91.6 kg (202 lb) SpO2 100% BMI 28.19 kg/m Physical Exam No lymphadenopathy or hepatosplenomegaly. No lower extremity edema. Lab Results Component Value Date WBC 8.0 05/18/2024 HGB 14.6 05/18/2024 HCT 44.4 05/18/2024 MCV 99.1 05/18/2024 PLT 247 05/18/2024 Lab Results Component Value Date GLUCOSE 80 05/18/2024 CALCIUM 9.3 05/18/2024 NA 137 06/14/2023 K 4.6 06/14/2023 CO2 28 05/18/2024 CL 100 06/14/2023 BUN 15 05/18/2024 CREATININE 0.45 (L) 05/18/2024 PSA 05/18/24: 1.16 Assessment/Plan he appears to be in complete remission from Burkitt's Lymphoma standpoint. 2. Rising PSA in the setting of GnRH agonist in spite of castrate levels of testosterone. Last PSA stable from 05/17 is stable Continue Zoladex 10.8mg depot every 12 weeks Continue Xtandi 160 mg p.o. daily. Discussed some of the side effects that include hot flashes, back pain, very low risk of seizures among others. We will touch base after bone scan and proceed accordingly. Median duration of response with xtandi is 15 months check CBC, CMP and PSA prior to next visit which is in 3 month. Continue Zometa every 12 weeks. I did discuss risk of osteonecrosis of the jaw which is 1 to 2% in patients receiving Zometa 3. I have counseled him on diet and exercise. Patient verbalizes understanding and agrees with the plan. There are no diagnoses linked to this encounter. Plan as of 06/06/24 documented in this encounter [facility] 05-31-2024 History of Present illness Narrative Images from the original note were not included. . [facility] [address] [facility] [address] Dept: [phone] Dept Visit type: Established Reason for Visit: Nasal Congestion (Symptoms started on Wednesday, he states he has nasal congestion, diarrhea, upset stomach. ) and Fall (Spouse had to call 911 due to patient falling this morning, declines hitting his head ) Assessment and Plan 1. Bronchitis - benzonatate (Tessalon) 100 MG capsule; Take 1 capsule (100 mg) by mouth 3 times daily as needed for cough. Do not crush or chew., Starting Wed05/31/2024, Until Wed06/30/2024 at 2359, Normal - doxycycline (Vibra-Tabs) 100 MG tablet; Take 1 tablet (100 mg) by mouth 2 times daily for 10 days. Take with a full glass of water and do not lie down for at least 30 minutes after., Starting Wed05/31/2024, Until 06/10/2024, Normal - albuterol (Ventolin HFA) 108 (90 Base) MCG/ACT inhaler; Inhale 2 puffs every 4 hours as needed for wheezing or shortness of breath., Starting Wed05/31/2024, Until Giovanna 05/31/2025 at 2359, Normal 2. Fever, unspecified fever cause - POCT Influenza A/B Flu test in office today was negative In regard to upper respiratory symptoms, likely bronchitis. Will provide patient with doxycycline as this has worked well for him in the past and Tessalon Perles to assist with cough. Due to some mild shortness of breath will provide patient with albuterol inhaler as needed. Discussed with patient when to return to office, verbalized understanding. Follow up if symptoms worsen or fail to improve. Subjective HPI This is a very pleasant 84-year-old gentleman with a past medical history of CAD, neuropathy, hypertension, prostate cancer who presents the office today for upper respiratory symptoms. Patient did experience a fall at home today prior to office visit. Patient states he fell on buttocks, did not hit head. Patient did have to call 911 to assist from a sitting to standing position as was unable to help him stand back up. Patient denies need for emergency room. Patient notes that upper respiratory symptoms started on Wednesday with cough, congestion and have progressively worsened. Patient is now experiencing a productive cough (yellow in color), fever on Wednesday with 100.1 that has since resolved, fatigue, and diarrhea that started last night. Patient admits to sick contacts. Patient did have a visit from family from [place] who were ill with an upper respiratory illness. COVID test at home was negative. Review of Systems Allergies Allergen Reactions Seasonal Ic [Cholestatin] Outpatient Medications Prior to Visit Medication Sig Dispense Refill aspirin 81 MG EC tablet Take 81 mg by mouth in the morning. Calcium Carb-Cholecalciferol 500-5 MG-MCG tablet tablet Take 1 tablet by mouth daily. 90 tablet 3 carvedilol (Coreg) 3.125 MG tablet 1 po bid 180 tablet 3 cholecalciferol (Vitamin D-3) 125 MCG (5000 UT) capsule Take 5,000 Units by mouth in the morning. enzalutamide (Xtandi) 40 MG chemo capsule TAKE 4 CAPSULES BY MOUTH DAILY 120 capsule 3 ibuprofen 600 MG tablet Take 1 tablet by mouth 3 times daily as needed. lisinopril 10 MG tablet Take 1 tablet (10 mg) by mouth daily. 90 tablet 3 simvastatin (Zocor) 20 MG tablet TAKE 1 TABLET BY MOUTH EVERY DAY IN THE EVENING 90 tablet 3 tamsulosin (Flomax) 0.4 MG 24 hr capsule Take 1 capsule (0.4 mg) by mouth in the morning and 1 capsule (0.4 mg) in the evening. 180 capsule 3 No facility-administered medications prior to visit. Past Medical History: Diagnosis Date 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, blood transfusions CAD (coronary artery disease) History of blood transfusion Hyperlipidemia Hypertension Prostate cancer (HCC) Social History Tobacco Use Smoking status: Former Current packs/day: 0.00 Average packs/day: 0.3 packs/day for 10.0 years (2.5 ttl pk-yrs) Types: Cigarettes Start date: 06/24/1967 Quit date: 06/24/1977 Years since quittin.9 Smokeless tobacco: Never Substance Use Topics Alcohol use: Yes Alcohol/week: 1.0 standard drink of alcohol Types: 1 Standard drinks or equivalent per week Past Surgical History: Procedure Laterality Date BACK SURGERY 2015 BONE GRAFT 1989 broken foot- bone graft COLONOSCOPY CORONARY ANGIOPLASTY WITH STENT PLACEMENT 08/2012 EYE SURGERY Bilateral cataracts JOINT REPLACEMENT SKIN CANCER EXCISION left ear STENT CENTRAL VEIN AV GRAFT TONSILLECTOMY AND ADENOIDECTOMY (HISTORICAL) 1944 TOTAL KNEE ARTHROPLASTY Left 07/05/2019 Family History Problem Relation Name Age of Onset Cancer Father Papa 77 Colon Objective BP 94/57 Pulse 72 Ht 5' 11 (1.803 m) SpO2 90% BMI 28.28 kg/m Physical Exam Vitals reviewed. Constitutional: General: He is not in acute distress. Appearance: Normal appearance. He is not toxic-appearing. HENT: Head: Normocephalic and atraumatic. Right Ear: Tympanic membrane normal. Left Ear: Tympanic membrane normal. Nose: Congestion and rhinorrhea present. Cardiovascular: Rate and Rhythm: Normal rate and regular rhythm. Pulses: Normal pulses. Heart sounds: Normal heart sounds. No murmur heard. Pulmonary: Breath sounds: No wheezing. Abdominal: General: Abdomen is flat. Palpations: Abdomen is soft. Skin: General: Skin is warm and dry. Neurological: Mental Status: He is alert and oriented to person, place, and time. Psychiatric: Mood and Affect: Mood normal. Behavior: Behavior normal. Data Reviewed and Summarized Labs: Imaging/Testing: CHERYL Wright CNP documented in this encounter [facility] 05-31-2024 Telephone encounter Note S: Patient spoke with [facility] nurse regarding Stomach pain, congestion and diarrhea B: Onset of symptoms/concern 06/05/24 A: Pt endorses constant abdominal pain from umbilicus to lower sternum 04/03. Used Rubtussing, Ibuprofen without any relief. Chest congestion, yellow productive, difficulty laying flat due to difficulty breathing, Pt endorses has three episodes of diarrhea this morning, no noted blood. No change with abdominal pain after diarrheal episode. Denies - shortness of breath, fever, No COVID exposure, No recent vaccines. Tested for COVID on Wednesday and was negative., urinary difficulty, R: POD schedule 05/31/24 at [facility] with [facility] [facility]. Pt advised of date, time, provider and address to appointment. Home care advise given for abdominal pain. Patient understands care advice. No further needs at this time. Patient instructed to call back with new or worsening symptoms. Reason for Disposition [1] MILD-MODERATE pain AND [2] constant AND [3] present > 2 hours Protocols used: Abdominal Pain - [id number] [facility] 05-31-2024 Miscellaneous Notes S: Patient spoke with [facility] nurse regarding Stomach pain, congestion and diarrhea B: Onset of symptoms/concern 06/05/24 A: Pt endorses constant abdominal pain from umbilicus to lower sternum 04/03. Used Rubtussing, Ibuprofen without any relief. Chest congestion, yellow productive, difficulty laying flat due to difficulty breathing, Pt endorses has three episodes of diarrhea this morning, no noted blood. No change with abdominal pain after diarrheal episode. Denies - shortness of breath, fever, No COVID exposure, No recent vaccines. Tested for COVID on Wednesday and was negative., urinary difficulty, R: POD schedule 05/31/24 at [facility] with [employer] [facility]. Pt advised of date, time, provider and address to appointment. Home care advise given for abdominal pain. Patient understands care advice. No further needs at this time. Patient instructed to call back with new or worsening symptoms. Reason for Disposition [1] MILD-MODERATE pain AND [2] constant AND [3] present > 2 hours Protocols used: Abdominal Pain - [id number] documented in this encounter [facility] 05-03-2024 Telephone encounter Note Medication name: Calcium Carb-Cholecalciferol (Oyster Shell Calcium/D3) 500-5 MG-MCG tablet Medication dosage: Monthly quantity needed: 30 How many day supply requestin days Medication route: oral (PO) Medication administration time(s): daily If taking medication PRN, reason for taking medication: N/A If this is a controlled substance do you receive this or any other controlled medication from any other doctor or facility: No Ordering provider: Date of last office visit: 02/07/2024 Date of next office visit: 02/12/2025 Date of last refill: (see medication tab): 09/24/2022 Updated/Validated preferred pharmacy: Yes [facility]/pharmacy #[id number] [place] [address] Patient instructed to contact the pharmacy prior to picking up the medication: No [facility] 05-03-2024 Miscellaneous Notes Medication name: Calcium Carb-Cholecalciferol (Oyster Shell Calcium/D3) 500-5 MG-MCG tablet Medication dosage: Monthly quantity needed: 30 How many day supply requestin days Medication route: oral (PO) Medication administration time(s): daily If taking medication PRN, reason for taking medication: N/A If this is a controlled substance do you receive this or any other controlled medication from any other doctor or facility: No Ordering provider: Date of last office visit: 02/07/2024 Date of next office visit: 02/12/2025 Date of last refill: (see medication tab): 09/24/2022 Updated/Validated preferred pharmacy: Yes [facility]/pharmacy #[id number] Patient instructed to contact the pharmacy prior to picking up the medication: No documented in this encounter [facility] 03-07-2024 History of Present illness Narrative 1043 Patient arrived via walker for Zometa and Zoladex. IV started with ease. Labs drawn last week. See assessment. Patient denies recent dental procedures. He is aware of dental precautions. Patient tolerated well. He prefers ice pack to abdomen prior to zoladex. Zoladex given to LLQ. Patient discharged to home in [place]. Calendar updated. documented in this encounter [facility] 03-07-2024 History of Present illness Narrative Patient ID: Izabela London is a 84 y.o. male. HPI Tolerating Xtandi well. No hot flashes, seizures or back pain. he has the following oncology history 1. 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 2. S/p REPOCH chemotherapy with IT methotrexate. IT MTX started with cycle 3 and was given on day [address] scan post treatment and BMBx showed no evidence of disease hence CR. 4. Metastatic prostate cancer diagnosed Oct 2019. Metastatic sites involve bone. Under the care of Dr. Sarmiento and was getting GnRH agonist. Initially he got Lupron and then was started on Zoladex. 5. Due to rising PSA in spite of low testosterone, started on Xtandi 160 mg p.o. daily March 2021. Review of Systems - Oncology No nausea, vomiting, diarrhea, fever, night sweats, chills, cough, shortness of breath, chest pain BSA: 2.15 meters squared BP (!) 158/80 Pulse 84 Temp 36.2 C (97.2 F) (Temporal) Ht 1.803 m (5' 11) Wt 92 kg (202 lb 12.8 oz) SpO2 95% BMI 28.28 kg/m Physical Exam No lymphadenopathy or hepatosplenomegaly. No lower extremity edema. Lab Results Component Value Date WBC 5.5 02/28/2024 HGB 14.9 02/28/2024 HCT 43.9 02/28/2024 MCV 95.0 02/28/2024 PLT 250 02/28/2024 Lab Results Component Value Date GLUCOSE 107 (H) 02/28/2024 CALCIUM 9.1 02/28/2024 NA 137 06/14/2023 K 4.6 06/14/2023 CO2 28 02/28/2024 CL 100 06/14/2023 BUN 13 02/28/2024 CREATININE 0.51 (L) 02/28/2024 PSA Total (Screening) Order: [id number] Status: Final result Visible to patient: Yes (seen) Next appt: Today at 11:00 AM in Infusion Therapy (CHAIR 19) 0 Result Notes Component Ref Range & Units 8 d ago 3 mo ago 6 mo ago PSA, TOTAL < OR = 4.00 ng/mL 1.02 0.65 CM 0.47 CM Comment: The total PSA value from this assay system is standardized against the WHO standard. The test result will be approximately 20% lower when compared to the equimolar-standardized total PSA (Shirin Rhinelander). Comparison of serial PSA results should be interpreted with this fact in mind. This test was performed using the Siemens chemiluminescent method. Values obtained from different assay methods cannot be used interchangeably. PSA levels, regardless of value, should not be interpreted as absolute evidence of the presence or absence of disease. [facility] Assessment/Plan he appears to be in complete remission from Burkitt's Lymphoma standpoint. 2. Rising PSA in the setting of GnRH agonist in spite of castrate levels of testosterone. Last PSA stable from 11/30/23 is stable Continue Zoladex 10.8mg depot every 12 weeks Continue Xtandi 160 mg p.o. daily. Discussed some of the side effects that include hot flashes, back pain, very low risk of seizures among others. We will touch base after bone scan and proceed accordingly. Median duration of response with xtandi is 15 months check CBC, CMP and PSA prior to next visit which is in 3 month. Continue Zometa every 12 weeks. I did discuss risk of osteonecrosis of the jaw which is 1 to 2% in patients receiving Zometa 3. I have counseled him on diet and exercise. Patient verbalizes understanding and agrees with the plan. There are no diagnoses linked to this encounter. Plan as of 03/07/24 documented in this encounter [facility] 02-07-2024 History of Present illness Narrative Images from the original note were not included. [facility] [address] [place] [address] [place] [id number] Dept: [phone] Dept Chief Complaint: Izabela London is an 84 y.o. male here for an annual wellness visit. Hx chronic low back pain and DJD knees, gait disordered, no new sx, completed physical therapy in August, does home exercises most days. Uses rollator as has difficulty rising from a chair. Hx metastatic prostate CA, continues enzalutamide, followed by hematology, has appointment next month. Assessment/Plan : Problem List Items Addressed This Visit Nervous Weakness of both lower extremities Circulatory 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 Essential hypertension Genitourinary Prostate cancer (HCC) Other Gait disorder Pure hypercholesterolemia Relevant Orders Lipid panel Other Visit Diagnoses Routine general medical examination at health care facility - Primary Continue Rollator use. Labs fasting in February prior to hematology visit. Annual exam after one year JERAMIE CHING MD I have reviewed and reconciled the medication list with the patient today. Current Outpatient Medications Medication Sig Dispense Refill aspirin 81 MG EC tablet Take 81 mg by mouth in the morning. Calcium Carb-Cholecalciferol (Oyster Shell Calcium/D3) 500-5 MG-MCG tablet Take 1 tablet by mouth daily. 100 tablet 3 carvedilol (Coreg) 3.125 MG tablet 1 po bid 180 tablet 3 cholecalciferol (Vitamin D-3) 125 MCG (5000 UT) capsule Take 5,000 Units by mouth in the morning. enzalutamide (Xtandi) 40 MG chemo capsule TAKE 4 CAPSULES BY MOUTH DAILY 120 capsule 3 ibuprofen 600 MG tablet Take 1 tablet by mouth 3 times daily as needed. lisinopril 10 MG tablet Take 1 tablet (10 mg) by mouth daily. 90 tablet 3 simvastatin (Zocor) 20 MG tablet TAKE 1 TABLET BY MOUTH EVERY DAY IN THE EVENING 90 tablet 3 tamsulosin (Flomax) 0.4 MG 24 hr capsule Take 1 capsule (0.4 mg) by mouth in the morning and 1 capsule (0.4 mg) in the evening. 180 capsule 3 No current facility-administered medications for this visit. Also reviewed during this visit: The following health maintenance schedule was reviewed with the patient and provided in printed form in the after visit summary: Health Maintenance Topic Date Due RSV Immunization aged 60 or older (1 - 1-dose 60+ series) Never done Medicare Advantage Annual Wellness Visit 10/25/2023 Depression Screening 02/04/2024 DTaP/Tdap/Td Vaccines (3 - Td or Tdap) 04/01/2027 Lipid Panel 02/04/2028 Influenza Vaccine Completed Pneumococcal Vaccine: 65+ Years Completed Zoster Vaccines Completed COVID-19 Vaccine Completed RSV Immunization under 20 Months Aged Out HIB Vaccines Aged Out Hepatitis B Vaccines Aged Out IPV Vaccines Aged Out Hepatitis A Vaccines Aged Out Meningococcal Vaccine Aged Out Rotavirus Vaccines Aged Out HPV Vaccines Aged Out List of current healthcare providers: Patient Care Team: Jeramie Ching MD as PCP - General Kristen Urias MD as Consulting Physician (Oncology) Lukas Chavez MD as Consulting Physician (Hematology and Oncology) No orders of the defined types were placed in this encounter. Review of Systems Physical Exam Vitals and nursing note reviewed. Constitutional: General: He is not in acute distress. Appearance: Normal appearance. He is normal weight. He is not ill-appearing, toxic-appearing or diaphoretic. Comments: Seated on raised rollator HENT: Head: Normocephalic and atraumatic. Neck: Vascular: No carotid bruit. Cardiovascular: Rate and Rhythm: Normal rate and regular rhythm. Heart sounds: Normal heart sounds. No murmur heard. Pulmonary: Effort: Pulmonary effort is normal. Breath sounds: Normal breath sounds. No wheezing, rhonchi or rales. Skin: General: Skin is warm and dry. Coloration: Skin is not pale. Neurological: Mental Status: He is alert. Psychiatric: Mood and Affect: Mood normal. Behavior: Behavior normal. Thought Content: Thought content normal. Judgment: Judgment normal. Objective : BP 112/64 (BP Location: Right arm) Pulse 69 Temp 36.2 C (97.2 F) Ht 5' 11 (1.803 m) Wt 205 lb (93 kg) SpO2 97% BMI 28.59 kg/m Vision Screening Right eye Left eye Both eyes Without correction With correction 20/40 20/40 20/30 Subjective : Health Risk Assessment: General: General In general, how would you say your health is?: Good In the past 7 days, have you experienced any of the following: New or Increased Pain, New or Increased Fatigue, Loneliness, Social Isolation, Stress or Anger?: No Do you get the social and emotional suppport you need?: Yes Health Habits/Nutrition: Health Habits / Nutrition On average, how many days per week do you engage in moderate to strenous exercise (like a brisk walk)?: 4 days On average, how man minutes do you engage in exercise at this level?: 40 min Have you lost any weight without trying in the past 3 months? : No Have you seen the dentist within the past year?: Yes Hearing/ Vision: Hearing / Vision Do you or your family notice any trouble with your hearing that hasn't been managed with hearing aids?: No Do you have difficulty driving, watching TV, or doing any of your daily activities because of your eyesight?: No Have you had an eye exam within the past year?: (!) No Vision Screening Right eye Left eye Both eyes Without correction With correction 20/40 20/40 20/30 Interventions: Vision concerns: Patient encouraged to make appointment with his / her museum informatics specialist- followed by Dr. Pardo in [place], patient will call and schedule, no sx. Safety: Safety Do you have a working smoke detector?: Yes Do you have any tripping hazards - loose or unsecured carpets or rugs?: No Do you have any tripping hazards - clutter in doorways, halls, or stairs?: No Do you have either shower bars, grab bars, non-slip mats or non-slip surfaces in your shower or bathtub? : Yes Do all your stairways have a railing or banister? : Yes Do you fasten your seatbelt when you are in a car?: Yes ADL: ADL In the past 7 days, did you need help from others to perform any of the following everyday activities: Eating, dressing, grooming,bathing, toileting, or walking / balance? : No In the past 7 days, did you need help from others to take care of any of the following: laundry, housekeeping, banking / finances,shopping, telephone use, food preparation, transportation, or taking medications? : No Living Will: Living Will Do you have a living will?: Yes Cognitive: Cognitive Screening: Mini-Cog Clock Drawing Test (CDT): 2 Words Recalled: 3 Total Score: 5 Total Score Interpretation: Normal Mini-Cog Fall Risk: Fall Risk One or more falls in the last year:: No Advised to use a cane or walker to get around safely:: No Feels unsteady when walking:: No Steadies self on furniture while walking at home:: No Worried about falling:: No Depression Screening: Over the past 2 weeks, how often have you been bothered by any of the following problems? Little interest or pleasure in doing things: Not at all Feeling down, depressed, or hopeless: Not at all Patient Health Questionnaire-2 Score: 0 Interventions: Tobacco Use: Social History Tobacco Use Smoking Status Former Packs/day: 0.25 Years: 10.00 Additional pack years: 0.00 Total pack years: 2.50 Types: Cigarettes Quit date: 06/24/1977 Years since quittin.6 Smokeless Tobacco Never Alcohol Use: Audit Alcohol Screening Q1: How often do you have a drink containing alcohol?: Monthly or less Q2: How many drinks containing alcohol do you have on a typical day when you are drinking?: 1 or 2 Q3: How often do you have six or more drinks on one occasion?: Never Audit-C Score: 1 Skip to questions 9-10?: 1 documented in this encounter [facility] 02-07-2024 Instructions Bonnie Ceron MA - 02/07/2024 10:00 AM EDT Continue Rollator use. Labs fasting in February prior to hematology visit. Annual exam after one year Personalized Preventative Plan for Izabela London - 02/07/2024 Medicare offers a range of preventative health benefits. Some of the tests and screenings are paid in full while others may be subject to a deductible, co-insurance, and / or copay. Some of these benefits include a comprehensive review of your medical history including lifestyle, illnesses that may run in your family, and various assessments and screenings as appropriate. After reviewing your medical record and screening and assessments performed today, your provider may have ordered immunizations, labs, imaging, and / or referrals for you. A list of these orders (if applicable) as well as your Preventative Care list are included within your After Visit Summary for your review. Other Preventative Recommendations: A preventive eye exam by an museum informatics specialist is recommended every 1-2 years to screen for glaucoma, cataracts, macular degeneration, and other eye disorders. A preventive dental visit is recommended every 6 months. Try to get at least 150 minutes of exercise per week or 10,000 steps per day on a pedometer. You need 1200-1500mg of calcium and [id number] international units of vitamin D per day. It is possible to meet your calcium requirement with diet alone, but a vitamin D supplement is usually necessary to meet this goal. When exposed to the sun, use a sunscreen that protects against both UVA and UVB radiation with an SPF of 30 or greater. Reapply every 2-3 hours or after sweating, drying off with a towel, or swimming. Always wear a seat belt when traveling in a car. Always wear a helmet when riding a bicycle or a motorcycle documented in this encounter [facility] 2024 Telephone encounter Note Name of caller: Izabela Contact phone number: [phone] Relationship to Patient: Self Provider: Practice: Oncology Chief Complaint/Reason for Call: Pt is returning missed call not sure what was needed but pt is needing a refill for enzalutamide (Xtandi) 40 MG chemo capsule 4 tablets a day please advise Best time of day caller can be reached: any Patient advised that office/PCP has 24-48 business hours to return their call: no [facility] 2024 Miscellaneous Notes Name of caller: Izabela Contact phone number: [phone] Relationship to Patient: Self Provider: Practice: Oncology Chief Complaint/Reason for Call: Pt is returning missed call not sure what was needed but pt is needing a refill for enzalutamide (Xtandi) 40 MG chemo capsule 4 tablets a day please advise Best time of day caller can be reached: any Patient advised that office/PCP has 24-48 business hours to return their call: no documented in this encounter [facility] 12-22-2023 History of Present illness Narrative Subjective Patient ID: Izabela London is a 83 y.o. male who presents for URI (Started 2 1/2 weeks ago - test for covid and it was negative /Taking mucinex /Chest congestion, cannot lay flat or it rattles /Diarrhea for 4 days - went away with immodium /Had chemo last week/). HPI URI sx 10 days, initial diarrhea has resolved, tolerating po fluids, no fever or chills. Daughter had similar illness, resolved quickly. Patient is receiving enzalutamide from oncology for metastatic prostate cancer. Difficulty with sleep secondary to cough. No dyspnea, no chest pain. Neuropathy now to just below knees, walks with walker. Review of Systems Respiratory: Positive for cough. Negative for shortness of breath and wheezing. Cardiovascular: Negative for chest pain and palpitations. Gastrointestinal: Negative for diarrhea. All other systems reviewed and are negative. Objective Physical Exam Vitals and nursing note reviewed. Constitutional: General: He is not in acute distress. Appearance: Normal appearance. He is normal weight. He is not ill-appearing, toxic-appearing or diaphoretic. Cardiovascular: Rate and Rhythm: Normal rate and regular rhythm. Heart sounds: Normal heart sounds. No murmur heard. Pulmonary: Effort: Pulmonary effort is normal. Breath sounds: No stridor. Rhonchi present. No wheezing or rales. Skin: General: Skin is warm and dry. Coloration: Skin is not pale. Neurological: Mental Status: He is alert. Psychiatric: Mood and Affect: Mood normal. Behavior: Behavior normal. Thought Content: Thought content normal. Judgment: Judgment normal. Pulse ox 98% noted. 12/07/23 Hematology note reviewed Assessment/Plan Diagnoses and all orders for this visit: Acute bacterial bronchitis - doxycycline (Monodox) 100 MG capsule; Take 1 capsule (100 mg) by mouth 2 times daily for 10 days. Take with at least 8 ounces (large glass) of water, do not lie down for 30 minutes after - benzonatate (Tessalon) 200 MG capsule; Take 1 capsule (200 mg) by mouth 3 times daily as needed for cough. Do not crush or chew. Drug-induced polyneuropathy (HCC) Stable, no new sx. 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 Malignant neoplasm metastatic to bone (HCC) Controlled with current medication Plenty of fluids Continue mucinex dm twice daily. Call if new, persistent or worsening symptoms. JERAMIE CHING MD documented in this encounter [facility] 12-22-2023 Instructions Bonnie Ceron MA - 12/22/2023 9:00 AM EST Plenty of fluids Continue mucinex dm twice daily. Call if new, persistent or worsening symptoms. JERAMIE CHING MD documented in this encounter [facility] 12-14-2023 History of Present illness Narrative Here for zometa/zoladex, no labs due today. Order clarification with Adonay moreno to use CMP from 11/30 for zometa today. Denies any dental issues or jaw pain. Tolerating zoladex and xtandi. Pt has order for lab work to be done 1 week prior to office visit/zometa/zoladex appt in 12 weeks. Denies any questions or concerns. 1230-zoladex and zometa given and tolerated well, next appt set up and copy of AVS given and reviewed, pt knows to go 1 week prior to OV for his lab work. documented in this encounter [facility] 12-08-2023 Telephone encounter Note Last appointment 02/03/2023 , Next appointment is 02/07/2024 Last filled 12/11/22 90 days 3 refills [facility] 12-08-2023 Miscellaneous Notes Last appointment 02/03/2023 , Next appointment is 02/07/2024 Last filled 12/11/22 90 days 3 refills documented in this encounter [facility] 12-07-2023 History of Present illness Narrative Patient ID: Izabela London is a 83 y.o. male. HPI Tolerating Xtandi well. No hot flashes, seizures or back pain. he has the following oncology history 1. 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 2. S/p REPOCH chemotherapy with IT methotrexate. IT MTX started with cycle 3 and was given on day [address] scan post treatment and BMBx showed no evidence of disease hence CR. 4. Metastatic prostate cancer diagnosed Oct 2019. Metastatic sites involve bone. Under the care of Dr. Sarmiento and was getting GnRH agonist. Initially he got Lupron and then was started on Zoladex. 5. Due to rising PSA in spite of low testosterone, started on Xtandi 160 mg p.o. daily March 2021. Review of Systems - Oncology No nausea, vomiting, diarrhea, fever, night sweats, chills, cough, shortness of breath, chest pain BSA: 2.18 meters squared BP (!) 145/82 Pulse 107 Temp 36.5 C (97.7 F) (Temporal) Ht 1.803 m (5' 11) Wt 95.1 kg (209 lb 11.2 oz) SpO2 95% BMI 29.25 kg/m Physical Exam No lymphadenopathy or hepatosplenomegaly. No lower extremity edema. Lab Results Component Value Date WBC 7.7 11/30/2023 HGB 14.8 11/30/2023 HCT 43.7 11/30/2023 MCV 96.7 11/30/2023 PLT 264 11/30/2023 Lab Results Component Value Date GLUCOSE 88 11/30/2023 CALCIUM 9.4 11/30/2023 NA 137 06/14/2023 K 4.6 06/14/2023 CO2 27 11/30/2023 CL 100 06/14/2023 BUN 21 11/30/2023 CREATININE 0.58 (L) 11/30/2023 Result Notes Component Ref Range & Units 7 d ago 3 mo ago PSA, TOTAL < OR = 4.00 ng/mL 0.65 0.47 CM Comment: The total PSA value from this assay system is standardized against the WHO standard. The test result will be approximately 20% lower when compared to the equimolar-standardized total PSA (Shirin Rhinelander). Comparison of serial PSA results should be interpreted with this fact in mind. This test was performed using the Siemens chemiluminescent method. Values obtained from different assay methods cannot be used interchangeably. PSA levels, regardless of value, should not be interpreted as absolute evidence of the presence or absence of disease. Resulting Agency [facility] Assessment/Plan he appears to be in complete remission from Burkitt's Lymphoma standpoint. 2. Rising PSA in the setting of GnRH agonist in spite of castrate levels of testosterone. Last PSA stable from 11/30/23 is stable Continue Zoladex 10.8mg depot every 12 weeks Continue Xtandi 160 mg p.o. daily. Discussed some of the side effects that include hot flashes, back pain, very low risk of seizures among others. We will touch base after bone scan and proceed accordingly. Median duration of response with xtandi is 15 months check CBC, CMP and PSA prior to next visit which is in 3 month. Continue Zometa every 12 weeks. I did discuss risk of osteonecrosis of the jaw which is 1 to 2% in patients receiving Zometa 3. I have counseled him on diet and exercise. Patient verbalizes understanding and agrees with the plan. There are no diagnoses linked to this encounter. Plan as of 12/07/23 documented in this encounter [facility] 11-23-2023 Telephone encounter Note Last appointment Visit 02.03.2023, Next appointment is Visit date not found Last filled 11.26.2022 & 07.22.2022 [facility] 11-23-2023 Miscellaneous Notes Last appointment Visit 02.03.2023, Next appointment is Visit date not found Last filled 11.26.2022 & 07.22.2022 Medication name carvedilol (Coreg) 3.125 MG tablet -- 1 po bid-- 90 days lisinopril 10 MG tablet --Take 10 mg by mouth daily-- 90 day Medication dosage: mg (Miligrams Monthly quantity needed: 90 How many day supply requestin days Medication route: oral (PO) Medication administration time(s): daily If taking medication PRN, reason for taking medication: N/A If this is a controlled substance do you receive this or any other controlled medication from any other doctor or facility: No Ordering provider: Dr. Ching Date of last office visit: 02-03-2023 Date of next office visit: 02-07-2024 Date of last refill: (see medication tab): 11-26-2022 09-24-2022 Updated/Validated preferred pharmacy: Yes Patient instructed to contact the pharmacy prior to picking up the medication: Yes documented in this encounter [facility] 11-23-2023 Telephone encounter Note Medication name carvedilol (Coreg) 3.125 MG tablet -- 1 po bid-- 90 days lisinopril 10 MG tablet --Take 10 mg by mouth daily-- 90 day Medication dosage: mg (Miligrams Monthly quantity needed: 90 How many day supply requestin days Medication route: oral (PO) Medication administration time(s): daily If taking medication PRN, reason for taking medication: N/A If this is a controlled substance do you receive this or any other controlled medication from any other doctor or facility: No Ordering provider: Dr. Ching Date of last office visit: 02-03-2023 Date of next office visit: 02-07-2024 Date of last refill: (see medication tab): 11-26-2022 09-24-2022 Updated/Validated preferred pharmacy: Yes Patient instructed to contact the pharmacy prior to picking up the medication: Yes [facility] 09-29-2023 Miscellaneous Notes Patient's request for medication is as follows: Requested Prescriptions Pending Prescriptions Disp Refills lisinopril (ZESTRIL) 10 mg tablet [Pharmacy Med Name: LISINOPRIL 10 MG TABLET] 30 tablet 0 Sig: take 1 tablet by mouth every day Last seen 12/09/2021. Over due follow up scheduled for 10/07/2023. Prescription(s) as above. Please process accordingly. Delphine Palomares LPN documented in this encounter [facility] 09-21-2023 History of Present illness Narrative Pt arrived for IV zometa and zoladex. PIV placed. CMP drawn prior to appointment. CrCl: 129. 1215: Ordered treatment completed. Patient discharged without any issues. Patient has a copy of next infusion appointment and verbalizes understanding. All questions answered. documented in this encounter [facility] 09-07-2023 History of Present illness Narrative Patient requesting a refill on his [facility] card. Patient ID: Izabela London is a 83 y.o. male. HPI Tolerating Xtandi well. No hot flashes, seizures or back pain. Continues to have knee pain from arthritis. he has the following oncology history 1. 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 2. S/p REPOCH chemotherapy with IT methotrexate. IT MTX started with cycle 3 and was given on day [address] scan post treatment and BMBx showed no evidence of disease hence CR. 4. Metastatic prostate cancer diagnosed Oct 2019. Metastatic sites involve bone. Under the care of Dr. Sarmiento and was getting GnRH agonist. Initially he got Lupron and then was started on Zoladex. 5. Due to rising PSA in spite of low testosterone, started on Xtandi 160 mg p.o. daily March 2021. Review of Systems - Oncology No nausea, vomiting, diarrhea, fever, night sweats, chills, cough, shortness of breath, chest pain BSA: 2.18 meters squared BP (!) 150/80 Pulse 62 Temp 36.3 C (97.3 F) (Temporal) Ht 1.803 m (5' 11) Wt 95 kg (209 lb 8 oz) SpO2 100% BMI 29.22 kg/m Physical Exam No lymphadenopathy or hepatosplenomegaly. No lower extremity edema. Lab Results Component Value Date WBC 7.9 03/25/2023 HGB 14.5 03/25/2023 HCT 43.3 03/25/2023 MCV 97.0 03/25/2023 PLT 272 03/25/2023 Lab Results Component Value Date GLUCOSE 95 08/30/2023 CALCIUM 8.8 08/30/2023 NA 137 06/14/2023 K 4.6 06/14/2023 CO2 24 08/30/2023 CL 100 06/14/2023 BUN 18 08/30/2023 CREATININE 0.58 (L) 08/30/2023 Lab Results Component Value Date PSA 0.443 03/25/2023 PSA 1.180 09/24/2022 PSA 0.717 06/18/2022 PSA 08/30/2023 is 0.47 which is stable Assessment/Plan he appears to be in complete remission from Burkitt's Lymphoma standpoint. 2. Rising PSA in the setting of GnRH agonist in spite of castrate levels of testosterone. Last PSA stable from 08/30/2023 is stable. Continue Zoladex 10.8mg depot every 12 weeks Continue Xtandi 160 mg p.o. daily. Discussed some of the side effects that include hot flashes, back pain, very low risk of seizures among others. We will touch base after bone scan and proceed accordingly. Median duration of response with xtandi is 15 months check CBC, CMP and PSA prior to next visit which is in 3 month. Continue Zometa every 12 weeks. I did discuss risk of osteonecrosis of the jaw which is 1 to 2% in patients receiving Zometa 3. I have counseled him on diet and exercise. Patient verbalizes understanding and agrees with the plan. There are no diagnoses linked to this encounter. documented in this encounter [facility] 06-30-2023 Miscellaneous Notes Last seen [id number]. Clerical to call to schedule overdue Follow up. Onel Shepherd LPN documented in this encounter [facility] 06-30-2023 Miscellaneous Notes Patient's request for medication is as follows: Requested Prescriptions Pending Prescriptions Disp Refills lisinopril (ZESTRIL) 10 mg tablet [Pharmacy Med Name: LISINOPRIL 10 MG TABLET] 90 tablet 0 Sig: Take 1 tablet by mouth once daily. Last seen [id number]. Message sent to Clerical to call to schedule overdue Follow up. Prescription(s) as above. Please process accordingly. Onel Shepherd LPN documented in this encounter [facility] 06-29-2023 History of Present illness Narrative Patient ID: Izabela London is a 83 y.o. male. HPI Tolerating Xtandi well. No hot flashes, seizures or back pain. Continues to have knee pain from arthritis. he has the following oncology history 1. 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 2. S/p REPOCH chemotherapy with IT methotrexate. IT MTX started with cycle 3 and was given on day [address] scan post treatment and BMBx showed no evidence of disease hence CR. 4. Metastatic prostate cancer diagnosed Oct 2019. Metastatic sites involve bone. Under the care of Dr. Sarmiento and was getting GnRH agonist. Initially he got Lupron and then was started on Zoladex. 5. Due to rising PSA in spite of low testosterone, started on Xtandi 160 mg p.o. daily March 2021. Review of Systems - Oncology No nausea, vomiting, diarrhea, fever, night sweats, chills, cough, shortness of breath, chest pain BSA: 2.2 meters squared BP (!) 158/76 (BP Location: Right arm, Patient Position: Sitting, BP Cuff Size: Adult) Pulse 63 Temp 97.2 F (36.2 C) (Temporal) Ht 5' 11 (1.803 m) Wt 212 lb 4.8 oz (96.3 kg) SpO2 96% BMI 29.61 kg/m Physical Exam No lymphadenopathy or hepatosplenomegaly. No lower extremity edema. Lab Results Component Value Date WBC 7.9 03/25/2023 HGB 14.5 03/25/2023 HCT 43.3 03/25/2023 MCV 97.0 03/25/2023 PLT 272 03/25/2023 Lab Results Component Value Date GLUCOSE 94 06/14/2023 CALCIUM 9.0 06/14/2023 NA 137 06/14/2023 K 4.6 06/14/2023 CO2 29 06/14/2023 CL 100 06/14/2023 BUN 17 06/14/2023 CREATININE 0.53 (L) 06/14/2023 Lab Results Component Value Date PSA 0.443 03/25/2023 PSA 1.180 09/24/2022 PSA 0.717 06/18/2022 Lab Results Component Value Date PSA 0.443 03/25/2023 PSA 1.180 09/24/2022 PSA 0.717 06/18/2022 Assessment/Plan he appears to be in complete remission from Burkitt's Lymphoma standpoint. 2. Rising PSA in the setting of GnRH agonist in spite of castrate levels of testosterone. Last PSA stable from March 2023. From May 2023 PSA is still not back from lab. Continue Zoladex 10.8mg depot every 12 weeks Continue Xtandi 160 mg p.o. daily. Discussed some of the side effects that include hot flashes, back pain, very low risk of seizures among others. We will touch base after bone scan and proceed accordingly. Median duration of response with xtandi is 15 months Follow-up PSA from [facility] check CBC, CMP and PSA at next visit which is in 3 month. Continue Zometa every 12 weeks. I did discuss risk of osteonecrosis of the jaw which is 1 to 2% in patients receiving Zometa 3. I have counseled him on diet and exercise. Patient verbalizes understanding and agrees with the plan. There are no diagnoses linked to this encounter. documented in this encounter [facility] 05-31-2023 Telephone encounter Note Medication name: tamsulosin (FLOMAX) 0.4 MG capsule Medication dosage: 0.4 mg (Miligrams Monthly quantity needed: 180 How many day supply requestin days Medication route: oral (PO) Medication administration time(s): 2 times a day (BID) If taking medication PRN, reason for taking medication: N/A If this is a controlled substance do you receive this or any other controlled medication from any other doctor or facility: N/A Ordering provider: Corazon Tee Date of last office visit: 02/03/23 Date of next office visit: 02/07/24 Date of last refill: (see medication tab): 02/06/22 Updated/Validated preferred pharmacy: Yes [id number] [address] [facility] Patient instructed to contact the pharmacy prior to picking up the medication: Yes [facility] 05-31-2023 Miscellaneous Notes Medication name: tamsulosin (FLOMAX) 0.4 MG capsule Medication dosage: 0.4 mg (Miligrams Monthly quantity needed: 180 How many day supply requestin days Medication route: oral (PO) Medication administration time(s): 2 times a day (BID) If taking medication PRN, reason for taking medication: N/A If this is a controlled substance do you receive this or any other controlled medication from any other doctor or facility: N/A Ordering provider: Corazon Tee Date of last office visit: 02/03/23 Date of next office visit: 02/07/24 Date of last refill: (see medication tab): 02/06/22 Updated/Validated preferred pharmacy: Yes [id number] [address] [facility] Patient instructed to contact the pharmacy prior to picking up the medication: Yes documented in this encounter [facility] 04-07-2023 Telephone encounter Note Referral requested, please fax to requested provider. JERAMIE CHING MD [facility] 04-07-2023 Miscellaneous Notes Referral requested, please fax to requested provider. JERAMIE CHING MD Name of caller: Izabela Contact phone number: [phone] Relationship to Patient: patient Provider: Helen Practice: [facility] Chief Complaint/Reason for Call: Pt. States he needs his referral sent to [facility] . Reference TE 6. Please advise. Best time of day caller can be reached: Any Patient advised that office/PCP has 24-48 business hours to return their call: N/A documented in this encounter [facility] 04-06-2023 Telephone encounter Note Name of caller: Izabela Contact phone number: [phone] Relationship to Patient: patient Provider: Helen Practice: [facility] Chief Complaint/Reason for Call: Pt. States he needs his referral sent to [facility] . Reference TE 6. Please advise. Best time of day caller can be reached: Any Patient advised that office/PCP has 24-48 business hours to return their call: N/A [facility] 03-25-2023 History of Present illness Narrative Patient arrives ambulatory for zometa and zoladex. Patient notes continued leg pain. No acute distress noted. PIV inserted, and labs collected. CBC, CMP, and PSA sent to [facility]. Plan of care discussed. Denies any needs. 1153: Tolerated injection well. No signs of reaction. Site benign. 1233: Tolerated infusion well. No signs of reaction. Calendar updated with patient. Verbalized understanding of discharge and follow up care. Discharged home ambulatory. documented in this encounter [facility] 03-25-2023 History of Present illness Narrative Patient ID: Izabela London is a 83 y.o. male. HPI Tolerating Xtandi well. No hot flashes, seizures or back pain. he has the following oncology history 1. 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 2. S/p REPOCH chemotherapy with IT methotrexate. IT MTX started with cycle 3 and was given on day [address] scan post treatment and BMBx showed no evidence of disease hence CR. 4. Metastatic prostate cancer diagnosed Oct 2019. Metastatic sites involve bone. Under the care of Dr. Sarmiento and was getting GnRH agonist. Initially he got Lupron and then was started on Zoladex. 5. Due to rising PSA in spite of low testosterone, started on Xtandi 160 mg p.o. daily March 2021. Review of Systems - Oncology No nausea, vomiting, diarrhea, fever, night sweats, chills, cough, shortness of breath, chest pain BSA: 2.16 meters squared BP (!) 161/77 Pulse 69 Temp 97.4 F (36.3 C) (Temporal) Ht 5' 11 (1.803 m) Wt 206 lb (93.4 kg) SpO2 95% BMI 28.73 kg/m Physical Exam No lymphadenopathy or hepatosplenomegaly. No lower extremity edema. Lab Results Component Value Date WBC 6.9 02/03/2023 HGB 14.3 02/03/2023 HCT 43.2 02/03/2023 MCV 97.5 02/03/2023 PLT 240 02/03/2023 Lab Results Component Value Date GLUCOSE 105 (H) 02/03/2023 CALCIUM 8.7 02/03/2023 NA 135 09/24/2022 K 4.4 09/24/2022 CO2 28 02/03/2023 CL 106 09/24/2022 BUN 15 02/03/2023 CREATININE 0.45 (L) 02/03/2023 Lab Results Component Value Date PSA 1.180 09/24/2022 PSA 0.717 06/18/2022 PSA 0.343 03/26/2022 PSA January 2023 was 0.2 Assessment/Plan he appears to be in complete remission from Burkitt's Lymphoma standpoint. 2. Rising PSA in the setting of GnRH agonist in spite of castrate levels of testosterone. Last PSA stable Continue Zoladex 10.8mg depot every 12 weeks Continue Xtandi 160 mg p.o. daily. Discussed some of the side effects that include hot flashes, back pain, very low risk of seizures among others. We will touch base after bone scan and proceed accordingly. Median duration of response with xtandi is 15 months Follow-up labs from today. Check CBC, CMP and PSA at next visit which is in 3 month. Continue Zometa every 12 weeks. I did discuss risk of osteonecrosis of the jaw which is 1 to 2% in patients receiving Zometa 3. I have counseled him on diet and exercise. Patient verbalizes understanding and agrees with the plan. There are no diagnoses linked to this encounter. Patient seen by Dr Urias Labs drawn right arm 1 stick 1 lav 1 sst Cbc cmp sent to [facility] documented in this encounter [facility] 03-08-2023 History of Present illness Narrative Specialty Pharmacy Note - Yearly Follow-up Reviewed chart for patient, to assess oral oncology therapy, enzalutamide. Patient has been on current medication regimen for approximately 2 years. I discussed therapy with patient today via phone. Chart reviewed for, and discussed with patient, the following: - medication dosing and indication - enzalutamide 160 mg once daily (prostate cancer) - home medication list assessed for potential drug interactions. Reviewed medication list with patient and updated as necessary. Reviewed. No changes. No new drug interactions noted with enzalutamide - recent labs - Last PSA 02/03/2023 <0.1 - recent clinic notes assessed for mentions of worsening symptoms or side effects. Reviewed side effects with patient. Per patient report, none - medication fill dates reviewed from pharmacy software, if available, to assess for adherence. Patient fills at [facility]. Reviewed administration instructions and confirmed adherence. Patient reported missing doses: none Assessment/Plan Patient therapy reviewed for appropriateness. Spoke with Izabela this morning and he reports doing very well on therapy. He continues to take 4 capsules daily and reports excellent adherence. Reviewed side effects- Izabela denies any at this time. Aware of upcoming appt on 03/25. [facility] will continue to coordinate refills of enzalutamide and provide clinical pharmacy services. Follow up plan: Annually Confirmed patient has direct phone number for specialty pharmacy personnel Kimberlee Alva, PharmD, BCACP, CSP [facility] [phone] documented in this encounter [facility] 02-15-2023 Telephone encounter Note Ordered. JERAMIE CHING MD [facility] 02-15-2023 Miscellaneous Notes Ordered. JERAMIE CHING MD Patient requesting refill on Calcium Carb-Cholecalciferol (OYSTER SHELL CALCIUM W/D) 500-200 MG-UNIT TABS tablet. [facility]/pharmacy #[id number] [place] [address] P: [phone] F: [phone] documented in this encounter [facility] 02-15-2023 Telephone encounter Note Patient requesting refill on Calcium Carb-Cholecalciferol (OYSTER SHELL CALCIUM W/D) 500-200 MG-UNIT TABS tablet. [facility]/pharmacy #[id number] [facility], [place] - [address] [facility] P: [phone] F: [phone] [facility] 02-03-2023 History of Present illness Narrative Images from the original note were not included. [facility] [address] [place] [id number] Dept: [phone] Dept Chief Complaint: Izabela London is an 83 y.o. male here for an annual wellness visit. Assessment/Plan : Problem List Items Addressed This Visit Circulatory Essential hypertension Relevant Orders Comprehensive metabolic panel Genitourinary Elevated PSA Relevant Orders CBC PSA, total and free Other Pure hypercholesterolemia Relevant Orders Lipid panel Other Visit Diagnoses Routine general medical examination at health care facility - Primary Labs today Schedule eye exam for followup routine Followup with oncology as scheduled. Annual wellness visit with me after one year. I have reviewed and reconciled the medication list with the patient today. Current Outpatient Medications Medication Sig Dispense Refill aspirin 81 MG EC tablet Take 81 mg by mouth in the morning. Calcium Carb-Cholecalciferol (Oyster Shell Calcium w/D) 500-200 MG-UNIT tablet Take 1 tablet by mouth daily. Calcium Carbonate-Vitamin D (calcium-vitamin D) 500-200 MG-UNIT tablet Take 1 tablet by mouth daily. carvedilol (Coreg) 3.125 MG tablet 1 po bid 180 tablet 3 cholecalciferol (Vitamin D-3) 125 MCG (5000 UT) capsule Take 5,000 Units by mouth in the morning. enzalutamide (Xtandi) 40 MG chemo capsule TAKE 4 CAPSULES BY MOUTH DAILY 120 capsule 3 enzalutamide (Xtandi) 40 MG chemo capsule TAKE 4 CAPSULES BY MOUTH DAILY 120 capsule 3 ibuprofen 600 MG tablet Take 1 tablet by mouth 3 times daily as needed. lisinopril 10 MG tablet Take 10 mg by mouth daily. simvastatin (Zocor) 20 MG tablet 1 po each evening 90 tablet 3 tamsulosin (Flomax) 0.4 MG 24 hr capsule Take 0.4 mg by mouth in the morning and 0.4 mg in the evening. No current facility-administered medications for this visit. The following health maintenance schedule was reviewed with the patient and provided in printed form in the after visit summary: Health Maintenance Topic Date Due Hepatitis B Vaccines (1 of 3 - 3-dose series) Never done Diabetes Screening 03/11/2022 Lipid Panel 03/09/2027 DTaP/Tdap/Td Vaccines (3 - Td or Tdap) 04/01/2027 Influenza Vaccine Completed Pneumococcal Vaccine: 65+ Years Completed Zoster Vaccines Completed COVID-19 Vaccine Completed HIB Vaccines Aged Out IPV Vaccines Aged Out Hepatitis A Vaccines Aged Out Meningococcal Vaccine Aged Out Rotavirus Vaccines Aged Out HPV Vaccines Aged Out List of current healthcare providers: Patient Care Team: Jeramie Chign MD as PCP - General Kristen Urias MD as Consulting Physician (Oncology) No orders of the defined types were placed in this encounter. Subjective : Review of Systems Physical Exam Health Risk Assessment: General In general, how would you say your health is?: Good In the past 7 days, have you experienced any of the following: New or Increased Pain, New or Increased Fatigue, Loneliness, Social Isolation, Stress or Anger?: No Do you get the social and emotional suppport you need?: Yes Interventions: Health Habits / Nutrition On average, how many days per week do you engage in moderate to strenous exercise (like a brisk walk)?: 4 days On average, how man minutes do you engage in exercise at this level?: 40 min Have you lost any weight without trying in the past 3 months? : No Have you seen the dentist within the past year?: Yes Interventions: Hearing / Vision Do you or your family notice any trouble with your hearing that hasn't been managed with hearing aids?: No Do you have difficulty driving, watching TV, or doing any of your daily activities because of your eyesight?: No Have you had an eye exam within the past year?: (!) No Vision Screening Right eye Left eye Both eyes Without correction With correction 20/40 20/20 20/20 Interventions: Safety Do you have a working smoke detector?: Yes Do you have any tripping hazards - loose or unsecured carpets or rugs?: No Do you have any tripping hazards - clutter in doorways, halls, or stairs?: No Do you have either shower bars, grab bars, non-slip mats or non-slip surfaces in your shower or bathtub? : Yes Do all your stairways have a railing or banister? : Yes Do you fasten your seatbelt when you are in a car?: Yes Interventions: ADL In the past 7 days, did you need help from others to perform any of the following everyday activities: Eating, dressing, grooming,bathing, toileting, or walking / balance? : No In the past 7 days, did you need help from others to take care of any of the following: laundry, housekeeping, banking / finances,shopping, telephone use, food preparation, transportation, or taking medications? : No Interventions: Living Will Do you have a living will?: Yes Interventions: Cognitive: Interventions: Fall Risk: Fall Risk One or more falls in the last year:: Yes Advised to use a cane or walker to get around safely:: Yes Feels unsteady when walking:: Yes Steadies self on furniture while walking at home:: Yes Worried about falling:: Yes Interventions: Depression Screening: Over the past 2 weeks, how often have you been bothered by any of the following problems? Little interest or pleasure in doing things: Not at all Feeling down, depressed, or hopeless: Not at all Patient Health Questionnaire-2 Score: 0 [place] Suicide Severity Rating Scale (Screener/Recent Self-Report) 1. Wish to be (Past 1 Month): No 2. Non-Specific Active Suicidal Thoughts (Past 1 Month): No 6. Suicidal Behavior (Lifetime): No Calculated C-SSRS Risk Score (Lifetime/Recent): No Risk Indicated Interventions: Tobacco Use: Social History Tobacco Use Smoking Status Former Types: Cigarettes Quit date: 06/24/1977 Years since quittin.6 Smokeless Tobacco Never Interventions: Alcohol Use: Audit Alcohol Screening Q1: How often do you have a drink containing alcohol?: Monthly or less Q2: How many drinks containing alcohol do you have on a typical day when you are drinking?: 1 or 2 Q3: How often do you have six or more drinks on one occasion?: Never Audit-C Score: 1 Skip to questions 9-10?: 1 Interventions: Drug Use: Drug Abuse Screening Test (DAST-10) Have you used drugs other than those required for medical reasons?: No Do you use more than one drug at a time?: No Are you always able to stop using drugs when you want to?: Yes Have you had blackouts or flashbacks as a result of drug use?: No Do you ever feel bad or guilty about your drug use?: No Does your spouse (or parents) ever complain about your involvement with drugs?: No Have you ever neglected your family or missed work because of your use of drugs?: No Have you engaged in illegal activities in order to obtain drugs?: No Have you ever experienced withdrawal symptoms as a result of heavy drug intake?: No Have you had medical problems as a result of your drug use (e.g., memory loss, hepatitis, convulsions, bleeding, etc.)?: No DAST-10 Score: 0 Interventions: Objective : BP 122/64 (BP Location: Right arm, Patient Position: Sitting, BP Cuff Size: Adult) Pulse 60 Ht 5' 11 (1.803 m) Wt 213 lb 3.2 oz (96.7 kg) SpO2 97% BMI 29.74 kg/m Vision Screening Right eye Left eye Both eyes Without correction With correction 20/40 20/20 20/20 documented in this encounter [facility] 02-03-2023 Instructions Pretty Aburto MA - 02/03/2023 8:00 AM EDT Labs today Schedule eye exam for followup routine Followup with oncology as scheduled. Annual wellness visit with me after one year. documented in this encounter [facility] 12-23-2022 History of Present illness Narrative Pt here today for Zometa infusion and Zoladex injection, both of which he receives q3mo. Has no complaints on arrival and appears well. Only reports some chronic knee pain. Denies recent dental work. POC reviewed and pt agreeable. PIV placed with ease. No lab orders today, CMP on 12/15. 1137 Pt denied lidocaine. Prefers just ice application to area for pain tolerance. Zoladex given in right lower abdomen and pt tolerated well. Bandaid applied to site. PIV removed and gauze/coban to site. Calendar updated and copy provided. Pt ambulatory home safely with use of cane in no acute distress documented in this encounter [facility] 12-23-2022 History of Present illness Narrative Patient ID: Izabela London is a 82 y.o. male. HPI Tolerating Xtandi well. No hot flashes, seizures or back pain. he has the following oncology history 1. 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 2. S/p REPOCH chemotherapy with IT methotrexate. IT MTX started with cycle 3 and was given on day [address] scan post treatment and BMBx showed no evidence of disease hence CR. 4. Metastatic prostate cancer diagnosed Oct 2019. Metastatic sites involve bone. Under the care of Dr. Sarmiento and was getting GnRH agonist. Initially he got Lupron and then was started on Zoladex. 5. Due to rising PSA in spite of low testosterone, started on Xtandi 160 mg p.o. daily March 2021. Review of Systems - Oncology No nausea, vomiting, diarrhea, fever, night sweats, chills, cough, shortness of breath, chest pain BSA: 2.15 meters squared BP 126/76 Pulse 64 Temp 97.9 F (36.6 C) (Temporal) Ht 5' 11 (1.803 m) Wt 203 lb (92.1 kg) SpO2 98% BMI 28.31 kg/m Physical Exam No lymphadenopathy or hepatosplenomegaly. No lower extremity edema. 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 2. Rising PSA in the setting of GnRH agonist in spite of castrate levels of testosterone. Bone scan shows relatively stable disease. Continue Zoladex 10.8mg depot every 12 weeks Continue Xtandi 160 mg p.o. daily. Discussed some of the side effects that include hot flashes, back pain, very low risk of seizures among others. We will touch base after bone scan and proceed accordingly. Median duration of response with xtandi is 15 months PSA ok. Check CBC, CMP and PSA at next visit which is in 3 month. Continue Zometa every 12 weeks. I did discuss risk of osteonecrosis of the jaw which is 1 to 2% in patients receiving Zometa 3. I have counseled him on diet and exercise. Patient verbalizes understanding and agrees with the plan. Diagnoses and all orders for this visit: Prostate cancer (CMS/HCC) (HCC) Bone metastasis (HCC) documented in this encounter [facility] 12-11-2022 Telephone encounter Note Medication name: simvastatin (Zocor) 20 MG tablet Order Details Dose, Route, Frequency: As Directed Dispense Quantity: -- Refills: -- Sig: TAKE 1 TABLET EVERY DAY AT NIGHT Ordering provider: Dr Ching Date of last office visit: 2022 Date of next office visit: 02-03-2023 Date of last refill: (see medication tab): 09-03-22 Updated/Validated preferred pharmacy: Yes Patient instructed to contact the pharmacy prior to picking up the medication: No [facility] 12-11-2022 Miscellaneous Notes Medication name: simvastatin (Zocor) 20 MG tablet Order Details Dose, Route, Frequency: As Directed Dispense Quantity: -- Refills: -- Sig: TAKE 1 TABLET EVERY DAY AT NIGHT Ordering provider: Dr Ching Date of last office visit: 2022 Date of next office visit: 02-03-2023 Date of last refill: (see medication tab): 09-03-22 Updated/Validated preferred pharmacy: Yes Patient instructed to contact the pharmacy prior to picking up the medication: No documented in this encounter [facility] 11-26-2022 Telephone encounter Note Medication name: carvedilol (COREG) Medication dosage: 3.125 mg (Miligrams Monthly quantity needed: 60 How many day supply requestin days Medication route: oral (PO) Medication administration time(s): 2 times a day (BID) If taking medication PRN, reason for taking medication: N/A If this is a controlled substance do you receive this or any other controlled medication from any other doctor or facility: N/A Ordering provider: Dr Ching Date of last office visit: 2022 Date of next office visit: 02.03.2023 Date of last refill: (see medication tab): 12.01.2021 Updated/Validated preferred pharmacy: Yes Patient instructed to contact the pharmacy prior to picking up the medication: Yes [facility] 11-26-2022 Miscellaneous Notes Medication name: carvedilol (COREG) Medication dosage: 3.125 mg (Miligrams Monthly quantity needed: 60 How many day supply requestin days Medication route: oral (PO) Medication administration time(s): 2 times a day (BID) If taking medication PRN, reason for taking medication: N/A If this is a controlled substance do you receive this or any other controlled medication from any other doctor or facility: N/A Ordering provider: Dr Ching Date of last office visit: 2022 Date of next office visit: 02.03.2023 Date of last refill: (see medication tab): 12.01.2021 Updated/Validated preferred pharmacy: Yes Patient instructed to contact the pharmacy prior to picking up the medication: Yes documented in this encounter [facility] 09-24-2022 History of Present illness Narrative Patient arrived ambulatory with a pollo A&Ox3, pt here for zometa and zoladex every 12 weeks. Pt verbalized understanding of plan of care today. Pt denies any new complaints today, no significant change in the toxicity assessment. He is coming from an office visit today with Dr. Loving. No recent dental work he reports. He denies jaw pain or swelling. He denies any new joint/ hip pain. He denies need for lidocaine for the zoladex and only wants ice for his abd. Ice provided. He reports getting over covid a month ago. 1123 CBC/diff drawn from IV start and sent to [facility]. CMP and PSA drawn from IV start and sent to [facility]. 1155 Pt rosita zoladex in the left abd well. 1215 Gave pt a copy of the calender and they verb underst. 1304 Pt tolerated treatment well without incident. Pt verbalizes an understanding of their discharge instructions and when to call their physician. Pt aware of their next scheduled appointment. documented in this encounter [facility] 06-30-2022 Miscellaneous Notes Patient's request for medication is as follows: Requested Prescriptions Pending Prescriptions Disp Refills lisinopril (ZESTRIL, PRINIVIL) 10 mg tablet [Pharmacy Med Name: LISINOPRIL 10 MG TABLET] 90 tablet Sig: TAKE 1 TABLET BY MOUTH EVERY DAY Last seen 12/09/[address] Mariaelena FRY SHOW FOR 06/23/2022 APPOINTMENT Prescription(s) as above. Please process accordingly. Camila Irene MA documented in this encounter [facility] 06-25-2022 History of Present illness Narrative Pt arrived ambulatory from with Dr. Urias for C5 D1 Zometa infusion and treatment 6 Zoladex injection today. Pt denies pain. CMP drawn 06/18/22 for treatment today. Pt denies jaw pain/swelling and denies any recent or upcoming dental procedures. 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 1228- Pt tolerated treatment well and without incident. Calender updated, copy provided to pt. Pt discharged home without complication. Aware of next appt date/time. [facility] History of Present illness Narrative Arrived ambulatory for Zoladex/Zometa. No labs ordered today. CMP was collected on 03/26. PIV placed with ease. No recent dental work/jaw pain. Reports neuropathy/pain in feet to knees. Denies other concerns. POC reviewed. 1345-Tolerated infusion and injection without incident. Gauze and tape to L abd. PIV dcd, gauze and coban to site. Patient aware of next appt, calendar updated. Patient discharged ambulatory to home. documented in this encounter [facility] Work Phone: 01-08-2022 History of Present illness Narrative Patient arrived ambulatory for zoladex/zometa. He denies recent dental procedures other than cleaning. He is aware of dental precautions. IV started with ease. Patient declines lidocaine and places ice on his abdomen prior to zoladex. Patient tolerated well. Calendar updated and patient discharged. documented in this encounter [facility] Work Phone: 07-17-2021 History of Present illness Narrative Pt arrived ambulatory for zometa infusion and zoladex injection. Pt denies any complaints. No labs ordered for today. OK to use CMP from 06/23/21. PIV placed with ease. Pt verbalizes understanding of POC. Pt denies any dental issues and had dental clearance. 1540 Pt tolerated well. Discharged in stable condition with updated calendar. documented in this encounter [facility] Work Phone: 04-24-2021 History of Present illness Narrative Pt arrived ambulatory for Zoladex injection today. Pt denies pain. No labs drawn/ordered. Pt notes peripheral neuropathy in feet, no other complaints. New chemo consent signed for oral chemotherapy and Zoladex injection. Chemotherapy information packet provided to pt from the office. 1335: Pt tolerated Zoladex injection in LLQ abdomen well and without incident. Calender updated and provided copy to pt. Pt discharged home without complication. Aware of next appt date/time. documented in this encounter [employer] Work Phone: 05-18-2017 History of Past i llness Narrative Problem Noted Date Resolved Date Angina pectoris 05/18/2017 documented as of this encounter (statuses as of 07/02/2022) [facility] History of Past illness Narrative* Problem Noted Date Diagnosed Date Resolved Date Angina pectoris 05/18/2017 documented as of this encounter (statuses as of 06/30/2023) [facility] History of Past illness Narrative* Problem Noted Date Diagnosed Date Resolved Date Angina pectoris 05/18/2017 documented as of this encounter (statuses as of 07/02/2023) [facility] History of Past illness Narrative* Problem Noted Date Diagnosed Date Resolved Date Angina pectoris 05/18/2017 documented as of this encounter (statuses as of 09/30/2023) [facility] Malignant neoplasm of prostate (HCC) Malignant neoplasm of prostate 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 Prostate cancer (HCC) Malignant neoplasm of prostate 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 documented in this encounter [employer] Work Phone: Evaluation note* Diagnosis Bone metastasis (HCC)- Primary Secondary malignant neoplasm of bone and bone marrow Prostate cancer (HCC) Malignant neoplasm of prostate documented in this encounter [facility] Work Phone: Evaluation note* Diagnosis Other specified abnormal findings of blood chemistry documented in this encounter [facility] Work Phone: Evaluation note* Diagnosis Bone metastasis (HCC)- Primary Secondary malignant neoplasm of bone and bone marrow Prostate cancer (HCC) Malignant neoplasm of prostate documented in this encounter [facility] Work Phone: Evaluation note* Diagnosis Cyst of kidney, acquired Acquired cyst of kidney Calculus of kidney Complex renal cyst Other specified congenital cystic kidney disease Right renal stone documented in this encounter [facility] Work Phone: Evaluation note* Diagnosis Bone metastasis (HCC)- Primary Secondary malignant neoplasm of bone and bone marrow Prostate cancer (HCC) Malignant neoplasm of prostate documented in this encounter [facility] Work Phone: Evaluation note* Diagnosis Bone metastasis (HCC)- Primary Secondary malignant neoplasm of bone and bone marrow Prostate cancer (HCC) Malignant neoplasm of prostate documented in this encounter [facility] Work Phone: Evaluation note* Diagnosis Bone metastasis (HCC)- Primary Secondary malignant neoplasm of bone and bone marrow Prostate cancer (HCC) Malignant neoplasm of prostate documented in this encounter [facility] Work Phone: Evaluation note* Diagnosis Essential hypertension Unspecified essential hypertension [facility] Routine general medical examination at health care facility- Primary Routine general medical examination at a health care facility Elevated PSA Elevated prostate specific antigen (PSA) Essential hypertension Unspecified essential hypertension Pure hypercholesterolemia [facility] Diagnosis Prostate cancer (HCC)- Primary Malignant neoplasm of prostate [facility] Diagnosis Malignant neoplasm metastatic to bone (HCC)- Primary Prostate cancer (HCC) Malignant neoplasm of prostate documented in this encounter [facility] Diagnosis Prostate cancer (HCC) Malignant neoplasm of prostate Malignant neoplasm metastatic to bone (HCC) documented [facility] this [facility] Diagnosis Elevated PSA- Primary Elevated prostate specific antigen (PSA) documented in this encounter [facility]* Diagnosis Gait disorder- Primary Abnormality of gait 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, left documented [facility] this [facility] Diagnosis Malignant neoplasm metastatic to bone (HCC)- Primary Prostate cancer (HCC) Malignant neoplasm of prostate documented in this encounter [facility]* Diagnosis Essential hypertension Unspecified essential hypertension [facility] Prostate cancer (HCC) Malignant neoplasm of prostate documented in this encounter [facility] Diagnosis Prostate cancer (HCC)- Primary Malignant neoplasm of prostate Encounter for screening for malignant neoplasm of prostate documented in this encounter [facility]* Diagnosis Malignant neoplasm metastatic to bone (HCC) Prostate cancer (HCC) Malignant neoplasm of prostate documented in this encounter [facility]* Diagnosis Essential hypertension Unspecified essential hypertension [facility] Diagnosis Essential hypertension- Primary Unspecified essential hypertension 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) [facility] Diagnosis Prostate cancer (HCC) Malignant neoplasm of prostate documented in this encounter [facility]* Diagnosis Prostate cancer (HCC)- Primary Malignant neoplasm of prostate Screening for prostate cancer Special screening for malignant neoplasm of prostate [facility]* Diagnosis Malignant neoplasm metastatic to bone (HCC)- Primary Prostate cancer (HCC) Malignant neoplasm of prostate documented in this encounter [facility]* Diagnosis 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)- Primary documented [facility]* Diagnosis Malignant neoplasm metastatic to bone (HCC) Prostate cancer (HCC) Malignant neoplasm of prostate documented in this encounter [facility]* Diagnosis Acute bacterial bronchitis- Primary 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 (HCC) documented in this encounter [facility]* Diagnosis Prostate cancer (HCC) Malignant neoplasm of prostate documented in this encounter [facility]* Diagnosis Routine general medical examination at health care facility- Primary Routine general medical examination at a health care facility Prostate cancer (HCC) Malignant neoplasm of prostate Essential hypertension Unspecified essential hypertension 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 Pure hypercholesterolemia Weakness of both lower extremities Gait disorder Abnormality of gait documented in this encounter [facility]* Diagnosis Malignant neoplasm metastatic to bone (HCC)- Primary Prostate cancer (HCC) Malignant neoplasm of prostate documented in this encounter [facility]* Diagnosis Prostate cancer (HCC)- Primary Malignant neoplasm of prostate Screening for prostate cancer Special screening for malignant neoplasm of prostate documented in this encounter [facility]* Diagnosis Prostate cancer (HCC)- Primary Malignant neoplasm of prostate Malignant neoplasm metastatic to bone (HCC) documented in this encounter [facility]* Diagnosis Prostate cancer (HCC) Malignant neoplasm of prostate documented in this encounter [facility]* Diagnosis Bronchitis- Primary Bronchitis, not specified as acute or chronic Fever, unspecified fever cause [facility] this [facility] Diagnosis Prostate cancer (HCC)- Primary Malignant neoplasm of prostate Malignant neoplasm metastatic to bone (HCC) documented [facility] this [facility]* Diagnosis Prostate cancer (HCC)- Primary Malignant neoplasm of prostate Malignant neoplasm metastatic to bone (HCC) [facility] Diagnosis Bronchitis Bronchitis, not specified as acute or chronic documented in this encounter [facility]* Diagnosis 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 Adult failure to thrive 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 failure to thrive Pressure injury of right buttock, stage 3 (HCC) documented in this encounter [facility]* Diagnosis Prostate cancer metastatic to multiple sites (HCC)- Primary Needs flu shot Need for prophylactic vaccination and inoculation against influenza History of renal stone Physical deconditioning Muscular wasting and disuse atrophy, not elsewhere classified 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 documented in this encounter [facility]* Diagnosis Elevated prostate specific antigen (PSA) documented in this encounter [facility]* Diagnosis Malignant neoplasm metastatic to bone (HCC)- Primary Prostate cancer (HCC) Malignant neoplasm of prostate documented in this encounter [facility]* Diagnosis Prostate cancer (HCC)- Primary Malignant neoplasm of prostate documented in this [facility]* Diagnosis Malignant neoplasm metastatic to bone (HCC) Prostate cancer (HCC) Malignant neoplasm of prostate [facility] Diagnosis Prostate cancer (HCC)- Primary Malignant neoplasm of prostate documented in this encounter [facility]* Diagnosis Prostate cancer (HCC) Malignant neoplasm of prostate documented in this [facility]* Diagnosis Essential hypertension- Primary Unspecified essential hypertension 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) documented [facility] this encounter [facility]* Diagnosis Prostate cancer (CMS/HCC) (HCC)- Primary Malignant neoplasm of prostate 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 documented in this encounter [facility]* Diagnosis Prostate cancer (CMS/HCC) (HCC)- Primary Malignant neoplasm of prostate 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 documented [facility] this [facility]* Diagnosis Prostate cancer (CMS/HCC) (HCC)- Primary Malignant neoplasm of prostate 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 [facility] Diagnosis Prostate cancer (CMS/HCC) (HCC) Malignant neoplasm of prostate 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 [facility] Diagnosis Prostate cancer (HCC)- Primary Malignant neoplasm of prostate [facility]* Diagnosis Malignant neoplasm metastatic to bone (HCC)- Primary Prostate cancer (HCC) Malignant neoplasm of prostate [facility]* Diagnosis Malignant neoplasm metastatic to bone (HCC)- Primary Prostate cancer (HCC) Malignant neoplasm of prostate [facility] Diagnosis Prostate cancer (HCC)- Primary Malignant neoplasm of prostate Malignant neoplasm metastatic to bone (HCC) [facility]* Diagnosis 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) [facility]* Diagnosis Prostate cancer (HCC) Malignant neoplasm of prostate [facility]* Diagnosis Routine general medical examination at health care facility- Primary Routine general medical examination at a health care facility Weakness of both lower extremities 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 History of heart artery stent 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 Essential hypertension Unspecified essential hypertension Prostate cancer (HCC) Malignant neoplasm of prostate [facility]* Diagnosis Prostate cancer (HCC)- Primary Malignant neoplasm of prostate Malignant neoplasm metastatic to bone (HCC) [facility]* Diagnosis Prostate cancer (HCC)- Primary Malignant neoplasm of prostate Malignant neoplasm metastatic to bone (HCC) [facility]* Diagnosis Prostate cancer (HCC)- Primary Malignant neoplasm of prostate Malignant neoplasm metastatic to bone (HCC) [facility]* Diagnosis Prostate cancer (HCC) Malignant neoplasm of prostate Malignant neoplasm metastatic to bone (HCC) [facility]* Diagnosis Malignant neoplasm metastatic to bone (HCC)- Primary [facility]* Diagnosis Malignant neoplasm metastatic to bone (HCC)- Primary documented in this encounter [facility] note* Diagnosis Malignant neoplasm metastatic to bone (HCC)- Primary Prostate cancer (HCC) Malignant neoplasm of prostate documented in this encounter [facility] note* Diagnosis Malignant neoplasm metastatic to bone (HCC)- Primary documented in this encounter [facility] note* Diagnosis Malignant neoplasm metastatic to bone (HCC) documented in this encounter [facility] note* Diagnosis Ingrown nail of great toe of right foot- Primary documented in this encounter [facility] note* Diagnosis Malignant neoplasm metastatic to bone (HCC)- Primary documented in this encounter [facility] note* Diagnosis Malignant neoplasm of prostate (HCC)- Primary Malignant neoplasm of prostate Malignant neoplasm metastatic to bone (HCC) Prostate cancer (HCC) Malignant neoplasm of prostate documented in this encounter [facility] (narrative)* Consultation (Routine) - Pending Review Specialty Diagnoses / Procedures Referred By Contglen cleaning Referred To Contact Wound Care Diagnoses Pressure injury of right buttock, stage 3 (HCC) Procedures LA OFFICE/OUTPATIENT NEW HIGH MDM 60 MINUTES Mariam Velázquez APRN - CNP [address] [place] [address] [facility] Op Wnd Ostomy [address] [place] [address] Referral ID Status Reason Start Date Expiration Date Visits Requested Visits Authorized [id number] Pending Review Specialty Services Required 06/21/2024 06/21/2025 1 1 [facility] for visit Narrative* Treatment Plan (Routine) Status Reason Specialty Diagnoses / Procedures Referred By Contact Referred To Contact Authorized Diagnoses Prostate cancer (HCC) Bone metastasis (HCC) Kristen Urias MD [address] [facility] [place] [address] [facility] [address] [place] [address] [facility] Phone: [facility] N[facility]* Treatment Plan and Therapy Plan (Routine) - Authorized Specialty Diagnoses / Procedures Referred By Contac t Referred To Contact Diagnoses Prostate cancer (HCC) Bone metastasis (HCC) Kristen rUias MD [address] [facility] [place] [address] [facility] [address] [facility] [place] [address] Referral ID Status Reason Start Date Expiration Date V isits Requested Visits Authorized [id number] Authorized 06/23/2021 06/23/2022 1 1 [employer] Phone: reason for visit Narrative* Treatment Plan and Therapy Plan (Routine) - Authorized Specialty Diagnoses / Procedures Referred By Contac t Referred To Contact Diagnoses Prostate cancer (HCC) Bone metastasis (HCC) Kristen Urias MD [address] [facility] [place] [address] [facility] [address] [place] [address] Referral ID Status Reason Start Date Expiration Date V isits Requested Visits Authorized [id number] Authorized 04/17/2021 04/17/2022 1 1 [employer] Phone: reason for visit Narrative* Imaging (Routine) - Closed Specialty Diagnoses / Procedures Referred By Contac t Referred To Contact Radiology Diagnoses Prostate cancer (HCC) Malignant neoplasm metastatic to bone (HCC) Procedures NM bone whole body Kristen Urias MD [address] [facility] [place] [address] Phone: tel: fax: Referral ID Status Reason Start Date Expiration Date Visits Re quested Visits Authorized [id number] Closed 02/14/2025 02/14/2026 1 1 [facility] Summary Purpose Family History No Family History Records FoundNo Family History Records FoundNo Family History Records FoundNo Family History Records FoundNo Family History Records FoundNo Family History Records FoundNo Family History Records Found Advance Directives No Advanced Directives Records FoundDocuments on File Type Date Recorded 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 Advance Directives and Living Will Power of Automotive Electrical Helper Latest Code Status on File Code Status Date Activated Date Inactivated Comments Full Code 07/05/2019 11:19 AM Full Code 07/05/2019 5:47 AM 07/05/2019 11:16 AM Documents on File Type Date Recorded 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 Advance Directives and Living Will Power of Automotive Electrical Helper Latest Code Status on File Code Status Date Activated Date Inactivated Comments Full Code 07/05/2019 11:19 AM 07/06/2019 7:27 PM Full Code 07/05/2019 5:47 AM 07/05/2019 11:16 AM Latest Code Status on File Code Status Date Activated Date Inactivated Comments Full Code 07/05/2019 11:19 AM 07/06/2019 7:27 PM Documents on File Type Date Recorded 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 ACP-Advance Directive ACP-Power of Automotive Electrical Helper Documents on File Type Date Recorded 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 Total knee protocol, quad strengthening, gait training, aggressive ROM, modalities PRN. Please develop home exercise plan. WBAT operative extremity Status Reason Specialty Diagnoses / Procedures Referre d By Contact Referred To Contact Closed Radiology Diagnoses Prostate cancer (HCC) Procedures NM BONE SCAN WHOLE BODY Jeramie Sarmiento MD [address] [place] [phone] Status Reason Specialty Diagnoses / Procedures Referre d By Contact Referred To Contact Closed Radiology Diagnoses Prostate cancer (HCC) Procedures CT PELVIS W CONTRAST Jeramie Sarmiento MD [address] [place] [address] Status Reason Specialty Diagnoses / Procedures Referred By Contact Referred To Contact Pending Review Radiology Diagnoses Prostate cancer (HCC) Procedures NM BONE SCAN WHOLE BODY Jeramie Sarmiento MD [address] [facility] [address] [place] [phone] Status Reason Specialty Diagnoses / Procedures Referre d By Contact Referred To Contact Open Radiology Diagnoses Prostate cancer (HCC) Bone metastasis (HCC) Procedures NM Bone Scan Whole Body Kristen Urias MD [address] [facility] [place] [address] Status Reason Specialty Diagnoses / Procedures Referre d By Contact Referred To Contact Closed Radiology Diagnoses Complex renal cyst Right renal stone Procedures CT ABDOMEN W WO CONTRAST Corazon Tee, [employer] MAINTENANCE PERSON [address] [facility] [address] [place] [address] Specialty Diagnoses / Procedures Referred By Contac t Referred To Contact Diagnoses Prostate cancer (HCC) Malignant neoplasm metastatic to bone (HCC) Kristen Urias MD [address] [facility] [place] [address] Referral ID Status Reason Start Date Expiration Date V isits Requested Visits Authorized [id number] Pending Review 03/25/2023 09/21/2023 1 1 Specialty Diagnoses / Procedures Referred By Contac t Referred To Contact Physical Therapy Diagnoses 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, left Procedures LA OFFICE/OUTPATIENT NEW HIGH MDM 60-74 MINUTES Jeramie Ching MD [address] [facility] [address] [place] [address] Mikayla Wan, [address] [place] [address] Referral ID Status Reason Start Date Expiration Date Visits Requested Visits Authorized [id number] Authorized Eval and Treat 04/07/2023 10/04/2023 99 99 Specialty Diagnoses / Procedures Referred By Contac t Referred To Contact Diagnoses Malignant neoplasm metastatic to bone (HCC) Prostate cancer (HCC) Lukas Duncan MD [address] [facility] [address] [place] [address] Referral ID Status Reason Start Date Expiration Date V isits Requested Visits Authorized [id number] Pending Review 09/21/2023 03/19/2024 1 1 Specialty Diagnoses / Procedures Referred By Contac t Referred To Contact Diagnoses Malignant neoplasm metastatic to bone (HCC) Prostate cancer (HCC) Kristen Urias MD [address] [facility] [place] [place] [address] Referral ID Status Reason Start Date Expiration Date V isits Requested Visits Authorized [id number] Pending Review 12/14/2023 12/08/2024 1 1 Specialty Diagnoses / Procedures Referred By Contac t Referred To Contact Diagnoses Prostate cancer (HCC) Kristen Urias MD [address] [facility] [place], [address] [place] [address] Referral ID Status Reason Start Date Expiration Date Visits Re quested Visits Authorized [id number] Closed 1 1 Specialty Diagnoses / Procedures Referred By Contac t Referred To Contact Diagnoses Prostate cancer (CMS/HCC) (HCC) Bone metastasis (HCC) Kristen Urias MD [address] [facility] [place] [address] Referral ID Status Reason Start Date Expiration Date V isits Requested Visits Authorized [id number] Pending Review 09/24/2022 03/23/2023 1 1 Referral ID Status Reason Start Date Expiration Date V isits Requested Visits Authorized [id number] Pending Review 12/23/2022 06/21/2023 1 1 Discharge Instructions * Discharge Instr - Lab* Sierra Santiago LPN - 07/06/2019 3:30 PM EDT Your physician has ordered skilled home care services for you. Your home care will be provided by: [facility] [phone] * Additional Instructions* Elian Trejo PA - 07/05/2019 [facility] GENERAL SURGERY [address] [facility] [address] Dept: [phone] Loc: [phone] Dr. Kadeem Ambrosio Adult Hip and Knee Reconstruction [phone] Total/Partial Knee Discharge Instruction Physical Therapy Physical Therapy should be arranged for you prior to your discharge. Therapy should begin 1 or 2 days after surgery and continue 3 times a week for a month. Do the exercises at home on the days you do not see a therapist. Dressing Your wound will be covered by a dressing after surgery. It should usually be removed after 10 days.You can shower as long as there is no drainage from the wound. After the dressing is removed it is not recommended to apply any cream, ointment or lotion to the wound unless specifc instructions are given by your surgeon. Most of the time, your stitches will be under the skin and will dissolve on their own. If you have izabella or external stitches they can be removed 10 days after surgery as long as there is no drainage. If the wound is draining, the dressing should be changed daily. The wound should be dry and without drainage by about 7 days postoperative. If there is persistent drainage from the wound after this time period, you should call our office immediately. If there is worsening redness around the incision, you should also call the office immediately. These may be signs of a superficial or deep woundinfection and you may have to return to the office for an evaluation by one of our staff. Common concerns after knee replacement surgery include swelling and bruising. These can be quite signifcant in nature and can appear anywhere from the thigh to the toes. These are typically worse at night which can contribute to trouble sleeping comfortably for more than one to two hours at a time. Activity You will be using an assistive device (walker, crutches, or cane). Your physical therapist will help you with this. Most patients are able to get in and out of bed, use the rest room, and go up and down stairs when they go home. We d like you to get up and walk every hour after surgery. For the first 1-2 weeks you will be walking with a walker or two crutches. After that, you can start using a cane. Bathing Your dressing is waterproof. You may take a shower but not a bath. Precautions It is very common to have swelling and bruising in the thigh, lower leg and foot after surgery. Elevating your leg, doing ankle pump exercises, and using ice packs will help. Call us if the swelling does not subside overnight. Call for a temperature over 101. Take the pain medications as needed for pain. Pain pills can cause constipation. Use over the counter stool softeners like Colace to avoid constipation. If Colace is not effective use a gentle over the counter laxative such as Miralx Please refer to your medication sheet for more information regarding any prescriptions you have been given to take after surgery. Follow up office visit The Doctor would like see you in 4 weeks. If the followup appointment is not already made the office will call within 2 weeks. Please avoid any other surgery, procedure or dental procedure until cleared by Dr. Ambrosio Common Questions About Knee Replacement Question: Why does my knee click? Answer: knee prosthesis is made of hard metal and plastic. [place] will create a slight separation of the components. When you tighten your muscles or swing your leg, the pieces come in contact and may make a clicking sound. This is normal. It should not cause pain and does not mean that something is loose or wrong. Question: Why does the skin feel funny around my incision? Answer: The nerves in the skin cross the front of the knee in an inside-out direction. When an incision is made down the front of the knee, these tiny nerves are divided and the skin on the outside will feel fuzzy or numb. This sensation will lessen with time and is normal for all patients with knee replacement surgery. Question: Why is my leg discolored? Answer: You may develop some discoloration (like a bruise) in the leg. This discoloration, which may extend to the hip or ankle, will slowly disappear. Question: When can I get my knee wet? Answer: You can take a shower when your wound is dry. If you have a plastic dressing, it is waterproof. You may wash around the incision but do not scrub the incision. Water does not hinder the healing, but a strong soap could irritate the skin. Be sure to gently pat the area dry. Question: What about cocoa butter and vitamin E oil? Answer: Do not use either of these until after your four week postoperative visit. Ask for clearance to use during that visit. Question: A stitch is sticking out. What do I do? Answer: We often suture the skin from underneath to reduce scarring. The knot at the end of the stitch sometimes will protrude from the skin. Redness and a small amount of drainage may appear. Cleanse the skin with peroxide. Please notify your surgeon s of ce. Question: When can I drive my car? Answer: Usually after 4 weeks. A patient s decision to drive sooner is a personal decision related to their mobility and pain control. You cannot drive while you are taking narcotic pain medicine such as Quilcene, Percocet, Hydrocodone, Oxycodone. Question: How long will I have pain? Answer: The surgical pain tends to resolve in the first week or two. You may continue to have some soreness, stiffness and swelling anywhere from six weeks to three months. This should disappear gradually with exercise and increased activity. If you develop pain after exercising with weights or walking without a walker or crutches, you may be overworking the knee. The following should help: usingthe walker or crutches, decreasing the amount of weight used during exercises, and periodically elevating your leg with ice on it. If the pain does not resolve in a day or two, you should contact your surgeon. Question: When can I go in the swimming pool? Answer: Ordinarily, patients may resume pool activities after the first follow- up visit. Be sure tocheck with the surgeon or fellow at that time. documented in this encounter* Discharge Instr - CHAU* Luma Jo RN - 06/28/2019 10:15 AM EDT Continuity of Care Form Patient Name: Izabela London : 1940 Admit date: 06/28/2019 Discharge date: Code Status Order: No Order Advance Directives: Advance Care Flowsheet Documentation Date/Time Healthcare Directive Type of Healthcare Directive Copy in Chart Healthcare Agent Appointed Healthcare Agent's Name Healthcare Agent's Phone Number 06/28/19 1000 Yes, patient has an advance directive for healthcare treatment Living will No, copy requested from family -- -- -- Admitting Physician: No admitting provider for patient encounter. PCP: JERAIME CHING MD Discharging Nurse: Discharging Hospital Unit/Room#: No information available for this encounter. Discharging Unit Phone Number: Emergency Contact: Extended Emergency Contact Information Primary Emergency Contact: YoshisugeyLori torres [facility] Mobile Relation: Spouse Secondary Emergency Contact: Jessica London Relation: Spouse Past Surgical History: Past Surgical History: Procedure Laterality Date BACK SURGERY 2014 BONE GRAFT 1989 broken foot- bone graft COLONOSCOPY CORONARY ANGIOPLASTY WITH STENT PLACEMENT 08/2012 EYE SURGERY Bilateral cataracts MOHS SURGERY left ear TONSILLECTOMY AND ADENOIDECTOMY 1944 Immunization History: Immunization History Administered Date(s) Administered Influenza Vaccine, unspecified formulation 10/25/2007, 08/03/2010, 07/25/2015, 09/09/2016 Influenza Virus Vaccine 08/13/2011, 08/05/2012, 08/09/2014 Influenza, Quadv, IM, (6 mo and older Fluzone, Flulaval, Fluarix and 3 yrs and older Afluria) 07/18/2018 Pneumococcal Conjugate 13-valent ([id number]) 04/01/2017 Pneumococcal Polysaccharide ([id number]) 08/06/2006 Tdap (Boostrix, Adacel) 04/01/2017 Tetanus 05/25/2003 Zoster Live (Zostavax) 06/25/2010 Active Problems: Patient Active Problem List Diagnosis Code History of Burkitt's lymphoma Z85.79 Calculus of kidney N20.0 Personal history of urinary calculi Z87.442 Nocturia R35.1 Hydrocele N43.3 Spermatocele of epididymis, single N43.41 Disorder of prostate N42.9 Essential hypertension I10 Pure hypercholesterolemia E78.00 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) I25.118 History of heart artery stent Z95.5 Isolation/Infection: Isolation No Isolation Nurse Assessment: Last Vital Signs: BP 136/75 Pulse 66 Temp 98.4 F (36.9 C) (Temporal) Resp 16 Ht 5' 11 (1.803 m) Wt 234 lb (106.1 kg) SpO2 96% BMI 32.64 kg/m Last documented pain score (0-10 scale): Pain Level: 5 Last Weight: Wt Readings from Last 1 Encounters: 06/28/19 234 lb (106.1 kg) Mental Status: {IP PT MENTAL STATUS:} IV Access: { CHAU IV ACCESS:358763054} Nursing Mobility/ADLs: Walking {CHP DME ADLs:911356696} Transfer {CHP DME ADLs:353390902} Bathing {CHP DME ADLs:627648554} Dressing {CHP DME ADLs:790393448} Toileting {CHP DME ADLs:185597123} Feeding {CHP DME ADLs:620950202} Construction Management Instructor {CHP DME ADLs:322665676} Med Delivery { [facility]AU MED Delivery:210405001} Wound Care Documentation and Therapy: Elimination: Continence: Bowel: {YES / NO:} Bladder: {YES / NO:} Urinary Catheter: {Urinary Catheter:151030377} Colostomy/Ileostomy/Ileal Conduit: {YES / NO:} Date of Last BM: No intake or output data in the 24 hours ending 06/28/19 1014 No intake/output data recorded. Safety Concerns: { [facility] Safety Concerns:722549378} Impairments/Disabilities: { [facility] Impairments/Disabilities:961212105} Nutrition Therapy: Current Nutrition Therapy: { [facility] Diet List:407469431} Routes of Feeding: {[facility] DME Other Feedings:823259110} Liquids: {Urology Physician Assistant liquid thickness:83165} Daily Fluid Restriction: {CHP DME Yes amt example:955896243} Last Modified Barium Swallow with Video (Video Swallowing Test): {Done Not Done Date:} Treatments at the Time of Hospital Discharge: Respiratory Treatments: Oxygen Therapy: {Therapy; copd oxygen:20135} Ventilator: {[facility] Vent List:399864222} Rehab Therapies: {THERAPEUTIC INTERVENTION:0562488979} Weight Bearing Status/Restrictions: {[facility] Weight Bearin} Other Medical Equipment (for information only, NOT a DME order): {EQUIPMENT:417656133} Other Treatments: Patient's personal belongings (please select all that are sent with patient): {[facility] DME Belongings:473109891} RN SIGNATURE: {Esignature:238086005} CASE MANAGEMENT/SOCIAL WORK SECTION Inpatient Status Date: Readmission Risk Assessment Score: Readmission Risk Risk of Unplanned Readmission: 0 Discharging to Facility/ Agency Name: Address: Phone: Fax: Dialysis Facility (if applicable) Name: Address: Dialysis Schedule: Phone: Fax: 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 signature: {Esignature:756526022} PHYSICIAN SECTION Prognosis: {Prognosis:5077378611} Condition at Discharge: { Patient Condition:495215850} Rehab Potential (if transferring to Rehab): {Prognosis:9162959354} Recommended Labs or Other Treatments After Discharge: Physician Certification: I certify the above information and transfer of Izabela London is necessary for the continuing treatment of the diagnosis listed and that he requires {Admit to AppropriateLevel of Care:23325} for {GREATER/LESS:905524548} 30 days. Update Admission H&P: {CHP DME Changes in HandP:627899073} PHYSICIAN SIGNATURE: {Esignature:437104561} * Additional Instructions* Luma Jo RN - 06/28/2019 ..PLEASE BE AWARE THAT VISITORS UNDER THE AGE OF 12 AND FOOD/DRINKS ARE NO LONGER PERMITTED IN THE SAME DAY SURGERY DEPARTMENT. IF YOU USE A CPAP MACHINE OR RESCUE INHALER AT HOME PLEASE BRING THESE ITEMS WITH YOU THE DAY OF SURGERY. MEDICATION INSTRUCTIONS PRIOR TO SURGERY PLEASE BRING PROVIDED LIST BACK WITH YOU THE DAY OF SURGERY WITH DATE/TIME LAST DOSE OF MEDICATIONSTAKEN. MEDICATIONS TO HOLD STARTING NOW- vitamins, supplements, nsaids MEDICATIONS THAT YOU SHOULD NOT TAKE THE MORNING OF SURGERY- lisinopril MEDICATIONS THAT YOU SHOULD TAKE THE MORNING OF SURGERY- aspirin, carvedilol, simvastatin, tamsulosin * Attachments The following attachments cannot be sent through Care Everywhere. * TKR (Total Knee Replacement): Post-op (Dutch) * TKR (Total Knee Replacement): Pre-op (Dutch) * Spinal Anesthesia: General Info (Dutch) documented in this encounter History of Present Illness * Agnieszka Moore, ROHIT - 07/06/2019 11:28 AM EDT Physical Therapy Facility/Department: [facility] MED SURG Daily Treatment Note NAME: Izabela London : 1940 Date of Service: 07/06/2019 Discharge Recommendations: Home with Home health PT, Home with assist PRN Assessment Assessment: Pt has met all goals. Pts overall functional mobility is safe to go home. Pts transfers, ambulation and stairs are mod I. HEP was given and pt was showed competancy in all with good ROM. Pt would benefit from continued therapy to increase, strength, ROM and overall functional independence. REQUIRES PT FOLLOW UP: No Activity Tolerance Activity Tolerance: Patient Tolerated treatment well Patient Diagnosis(es): The encounter diagnosis was Arthritis of left knee. has a past medical history of Burkitt lymphoma (HCC), CAD (coronary artery disease), History of blood transfusion, Hyperlipidemia, and Hypertension. has a past surgical history that includes back surgery (2014); bone graft (1989); Coronary angioplasty with stent (08/2012); Tonsillectomy and adenoidectomy (194); Colonoscopy; Mohs surgery; eye surgery (Bilateral); and Total knee arthroplasty (Left, 07/05/2019). Restrictions Restrictions/Precautions Restrictions/Precautions: Weight Bearing, General Precautions, Fall Risk(on Q ) Lower Extremity Weight Bearing Restrictions Left Lower Extremity Weight Bearing: Weight Bearing As Tolerated Position Activity Restriction Other position/activity restrictions: s/p L TKA 07/05/19 Subjective General Chart Reviewed: Yes Family / Caregiver Present: Yes( and daughter) Subjective Subjective: Pt is agreeable to therapy Pain Screening Patient Currently in Pain: No Vital Signs Patient Currently in Pain: No Objective Bed mobility Comment: Pt up in chair post session Transfers Sit to Stand: Modified independent Stand to sit: Modified independent Comment: Pt denied dizziness with position change. Pt able to demonstrate proper hand placement andcontrol with ascend and descend. Pt demonstrated proper FWW safety. Ambulation Ambulation?: Yes WB Status: WBAT LLE Ambulation 1 Surface: level tile Device: Rolling Walker Assistance: Modified Independent Quality of Gait: pt demonstrates a reciprocal gait pattern, slow controlled reji, no LOB, decreased flexion on L knee during swing phase. Distance: 220ft x 1 Stairs/Curb Stairs?: Yes Stairs # Steps : 5 Stairs Height: 6 Rails: Right ascending Device: No Device Assistance: Modified independent Comment: Pt educated on proper sequence of stairs. Pt able to demonstrate using a step to pattern showing competancy. Pt had no further questions or concerns. Exercises Straight Leg Raise: 1 set of 20 reps L LE reclined Quad Sets: 1 set of 20 reps L LE reclined Heelslides: 1 set of 20 reps L LE reclined, 1 set of 20 reps sitting L LE Gluteal Sets: 1 set of 20 reps B LE isometrically Hip Abduction: 1 set of 20 reps B LE sitting isometrically Knee Long Arc Quad: 1 set of 20 reps L LE sitting Knee Short Arc Quad: 1 set of 20 reps L LE reclined Ankle Pumps: 1 set of 20 reps B LE reclined Comments: HEP was given and explained. Pt was able to complete all exercises and was educated to work on all flexion exercises. Pt educated to perform twice a day for 20 reps and get up and walk at least once an hour. Other exercises Other exercises?: Yes Other exercises 1: hip adduction 1 set of 20 reps B LE sitting isometrically Goals Short term goals Time Frame for Short term goals: 6 visits Short term goal 1: Pt will complete 2-3 sets/10 reps of LE exercises to improve LE strength (met) Short term goal 2: Pt will complete supine<->sit at mod I to improve bed mobility (met) Short term goal 3: Pt will complete sit<->stand with FWW at mod I in preparation for ambulation (met) Short term goal 4: Pt will ambulate at least 100'x1 with FWW at mod I to improve functional mobility(met) Short term goal 5: Pt will ascend/descend 1 stair without railing at mod I for entrance into home (met) Patient Goals Patient goals : to go home Plan Plan Times per week: 5 visits Times per day: Twice a day Current Treatment Recommendations: Strengthening, ROM, Balance Training, Functional Mobility Training, Transfer Training, Gait Training, Stair training, Pain Management, Home Exercise Program, SafetyEducation & Training, Patient/Caregiver Education & Training, Equipment Evaluation, Education, & procurement, Positioning Plan Comment: Goals and/or treatment plan were established in collaboration with patient Safety Devices Type of devices: Left in chair, Call light within reach, Nurse notified, Gait belt Therapy Time Individual Concurrent Group Co-treatment Time In 0950 Time Out 1020 Minutes 30 Timed Code Treatment Minutes: 28 Minutes(1 gait, 1 ther ex ) Agnieszka Moore PTA * Deepali Sweet OTA - 07/06/2019 11:00 AM EDT Occupational Therapy Facility/Department: [facility] MED SURG Daily Treatment Note NAME: Izabela London : 1940 Date of Service: 07/06/2019 Discharge Recommendations: Home with assist PRN, Home with Home health OT, Continue to assess pending progress Assessment Assessment: Pt has progressed with OT and is mod I with ADL's and transfers. Pt educated on walker safety and hand placement with transfers. Has no pain in the knee at this time. Planning on going home later and will have assist from as needed. REQUIRES OT FOLLOW UP: Yes Safety Devices Safety Devices in place: Yes Type of devices: All fall risk precautions in place;Call light within reach;Gait belt;Patient at risk for falls;Nurse notified;Left in chair Patient Diagnosis(es): The encounter diagnosis was Arthritis of left knee. has a past medical history of Burkitt lymphoma (HCC), CAD (coronary artery disease), History of blood transfusion, Hyperlipidemia, and Hypertension. has a past surgical history that includes back surgery (2014); bone graft (1989); Coronary angioplasty with stent (08/2012); Tonsillectomy and adenoidectomy (1945); Colonoscopy; Mohs surgery; eye surgery (Bilateral); and Total knee arthroplasty (Left, 07/05/2019). Restrictions Restrictions/Precautions Restrictions/Precautions: Weight Bearing, General Precautions, Fall Risk(on Q ) Lower Extremity Weight Bearing Restrictions Left Lower Extremity Weight Bearing: Weight Bearing As Tolerated Position Activity Restriction Other position/activity restrictions: s/p L TKA 07/05/19 Subjective General Chart Reviewed: Yes Family / Caregiver Present: No Subjective Subjective: Pleasant and cooperative. I only have pain in the thigh where the tourniquet was Pain Assessment Pain Level: 5 Vital Signs Patient Currently in Pain: Yes Objective ADL Grooming: Modified independent (Stood at the sink to brush teeth.) LE Bathing: Modified independent (simulated) LE Dressing: Modified independent (Donned pants and socks without AE.) Toileting: Modified independent Balance Sitting Balance: Modified independent Standing Balance: Modified independent Standing Balance Time: 3 min Activity: grooming at the sink Comment: no LOB Functional Mobility Functional - Mobility Device: Rolling Walker Activity: To/from bathroom Assist Level: Modified independent Functional Mobility Comments: Pt states It's been since 4:00 yesterday that I stood Pt cautious and walks slow initially but mod I by end of treatment. Toilet Transfers Toilet - Technique: Ambulating Equipment Used: Standard toilet Toilet Transfer: Modified independent Toilet Transfers Comments: Used grab bar for support during sit <> stand. Bed mobility Supine to Sit: Modified independent Scooting: Modified independent Transfers Sit to stand: Modified independent Stand to sit: Modified independent Transfer Comments: Cues given for hand placement. Plan Plan Times per week: 2 visits Times per day: Daily Current Treatment Recommendations: Balance Training, Functional Mobility Training, Endurance Training, Pain Management, Positioning, Safety Education & Training, Patient/Caregiver Education &Training, Equipment Evaluation, Education, & procurement, Self-Care / ADL, Home Management Training Plan Comment: POC and goals were made in collaboration with the pt. Goals Short term goals Time Frame for Short term goals: 3 visits Short term goal 1: Pt will complete functional transfers and mobility with mod I. met Short term goal 2: Pt will complete toileting with mod I. met Short term goal 3: Pt will complete LB ADLs with AE as necessary with mod I. met Short term goal 4: Pt will complete functional standing >3 minutes with mod I in order to increase occupational participation. met Short term goal 5: Pt will complete a walk in shower transfer with mod I. NA Therapy Time Individual Concurrent Group Co-treatment Time In 929 Time Out 957 Minutes 28 Timed Code Treatment Minutes: 26 Minutes(adl and ther act) SAMMI Paul * Saloni Christie RD, REDDY - 07/06/2019 7:17 AM EDT Nutrition rescreen completed. Pt assigned a level one for nutrition care. Continue on Logan for wound healing supplement as ordered by - 90 kcals, 14 g AA, and 300 mg Vitamin C per serving. Will refer to DTR for ongoing nutrition screening. * Zuhair Boyd MD - 07/06/2019 6:11 AM EDT [facility] [address] [facility] [address] Dept: [phone] Loc: [phone] Adult Hip and Knee Reconstruction Service Patient Name: Izabela London Date of : 1940 Date: 07/06/19 Assessment: s/p left TKA on 07/05/2019 doing well Plan: Continue PT - WBAT LLE Post-op abx x24h DVT Prophylaxis - ASA/SCDs Maintain silverlon dressing PT/OT D/c planning - home when clears PT Subjective: Pain controlled, tolerating diet Medications: sodium chloride flush 10 mL Intravenous 2 times per day docusate sodium 100 mg Oral BID aspirin 325 mg Oral BID traMADol 50 mg Oral Q6H carvedilol 3.125 mg Oral BID WC lisinopril 10 mg Oral Daily simvastatin 20 mg Oral Nightly tamsulosin 0.4 mg Oral Daily Physical Exam: Vitals: 07/06/19 0323 BP: 127/69 Pulse: 55 Resp: 17 Temp: 97.3 F (36.3 C) SpO2: 95% Intake and Output Summary (Last 24 hours) at Date Time Intake/Output Summary (Last 24 hours) at 07/06/2019 0612 Last data filed at 07/06/2019 0246 Gross per 24 hour Intake 2172 ml Output 1175 ml Net 997 ml General appearance - no acute distress Musculoskeletal - LLE Dressing C/D/I Fires quad/TA/EHL/GSC SILT SP/DP/TN, slightly decreased at baseline due to diabetic neuropathy WWP distally Calves soft, nontender bilateral Labs: Hemoglobin/Hematocrit: Lab Results Component Value Date HGB 14.5 07/06/2019 HCT 44.1 07/06/2019 BMP: Lab Results Component Value Date NA 140 06/27/2019 K 4.6 06/27/2019 CL 105 06/27/2019 CO2 28 06/27/2019 BUN 17 06/27/2019 LABALBU 4.0 06/27/2019 CREATININE 1.00 06/27/2019 CALCIUM 9.1 06/27/2019 GFRAA >60 07/25/2015 LABGLOM >60 07/25/2015 GLUCOSE 110 06/27/2019 Rads: Radiological Procedure reviewed. Signed by: Zuhair Boyd * Tiffany Wilson, PT - 07/05/2019 3:17 PM EDT Physical Therapy Facility/Department: [facility] MED SURG Initial Assessment NAME: Izabela London : 1940 Date of Service: 07/05/2019 Having reviewed the treatment plan and goals for this patient, I certify that the plan of care below is medically necessary and appropriate. Discharge Recommendations: Home with Home health PT, Home with assist PRN PT Equipment Recommendations Equipment Needed: No Assessment Body structures, Functions, Activity limitations: Decreased functional mobility ;Decreased strength;Decreased ROM;Decreased safe awareness;Decreased balance Assessment: Pt presents with decreased functional mobility, requiring assist s/p L TKA. Pt has residual effects of spinal anesthesia, limiting his mobility at this time. Pt has decreased standing balance and safety awareness, placing pt at risk of falls. Pt is expected to benefit from skilled therapy to address functional mobility, strength, ROM, balance, and safety awareness Prognosis: Good Decision Making: Medium Complexity History: Pt is s/p L TKA Exam: AM-PAC Clinical Presentation: Pt is s/p L TKA. Pt has as PMH as listed above that contributes to clinical presentation. Pt is expected to progress with acute PT and be safe to return home PT Education: Goals;PT Role;Plan of Care;Precautions;General Safety;Weight- bearing Education REQUIRES PT FOLLOW UP: Yes Activity Tolerance Activity Tolerance: limited by residual effects of spinal anesthesia Patient Diagnosis(es): The encounter diagnosis was Arthritis of left knee. has a past medical history of Burkitt lymphoma (HCC), CAD (coronary artery disease), History of blood transfusion, Hyperlipidemia, and Hypertension. has a past surgical history that includes back surgery (2014); bone graft (1989); Coronary angioplasty with stent (08/2012); Tonsillectomy and adenoidectomy (1944); Colonoscopy; Mohs surgery; eye surgery (Bilateral); and Total knee arthroplasty (Left, 07/05/2019). Restrictions Restrictions/Precautions Restrictions/Precautions: Weight Bearing, General Precautions, Fall Risk(on Q ) Lower Extremity Weight Bearing Restrictions Left Lower Extremity Weight Bearing: Weight Bearing As Tolerated Position Activity Restriction Other position/activity restrictions: s/p L TKA 07/05/19 Vision/Hearing Vision: Within Functional Limits Vision Exceptions: Wears glasses at all times Hearing: Within functional limits Subjective General Chart Reviewed: Yes Patient assessed for rehabilitation services?: Yes Family / Caregiver Present: Yes Subjective Subjective: Pt is agreeable to therapy Pain Screening Patient Currently in Pain: Yes Pain Assessment Pain Assessment: 0-10 Pain Level: 2 Pain Type: Surgical pain Pain Location: Knee Pain Orientation: Left Social/Functional History Social/Functional History Lives With: Spouse Type of Home: House Home Layout: Multi-level, Able to Live on Main level with bedroom/bathroom Home Access: Stairs to enter without rails Entrance Stairs - Number of Steps: 1 Bathroom Shower/Tub: Walk-in shower Bathroom Toilet: Standard Bathroom Equipment: Shower chair Home Equipment: Rolling walker, Cane ADL Assistance: Independent Homemaking Assistance: Independent Ambulation Assistance: Independent(no device) Transfer Assistance: Independent 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[employer] Objective Observation/Palpation Observation: L knee dressing and onQ clean/dry/intact AROM RLE (degrees) RLE AROM: WFL PROM LLE (degrees) LLE General PROM: knee 5-80 deg supine AROM LLE (degrees) LLE General AROM: knee 5-64 deg supine Strength RLE Strength RLE: WFL Strength LLE Strength LLE: WFL Sensation Overall Sensation Status: Impaired(pt reports neuropathy in B feet, residual effects of spinal anesthesia) Bed mobility Supine to Sit: Stand by assistance(HOB slightly elevated and no use of bed rails) Sit to Supine: Unable to assess(in chair post-session) Scooting: Stand by assistance(to EOB) Comment: denies dizziness Transfers Sit to Stand: Minimal Assistance Stand to sit: Minimal Assistance Comment: denies dizziness Ambulation Ambulation?: Yes WB Status: WBAT LLE Ambulation 1 Surface: level tile Device: Rolling Walker Assistance: Minimal assistance;2 Person assistance Quality of Gait: pt demonstrates step to pattern with decreased L stance phase, unsteadiness d/t residual effects of spinal anesthesia, no LOB Distance: 3' to chair Comments: pt with residual effects of spinal anesthesia, unsafe to ambulate farther Stairs/Curb Stairs?: No Balance Posture: Good Sitting - Static: Good Sitting - Dynamic: Good Standing - Static: Fair Standing - Dynamic: Fair Plan Plan Times per week: 6 visits Times per day: Twice a day Current Treatment Recommendations: Strengthening, ROM, Balance Training, Functional Mobility Training, Transfer Training, Gait Training, Stair training, Pain Management, Home Exercise Program, SafetyEducation & Training, Patient/Caregiver Education & Training, Equipment Evaluation, Education, & procurement, Positioning Plan Comment: Goals and/or treatment plan were established in collaboration with patient Safety Devices Type of devices: All fall risk precautions in place, Call light within reach, Gait belt, Patient atrisk for falls, Left in chair, Nurse notified OutComes Score AM-PAC Mobility Inpatient How much difficulty turning over in bed?: A Little How much difficulty sitting down on / standing up from a chair with arms?: A Little How much difficulty moving from lying on back to sitting on side of bed?: A Little How much help from another person moving to and from a bed to a chair?: A Lot How much help from another person needed to walk in hospital room?: Total How much help from another person for climbing 3-5 steps with a railing?: Total AM-PAC Inpatient Mobility Raw Score : 13 AM-PAC Inpatient T-Scale Score : 36.74 Mobility Inpatient CMS 0-100% Score: 64.91 Mobility Inpatient CMS G-Code Modifier : CL AM-PAC Score AM-PAC Inpatient Mobility Raw Score : 13 (07/05/19 1504) AM-PAC Inpatient T-Scale Score : 36.74 (07/05/19 1504) Mobility Inpatient CMS 0-100% Score: 64.91 (07/05/19 1504) Mobility Inpatient CMS G-Code Modifier : CL (07/05/19 1504) Goals Short term goals Time Frame for Short term goals: 6 visits Short term goal 1: Pt will complete 2-3 sets/10 reps of LE exercises to improve LE strength Short term goal 2: Pt will complete supine<->sit at mod I to improve bed mobility Short term goal 3: Pt will complete sit<->stand with FWW at mod I in preparation for ambulation Short term goal 4: Pt will ambulate at least 100'x1 with FWW at mod I to improve functional mobility Short term goal 5: Pt will ascend/descend 1 stair without railing at mod I for entrance into home Patient Goals Patient goals : to go home Therapy Time Individual Concurrent Group Co-treatment Time In (6686-7100; 8622-2040) Time Out Minutes Tiffany Wilson, PT, DPT * Lamar Gann, OT - 07/05/2019 3:09 PM EDT Occupational Therapy Occupational Therapy Initial Assessment Date: 07/05/2019 Patient Name: Izabela London : 1940 Having reviewed the the treatment plan and goals for this patient, I certify that the plan of care below is medically necessary and appropriate. Date of Service: 07/05/2019 Discharge Recommendations: Home with assist PRN, Home with Home health OT, Continue to assess pending progress OT Equipment Recommendations Equipment Needed: No Assessment Performance deficits / Impairments: Decreased functional mobility ;Decreased ADL status;Decreased endurance;Decreased balance;Decreased high-level IADLs Assessment: Pt was previously independent in ADLs, functional transfers and mobility; pt now requires min A x1-2 for these functional activities d/t impaired balance from residual effects of nerve block/spinal. Pt should benefit from skilled OT services in order to increase safety and independence in occupational participation. Prognosis: Good Decision Making: Medium Complexity History: Pt s/p L TKA, PMH is listed above. Exam: AM-PAC Assistance / Modification: min A OT Education: OT Role;Plan of Care;Transfer Training;Equipment Barriers to Learning: none REQUIRES OT FOLLOW UP: Yes Activity Tolerance Activity Tolerance: (limited by residual effects of nerve block/spinal) Safety Devices Safety Devices in place: Yes Type of devices: All fall risk precautions in place;Call light within reach;Gait belt;Patient at risk for falls;Nurse notified;Left in chair Restraints Initially in place: No Patient Diagnosis(es): The encounter diagnosis was Arthritis of left knee. has a past medical history of Burkitt lymphoma (HCC), CAD (coronary artery disease), History of blood transfusion, Hyperlipidemia, and Hypertension. has a past surgical history that includes back surgery (2014); bone graft (1989); Coronary angioplasty with stent (08/2012); Tonsillectomy and adenoidectomy (1945); Colonoscopy; Mohs surgery; eye surgery (Bilateral); and Total knee arthroplasty (Left, 07/05/2019). Restrictions Restrictions/Precautions Restrictions/Precautions: Weight Bearing, General Precautions, Fall Risk(on Q ) Lower Extremity Weight Bearing Restrictions Left Lower Extremity Weight Bearing: Weight Bearing As Tolerated Position Activity Restriction Other position/activity restrictions: s/p L TKA 07/05/19 Subjective General Patient assessed for rehabilitation services?: Yes Patient Currently in Pain: Yes Pain Assessment Pain Assessment: 0-10 Pain Level: 2 Pain Type: Surgical pain Pain Location: Knee Pain Orientation: Left Vital Signs Patient Currently in Pain: Yes Social/Functional History Social/Functional History Lives With: Spouse Type of Home: House Home Layout: Multi-level, Able to Live on Main level with bedroom/bathroom Home Access: Stairs to enter without rails Entrance Stairs - Number of Steps: 1 Bathroom Shower/Tub: Walk-in shower Bathroom Toilet: Standard Bathroom Equipment: Shower chair Home Equipment: Rolling walker, Cane ADL Assistance: Independent Homemaking Assistance: Independent Ambulation Assistance: Independent(no device) Transfer Assistance: Independent 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[employer] Objective Vision: Within Functional Limits Vision Exceptions: Wears glasses at all times Hearing: Within functional limits Observation/Palpation Posture: Good Observation: L knee dressing and onQ clean/dry/intact Balance Sitting Balance: Modified independent (static sitting at EOB) Standing Balance: Minimal assistance(x2 for static/dynamic standing at fww) ADL Feeding: Independent Grooming: Modified independent UE Bathing: Modified independent LE Bathing: Minimal assistance UE Dressing: Modified independent LE Dressing: Minimal assistance Toileting: Minimal assistance(transfer) Bed mobility Supine to Sit: Stand by assistance(HOB slightly elevated and no use of bed rails) Sit to Supine: Unable to assess(in chair post-session) Scooting: Stand by assistance(to EOB) Comment: Denied dizziness with changes in positioning. Transfers Stand Pivot Transfers: Minimal assistance;2 Person assistance(at [facility]- pt required additional assistd/t residual effects of nerve block/spinal ) Sit to stand: Minimal assistance Stand to sit: Minimal assistance(assist for controlled descent) Transfer Comments: x1 at [facility]- pt required VC for proper BUE and LLE placement in order to complete safe transfer. Cognition Overall Cognitive Status: WFL Sensation Overall Sensation Status: Impaired(pt reports neuropathy in B feet, residual effects of spinal anesthesia) LUE AROM (degrees) LUE AROM : WFL RUE AROM (degrees) RUE AROM : WFL LUE Strength Gross LUE Strength: WFL RUE Strength Gross RUE Strength: WFL Plan Plan Times per week: 3 visits Times per day: Daily Current Treatment Recommendations: Balance Training, Functional Mobility Training, Endurance Training, Pain Management, Positioning, Safety Education & Training, Patient/Caregiver Education &Training, Equipment Evaluation, Education, & procurement, Self-Care / ADL, Home Management Training Plan Comment: POC and goals were made in collaboration with the pt. AM-PAC Score AM-PAC Inpatient Daily Activity Raw Score: 21 (07/05/19 1440) AM-PAC Inpatient ADL T-Scale Score : 44.27 (07/05/19 1440) ADL Inpatient CMS 0-100% Score: 32.79 (07/05/19 144) ADL Inpatient CMS G-Code Modifier : CJ (07/05/191439) Goals Short term goals Time Frame for Short term goals: 3 visits Short term goal 1: Pt will complete functional transfers and mobility with mod I. Short term goal 2: Pt will complete toileting with mod I. Short term goal 3: Pt will complete LB ADLs with AE as necessary with mod I. Short term goal 4: Pt will complete functional standing >3 minutes with mod I in order to increase occupational participation. Short term goal 5: Pt will complete a walk in shower transfer with mod I. Therapy Time Individual Concurrent Group Co-treatment Time In 1334(+(14:46-14:53)) Time Out 1349 Minutes 15 Lamar Gann, OT * Brooklyn Salomon RN - 07/05/2019 10:34 AM EDT Report called to 1E RN * Veronica Lee LPN - 07/05/2019 5:49 AM EDT Taking Care of Yourself After Surgery educational sheet reviewed with pt and family. Areas of review included instructions on managing pain, nausea/vomiting, surgical site care which includes signs and symptoms of infection, constipation, the importance of Cough/Deep breathing, activity level, driving, and the importance of following instructions regarding follow-up Doctor visit. Pt voices understanding instructions on recovering after surgery. documented in this encounter* Maria R Mary RN - 12/30/2020 2:30 PM EST Arrived for first dose of Zoladex. Has taken Lupron in the past and has decided to change to Zoladex. Lexicomp print out to patient. Reviewed possible side effects and reactions with patient and patient agreeable to plan of care. In good spirits and denies pain. Ice pack applied to right lower abd for at least 5 minutes. Patient tolerated the zoladex injection well. Site benign and band aid applied. AVS to patient. No sign of reaction. Leaving ambulatory in NAD. documented in this encounter Assessments Diagnosis Arthritis of left knee- Primary Unspecified arthropathy, lower leg Diagnosis Prostate cancer (HCC) Malignant neoplasm of prostate Diagnosis Prostate cancer (HCC) Malignant neoplasm of prostate Diagnosis Essential hypertension Unspecified essential hypertension Diagnosis Hip pain Pain in joint, pelvic region and thigh Diagnosis Prostate cancer (HCC)- Primary Malignant neoplasm of prostate History of Past Illness Problem Noted Date Resolved Date Angina pectoris 05/18/2017 Additional Source Comments (unrecognized sect ion and content) No Status Records FoundNo Status Records FoundNo Status Records FoundNo Status Records FoundNo Status Records FoundNo Status Records FoundNo Status Records Found INFORMATION SOURCE (unrecogn ized section and content) DATE CREATED AUTHOR 04/19/2018 [facility] DATE CREATED AUTHOR AUTHOR'S ORGANIZ ATION 12/25/2020 [facility] DATE CREATED AUTHOR AUTHOR'S ORGANIZ ATION 12/11/2021 [facility] DATE CREATED AUTHOR AUTHOR'S ORGANIZ ATION 07/28/2022 [facility] DATE CREATED AUTHOR AUTHOR'S ORGANIZ ATION 07/09/2023 [facility] DATE CREATED AUTHOR AUTHOR'S ORGANIZ ATION 07/29/2024 [facility] DATE CREATED AUTHOR AUTHOR'S ORGANIZ ATION 08/06/2025 [facility] Source Comments (unrecognize d section and content) In the event this informatio n is protected by the Federal Confidentiality of Alcohol and Drug Abuse Patient Records regulations: The Federal rules restrict any use of the information to criminally investigate or prosecute any alcohol or drug abuse patient.[facility] the event this information is protected by the Federal Confidentiality of Alcohol and Drug Abuse Patient Records regulations: The Federal rules restrict any use of the information to criminally investigate or prosecute any alcohol or drug abuse patient.[facility] the event this information is protected by the Federal Confidentiality of Alcohol and Drug Abuse Patient Records regulations: The Federal rules restrict any use of the information to criminally investigate or prosecute any alcohol or drug abuse patient.[facility] the event this information is protected by the Federal Confidentiality of Alcohol and Drug Abuse Patient Records regulations: The Federal rules restrict any use of the information to criminally investigate or prosecute any alcohol or drug abuse patient.[facility] the event this information is protected by the Federal Confidentiality of Alcohol and Drug Abuse Patient Records regulations: The Federal rules restrict any use of the information to criminally investigate or prosecute any alcohol or drug abuse patient.[facility] Reason for Visit (unrecogniz ed section and content) Reason Comments OP Infusion Specialty Diagnoses / Procedures Referred By Contglen t Referred To Contact Diagnoses Bone metastasis (HCC) Prostate cancer (CMS/HCC) (HCC) Kristen Urias MD [address] [facility] [facility] [place], [address] [place] [address] [facility] [address] [place] [address] Referral ID Status Reason Start Date Expiration Date Visits Re quested Visits Authorized [id number] Closed 08/18/2022 02/14/2023 1 1 Reason Comments Refill Request Status Reason Specialty Diagnoses / Procedures Referred By Contact Referred To Contact Authorized Diagnoses Prostate cancer (HCC) Jeramie Sarmiento MD [address] [place] [address] [facility] [address] [place] [address] Reason Comments Medicare Annual Wellness Visit Initial Reason Onset Date Comments Med Refill 02/15/2023 Reason Comments Follow-up Specialty Diagnoses / Procedures Referred By Contac t Referred To Contact Diagnoses Malignant neoplasm metastatic to bone (HCC) Prostate cancer (HCC) Kristen Urias MD [address] [facility] [address] [place] [address] [facility] [address] [place] [address] Referral ID Status Reason Start Date Expiration Date V isits Requested Visits Authorized [id number] Pending Review 08/18/2022 02/14/2023 1 1 Reason Onset Date Comments Med Refill 05/31/2023 tamsulosin (FLOM AX) 0.4 MG capsule Reason Onset Date Comments Referral 04/06/2023 Fax Reason Comments Appointment Reason Onset Date Comments Med Refill 11/23/2023 Reason Comments Med Refill Referral ID Status Reason Start Date Expiration Date V isits Requested Visits Authorized [id number] Pending Review 08/18/2022 02/14/2023 1 1 Reason Comments URI Started 2 1/2 weeks ago - test for covid and it was negative Taking mucinex Chest congestion, cannot lay flat or it rattles Diarrhea for 4 days - went away with immodium Had chemo last week Reason Onset Date Comments Refill Medication 2024 Reason Comments Medicare Annual Wellness Visit Subsequen t Reason Comments OP Infusion Specialty Diagnoses / Procedures Referred By Contac t Referred To Contact Diagnoses Malignant neoplasm metastatic to bone (HCC) Prostate cancer (HCC) Kristen Urias MD [address] [facility] [address] [place] [address] [facility] [address] [place] [address] Reason Onset Date Comments Med Refill 05/03/2024 Reason Onset Date Comments Abdominal Pain 05/31/2024 Reason Comments Nasal Congestion Symptoms started on Wednesday, he states he has nasal congestion, diarrhea, upset stomach. Fall Spouse had to call 11 due to patient falling this morning, declines hitting his head Reason Onset Date Comments Med Refill 06/13/2024 Reason Comments Wound Care Pt comes to the ED t ian due to having bed sores on his butt. Pt is alert and oriented states he mostly sits in the chair at home and does not shift his weight pt states he has 2 open wounds. Vitals taken in triage Specialty Diagnoses / Procedures Referred By Contglen t Referred To Contact Diagnoses Failure to thrive in adult Procedures - Maria Antonia Baker MD [address] [facility] [address] [place] [address] [facility] Emergency Dept [address] [place] [address] Referral ID Status Reason Start Date Expiration Date Visits Re quested Visits Authorized [id number] 1 1 Reason Comments Hospital Follow-up Reason Onset Date Comments Other 07/27/2024 Missed Home visi t Specialty Diagnoses / Procedures Referred By Contac t Referred To Contact Diagnoses Malignant neoplasm metastatic to bone (HCC) Prostate cancer (HCC) Kristen Urias MD [address] [facility] [address] [place] [address] Phone: tel: fax: [facility] [address] [place] [address] Phone: tel: Reason Comments Follow-up Med Refill Lisinopril and carve dilol Reason Onset Date Comments Med Refill 11/26/2022 Reason Onset Date Comments Med Refill 12/11/2022 Specialty Diagnoses / Procedures Referred By Contac t Referred To Contact Diagnoses Malignant neoplasm metastatic to bone (HCC) Prostate cancer (HCC) Kristen Urias MD [address] [facility] [place], [address] [place] [address] Phone: tel: fax: [facility] [address] [place] [address] Phone: tel: Reason Onset Date Comments Med Refill 12/14/2024 Reason Comments Follow-up Reason Onset Date Comments Med Refill 03/05/2025 Reason Comments Toe Pain Right Reason Onset Date Comments Toe Pain 07/02/2025 Reason Onset Date Comments Neck Pain 05/09/2025 Referral ID Status Reason Start Date Expiration Date V isits Requested Visits Authorized [id number] Pending Review 08/18/2022 02/14/2023 1 999 Telephone Encounter - Ignacia aTvarez (Uzma) - 07/29/2020 9:06 AM EDT Miscellaneous Notes (unrecog nized section and content) Patient's request for medication is as follows: Pending Prescriptions Disp Refills LISINOPRIL 10 MG TABLET 90 tablet 3 Sig: TAKE 1 TABLET BY MOUTH EVERY DAY [place]: Yes Patient was last seen on 05/21/2020 and has appointment on 05/22/2021. Prescription(s) as above. Please process accordingly. Ignacia Tavarez documented in this encounter Care Teams (unrecognized sec tion and content) Shipping And Receiving Material Handler Relationship Specialty Start Date End Date Jeramie Ching MD [address] [facility] [address] [place] [address] PCP - General Family Medicine 10/09/16 Shipping And Receiving Material Handler Relationship Specialty Start Date End Date Jeramie Ching MD [address] [facility] [address] [place] [address] PCP - General Family Medicine 10/09/16 Shipping And Receiving Material Handler Relationship Specialty Start Date End Date Jeramie Ching MD [address] [phone] PCP - General Family Medicine 10/09/16 Shipping And Receiving Material Handler Relationship Specialty Start Date End Date Jeramie Ching [address] [phone] PCP - General Unspecified 11/10/16 Shipping And Receiving Material Handler Relationship Specialty Start Date End Date Jeramie Ching MD [address] [phone] PCP - General 10/25/18 Kristen Urias MD [address] [facility], [address] [place], [place] [phone] Consulting Physician Oncology 08/19/22 Shipping And Receiving Material Handler Relationship Specialty Start Date End Date Jeramie Ching MD [address] [phone] PCP - General 10/25/18 Kristen Urias MD [address] [facility], [address] [place], [place] [phone] Consulting Physician Oncology 08/19/22 Shipping And Receiving Material Handler Relationship Specialty Start Date End Date Jeramie Ching MD [address] [phone] PCP - General 10/25/18 Kristen Urias MD [address] [facility], [address] [place], [place] [phone] Consulting Physician Oncology 08/19/22 Shipping And Receiving Material Handler Relationship Specialty Start Date End Date Jeramie Ching MD [address] [phone] PCP - General 10/25/18 Kristen Urias MD [address] [place] [address], [address] [place], [place] [phone] Consulting Physician Oncology 08/19/22 Shipping And Receiving Material Handler Relationship Specialty Start Date End Date Jeramie Ching MD [address] [phone] PCP - General 10/25/18 Kristen Urias MD [address] [place] [address], [address] [place], [place] [phone] Consulting Physician Oncology 08/19/22 Shipping And Receiving Material Handler Relationship Specialty Start Date End Date Jeramie Ching MD [address] [phone] PCP - General 10/25/18 Kristen Urias MD [address] [place] [address], [address] [place], [place] [phone] Consulting Physician Oncology 08/19/22 Shipping And Receiving Material Handler Relationship Specialty [place] [address] [place] [phone] PCP - General 10/25/18 Kristen Urias MD [address] [place] [address], [address] [place], [place] [phone] Consulting Physician Oncology 08/19/22 Shipping And Receiving Material Handler Relationship Specialty [place] [address] [place] [phone] PCP - General 10/25/18 Kristen Urias MD [address] [place] [address], [address] [place], [place] [phone] Consulting Physician Oncology 08/19/22 Shipping And Receiving Material Handler Relationship Specialty [place] [address] [place] [phone] PCP - General 10/25/18 Kristen Urias MD [facility], [address] [place] [address] Consulting Physician Oncology 08/19/22 Shipping And Receiving Material Handler Relationship Specialty [place] [address] [place] [phone] PCP - General 10/25/18 Kristen Urias MD [address] [place] [address], [address] [place] [address] Consulting Physician Oncology 08/19/22 Shipping And Receiving Material Handler Relationship Specialty Start Date End Date Jeramie Ching MD [address] [facility] [address] [phone] PCP - General Unspecified 11/10/16 Shipping And Receiving Material Handler Relationship Specialty Start Date End Date Jeramie Ching MD [address] [phone] PCP - General Unspecified 11/10/16 Shipping And Receiving Material Handler Relationship Specialty Start [place] [address] [place] [phone] PCP - General 10/25/18 Kristen Urias MD [address] [facility] [place], [address] [place], [place] [phone] Consulting Physician Oncology 08/19/22 Shipping And Receiving Material Handler Relationship Specialty Start Date End Date Jeramie Ching MD [address] [place] [phone] PCP - General 10/25/18 Kristen Urias MD [address] [facility] [place], [address] [place], [place] [phone] Consulting Physician Oncology 08/19/22 Shipping And Receiving Material Handler Relationship Specialty Start Date End Date Jeramie Ching MD [address] [place] [phone] PCP - General 10/25/18 Kristen Urias MD [address] [facility] [place], [address] [place], [place] [phone] Consulting Physician Oncology 08/19/22 Lukas Duncan MD [address] [facility] [address] [place], [place] [phone] Consulting Physician Hematology and Oncology 09/14/23 Shipping And Receiving Material Handler Relationship Specialty Start Date End Date Jeramie Ching MD [address] [phone] PCP - General Unspecified 11/10/16 Shipping And Receiving Material Handler Relationship Specialty Start Date End Date Jeramie Ching MD [address] [facility] [address] [place] [address] PCP - General 10/25/18 Kristen Urias MD [address] [facility], [address] [place] [address] Consulting Physician Oncology 08/19/22 Lukas Duncan MD [address] [facility] [address] [place] [address] Consulting Physician Hematology and Oncology 09/14/23 Shipping And Receiving Material Handler Relationship Specialty Start Date End Date Jeramie Ching MD [address] [facility] [address] [place] [phone] PCP - General 10/25/18 Kristen Urias MD [address] [facility], [address] [place] [address] Consulting Physician Oncology 08/19/22 Lukas Duncan MD [address] [facility] [address] [place] [address] Consulting Physician Hematology and Oncology 09/14/23 Shipping And Receiving Material Handler Relationship Specialty Start Date End Date Jeramie Ching MD [address] [facility] [address] [place] [address] PCP - General 10/25/18 Kristen Urias MD [address] [facility], [address] [place] [address] Consulting Physician Oncology 08/19/22 Lukas Duncan MD [address] [facility] [address] [place] [address] Consulting Physician Hematology and Oncology 09/14/23 Shipping And Receiving Material Handler Relationship Specialty Start Date End Date Jeramie Ching MD [address] [place] [address] PCP - General 10/25/18 Kristen Urias MD [address] [place], [address] [place] [address] Consulting Physician Oncology 08/19/22 Lukas Duncan MD [address] [facility] [address] [place] [address] Consulting Physician Hematology and Oncology 09/14/23 Shipping And Receiving Material Handler Relationship Specialty Start Date End Date Jeramie Ching MD [address] [facility] [address] [place] [address] PCP - General 10/25/18 Kristen Urias MD [address] [place], [address] [place] [address] Consulting Physician Oncology 08/19/22 Lukas Duncan MD [address] [facility] [address] [place] [address] Consulting Physician Hematology and Oncology 09/14/23 Shipping And Receiving Material Handler Relationship Specialty Start Date End Date Jeramie Ching MD [address] [place] [address] PCP - General 10/25/18 Kristen Urias MD [address] [place], [address] [place] [address] Consulting Physician Oncology 08/19/22 Lukas Duncan MD [address] [facility] [address] [place] [address] Consulting Physician Hematology and Oncology 09/14/23 Shipping And Receiving Material Handler Relationship Specialty Start Date End Date Jeramie Ching MD [address] [facility] [address] [place] [phone] PCP - General 10/25/18 Kristen Urias MD [address] [place], [address] [place] [address] Consulting Physician Oncology 08/19/22 Lukas Duncan MD [address] [facility] [address] [place] [address] Consulting Physician Hematology and Oncology 09/14/23 Shipping And Receiving Material Handler Relationship Specialty Start Date End Date Jeramie Ching MD [address] [facility] [address] [place] [address] PCP - General 10/25/18 Kristen Urias MD [address] [place], [address] [place] [address] Consulting Physician Oncology 08/19/22 Lukas Duncan MD [address] [facility] [address] [place] [address] Consulting Physician Hematology and Oncology 09/14/23 Shipping And Receiving Material Handler Relationship Specialty Start Date End Date Jeramie Ching MD [address] [facility] [address] [place] [address] PCP - General 10/25/18 Kristen Urias MD [address] [facility] [place], [address] [place] [address] Consulting Physician Oncology 08/19/22 Lukas Duncan MD [address] [facility] [address] [place] [address] Consulting Physician Hematology and Oncology 09/14/23 Shipping And Receiving Material Handler Relationship Specialty Start Date End Date Jeramie Ching MD [address] [facility] [address] [place] [address] PCP - General 10/25/18 Kristen Urias MD [address] [facility] [place], [address] [place] [address] Consulting Physician Oncology 08/19/22 Lukas Duncan MD [address] [facility] [address] [place] [address] Consulting Physician Hematology and Oncology 09/14/23 Shipping And Receiving Material Handler Relationship Specialty Start Date End Date Jeramie Ching MD [address] [facility] [address] [place] [address] PCP - General 10/25/18 Kristen Urias MD [address], [address] [place] [address] Consulting Physician Oncology 08/19/22 Lukas Duncan MD [address] [place] [address] Consulting Physician Hematology and Oncology 09/14/23 Shipping And Receiving Material Handler Relationship Specialty Start Date End Date Jeramie Ching MD [address] [facility] [address] [place] [phone] PCP - General 10/25/18 Kristen Urias MD [address], [address] [place] [address] Consulting Physician Oncology 08/19/22 Lukas Duncan MD [address] [place] [address] Consulting Physician Hematology and Oncology 09/14/23 Regina Dorado, RN Nurse Navigator Oncology 03/10/24 Shipping And Receiving Material Handler Relationship Specialty Start Date End Date Jeramie Ching MD [address] [facility] [address] [place] [phone] PCP - General 10/25/18 Kristen Urias MD [address], [address] [place] [address] Consulting Physician Oncology 08/19/22 Lukas Duncan MD [address] [place] [address] Consulting Physician Hematology and Oncology 09/14/23 Regina Dorado RN Nurse Navigator Oncology 03/10/24 Shipping And Receiving Material Handler Relationship Specialty Start Date End Date Jeramie Ching MD [address] [place] [address] PCP - General 10/25/18 Kristen Urias MD [address] [place], [address] [place] [address] Consulting Physician Oncology 08/19/22 Lukas Duncan MD [address] [facility] [address] [place] [address] Consulting Physician Hematology and Oncology 09/14/23 Regina Dorado RN Nurse Navigator Oncology 03/10/24 Shipping And Receiving Material Handler Relationship Specialty Start Date End Date Jeramie Ching MD [address] [facility] [address] [place] [address] PCP - General 10/25/18 Kristen Urias MD [address] [place], [address] [place] [address] Consulting Physician Oncology 08/19/22 Lukas Duncan MD [address] [facility] [address] [place] [address] Consulting Physician Hematology and Oncology 09/14/23 Regina Dorado RN Nurse Navigator Oncology 03/10/24 Shipping And Receiving Material Handler Relationship Specialty Start Date End Date Jeramie Ching MD [address] [place] [address] PCP - General 10/25/18 Kristen Urias MD [address], [address] [place] [address] Consulting Physician Oncology 08/19/22 Lukas Duncan MD [address] [place] [address] Consulting Physician Hematology and Oncology 09/14/23 Regina Dorado, RN Nurse Navigator Oncology 03/10/24 Shipping And Receiving Material Handler Relationship Specialty Start Date End Date Jeramie Ching MD [address] [facility] [address] [place] [phone] PCP - General 10/25/18 Kristen Urias MD [address], [address] [place] [address] Consulting Physician Oncology 08/19/22 Lukas Duncan MD [address] [place] [address] Consulting Physician Hematology and Oncology 09/14/23 Regina Dorado, RN Nurse Navigator Oncology 03/10/24 Shipping And Receiving Material Handler Relationship Specialty Start Date End Date Jeramie Ching MD [address] [facility] [address] [place] [phone] PCP - General 10/25/18 Kristen Urias MD [address], [address] [place] [address] Consulting Physician Oncology 08/19/22 Lukas Duncan MD [address] [place] [address] Consulting Physician Hematology and Oncology 09/14/23 Regina Dorado, RN Nurse Navigator Oncology 03/10/24 Shipping And Receiving Material Handler Relationship Specialty Start Date End Date Jeramie Ching MD [address] [place] [address] PCP - General 10/25/18 Kristen Urias MD [address] [place], [address] [place] [address] Consulting Physician Oncology 08/19/22 Lukas Duncan MD [address] [facility] [address] [place] [address] Consulting Physician Hematology and Oncology 09/14/23 Regina Dorado RN Nurse Navigator Oncology 03/10/24 Shipping And Receiving Material Handler Relationship Specialty Start Date End Date Jeramie Ching MD [address] [facility] [address] [place] [address] PCP - General 10/25/18 Kristen Urias MD [address] [place], [address] [place] [address] Consulting Physician Oncology 08/19/22 Lukas Duncan MD [address] [place] [address] Consulting Physician Hematology and Oncology 09/14/23 Regina Dorado, RN Nurse Navigator Oncology 03/10/24 Shipping And Receiving Material Handler Relationship Specialty Start Date End Date Jeramie Ching MD [address] [place] [address] PCP - General 10/25/18 Kristen Urias MD [address], [address] [place] [address] Consulting Physician Oncology 08/19/22 Lukas Duncan MD [address] [place] [address] Consulting Physician Hematology and Oncology 09/14/23 Regina Dorado, RN Nurse Navigator Oncology 03/10/24 Shipping And Receiving Material Handler Relationship Specialty Start Date End Date Jeramie Ching MD [address] [facility] [address] [place] [address] PCP - General 10/25/18 Kristen Urias MD [address], [address] [place] [address] Consulting Physician Oncology 08/19/22 Lukas Duncan MD [address] [place] [address] Consulting Physician Hematology and Oncology 09/14/23 Regina Dorado, RN Nurse Navigator Oncology 03/10/24 Shipping And Receiving Material Handler Relationship Specialty Start Date End Date Jeramie Ching MD [address] [facility] [address] [place] [address] PCP - General 10/25/18 Kristen Urias MD [address], [address] [place] [address] Consulting Physician Oncology 08/19/22 Lukas Duncan MD [address] [place] [address] Consulting Physician Hematology and Oncology 09/14/23 Regina Dorado, RN Nurse Navigator Oncology 03/10/24 Shipping And Receiving Material Handler Relationship Specialty Start Date End Date Jeramie Ching MD [address] [place] [address] PCP - General 10/25/18 Kristen Urias MD [address] [place], [address] [place] [address] Consulting Physician Oncology 08/19/22 Lukas Duncan MD [address] [place] [address] Consulting Physician Hematology and Oncology 09/14/23 Regina Dorado, RN Nurse Navigator Oncology 03/10/24 Shipping And Receiving Material Handler Relationship Specialty Start Date End Date Jeramie Ching MD [address] [facility] [address] [place] [address] PCP - General 10/25/18 Kristen Urias MD [address] [place], [address] [place] [address] Consulting Physician Oncology 08/19/22 Lukas Duncan MD [address] [place] [address] Consulting Physician Hematology and Oncology 09/14/23 Regina Dorado, RN Nurse Navigator Oncology 03/10/24 Shipping And Receiving Material Handler Relationship Specialty Start Date End Date Jeramie Ching MD [address] [place] [address] PCP - General 10/25/18 Kristen Urias MD [address], [address] [place] [address] Consulting Physician Oncology 08/19/22 Lukas Duncan MD [address] [facility] [address] [place] [address] Consulting Physician Hematology and Oncology 09/14/23 Regina Dorado, RN Nurse Navigator Oncology 03/10/24 Shipping And Receiving Material Handler Relationship Specialty Start Date End Date Jeramie Ching MD [facility] [address] [phone] PCP - General 10/25/18 Kristen Urias MD [address] [place], [address] [place] [address] Consulting Physician Oncology 08/19/22 Lukas Duncan MD [address] [place] [address] Consulting Physician Hematology and Oncology 09/14/23 Regina Dorado, RN Nurse Navigator Oncology 03/10/24 Shipping And Receiving Material Handler Relationship Specialty Start Date End Date Jeramie Ching MD [address] [address] PCP - General 10/25/18 Kristen Urias MD [address] [place], [address] [place] [address] Consulting Physician Oncology 08/19/22 Shipping And Receiving Material Handler Relationship Specialty Start Date End Date Jeramie [place]ing [place] [address] [address] PCP - General 10/25/18 Kristen Urias MD [address] [facility], [address] [place] [address] Consulting Physician Oncology 08/19/22 Shipping And Receiving Material Handler Relationship Specialty [place] [address] [place] [phone] PCP - General 10/25/18 Kristen Urias MD [address] [facility], [address] [place], [place] [phone] Consulting Physician Oncology 08/19/22 Shipping And Receiving Material Handler Relationship Specialty Start Date End Date Jeramie Ching MD [address] [place] [phone] PCP - General 10/25/18 Kristen Urias MD [address] [place] [address], [address] [place], [place] [phone] Consulting Physician Oncology 08/19/22 Shipping And Receiving Material Handler Relationship Specialty Start Date End Date Jeramie Ching MD [address] [place] [phone] PCP - General 10/25/18 Kristen Urias MD [address] [place] [address], [address] [place], [place] [phone] Consulting Physician Oncology 08/19/22 Lukas Duncan MD [address] [place] [address] [address] [place], [place] [phone] Consulting Physician Hematology and Oncology 09/14/23 Regina Droado, RN Nurse Navigator Oncology 03/10/24 Shipping And Receiving Material Handler Relationship Specialty Start Date End Date Jeramie Ching MD [address] [place] [address] PCP - General 10/25/18 Kristen Urias MD [address] [place], [address] [place] [address] Consulting Physician Oncology 08/19/22 Lukas Duncan MD [address] [facility] [address] [place] [address] Consulting Physician Hematology and Oncology 09/14/23 Regina Dorado RN Nurse Navigator Oncology 03/10/24 Shipping And Receiving Material Handler Relationship Specialty Start Date End Date Jeramie Ching MD [address] [facility] [address] [place] [address] PCP - General 10/25/18 Kristen Urias MD [address] [place], [address] [place] [address] Consulting Physician Oncology 08/19/22 Lukas Duncan MD [address] [place] [address] Consulting Physician Hematology and Oncology 09/14/23 Regina Dorado, RN Nurse Navigator Oncology 03/10/24 Shipping And Receiving Material Handler Relationship Specialty Start Date End Date Jeramie Ching MD [address] [place] [address] PCP - General 10/25/18 Kristen Urias MD [address], [address] [place] [address] Consulting Physician Oncology 08/19/22 Lukas Duncan MD [address] [place] [address] Consulting Physician Hematology and Oncology 09/14/23 Regina Dorado, RN Nurse Navigator Oncology 03/10/24 Shipping And Receiving Material Handler Relationship Specialty Start Date End Date Jeramie Ching MD [address] [facility] [place] [phone] PCP - General 10/25/18 Kristen Urias MD [address], [address] [place] [address] Consulting Physician Oncology 08/19/22 Lukas Duncan MD [address] [place] [address] Consulting Physician Hematology and Oncology 09/14/23 Regina Dorado, RN Nurse Navigator Oncology 03/10/24 Shipping And Receiving Material Handler Relationship Specialty Start Date End Date Jeramie Ching MD [address] [facility] [place] [address] PCP - General 10/25/18 Kristen Urias MD [address], [address] [place] [address] Consulting Physician Oncology 08/19/22 Lukas Duncan MD [address] [place] [address] Consulting Physician Hematology and Oncology 09/14/23 Regina Dorado, RN Nurse Navigator Oncology 03/10/24 Shipping And Receiving Material Handler Relationship Specialty Start Date End Date Jeramie Ching MD [address] [place] [address] PCP - General 10/25/18 Kristen Urias MD [address] [place], [address] [place] [address] Consulting Physician Oncology 08/19/22 Lukas Duncan MD [address] [place] [address] Consulting Physician Hematology and Oncology 09/14/23 Regina Dorado, RN Nurse Navigator Oncology 03/10/24 Shipping And Receiving Material Handler Relationship Specialty Start Date End Date Jeramie Ching MD [address] [facility] [address] [place] [address] PCP - General 10/25/18 Kristen Urias MD [address] [place], [address] [place] [address] Consulting Physician Oncology 08/19/22 Lukas Duncan MD [address] [place] [address] Consulting Physician Hematology and Oncology 09/14/23 Regina Dorado, RN Nurse Navigator Oncology 03/10/24 Shipping And Receiving Material Handler Relationship Specialty Start Date End Date Jeramie Ching MD [address] [place] [phone] PCP - General 10/25/18 Kristen Urias MD [address] [place], [address] [place] [address] Consulting Physician Oncology 08/19/22 Lukas Duncan MD [address] [facility] [address] [place], [place] [phone] Consulting Physician Hematology and Oncology 09/14/23 Regina Dorado, RN Nurse Navigator Oncology 03/10/24 Jose Still MD [address] [place] [address] Consulting Physician Endocrinology, Diabetes, & Metabolism 05/09/25 Shipping And Receiving Material Handler Relationship Specialty Start Date End Date Jeramie Ching MD [address] [place] [address] [place] [phone] PCP - General 10/25/18 Kristen Urias MD [address] [place], [address] [place] [phone] Consulting Physician Oncology 08/19/22 Lukas Duncan MD [address] [facility] [address] [place], [place] [phone] Consulting Physician Hematology and Oncology 09/14/23 Regina Dorado, RN Nurse Navigator Oncology 03/10/24 Jose Still MD [address] [place] [address] Consulting Physician Endocrinology, Diabetes, & Metabolism 05/09/25 Shipping And Receiving Material Handler Relationship Specialty Start Date End Date Jeramie Ching MD PCP - General 10/25/18 Kristen Urias MD [address] [facility] [place], [address] [place] [address] Consulting Physician Oncology 08/19/22 Lukas Duncan MD [address] [facility] [address] [place] [address] Consulting Physician Hematology and Oncology 09/14/23 Regina Dorado, RN Nurse Navigator Oncology 03/10/24 Jose Still MD [address] [place], [place] [address] Consulting Physician Endocrinology, Diabetes, & Metabolism 05/09/25 Shipping And Receiving Material Handler Relationship Specialty Start Date End Date Jeramie Ching MD [address] [place] [address] [address] [place] [address] PCP - General 10/25/18 Kristen Urias MD [address] [facility] [address] [place] [address] Consulting Physician Oncology 08/19/22 Lukas Duncan MD [address] [facility] [address] [place] [address] Consulting Physician Hematology and Oncology 09/14/23 Regina Dorado, RN Nurse Navigator Oncology 03/10/24 Jose Still MD [address] [facility] [place] [phone] Consulting Physician Endocrinology, Diabetes, & Metabolism 05/09/25 Shipping And Receiving Material Handler Relationship Specialty Start Date End Date Jeramie Ching MD [address] [facility] [address] [place] [address] PCP - General 10/25/18 Kristen Urias MD [address] [facility] [address] [place], [place] [phone] Consulting Physician Oncology 08/19/22 Lukas Duncan MD [address] [facility] [address] [place], [place] [id number] Consulting Physician Hematology and Oncology 09/14/23 Regina Dorado, RN Nurse Navigator Oncology 03/10/24 Jose Still MD [address] [place] [place], [place] [address] Consulting Physician Endocrinology, Diabetes, & Metabolism 05/09/25 Shipping And Receiving Material Handler Relationship Specialty Start Date End Date Jeramie Ching MD [address] [facility] [address] [place] [address] PCP - General 10/25/18 Kristen Urias MD [address] 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 [address] [place] [address] PCP - General 10/25/18 Kristen Urias MD [address] [facility] [address] [place], [place] [phone] Consulting Physician Oncology 08/19/22 Lukas Duncan MD [address] [facility] [address] [place], [place] [phone] Consulting Physician Hematology and Oncology 09/14/23 Regina Dorado, RN Nurse Navigator Oncology 03/10/24 Jose Still MD [address] [place] [address] Consulting Physician Endocrinology, Diabetes, & Metabolism 05/09/25 Scheduled Active and Recently Administ ered Medications (unrecognized section and content) Medication Order 06/22/2024 06/23/2024 06/24/2024 ascorbic acid (Vitamin C) tablet 500 mg 500 mg, Oral, Daily, First dose on Wed06/21/24 at 1215 0939 (Given - Provider: Alisia Manzano RN) 0807 (Given - Provider: Db Dowling, JORGE) 0933 (Given - Provider: Alisia Manzano RN) aspirin EC tablet 81 mg 81 mg, Oral, Daily, First dose on Wed06/20/24 at 1335, Do not crush, chew, or split. 2258 (Given - Provider: Jannie Rogel LPN) 2215 (Given - Provider: Jannie Rogel LPN) atorvastatin (Lipitor) tablet 20 mg 20 mg, Oral, Nightly, First dose on Wed06/20/24 at 2100, Substituted for simvastatin (Zocor). 2258 (Given - Provider: Jannie Rogel LPN) 2215 (Given - Provider: Jannie Rogel LPN) Calcium Carb-Cholecalciferol 500-5 MG-MCG per tablet 1 tablet 1 tablet, Oral, Daily, First dose on Wed06/20/24 at 1335 0939 (Given - Provider: Alisia Manzano RN) 0807 (Given - Provider: Db Dowling, JORGE) 0933 (Given - Provider: Alisia Manzano RN) carvedilol (Coreg) tablet 3.125 mg 3.125 mg, Oral, 2 times daily with meals, First dose on Wed06/20/24 at 1700 0938 (Given - Provider: Alisia Manzano, JORGE)1736 (Given - Provider: Alisia Manzano, RN) 0807 (Given - Provider: Db Dowling, JORGE)1714 (Given - Provider: Db Dowling, JORGE) 0933 (Given - Provider: Alisia Manzano RN) cholecalciferol (Vitamin D-3) tablet 5,000 Units 5,000 Units, Oral, Daily, First dose on Wed06/20/24 at 1335 0938 (Given - Provider: Alisia Manzano RN) 0807 (Given - Provider: Db Dowling RN) 0932 (Given - Provider: Alisia Manzano RN) collagenase 250 UNIT/GM ointment Topical, Daily, First dose on Wed06/21/24 at 1500, Apply nickel thick to right and left buttock then apply saline moist gauze and adhesive bordered foam dressing . Change daily . 0939 (Given - Provider: Alisia Manzano RN) 0900 (Canceled Entry - Provider: Automatic Discharge Provider - Comment: Automatically canceled at discontinue of medication order) 0933 (Given - Provider: Alisia Manzano RN) enoxaparin (Lovenox) syringe 40 mg 40 mg, SubCUTAneous, Every 24 hours scheduled (Daily), First dose on Wed06/20/24 at 1335, Indication of Use: Prophylaxis-DVT/PE, Indications: Prophylaxis of Venous Thromboembolism 0938 (Given - Provider: Alisia Manzano RN) 0809 (Given - Provider: Db Dowling RN) 0932 (Given - Provider: Alisia Manzano RN) enzalutamide (Xtandi) chemo capsule 160 mg 160 mg, Oral, Nightly, First dose (after last modification) on Wed06/20/24 at 2100, Patient supplied medication Verified by pharmacy, 06-20-24, Guille Cortez [facility] HAZARDOUS - Handle with care 2257 (Given - Provider: Jannie Rogel LPN) 2214 (Given - Provider: Jannie Rogel LPN) lisinopril tablet 10 mg 10 mg, Oral, Daily, First dose on Wed06/20/24 at 1335 0939 (Given - Provider: Alisia Manzano RN) 0807 (Given - Provider: Db Dowling RN) 0933 (Given - Provider: Alisia Manzano RN) tamsulosin (Flomax) 24 hr capsule 0.4 mg 0.4 mg, Oral, 2 times daily, First dose (after last modification) on Wed06/21/24 at 2100, Do not crush, chew, or split. 0939 (Given - Provider: Alisia Manzano RN)2258 (Given - Provider: Jannie Rogel LPN) 0807 (Given - Provider: Db Dowling RN)2215 (Given - Provider: Jannie Rogel LPN) 0933 (Given - Provider: Alisia Manzano, JORGE) zinc sulfate (Zincate) capsule 50 mg of elemental zinc 50 mg of elemental zinc, Oral, Daily, First dose on Wed06/21/24 at 1215 0939 (Given - Provider: Alisia Manzano RN) 0807 (Given - Provider: Db Dowling RN) 0932 (Given - Provider: Alisia Manzano RN) PRN Medication Order 06/22/2024 06/23/2024 06/24/2024 acetaminophen (Tylenol) suppository 650 mg(Linked Group 1) 650 mg, Rectal, Every 6 hours PRN, mild pain (1-3), fever, For temp greater than 100.4 F (38 C), Starting on Wed06/20/24 at 1332, Administer if oral route cannot be used. Maximum dose of acetaminophen is 4000 mg from all sources in 24 hours. acetaminophen (Tylenol) tablet 650 mg(Linked Group 1) 650 mg, Oral, Every 6 hours PRN, mild pain (1-3), fever, For temp greater than 100.4 F (38 C), Starting on Wed06/20/24 at 1332, Maximum dose of acetaminophen is 4000 mg from all sources in 24 hours. albuterol 108 (90 Base) MCG/ACT inhaler 2 puff 2 puff, Inhalation, Every 4 hours PRN, wheezing, shortness of breath, Starting on Wed06/20/24 at 1330 benzonatate (Tessalon) capsule 100 mg 100 mg, Oral, 3 times daily PRN, cough, Starting on Wed06/20/24 at 1330, Do not crush or chew. loperamide (Imodium) capsule 2 mg 2 mg, Oral, 4 times daily PRN, diarrhea, Starting on Wed06/20/24 at 1334, After each loose stool ondansetron (Zofran) injection 4 mg(Linked Group 2) 4 mg, IntraVENous, Every 6 hours PRN, nausea, vomiting, Starting on Wed06/20/24 at 1332, 1st Line. Give IV if patient is unable to take orally. If inadequate response within 60 minutes, proceed to next-line agent or contact provider if no further options ordered. ondansetron ODT (Zofran-ODT) disintegrating tablet 4 mg(Linked Group 2) 4 mg, Oral, Every 8 hours PRN, nausea, vomiting, Starting on Wed06/20/24 at 1332, 1st Line. If inadequate response within 60 minutes, proceed to next-line agent or contact provider if no further options ordered. Patient should allow tablet to dissolve on tongue. Do not remove from blister pack until just before administering. polyethylene glycol (PEG) 3350 (Miralax) packet 17 g 17 g, Oral, Daily PRN, constipation, Starting on Wed06/20/24 at 1332, 1st line for treatment of constipation - give scheduled if no bowel movement in past 24 hours. Linked Groups Order Group 1: acetaminophen (Tylenol) tablet 650 mgJump to med 650 mg, Oral, Every 6 hours PRN, mild pain (1-3), fever, For temp greater than 100.4 F (38 C), Starting on Wed06/20/24 at 1332, Maximum dose of acetaminophen is 4000 mg from all sources in 24 hours. Or acetaminophen (Tylenol) suppository 650 mgJump to med 650 mg, Rectal, Every 6 hours PRN, mild pain (1-3), fever, For temp greater than 100.4 F (38 C), Starting on Wed06/20/24 at 1332, Administer if oral route cannot be used. Maximum dose of acetaminophen is 4000 mg from all sources in 24 hours. Group 2: ondansetron ODT (Zofran-ODT) disintegrating tablet 4 mgJump to med 4 mg, Oral, Every 8 hours PRN, nausea, vomiting, Starting on Wed06/20/24 at 1332, 1st Line. If inadequate response within 60 minutes, proceed to next-line agent or contact provider if no further options ordered. Patient should allow tablet to dissolve on tongue. Do not remove from blister pack until just before administering. Or ondansetron (Zofran) injection 4 mgJump to med 4 mg, IntraVENous, Every 6 hours PRN, nausea, vomiting, Starting on Wed06/20/24 at 1332, 1st Line. Give IV if patient is unable to take orally. If inadequate response within 60 minutes, proceed to next-line agent or contact provider if no further options ordered. FOR RECORDS PERTAINING TO PATIENTS WHO ARE OR HAVE BEEN ENROLLED IN A CHEMICAL DEPENDENCY/SUBSTANCEABUSE PROGRAM, SOME INFORMATION MAY BE OMITTED. This clinical summary was aggregated from multiple sources. Caution should be exercised in using it in the provision of clinical care. This summary normalizes information from multiple sources, and as a consequence, information in this document may materially change the coding, format and clinical context of patient data. In addition, data may be omitted in some cases. CLINICAL DECISIONS SHOULD BE BASED ON THE PRIMARY CLINICAL RECORDS. [facility] [employer] [facility]. provides no warranty or guarantee of the accuracy or completeness of information in this document.
[2025-08-15] MEDS: 0.9% Normal Saline (1000mL) 1,000 ML 999 ML IV (22:34)
[2025-08-15 22:42] LABS: Color, Urine Red (Yellow); Glucose, Dipstick Normal (Normal); Ketone-Dipstick Negative (Negative); Leukocyte Esterase-Dipstick 100 /ul (Negative); Nitrite-Dipstick Negative (Negative); Occult Blood-Urine 250 /ul (Negative); Protein-Dipstick 100 mg/dl (Negative); Specific Gravity, Urine 1.015 (1.002-1.030); Urine Bilirubin Dipstick Negative (Negative)
[2025-08-15 22:45] VITALS: BP 132/76; PULSE 80; RESP 14; O2SAT 95
[2025-08-15 22:48] LABS: Anion Gap 10 (5-15); BUN 17 mg/dL (4-19); BUN/Creat Ratio 26.4 RATIO (10-20); Calcium,Total 8.9 mg/dL (7.6-11.0); Carbon Dioxide 27.4 mmol/L (21.0-32.0); Chloride 105 mmol/L (98-108); Estimated Creatinine Clearance 79.65 ml/min (50-250); Glucose 140 mg/dL (70-99); Potassium 3.7 mmol/L (3.3-5.1)
[2025-08-15 23:07] LABS: Red Blood Cells-Urine > 100 SEEN /hpf (0-5)
[2025-08-15 23:08] LABS: Triple Phosphate Crystals Ur 1+ /hpf (<or=1+)
[2025-08-15 23:42] VITALS: BP 160/70; PULSE 80; RESP 14; TEMP 37; O2SAT 100
== END 2025-08-16 00:02 | disposition home or self-care (01) ==
PROVIDERS: Emergency Medicine; Emergency Provider Surgery; PCP Family Medicine; Visit Provider Surgery
DX: R31.0 Gross hematuria (principal); N39.0 Urinary tract infection, site not specified; Z92.21 Personal history of antineoplastic chemotherapy; I25.10 Atherosclerotic heart disease of native coronary artery without angina pectoris; E78.5 Hyperlipidemia, unspecified; I10 Essential (primary) hypertension; Z87.891 Personal history of nicotine dependence; Z85.46 Personal history of malignant neoplasm of prostate; Z79.82 Long term (current) use of aspirin; Z79.899 Other long term (current) drug therapy; Z96.652 Presence of left artificial knee joint; Z95.5 Presence of coronary angioplasty implant and graft; N13.2 Hydronephrosis with renal and ureteral calculous obstruction
CPT/HCPCS: 51702; 74176; 80048; 81001; 85025; 87077; 87086; 87088; 87186; 96361; 96374; 96375; 99284; A4216; J2405

== ENCOUNTER 2025-08-17 16:30 | Emergency (ER) | payer MEDICARE, SELFPAY ==
[2025-08-17 16:31] VITALS: BP 154/88; PULSE 95; RESP 16; TEMP 36.6; O2SAT 99; BMI 28.5
[2025-08-17] MEDS: Lidocaine Jelly 2% 20 ML Syringe (URO-JET) 10 APPLIC TOPICAL (17:00)
--- NOTE | 2025-08-17 17:15 | EX.ED.DYSGE1 ---
HPI History of Present Illness Chief Complaint: Complaint Detail of Chief Complaint: Blister on the side of my penis Informant: patient Onset/Context/Timing Onset: Yesterday Context: Sudden Onset Timing: Continuous Quality: Pain and swelling Location: Penis Current Severity: Severe Maximum Severity: Severe Worsened by: Patient uncircumcised, foreskin was not retracted after placement of Freitas Relieved by: Not applicable Associated Symptoms Associated Symptoms: Problems with Freitas Narrative Narrative: Patient is an 85-year-old male. He was seen on August 15 for urinary retention and hematuria. Patient has history of prostate cancer on oral chemotherapy. He is followed by Dr. Hussein. He presented for hematuria and dysuria per ED note for visit. Review of physical exam reveals patient had no penile tenderness or discharge. Apparently there was dried blood noted at the meatus. There is no testicular pain or swelling. There was a comment the patient was circumcised. Patient states he has urine leaking around the three-way Freitas that was placed. He believes he has a blister on the right side of his penis predominately dorsal side. Prior similar symptoms: No Recent Illness/Hospitalization: Yes [facility], [facility] Medical History Coronary artery disease Hyperlipidemia, unspecified Essential (primary) hypertension Burkitt lymphoma Prostate cancer Dehydration Antibiotic-associated diarrhea Stage III pressure ulcer of sacral region Weakness Debility Home Medications ?Medication ?Instructions ?Recorded ?Last Taken ?Type ascorbic acid (vitamin C) 500 mg 500 mg PO DAILY Supplement 06/24/24 06/24/24 09:30 History capsule aspirin 81 mg capsule 81 mg PO DAILY Heart 06/24/24 06/23/24 22:15 History calcium 500 mg (as 1 tab PO DAILY supplement 06/24/24 06/24/24 09:30 History carbonate)-vitamin D3 5 mcg (200 unit) tablet (Oyster Shell Calcium-Vitamin D3) carvedilol 3.125 mg tablet 3.125 mg PO BID BP 06/24/24 07/06/24 History cholecalciferol (vitamin D3) 125 125 mcg PO DAILY SUPPLEMENT 06/24/24 Unknown History mcg (5,000 unit) capsule enzalutamide 40 mg capsule (Xtandi) 160 mg PO QHS Cancer 06/24/24 06/23/24 22:15 History lisinopril 10 mg tablet 10 mg PO DAILY BP 06/24/24 07/06/24 History simvastatin 20 mg tablet 20 mg PO QPM Cholesterol 06/24/24 Unknown History zinc sulfate 50 mg zinc (220 mg) 50 mg PO DAILY Supplement 06/24/24 06/24/24 09:35 History capsule (Orazinc) tamsulosin 0.4 mg capsule 0.4 mg PO 4X/DAY 07/06/24 Unknown History levofloxacin 750 mg tablet 750 mg PO DAILY 7 days #7 tabs 08/15/25 Unknown Rx ondansetron 4 mg disintegrating 4 mg PO Q8H PRN PRN Nausea #10 tabs 08/15/25 Unknown Rx tablet Allergy/AdvReac Type Severity Reaction Status Date / Time amoxicillin Allergy Intermediate Diarrhea Verified 08/17/25 16:32 Family History Father , at 77. Colon cancer Surgical History History of total left knee replacement History of tonsillectomy and adenoidectomy History of arteriovenous graft History of cataract surgery History of coronary artery stent placement History of colonoscopy History of bone graft History of back surgery Social History household members: spouse Smoking Status: Former smoker alcohol intake: current details: Glass of wine per week. substance use type: does not use ROS ROS ED Constitutional Constitutional ED: Denies chills, fever(s), subjective or sweats Gastrointestinal Gastrointestinal: Denies abdominal pain, melena, nausea or vomiting Genitourinary Genitourinary ED: Reports other Details: Indwelling Freitas, three-way. Musculoskeletal Musculoskeletal: Denies arthralgias or myalgias EXAM Physical Exam Const Vital Signs: 08/17/25 16:31 Temperature 98 F Temperature Source Oral Pulse Rate 95 Respiratory Rate 16 Blood Pressure 154/88 H Blood Pressure Mean 110 Pulse Ox 99 Oxygen Delivery Method Room Air Positive well nourished and well developed General Appearance ED: well developed and NAD HEENT HEENT Narrative: HEENT is grossly unremarkable. Eyes PERRL and EOMs intact bilaterally General Eye ED: Negative for scleral icterus Chest Wall inspection of chest normal Resp normal respiratory effort Cardio regular rate and regular rhythm GI normal to inspection, nondistended, normoactive bowel sounds, non-tender, non-distended and no masses; Negative for hepatosplenomegaly Narrative: Patient has a paraphimosis with significant swelling of the glans penis. Testes descended bilaterally. No testicular or epididymal tenderness. Extremity normal to inspection Neuro oriented x3 and CN's II-XII intact bilaterally Sensorium / Orientation: alert MDM MDM MDM Narrative Medical decision making narrative: Patient states he has never been circumcised. Patient's findings are consistent with a paraphimosis. Lidocaine gel was placed over the shaft of the penis and glans of the penis. After 5 minutes pressure was applied, handshake technique, this was performed for approximately 20 minutes. The foreskin was retracted over the glans. Will observe to see if patient has any more leakage of urine around the Freitas. At this point we will not remove the Freitas because there is still swelling. Urine culture from the was positive for Proteus. It was sensitive to everything except nitrofurantoin and ampicillin. Patient was prescribed levofloxacin. Treatment and Re-Evaluation :: Patient still has urine leaking around the Freitas. Will have nurse change. Will have her put a smaller Freitas in place. Comments:: Patient was reassessed at 1842. He has no leakage around the Freitas since the Freitas was changed. Patient be discharged to home. Discharge Plan Triage Chief Complaint: Complaint ED Provider: Mo Lozano Dx/Rx/DC Orders Clinical Impression: Paraphimosis, Prostate cancer, Hematuria, Acute UTI Instructions: ED Paraphimosis, Surgically Treated Prescriptions: No Action calcium carbonate-vitamin D3 [Oyster Shell Calcium-Vit D3] 500 mg-5 mcg (200 unit) tablet 1 tab PO DAILY carvedilol 3.125 mg tablet 3.125 mg PO BID cholecalciferol (vitamin D3) 125 mcg (5,000 unit) capsule 125 mcg PO DAILY lisinopril 10 mg tablet 10 mg PO DAILY simvastatin 20 mg tablet 20 mg PO QPM Xtandi 40 mg capsule 160 mg PO QHS zinc sulfate [Orazinc] 50 mg zinc (220 mg) capsule 50 mg PO DAILY ascorbic acid (vitamin C) 500 mg capsule 500 mg PO DAILY aspirin 81 mg capsule 81 mg PO DAILY tamsulosin 0.4 mg Capsule 0.4 mg PO 4X/DAY ondansetron 4 mg tablet,disintegrating 4 mg PO Q8H PRN PRN (Reason: Nausea) Qty: 10 0RF levofloxacin 750 mg tablet 750 mg PO DAILY 7 Days Qty: 7 0RF Primary Care Provider: Jeramie Cervantes Referrals: Jeramie Cervantes MD [Primary Care Provider, Family Practice] - As Needed Print Language: Lithuanian Disposition Disposition: Home, Self Care
--- OUTSIDE RECORDS SUMMARY | 2025-08-17 17:27 | XMS RPT_ITS | CCD ---
Author Organization [facility] Care Team Providers Care Dictaphone Technician Name Role Phone MARIAELENAJUANJO MCGARRY Unavailable Unavailable JERAMIE CHING Unavailable Unavailable Jeramie Ching Primary Care Provider [phone] Jeramie Ching Primary Care Provider Jeramie Ching Primary Care Provider Jeramie Ching Primary Care Provider Jeramie Ching MD Primary Care Provider Jeramie Ching MD Primary Care Provider Jeramie Ching MD Primary Care Provider Jeramie Ching MD Primary Care Provider Jeramie Ching Primary Care Provider PROVIDER, UNKNOWN Referring Unavailable Jeramie Ching Primary Care Unavailable ADONAY, KRISTEN Attending Unavailable PROVIDER, UNKNOWN Referring Unavailable Jeramie Ching Primary Care Unavailable KRISTEN URIAS Attending Unavailable Jeramie Ching Primary Care Unavailable ADONAY, KRISTEN Attending Unavailable PROVIDER, UNKNOWN Referring Unavailable PROVIDER, UNKNOWN Referring Unavailable Jeramie Ching Primary Care Unavailable KRISTEN URIAS Attending Unavailable Jeramie Ching MD Primary Care Provider Kristen Urias MD Unavailable Jeramie Ching MD Primary Care Provider Kristen Urias MD A Unavailable Jeramie Ching MD Primary Care Provider Dakota Chavez MD, Greg Unavailable Jeramie Ching MD Primary Care Provider Estrada PATEL [facility] Unavailable Unavailable Dakota V, MD, Lukas Unavailable Jose Still MD Unavailable Jeramie Ching MD Primary Care Provider Jose Still MD Unavailable Jeramie Ching MD Primary Care Provider ADONAY, KRISTEN Attending Unavailable [place], [place] Primary Care Unavailable ADONAY, KRISTEN Attending Unavailable ARMAO, [place] Primary Care Unavailable ADONAY, KRISTEN Attending Unavailable [place], [place] Primary Care Unavailable ADONAY, KRISTEN Attending Unavailable ADONAY, KRISTEN Referring Unavailable [place], [place] Primary Care Unavailable ADONAY, KRISTEN Admitting Unavailable ADONAY, KRISTEN Attending Unavailable [place], [place] Primary Care Unavailable ADONAY, KRISTEN Referring Unavailable ADONAY, KRISTEN Attending Unavailable ADONAY, KRISTEN Referring Unavailable [place], [place] Primary Care Unavailable ADONAY, KRISTEN Attending Unavailable ADONAY, KRISTEN Referring Unavailable [place], [place] Primary Care Unavailable ADONAY, KRISTEN Attending Unavailable ADONAY, KRISTEN Referring Unavailable [place], [place] Primary Care Unavailable [place], [place] Attending Unavailable [place], [place] Primary Care Unavailable ADONAY, KRISTEN Attending Unavailable [place], [place] Primary Care Unavailable ADONAY, KRISTEN Attending Unavailable ADONAY, KRISTEN Referring Unavailable [facility], [place] Primary Care Unavailable ADONAY, KRISTEN Attending Unavailable [place], [place] Primary Care Unavailable [facility], [place] Attending Unavailable [place], [place] Primary Care Unavailable [facility], [place] Attending Unavailable [place], [place] Primary Care Unavailable ADONAY, KRISTEN Attending Unavailable [facility], [place] Primary Care Unavailable ADONAY, KRISTEN Attending Unavailable [facility], [place] Primary Care Unavailable Hossein Dunbar Attending Unavailabl e Arm, As[place] Primary Care Unavailable Allergies Allergy Classification Reported Allergen(s) Allergy Type Date of Onset Reaction(s) Facility Unclassified (7 sources) Seasonal allergy Propensity to adverse reactions to substance 1 [facility] (20 sources) beta Sitosterol / ZINC CITRATE Drug Allergy [address] [facility] (1 source) Amoxicillin Drug Allergy 5 [facility] Repository Medications Current Medications Medication Drug Class(es) Dates Sig (Normalized) Sig (Original) abiraterone acetate 250 mg oral tablet (20 sources) Cytochrome P450 17A1 Inhibitor Start: 03-05-2025 End: 09-04-2025 take 4 tablets by mouth once daily [...] on above: Take 1 tablet by mike once daily. 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 1 ml diphenhydrAMINE [...] Post-op Start: 07-05-2019 take 2 capsules by m outh twice daily as needed for pain docusate [...] supplied medication Verified by pharmacy, 06-20-24, Guille Coretz [facility] HAZARDOUS - Handle with care Start: 12-11-2021 [...] injection 0.25 mg (1 source) Start: 07-05-20 19 HYDROmorphone (DILAUDID) injection 0.25 mg levoFLOXacin 500 mg oral tablet (2 sources) Quinolone Antimicrobial Start: 10-19-20 19 levofloxacin (LEVAQUIN) 500 MG tablet Indications: Elevated PSA Take 1 hour before procedure 1 tablet 0 10/19/2019 Active lisinopril 10 mg oral tablet (20 sources) Angiotensin Converting Enzyme Inhibitor Start: 07-21-20 End: 10-03-20 24 take 1 tablet by [...] EVERY 6 HOURS PRN, Nausea, Vomiting, Starting Wed07/05/19 at 1119, Post-op polyethylene glycol 3350 72856 mg powder for oral solution (8 sources) Osmotic Laxative Start: End: 4 take 17 g by mouth [...] MG tablet Indications: 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 tamsulosin hydrochloride 0.4 mg oral capsule (20 sources) alpha-Adrenergic Seferino Start: 08-18-2024 End: 08-15-2025 take 1 capsule by mouth every twenty-four hours in the morning tamsulosin (Flomax) 0.4 MG 24 hr capsule Indications: Elevated prostate specific antigen (PSA) TAKE 1 CAPSULE (0.4 MG) BY MOUTH IN THE MORNING AND 1 CAPSULE (0.4 MG) IN THE EVENING. 180 capsule 3 08/15/2025 Active Start: 06-20-2024 End: 06-21-2024 take 0.4 [...] needed. 0 12/02/2021 09/24/2022 Discontinued (Therapy completed) [id number] 200 actuat albuterol 0.09 mg/actuat metered dose [...] 0 07/05/2019 Active take 1 tablet by once daily aspirin 81 MG tablet Take [...] chronic] 05-31-2024 Episodic Chronic ulcer of skin (2 sources) Pressure ulcer of right buttock, stage 3; Translations: [Pressure ulcer, buttock] 06-21-2024 Chronic Coronary atherosclerosis and other heart disease (20 sources) Coronary arteriosclerosis in rampart artery; Translations: [Coronary arteriosclerosis] Onset: 07-18-2018 07-18-2018 [...] I, BMI 30-34.9] Onset: 05-10-2018 05-10-2018 Other screening for suspected conditions (not mental disorders or infectious disease) (20 sources) Raised prostate specific antigen; Translations: [Elevated prostate specific antigen [PSA]] Onset: 08-05-2019 08-05-2019 Episodic Other skin disorders (4 sources) Ingrowing great [...] syndrome; Translations: [Adult failure to thrive] Onset: 06-20-2024 06-21-2024 Episodic Results Test Name Value Interpretation Reference Range Facil molina Urine Cultureon 08-17-2025 [facility]RC Proteus hauseri Leigh Count >100,000 Proteus hauseri: REACTION Ampicillin Islt NOLA >=32 Ampicillin+Sulbac Islt NOLA <=2 S Cefepime Islt NOLA <=0.12 S cefTRIAXone Islt NOLA <=0.25 S Ciprofloxacin Islt NOLA <=0.06 S Gentamicin Islt NOLA <=1 S levoFLOXacin Islt NOLA <=0.12 S Meropenem Islt NOLA <=0.25 S Nitrofurantoin Islt NOLA 128 R Pip+Tazo Islt NOLA <=4 S TMP SMX Islt NOLA <=20 S Normal [facility] Comment on above: Performed By: #### M 100.2200 #### [facility] [address], [place], [address] Abdomen/Pelvis without Conto n 08-15-2025 Abdomen/Pelvis without Cont [facility] [address] [place], [place] [address] Abdomen/Pelvis without Cont MR#: [id number] Acct: [id number] Name: IZABELA LONDON Rep #: [id number] : 1940 M 85 From: Christopher Akbar MD PCP: Dr. Jeramie Ching MD Status: REG ER Study: Abdomen/Pelvis without Cont Date of Exam: 07/26 12/19 Exam# [id number] Ordering Dr: Hossein Dunbar DO PROCEDURE: ABDOMEN/PELVIS WITHOUT CONT 08/15/2025 REASON FOR EXAM: HEMATURIA, KNOWN PROSTATE CANCER TECHNIQUE: Procedure Code: CTABDPEL Modality: CT Procedure: ABDOMEN/PELVIS WITHOUT CONT Noncontrast technique limits evaluation of the abdominal and pelvic viscera. Coronal and Sagittal reconstruction series were provided. One or more dose reduction techniques were used (e.g., Automated exposure control, adjustment of the mA and/or kV according to patient size, use of iterative reconstruction technique). FINDINGS: Small left pleural effusion. Coronary artery calcifications are present. Bilateral gynecomastia. L4-5 posterior fusion. L3, L4, and L5 laminectomies. Degenerative changes of the non fused levels. Moderate atherosclerosis. No suspicious lymphadenopathy. The liver is unremarkable. The gallbladder, pancreas, spleen, and adrenals unremarkable. Right kidney simple cyst. Left kidney subcentimeter hypodense lesion that is too small to characterize. Right distal ureter 2 mm calculus with moderate upstream hydroureteronephrosis. Additional small bilateral nonobstructive renal calculi. Ill-defined hyperdensity within the the urinary bladder which is suboptimally assessed due to collapsed around a Freitas catheter. This may represent retained contrast if there was recent contrast administration or ill-defined calcifications. Normal caliber large and small bowel without surrounding inflammatory changes. CT/Abdomen/Pelvis without Cont IMPRESSION: Right distal ureteral calculus measuring 2 mm with moderate upstream hydroureteronephrosis. Additional small bilateral nonobstructive renal calculi. Ill-defined hyperdensity in the urinary bladder, possibly retained contrast or calcifications; correlation with urinalysis and recent imaging recommended. Small left pleural effusion. Postoperative changes of lumbar fusion and laminectomies. Moderate atherosclerosis. Reading Location: [address] CC: Dr. Hosseni Dunbar DO; Dr. Jeramie Ching MD Marketing Director Assisted Living: Signed Normal [facility] Basic Metabolic Profile (BMP )on 08-15-2025 BUN/CRE 26.4 RATIO High 10-20 [facility] Comment on above: Performed By: #### L 100.0100, L500.2500 #### [facility] [address] [facility] [address] Calcium [Mass/Vol] 8.9 mg/dL Normal 7.6-11.0 [facility] Comment on above: Performed By: #### L 100.0100, L500.2500 #### [facility] [address] [facility] [address] Chloride [Moles/Vol] 105 mmol/L Normal 98-108 [facility] Comment on above: Performed By: #### L 100.0100, L500.2500 #### [facility] [address] [place], [address] CO2 [Moles/Vol] 27.4 mmol/L Normal 21.0-32.0 [facility] Comment on above: Performed By: #### L 100.0100, L500.2500 #### [facility] [address] [place], [address] Creatinine [Mass/Vol] 0.65 mg/dL Low 0.70-1.20 [facility] Comment on above: Performed By: #### L 100.0100, L500.2500 #### [facility] [address] [place], [address] ECRCL 79.65 ml/min Normal 50-250 [facility] Comment on above: Performed By: #### L 100.0100, L500.2500 #### [facility] [address] [place], [address] GAP 10 Normal 5-15 [facility] Comment on above: Performed By: #### L 100.0100, L500.2500 #### [facility] [address] [place], [address] GFR/1.73 sq M.predicted among non-blacks MDRD (S/P/Bld) [Vol rate/Area] 92 mL/min/{1.73_m2} Normal >60 [facility] Comment on above: Result Comment: mL/m in/1.73m2 CKD-EPI Creatinine Equation (2020) Performed By: #### L 100.0100, L500.2500 #### [facility] [address] [place], [address] Glucose [Mass/Vol] 140 mg/dL High 70-99 [facility] Comment on above: Performed By: #### L 100.0100, L500.2500 #### [facility] [address] [place], [address] Potassium [Moles/Vol] 3.7 mmol/L Normal 3.3-5.1 [facility] Comment on above: Performed By: #### L 100.0100, L500.2500 #### [facility] [address] [place], [address] Sodium [Moles/Vol] 142 mmol/L Normal 133-145 [facility] Comment on above: Performed By: #### L 100.0100, L500.2500 #### [facility] [address] [place], [address] Urea nitrogen [Mass/Vol] 17 mg/dL Normal 4-19 [facility] Comment on above: Performed By: #### L 100.0100, L500.2500 #### [facility] [address] [place], [address] CBC W/Diff, Automatedon 10-2 Absolute Lymph 1.38 X10 3/uL Normal 0.83-4.51 [facility] Comment on above: Performed By: #### L 100.0100, L500.2500 #### [facility] [address] [place], [address] Absolute Neut 13.8 X10 3/uL High 2.0-7.7 [facility] Comment on above: Performed By: #### L 100.0100, L500.2500 #### [facility] [address] [place], [address] Basophils/100 WBC (Bld) 0.3 % Normal 0-1 [facility] Comment on above: Performed By: #### L 100.0100, L500.2500 #### [facility] [address] [place], [address] Eosinophils/100 WBC (Bld) 0.2 % Normal 0-5 [facility] Comment on above: Performed By: #### L 100.0100, L500.2500 #### [facility] [address] [place], [address] Erythrocyte distribution width (RBC) [Ratio] 13.3 % Normal 11.6-14.6 [facility] Comment on above: Performed By: #### L 100.0100, L500.2500 #### [facility] [address] [place], [address] Hematocrit (Bld) [Volume fraction] 42.3 % Normal 40-54 [facility] Comment on above: Performed By: #### L 100.0100, L500.2500 #### [facility] [address] [place], [address] Hemoglobin (Bld) [Mass/Vol] 14.0 g/dL Normal 13.0-16.5 [facility] Comment on above: Performed By: #### L 100.0100, L500.2500 #### [facility] [address] [place], [address] IG% 0.400 Normal 0.0-0.9 [facility] Comment on above: Result Comment: IG% - Immature Granulocytes (promyelocytes, myelocytes and metamyelocytes) > 1% indicates that a LEFT SHIFT is Present. Performed By: #### L 100.0100, L500.2500 #### [facility] [address] [place], [address] Lymphocytes/100 WBC (Bld) 8.5 % Low 19-41 [facility] Comment on above: Performed By: #### L 100.0100, L500.2500 #### [facility] [address] [place], [address] MCH (RBC) [Entitic mass] 33.3 pg High 27.0-32.0 [facility] Comment on above: Performed By: #### L 100.0100, L500.2500 #### [facility] [address] [place], [address] MCHC (RBC) [Mass/Vol] 33.1 g/dL Normal 32-36 [facility] Comment on above: Performed By: #### L 100.0100, L500.2500 #### [facility] [address] [place], [address] MCV (RBC) [Entitic vol] 100.5 fL High 80-94 [facility] Comment on above: Performed By: #### L 100.0100, L500.2500 #### [facility] [address] [place], [address] Monocytes/100 WBC (Bld) 6.0 % Normal 0-10 [facility] Comment on above: Performed By: #### L 100.0100, L500.2500 #### [facility] [address] [place], [address] Neutrophils/100 WBC (Bld) 84.6 % High 47-70 [facility] Comment on above: Performed By: #### L 100.0100, L500.2500 #### [facility] [address] [place], [address] Nucleated RBC (Bld) [#/Vol] 0 10*3/uL Normal 0-5 [facility] Comment on above: Performed By: #### L 100.0100, L500.2500 #### [facility] [address] [place], [address] Platelet mean volume (Bld) [Entitic vol] 10.3 fL Normal 6.2-12.0 [facility] Comment on above: Performed By: #### L 100.0100, L500.2500 #### [facility] [address] [place], [address] Platelets (Bld) [#/Vol] 225 10*3/uL Normal 150-450 [facility] Comment on above: Performed By: #### L 100.0100, L500.2500 #### [facility] [address] [place], [address] RBC (Bld) [#/Vol] 4.21 10*6/uL Low 4.6-6.2 [facility] Comment on above: Performed By: #### L 100.0100, L500.2500 #### [facility] [address] [place], [address] RDW SD 49.1 fl High 35.1-43.9 [facility] Comment on above: Performed By: #### L 100.0100, L500.2500 #### [facility] [address] [place], [address] WBC (Bld) [#/Vol] 16.3 10*3/uL High 4.4-11.0 [facility] Comment on above: Performed By: #### L 100.0100, L500.2500 #### [facility] [address] [place], [address] Emergency Department Summary on 08-15-2025 Emergency Department Summary [facility] Medical Records Department [address] [place] [address] Emergency Department Summary 08/15/25 MR#: [id number] Acct: [id number] Name: IZABELA LONDON Rep #: [id number] : 1940 85 From: Hossein Dunbar DO PCP: Dr. Jeramie Ching MD Status:REG ER Location: ED HPI History of Present Illness Chief Complaint: Complaint Narrative Narrative: Chief complaint and HPI: 85-year-old male with past medical history of prostate cancer on oral chemotherapy, HTN presents for evaluation of hematuria. Patient follows with urology, Dr. Payne. Patient states he developed hematuria earlier this evening which has continued. He endorses dysuria. He states he has some mild right flank pain and is concerned about possible kidney stone as he has a history of. He denies any fever, chills, shortness of breath, chest pain, nausea, vomiting. Review of systems: See HPI Medications: As listed on the chart Allergies: As listed on the chart PFSH: Per chart Vital signs: As listed on the chart. Reviewed. Physical exam: Gen: A O x3, NAD Head: Normocephalic, atraumatic Eyes: No sclera icterus, conjunctiva clear ENT: Moist mucous membranes CV: RRR, no murmurs Resp: Lungs CTA BL, no w/r/c GI: Abd soft, non-distended, non-tender, no r/r/g : No CVA tenderness. Circumcised penis. No penile tenderness or discharge. Patient has dried blood at the penile meatus. No penile or testicular swelling. Normal lie and position of the testicles. No testicular tenderness, masses, or skin changes. No rashes. No palpable hernias. Musc: Full ROM, no deformity Skin: Warm, dry Neuro: Alert, oriented, grossly intact Psych: Cooperative, appropriate mood and affect [facility] Medical History Coronary artery disease Hyperlipidemia, unspecified Essential (primary) hypertension Burkitt lymphoma Prostate cancer Dehydration Antibiotic-associated diarrhea Stage III pressure ulcer of sacral region Weakness Debility Home Medications ???Medication ???Instructions ???Recorded ???Last Taken ???Type ascorbic acid (vitamin C) 500 mg 500 mg PO DAILY Supplement 4 06/24/24 09:30 History capsule aspirin 81 mg capsule 81 mg PO DAILY Heart 06/24/24 08 22:15 History calcium 500 mg (as 1 tab PO DAILY supplement 06/24/24 06/24/24 09:30 History carbonate)-vitamin D3 5 mcg (200 unit) tablet (Oyster Shell Calcium-Vitamin D3) carvedilol 3.125 mg tablet 3.125 mg PO BID BP 06/24/24 History cholecalciferol (vitamin D3) 125 125 mcg PO DAILY SUPPLEMENT Unknown History mcg (5,000 unit) capsule enzalutamide 40 mg capsule (Xtandi) 160 mg PO QHS Cancer 06/24/24 0 06/23/24 22:15 History lisinopril 10 mg tablet 10 mg PO DAILY BP 06/24/24 4 History simvastatin 20 mg tablet 20 mg PO QPM Cholesterol 06/24/24 Unknown History zinc sulfate 50 mg zinc (220 mg) 50 mg PO DAILY Supplement 06/24/24 06/24/24 09:35 History capsule (Orazinc) tamsulosin 0.4 mg capsule 0.4 mg PO 4X/DAY 07/06/24 Unknown History Allergy/AdvReac Type Severity Reaction Status Date / Time amoxicillin Allergy Intermediate Diarrhea Verified 08/15/25 19:49 Family History Father , at 77. Colon [...] week. substance use type: does not use EXAM Physical Exam Const Vital Signs: 08/15/25 19:49 08/15/25 22:00 08/15/25 22:45 Temperature 98 F Temperature Source Oral Pulse Rate 101 H 90 80 Respiratory Rate 16 14 14 Blood Pressure 145/96 H 133/88 H 132/76 H Blood Pressure Mean 112 103 94 Pulse Ox 96 95 95 Oxygen Delivery Method Room Air Room Air Room Air MDM MDM MDM Narrative Medical decision making narrative: 85-year-old male with past medical history of prostate cancer on oral chemotherapy, HTN presents for evaluation of hematuria. Patient follows with urology, Dr. Payne. Patient states he developed hematuria earlier this evening which has continued. He endorses dysuria. He states he has some mild right flank pain. Differential diagnosis includes but is not limited to hematuria, UTI, electrolyte abnormality, JOSHUA, urolithiasis, urinary retention. Pat (more content not included)... Normal [facility] Urinalysis, Completeon 08-15 BACTERIA 4+ /hpf Normal None Seen [facility] Comment on above: Order Comment: COLOR OF URINE MAY AFFECT DIPSTICK RESULTS. WALLPAPER EMBOSSER HELPER TO SPECIFY Performed By: #### L 400.0001 #### [facility] [address] [place], [address] TRIPLE PHOS 1+ /hpf Normal [facility] Comment on above: Order Comment: COLOR OF URINE MAY AFFECT DIPSTICK RESULTS. WALLPAPER EMBOSSER HELPER TO SPECIFY Performed By: #### L 400.0001 #### [facility] [address] [place], [address] RBC > 100 SEEN Normal 0-5 [facility] Comment on above: Order Comment: COLOR OF URINE MAY AFFECT DIPSTICK RESULTS. WALLPAPER EMBOSSER HELPER TO SPECIFY Performed By: #### L 400.0001 #### [facility] [address] [place], [address] WBC 50-100 SEEN Normal [address] [place] [address] Comment on above: Order Comment: COLOR OF URINE MAY AFFECT DIPSTICK RESULTS. WALLPAPER EMBOSSER HELPER TO SPECIFY Performed By: #### L 400.0001 #### [facility] [address] [place], [address] EPI,SQUAMOUS 0 SEEN Normal [address] [place] [address] Comment on above: Order Comment: COLOR OF URINE MAY AFFECT DIPSTICK RESULTS. WALLPAPER EMBOSSER HELPER TO SPECIFY Performed By: #### L 400.0001 #### [facility] [address] [place], [address] Mucus Ql (Urine sed) 0 SEEN Normal [facility] Comment on above: Order Comment: COLOR OF URINE MAY AFFECT DIPSTICK RESULTS. WALLPAPER EMBOSSER HELPER TO SPECIFY Performed By: #### L 400.0001 #### [facility] [address] [place], [address] CBC W Auto Differential pane l (Bld)on 08-02-2025 Basophils (Bld) [#/Vol] 0 10*3/uL 0.0 - 0.2 10*3/uL [employer] Basophils/100 WBC (Bld) 0.3 % 0.0 - 2.0 % [facility] [email or web address] Eosinophils (Bld) [#/Vol] 0.1 10*3/uL 0.0 - 0.5 10*3/uL [facility] Eosinophils/100 WBC (Bld) 1.3 % 0.0 - 6.0 % [facility] Erythrocyte distribution width (RBC) [Ratio] 13.5 % 11.5 - 15.0 % [facility] Hematocrit (Bld) [Volume fraction] 44.6 % 40.0 - 52.0 % [facility] Hemoglobin (Bld) [Mass/Vol] 14.3 g/dL 13.0 - 18.0 g/dL [facility] Immature granulocytes (Bld) [#/Vol] 0.1 10*3/uL High NINF - 0.1 10*3/uL [facility] Immature granulocytes/100 WBC (Bld) 0.5 % 0.0 - 2.0 % [facility] Interpretation and review of laboratory results Abnormal [facility] Lymphocytes (Bld) [#/Vol] 1.4 10*3/uL 1.0 - 4.3 10*3/uL [facility] Lymphocytes/100 WBC (Bld) 12.8 % Low 15.0 - 45.0 % [facility] MCH (RBC) [Entitic mass] 32.7 pg 26.0 - 34.[address] [facility] MCHC (RBC) [Mass/Vol] 32.1 % 30.5 - 36.0 % [facility] MCV (RBC) [Entitic vol] 102.1 fL High 77.0 - 99.[address] [facility] Monocytes (Bld) [#/Vol] 0.8 10*3/uL 0.0 - 0.9 10*3/uL [facility] Monocytes/100 WBC (Bld) 7.4 % 5.0 - 13.0 % [facility] Neutrophils (Bld) [#/Vol] 8.5 10*3/uL High 1.8 - 7.5 10*3/uL [facility] Neutrophils/100 WBC (Bld) 77.7 % 38.0 - 82.0 % [facility] Nucleated RBC/100 WBC (Bld) [Ratio] 0 % [facility] Platelet mean volume (Bld) [Entitic vol] 9.8 fL 9.0 - 12.[address] [facility] Platelets (Bld) [#/Vol] 224 10*3/uL 140 - 440 10*3/uL [facility] RBC (Bld) [#/Vol] 4.37 10*6/uL Low 4.40 - 5.9 0 10*6/uL [facility] WBC (Bld) [#/Vol] 11 10*3/uL High 3.6 - 10.7 10*3/uL [facility] CBC WITH AUTO DIFFERENTIALon 08-02-2025 Basophils (Bld) [#/Vol] 0.0 10*3/uL Normal 0.0-0.2 [facility] Comment on above: Performed By: #### L [id number] ####[facility] Outreach Worker: DEEPALI DOWLING ([phone])[facility])[address] [place] [address] Basophils/100 WBC (Bld) 0.3 % Normal 0.0-2.0 [facility] Comment on above: Performed By: #### L [id number] ####[facility] Health Outreach Worker: DEEPALI DOWLING ([phone])[facility])[address] [place] [address] Eosinophils (Bld) [#/Vol] 0.1 10*3/uL Normal 0.0-0.5 [facility] Comment on above: Performed By: #### L [id number] ####[facility] Health Outreach Worker: DEEPALI DOWLING ([phone])[facility])[address] [place] [address] Eosinophils/100 WBC (Bld) 1.3 % Normal 0.0-6.0 [facility] Comment on above: Performed By: #### L [id number] ####[facility] Outreach Worker: DEEPALI DOWLING ([phone])[facility])[address] [place] [address] Erythrocyte distribution width (RBC) [Ratio] 13.5 % Normal 11.5-15.0 [facility] Comment on above: Performed By: #### L [id number] ####[facility] Outreach Worker: DEEPALI DOWLING ([phone])[facility])[address] [place] [address] Hematocrit (Bld) [Volume fraction] 44.6 % Normal 40.0-52.0 [facility] Comment on above: Performed By: #### L [id number] ####[facility] Outreach Worker: DEEPALI DOWLING ([phone])[facility])[address] [place] [address] Hemoglobin (Bld) [Mass/Vol] 14.3 g/dL Normal 13.0-18.0 [facility] Comment on above: Performed By: #### L [id number] ####[facility] Outreach Worker: DEEPALI DOWLING ([phone])[facility])[address] [place] [address] IMMATURE GRANS % 0.5 % Normal 0.0-2.0 [facility] Comment on above: Performed By: #### L [id number] ####[facility] Health Outreach Worker: DEEPALI DOWLING ([phone])[address] IMMATURE GRANS ABSOLUTE 0.1 10*3/uL High <0.1 [facility] Comment on above: Performed By: #### L [id number] ####Community Health Outreach Worker: DEEPALI DOWLING ([phone])[facility])[address] [place] [address] Lymphocytes (Bld) [#/Vol] 1.4 10*3/uL Normal 1.0-4.3 [facility] Comment on above: Performed By: #### L [id number] ####[facility] Health Outreach Worker: DEEPALI DOWLING ([phone])[facility])[address] [place] [address] Lymphocytes/100 WBC (Bld) 12.8 % Low 15.0-45.0 [facility] Comment on above: Performed By: #### L [id number] ####[facility] Outreach Worker: DEEPALI DOWLING ([phone])[address] MCH (RBC) [Entitic mass] 32.7 pg Normal 26.0-34.0 [facility] Comment on above: Performed By: #### L [id number] ####[facility] Health Outreach Worker: DEEPALI DOWLING ([phone])[facility])[address] [place] [address] MCHC 32.1 % Normal 30.5-36.0 [facility] Comment on above: Performed By: #### L [id number] ####[facility] Health Outreach Worker: DEEPALI DOWLING ([phone])[facility] ([facility])[address] [place] [address] MCV (RBC) [Entitic vol] 102.1 fL High 77.0-99.0 [facility] Comment on above: Performed By: #### L [id number] ####[facility] Health Outreach Worker: DEEPALI DOWLING ([id number])[facility] ([facility])[address] [place] [address] Monocytes (Bld) [#/Vol] 0.8 10*3/uL Normal 0.0-0.9 [facility] Comment on above: Performed By: #### L [id number] ####[facility] Outreach Worker: DEEPALI DOWLING ([phone])[facility] ([facility])[address] [place] [address] Monocytes/100 WBC (Bld) 7.4 % Normal 5.0-13.0 [facility] Comment on above: Performed By: #### L [id number] ####[facility] Outreach Worker: DEEPALI DOWLING ([phone])[facility] ([facility])[address] [place] [address] NEUTROPHILS ABSOLUTE 8.5 10*3/uL High 1.8-7.5 [facility] Comment on above: Performed By: #### L [id number] ####[facility] Health Outreach Worker: DEEPALI DOWLING ([id number])[facility] ([facility])[address] [place] [address] Neutrophils/100 WBC (Bld) 77.7 % Normal 38.0-82.0 [facility] Comment on above: Performed By: #### L [id number] ####[facility] Outreach Worker: DEEPALI DOWLING ([phone])[facility] ([facility])[address] [place] [address] NRBC 0.0 /100 WBCs Normal 0.0-2.0 [facility] Comment on above: Performed By: #### L [id number] ####[facility] Health Outreach Worker: DEEPALI DOWLING ([phone])[facility])[address] [place] [address] Platelet mean volume (Bld) [Entitic vol] 9.8 fL Normal 9.0-12.7 [facility] Comment on above: Performed By: #### L [id number] ####[facility] Outreach Worker: DEEPALI DOWLING ([phone])[facility] ([facility])[address] [place] [address] Platelets (Bld) [#/Vol] 224 10*3/uL Normal 140-440 [facility] Comment on above: Performed By: #### L [id number] ####[facility] Outreach Worker: DEEPALI DOWLING ([id number])[facility])[address] [place] [address] RBC (Bld) [#/Vol] 4.37 10*6/uL Low 4.40-5.90 [facility] Comment on above: Performed By: #### L [id number] ####[facility] Outreach Worker: DEEPALI DOWLING ([phone])[facility])[address] [place] [address] WBC (Bld) [#/Vol] 11.0 10*3/uL High 3.6-10.7 [facility] Comment on above: Performed By: #### L [id number] ####[facility] Outreach Worker: DEEPALI DOWLING ([phone])[facility])[address] [place] [address] COMPREHENSIVE METABOLIC PANE [place] 08-02-2025 Albumin [Mass/Vol] 3.3 g/dL Low 3.4-4.8 [facility] Comment on above: Performed By: #### L [id number] ####[facility] Outreach Worker: DEEPALI DOWLING ([id number])[facility])[address] [place] [address] ALP [Catalytic activity/Vol] 75 U/L Normal 40-150 [facility] Comment on above: Performed By: #### L [id number] ####[facility] Health Outreach Worker: DEEPALI DOWLING ([phone])[facility] ([facility])[address] [place] [address] [place] ALT [Catalytic activity/Vol] 97 U/L High <[address] [facility] Comment on above: Performed By: #### L [id number] ####[facility] Outreach Worker: DEEPALI DOWLING ([phone])[facility] ([facility])[address] [place] [address] Anion gap [Moles/Vol] 8 mmol/L Normal 3-[address] [facility] Comment on above: Performed By: #### L [id number] ####[facility] Outreach Worker: DEEPALI DOWLING ([phone])[facility])[address] [place] [address] AST [Catalytic activity/Vol] 58 U/L High <[address] [facility] Comment on above: Performed By: #### L [id number] ####[facility] Health Outreach Worker: DEEPALI DOWLING ([phone])[facility] ([facility])[address] [place] [address] Bilirubin [Mass/Vol] 1.1 mg/dL Normal <1.2 [facility] Comment on above: Performed By: #### L [id number] ####[facility] Outreach Worker: DEEPALI DOWLING ([phone])[facility] ([facility])[address] [place] [address] Calcium [Mass/Vol] 9.0 mg/dL Normal 8.8-10.[address] [facility] Comment on above: Performed By: #### L [id number] ####[facility] Outreach Worker: DEEPALI DOWLING ([phone])[facility] ([facility])[address] [place] [address] [place] Chloride [Moles/Vol] 108 mmol/L High 98-107 [facility] Comment on above: Performed By: #### L [id number] ####[facility] Outreach Worker: DEEPALI DOWLING ([phone])[facility] ([facility])[address] [place] [address] [place] CO2 [Moles/Vol] 28 mmol/L Normal 23-31 [facility] Comment on above: Performed By: #### L [id number] ####[facility] Health Outreach Worker: DEEPALI DOWLING ([phone])[facility])[address] [place] [address] Creatinine [Mass/Vol] 0.63 mg/dL Low 0.72-1.25 [facility] Comment on above: Performed By: #### L [id number] ####[facility] Health Outreach Worker: DEEPALI DOWLING ([phone])[facility])[address] [place] [address] GLOMERULAR FILTRATION RATE ML/MIN/1.73 SQ M.PREDICTED >90.0 Normal >60.0 [facility] Comment on above: Result Comment: Calc ulation based on the Chronic Kidney Disease Epidemiology Collaboration (CKD-EPI) equation refit without adjustment for race Performed By: #### L [id number] ####[facility] Outreach Worker: DEEPALI DOWLING ([phone])[facility])[address] [place] [address] Glucose [Mass/Vol] 96 mg/dL Normal 82-115 [facility] Comment on above: Performed By: #### L [id number] ####[facility] Outreach Worker: DEEPALI DOWLING ([id number])[facility])[address] [place] [address] Potassium [Moles/Vol] 3.9 mmol/L Normal 3.5-5.1 [facility] Comment on above: Result Comment: Plas ma potassium values may be up to 0.5 mmol/L lower than serum values. Performed By: #### L [id number] ####[facility] Outreach Worker: DEEPALI DOWLING ([phone])[facility])[address] [place] [address] Protein [Mass/Vol] 6.3 g/dL Low 6.4-8.3 [facility] Comment on above: Performed By: #### L [id number] ####[facility] Outreach Worker: DEEPALI DOWLING ([phone])[facility])[address] [place] [address] [place] Sodium [Moles/Vol] 144 mmol/L Normal 136-145 [facility] Comment on above: Performed By: #### L [id number] ####[facility] Outreach Worker: DEEPALI DOWLING ([phone])[facility])[address] [place] [address] Urea nitrogen [Mass/Vol] 15 mg/dL Normal 9-23 [facility] Comment on above: Performed By: #### L [id number] ####[facility] Outreach Worker: DEEPALI DOWLING ([phone])[facility] ([facility])[address] [place] [address] Comprehensive metabolic 1998 panelon 08-02-2025 Albumin [Mass/Vol] 3.3 g/dL Low 3.4 - 4.8 g/dL [facility] ALP [Catalytic activity/Vol] 75 U/L 40 - 150 U/L [facility] ALT [Catalytic activity/Vol] 97 U/L High NINF - 40 U/L [facility] Anion gap [Moles/Vol] 8 mmol/L 3 - 13 mmol/L [facility] AST [Catalytic activity/Vol] 58 U/L High NINF - 34 U/L [facility] Bilirubin [Mass/Vol] 1.1 mg/dL [facility] mg/dL [facility] Calcium [Mass/Vol] 9 mg/dL 8.8 - 10. 0 mg/dL [facility] Chloride [Moles/Vol] 108 mmol/L High 98 - 107 mmol/L [facility] CO2 [Moles/Vol] 28 mmol/L 23 - 31 mmol/L [facility] Creatinine [Mass/Vol] 0.63 mg/dL Low 0.72 - 1.25 mg/dL [facility] GFR/1.73 sq M.predicted (S/P/Bld) [Vol rate/Area] - PINF [facility] Comment on above: Calculation based on the Chronic Kidney Disease Epidemiology Collaboration (CKD-EPI) equation refit without adjustment for race Glucose [Mass/Vol] 96 mg/dL 82 - 115 mg/dL [facility] Interpretation and review of laboratory results Abnormal [facility] Potassium [Moles/Vol] 3.9 mmol/L 3.5 - 5.1 mmol/L [facility] Comment on above: Plasma potassium carissa ues may be up to 0.5 mmol/L lower than serum values. Protein [Mass/Vol] 6.3 g/dL Low 6.4 - 8.3 g/dL [facility] Sodium [Moles/Vol] 144 mmol/L 136 - 145 mmol/L [facility] Urea nitrogen [Mass/Vol] 15 mg/dL 9 - 23 mg/dL [facility] Office Visiton 08-02-2025 Follow-up visit [id number] SuryaIzabela Barrera 1940 M Date Provider Department Center 08/02/2025 [id number] URIAS [facility] ONC None Family History Problem Relation Age of Onset Cancer Father 77 Comments: Colon Family Status - Relation Status Age at Father Level of Service:01368 [place] OFFICE/OUTPATIENT ESTABLISHED MOD MDM 30 MIN Reason for Visit and Comments: Follow-up [971449] Normal [facility] PSA TOTAL AND FREE (BKR QUES T)on 08-02-2025 PSA, % FREE - [facility] 38 % Normal >25 [facility] Comment on above: Result Comment: Estimated (x) PSA(ng/mL) Free PSA(%) Probability of Cancer (as %) 0-2.5 (*) Approx. 1 2.6-4.0 (1) 0-27 (2) 24 (3) 4.1-10 (4) 0-10 56 11-15 28 16-20 20 21-25 16 >or=26 8 >10 (+) N/A >50 References: (1)Erica et al.:Urology 60: 469-474 (2001) (2)Angelesona et al.:J.Urol 168: 922-925 (2001) Free PSA(%) Sensitivity(%) Specificity(%) < or = 25 85 19 < or = 30 93 9 (3)Catalona et al.:LETICIA 277: 8304-1724 (1996) (4)Catalona et al.:LETICIA 279: 1468-0054 (1997) (x) These estimates vary greatly with [...] This test was performed using the Shirin Needham Immunoassay method. Values obtained from different assay methods cannot be used interchangeably. PSA levels, regardless of value, should not be interpreted as absolute evidence of the presence or absence of disease. Test Performed by [employer], [facility], [address] [place] [address] Jake Hahn M.D., Ph.D., Director of Laboratories , CLIA [id number] Performed By: #### L [id number] ####[facility] (mobile mumBEAKER)[address] [place] [address] [facility] PSA, FREE - [facility] 1.95 ng/mL Normal VSS Monitoring [facility] Comment on above: Performed By: #### L [id number] ####[facility] (mobile mumBEAKER)[address] [place] [facility] PSA, TOTAL - [facility] 5.2 ng/mL High <=4.0 [employer] [facility] Comment on above: Performed By: #### L [id number] ####[facility] (mobile mumBEAKER)[address] [place] [facility] Progress Noteon 08-02-2025 Progress Note Patient ID: [...] (L) 08/02/2025 PSA Total (Diagnostic Post-Prostatectomy) Order: [id number] Status: Final result Next appt: None Dx: [...] Performed by: SAC Testing performed on the [employer] using a two-step chemiluminescent microparticle immunoassay method. [...] of 08/02/25 Electronically signed Kristen Urias MD [facility] Progress Note Patient arrived ambulatory with walker [...] and follow-up care. Patient discharged home ambulatory. [facility] Office Visiton 07-03-2025 Follow-up visit [id number] Izabela London 1940 M Date Provider Department Center 07/03/2025 [id number] [facility] M[facility]A GUILLERMO Family History Problem Relation Age of Onset Cancer Father 77 Comments: Colon Family Status - Relation Status Age at Father Level of Service:97279 [place] OFFICE/OUTPATIENT ESTABLISHED LOW [facility] 20 MIN Reason for Visit and Comments: Toe Pain [222002] - Right [facility] Progress Noteon 07-03-2025 Progress Note Flu shot Patient was offered the flu vaccination at their visit today and Patient accepted. PCP Notified. Immunizations Given Immunizations never marked as reviewed Influenza, adjuvanted, trivalent, preservative-free [last edited by Jessy King MA on 07/03/2025 1157] Given by: Jessy King MA Date: 07/03/2025 Dose: 0.5 mL Site: Left arm Route: Intramuscular [facility]: [id number] CVX code: 168 VIS Publish Date: 11/24/2024 Product: [employer]ad Field Technical Assistant: Seqjohn paul Lot number: [id number] Expiration date: 03/24/2026 Questionnaire Question Answer VIS Presented Date 07/03/2025 [facility] Progress Note [facility] [place] [address] [facility] [address] [facility] [id number] Izabela London is a 85 y.o. male [...] to potential absorption interference - Referral to laborer pullet farm recommended - Patient advised to drink plenty of water and report any fever, chills, or worsening symptoms - Follow-up with laborer pullet farm to be scheduled Other Clinical Considerations: - Flu Vaccine: - Flu vaccine to be administered during this visit - Medication Management: - Patient to peanut picker new antibiotic prescription at [facility] pharmacy on [address] in [place] - Fall Prevention: - Patient uses [employer] when going out - No recent falls reported - Payroll Master Referral: - Exploring options for laborer pullet farm closer to patient's home in [place] - Considering options in [facility], or [place] - Preference for provider accepting [facility] Izabela was seen today for toe pain. [...] lie down for 30 minutes after - [facility]; Future Flu vaccine today Don't [...] or chills. He has never seen a laborer pullet farm before. Mr. London reports an allergy to [...] He is alert. Results Jeramie Ching MD [facility] 36on 07-02-2025 36 S: [facility] with complaint of right [...] 3 days. * You can get this nbtj-wbe-enxlgtr (OTC) at a drugstore. CALL BACK IF: [...] finger or toe swollen Protocols used: Toe [id number], Wound Infection [id number] Normal [facility] CBC W Auto Differential pane l (Bld)Ordered By: Isabel Soni on 06-04-2025 Basophils (Bld) [#/Vol] 0.1 10*3/uL 0.0 - 0.2 10*3/uL [facility] Basophils/100 WBC (Bld) 0.5 % 0.0 - 2.0 % [facility] Eosinophils (Bld) [#/Vol] 0.1 10*3/uL 0.0 - 0.5 10*3/uL [facility] Eosinophils/100 WBC (Bld) 1.5 % 0.0 - 6.0 % [facility] Erythrocyte distribution width (RBC) [Ratio] 13.8 % 11.5 - 15.0 % [facility] Hematocrit (Bld) [Volume fraction] 44.4 % 40.0 - 52.0 % [facility] Hemoglobin (Bld) [Mass/Vol] 14 g/dL 13.0 - 18.0 g/dL [facility] Immature granulocytes (Bld) [#/Vol] 0 10*3/uL NINF - 0.1 10*3/uL [facility] Immature granulocytes/100 WBC (Bld) 0.4 % 0.0 - 2.0 % [facility] Interpretation and review of laboratory results Abnormal [facility] Lymphocytes (Bld) [#/Vol] 1.5 10*3/uL 1.0 - 4.3 10*3/uL [facility] Lymphocytes/100 WBC (Bld) 15.5 % 15.0 - 45.0 % [facility] MCH (RBC) [Entitic mass] 32.3 pg 26.0 - 34.[address] [facility] MCHC (RBC) [Mass/Vol] 31.5 % 30.5 - 36.0 % [facility] MCV (RBC) [Entitic vol] 102.3 fL High 77.0 - 99.[address] [facility] Monocytes (Bld) [#/Vol] 0.8 10*3/uL 0.0 - 0.9 10*3/uL [facility] Monocytes/100 WBC (Bld) 8.1 % 5.0 - 13.0 % [facility] Neutrophils (Bld) [#/Vol] 7.1 10*3/uL 1.8 - 7.5 10*3/uL [facility] Neutrophils/100 WBC (Bld) 74 % 38.0 - 82.0 % [facility] Nucleated RBC/100 WBC (Bld) [Ratio] 0 % [facility] Platelet mean volume (Bld) [Entitic vol] 10.3 fL 9.0 - 12.[address] [facility] Platelets (Bld) [#/Vol] 254 10*3/uL 140 - 440 10*3/uL [facility] RBC (Bld) [#/Vol] 4.34 10*6/uL Low 4.40 - 5.9 0 10*6/uL [facility] WBC (Bld) [#/Vol] 9.6 10*3/uL 3.6 - 10.7 10*3/uL [facility] CBC WITH AUTO DIFFERENTIALon 06-04-2025 Basophils (Bld) [#/Vol] 0.1 10*3/uL Normal 0.0-0.2 [facility] Comment on above: Performed By: #### L [id number] ####[facility] Worker: DEEPALI DOWLING ([phone])[address] Basophils/100 WBC (Bld) 0.5 % Normal 0.0-2.0 [facility] Comment on above: Performed By: #### L [id number] ####[facility] Outreach Worker: DEEPALI DOWLING ([phone])[facility])[address] [place] [address] [place] Eosinophils (Bld) [#/Vol] 0.1 10*3/uL Normal 0.0-0.5 [facility] Comment on above: Performed By: #### L [id number] ####[facility] Outreach Worker: DEEPALI DOWLING ([phone])[facility])[address] [place] [address] Eosinophils/100 WBC (Bld) 1.5 % Normal 0.0-6.0 [facility] Comment on above: Performed By: #### L [id number] ####Community Health Outreach Worker: DEEPALI DOWLING ([id number])[facility])[address] [place] [address] Erythrocyte distribution width (RBC) [Ratio] 13.8 % Normal 11.5-15.0 [facility] Comment on above: Performed By: #### L [id number] ####Community Health Outreach Worker: DEEPALI DOWLING ([phone])[address] Hematocrit (Bld) [Volume fraction] 44.4 % Normal 40.0-52.0 [facility] Comment on above: Performed By: #### L [id number] ####Community Health Outreach Worker: DEEPALI DOWLING ([phone])[address] Hemoglobin (Bld) [Mass/Vol] 14.0 g/dL Normal 13.0-18.0 [facility] Comment on above: Performed By: #### L [id number] ####Community Health Outreach Worker: EDEPALI DOWLING ([phone])[facility])[address] [place] [address] IMMATURE GRANS % 0.4 % Normal 0.0-2.[address] [facility] Comment on above: Performed By: #### L [id number] ####Community Health Outreach Worker: DEEPALI DOWLING ([id number])[address] IMMATURE GRANS ABSOLUTE 0.0 10*3/uL Normal <0.1 [facility] Comment on above: Performed By: #### L [id number] ####Community Health Outreach Worker: DEEPALI DOWLING ([id number])[facility])[address] [place] [address] Lymphocytes (Bld) [#/Vol] 1.5 10*3/uL Normal 1.0-4.3 [facility] Comment on above: Performed By: #### L [id number] ####Community Health Outreach Worker: DEEPALI DOWLING ([id number])[facility])[address] [place] [address] Lymphocytes/100 WBC (Bld) 15.5 % Normal 15.0-45.0 [facility] Comment on above: Performed By: #### L [id number] ####Community Health Outreach Worker: DEEPALI DOWLING ([id number])[facility])[address] [place] [address] MCH (RBC) [Entitic mass] 32.3 pg Normal 26.0-34.0 [facility] Comment on above: Performed By: #### L [id number] ####Community Health Outreach Worker: DEEPALI DOWLING ([id number])[facility])[address] [place] [address] MCHC 31.5 % Normal 30.5-36.0 [facility] Comment on above: Performed By: #### L [id number] ####Community Health Outreach Worker: DEEPALI DOWLING ([id number])[address] MCV (RBC) [Entitic vol] 102.3 fL High 77.0-99.0 [facility] Comment on above: Performed By: #### L [id number] ####Community Health Outreach Worker: DEEPALI DOWLING ([phone])[address] Monocytes (Bld) [#/Vol] 0.8 10*3/uL Normal 0.0-0.9 [facility] Comment on above: Performed By: #### L [id number] ####Community Health Outreach Worker: DEEPALI DOWLING ([id number])[facility] ([facility] [place] [address] Monocytes/100 WBC (Bld) 8.1 % Normal 5.0-13.0 [facility] Comment on above: Performed By: #### L [id number] ####Community Health Outreach Worker: DEEPALI DOWLING ([phone])[facility] ([facility])[address] [place] [address] NEUTROPHILS ABSOLUTE 7.1 10*3/uL Normal 1.8-7.5 [facility] Comment on above: Performed By: #### L [id number] ####Community Health Outreach Worker: DEEPALI DOWLING ([phone])[facility] ([facility])[address] [place] [address] Neutrophils/100 WBC (Bld) 74.0 % Normal 38.0-82.0 [facility] Comment on above: Performed By: #### L [id number] ####Community Health Outreach Worker: DEEPALI DOWLING ([phone])[facility] ([facility])[address] [place] [address] NRBC 0.0 /100 WBCs Normal 0.0-2.0 [facility] Comment on above: Performed By: #### L [id number] ####Community Health Outreach Worker: DEEPALI DOWLING ([id number])[facility] ([facility])[address] [place] [address] Platelet mean volume (Bld) [Entitic vol] 10.3 fL Normal 9.0-12.7 [facility] Comment on above: Performed By: #### L [id number] ####Community Health Outreach Worker: DEEPALI DOWLING ([id number])[facility] ([facility])[address] [place] [address] [place] Platelets (Bld) [#/Vol] 254 10*3/uL Normal 140-440 [facility] Comment on above: Performed By: #### L [id number] ####Community Health Outreach Worker: DEEPALI DOWLING ([id number])[facility] ([facility])[address] [place] [address] [place] RBC (Bld) [#/Vol] 4.34 10*6/uL Low 4.40-5.[address] [facility] Comment on above: Performed By: #### L [id number] ####Community Health Outreach Worker: DEEPALI DOWLING ([id number])[facility] ([facility])[address] [place] [address] WBC (Bld) [#/Vol] 9.6 10*3/uL Normal 3.6-10.[address] [facility] Comment on above: Performed By: #### L [id number] ####Community Health Outreach Worker: DEEPALI DOWLING ([id number])[facility] ([facility])[address] [place] [address] COMPREHENSIVE METABOLIC PANE Barrie 06-04-2025 Albumin [Mass/Vol] 3.3 g/dL Low 3.4-4.[address] [facility] Comment on above: Performed By: #### L [id number] ####Community Health Outreach Worker: DEEPALI DOWLING ([id number])[facility] ([facility])[address] [place] [address] ALP [Catalytic activity/Vol] 70 U/L Normal 40-150 [facility] Comment on above: Performed By: #### L [id number] ####Community Health Outreach Worker: DEEPALI DOWLING ([phone])[facility])[address] [place] [address] ALT [Catalytic activity/Vol] 88 U/L High <[address] [facility] Comment on above: Performed By: #### L [id number] ####Community Health Outreach Worker: DEEPALI DOWLING ([phone])[facility])[address] [place] [address] Anion gap [Moles/Vol] 8 mmol/L Normal 3-13 [facility] Comment on above: Performed By: #### L [id number] ####Community Health Outreach Worker: DEEPALI DOWLING ([id number])[facility])[address] [place] [address] AST [Catalytic activity/Vol] 57 U/L High <[address] [facility] Comment on above: Performed By: #### L [id number] ####Community Health Outreach Worker: DEEPALI DOWLING ([id number])[facility] ([facility])[address] [place] [address] Bilirubin [Mass/Vol] 0.8 mg/dL Normal <1.2 [facility] Comment on above: Performed By: #### L [id number] ####Community Health Outreach Worker: DEEPALI DOWLING ([id number])[facility] ([facility])[address] [place] [address] Calcium [Mass/Vol] 8.8 mg/dL Normal 8.8-10.0 [facility] Comment on above: Performed By: #### L [id number] ####Community Health Outreach Worker: DEEPALI DOWLING ([id number])[facility] ([facility])[address] [place] [address] Chloride [Moles/Vol] 103 mmol/L Normal 98-107 [facility] Comment on above: Performed By: #### L [id number] ####Community Health Outreach Worker: DEEPALI DOWLING ([phone])[facility] ([facility])[address] [place] [address] CO2 [Moles/Vol] 29 mmol/L Normal 23-31 [facility] Comment on above: Performed By: #### L [id number] ####Community Health Outreach Worker: DEEPALI DOWLING ([phone])[facility])[address] [place] [address] Creatinine [Mass/Vol] 0.64 mg/dL Low 0.72-1.25 [facility] Comment on above: Performed By: #### L [id number] ####Community Health Outreach Worker: DEEPALI DOWLING ([phone])[facility] ([facility])[address] [place] [address] [place] GLOMERULAR FILTRATION RATE ML/MIN/1.73 SQ M.PREDICTED >90.0 Normal >60.0 [facility] Comment on above: Result Comment: Calc ulation based on the Chronic Kidney Disease Epidemiology Collaboration (CKD-EPI) equation refit without adjustment for race Performed By: #### L [id number] ####Community Health Outreach Worker: DEEPALI DOWLING ([phone])[facility])[address] [place] [address] Glucose [Mass/Vol] 89 mg/dL Normal 82-115 [facility] Comment on above: Performed By: #### L [id number] ####Community Health Outreach Worker: DEEPALI DOWLING ([id number])[facility])[address] [place] [address] Potassium [Moles/Vol] 4.3 mmol/L Normal 3.5-5.1 [facility] Comment on above: Result Comment: Plas ma potassium values may be up to 0.5 mmol/L lower than serum values. Performed By: #### L [id number] ####Community Health Outreach Worker: DEEPALI DOWLING ([phone])[facility])[address] [place] [address] Protein [Mass/Vol] 6.0 g/dL Low 6.4-8.3 [facility] Comment on above: Performed By: #### L [id number] ####Community Health Outreach Worker: DEEPALI DOWLING ([id number])[facility] ([facility])[address] [place] [address] Sodium [Moles/Vol] 140 mmol/L Normal 136-145 [facility] Comment on above: Performed By: #### L [id number] ####Community Health Outreach Worker: DEEPALI DOWLING ([phone])[facility])[address] [place] [address] Urea nitrogen [Mass/Vol] 21 mg/dL Normal 9-23 [facility] Comment on above: Performed By: #### L [id number] ####Community Health Outreach Worker: DEEPALI DOWLING ([phone])[facility])[address] [place] [address] Comprehensive metabolic 1998 panelon 06-04-2025 Albumin [Mass/Vol] 3.3 g/dL Low 3.4 - 4.8 g/dL [facility] ALP [Catalytic activity/Vol] 70 U/L 40 - 150 U/L [facility] ALT [Catalytic activity/Vol] 88 U/L High NINF - 40 U/L [facility] Anion gap [Moles/Vol] 8 mmol/L 3 - 13 mmol/L [facility] AST [Catalytic activity/Vol] 57 U/L High NINF - 34 U/L [facility] Bilirubin [Mass/Vol] 0.8 mg/dL NINF - 1.2 mg/dL [facility] Calcium [Mass/Vol] 8.8 mg/dL 8.8 - 10. 0 mg/dL [facility] Chloride [Moles/Vol] 103 mmol/L 98 - 107 mmol/L [facility] CO2 [Moles/Vol] 29 mmol/L 23 - 31 mmol/L [facility] Creatinine [Mass/Vol] 0.64 mg/dL Low 0.72 - 1.25 mg/dL [facility] GFR/1.73 sq M.predicted (S/P/Bld) [Vol rate/Area] - PINF [facility] Comment on above: Calculation based on the Chronic Kidney Disease Epidemiology Collaboration (CKD-EPI) equation refit without adjustment for race Glucose [Mass/Vol] 89 mg/dL 82 - 115 mg/dL [facility] Interpretation and review of laboratory results Abnormal [facility] Potassium [Moles/Vol] 4.3 mmol/L 3.5 - 5.1 mmol/L [facility] Comment on above: Plasma potassium carissa ues may be up to 0.5 mmol/L lower than serum values. Protein [Mass/Vol] 6 g/dL Low 6.4 - 8.3 g/dL [facility] Sodium [Moles/Vol] 140 mmol/L 136 - 145 mmol/L [facility] Urea nitrogen [Mass/Vol] 21 mg/dL 9 - 23 mg/dL [facility] Laboratory - Chemistry and C hemistry - challengeon 06-04-2025 Prostate specific Ag [Mass/Vol] 7.253 ng/mL [facility] ng/mL [facility] No Panel Informationon 06-04 Interpretation and review of laboratory results Abnormal [facility] Testing performed on the Solidmation using a two-step chemiluminescent microparticle immunoassay method. Results obtained by different methods should not be used interchangeably. A prostate specific antigen of >0.2 ng/mL is considered as initial evidence of biochemical recurrence following radical prostatectomy. [facility] Office Visiton 06-04-2025 Follow-up visit [id number] Izabela London 1940 M Date Provider Department Center 06/04/2025 [id number] URIAS [facility] ONC None Family History Problem Relation Age of Onset Cancer Father 77 Comments: Colon Family Status - Relation Status Age at Father Level of Service:75404 [place] OFFICE/OUTPATIENT ESTABLISHED MOD MDM 30 MIN Reason for Visit and Comments: Follow-up [034157] Normal [facility] PSA TOTAL (DIAGNOSTIC POST-P ROSTATECTOMY)on 06-04-2025 PROSTATE SPECIFIC AG TOTAL 7.253 ng/mL High <=0.200 [facility] Comment on above: Result Comment: YANETH Ding COMMENTS: Testing performed on the Solidmation using a two-step chemiluminescent microparticle immunoassay method. Results obtained by different methods should not be used interchangeably. A prostate specific antigen of >0.2 ng/mL is considered as initial evidence of biochemical recurrence following radical prostatectomy. Performed By: #### L [id number] ####Community Health Outreach Worker: DEEPALI DOWLING ([phone])[facility] ([address] Progress Noteon 06-04-2025 Progress Note Patient here to see Dr. Urias 1-Lav, 2-5ml SST drawn from R arm, 1 stick. Labs sent to [facility]. Normal [facility] Progress Note Patient ID: Izabela London [...] (L) 05/10/2025 PSA Total (Diagnostic Post-Prostatectomy) Order: [id number] Status: Final result Next appt: 08/02/2025 at 11:00 AM in Infusion Therapy (CHAIR 19) Dx: Malignant neoplasm metastatic to bone... Test Result Released: Yes (seen) 0 Result Notes Component Ref Range & Units 1 mo ago 3 mo ago 6 mo ago 9 mo ago PSA Total <=0.200 ng/mL 9.250 High 8.814 High 5.100 High 1.608 R Resulting Agency [facility] Assessment/Plan he appears to be in complete [...] 06/04/25 Electronically signed Kristen Urias MD Normal [facility] COMPREHENSIVE METABOLIC PANE Barrie 05-10-2025 Albumin [Mass/Vol] 3.6 g/dL Normal 3.4-4.8 [facility] Comment on above: Performed By: #### L [id number] ####Community Health Outreach Worker: DEEPALI DOWLING ([phone])[facility])[address] [place] [address] ALP [Catalytic activity/Vol] 62 U/L Normal 40-150 [facility] Comment on above: Performed By: #### L [id number] ####[facility] Health Outreach Worker: DEEPALI DOWLING ([id number])[facility])[address] [place] [address] ALT [Catalytic activity/Vol] 125 U/L High <40 [facility] Comment on above: Performed By: #### L [id number] ####[facility] Outreach Worker: DEEPALI DOWLING ([id number])[address] Anion gap [Moles/Vol] 7 mmol/L Normal 3-13 [facility] Comment on above: Performed By: #### L [id number] ####[facility] Outreach Worker: DEEPALI DOWLING ([id number])[facility])[address] [place] [address] AST [Catalytic activity/Vol] 81 U/L High <34 [facility] Comment on above: Performed By: #### L [id number] ####[facility] Outreach Worker: DEEPALI DOWLING ([id number])[facility])[address] [place] [address] Bilirubin [Mass/Vol] 0.7 mg/dL Normal <1.2 [facility] Comment on above: Performed By: #### L [id number] ####Community Health Outreach Worker: DEEPALI DOWLING ([id number])[facility] ([facility])[address] [place] [address] Calcium [Mass/Vol] 9.9 mg/dL Normal 8.8-10.0 [facility] Comment on above: Performed By: #### L [id number] ####[facility] Outreach Worker: DEEPALI DOWLING ([id number])[facility] ([facility])[address] [place] [address] Chloride [Moles/Vol] 103 mmol/L Normal 98-107 [facility] Comment on above: Performed By: #### L [id number] ####[facility] Outreach Worker: DEEPALI DOWLING ([id number])[facility] ([facility])[address] [place] [address] CO2 [Moles/Vol] 28 mmol/L Normal 23-31 [facility] Comment on above: Performed By: #### L [id number] ####[facility] Outreach Worker: DEEPALI DOWLING ([id number])[facility] ([facility])[address] [place] [address] Creatinine [Mass/Vol] 0.66 mg/dL Low 0.72-1.25 [facility] Comment on above: Performed By: #### L [id number] ####[facility] Outreach Worker: DEEPALI DOWLING ([id number])[facility])[address] [place] [address] GLOMERULAR FILTRATION RATE ML/MIN/1.73 SQ M.PREDICTED >90.0 Normal >60.0 [facility] Comment on above: Result Comment: Calc ulation based on the Chronic Kidney Disease Epidemiology Collaboration (CKD-EPI) equation refit without adjustment for race Performed By: #### L [id number] ####[facility] Outreach Worker: DEEPALI DOWLING ([id number])[facility] ([facility])[address] [place] [address] Glucose [Mass/Vol] 101 mg/dL Normal 82-115 [facility] Comment on above: Performed By: #### L [id number] ####[facility] Outreach Worker: DEEPALI DOWLING ([id number])[facility])[address] [place] [address] Potassium [Moles/Vol] 4.1 mmol/L Normal 3.5-5.1 [facility] Comment on above: Result Comment: Plas wi potassium values may be up to 0.5 mmol/L lower than serum values. Performed By: #### L [id number] ####[facility] Outreach Worker: DEEPALI DOWLING ([phone])[facility])[address] [place] [address] Protein [Mass/Vol] 6.9 g/dL Normal 6.4-8.3 [facility] Comment on above: Performed By: #### L [id number] ####[facility] Outreach Worker: DEEPALI DOWLING ([phone])[facility])[address] [place] [address] Sodium [Moles/Vol] 138 mmol/L Normal 136-145 [facility] Comment on above: Performed By: #### L [id number] ####[facility] Out[facility] Worker: DEEPALI DOWLING ([id number])[facility])[address] [place] [address] Urea nitrogen [Mass/Vol] 21 mg/dL Normal 9-23 [facility] Comment on above: Performed By: #### L [id number] ####[facility] Out[facility] Worker: DEEPALI DOWLING ([phone])[facility])[address] [place] [address] Comprehensive metabolic 1998 panelon 05-10-2025 Albumin [Mass/Vol] 3.6 g/dL 3.4 - 4.8 g/dL [facility] ALP [Catalytic activity/Vol] 62 U/L 40 - 150 U/L [facility] ALT [Catalytic activity/Vol] 125 U/L High NINF - 40 U/L [facility] Anion gap [Moles/Vol] 7 mmol/L 3 - 13 mmol/L [facility] AST [Catalytic activity/Vol] 81 U/L High NINF - 34 U/L [facility] Bilirubin [Mass/Vol] 0.7 mg/dL NINF - 1.2 mg/dL [facility] Calcium [Mass/Vol] 9.9 mg/dL 8.8 - 10. 0 mg/dL [facility] Chloride [Moles/Vol] 103 mmol/L 98 - 107 mmol/L [facility] CO2 [Moles/Vol] 28 mmol/L 23 - 31 mmol/L [facility] Creatinine [Mass/Vol] 0.66 mg/dL Low 0.72 - 1.25 mg/dL [facility] GFR/1.73 sq M.predicted (S/P/Bld) [Vol rate/Area] - PINF [facility] Comment on above: Calculation based on the Chronic Kidney Disease Epidemiology Collaboration (CKD-EPI) equation refit without adjustment for race Glucose [Mass/Vol] 101 mg/dL 82 - 115 mg/dL [facility] Interpretation and review of laboratory results Abnormal [facility] Potassium [Moles/Vol] 4.1 mmol/L 3.5 - 5.1 mmol/L [facility] Comment on above: Plasma potassium carissa ues may be up to 0.5 mmol/L lower than serum values. Protein [Mass/Vol] 6.9 g/dL 6.4 - 8.3 g/dL [facility] Sodium [Moles/Vol] 138 mmol/L 136 - 145 mmol/L [facility] Urea nitrogen [Mass/Vol] 21 mg/dL 9 - 23 mg/dL [facility] Progress Noteon 05-10-2025 Progress Note Patient [...] care. Patient discharged home ambulatory with . Normal [facility] 36on 05-09-2025 36 S: Patient spoke wit h CAC nurse regarding neck pain B: Onset [...] normal activities) Protocols used: Neck Pain or [id number] Normal [facility] CBC W Auto Differential pane l (Bld)on 04-09-2025 Basophils (Bld) [#/Vol] 0 10*3/uL 0.0 - 0.2 10*3/uL [facility] Basophils/100 WBC (Bld) 0.4 % 0.0 - 2.0 % [facility] Eosinophils (Bld) [#/Vol] 0.1 10*3/uL 0.0 - 0.5 10*3/uL [facility] Eosinophils/100 WBC (Bld) 0.7 % 0.0 - 6.0 % [facility] Erythrocyte distribution width (RBC) [Ratio] 13.4 % 11.5 - 15.0 % [facility] Hematocrit (Bld) [Volume fraction] 43.5 % 40.0 - 52.0 % [facility] Hemoglobin (Bld) [Mass/Vol] 13.9 g/dL 13.0 - 18.0 g/dL [facility] Immature granulocytes (Bld) [#/Vol] 0 10*3/uL NINF - 0.1 10*3/uL [email or web address] Immature granulocytes/100 WBC (Bld) 0.4 % 0.0 - 2.0 % [facility] Interpretation and review of laboratory results Abnormal [facility] Lymphocytes (Bld) [#/Vol] 1.5 10*3/uL 1.0 - 4.3 10*3/uL [email or web address] Lymphocytes/100 WBC (Bld) 16 % 15.0 - 45.0 % [facility] MCH (RBC) [Entitic mass] 32.6 pg 26.0 - 34.[address] [facility] MCHC (RBC) [Mass/Vol] 32 % 30.5 - 36.0 % [facility] MCV (RBC) [Entitic vol] 101.9 fL High 77.0 - 99.[address] [facility] Monocytes (Bld) [#/Vol] 0.7 10*3/uL 0.0 - 0.9 10*3/uL [facility] Monocytes/100 WBC (Bld) 7.9 % 5.0 - 13.0 % [facility] Neutrophils (Bld) [#/Vol] 6.8 10*3/uL 1.8 - 7.5 10*3/uL [facility] Neutrophils/100 WBC (Bld) 74.6 % 38.0 - 82.0 % [facility] Nucleated RBC/100 WBC (Bld) [Ratio] 0 % [facility] Platelet mean volume (Bld) [Entitic vol] 10.8 fL 9.0 - 12.[address] [facility] Platelets (Bld) [#/Vol] 237 10*3/uL 140 - 440 10*3/uL [facility] RBC (Bld) [#/Vol] 4.27 10*6/uL Low 4.40 - 5.9 0 10*6/uL [facility] WBC (Bld) [#/Vol] 9.1 10*3/uL 3.6 - 10.7 10*3/uL [facility] CBC WITH AUTO DIFFERENTIALon 04-09-2025 Basophils (Bld) [#/Vol] 0.0 10*3/uL Normal 0.0-0.2 [facility] Comment on above: Performed By: #### L [id number] ####[facility] Worker: DEEPALI DOWLING ([phone])[address] Basophils/100 WBC (Bld) 0.4 % Normal 0.0-2.0 [facility] Comment on above: Performed By: #### L [id number] ####[facility] Out[facility] Worker: DEEPALI DOWLING ([id number])[facility] ([facility])[address] [place] [address] Eosinophils (Bld) [#/Vol] 0.1 10*3/uL Normal 0.0-0.5 [facility] Comment on above: Performed By: #### L [id number] ####[facility] Outreach Worker: DEEPALI DOWLING ([phone])[facility])[address] [place] [address] Eosinophils/100 WBC (Bld) 0.7 % Normal 0.0-6.0 [facility] Comment on above: Performed By: #### L [id number] ####Community Health Outreach Worker: DEEPALI DOWLING ([id number])[facility])[address] [place] [address] Erythrocyte distribution width (RBC) [Ratio] 13.4 % Normal 11.5-15.0 [facility] Comment on above: Performed By: #### L [id number] ####Community Health Outreach Worker: DEEPALI DOWLING ([phone])[address] Hematocrit (Bld) [Volume fraction] 43.5 % Normal 40.0-52.0 [facility] Comment on above: Performed By: #### L [id number] ####Community Health Outreach Worker: DEEPALI DOWLING ([phone])[address] Hemoglobin (Bld) [Mass/Vol] 13.9 g/dL Normal 13.0-18.0 [facility] Comment on above: Performed By: #### L [id number] ####Community Health Outreach Worker: DEEPALI DOWLING ([id number])[facility])[address] [place] [address] IMMATURE GRANS % 0.4 % Normal 0.0-2.[address] [facility] Comment on above: Performed By: #### L [id number] ####Community Health Outreach Worker: DEEPALI DOWLING ([id number])[facility])[address] [place] [address] IMMATURE GRANS ABSOLUTE 0.0 10*3/uL Normal <0.1 [facility] Comment on above: Performed By: #### L [id number] ####Community Health Outreach Worker: DEEPALI DOWLING ([id number])[facility])[address] [place] [address] Lymphocytes (Bld) [#/Vol] 1.5 10*3/uL Normal 1.0-4.3 [facility] Comment on above: Performed By: #### L [id number] ####Community Health Outreach Worker: DEEPALI DOWLING ([id number])[facility])[address] [place] [address] Lymphocytes/100 WBC (Bld) 16.0 % Normal 15.0-45.0 [facility] Comment on above: Performed By: #### L [id number] ####Community Health Outreach Worker: DEEPALI DOWLING ([id number])[facility])[address] [place] [address] MCH (RBC) [Entitic mass] 32.6 pg Normal 26.0-34.0 [facility] Comment on above: Performed By: #### L [id number] ####Community Health Outreach Worker: DEEPALI DOWLING ([id number])[facility])[address] [place] [address] MCHC 32.0 % Normal 30.5-36.0 [facility] Comment on above: Performed By: #### L [id number] ####Community Health Outreach Worker: DEEPALI DOWLING ([id number])[facility])[address] [place] [address] MCV (RBC) [Entitic vol] 101.9 fL High 77.0-99.0 [facility] Comment on above: Performed By: #### L [id number] ####Community Health Outreach Worker: DEEPALI DOWLING ([id number])[facility])[address] [place] [address] Monocytes (Bld) [#/Vol] 0.7 10*3/uL Normal 0.0-0.9 [facility] Comment on above: Performed By: #### L [id number] ####Community Health Outreach Worker: DEEPALI [id number])[facility] ([facility])[address] [place] [address] Monocytes/100 WBC (Bld) 7.9 % Normal 5.0-13.0 [facility] Comment on above: Performed By: #### L [id number] ####Community Health Outreach Worker: DEEPALI DOWLING ([id number])[facility] ([facility])[address] [place] [address] NEUTROPHILS ABSOLUTE 6.8 10*3/uL Normal 1.8-7.5 [facility] Comment on above: Performed By: #### L [id number] ####Community Health Outreach Worker: DEEPALI DOWLING ([id number])[facility] ([facility])[address] [place] [address] Neutrophils/100 WBC (Bld) 74.6 % Normal 38.0-82.0 [facility] Comment on above: Performed By: #### L [id number] ####Community Health Outreach Worker: DEEPALI DOWLING ([id number])[facility] ([facility])[address] [place] [address] NRBC 0.0 /100 WBCs Normal 0.0-2.0 [facility] Comment on above: Performed By: #### L [id number] ####Community Health Outreach Worker: DEEPALI DOWLING ([id number])[facility] ([facility])[address] [place] [address] Platelet mean volume (Bld) [Entitic vol] 10.8 fL Normal 9.0-12.7 [facility] Comment on above: Performed By: #### L [id number] ####Community Health Outreach Worker: DEEPALI DOWLING ([id number])[facility] ([facility])[address] [place] [address] [place] Platelets (Bld) [#/Vol] 237 10*3/uL Normal 140-440 [facility] Comment on above: Performed By: #### L [id number] ####Community Health Outreach Worker: DEEPALI DOWLING ([id number])[facility] ([facility])[address] [place] [address] [place] RBC (Bld) [#/Vol] 4.27 10*6/uL Low 4.40-5.[address] [facility] Comment on above: Performed By: #### L [id number] ####Community Health Outreach Worker: DEEPALI DOWLING ([id number])[facility] ([facility])[address] [place] [address] WBC (Bld) [#/Vol] 9.1 10*3/uL Normal 3.6-10.[address] [facility] Comment on above: Performed By: #### L [id number] ####Community Health Outreach Worker: DEEPALI DOWLING ([phone])[facility] ([facility])[address] [place] [address] COMPREHENSIVE METABOLIC PANE Barrie 04-09-2025 Albumin [Mass/Vol] 3.6 g/dL Normal 3.4-4.[address] [facility] Comment on above: Performed By: #### L [id number] ####Community Health Outreach Worker: DEEPALI DOWLING ([id number])[facility] ([facility])[address] [place] [address] ALP [Catalytic activity/Vol] 56 U/L Normal 40-150 [facility] Comment on above: Performed By: #### L [id number] ####Community Health Outreach Worker: DEEPALI DOWLING ([id number])[facility])[address] [place] [address] ALT [Catalytic activity/Vol] 57 U/L High <[address] [facility] Comment on above: Performed By: #### L [id number] ####Community Health Outreach Worker: DEEPALI DOWLING ([id number])[facility])[address] [place] [address] Anion gap [Moles/Vol] 9 mmol/L Normal 3-13 [facility] Comment on above: Performed By: #### L [id number] ####Community Health Outreach Worker: DEEPALI DOWLING ([id number])[facility])[address] [place] [address] AST [Catalytic activity/Vol] 46 U/L High <34 [facility] Comment on above: Performed By: #### L [id number] ####Community Health Outreach Worker: DEEPALI DOWLING ([id number])[facility] ([facility])[address] [place] [address] Bilirubin [Mass/Vol] 1.0 mg/dL Normal <1.2 [facility] Comment on above: Performed By: #### L [id number] ####Community Health Outreach Worker: DEEPALI DOWLING ([phone])[facility])[address] [place] [address] Calcium [Mass/Vol] 9.1 mg/dL Normal 8.8-10.0 [facility] Comment on above: Performed By: #### L [id number] ####Community Health Outreach Worker: DEEPALI DOWLING ([id number])[facility] ([facility])[address] [place] [address] Chloride [Moles/Vol] 105 mmol/L Normal 98-107 [facility] Comment on above: Performed By: #### L [id number] ####Community Health Outreach Worker: DEEPALI DOWLING ([id number])[facility] ([facility])[address] [place] [address] CO2 [Moles/Vol] 28 mmol/L Normal 23-31 [facility] Comment on above: Performed By: #### L [id number] ####Community Health Outreach Worker: DEEPALI DOWLING ([id number])[facility])[address] [place] [address] Creatinine [Mass/Vol] 0.62 mg/dL Low 0.72-1.25 [facility] Comment on above: Performed By: #### L [id number] ####Community Health Outreach Worker: DEEPALI DOWLING ([id number])[facility] ([facility])[address] [place] [address] [place] GLOMERULAR FILTRATION RATE ML/MIN/1.73 SQ M.PREDICTED >90.0 Normal >60.0 [facility] Comment on above: Result Comment: Calc ulation based on the Chronic Kidney Disease Epidemiology Collaboration (CKD-EPI) equation refit without adjustment for race Performed By: #### L [id number] ####Community Health Outreach Worker: DEEPALI DOWLING ([id number])[facility] ([facility])[address] [place] [address] Glucose [Mass/Vol] 95 mg/dL Normal 82-115 [facility] Comment on above: Performed By: #### L [id number] ####Community Health Outreach Worker: DEEPALI DOWLING ([id number])[facility])[address] [place] [address] Potassium [Moles/Vol] 4.3 mmol/L Normal 3.5-5.1 [facility] Comment on above: Result Comment: Plas ma potassium values may be up to 0.5 mmol/L lower than serum values. Performed By: #### L [id number] ####Community Health Outreach Worker: DEEPALI DOWLING ([id number])[facility])[address] [place] [address] Protein [Mass/Vol] 6.4 g/dL Normal 6.4-8.3 [facility] Comment on above: Performed By: #### L [id number] ####Community Health Outreach Worker: DEEPALI DOWLING ([id number])[facility] ([facility])[address] [place] [address] Sodium [Moles/Vol] 142 mmol/L Normal 136-145 [facility] Comment on above: Performed By: #### L [id number] ####Community Health Outreach Worker: DEEPALI DOWLING ([id number])[facility])[address] [place] [address] Urea nitrogen [Mass/Vol] 16 mg/dL Normal 9-23 [facility] Comment on above: Performed By: #### L [id number] ####Community Health Outreach Worker: DEEPALI DOWLING ([id number])[facility] ([facility])[address] [place] [address] Comprehensive metabolic 1998 panelon 04-09-2025 Albumin [Mass/Vol] 3.6 g/dL 3.4 - 4.8 g/dL [facility] ALP [Catalytic activity/Vol] 56 U/L 40 - 150 U/L [facility] ALT [Catalytic activity/Vol] 57 U/L High NINF - 40 U/L [facility] Anion gap [Moles/Vol] 9 mmol/L 3 - 13 mmol/L [facility] AST [Catalytic activity/Vol] 46 U/L High NINF - 34 U/L [facility] Bilirubin [Mass/Vol] 1 mg/dL NINF - 1.2 mg/dL [facility] Calcium [Mass/Vol] 9.1 mg/dL 8.8 - 10. 0 mg/dL [facility] Chloride [Moles/Vol] 105 mmol/L 98 - 107 mmol/L [facility] CO2 [Moles/Vol] 28 mmol/L 23 - 31 mmol/L [facility] Creatinine [Mass/Vol] 0.62 mg/dL Low 0.72 - 1.25 mg/dL [facility] GFR/1.73 sq M.predicted (S/P/Bld) [Vol rate/Area] - PINF [facility] Comment on above: Calculation based on the Chronic Kidney Disease Epidemiology Collaboration (CKD-EPI) equation refit without adjustment for race Glucose [Mass/Vol] 95 mg/dL 82 - 115 mg/dL [facility] Interpretation and review of laboratory results Abnormal [facility] Potassium [Moles/Vol] 4.3 mmol/L 3.5 - 5.1 mmol/L [facility] Comment on above: Plasma potassium carissa ues may be up to 0.5 mmol/L lower than serum values. Protein [Mass/Vol] 6.4 g/dL 6.4 - 8.3 g/dL [facility] Sodium [Moles/Vol] 142 mmol/L 136 - 145 mmol/L [facility] Urea nitrogen [Mass/Vol] 16 mg/dL 9 - 23 mg/dL [facility] Laboratory - Chemistry and C hemistry - challengeon 04-09-2025 Prostate specific Ag [Mass/Vol] 9.25 ng/mL High NINF - 0.200 ng/mL [facility] No Panel Informationon 04-09 Interpretation and review of laboratory results Abnormal [facility] Testing performed on the Solidmation using a two-step chemiluminescent microparticle immunoassay method. Results obtained by different methods should not be used interchangeably. A prostate specific antigen of >0.2 ng/mL is considered as initial evidence of biochemical recurrence following radical prostatectomy. [facility] Office Visiton 04-09-2025 Follow-up visit [id number] Izabela London 1940 M Date Provider Department Center 04/09/2025 [id number] URIAS [facility] None Family History Problem Relation Age of Onset Cancer Father 77 Comments: Colon Family Status - Relation Status Age at Father Level of Service:43120 [place] OFFICE/OUTPATIENT ESTABLISHED MOD MDM 30 MIN Reason for Visit and Comments: Follow-up [584617] [facility] PSA TOTAL (DIAGNOSTIC POST-P ROSTATECTOMY)on 04-09-2025 PROSTATE SPECIFIC AG TOTAL 9.250 ng/mL High <=0.200 [facility] Comment on above: Result Comment: YANETH Ding COMMENTS: Testing performed on the Solidmation using a two-step chemiluminescent microparticle immunoassay method. Results obtained by different methods should not be used interchangeably. A prostate specific antigen of >0.2 ng/mL is considered as initial evidence of biochemical recurrence following radical prostatectomy. Performed By: #### L [id number] ####Community Health Outreach Worker: DEEPALI DOWLING ([phone])[address] Progress Noteon 04-09-2025 Progress Note Patient seen by Dr Urias Labs drawn 1 stick left arm 1 lav 2 sst All labs sent to [facility] Progress Note Patient ID: Izabela London is [...] on the day of the visit. Normal [facility] 36on 04-02-2025 36 [facility] Oncology Care Plan Abiraterone Acetate 250 MG Pharmacy Recommendations/Educati on/Other I spoke with Izabela today regarding abiraterone + prednisone. He reports that he is doing well. Denies all side effects or concerns. No missed doses reported. Continuation of therapy is appropriate. Delivery scheduled for 04/04/25. F/U ~ 1 month or as clinically indicated Bhanu Diaz PharmD, [facility] Clinical Specialty Pharmacist [phone] [facility] 03-16-2025 36 [facility] Oncology Care Plan Abiraterone Acetate 250 MG Pharmacy Recommendations/Educati on/Other I spoke with Izabela today regarding abiraterone + prednisone. He reports that he is doing well. Denies all side effects or concerns. No missed doses reported. Continuation of therapy is appropriate. F/U ~ 2 weeks for refill & check-in Bhanu Diaz PharmD, [facility] Clinical Specialty Pharmacist [facility] 03-06-2025 36 [facility] Oncology Care Plan SUBJECTIVE Izabela London is a 85 year old Male who was referred to [facility] for clinical management services for [...] time. Patient is agreeable to care plan. [facility] will continue to manage clinical pharmacy services and coordinate refills/deliveries with the patient. Delivery is scheduled for 03/08/25. Planned start date 03/09/25. F/U 1 week after therapy start Bhanu Diaz, PharmD, [facility] Clinical Specialty Pharmacist [facility] Office Visiton 03-05-2025 Follow-up visit [id number] Izabela London 1940 M Date Provider Department Center 03/05/2025 [id number] URIAS [facility] None Family History Problem Relation Age of Onset Cancer Father 77 Comments: Colon Family Status - Relation Status Age at Father Level of Service:35784 [place] OFFICE/OUTPATIENT ESTABLISHED HIGH [facility] 40 MIN Reason for Visit and Comments: Follow-up [787910] [facility] Progress Noteon 03-05-2025 Progress Note Patient ID: [...] Report Dictated on Electronically Signed By: Izabela Roes MD Electronically Signed Date/Time: 02/23/2025 2:12 PM EDT Narrative Performed by: [facility] Testing performed on the Solidmation using a two-step chemiluminescent microparticle immunoassay method. [...] Performed by: [facility] Testing performed on the Solidmation using a two-step chemiluminescent microparticle immunoassay method. [...] on the day of the visit. Normal [facility] Progress Note Chemotherapy kendra barrera completed with patient and his Lori for [...] patient that the Zytiga will come from [facility] as he had been using for previous treatment. The pt would like the Prednisone to be sent to [facility] if possible as well. Discussed [...] form. Pt declined copy of consent form. [facility] 36on 02-14-2025 36 Called pt to review Dr. Urias's message as written with him. Pt agrees with plan and voiced understanding. Order for bone scan given to schedulers. [facility] 36 ----- Message from Kristen Urias MD sent at 02/14/2025 11:42 AM EDT ----- Please let him know PSA. I will order bone scan which we will need to schedule and have him follow-up after. Thanks ----- Message ----- From: Radico UserFlavioiLyngo Sent: 02/13/2025 11:24 AM EDT To: Kristen Urias MD [facility] 29on 02-13-2025 29 Addended by: KRISTEN URIAS on: 02/14/2025 11:44 AM Modules accepted: Orders [facility] CBC W Auto Differential pane l (Bld)on 02-13-2025 Basophils (Bld) [#/Vol] 0.1 10*3/uL 0.0 - 0.2 10*3/uL [facility] Basophils/100 WBC (Bld) 0.6 % 0.0 - 2.0 % [facility] Eosinophils (Bld) [#/Vol] 0.2 10*3/uL 0.0 - 0.5 10*3/uL [facility] Eosinophils/100 WBC (Bld) 2.3 % 0.0 - 6.0 % [facility] Erythrocyte distribution width (RBC) [Ratio] 13.1 % 11.5 - 15.0 % [facility] Hematocrit (Bld) [Volume fraction] 41.5 % 40.0 - 52.0 % [facility] Hemoglobin (Bld) [Mass/Vol] 14 g/dL 13.0 - 18.0 g/dL [facility] Immature granulocytes (Bld) [#/Vol] 0 10*3/uL NINF - 0.1 10*3/uL [email or web address] Immature granulocytes/100 WBC (Bld) 0.2 % 0.0 - 2.0 % [facility] Interpretation and review of laboratory results Abnormal [facility] Lymphocytes (Bld) [#/Vol] 2.3 10*3/uL 1.0 - 4.3 10*3/uL [facility] Lymphocytes/100 WBC (Bld) 27.2 % 15.0 - 45.0 % [facility] MCH (RBC) [Entitic mass] 32.4 pg 26.0 - 34.[address] [facility] MCHC (RBC) [Mass/Vol] 33.7 % 30.5 - 36.0 % [facility] MCV (RBC) [Entitic vol] 96.1 fL 77.0 - 99.[address] [facility] Monocytes (Bld) [#/Vol] 0.8 10*3/uL 0.0 - 0.9 10*3/uL [facility] Monocytes/100 WBC (Bld) 9.6 % 5.0 - 13.0 % [facility] Neutrophils (Bld) [#/Vol] 5.1 10*3/uL 1.8 - 7.5 10*3/uL [facility] Neutrophils/100 WBC (Bld) 60.1 % 38.0 - 82.0 % [facility] Nucleated RBC/100 WBC (Bld) [Ratio] 0 % [facility] Platelet mean volume (Bld) [Entitic vol] 10 fL 9.0 - 12.[address] [facility] Platelets (Bld) [#/Vol] 219 10*3/uL 140 - 440 10*3/uL [facility] RBC (Bld) [#/Vol] 4.32 10*6/uL Low 4.40 - 5.9 0 10*6/uL [facility] WBC (Bld) [#/Vol] 8.4 10*3/uL 3.6 - 10.7 10*3/uL [facility] CBC WITH AUTO DIFFERENTIALon 02-13-2025 Basophils (Bld) [#/Vol] 0.1 10*3/uL Normal 0.0-0.[address] [facility] Comment on above: Performed By: #### L [id number] ####[facility] Outreach Worker: DEEPALI DOWLING ([id number])[facility])[address] [place] [address] Basophils/100 WBC (Bld) 0.6 % Normal 0.0-2.0 [facility] Comment on above: Performed By: #### L [id number] ####[facility] Health Outreach Worker: DEEPALI DOWLING ([id number])[facility])[address] [place] [address] Eosinophils (Bld) [#/Vol] 0.2 10*3/uL Normal 0.0-0.5 [facility] Comment on above: Performed By: #### L [id number] ####[facility] Outreach Worker: DEEPALI DOWLING ([id number])[address] Eosinophils/100 WBC (Bld) 2.3 % Normal 0.0-6.0 [facility] Comment on above: Performed By: #### L [id number] ####[facility] Outreach Worker: DEEPALI DOWLING ([id number])[facility])[address] [place] [address] Erythrocyte distribution width (RBC) [Ratio] 13.1 % Normal 11.5-15.0 [facility] Comment on above: Performed By: #### L [id number] ####[facility] Worker: DEEPALI DOWLING ([id number])[address] Hematocrit (Bld) [Volume fraction] 41.5 % Normal 40.0-52.0 [facility] Comment on above: Performed By: #### L [id number] ####[facility] Outreach Worker: DEEPALI DOWLING ([id number])[facility])[address] [place] [address] Hemoglobin (Bld) [Mass/Vol] 14.0 g/dL Normal 13.0-18.0 [facility] Comment on above: Performed By: #### L [id number] ####[facility] Outreach Worker: DEEPALI DOWLING ([id number])[facility] [address] IMMATURE GRANS % 0.2 % Normal 0.0-2.0 [facility] Comment on above: Performed By: #### L [id number] ####[facility] Health Outreach Worker: DEEPALI DOWLING ([id number])[facility])[address] [place] [address] IMMATURE GRANS ABSOLUTE 0.0 10*3/uL Normal <0.1 [facility] Comment on above: Performed By: #### L [id number] ####[facility] Outreach Worker: DEEPALI DOWLING ([id number])[facility])[address] [place] [address] Lymphocytes (Bld) [#/Vol] 2.3 10*3/uL Normal 1.0-4.3 [facility] Comment on above: Performed By: #### L [id number] ####[facility] Outreach Worker: DEEPALI DOWLING ([phone])[facility])[address] [place] [address] Lymphocytes/100 WBC (Bld) 27.2 % Normal 15.0-45.0 [facility] Comment on above: Performed By: #### L [id number] ####[facility] Outreach Worker: DEEPALI DOWLING ([id number])[facility])[address] [place] [address] MCH (RBC) [Entitic mass] 32.4 pg Normal 26.0-34.0 [facility] Comment on above: Performed By: #### L [id number] ####[facility] Outreach Worker: DEEPALI DOWLING ([id number])[facility])[address] [place] [address] MCHC 33.7 % Normal 30.5-36.0 [facility] Comment on above: Performed By: #### L [id number] ####[facility] Outreach Worker: DEEPALI DOWLING ([id number])[facility])[address] [place] [address] MCV (RBC) [Entitic vol] 96.1 fL Normal 77.0-99.0 [facility] Comment on above: Performed By: #### L [id number] ####Community Health Outreach Worker: DEEPALI DOWLING ([id number])[facility] ([facility])[address] [place] [address] Monocytes (Bld) [#/Vol] 0.8 10*3/uL Normal 0.0-0.9 [facility] Comment on above: Performed By: #### L [id number] ####[facility] Outreach Worker: DEEPALI DOWLING ([id number])[facility] ([facility])[address] [place] [address] Monocytes/100 WBC (Bld) 9.6 % Normal 5.0-13.0 [facility] Comment on above: Performed By: #### L [id number] ####[facility] Outreach Worker: DEEPALI DOWLING ([phone])[facility] ([facility])[address] [place] [address] NEUTROPHILS ABSOLUTE 5.1 10*3/uL Normal 1.8-7.5 [facility] Comment on above: Performed By: #### L [id number] ####[facility] Outreach Worker: DEEPALI DOWLING ([id number])[facility] ([facility])[address] [place] [address] Neutrophils/100 WBC (Bld) 60.1 % Normal 38.0-82.0 [facility] Comment on above: Performed By: #### L [id number] ####[facility] Outreach Worker: DEEPALI DOWLING ([id number])[facility] ([facility])[address] [place] [address] NRBC 0.0 /100 WBCs Normal 0.0-2.0 [facility] Comment on above: Performed By: #### L [id number] ####Community Health Outreach Worker: DEEPALI DOWLING ([phone])[facility])[address] [place] [address] Platelet mean volume (Bld) [Entitic vol] 10.0 fL Normal 9.0-12.7 [facility] Comment on above: Performed By: #### L [id number] ####Community [facility] Outreach Worker: DEEPALI DOWLING ([phone])[facility] ([facility])[address] [place] [address] Platelets (Bld) [#/Vol] 219 10*3/uL Normal 140-440 [facility] Comment on above: Performed By: #### L [id number] ####[facility] Outreach Worker: DEEPALI DOWLING ([id number])[facility] ([facility])[address] [place] [address] RBC (Bld) [#/Vol] 4.32 10*6/uL Low 4.40-5.90 [facility] Comment on above: Performed By: #### L [id number] ####Community Health Outreach Worker: DEEPALI DOWLING ([phone])[facility] ([facility])[address] [place] [address] WBC (Bld) [#/Vol] 8.4 10*3/uL Normal 3.6-10.7 [facility] Comment on above: Performed By: #### L [id number] ####Community Health Outreach Worker: DEEPALI DOWLING ([id number])[facility] ([facility])[address] [place] [address] COMPREHENSIVE METABOLIC PANE [place] 02-13-2025 Albumin [Mass/Vol] 3.5 g/dL Normal 3.4-4.8 [facility] Comment on above: Performed By: #### L [id number] ####Community [facility] Outreach Worker: DEEPALI DOWLING ([id number])[facility] ([facility])[address] [place] [address] ALP [Catalytic activity/Vol] 50 U/L Normal 40-150 [facility] Comment on above: Performed By: #### L [id number] ####Community Health Outreach Worker: DEEPALI DOWLING ([id number])[facility])[address] [place] [address] ALT [Catalytic activity/Vol] 39 U/L Normal <40 [facility] Comment on above: Performed By: #### L [id number] ####Community Health Outreach Worker: DEEPALI DOWLING ([phone])[facility])[address] [place] [address] Anion gap [Moles/Vol] 9 mmol/L Normal 3-13 [facility] Comment on above: Performed By: #### L [id number] ####Community Health Outreach Worker: DEEPALI DOWLING ([phone])[facility])[address] [place] [address] AST [Catalytic activity/Vol] 42 U/L High <34 [facility] Comment on above: Performed By: #### L [id number] ####Community Health Outreach Worker: DEEPALI DOWLING ([id number])[facility] ([facility])[address] [place] [address] Bilirubin [Mass/Vol] 0.6 mg/dL Normal <1.2 [facility] Comment on above: Performed By: #### L [id number] ####Community Health Outreach Worker: DEEPALI DOWLING ([phone])[facility])[address] [place] [address] Calcium [Mass/Vol] 9.2 mg/dL Normal 8.8-10.0 [facility] Comment on above: Performed By: #### L [id number] ####Community Health Outreach Worker: DEEPALI DOWLING ([id number])[facility] ([facility])[address] [place] [address] Chloride [Moles/Vol] 106 mmol/L Normal 98-107 [facility] Comment on above: Performed By: #### L [id number] ####Community Health Outreach Worker: DEEPALI DOWLING ([id number])[facility])[address] [place] [address] [place] CO2 [Moles/Vol] 21 mmol/L Low 23-31 [facility] Comment on above: Performed By: #### L [id number] ####Community Health Outreach Worker: DEEPALI DOWLING ([phone])[facility])[address] [place] [address] Creatinine [Mass/Vol] 0.63 mg/dL Low 0.72-1.25 [facility] Comment on above: Performed By: #### L [id number] ####Community Health Outreach Worker: DEEPALI DOWLING ([id number])[facility])[address] [place] [address] GLOMERULAR FILTRATION RATE ML/MIN/1.73 SQ M.PREDICTED >90.0 Normal >60.0 [facility] Comment on above: Result Comment: Calc ulation based on the Chronic Kidney Disease Epidemiology Collaboration (CKD-EPI) equation refit without adjustment for race Performed By: #### L [id number] ####Community Health Outreach Worker: DEEPALI DOWLING ([id number])[facility])[address] [place] [address] Glucose [Mass/Vol] 105 mg/dL Normal 82-115 [facility] Comment on above: Performed By: #### L [id number] ####Community Health Outreach Worker: DEEPALI DOWLING ([id number])[address] Potassium [Moles/Vol] 4.2 mmol/L Normal 3.5-5.1 [facility] Comment on above: Result Comment: Plas ma potassium values may be up to 0.5 mmol/L lower than serum values. Performed By: #### L [id number] ####Community Health Outreach Worker: DEEPALI DOWLING ([id number])[facility])[address] [place] [address] Protein [Mass/Vol] 6.8 g/dL Normal 6.4-8.3 [facility] Comment on above: Performed By: #### L [id number] ####Community Health Outreach Worker: DEEPALI DOWLING ([id number])[facility])[address] [place] [address] Sodium [Moles/Vol] 136 mmol/L Normal 136-145 [facility] Comment on above: Performed By: #### L [id number] ####Community Health Outreach Worker: DEEPALI DOWLING ([phone])[place] [address] [place] Urea nitrogen [Mass/Vol] 19 mg/dL Normal 9-23 [facility] Comment on above: Performed By: #### L [id number] ####Community Health Outreach Worker: DEEPALI DOWLING ([id number])[facility] ([facility])[address] [place] [address] Comprehensive metabolic 1998 panelon 02-13-2025 Albumin [Mass/Vol] 3.5 g/dL 3.4 - 4.8 g/dL [facility] ALP [Catalytic activity/Vol] 50 U/L 40 - 150 U/L [facility] ALT [Catalytic activity/Vol] 39 U/L NINF - 40 U/L [facility] Anion gap [Moles/Vol] 9 mmol/L 3 - 13 mmol/L [facility] AST [Catalytic activity/Vol] 42 U/L High NINF - 34 U/L [facility] Bilirubin [Mass/Vol] 0.6 mg/dL NINF - 1.2 mg/dL [facility] Calcium [Mass/Vol] 9.2 mg/dL 8.8 - 10. 0 mg/dL [facility] Chloride [Moles/Vol] 106 mmol/L 98 - 107 mmol/L [facility] CO2 [Moles/Vol] 21 mmol/L Low 23 - 31 mmol/L [facility] Creatinine [Mass/Vol] 0.63 mg/dL Low 0.72 - 1.25 mg/dL [facility] GFR/1.73 sq M.predicted (S/P/Bld) [Vol rate/Area] - PINF [facility] Comment on above: Calculation based on the Chronic Kidney Disease Epidemiology Collaboration (CKD-EPI) equation refit without adjustment for race Glucose [Mass/Vol] 105 mg/dL 82 - 115 mg/dL [facility] Interpretation and review of laboratory results Abnormal [facility] Potassium [Moles/Vol] 4.2 mmol/L 3.5 - 5.1 mmol/L [facility] Comment on above: Plasma potassium carissa ues may be up to 0.5 mmol/L lower than serum values. Protein [Mass/Vol] 6.8 g/dL 6.4 - 8.3 g/dL [facility] Sodium [Moles/Vol] 136 mmol/L 136 - 145 mmol/L [facility] Urea nitrogen [Mass/Vol] 19 mg/dL 9 - 23 mg/dL [facility] Laboratory - Chemistry and C hemistry - challengeon 02-13-2025 Prostate specific Ag [Mass/Vol] 8.814 ng/mL High NINF - 0.200 ng/mL [facility] No Panel Informationon 02-13 Interpretation and review of laboratory results Abnormal [facility] [email or web address] Testing performed on the Say2me I using a two-step chemiluminescent microparticle immunoassay method. Results obtained by different methods should not be used interchangeably. A prostate specific antigen of >0.2 ng/mL is considered as initial evidence of biochemical recurrence following radical prostatectomy. [facility] Office Visiton 02-13-2025 Follow-up visit [id number] Izabela London 1940 M Date Provider Department Center 02/13/2025 [id number] CAMILO [facility] ONC None Family History Problem Relation Age of Onset Cancer Father 77 Comments: Colon Family Status - Relation Status Age at Father Level of Service:30673 OK OFFICE/OUTPATIENT ESTABLISHED MOD [facility] 30 MIN Reason for Visit and Comments: Follow-up [206092] Normal [facility] PSA TOTAL (DIAGNOSTIC POST-P ROSTATECTOMY)on 02-13-2025 PROSTATE SPECIFIC AG TOTAL 8.814 ng/mL High <=0.200 [facility] Comment on above: Result Comment: YANETH Ding COMMENTS: Testing performed on the Say2me I using a two-step chemiluminescent microparticle immunoassay method. Results obtained by different methods should not be used interchangeably. A prostate specific antigen of >0.2 ng/mL is considered as initial evidence of biochemical recurrence following radical prostatectomy. Performed By: #### L [id number] ####Community [facility] Outreach Worker: DEEPALI DOWLING ([phone])[address] Progress Noteon 02-13-2025 Progress Note Pt arrived ambulator y from [place] with Dr. Uriasfor C11 D1 and tx 11 Zometa infusion/Zoladex injection today. Pt notes knee pain is 3/10. CBC/PSA/CMP drawn via PIV and sent to [facility] at [facility]. See toxicity assessment. Pt denies any dental procedures in the past few months and denies any jaw pain/swelling. 1221- Pt tolerated infusion and injection in LLQ well and without incident. Pt discharged home without complication. Aware of next appt date/time. Normal [facility] Progress Note Patient ID: Izabela London [...] abnormal data PSA Total (Diagnostic Post-Prostatectomy) Order: [id number] Status: Final result Visible to patient: Yes (seen) Next appt: Today at 11:00 AM in Infusion Therapy (CHAIR 23) Dx: Malignant neoplasm metastatic to bone... 0 Result Notes Component Ref Range & Units 2 mo ago 5 mo ago PSA Total <=0.200 ng/mL 5.100 High 1.608 R Resulting Agency [facility] SAC Narrative Performed by: [facility] Testing performed on the [employer] using a two-step chemiluminescent microparticle immunoassay method. [...] of 02/14/25 Electronically signed Kristen Urias MD [facility] 37on 02-12-2025 37 Annual exam after on year. Jeramie Ching MD Personalized Preventative Plan [...] Recommendations: A preventive eye exam by an phlebotomy specialist is recommended every 1-2 years to screen for glaucoma, cataracts, macular degeneration, and other eye disorders. A preventive dental visit is recommended every 6 months. Try to get at least 150 minutes of exercise per week or 10,000 steps per day on a pedometer. You need 1200-1500mg of calcium and [id number] international units of vitamin D per day. [...] riding a bicycle or a motorcycle Normal [facility] Office Visiton 02-12-2025 Follow-up visit [id number] Izabela London 1940 M [facility] Provider Department Center 02/12/2025 [id number] Stacey GUILLERMO Family History Problem Relation Age of Onset Cancer Father 77 Comments: Colon Family Status - Relation Status Age at Father Level of Service:G0439 [place] PPPS, SUBSEQ VISIT Reason for Visit and Comments: Medicare Annual Wellness Visit Subsequent [857] Normal [facility] Progress Noteon 02-12-2025 Progress Note [facility] - [address] [facility] [address] Dept: [phone] Dept Chief Complaint: Izbaela London is an 85 y.o. 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 [facility] 02-09-2025 36 Called patient to confirm tomorrow's appointment. No answer. Unable to leave message. [facility] 12-14-2024 36 Medication name: simvastatin (Zocor) Medication dosage: 20 mg (Miligrams Monthly quantity needed: 30 How many day supply requestin days Medication route: oral (PO) Medication administration time(s): daily If taking medication PRN, reason for taking medication: N/A If this is a controlled substance do you receive this or any other controlled medication from any other doctor or facility: No Ordering provider: [facility] Date of last office visit: 10/03/24 Date of next office visit: 02/12/25 Date of last refill: (see medication tab): 12/08/23 Updated/Validated preferred pharmacy: Yes Patient instructed to contact the pharmacy prior to picking up the medication: No Normal [facility] 36on 11-29-2024 36 [facility] Oncology Care Plan SUBJECTIVE Izabela London is a 84 year old Male who was referred to [facility] for clinical management services for [...] No questions or concerns at this time. [facility] will continue to provide clinical pharmacy services and coordinate refills/deliveries with the patient. Delivery scheduled for 12/04/24. F/U ~ 6 months or as clinically indicated Bhanu Diaz, PharmD, [facility] Clinical Specialty Pharmacist [phone] Normal [facility] CBC W Auto Differential pane l (Bld)on 11-21-2024 Basophils (Bld) [#/Vol] 0 10*3/uL 0.0 - 0.2 10*3/uL [facility] Basophils/100 WBC (Bld) 0.4 % 0.0 - 2.0 % [facility] Eosinophils (Bld) [#/Vol] 0.2 10*3/uL 0.0 - 0.5 10*3/uL [facility] Eosinophils/100 WBC (Bld) 2.2 % 0.0 - 6.0 % [facility] Erythrocyte distribution width (RBC) [Ratio] 13.4 % 11.5 - 15.0 % [facility] Hematocrit (Bld) [Volume fraction] 39.6 % Low 40.0 - 52.0 % [facility] Hemoglobin (Bld) [Mass/Vol] 13.4 g/dL 13.0 - 18.0 g/dL [facility] Immature granulocytes (Bld) [#/Vol] 0 10*3/uL NINF - 0.1 10*3/uL [facility] Immature granulocytes/100 WBC (Bld) 0.2 % 0.0 - 2.0 % [facility] Interpretation and review of laboratory results Abnormal [facility] Lymphocytes (Bld) [#/Vol] 2 10*3/uL 1.0 - 4.3 10*3/uL [facility] Lymphocytes/100 WBC (Bld) 22.3 % 15.0 - 45.0 % [facility] MCH (RBC) [Entitic mass] 32.4 pg 26.0 - 34.[address] [facility] MCHC (RBC) [Mass/Vol] 33.8 % 30.5 - 36.0 % [facility] MCV (RBC) [Entitic vol] 95.7 fL 77.0 - 99.[address] [facility] Monocytes (Bld) [#/Vol] 0.9 10*3/uL 0.0 - 0.9 10*3/uL [facility] Monocytes/100 WBC (Bld) 9.7 % 5.0 - 13.0 % [facility] Neutrophils (Bld) [#/Vol] 6 10*3/uL 1.8 - 7.5 10*3/uL [facility] Neutrophils/100 WBC (Bld) 65.2 % 38.0 - 82.0 % [facility] Nucleated RBC/100 WBC (Bld) [Ratio] 0 % [facility] Platelet mean volume (Bld) [Entitic vol] 10.2 fL 9.0 - 12.[address] [facility] Platelets (Bld) [#/Vol] 272 10*3/uL 140 - 440 10*3/uL [facility] RBC (Bld) [#/Vol] 4.14 10*6/uL Low 4.40 - 5.9 0 10*6/uL [facility] WBC (Bld) [#/Vol] 9.2 10*3/uL 3.6 - 10.7 10*3/uL [facility] CBC WITH AUTO DIFFERENTIALon 11-21-2024 Basophils (Bld) [#/Vol] 0.0 10*3/uL Normal 0.0-0.2 [facility] Comment on above: Performed By: #### L [id number] ####Community Health Outreach Worker: DEEPALI DOWLING ([phone])[facility])[address] [place] [address] Basophils/100 WBC (Bld) 0.4 % Normal 0.0-2.0 [facility] Comment on above: Performed By: #### L [id number] ####Community Health Outreach Worker: DEEPALI DOWLING ([id number])[facility])[address] [place] [address] Eosinophils (Bld) [#/Vol] 0.2 10*3/uL Normal 0.0-0.5 [facility] Comment on above: Performed By: #### L [id number] ####Community Health Outreach Worker: DEEPALI DOWLING ([id number])[facility] ([facility])[address] [place] [address] Eosinophils/100 WBC (Bld) 2.2 % Normal 0.0-6.0 [facility] Comment on above: Performed By: #### L [id number] ####[facility] Outreach Worker: DEEPALI DOWLING ([phone])[facility])[address] [place] [address] Erythrocyte distribution width (RBC) [Ratio] 13.4 % Normal 11.5-15.0 [facility] Comment on above: Performed By: #### L [id number] ####[facility] Outreach Worker: DEEPALI DOWLING ([id number])[facility])[address] [place] [address] Hematocrit (Bld) [Volume fraction] 39.6 % Low 40.0-52.0 [facility] Comment on above: Performed By: #### L [id number] ####[facility] Outreach Worker: DEEPALI DOWLING ([phone])[facility])[address] [place] [address] Hemoglobin (Bld) [Mass/Vol] 13.4 g/dL Normal 13.0-18.0 [facility] Comment on above: Performed By: #### L [id number] ####[facility] Outreach Worker: DEEPALI DOWLING ([id number])[facility])[address] [place] [address] IMMATURE GRANS % 0.2 % Normal 0.0-2.[address] [facility] Comment on above: Performed By: #### L [id number] ####Community Health Outreach Worker: DEEPALI DOWLING ([phone])[facility])[address] [place] [address] IMMATURE GRANS ABSOLUTE 0.0 10*3/uL Normal <0.1 [facility] Comment on above: Performed By: #### L [id number] ####Community Health Outreach Worker: DEEPALI DOWLING ([phone])[facility])[address] [place] [address] Lymphocytes (Bld) [#/Vol] 2.0 10*3/uL Normal 1.0-4.3 [facility] Comment on above: Performed By: #### L [id number] ####[facility] Outreach Worker: DEEPALI DOWLING ([id number])[facility])[address] [place] [address] Lymphocytes/100 WBC (Bld) 22.3 % Normal 15.0-45.0 [facility] Comment on above: Performed By: #### L [id number] ####[facility] Outreach Worker: DEEPALI DOWLING ([id number])[facility])[address] [place] [address] MCH (RBC) [Entitic mass] 32.4 pg Normal 26.0-34.0 [facility] Comment on above: Performed By: #### L [id number] ####[facility] Outreach Worker: DEEPALI DOWLING ([id number])[facility])[address] [place] [address] MCHC 33.8 % Normal 30.5-36.0 [facility] Comment on above: Performed By: #### L [id number] ####[facility] Outreach Worker: DEEPALI DOWLING ([id number])[facility])[address] [place] [address] MCV (RBC) [Entitic vol] 95.7 fL Normal 77.0-99.0 [facility] Comment on above: Performed By: #### L [id number] ####[facility] Outreach Worker: DEEPALI DOWLING ([id number])[facility])[address] [place] [address] Monocytes (Bld) [#/Vol] 0.9 10*3/uL Normal 0.0-0.9 [facility] Comment on above: Performed By: #### L [id number] ####[facility] Outreach Worker: DEEPALI DOWLING ([id number])[facility])[address] [place] [address] Monocytes/100 WBC (Bld) 9.7 % Normal 5.0-13.0 [facility] Comment on above: Performed By: #### L [id number] ####[facility] Outreach Worker: DEEPALI DOWLING ([phone])[facility])[address] [place] [address] NEUTROPHILS ABSOLUTE 6.0 10*3/uL Normal 1.8-7.5 [facility] Comment on above: Performed By: #### L [id number] ####Community Health Outreach Worker: DEEPALI DOWLING ([id number])[facility])[address] [place] [address] Neutrophils/100 WBC (Bld) 65.2 % Normal 38.0-82.0 [facility] Comment on above: Performed By: #### L [id number] ####[facility] Outreach Worker: DEEPALI DOWLING ([phone])[facility])[address] [place] [address] NRBC 0.0 /100 WBCs Normal 0.0-2.0 [facility] Comment on above: Performed By: #### L [id number] ####Community Health Outreach Worker: DEEPALI DOWLING ([id number])[facility] ([facility])[address] [place] [address] Platelet mean volume (Bld) [Entitic vol] 10.2 fL Normal 9.0-12.7 [facility] Comment on above: Performed By: #### L [id number] ####[facility] Outreach Worker: DEEAPLI DOWLING ([id number])[facility] ([facility])[address] [place] [address] Platelets (Bld) [#/Vol] 272 10*3/uL Normal 140-440 [facility] Comment on above: Performed By: #### L [id number] ####[facility] Outreach Worker: DEEPALI DOWLING ([phone])[facility] ([facility])[address] [place] [address] RBC (Bld) [#/Vol] 4.14 10*6/uL Low 4.40-5.90 [facility] Comment on above: Performed By: #### L [id number] ####[facility] Outreach Worker: DEEPALI DOWLING ([id number])[facility] ([facility])[address] [place] [address] WBC (Bld) [#/Vol] 9.2 10*3/uL Normal 3.6-10.7 [facility] Comment on above: Performed By: #### L [id number] ####[facility] Outreach Worker: DEEPALI DOWLING ([id number])[facility])[address] [place] [address] Basophils (Bld) [#/Vol] 0.1 10*3/uL Normal 0.0-0.2 [facility] Comment on above: Performed By: #### L [id number] ####[facility] Outreach Worker: DEEPALI DOWLING ([id number])[facility])[address] [place] [address] Basophils/100 WBC (Bld) 0.7 % Normal 0.0-2.0 [facility] Comment on above: Performed By: #### L [id number] ####[facility] Outreach Worker: DEEPALI DOWLING ([id number])[facility])[address] [place] [address] Eosinophils (Bld) [#/Vol] 0.2 10*3/uL Normal 0.0-0.5 [facility] Comment on above: Performed By: #### L [id number] ####[facility] Outreach Worker: DEEPALI DOWLING ([phone])[facility])[address] [place] [address] Eosinophils/100 WBC (Bld) 2.5 % Normal 0.0-6.0 [facility] Comment on above: Performed By: #### L [id number] ####[facility] Out[facility] Worker: DEEPALI DOWLING ([phone])[address] Erythrocyte distribution width (RBC) [Ratio] 13.2 % Normal 11.5-15.0 [facility] Comment on above: Performed By: #### L [id number] ####[facility] Outreach Worker: DEEPALI DOWLING ([phone])[facility])[address] [place] [address] Hematocrit (Bld) [Volume fraction] 41.8 % Normal 40.0-52.0 [facility] Comment on above: Performed By: #### L [id number] ####[facility] Worker: DEEPALI DOWLING ([id number])[address] Hemoglobin (Bld) [Mass/Vol] 13.4 g/dL Normal 13.0-18.0 [facility] Comment on above: Performed By: #### L [id number] ####Community Health Outreach Worker: DEEPALI DOWLING ([phone])[facility])[address] [place] [address] IMMATURE GRANS % 0.3 % Normal 0.0-2.[address] [facility] Comment on above: Performed By: #### L [id number] ####Community Health Outreach Worker: DEEPALI DOWLING ([id number])[address] IMMATURE GRANS ABSOLUTE 0.0 10*3/uL Normal <0.[address] [facility] Comment on above: Performed By: #### L [id number] ####Community Health Outreach Worker: DEEPALI DOWLING ([phone])[facility])[address] [place] [address] Lymphocytes (Bld) [#/Vol] 2.0 10*3/uL Normal 1.0-4.[address] [facility] Comment on above: Performed By: #### L [id number] ####Community Health Outreach Worker: DEEPALI DOWLING ([phone])[facility])[address] [place] [address] Lymphocytes/100 WBC (Bld) 22.4 % Normal 15.0-45.[address] [facility] Comment on above: Performed By: #### L [id number] ####Community Health Outreach Worker: DEEPALI DOWLING ([phone])[facility])[address] [place] [address] MCH (RBC) [Entitic mass] 31.9 pg Normal 26.0-34.[address] [facility] Comment on above: Performed By: #### L [id number] ####Community Health Outreach Worker: DEEPALI DOWLING ([id number])[facility])[address] [place] [address] MCHC 32.1 % Normal 30.5-36.[address] [facility] Comment on above: Performed By: #### L [id number] ####Community Health Outreach Worker: DEEPALI DOWLING ([phone])[facility])[address] [place] [address] MCV (RBC) [Entitic vol] 99.5 fL High 77.0-99.0 [facility] Comment on above: Performed By: #### L [id number] ####Community Health Outreach Worker: DEEPALI DOWLING ([phone])[facility])[address] [place] [address] Monocytes (Bld) [#/Vol] 0.8 10*3/uL Normal 0.0-0.9 [facility] Comment on above: Performed By: #### L [id number] ####Community Health Outreach Worker: DEEPALI DOWLING ([phone])[facility])[address] [place] [address] Monocytes/100 WBC (Bld) 9.4 % Normal 5.0-13.0 [facility] Comment on above: Performed By: #### L [id number] ####Community Health Outreach Worker: DEEPALI DOWLING ([phone])[facility] ([facility])[address] [place] [address] NEUTROPHILS ABSOLUTE 5.7 10*3/uL Normal 1.8-7.5 [facility] Comment on above: Performed By: #### L [id number] ####Community Health Outreach Worker: DEEPALI DOWLING ([id number])[facility])[address] [place] [address] Neutrophils/100 WBC (Bld) 64.7 % Normal 38.0-82.0 [facility] Comment on above: Performed By: #### L [id number] ####Community Health Outreach Worker: DEEPALI DOWLING ([id number])[facility] ([facility])[address] [place] [address] NRBC 0.0 /100 WBCs Normal 0.0-2.0 [facility] Comment on above: Performed By: #### L [id number] ####Community Health Outreach Worker: DEEPALI DOWLING ([id number])[facility])[address] [place] [address] Platelet mean volume (Bld) [Entitic vol] 10.4 fL Normal 9.0-12.7 [facility] Comment on above: Performed By: #### L [id number] ####Community Health Outreach Worker: DEEPALI DOWLING ([id number])[facility])[address] [place] [address] Platelets (Bld) [#/Vol] 303 10*3/uL Normal 140-440 [facility] Comment on above: Performed By: #### L [id number] ####Community Health Outreach Worker: DEEPALI [id number])[facility] ([facility])[address] [place] [address] RBC (Bld) [#/Vol] 4.20 10*6/uL Low 4.40-5.90 [facility] Comment on above: Performed By: #### L [id number] ####Community Health Outreach Worker: DEEPALI DOWLING ([id number])[facility] ([facility])[address] [place] [address] WBC (Bld) [#/Vol] 8.8 10*3/uL Normal 3.6-10.7 [facility] Comment on above: Performed By: #### L [id number] ####Community Health Outreach Worker: DEEPALI DOWLING ([id number])[facility] ([facility])[address] [place] [address] COMPREHENSIVE METABOLIC PANE Barrie 11-21-2024 Albumin [Mass/Vol] 3.5 g/dL Normal 3.4-4.8 [facility] Comment on above: Performed By: #### L [id number] ####Community Health Outreach Worker: DEEPALI DOWLING ([id number])[facility] ([facility])[address] [place] [address] ALP [Catalytic activity/Vol] 50 U/L Normal 40-150 [facility] Comment on above: Performed By: #### L [id number] ####Community Health Outreach Worker: DEEPALI DOWLING ([id number])[facility])[address] [place] [address] ALT [Catalytic activity/Vol] 47 U/L High <40 [facility] Comment on above: Performed By: #### L [id number] ####Community Health Outreach Worker: DEEPALI DOWLING ([phone])[facility])[address] [place] [address] Anion gap [Moles/Vol] 8 mmol/L Normal 3-13 [facility] Comment on above: Performed By: #### L [id number] ####Community Health Outreach Worker: DEEPALI DOWLING ([phone])[facility] ([facility])[address] [place] [address] AST [Catalytic activity/Vol] 55 U/L High <34 [facility] Comment on above: Performed By: #### L [id number] ####Community Health Outreach Worker: DEEPALI DOWLING ([phone])[facility])[address] [place] [address] Bilirubin [Mass/Vol] 0.6 mg/dL Normal <1.2 [facility] Comment on above: Performed By: #### L [id number] ####Community Health Outreach Worker: DEEPALI DOWLING ([id number])[facility])[address] [place] [address] Calcium [Mass/Vol] 9.5 mg/dL Normal 8.8-10.0 [facility] Comment on above: Performed By: #### L [id number] ####Community Health Outreach Worker: DEEPALI DOWLING ([phone])[facility])[address] [place] [address] Chloride [Moles/Vol] 104 mmol/L Normal 98-107 [facility] Comment on above: Performed By: #### L [id number] ####Community Health Outreach Worker: DEEPALI DOWLING ([id number])[facility])[address] [place] [address] CO2 [Moles/Vol] 26 mmol/L Normal 23-31 [facility] Comment on above: Performed By: #### L [id number] ####Community Health Outreach Worker: DEEPALI DOWLING ([id number])[facility])[address] [place] [address] Creatinine [Mass/Vol] 0.64 mg/dL Low 0.72-1.25 [facility] Comment on above: Performed By: #### L [id number] ####Community Health Outreach Worker: DEEPALI DOWLING ([id number])[facility])[address] [place] [address] GLOMERULAR FILTRATION RATE ML/MIN/1.73 SQ M.PREDICTED >90.0 Normal >60.0 [facility] Comment on above: Result Comment: Calc ulation based on the Chronic Kidney Disease Epidemiology Collaboration (CKD-EPI) equation refit without adjustment for race Performed By: #### L [id number] ####Community Health Outreach Worker: DEEPALI DOWLING ([id number])[facility] ([facility])[address] [place] [address] [place] Glucose [Mass/Vol] 104 mg/dL Normal 82-115 [facility] Comment on above: Performed By: #### L [id number] ####Community Health Outreach Worker: DEEPALI DOWLING ([id number])[facility] ([facility])[address] [place] [address] [place] Potassium [Moles/Vol] 4.1 mmol/L Normal 3.5-5.1 [facility] Comment on above: Result Comment: Plas ma potassium values may be up to 0.5 mmol/L lower than serum values. Performed By: #### L [id number] ####Community Health Outreach Worker: DEEPALI DOWLING ([id number])[facility] ([facility])[address] [place] [address] Protein [Mass/Vol] 6.7 g/dL Normal 6.4-8.3 [facility] Comment on above: Performed By: #### L [id number] ####Community Health Outreach Worker: DEEPALI DOWLING ([id number])[facility] ([facility])[address] [place] [address] [place] Sodium [Moles/Vol] 138 mmol/L Normal 136-145 [facility] Comment on above: Performed By: #### L [id number] ####Community Health Outreach Worker: DEEPALI DOWLING ([phone])[facility])[address] [place] [address] [place] Urea nitrogen [Mass/Vol] 17 mg/dL Normal 9-23 [facility] Comment on above: Performed By: #### L [id number] ####Community Health Outreach Worker: DEEPALI DOWLING ([phone])[facility])[address] [place] [address] [place] Albumin [Mass/Vol] 3.5 g/dL Normal 3.4-4.8 [facility] Comment on above: Performed By: #### L [id number] ####Community Health Outreach Worker: DEEPALI DOWLING ([id number])[facility])[address] [place] [address] [place] ALP [Catalytic activity/Vol] 50 U/L Normal 40-150 [facility] Comment on above: Performed By: #### L [id number] ####Community Health Outreach Worker: DEEPALI DOWLING ([id number])[facility] ([facility])[address] [place] [address] ALT [Catalytic activity/Vol] 45 U/L High <40 [facility] Comment on above: Performed By: #### L [id number] ####Community Health Outreach Worker: DEEPALI DOWLING ([id number])[facility] ([facility])[address] [place] [address] Anion gap [Moles/Vol] 9 mmol/L Normal 3-13 [facility] Comment on above: Performed By: #### L [id number] ####Community Health Outreach Worker: DEEPALI DOWLING ([id number])[facility] ([facility])[address] [place] [address] AST [Catalytic activity/Vol] 54 U/L High <[address] [facility] Comment on above: Performed By: #### L [id number] ####Community Health Outreach Worker: DEEPALI DOWLING ([id number])[facility] ([facility])[address] [place] [address] Bilirubin [Mass/Vol] 0.6 mg/dL Normal <1.2 [facility] Comment on above: Performed By: #### L [id number] ####Community Health Outreach Worker: DEEPALI DOWLING ([id number])[facility])[address] [place] [address] Calcium [Mass/Vol] 9.0 mg/dL Normal 8.8-10.0 [facility] Comment on above: Performed By: #### L [id number] ####Community Health Outreach Worker: DEEPALI DOWLING ([id number])[facility])[address] [place] [address] Chloride [Moles/Vol] 105 mmol/L Normal 98-107 [facility] Comment on above: Performed By: #### L [id number] ####Community Health Outreach Worker: DEEPALI DOWLING ([id number])[facility] ([facility])[address] [place] [address] CO2 [Moles/Vol] 25 mmol/L Normal 23-31 [facility] Comment on above: Performed By: #### L [id number] ####Community Health Outreach Worker: DEEPALI DOWLING ([id number])[facility] ([facility])[address] [place] [address] Creatinine [Mass/Vol] 0.57 mg/dL Low 0.72-1.25 [facility] Comment on above: Performed By: #### L [id number] ####Community Health Outreach Worker: DEEPALI DOWLING ([phone])[facility])[address] [place] [address] GLOMERULAR FILTRATION RATE ML/MIN/1.73 SQ M.PREDICTED >90.0 Normal >60.0 [facility] Comment on above: Result Comment: Calc ulation based on the Chronic Kidney Disease Epidemiology Collaboration (CKD-EPI) equation refit without adjustment for race Performed By: #### L [id number] ####Community Health Outreach Worker: DEEPALI DOWLING ([id number])[facility] ([facility])[address] [place] [address] Glucose [Mass/Vol] 93 mg/dL Normal 82-115 [facility] Comment on above: Performed By: #### L [id number] ####Community Health Outreach Worker: DEEPALI DOWLING ([phone])[facility])[address] [place] [address] Potassium [Moles/Vol] 4.5 mmol/L Normal 3.5-5.1 [facility] Comment on above: Result Comment: Plas ma potassium values may be up to 0.5 mmol/L lower than serum values. Performed By: #### L [id number] ####Community Health Outreach Worker: DEEPALI DOWLING ([id number])[facility])[address] [place] [address] Protein [Mass/Vol] 6.2 g/dL Low 6.4-8.3 [facility] Comment on above: Performed By: #### L [id number] ####Community Health Outreach Worker: DEEPALI DOWLING ([id number])[facility] ([facility])[address] [place] [address] Sodium [Moles/Vol] 139 mmol/L Normal 136-145 [facility] Comment on above: Performed By: #### L [id number] ####Community Health Outreach Worker: DEEPALI DOWLING ([id number])[facility] ([facility])[address] [place] [address] Urea nitrogen [Mass/Vol] 17 mg/dL Normal 9-23 [facility] Comment on above: Performed By: #### L [id number] ####Community Health Outreach Worker: DEEPALI DOWLING ([phone])[facility] ([facility])[address] [place] [address] Comprehensive metabolic 1998 panelon 11-21-2024 Albumin [Mass/Vol] 3.5 g/dL 3.4 - 4.8 g/dL [facility] ALP [Catalytic activity/Vol] 50 U/L 40 - 150 U/L [facility] ALT [Catalytic activity/Vol] 47 U/L High NINF - 40 U/L [facility] Anion gap [Moles/Vol] 8 mmol/L 3 - 13 mmol/L [facility] AST [Catalytic activity/Vol] 55 U/L High [facility] - 34 U/L [facility] Bilirubin [Mass/Vol] 0.6 mg/dL [facility] - 1.[facility] mg/dL [facility] Calcium [Mass/Vol] 9.5 mg/dL 8.8 - 10. 0 mg/dL [facility] Chloride [Moles/Vol] 104 mmol/L 98 - 107 mmol/L [facility] CO2 [Moles/Vol] 26 mmol/L 23 - 31 mmol/L [facility] Creatinine [Mass/Vol] 0.64 mg/dL Low 0.72 - 1.25 mg/dL [facility] GFR/1.73 sq M.predicted (S/P/Bld) [Vol rate/Area] - PINF [facility] Comment on above: Calculation based on the Chronic Kidney Disease Epidemiology Collaboration (CKD-EPI) equation refit without adjustment for race Glucose [Mass/Vol] 104 mg/dL 82 - 115 mg/dL [facility] Interpretation and review of laboratory results Abnormal [facility] Potassium [Moles/Vol] 4.1 mmol/L 3.5 - 5.1 mmol/L [facility] Comment on above: Plasma potassium carissa ues may be up to 0.5 mmol/L lower than serum values. Protein [Mass/Vol] 6.7 g/dL 6.4 - 8.3 g/dL [facility] Sodium [Moles/Vol] 138 mmol/L 136 - 145 mmol/L [facility] Urea nitrogen [Mass/Vol] 17 mg/dL 9 - 23 mg/dL [facility] Laboratory - Chemistry and C hemistry - challengeon 11-21-2024 Prostate specific Ag [Mass/Vol] 5.1 ng/mL High NINF - 0.200 ng/mL [facility] No Panel Informationon 11-21 Interpretation and review of laboratory results Abnormal [facility] Testing performed on the [employer] using a two-step chemiluminescent microparticle immunoassay method. Results obtained by different methods should not be used interchangeably. A prostate specific antigen of >0.2 ng/mL is considered as initial evidence of biochemical recurrence following radical prostatectomy. [facility] Office Visiton 11-21-2024 Follow-up visit [id number] Izabela London 1940 M Date Provider Department Center 11/21/2024 [id number] URIAS [facility]C None Family History Problem Relation Age of Onset Cancer Father 77 Comments: Colon Family Status - Relation Status Age at Father Level of Service:42437 [place] OFFICE/OUTPATIENT ESTABLISHED MOD [facility] 30 MIN Reason for Visit and Comments: Follow-up [[id number]] Normal [facility] PSA TOTAL (DIAGNOSTIC POST-P ROSTATECTOMY)on 11-21-2024 PROSTATE SPECIFIC AG TOTAL 5.100 ng/mL High <=0.200 [facility] Comment on above: Result Comment: YANETH R COMMENTS: Testing performed on the [employer] using a two-step chemiluminescent microparticle immunoassay method. Results obtained by different methods should not be used interchangeably. A prostate specific antigen of >0.2 ng/mL is considered as initial evidence of biochemical recurrence following radical prostatectomy. Performed By: #### L [id number] ####Community Health Outreach Worker: DEEPALI DOWLING ([id number])[facility] ([facility])[address] [place] [address] PSA TOTAL (SCREENING)on 10-26 PROSTATE SPECIFIC AG SCREEN 4.930 ng/mL High <=4.000 [facility] Comment on above: Result Comment: YANETH [...] out. METHODOLOGY: Chemiluminescent Microparticle Immunoassay (CMIA) ANALYZER: 51eduniNotifo I Performed By: #### L [id number] ####[facility] Health Outreach Worker: DEEPALI DOWLING ([phone])[facility] ([facility])[address] [place] [address] Progress Noteon 11-21-2024 Progress Note Pt arrived for zoladex/zometa q12 weeks. PIV placed. CBC/CMP/PSA drawn from PIV and sent to [facility]. Pt reports feeling well. No concerns at this time. Denies any jaw/dental pain and no upcoming dental work. 1242: Ordered treatment completed. Patient discharged without any issues. Patient has a copy of next infusion appointment and verbalizes understanding. All questions answered. Normal [facility] Progress Note Patient here to see Dr. Urias 1-Lav, 2-5ML SST drawn, 1 stick Labs sent to [facility] Progress Note Patient ID: Izabela London [...] to this encounter. Plan as of 11/21/24 [facility] 37on 10-03-2024 37 Follow up with onckerry fairchild as scheduled. Follow up in January with me as scheduled. Jeramie Ching MD [facility] Office Visiton 10-03-2024 Follow-up visit [id number] Izabela London 1940 M Date Provider Department Center 10/03/2024 [id number] [facility] Family History Problem Relation Age of Onset Cancer Father 77 Comments: Colon Family Status - Relation Status Age at Father Level of Service:67709 [place] OFFICE/OUTPATIENT ESTABLISHED LOW [facility] 20 MIN Reason for Visit and Comments: Follow-up [[id number]] Med Refill [[id number]] - Lisinopril and carvedilol [facility] Progress Noteon 10-03-2024 Progress Note Subjective Patient [...] by mouth daily. 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 Follow up with oncology as scheduled. Follow up in January with me as scheduled. Jeramie Ching MD [facility] 36on 09-18-2024 36 Called pt and he wou ld like the handicap placard mailed to him. Advised him we would mail it tomorrow and he voiced understanding. Normal [facility] 36 Patient called to hernan cleaning a new prescription for a handicap placard. Normal [facility] Laboratory - Chemistry and C hemistry - challengeon 08-31-2024 Prostate specific Ag [Mass/Vol] 1.608 ng/mL NINF - 4.000 ng/mL [facility] No Panel Informationon 08-31 Interpretation and review of laboratory results Normal [facility] Testing performed on the [employer] using the chemiluminescent microparticle immunoassay method. Results obtained by different methods should not be used interchangeably. PSA result is based on a new assay run on a new instrument and the results may not be comparable with assays run prior to 07/13/2023. [facility] Office Visiton 08-29-2024 Follow-up visit [id number] Izabela London 1940 Date Provider Department Center 08/29/2024 [id number] URIAS [facility] ONC None Family History Problem Relation Age of Onset Cancer Father 77 Comments: Colon Family Status - Relation Status Age at Father Level of Service:33988 [place] OFFICE/OUTPATIENT ESTABLISHED MOD M[facility] 30 MIN Reason for Visit and Comments: Follow-up [[id number]] Normal [facility] PSA TOTAL (DIAGNOSTIC POST-P ROSTATECTOMY)on 08-29-2024 PROSTATE SPECIFIC AG TOTAL 1.608 ng/mL Normal <4.000 [facility] Comment on above: Result Comment: YANETH Ding COMMENTS: Testing performed on the Say2me i using the chemiluminescent microparticle immunoassay method. Results obtained by different methods should not be used interchangeably. PSA result is based on a new assay run on a new instrument and the results may not be comparable with assays run prior to 07/13/2023. Performed By: #### L [id number] ####Community Health Outreach Worker: DEEPALI DOWLING ([phone])[facility] [place] [address] Progress Noteon 08-29-2024 Progress Note Pt arrives [...] via wheelchair in no acute distress. Normal [facility] Progress Note Patient ID: Izabela London [...] to this encounter. Plan as of 08/29/24 [facility] 36on 08-18-2024 36 Recent Visits Date Type Provider Dept 07/20/24 Office Visit MD Yves Oliveira [facility] 02/07/24 Office Visit MD Santana lOiveira 12/22/23 Office Visit MD Yves Oliveira [facility] Showing recent visits within past 365 days and meeting all other requirements Future Appointments Date Type Provider Dept 10/09/24 Appointment Jeramie Ching MD [facility] Showing future appointments within next 90 [...] showing no refills in chart): Yes Normal [facility] CBC W Auto Differential pane l (Bld)on 06-24-2024 Basophils (Bld) [#/Vol] 0.0 10*3/uL 0.0 - 0.2 10*3/uL [facility] Basophils/100 WBC (Bld) 0.4 % 0.0 - 2.0 % [facility] Eosinophils (Bld) [#/Vol] 0.2 10*3/uL 0.0 - 0.5 10*3/uL [facility] Eosinophils/100 WBC (Bld) 3.1 % 0.0 - 6.0 % [facility] Erythrocyte distribution width (RBC) [Ratio] 13.8 % 11.5 - 15.0 % [facility] Hematocrit (Bld) [Volume fraction] 40.4 % 40.0 - 52.0 % [facility] Hemoglobin (Bld) [Mass/Vol] 12.9 g/dL Low 13.0 - 18.0 g/dL [facility] Immature granulocytes (Bld) [#/Vol] 0.0 10*3/uL NINF - 0.1 10*3/uL [employer] Immature granulocytes/100 WBC (Bld) 0.4 % 0.0 - 2.0 % [facility] Interpretation and review of laboratory results Abnormal [facility] Lymphocytes (Bld) [#/Vol] 2.1 10*3/uL 1.0 - 4.3 10*3/uL [facility] Lymphocytes/100 WBC (Bld) 28.5 % 15.0 - 45.0 % [facility] MCH (RBC) [Entitic mass] 30.9 pg 26.0 - 34.[address] [facility] MCHC (RBC) [Mass/Vol] 31.9 % 30.5 - 36.0 % [facility] MCV (RBC) [Entitic vol] 96.9 fL 77.0 - 99.[address] [facility] [address] [facility] [facility] Monocytes (Bld) [#/Vol] 0.8 10*3/uL 0.0 - 0.9 10*3/uL [facility] Monocytes/100 WBC (Bld) 10.8 % 5.0 - 13.0 % [facility] Neutrophils (Bld) [#/Vol] 4.3 10*3/uL 1.8 - 7.5 10*3/uL [facility] Neutrophils/100 WBC (Bld) 56.8 % 38.0 - 82.0 % [facility] Nucleated RBC/100 WBC (Bld) [Ratio] 0.0 % [facility] Platelet mean volume (Bld) [Entitic vol] 9.7 fL 9.0 - 12.[address] [facility] Platelets (Bld) [#/Vol] 252 10*3/uL 140 - 440 10*3/uL [facility] RBC (Bld) [#/Vol] 4.17 10*6/uL Low 4.40 - 5.9 0 10*6/uL [facility] WBC (Bld) [#/Vol] 7.5 10*3/uL 3.6 - 10.7 10*3/uL [facility] Comprehensive metabolic 1998 panelon 06-24-2024 Albumin [Mass/Vol] 3.1 g/dL Low 3.5 - 5.0 g/dL [facility] ALP [Catalytic activity/Vol] 59 U/L 38 - 126 U/L [facility] ALT [Catalytic activity/Vol] 63 U/L High 0 - 49 U/L [facility] Anion gap [Moles/Vol] 3 mmol/L 3 - 13 mmol/L [facility] AST [Catalytic activity/Vol] 56 U/L High 15 - 46 U/L [facility] Bilirubin [Mass/Vol] 0.5 mg/dL 0.2 - 1.3 mg/dL [facility] Calcium [Mass/Vol] 8.5 mg/dL 8.4 - 10. 4 mg/dL [facility] Chloride [Moles/Vol] 102 mmol/L 98 - 107 mmol/L [facility] CO2 [Moles/Vol] 28 mmol/L 22 - 30 mmol/L [facility] Creatinine [Mass/Vol] 0.40 mg/dL Low 0.66 - 1.25 mg/dL [facility] GFR/1.73 sq M.predicted (S/P/Bld) [Vol rate/Area] - PINF [facility] Comment on above: Calculation based on the Chronic Kidney Disease Epidemiology Collaboration (CKD-EPI) equation refit without adjustment for race Glucose [Mass/Vol] 102 mg/dL High 70 - 100 mg/dL [facility] Interpretation and review of laboratory results Abnormal [facility] Potassium [Moles/Vol] 4.2 mmol/L 3.5 - 5.1 mmol/L [facility] Protein [Mass/Vol] 6.3 g/dL 6.3 - 8.2 g/dL [facility] Sodium [Moles/Vol] 134 mmol/L Low 135 - 145 mmol/L [facility] Urea nitrogen [Mass/Vol] 18 mg/dL 9 - 20 mg/dL [facility] CBC W Auto Differential pane l (Bld)on 06-23-2024 Basophils (Bld) [#/Vol] 0.0 10*3/uL 0.0 - 0.2 10*3/uL [facility] Basophils/100 WBC (Bld) 0.6 % 0.0 - 2.0 % [facility] Eosinophils (Bld) [#/Vol] 0.2 10*3/uL 0.0 - 0.5 10*3/uL [facility] Eosinophils/100 WBC (Bld) 3.2 % 0.0 - 6.0 % [facility] Erythrocyte distribution width (RBC) [Ratio] 13.8 % 11.5 - 15.0 % [facility] Hematocrit (Bld) [Volume fraction] 40.1 % 40.0 - 52.0 % [facility] Hemoglobin (Bld) [Mass/Vol] 13.1 g/dL 13.0 - 18.0 g/dL [facility] Immature granulocytes (Bld) [#/Vol] 0.0 10*3/uL NINF - 0.1 10*3/uL [facility] Immature granulocytes/100 WBC (Bld) 0.3 % 0.0 - 2.0 % [facility] Interpretation and review of laboratory results Abnormal [facility] Lymphocytes (Bld) [#/Vol] 2.2 10*3/uL 1.0 - 4.3 10*3/uL [facility] Lymphocytes/100 WBC (Bld) 30.4 % 15.0 - 45.0 % [facility] MCH (RBC) [Entitic mass] 32.0 pg 26.0 - 34.[address] [facility] MCHC (RBC) [Mass/Vol] 32.7 % 30.5 - 36.0 % [facility] MCV (RBC) [Entitic vol] 98.0 fL 77.0 - 99.[address] [facility] Monocytes (Bld) [#/Vol] 0.8 10*3/uL 0.0 - 0.9 10*3/uL [facility] Monocytes/100 WBC (Bld) 11.6 % 5.0 - 13.0 % [facility] Neutrophils (Bld) [#/Vol] 3.8 10*3/uL 1.8 - 7.5 10*3/uL [facility] Neutrophils/100 WBC (Bld) 53.9 % 38.0 - 82.0 % [facility] Nucleated RBC/100 WBC (Bld) [Ratio] 0.0 % [facility] Platelet mean volume (Bld) [Entitic vol] 9.6 fL 9.0 - 12.[address] [facility] Platelets (Bld) [#/Vol] 251 10*3/uL 140 - 440 10*3/uL [facility] RBC (Bld) [#/Vol] 4.09 10*6/uL Low 4.40 - 5.9 0 10*6/uL [facility] WBC (Bld) [#/Vol] 7.1 10*3/uL 3.6 - 10.7 10*3/uL [facility] Comprehensive metabolic 1998 panelon 06-23-2024 Albumin [Mass/Vol] 3.2 g/dL Low 3.5 - 5.0 g/dL [facility] ALP [Catalytic activity/Vol] 56 U/L 38 - 126 U/L [facility] ALT [Catalytic activity/Vol] 66 U/L High 0 - 49 U/L [facility] Anion gap [Moles/Vol] 5 mmol/L 3 - 13 mmol/L [facility] AST [Catalytic activity/Vol] 57 U/L High 15 - 46 U/L [facility] Bilirubin [Mass/Vol] 0.5 mg/dL 0.2 - 1.3 mg/dL [facility] Calcium [Mass/Vol] 8.5 mg/dL 8.4 - 10. 4 mg/dL [facility] Chloride [Moles/Vol] 101 mmol/L 98 - 107 mmol/L [facility] CO2 [Moles/Vol] 30 mmol/L 22 - 30 mmol/L [facility] Creatinine [Mass/Vol] 0.41 mg/dL Low 0.66 - 1.25 mg/dL [facility] GFR/1.73 sq M.predicted (S/P/Bld) [Vol rate/Area] - PINF [facility] Comment on above: Calculation based on the Chronic Kidney Disease Epidemiology Collaboration (CKD-EPI) equation refit without adjustment for race Glucose [Mass/Vol] 103 mg/dL High 70 - 100 mg/dL [facility] Interpretation and review of laboratory results Abnormal [facility] Potassium [Moles/Vol] 4.2 mmol/L 3.5 - 5.1 mmol/L [facility] Protein [Mass/Vol] 6.4 g/dL 6.3 - 8.2 g/dL [facility] Sodium [Moles/Vol] 136 mmol/L 135 - 145 mmol/L [facility] Urea nitrogen [Mass/Vol] 17 mg/dL 9 - 20 mg/dL [facility] CBC W Auto Differential pane l (Bld)on 06-22-2024 Basophils (Bld) [#/Vol] 0.1 10*3/uL 0.0 - 0.2 10*3/uL [facility] Basophils/100 WBC (Bld) 0.6 % 0.0 - 2.0 % [facility] Eosinophils (Bld) [#/Vol] 0.2 10*3/uL 0.0 - 0.5 10*3/uL [facility] Eosinophils/100 WBC (Bld) 2.5 % 0.0 - 6.0 % [facility] Erythrocyte distribution width (RBC) [Ratio] 13.8 % 11.5 - 15.0 % [facility] Hematocrit (Bld) [Volume fraction] 36.7 % Low 40.0 - 52.0 % [facility] Hemoglobin (Bld) [Mass/Vol] 11.9 g/dL Low 13.0 - 18.0 g/dL [facility] Immature granulocytes (Bld) [#/Vol] 0.0 10*3/uL NINF - 0.1 10*3/uL [facility] Immature granulocytes/100 WBC (Bld) 0.4 % 0.0 - 2.0 % [facility] Interpretation and review of laboratory results Abnormal [facility] Lymphocytes (Bld) [#/Vol] 2.1 10*3/uL 1.0 - 4.3 10*3/uL [facility] Lymphocytes/100 WBC (Bld) 27.0 % 15.0 - 45.0 % [facility] MCH (RBC) [Entitic mass] 31.9 pg 26.0 - 34.[address] [facility] MCHC (RBC) [Mass/Vol] 32.4 % 30.5 - 36.0 % [facility] MCV (RBC) [Entitic vol] 98.4 fL 77.0 - 99.[address] [facility] Monocytes (Bld) [#/Vol] 1.0 10*3/uL High 0.0 - 0.9 10*3/uL [facility] Monocytes/100 WBC (Bld) 12.1 % 5.0 - 13.0 % [facility] Neutrophils (Bld) [#/Vol] 4.5 10*3/uL 1.8 - 7.5 10*3/uL [facility] Neutrophils/100 WBC (Bld) 57.4 % 38.0 - 82.0 % [facility] Nucleated RBC/100 WBC (Bld) [Ratio] 0.0 % [facility] Platelet mean volume (Bld) [Entitic vol] 9.5 fL 9.0 - 12.[address] [facility] Platelets (Bld) [#/Vol] 248 10*3/uL 140 - 440 10*3/uL [facility] RBC (Bld) [#/Vol] 3.73 10*6/uL Low 4.40 - 5.9 0 10*6/uL [facility] WBC (Bld) [#/Vol] 7.9 10*3/uL 3.6 - 10.7 10*3/uL [facility] Comprehensive metabolic 1998 panelon 06-22-2024 Albumin [Mass/Vol] 2.9 g/dL Low 3.5 - 5.0 g/dL [facility] ALP [Catalytic activity/Vol] 66 U/L 38 - 126 U/L [facility] ALT [Catalytic activity/Vol] 67 U/L High 0 - 49 U/L [facility] Anion gap [Moles/Vol] 5 mmol/L 3 - 13 mmol/L [facility] AST [Catalytic activity/Vol] 63 U/L High 15 - 46 U/L [facility] Bilirubin [Mass/Vol] 0.3 mg/dL 0.2 - 1.3 mg/dL [facility] Calcium [Mass/Vol] 8.2 mg/dL Low 8.4 - 10. 4 mg/dL [facility] Chloride [Moles/Vol] 104 mmol/L 98 - 107 mmol/L [facility] CO2 [Moles/Vol] 27 mmol/L 22 - 30 mmol/L [facility] Creatinine [Mass/Vol] 0.43 mg/dL Low 0.66 - 1.25 mg/dL [facility] GFR/1.73 sq M.predicted (S/P/Bld) [Vol rate/Area] - PINF [facility] Comment on above: Calculation based on the Chronic Kidney Disease Epidemiology Collaboration (CKD-EPI) equation refit without adjustment for race Glucose [Mass/Vol] 105 mg/dL High 70 - 100 mg/dL [facility] Interpretation and review of laboratory results Abnormal [facility] Potassium [Moles/Vol] 4.0 mmol/L 3.5 - 5.1 mmol/L [facility] Protein [Mass/Vol] 5.9 g/dL Low 6.3 - 8.2 g/dL [facility] Sodium [Moles/Vol] 135 mmol/L 135 - 145 mmol/L [facility] Urea nitrogen [Mass/Vol] 16 mg/dL 9 - 20 mg/dL [facility] CBC W Auto Differential pane l (Bld)on 06-21-2024 Basophils (Bld) [#/Vol] 0.1 10*3/uL 0.0 - 0.2 10*3/uL [facility] Basophils/100 WBC (Bld) 0.8 % 0.0 - 2.0 % [facility] Eosinophils (Bld) [#/Vol] 0.1 10*3/uL 0.0 - 0.5 10*3/uL [facility] Eosinophils/100 WBC (Bld) 2.1 % 0.0 - 6.0 % [facility] Erythrocyte distribution width (RBC) [Ratio] 13.7 % 11.5 - 15.0 % [facility] Hematocrit (Bld) [Volume fraction] 35.9 % Low 40.0 - 52.0 % [facility] Hemoglobin (Bld) [Mass/Vol] 11.4 g/dL Low 13.0 - 18.0 g/dL [facility] Immature granulocytes (Bld) [#/Vol] 0.0 10*3/uL NINF - 0.1 10*3/uL [facility] Immature granulocytes/100 WBC (Bld) 0.2 % 0.0 - 2.0 % [facility] Interpretation and review of laboratory results Abnormal [facility] Lymphocytes (Bld) [#/Vol] 1.9 10*3/uL 1.0 - 4.3 10*3/uL [facility] Lymphocytes/100 WBC (Bld) 29.0 % 15.0 - 45.0 % [facility] MCH (RBC) [Entitic mass] 31.6 pg 26.0 - 34.[address] [facility] MCHC (RBC) [Mass/Vol] 31.8 % 30.5 - 36.0 % [facility] MCV (RBC) [Entitic vol] 99.4 fL High 77.0 - 99.0 fL [facility] [email or web address] Monocytes (Bld) [#/Vol] 0.8 10*3/uL 0.0 - 0.9 10*3/uL [facility] Monocytes/100 WBC (Bld) 11.4 % 5.0 - 13.0 % [facility] Neutrophils (Bld) [#/Vol] 3.7 10*3/uL 1.8 - 7.5 10*3/uL [facility] Neutrophils/100 WBC (Bld) 56.5 % 38.0 - 82.0 % [facility] Nucleated RBC/100 WBC (Bld) [Ratio] 0.0 % [facility] [email or web address] Platelet mean volume (Bld) [Entitic vol] 9.4 fL 9.0 - 12.[address] [facility] Platelets (Bld) [#/Vol] 260 10*3/uL 140 - 440 10*3/uL [facility] RBC (Bld) [#/Vol] 3.61 10*6/uL Low 4.40 - 5.9 0 10*6/uL [facility] WBC (Bld) [#/Vol] 6.6 10*3/uL 3.6 - 10.7 10*3/uL [facility] Comprehensive metabolic 1997 panelon 06-21-2024 Albumin [Mass/Vol] 2.7 g/dL Low 3.5 - 5.0 g/dL [facility] ALP [Catalytic activity/Vol] 60 U/L 38 - 126 U/L [facility] ALT [Catalytic activity/Vol] 72 U/L High 0 - 49 U/L [facility] Anion gap [Moles/Vol] 5 mmol/L 3 - 13 mmol/L [facility] AST [Catalytic activity/Vol] 62 U/L High 15 - 46 U/L [facility] Bilirubin [Mass/Vol] 0.3 mg/dL 0.2 - 1.3 mg/dL [facility] Calcium [Mass/Vol] 7.8 mg/dL Low 8.4 - 10. 4 mg/dL [facility] Chloride [Moles/Vol] 105 mmol/L 98 - 107 mmol/L [facility] CO2 [Moles/Vol] 25 mmol/L 22 - 30 mmol/L [facility] Creatinine [Mass/Vol] 0.44 mg/dL Low 0.66 - 1.25 mg/dL [facility] GFR/1.73 sq M.predicted (S/P/Bld) [Vol rate/Area] - PINF [facility] Comment on above: Calculation based on the Chronic Kidney Disease Epidemiology Collaboration (CKD-EPI) equation refit without adjustment for race Glucose [Mass/Vol] 112 mg/dL High 70 - 100 mg/dL [facility] Interpretation and review of laboratory results Abnormal [facility] Potassium [Moles/Vol] 4.1 mmol/L 3.5 - 5.1 mmol/L [facility] Protein [Mass/Vol] 5.6 g/dL Low 6.3 - 8.2 g/dL [facility] Sodium [Moles/Vol] 135 mmol/L 135 - 145 mmol/L [facility] Urea nitrogen [Mass/Vol] 16 mg/dL 9 - 20 mg/dL [facility] Basic metabolic 1997 panelon 06-20-2024 Anion gap [Moles/Vol] 6 mmol/L 3 - 13 mmol/L [facility] Calcium [Mass/Vol] 8.3 mg/dL Low 8.4 - 10. 4 mg/dL [facility] Chloride [Moles/Vol] 103 mmol/L 98 - 107 mmol/L [facility] CO2 [Moles/Vol] 29 mmol/L 22 - 30 mmol/L [facility] Creatinine [Mass/Vol] 0.41 mg/dL Low 0.66 - 1.25 mg/dL [facility] GFR/1.73 sq M.predicted (S/P/Bld) [Vol rate/Area] - PINF [facility] Comment on above: Calculation based on the Chronic Kidney Disease Epidemiology Collaboration (CKD-EPI) equation refit without adjustment for race Glucose [Mass/Vol] 95 mg/dL 70 - 100 mg/dL [facility] Interpretation and review of laboratory results Abnormal [facility] Potassium [Moles/Vol] 4.2 mmol/L 3.5 - 5.1 mmol/L [facility] Sodium [Moles/Vol] 138 mmol/L 135 - 145 mmol/L [facility] Urea nitrogen [Mass/Vol] 12 mg/dL 9 - 20 mg/dL [facility] CBC W Auto Differential pane l (Bld)on 06-20-2024 Basophils (Bld) [#/Vol] 0.0 10*3/uL 0.0 - 0.2 10*3/uL [facility] Basophils/100 WBC (Bld) 0.6 % 0.0 - 2.0 % [facility] Eosinophils (Bld) [#/Vol] 0.1 10*3/uL 0.0 - 0.5 10*3/uL [facility] Eosinophils/100 WBC (Bld) 1.4 % 0.0 - 6.0 % [facility] Erythrocyte distribution width (RBC) [Ratio] 13.5 % 11.5 - 15.0 % [facility] Hematocrit (Bld) [Volume fraction] 39.4 % Low 40.0 - 52.0 % [facility] Hemoglobin (Bld) [Mass/Vol] 12.8 g/dL Low 13.0 - 18.0 g/dL [facility] Immature granulocytes (Bld) [#/Vol] 0.0 10*3/uL NINF - 0.1 10*3/uL [facility] Immature granulocytes/100 WBC (Bld) 0.3 % 0.0 - 2.0 % [facility] Interpretation and review of laboratory results Abnormal [facility] Lymphocytes (Bld) [#/Vol] 1.7 10*3/uL 1.0 - 4.3 10*3/uL [facility] [email or web address] Lymphocytes/100 WBC (Bld) 23.5 % 15.0 - 45.0 % [facility] [email or web address] MCH (RBC) [Entitic mass] 31.6 pg 26.0 - 34.0 pg [facility] [email or web address] MCHC (RBC) [Mass/Vol] 32.5 % 30.5 - 36.0 % [facility] [email or web address] MCV (RBC) [Entitic vol] 97.3 fL 77.0 - 99.0 fL [facility] [email or web address] Monocytes (Bld) [#/Vol] 0.7 10*3/uL 0.0 - 0.9 10*3/uL [facility] [employer] Monocytes/100 WBC (Bld) 10.6 % 5.0 - 13.0 % [facility] Neutrophils (Bld) [#/Vol] 4.5 10*3/uL 1.8 - 7.5 10*3/uL [facility] [employer] Neutrophils/100 WBC (Bld) 63.6 % 38.0 - 82.0 % [facility] [employer] Nucleated RBC/100 WBC (Bld) [Ratio] 0.0 % [facility] [employer] Platelet mean volume (Bld) [Entitic vol] 9.3 fL 9.0 - 12.7 fL [facility] [employer] Platelets (Bld) [#/Vol] 298 10*3/uL 140 - 440 10*3/uL [facility] [employer] RBC (Bld) [#/Vol] 4.05 10*6/uL Low 4.40 - 5.9 0 10*6/uL [facility] [employer] WBC (Bld) [#/Vol] 7.0 10*3/uL 3.6 - 10.7 10*3/uL [facility] [email or web address] Laboratory - Chemistry and C hemistry - challengeon 06-20-2024 Troponin I.cardiac [Mass/Vol] ng/mL NINF - 0.034 ng/mL [facility] [employer] No Panel InformationOrdered By: Alejandro Ayala on 06-20-2024 P [place] 6 degrees [email or web address] Work Phone: OK Interval 209 ms [employer] Work Phone: QRS [place] -48 degrees [employer] Work Phone: QRSD Interval 137 ms [employer] Work Phone: QT Interval 507 ms [employer] Work Phone: QTC Interval 467 ms [employer] Work Phone: T Wave [place] -23 degrees [employer] Work Phone: [employer] Work Phone: No Panel Informationon 06-20 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 Appticles Vital signsOrdered By: Panda Ayala on 06-20-2024 Heart rate 51 /min bpm [employer] Work Phone: XR Chest Single viewon 06-20 Linear atelectasis in the mid lungs bilaterally. Report Dictated on Electronically Signed By: Alejandro Malagon MD Electronically Signed Date/Time: 06/20/2024 10:34 AM T [facility] Patient Name: IZABELA [facility]ON [facility] 1940 [id number] Exam Date/Time: 06/20/2024 10:24 Procedure: XR CHEST [...] spine and shoulders. No acute osseous findings. [facility] Alejandro Malagon MD - 06/20/2024 Patient Name: IZABELA LONDON : 1940 [id number] Exam Date/Time: 06/20/2024 10:24 Procedure: XR CHEST [...] Electronically Signed Date/Time: 06/20/2024 10:34 AM EDT [facility] Radiology Study observation (narrative) [facility] [employer] XR Chest Single viewOrdered By: Alejandro Malagon on 06-20-2024 [email or web address] Work Phone: POCT Influenza A/Bon 024 Interpretation and review of laboratory results Normal [facility] Rapid Influenza A Ag Negative Negativ e, Indeterminate [facility] [employer] Rapid Influenza B Ag Negative Negativ e, Indeterminate [facility] [employer] CBC W Auto Differential pane l (Bld)on 02-29-2024 Basophils (Bld) [#/Vol] 39 10*3/uL [facility] [employer] Basophils/100 WBC (Bld) 0.7 % [facility] Eosinophils (Bld) [#/Vol] 132 10*3/uL [facility] Eosinophils/100 WBC (Bld) 2.4 % [facility] Erythrocyte distribution width (RBC) [Ratio] 13.2 % 11.0 - 15.0 % [facility] [employer] Hematocrit (Bld) [Volume fraction] 43.9 % 38.5 - 50.0 % [facility] Hemoglobin (Bld) [Mass/Vol] 14.9 g/dL 13.2 - 17.1 g/dL [facility] Lymphocytes (Bld) [#/Vol] 1293 10*3/uL [facility] Lymphocytes/100 WBC (Bld) 23.5 % [facility] MCH (RBC) [Entitic mass] 32.3 pg 27.0 - 33.[address] [facility] MCHC (RBC) [Mass/Vol] 33.9 g/dL 32.0 - 36.0 g/dL [facility] MCV (RBC) [Entitic vol] 95.0 fL 80.0 - 100.[address] [facility] Monocytes (Bld) [#/Vol] 682 10*3/uL [facility] Monocytes/100 WBC (Bld) 12.4 % [facility] Neutrophils (Bld) [#/Vol] 3355 10*3/uL [facility] Neutrophils/100 WBC (Bld) 61 % [facility] Platelet mean volume (Bld) [Entitic vol] 10.2 fL 7.5 - 12.[address] [facility] Platelets (Bld) [#/Vol] 250 10*3/uL [facility] RBC (Bld) [#/Vol] 4.62 10*6/uL [facility] WBC (Bld) [#/Vol] 5.5 10*3/uL [facility] Comprehensive metabolic 1998 panelon 02-29-2024 Albumin [Mass/Vol] 4.0 g/dL 3.6 - 5.1 g/dL [facility] Albumin/Globulin [Mass ratio] 1.6 {ratio} [facility] ALP [Catalytic activity/Vol] 45 U/L 35 - 144 U/L [facility] ALT [Catalytic activity/Vol] 39 U/L 9 - 46 U/L [facility] AST [Catalytic activity/Vol] 43 U/L High 10 - 35 U/L [facility] Bilirubin [Mass/Vol] 0.8 mg/dL 0.2 - 1.2 mg/dL [facility] Calcium [Mass/Vol] 9.1 mg/dL 8.6 - 10. 3 mg/dL [facility] Chloride [Moles/Vol] 102 mmol/L 98 - 110 mmol/L [facility] CO2 [Moles/Vol] 28 mmol/L 20 - 32 mmol/L [facility] Creatinine [Mass/Vol] 0.51 mg/dL Low 0.70 - 1.22 mg/dL [facility] GFR/1.73 sq M.predicted among non-blacks MDRD (S/P/Bld) [Vol rate/Area] 100 mL/min/{1.73_m2} > OR = 60 mL/min/1.73m2 [facility] Globulin (S) [Mass/Vol] 2.5 g/dL [facility] Glucose [Mass/Vol] 107 mg/dL High 65 - 99 mg/dL [facility] Comment on above: Fasting reference interval For someone without known diabetes, a glucose value between 100 and 125 mg/dL is consistent with prediabetes and should be confirmed with a follow-up test. Interpretation and review of laboratory results Abnormal [facility] Potassium [Moles/Vol] 4.5 mmol/L 3.5 - 5.3 mmol/L [facility] Protein [Mass/Vol] 6.5 g/dL 6.1 - 8.1 g/dL [facility] Sodium [Moles/Vol] 138 mmol/L 135 - 146 mmol/L [facility] Urea nitrogen [Mass/Vol] 13 mg/dL 7 - 25 mg/dL [facility] Urea nitrogen/Creatinine [Mass ratio] 25 mg/mg High [facility] Center No Panel Informationon 02-[address] [facility] PSA Total (Screening)on Prostate specific Ag [Mass/Vol] 1.02 ng/mL < OR = 4.[address] [facility] Comment on above: The total PSA value from this assay system is standardized against the WHO standard. The test result will be approximately 20% lower when compared to the equimolar-standardized total PSA (Shirin Needham). Comparison of serial PSA results should be interpreted with this fact in mind. This test was performed using the Siemens chemiluminescent method. Values obtained from different assay methods cannot be used interchangeably. PSA levels, regardless of value, should not be interpreted as absolute evidence of the presence or absence of disease. Delisa 06-30-2023 [facility] Telephone (AGCARDPOB ) SURYAIZABELA ([id number]) 1940 M PREETI Date Time Provider Department 06/30/23 JUANJO FERRELL AGCARDPOB During your visit today, we recorded the following information about you: Onel Shepherd LPN 06/30/2023 8:52 AM Signed Last seen [phone]. Clerical to call to schedule overdue Follow up. Onel Shepherd LPN Regina Garcia 07/07/2023 3:23 PM Signed Scheduled Allergies As [...] (HCC) [I20.9] 05/18/2017 Coronary artery disease involving rampart banks* Other hyperlipidemia [E78.49] Hypertensive disorder [I10] Carotid stenosis, asymptomatic, bilateral [I65.*05/18/2017 Dyslipidemia [E78.5] Status post percutaneous transluminal coronary * Obesity, Class I, BMI 30-34.9 [E66.9] 05/10/2018 Pre-operative cardiovascular examination [Z01.8*05/18/2019 Encounter Status:Closed by ONEL SHEPHERD on 07/01/23 Normal [facility] CBC W Auto Differential pane l (Bld)on 03-25-2023 Basophils (Bld) [#/Vol] 0.1 10*3/uL 0.0 - 0.2 10*3/uL [facility] Basophils/100 WBC (Bld) 0.7 % 0.0 - 2.0 % [facility] Eosinophils (Bld) [#/Vol] 0.2 10*3/uL 0.0 - 0.5 10*3/uL [facility] Eosinophils/100 WBC (Bld) 2.2 % 1.0 - 6.0 % [facility] Erythrocyte distribution width (RBC) [Ratio] 13.7 % 11.5 - 14.5 % [facility] Hematocrit (Bld) [Volume fraction] 43.3 % 40.0 - 52.0 % [facility] Hemoglobin (Bld) [Mass/Vol] 14.5 g/dL 13.0 - 18.0 g/dL [facility] Interpretation and review of laboratory results Normal [facility] Lymphocytes (Bld) [#/Vol] 1.8 10*3/uL 1.0 - 4.3 10*3/uL [facility] Lymphocytes/100 WBC (Bld) 23.3 % 20.0 - 40.0 % [facility] MCH (RBC) [Entitic mass] 32.5 pg 26.0 - 34.0 pg [facility] MCHC (RBC) [Mass/Vol] 33.5 % 32.0 - 36.0 % [facility] MCV (RBC) [Entitic vol] 97.0 fL 80.0 - 98.0 fL [facility] Monocytes (Bld) [#/Vol] 0.6 10*3/uL 0.0 - 0.8 10*3/uL [facility] Monocytes/100 WBC (Bld) 8.0 % 2.0 - 10.0 % [facility] Neutrophils (Bld) [#/Vol] 5.2 10*3/uL 1.8 - 7.0 10*3/uL [facility] Neutrophils/100 WBC (Bld) 65.8 % 40.0 - 80.0 % [facility] Nucleated RBC/100 WBC (Bld) [Ratio] 0.0 % [facility] Platelet mean volume (Bld) [Entitic vol] 8.1 fL 7.4 - 12.[address] [facility] Platelets (Bld) [#/Vol] 272 10*3/uL 140 - 440 10*3/uL [facility] RBC (Bld) [#/Vol] 4.46 10*6/uL 4.40 - 5.9 0 10*6/uL [facility] WBC (Bld) [#/Vol] 7.9 10*3/uL 3.6 - 10.7 10*3/uL [facility] Comprehensive metabolic 1998 panelon 03-25-2023 Albumin [Mass/Vol] 3.9 g/dL 3.5 - 5.0 g/dL [facility] ALP [Catalytic activity/Vol] 80 U/L 38 - 126 U/L [facility] ALT [Catalytic activity/Vol] 80 U/L High 0 - 49 U/L [facility] Anion gap [Moles/Vol] 3 mmol/L 3 - 13 mmol/L [facility] AST [Catalytic activity/Vol] 73 U/L High 15 - 46 U/L [facility] Bilirubin [Mass/Vol] 0.5 mg/dL 0.2 - 1.3 mg/dL [facility] Calcium [Mass/Vol] 9.1 mg/dL 8.4 - 10. 4 mg/dL [facility] Chloride [Moles/Vol] 105 mmol/L 98 - 107 mmol/L [facility] CO2 [Moles/Vol] 30 mmol/L 22 - 30 mmol/L [facility] Creatinine [Mass/Vol] 0.50 mg/dL Low 0.66 - 1.25 mg/dL [facility] GFR/1.73 sq M.predicted MDRD (S/P/Bld) [Vol rate/Area] - PINF [facility] Comment on above: Calculation based on the Chronic Kidney Disease Epidemiology Collaboration (CKD-EPI) equation refit without adjustment for race Glucose [Mass/Vol] 102 mg/dL High 70 - 100 mg/dL [facility] Interpretation and review of laboratory results Abnormal [facility] Potassium [Moles/Vol] 4.2 mmol/L 3.5 - 5.1 mmol/L [facility] Protein [Mass/Vol] 6.6 g/dL 6.3 - 8.2 g/dL [facility] Sodium [Moles/Vol] 139 mmol/L 135 - 145 mmol/L [facility] Urea nitrogen [Mass/Vol] 22 mg/dL High 9 - 20 mg/dL [facility] Laboratory - Chemistry and C hemistry - challengeon 03-25-2023 Prostate specific Ag [Mass/Vol] 0.443 ng/mL NINF - 4.000 ng/mL [facility] No Panel Informationon 03-25 Interpretation and review of laboratory results Normal [facility] Testing performed on the [employer] 5600 using an immunometric methodology. Results obtained by different methods should not be used interchangeably. [facility] Comprehensive metabolic 1998 panelOrdered By: oCnrad Potter on 09-24-2022 Albumin [Mass/Vol] 3.9 g/dL 3.5 - 5.0 g/dL [facility] ALP [Catalytic activity/Vol] 57 U/L 38 - 126 U/L [facility] ALT [Catalytic activity/Vol] 77 U/L High 0 - 49 U/L [facility] Anion gap [Moles/Vol] 6 mmol/L 3 - 13 mmol/L [facility] AST [Catalytic activity/Vol] 109 U/L High 15 - 46 U/L [facility] Bilirubin [Mass/Vol] 0.6 mg/dL 0.2 - 1.3 mg/dL [facility] Calcium [Mass/Vol] 9.1 mg/dL 8.4 - 10. 4 mg/dL [facility] Chloride [Moles/Vol] 106 mmol/L 98 - 107 mmol/L [facility] CO2 [Moles/Vol] 24 mmol/L 22 - 30 mmol/L [facility] Creatinine [Mass/Vol] 0.50 mg/dL Low 0.66 - 1.25 mg/dL [facility] GFR/1.73 sq M.predicted MDRD (S/P/Bld) [Vol rate/Area] - PINF [facility] Comment on above: Calculation based on the Chronic Kidney Disease Epidemiology Collaboration (CKD-EPI) equation refit without adjustment for race Glucose [Mass/Vol] 103 mg/dL High 70 - 100 mg/dL [facility] Interpretation and review of laboratory results Abnormal [facility] Potassium [Moles/Vol] 4.4 mmol/L 3.5 - 5.1 mmol/L [facility] Protein [Mass/Vol] 7.0 g/dL 6.3 - 8.2 g/dL [facility] Sodium [Moles/Vol] 135 mmol/L 135 - 145 mmol/L [facility] Urea nitrogen [Mass/Vol] 15 mg/dL 9 - 20 mg/dL [facility] CR Abdomen APon 12-08-2021 CR Abdomen AP Patient Name: IZABELA LONDON Diagnostic Radiology ACCESSION EXAM DATE/TIME PROCEDURE ORDERING PROVIDER [id number] 12/08/2021 13:45 EST CR Abdomen AP [id number] -ABIGAIL VINCENT CPT code 71101 Reason For Exam (CR Abdomen AP) right [...] Transcribed Date and Time: 12/09/2021 3:55 Normal [facility] CULTURE URINEon 12-03-2021 CULTURE URINE CULTURE URINE --> Status: F Normal urogenital manjeet present. Normal [facility] Comment on above: Performed By: #### C /UR #### [address] [address] Basic Metabolic Panelon Anion gap [Moles/Vol] 7 mmol/L Normal 3-13 [facility] Comment on above: Order Comment: SLIGH T HEMOLYSIS Performed By: #### H EMDF, BMP3, LFT3, LIPA4, MG3 #### [facility] [address] [place] [address] Calcium [Mass/Vol] 9.2 mg/dL Normal 8.4-10.4 [facility] Comment on above: Order Comment: SLIGH T HEMOLYSIS Performed By: #### H EMDF, BMP3, LFT3, LIPA4, MG3 #### [facility] [address] [place] [address] CO2 [Moles/Vol] 26 mmol/L Normal 22-30 [facility] Comment on above: Order Comment: SLIGH T HEMOLYSIS Performed By: #### H EMDF, BMP3, LFT3, LIPA4, MG3 #### [facility] [address] [place] [address] Creatinine [Mass/Vol] 0.79 mg/dL Normal 0.52-1.25 [facility] Comment on above: Order Comment: SLIGH T HEMOLYSIS Performed By: #### H EMDF, BMP3, LFT3, LIPA4, MG3 #### [facility] [address] [place] [address] GFR/1.73 sq M.predicted among blacks MDRD (S/P/Bld) [Vol rate/Area] mL/min/{1.73_m2} Normal >60 [facility] Comment on above: Order Comment: SLIGH T HEMOLYSIS Performed By: #### H EMDF, BMP3, LFT3, LIPA4, MG3 #### [facility] [address] [place] [address] GFR/1.73 sq M.predicted among non-blacks MDRD (S/P/Bld) [Vol rate/Area] 83.7 mL/min/{1.73_m2} Normal >60 [facility] Comment on above: Order Comment: SLIGH [...] H EMDF, BMP3, LFT3, LIPA4, MG3 #### [facility] [address] [place] [address] Glucose [Mass/Vol] 161 mg/dL High 70-100 [facility] Comment on above: Order Comment: SLIGH T HEMOLYSIS Performed By: #### H EMDF, BMP3, LFT3, LIPA4, MG3 #### [facility] [address] [place] [address] Urea nitrogen [Mass/Vol] 19 mg/dL High 7-17 [facility] Comment on above: Order Comment: SLIGH T HEMOLYSIS Performed By: #### H EMDF, BMP3, LFT3, LIPA4, MG3 #### [facility] [address] [place] [address] Potassium [Moles/Vol] 4.1 mmol/L Normal 3.5-5.1 [facility] Comment on above: Order Comment: SLIGH T HEMOLYSIS Performed By: #### H EMDF, BMP3, LFT3, LIPA4, MG3 #### [facility] [address] [place] [address] Sodium [Moles/Vol] 140 mmol/L Normal 135-145 [facility] Comment on above: Order Comment: SLIGH T HEMOLYSIS Performed By: #### H EMDF, BMP3, LFT3, LIPA4, MG3 #### [facility] [address] [place] [address] Chloride [Moles/Vol] 107 mmol/L Normal 98-107 [facility] Comment on above: Order Comment: SLIGH T HEMOLYSIS Performed By: #### H EMDF, BMP3, LFT3, LIPA4, MG3 #### [facility] [address] [place] [address] CT Abdomen/Pelvis w/o Contra quinten 12-02-2021 CT Abdomen/Pelvis w/o Contrast Patient Name: IZABELA LONDON [facility]#: [id number] Computed Tomography ACCESSION EXAM DATE/TIME PROCEDURE ORDERING PROVIDER [id number] 12/02/2021 05:[address] Abdomen/Pelvis (No [id number] -KIBE, FÁTIMA PO, No IV) CPT code 06963 Reason For Exam (CT Abdomen/Pelvis (No PO, [...] Transcribed Date and Time: 12/02/2021 5:30 Normal [facility] Complete Urinalysison 2021 Appearance (U) Clear Normal Clear [facility] Comment on above: Result Comment: . Performed By: #### C UA2 ####[address] [place] [address] Bacteria LM.HPF (Urine sed) [#/Area] Negative Normal Negative [facility] Comment on above: Result Comment: . Performed By: #### C UA2 ####[address] [place] [address] Bilirubin,Urine Negative Normal Negative [facility] Comment on above: Result Comment: . Performed By: #### C UA2 ####[address] [place] [address] Color (U) Light-Yellow Normal Lt. Yellow [facility] Comment on above: Result Comment: . Performed By: #### C UA2 ####[address] [place] [address] Glucose Ql (U) Normal Normal Normal (<70) [facility] Comment on above: Result Comment: . Performed By: #### C UA2 ####[address] [place] [address] Ketone,Urine Negative Normal Negative [facility] Comment on above: Result Comment: . Performed By: #### C UA2 ####[address] [place] [address] Leukocytes,Urine Negative Normal Negative [facility] Comment on above: Result Comment: . Performed By: #### C UA2 ####[address] [place] [address] Mucous Threads Few Normal Negative [facility] Comment on above: Result Comment: . Performed By: #### C UA2 ####[address] [place] [address] Nitrites,Urine Negative Normal Negative [facility] Comment on above: Result Comment: . Performed By: #### C UA2 ####[place] [address] [place] [address] Occult Blood,Urine 0.2 mg/dL Abnormal Negative [facility] Comment on above: Result Comment: . Performed By: #### C UA2 ####[place] [address] [place] [address] pH,Urine 5.0 Normal 5.0-8.0 [facility] Comment on above: Result Comment: . Performed By: #### C UA2 ####[address] [place] [address] RBC, Urine 11 - 25 Abnormal 0-2 [facility] Comment on above: Result Comment: . Performed By: #### C UA2 ####[address] [place] [address] Specific [place],Urine 1.023 Normal 1.005 - 1.030 [facility] Comment on above: Result Comment: . Performed By: #### C UA2 ####[place] [address] [place] [address] Squamous Epithelial 0 - 2 Normal 3-5 [facility] Comment on above: Result Comment: . Performed By: #### C UA2 ####[address] [place] [address] Total Protein,Urine Negative Normal Negative [facility] Comment on above: Result Comment: . Performed By: #### C UA2 ####[address] [place] [address] Urobilinogen,Urine Normal Normal Normal (0-1) [facility] Comment on above: Result Comment: . Performed By: #### C UA2 ####[place] [address] [place] [address] WBC, Urine 0 - 2 Normal 0-5 [facility] Comment on above: Result Comment: . Performed By: #### C UA2 ####[place] [address] [place] [address] ED Provider Noteon 2 ED Provider Note [facility] [place] [facility] EMERGENCY DEPARTMENT ENCOUNTER Pt Name: Izabela [...] History: Diagnosis Date ? 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 CAD (coronary artery [...] 1 d (more content not included)... Normal [facility] Hemogram w/ Autodiffon 12-02 Abs Baso Cnt 0.1 10*3/uL Normal 0.0-0.2 [facility] Comment on above: Performed By: #### H EMDF, BMP3, LFT3, LIPA4, MG3 #### [facility] [address] [place] [address] Abs Neutrophile Cnt 8.2 10*3/uL High 1.8-7.0 [facility] Comment on above: Performed By: #### H EMDF, BMP3, LFT3, LIPA4, MG3 #### [facility] [address] [place] [address] Basophils/100 WBC (Bld) 0.7 % Normal 0.0-2.0 [facility] Comment on above: Performed By: #### H EMDF, BMP3, LFT3, LIPA4, MG3 #### [facility] [address] [place] [address] Eosinophils (Bld) [#/Vol] 0.1 10*3/uL Normal 0.0-0.5 [facility] Comment on above: Performed By: #### H EMDF, BMP3, LFT3, LIPA4, MG3 #### [facility] [address] [place] [address] Eosinophils/100 WBC (Bld) 0.8 % Low 1.0-6.0 [facility] Comment on above: Performed By: #### H EMDF, BMP3, LFT3, LIPA4, MG3 #### [facility] [address] [place] [address] Erythrocyte distribution width (RBC) [Ratio] 13.6 % Normal 11.5-14.5 [facility] Comment on above: Performed By: #### H EMDF, BMP3, LFT3, LIPA4, MG3 #### [facility] [address] [place] [address] Granulocytes/100 WBC (Bld) 76.9 % Normal 40.0-80.0 [facility] Comment on above: Performed By: #### H EMDF, BMP3, LFT3, LIPA4, MG3 #### [facility] [address] [place] [address] Hematocrit (Bld) [Volume fraction] 44.9 % Normal 40.0-52.0 [facility] Comment on above: Performed By: #### H EMDF, BMP3, LFT3, LIPA4, MG3 #### [facility] [address] [place] [address] Hemoglobin (Bld) [Mass/Vol] 15.1 g/dL Normal 13.0-18.0 [facility] Comment on above: Performed By: #### H EMDF, BMP3, LFT3, LIPA4, MG3 #### [facility] [address] [place] [address] Lymphocytes (Bld) [#/Vol] 1.5 10*3/uL Normal 1.0-4.3 [facility] Comment on above: Performed By: #### H EMDF, BMP3, LFT3, LIPA4, MG3 #### [facility] [address] [place] [address] Lymphocytes/100 WBC (Bld) 14.0 % Low 20.0-40.0 [facility] Comment on above: Performed By: #### H EMDF, BMP3, LFT3, LIPA4, MG3 #### [facility] [address] [place] [address] MCH (RBC) [Entitic mass] 32.8 pg Normal 26.0-34.0 [facility] Comment on above: Performed By: #### H EMDF, BMP3, LFT3, LIPA4, MG3 #### [facility] [address] [place] [address] MCHC 33.6 % Normal 32.0-36.0 [facility] Comment on above: Performed By: #### H EMDF, BMP3, LFT3, LIPA4, MG3 #### [facility] [address] [place] [address] MCV (RBC) [Entitic vol] 97.6 fL Normal 80.0-98.0 [facility] Comment on above: Performed By: #### H EMDF, BMP3, LFT3, LIPA4, MG3 #### [facility] [address] [place] [address] Monocytes (Bld) [#/Vol] 0.8 10*3/uL Normal 0.0-0.8 [facility] Comment on above: Performed By: #### H EMDF, BMP3, LFT3, LIPA4, MG3 #### [facility] [address] [place] [address] Monocytes/100 WBC (Bld) 7.6 % Normal 2.0-10.0 [facility] Comment on above: Performed By: #### H EMDF, BMP3, LFT3, LIPA4, MG3 #### [facility] [address] [place] [address] Platelet mean volume (Bld) [Entitic vol] 8.3 fL Normal 7.4-10.4 [facility] Comment on above: Performed By: #### H EMDF, BMP3, LFT3, LIPA4, MG3 #### [facility] [address] [place] [address] Platelets (Bld) [#/Vol] 219 10*3/uL Normal 140-440 [facility] Comment on above: Performed By: #### H EMDF, BMP3, LFT3, LIPA4, MG3 #### [facility] [address] [place] [address] RBC (Bld) [#/Vol] 4.60 10*6/uL Normal 4.40-5.90 [facility] Comment on above: Performed By: #### H EMDF, BMP3, LFT3, LIPA4, MG3 #### [facility] [address] [place] [address] WBC (Bld) [#/Vol] 10.6 10*3/uL Normal 3.6-10.7 [facility] Comment on above: Performed By: #### H EMDF, BMP3, LFT3, LIPA4, MG3 #### [facility] [address] [place] [address] Hepatic Functionon 2 ALP [Catalytic activity/Vol] 65 U/L Normal 38-126 [facility] Comment on above: Order Comment: SLIGH T HEMOLYSIS Performed By: #### H EMDF, BMP3, LFT3, LIPA4, MG3 #### [facility] [address] [place] [address] ALT [Catalytic activity/Vol] 82 U/L High 0-49 [facility] Comment on above: Order Comment: SLIGH T HEMOLYSIS Result Comment: The ALT test is performed by an updated assay method. Please note that the reference intervals have been changed and are now sex specific. Performed By: #### H EMDF, BMP3, LFT3, LIPA4, MG3 #### [facility] [address] [place] [address] AST [Catalytic activity/Vol] 79 U/L High 15-46 [facility] Comment on above: Order Comment: SLIGH T HEMOLYSIS Performed By: #### H EMDF, BMP3, LFT3, LIPA4, MG3 #### [facility] [address] [place] [address] Bilirubin [Mass/Vol] 0.7 mg/dL Normal 0.2-1.3 [facility] Comment on above: Order Comment: SLIGH T HEMOLYSIS Performed By: #### H EMDF, BMP3, LFT3, LIPA4, MG3 #### [facility] [address] [place] [address] Bilirubin.indirect [Mass/Vol] 0.0 mg/dL Normal 0.0-0.3 [facility] Comment on above: Order Comment: SLIGH T HEMOLYSIS Performed By: #### H EMDF, BMP3, LFT3, LIPA4, MG3 #### [facility] [address] [place] [address] Protein [Mass/Vol] 7.1 g/dL Normal 6.3-8.2 [facility] Comment on above: Order Comment: SLIGH T HEMOLYSIS Performed By: #### H EMDF, BMP3, LFT3, LIPA4, MG3 #### [facility] [address] [place] [address] Albumin [Mass/Vol] 4.0 g/dL Normal 3.5-5.0 [facility] Comment on above: Order Comment: SLIGH T HEMOLYSIS Performed By: #### H EMDF, BMP3, LFT3, LIPA4, MG3 #### [facility] [address] [place] [address] Lipaseon 12-02-2021 Lipase [Catalytic activity/Vol] 179 U/L Normal 23-300 [facility] Comment on above: Order Comment: SLIGH T HEMOLYSIS Performed By: #### H EMDF, BMP3, LFT3, LIPA4, MG3 ####[facility] [place] [address] Magnesiumon 12-02-2021 Magnesium [Mass/Vol] 1.8 mg/dL Normal 1.6-2.3 [facility] Comment on above: Order Comment: SLIGH T HEMOLYSIS Performed By: #### H EMDF, BMP3, LFT3, LIPA4, MG3 ####[facility] [place] [address] CT ABDOMEN W WO CONTRAST Add itional Contrast? NoneOrdered By: Corazon Tee on 08-15-2021 Patient Name: IZABELA LONDON Computed Tomography ACCESSION EXAM DATE/TIME PROCEDURE ORDERING PROVIDER [id number] 08/15/2021 09:[address] Abdomen w/ + w/o Sherrie1 COR[place] Contrast CPT code 51480 Q9967 Reason For Exam (CT Abdomen w/ [...] Phone: [facility], [facility] Incoming Radiology Results From [facility] - 08/15/2021 2:35 PM EDT Patient Name: IZABELA LONDON Computed Tomography ACCESSION EXAM DATE/TIME PROCEDURE ORDERING PROVIDER [id number] 08/15/2021 09:[address] Abdomen w/ + w/o 5601 -GOSKE, [place] Contrast CPT code 41344 Q9967 Reason For Exam (CT Abdomen w/ [...] Tomography ACCESSION EXAM DATE/TIME PROCEDURE ORDERING PROVIDER [id number] 08/15/2021 09:[address] Abdomen w/ + w/o 5601 -GOSKE, [place] Contrast CPT code 49387 Q9967 Reason For Exam (CT Abdomen w/ [...] Transcribed Date and Time: 08/15/2021 2:35 Normal [facility] US ABDOMEN LIMITEDOrdered By : Jeramie Ching on 06-10-2021 Patient Name: IZABELA LONDON Ultrasound ACCESSION EXAM DATE/TIME PROCEDURE ORDERING PROVIDER [id number] 06/10/2021 08:10 EDT US Abdomen Limited MD CHING JOSEPH C. CPT code 05712 Reason For Exam (US Abdomen Limited) elevated [...] and Time: 06/10/2021 12:36 [facility] Work Phone: Ikp, [facility] Incoming Radiology Results From [facility] - 06/10/2021 12:36 PM EDT Patient Name: [id number] Ultrasound ACCESSION EXAM DATE/TIME PROCEDURE ORDERING PROVIDER [id number] 06/10/2021 08:10 EDT US Abdomen Limited MD CHING JOSEPH C. CPT code 72803 Reason For Exam (US Abdomen Limited) elevated [...] US Abdomen Limited Patient Name: [facility] [id number] Ultrasound ACCESSION EXAM DATE/TIME PROCEDURE ORDERING PROVIDER [id number] 06/10/2021 08:10 EDT US Abdomen Limited MD HUMZA, JERAMIE Stephens CPT code 25635 Reason For Exam (US Abdomen Limited) elevated [...] Transcribed Date and Time: 06/10/2021 12:[address] [facility] Bone Imaging Whole Bodyon 04-02-2021 NM Bone Imaging Whole Body Patient Name: IZABELA LONDON Nuclear Medicine ACCESSION EXAM DATE/TIME PROCEDURE ORDERING PROVIDER [id number] 04/02/2021 10:42 EDT NM Bone Imaging Whole ADONAYANUELER Body CPT code 48117 Reason For Exam (NM Bone Imaging Whole [...] Transcribed Date and Time: 04/02/2021 2:11 Normal [facility] NM Bone Scan Whole BodyOrder ed By: Kristen Urias on 04-02-2021 Patient Name: IZABELA LONDON Nuclear Medicine ACCESSION EXAM DATE/TIME PROCEDURE ORDERING PROVIDER [id number] 04/02/2021 10:42 EDT NM Bone Imaging Whole KRISTEN URIAS Body CPT code 35075 Reason For Exam (NM Bone Imaging Whole [...] Date and Time: 04/02/2021 2:11 [facility] Work Phone: [facility], [facility] Incoming Radiology Results From [facility] - 04/02/2021 2:11 PM EDT Patient Name: IZABELA LONDON Nuclear Medicine ACCESSION EXAM DATE/TIME PROCEDURE ORDERING PROVIDER [id number] 04/02/2021 10:42 EDT NM Bone Imaging Whole KRISTEN URIAS Body CPT code 44446 Reason For Exam (NM Bone Imaging Whole [...] and Time: 04/02/2021 2:11 [facility] Phone: [facility] Work Phone: CR Pelvis 1 or 2 Viewson CR Pelvis 1 or 2 Views Patient Name: [id number] Radiology ACCESSION EXAM DATE/TIME PROCEDURE ORDERING PROVIDER [id number] 12/23/2020 09:23 EST CR Pelvis 1 or 2 Views RANJITH TEE GRACE D CPT code 54111 Reason For Exam (CR Pelvis 1 or [...] Transcribed Date and Time: 12/24/2020 7:26 Normal [facility] XR KNEE BILATERAL STANDINGon 07-04-2020 Patient Name: IZABELA LONDON ---Diagnostic Radiology--- Exam Date/Time 07/04/2020 08:10:00 EDT Exam CR Knee Standing AP Bilateral Ordering Physician MD KIMBER, KADEEM CLANCY Accession Number [id number] CPT4 Codes 50716 () Reason For Exam pain Report LEFT [...] AHMAD Transcribed Date and Time: 07/04/2020 8:35 [facility], [place] [facility] Incoming Radiology Results From [facility] - 07/04/2020 8:35 AM EDT Patient Name: IZABELA LONDON ---Diagnostic Radiology--- Exam Date/Time 07/04/2020 08:10:00 EDT Exam CR Knee Standing AP Bilateral Ordering Physician MD KIMBER, KADEEM CLANCY Accession Number [id number] CPT4 Codes 26921 () Reason For Exam pain Report LEFT [...] AHMAD Transcribed Date and Time: 07/04/2020 8:35 [facility], [place] XR KNEE LEFT (1-2 VIEWS)on 0 07-04-2020 Patient Name: IZABELA LONDON ---Diagnostic Radiology--- Exam Date/Time 07/04/2020 08:10:00 EDT Exam CR Knee 1 or 2 Views Left Ordering Physician MD AMBROSIO KIEL JOHASEN Accession Number [id number] CPT4 Codes 03546 () Reason For Exam pain Report LEFT [...] AHMAD Transcribed Date and Time: 07/04/2020 8:35 [place], [place] [facility] Incoming Radiology Results From [facility] - 07/04/2020 8:35 AM EDT Patient Name: IZABELA LONDON ---Diagnostic Radiology--- Exam Date/Time 07/04/2020 08:10:00 EDT Exam CR Knee 1 or 2 Views Left Ordering Physician MD AMBROSIO KIEL JOHASEN Accession Number [id number] CPT4 Codes 77144 () Reason For Exam pain Report LEFT [...] AHMAD Transcribed Date and Time: 07/04/2020 8:35 [place], [place] NM BONE SCAN WHOLE BODYon Patient Name: IZABELA LONDON ---[facility] Med--- Exam Date/Time 05/24/2020 12:23:26 EDT Exam NM Bone Imaging Whole Body Ordering Physician JERAMIE SARMIENTO Accession Number [id number] CPT4 Codes 89323 () Reason For Exam Prostate cancer , [...] R Transcribed Date and Time: 05/24/2020 2:25 [place] [facility], [facility] Incoming Radiology Results From [facility] - 05/24/2020 2:25 PM EDT Patient Name: IZABELA LONDON ---[facility] Med--- Exam Date/Time 05/24/2020 12:23:26 EDT Exam NM Bone Imaging Whole Body Ordering Physician JERAMIE SARMIENTO Accession Number [id number] CPT4 Codes 24026 () Reason For Exam Prostate cancer , [...] R Transcribed Date and Time: 05/24/2020 2:25 [place] CT PELVIS W CONTRAST Additio nal Contrast? Noneon 11-29-2019 Patient Name: IZABELA LONDON ---CT--- Exam Date/Time 11/29/2019 09:43:[address] Pelvis w/ Contrast (IV Only) Ordering Physician JERAMIE SARMIENTO Accession Number [id number] CPT4 Codes Q9967 (CT ISOVUE 370MG/ML&[id number]&ML &1), 03745 (CT Pelvis w/ Contrast (IV Only)) Reason [...] R Transcribed Date and Time: 11/29/2019 4:09 [facility] Work Phone: [facility], [facility] 11/29/2019 4:09 PM EST Patient Name: IZABELA LONDON ---CT--- Exam Date/Time 11/29/2019 09:43:[address] Pelvis w/ Contrast (IV Only) Ordering Physician JERAMIE SARMIENTO Accession Number [id number] CPT4 Codes Q9967 (CT ISOVUE 370MG/ML&[id number]&ML &1), 97749 (CT Pelvis w/ Contrast (IV Only)) Reason [...] Body Ordering Physician JERAMIE SARMIENTO Accession Number [id number] CPT4 Codes 81836 () Reason For Exam Prostate cancer , [...] Phone: [facility] Incoming Radiology Results From [facility] - 11/29/2019 3:33 PM EST Patient Name: IZABELA LONDON ---Nuc Med--- Exam Date/Time 11/29/2019 13:02:43 EST Exam NM Bone Imaging Whole Body Ordering Physician JERAMIE SARMIENTO Accession Number [id number] CPT4 Codes 63723 () Reason For Exam Prostate cancer , [...] Physician MD KIMBER, KADEEM CLANCY Accession Number [id number] CPT4 Codes 61599 () Reason For Exam M17.12 OSTEOARTHRITIS LEFT [...] Phone: [facility] Incoming Radiology Results From [facility] - 11/02/2019 11:40 AM EST Patient Name: IZABELA LONDON ---Diagnostic Radiology--- Exam Date/Time 11/02/2019 10:44:39 EST Exam CR Joint Survey Single View 1/More Joint Ordering Physician MD KIMBER, KADEEM CLANCY Accession Number [id number] CPT4 Codes 53582 () Reason For Exam M17.12 OSTEOARTHRITIS LEFT [...] Physician MD KIMBER, KADEEM CLANCY Accession Number [id number] CPT4 Codes 60358 () Reason For Exam Z96.652 POST LEFT [...] J Transcribed Date and Time: 08/03/2019 9:48 [facility] [place] [place] [facility] Incoming Radiology Results From [facility] - 08/03/2019 9:48 AM EDT Patient Name: IZABELA LONDON ---Diagnostic Radiology--- Exam Date/Time 08/03/2019 09:26:00 EDT Exam CR Knee 1 or 2 Views Left Ordering Physician MD KIMBER, KADEEM CLANCY Accession Number [id number] CPT4 Codes 40254 () Reason For Exam Z96.652 POST LEFT [...] J Transcribed Date and Time: 08/03/2019 9:48 [place] XR Knee Bilateral Standingon 08-03-2019 Patient Name: IZABELA LONDON ---Diagnostic Radiology--- Exam Date/Time 08/03/2019 09:26:00 EDT Exam CR Knee Standing AP Bilateral Ordering Physician MD KIMBER, KADEEM CLANCY Accession Number [id number] CPT4 Codes 72767 () Reason For Exam M17.12 PRIMARY OSTEOARTHRITIS [...] J Transcribed Date and Time: 08/03/2019 9:48 [place] [facility] Incoming Radiology Results From [facility] - 08/03/2019 9:48 AM EDT Patient Name: IZABELA LONDON ---Diagnostic Radiology--- Exam Date/Time 08/03/2019 09:26:00 EDT Exam CR Knee Standing AP Bilateral Ordering Physician MD KIMBER, KADEEM CLANCY Accession Number [id number] CPT4 Codes 58983 () Reason For Exam M17.12 PRIMARY OSTEOARTHRITIS [...] J Transcribed Date and Time: 08/03/2019 9:48 [place] Basic Metabolic Panelon 06-25 Anion gap [Moles/Vol] 9 mmol/L [place] Calcium [Mass/Vol] 9.0 mg/dL 8.4 - 10. 4 mg/dL [place] Chloride [Moles/Vol] 106 mmol/L 98 - 107 mmol/L [place] CO2 [Moles/Vol] 23 mmol/L 22 - 30 mmol/L [place] Creatinine [Mass/Vol] 0.75 mg/dL 0.52 - 1.25 mg/dL [place] EGFR IF NonAfrican [place] >60.0 >60 mL/min [place] Comment on above: Source- MDRD equatio n with creatinine calibration to IDMS(NKDEP) eGFR not recommended for drug dose adjustment GFR/1.73 sq M predicted among blacks MDRD (S/P/Bld) [Vol rate/Area] mL/min/{1.73_m2} >60 mL/min [place] Glucose [Mass/Vol] 153 mg/dL High 70 - 100 mg/dL [place], [place] Interpretation and review of laboratory results Abnormal [place] Potassium [Moles/Vol] 4.5 mmol/L 3.5 - 5.1 mmol/L [place] Sodium [Moles/Vol] 138 mmol/L 135 - 145 mmol/L [place] Urea nitrogen [Mass/Vol] 22 mg/dL High 7 - 20 mg/dL [place] Test Performed by [facility], [address], [place], [place] [address] [place] Hemoglobin and hematocrit, b gulshanodon 07-06-2019 Hematocrit (Bld) [Volume fraction] 44.1 % 40 - 52 % [place] Hemoglobin (Bld) [Mass/Vol] 14.5 g/dL 13 - 18 g/dL [place] Test Performed by [facility], [address], [place], [place] [address] [place] XR KNEE LEFT (1-2 VIEWS)on 0 07-05-2019 [facility] Incoming Radiology Results From [facility] - 07/05/2019 9:57 AM EDT Patient Name: IZABELA LONDON ---Diagnostic Radiology--- Exam Date/Time 07/05/2019 09:35:00 EDT Exam CR Knee 1 or 2 Views Left Ordering Physician GILDA TREJO NICHOLAS A Accession Number [id number] CPT4 Codes 81840 () Reason For Exam s/p TKA Report [...] RISA Transcribed Date and Time: 07/05/2019 9:57 [place] Patient Name: IZABELA LONDON ---Diagnostic Radiology--- Exam Date/Time 07/05/2019 09:35:00 EDT Exam CR Knee 1 or 2 Views Left Ordering Physician GILDA TREJO NICHOLAS A Accession Number [id number] CPT4 Codes 87204 () Reason For Exam s/p TKA Report [...] RISA Transcribed Date and Time: 07/05/2019 9:57 [place] Vital Signs Date Time Vital Sign Value Performing Clinician [facility] 08-02-2025 13:06-0400 Body height 177.8 cm Kristen Urias MD Work Phone: [facility] [email or web address] 08-02-2025 13:06-0400 Body mass index (BMI) [Ratio] 29.63 kg/m2 Kristen Urias MD Work Phone: [email or web address] 08-02-2025 13:06-0400 Body temperature 97.9 [degF] Kristen Urias MD Work Phone: [email or web address] 08-02-2025 13:06-0400 Body weight 93.67 kg Kristen Urias MD Work Phone: [facility] [email or web address] 08-02-2025 13:06-0400 Diastolic blood pressure 93 mm[Hg] Kristen Urias MD Work Phone: [facility] [email or web address] 08-02-2025 13:06-0400 Heart rate 83 /min Kristen Urias MD Work Phone: [facility] [email or web address] 08-02-2025 13:06-0400 SaO2% (BldA) [Mass fraction] 95 % Kristen Urias MD Work Phone: [email or web address] 08-02-2025 13:06-0400 Systolic blood pressure 162 mm[Hg] Kristen Urias MD Work Phone: [facility] [email or web address] 08-02-2025 12:59-0400 Diastolic blood pressure 98 mm[Hg] Bed 6 [facility] [email or web address] 08-02-2025 12:59-0400 Heart rate 83 /min Bed 6 [facility] [employer] 08-02-2025 12:59-0400 Respiratory rate 16 /min Bed [address] [facility] 08-02-2025 12:59-0400 Systolic blood pressure 127 mm[Hg] Bed [address] [facility] 08-02-2025 10:59-0400 Body mass index (BMI) [Ratio] 29.63 kg/m2 Bed [address] [facility] 08-02-2025 10:59-0400 Body temperature 97 [degF] Bed [address] [facility] 08-02-2025 10:59-0400 Body weight 93.67 kg Bed [address] [facility] 07-03-2025 11:33-0400 Body height 177.8 cm Jeramie Ching MD Work Phone: [facility] 07-03-2025 11:33-0400 Body mass index (BMI) [Ratio] 29.33 kg/m2 Jeramie Ching MD Work Phone: [facility] 07-03-2025 11:33-0400 Body temperature 97.5 [degF] Jeramie Ching MD Work Phone: [facility] 07-03-2025 11:33-0400 Body weight 92.72 kg Jeramie Ching MD Work Phone: [facility] [email or web address] 07-03-2025 11:33-0400 Diastolic blood pressure 87 mm[Hg] Jeramie Ching MD Work Phone: [facility] 07-03-2025 11:33-0400 Heart rate 102 /min Jeramie Ching MD Work Phone: [facility] 07-03-2025 11:33-0400 Systolic blood pressure 126 mm[Hg] Jeramie Ching MD Work Phone: [facility] [email or web address] 06-04-2025 09:40-0400 Body height 177.8 cm Kristen Urias MD Work Phone: [facility] [email or web address] 06-04-2025 09:40-0400 Body mass index (BMI) [Ratio] 29.56 kg/m2 Kristen Urias MD Work Phone: [facility] [email or web address] 06-04-2025 09:40-0400 Body temperature 97.3 [degF] Kristen Urias MD Work Phone: [email or web address] 06-04-2025 09:40-0400 Body weight 93.44 kg Kristen Urias MD Work Phone: [email or web address] 06-04-2025 09:40-0400 Diastolic blood pressure 77 mm[Hg] Kristen Urias MD Work Phone: [email or web address] 06-04-2025 09:40-0400 Heart rate 79 /min Kristen Urias MD Work Phone: [facility] [email or web address] 06-04-2025 09:40-0400 SaO2% (BldA) [Mass fraction] 98 % Kristensocorro Urias MD Work Phone: [email or web address] 06-04-2025 09:40-0400 Systolic blood pressure 138 mm[Hg] Kristen Urias MD Work Phone: [facility] [email or web address] 05-10-2025 12:39-0400 Diastolic blood pressure 71 mm[Hg] Chair 10 [facility] [email or web address] 05-10-2025 12:39-0400 Heart rate 51 /min Chair 10 [facility] [employer] 05-10-2025 12:39-0400 Respiratory rate 16 /min Chair 10 [facility] [email or web address] 05-10-2025 12:39-0400 Systolic blood pressure 149 mm[Hg] Chair 10 [facility] [email or web address] 05-10-2025 11:09-0400 Body temperature 97 [degF] Chair 10 [facility] [email or web address] 04-09-2025 10:07-0400 Body height 180.3 cm Kristen Urias MD Work Phone: [facility] [email or web address] 04-09-2025 10:07-0400 Body mass index (BMI) [Ratio] 27.67 kg/m2 Kristen Urias MD Work Phone: [email or web address] 04-09-2025 10:07-0400 Body temperature 97.5 [degF] Kristen Urias MD Work Phone: [email or web address] 04-09-2025 10:07-0400 Body weight 89.95 kg Kristen Urias MD Work Phone: [email or web address] 04-09-2025 10:07-0400 Diastolic blood pressure 70 mm[Hg] Kristen Urias MD Work Phone: [email or web address] 04-09-2025 10:07-0400 Heart rate 58 /min Kristen Adonay COY Work Phone: [email or web address] 04-09-2025 10:07-0400 SaO2% (BldA) [Mass fraction] 98 % Kristen Adonay COY Work Phone: [email or web address] 04-09-2025 10:07-0400 Systolic blood pressure 131 mm[Hg] Kristen Adonay COY Work Phone: [email or web address] 03-05-2025 09:35-0400 Body height 180.3 cm Kristen Adonay COY Work Phone: [email or web address] 03-05-2025 09:35-0400 Body mass index (BMI) [Ratio] 28.04 kg/m2 Kristen Adonay COY Work Phone: [email or web address] 03-05-2025 09:35-0400 Body temperature 97.2 [degF] Kristen Adonay COY Work Phone: [email or web address] 03-05-2025 09:35-0400 Body weight 91.13 kg Rkisten Adonay COY Work Phone: [email or web address] 03-05-2025 09:35-0400 Diastolic blood pressure 70 mm[Hg] Kristen Adonay COY Work Phone: [employer] 03-05-2025 09:35-0400 Heart rate 65 /min Kristen Adonay COY Work Phone: [email or web address] 03-05-2025 09:35-0400 SaO2% (BldA) [Mass fraction] 98 % Kristen Adonay COY Work Phone: [email or web address] 03-05-2025 09:35-0400 Systolic blood pressure 138 mm[Hg] Kristensocorro Urias MD Work Phone: [email or web address] 02-13-2025 12:19-0400 Diastolic blood pressure 61 mm[Hg] Chair 23 [employer] 02-13-2025 12:19-0400 Heart rate 69 /min Chair [address] [facility] 02-13-2025 12:19-0400 Respiratory rate 16 /min Chair [address] [facility] 02-13-2025 12:19-0400 Systolic blood pressure 132 mm[Hg] Chair [address] [facility] 02-13-2025 11:03-0400 Body temperature 96.91 [degF] Chair [address] [facility] 02-13-2025 10:17-0400 Body height 180.3 cm Kristen Urias MD Work Phone: [facility] 02-13-2025 10:17-0400 Body mass index (BMI) [Ratio] 27.49 kg/m2 Kristen Urias MD Work Phone: [facility] 02-13-2025 10:17-0400 Body temperature 97.2 [degF] Kristen Urias MD Work Phone: [facility] 02-13-2025 10:17-0400 Body weight 89.36 kg Kristen Urias MD Work Phone: [facility] 02-13-2025 10:17-0400 Diastolic blood pressure 67 mm[Hg] Kristen Urias MD Work Phone: [facility] 02-13-2025 10:17-0400 Heart rate 62 /min Kristen Urias MD Work Phone: [facility] 02-13-2025 10:17-0400 SaO2% (BldA) [Mass fraction] 97 % Kristen Urias MD Work Phone: [facility] 02-13-2025 10:17-0400 Systolic blood pressure 127 mm[Hg] Kristen Urias MD Work Phone: [facility] [email or web address] 02-12-2025 09:27-0400 Body height 180.3 cm Jeramie Ching MD Work Phone: [facility] [email or web address] 02-12-2025 09:27-0400 Body mass index (BMI) [Ratio] 27.35 kg/m2 Jeramie Ching MD Work Phone: [facility] [employer] 02-12-2025 09:27-0400 Body temperature 97.39 [degF] Jeramie Ching MD Work Phone: [email or web address] 02-12-2025 09:27-0400 Body weight 88.91 kg Jeramie Ching MD Work Phone: [facility] [employer] 02-12-2025 09:27-0400 Diastolic blood pressure 70 mm[Hg] Jeramie Ching MD Work Phone: [facility] [employer] 02-12-2025 09:27-0400 Heart rate 64 /min Jeramie Ching MD Work Phone: [facility] [employer] 02-12-2025 09:27-0400 SaO2% (BldA) [Mass fraction] 95 % Jeramie Ching MD Work Phone: [facility] [email or web address] 02-12-2025 09:27-0400 Systolic blood pressure 130 mm[Hg] Jeramie Ching MD Work Phone: [facility] [email or web address] 11-21-2024 12:39-0500 Diastolic blood pressure 54 mm[Hg] Chair 14 [facility] [email or web address] 11-21-2024 12:39-0500 Heart rate 60 /min Chair 14 [facility] [employer] 11-21-2024 12:39-0500 Systolic blood pressure 127 mm[Hg] Chair 14 [email or web address] 11-21-2024 10:21-0500 Body height 180.3 cm Kristen Urias MD Work Phone: [email or web address] 11-21-2024 10:21-0500 Body mass index (BMI) [Ratio] 27.76 kg/m2 Kristen Urias MD Work Phone: [email or web address] 11-21-2024 10:21-0500 Body temperature 97.2 [degF] Kristen Urias MD Work Phone: [employer] 11-21-2024 10:21-0500 Body weight 90.22 kg Kristen Urias MD Work Phone: [employer] 11-21-2024 10:21-0500 Diastolic blood pressure 70 mm[Hg] Kristen Urias MD Work Phone: [employer] 11-21-2024 10:21-0500 Heart rate 63 /min Kristen Urias MD Work Phone: [email or web address] 11-21-2024 10:21-0500 SaO2% (BldA) [Mass fraction] 98 % Kristen Urias MD Work Phone: [email or web address] 11-21-2024 10:21-0500 Systolic blood pressure 130 mm[Hg] Kristen Urias MD Work Phone: [facility] [email or web address] 10-03-2024 08:47-0500 Diastolic blood pressure 60 mm[Hg] Jeramie Ching MD Work Phone: [facility] [employer] 10-03-2024 08:47-0500 Systolic blood pressure 120 mm[Hg] Jeramie Ching MD Work Phone: [facility] [employer] 10-03-2024 08:40-0500 Body height 180.3 cm Jeramie Ching MD Work Phone: [facility] [employer] 10-03-2024 08:40-0500 Body mass index (BMI) [Ratio] 27.53 kg/m2 Jeramie Ching MD Work Phone: [facility] [employer] 10-03-2024 08:40-0500 Body temperature 97 [degF] Jeramie Ching MD Work Phone: [facility] [employer] 10-03-2024 08:40-0500 Body weight 89.5 kg Jeramie Ching MD Work Phone: [facility] [employer] 10-03-2024 08:40-0500 Heart rate 58 /min Jeramie Ching MD Work Phone: [facility] [employer] 10-03-2024 08:40-0500 SaO2% (BldA) [Mass fraction] 96 % Jeramie Ching MD Work Phone: [facility] [employer] 08-29-2024 12:25-0500 Diastolic blood pressure 69 mm[Hg] Bed 7 [facility] [employer] 08-29-2024 12:25-0500 Heart rate 65 /min Bed 7 [facility] [employer] 08-29-2024 12:25-0500 Respiratory rate 16 /min Bed 7 [facility] [employer] 08-29-2024 12:25-0500 Systolic blood pressure 145 mm[Hg] Bed 7 [facility] [employer] 08-29-2024 11:14-0500 Body height 180.3 cm Kristen Urias MD Work Phone: [facility] [employer] 08-29-2024 11:14-0500 Body mass index (BMI) [Ratio] 27.21 kg/m2 Kristen Urias MD Work Phone: [employer] 08-29-2024 11:14-0500 Body temperature 97.2 [degF] Kristen Urias MD Work Phone: [employer] 08-29-2024 11:14-0500 Body weight 88.45 kg Kristen Urias MD Work Phone: [facility] [employer] 08-29-2024 11:14-0500 Diastolic blood pressure 70 mm[Hg] Kristen Urias MD Work Phone: [facility] [employer] 08-29-2024 11:14-0500 Heart rate 57 /min Kristen Urias MD Work Phone: [employer] 08-29-2024 11:14-0500 SaO2% (BldA) [Mass fraction] 96 % Kristen Urias MD Work Phone: [facility] [email or web address] 08-29-2024 11:14-0500 Systolic blood pressure 124 mm[Hg] Kristen Urias MD Work Phone: [facility] [employer] 07-20-2024 14:52-0400 Body mass index (BMI) [Ratio] 27.5 kg/m2 Jeramie Ching MD Work Phone: [employer] 07-20-2024 14:52-0400 Body weight 89.45 kg Jeramie Ching MD Work Phone: [employer] 07-20-2024 14:52-0400 Diastolic blood pressure 70 mm[Hg] Jeramie Ching MD Work Phone: [facility] [employer] 07-20-2024 14:52-0400 Systolic blood pressure 130 mm[Hg] Jeramie Ching MD Work Phone: [facility] [employer] 06-24-2024 07:53-0400 Body temperature 98.1 [degF] Maria Antonia Baker MD Work Phone: [facility] [employer] 06-24-2024 07:53-0400 Diastolic blood pressure 59 mm[Hg] Maria Antonia Baker MD Work Phone: [facility] [employer] 06-24-2024 07:53-0400 Heart rate 65 /min Maria Antonia Baker MD Work Phone: [facility] [employer] 06-24-2024 07:53-0400 Respiratory rate 16 /min Maria Antonia Baker MD Work Phone: [facility] [employer] 06-24-2024 07:53-0400 SaO2% (BldA) [Mass fraction] 96 % Maria Antonia Baker MD Work Phone: [facility] [employer] 06-24-2024 07:53-0400 Systolic blood pressure 117 mm[Hg] Maria Antonia Baker MD Work Phone: [facility] [employer] 06-21-2024 15:48-0400 Body height 180.3 cm Maria Antonia Baker MD Work Phone: [facility] [employer] 06-06-2024 14:10-0400 Diastolic blood pressure 69 mm[Hg] Chair 14 [facility] [employer] 06-06-2024 14:10-0400 Heart rate 63 /min Chair 14 [facility] [employer] 06-06-2024 14:10-0400 Respiratory rate 16 /min Chair 14 [facility] [employer] 06-06-2024 14:10-0400 Systolic blood pressure 144 mm[Hg] Chair 14 [facility] [email or web address] 06-06-2024 12:39-0400 Body height 180.3 cm Kristen Urias MD Work Phone: [facility] [employer] 06-06-2024 12:39-0400 Body mass index (BMI) [Ratio] 28.19 kg/m2 Kristen Urias MD Work Phone: [facility] [employer] 06-06-2024 12:39-0400 Body temperature 97.2 [degF] Kristen Urias MD Work Phone: [employer] 06-06-2024 12:39-0400 Body weight 91.63 kg Kristen Urias MD Work Phone: [employer] 06-06-2024 12:39-0400 Diastolic blood pressure 68 mm[Hg] Kristen Urias MD Work Phone: [employer] 06-06-2024 12:39-0400 Heart rate 65 /min Kristen Urias MD Work Phone: [employer] 06-06-2024 12:39-0400 SaO2% (BldA) [Mass fraction] 100 % Kristen Urias MD Work Phone: [employer] 06-06-2024 12:39-0400 Systolic blood pressure 136 mm[Hg] Kristen Urias MD Work Phone: [employer] 05-31-2024 10:33-0400 Body height 180.3 cm Abigailelizabeth Oslen DATA PROGRAMMER - [employer] T[employer]ER Work Phone: [employer] 05-31-2024 10:33-0400 Diastolic blood pressure 57 mm[Hg] Abigail Olsen DATA PROGRAMMER - W[employer] TENDER Work Phone: [employer] 05-31-2024 10:33-0400 Heart rate 72 /min Abigail Olsen DATA PROGRAMMER - WATERSH[employer] T[employer]ER Work Phone: [employer] 05-31-2024 10:33-0400 SaO2% (BldA) [Mass fraction] 90 % Abigail Olsen DATA PROGRAMMER - W[employer] T[employer]ER Work Phone: [employer] 05-31-2024 10:33-0400 Systolic blood pressure 94 mm[Hg] Abigail Olsen DATA PROGRAMMER - WATERSH[employer] TENDER Work Phone: [employer] 03-07-2024 11:34-0400 Diastolic blood pressure 64 mm[Hg] Chair 19 [employer] 03-07-2024 11:34-0400 Heart rate 56 /min Chair 19 [employer] 03-07-2024 11:34-0400 Systolic blood pressure 136 mm[Hg] Chair 19 [employer] 05-14-2024 09:58-0400 Body height 180.3 cm Kristen Urias MD Work Phone: [facility] [employer] 03-07-2024 09:58-0400 Body mass index (BMI) [Ratio] 28.28 kg/m2 Kristen Urias MD Work Phone: [facility] [employer] 03-07-2024 09:58-0400 Body temperature 97.2 [degF] Kristen Urias MD Work Phone: [facility] [employer] 03-07-2024 09:58-0400 Body weight 91.99 kg Kristen Urias MD Work Phone: [facility] [employer] 03-07-2024 09:58-0400 Diastolic blood pressure 80 mm[Hg] Kristen Urias MD Work Phone: [facility] [employer] 03-07-2024 09:58-0400 Heart rate 84 /min Kristen Urias MD Work Phone: [facility] [employer] 03-07-2024 09:58-0400 SaO2% (BldA) [Mass fraction] 95 % Kristen Urias MD Work Phone: [facility] [employer] 03-07-2024 09:58-0400 Systolic blood pressure 158 mm[Hg] Kristen Urias MD Work Phone: [facility] [employer] 02-07-2024 09:59-0400 Diastolic blood pressure 64 mm[Hg] Jeramie Cihng MD Work Phone: [facility] [employer] 02-07-2024 09:59-0400 Systolic blood pressure 112 mm[Hg] Jeramie Ching MD Work Phone: [facility] [employer] 02-07-2024 09:49-0400 Body height 180.3 cm Jeramie Ching MD Work Phone: [facility] [employer] 02-07-2024 09:49-0400 Body mass index (BMI) [Ratio] 28.59 kg/m2 Jeramie Ching MD Work Phone: [facility] [employer] 02-07-2024 09:49-0400 Body temperature 97.2 [degF] Jeramie Ching MD Work Phone: [facility] [employer] 02-07-2024 09:49-0400 Body weight 92.99 kg Jeramie Ching MD Work Phone: [facility] [employer] 02-07-2024 09:49-0400 Heart rate 69 /min Jeramie Ching MD Work Phone: [facility] [employer] 02-07-2024 09:49-0400 SaO2% (BldA) [Mass fraction] 97 % Jeramie Ching MD Work Phone: [facility] [employer] 12-22-2023 08:46-0500 Body height 180.3 cm Jeramie Ching MD Work Phone: [facility] [employer] 12-22-2023 08:46-0500 Body mass index (BMI) [Ratio] 29.01 kg/m2 Jeramie Ching MD Work Phone: [facility] [employer] 12-22-2023 08:46-0500 Body temperature 97.9 [degF] Jeramie Ching MD Work Phone: [facility] [employer] 12-22-2023 08:46-0500 Body weight 94.35 kg Jeramie Ching MD Work Phone: [facility] [employer] 12-22-2023 08:46-0500 Diastolic blood pressure 78 mm[Hg] Jeramie Ching MD Work Phone: [facility] [employer] 12-22-2023 08:46-0500 Heart rate 58 /min Jeramie Ching MD Work Phone: [facility] [employer] 12-22-2023 08:46-0500 SaO2% (BldA) [Mass fraction] 98 % Jeramie Ching MD Work Phone: [employer] 12-22-2023 08:46-0500 Systolic blood pressure 140 mm[Hg] Jeramie Ching MD Work Phone: [facility] [employer] 12-14-2023 12:24-0500 Diastolic blood pressure 63 mm[Hg] Chair 24 [facility] [employer] 12-14-2023 12:24-0500 Heart rate 59 /min Chair 24 [employer] 12-14-2023 12:24-0500 Systolic blood pressure 149 mm[Hg] Chair 24 [facility] [employer] 12-14-2023 11:05-0500 Body mass index (BMI) [Ratio] 29.11 kg/m2 Chair 24 [facility] [employer] 12-14-2023 11:05-0500 Body temperature 97.59 [degF] Chair 24 [facility] [employer] 12-14-2023 11:05-0500 Body weight 94.67 kg Chair 24 [facility] [employer] 12-14-2023 11:05-0500 Respiratory rate 20 /min Chair 24 [facility] [employer] 12-07-2023 09:03-0500 Body height 180.3 cm Kristen Urias MD Work Phone: [facility] [employer] 12-07-2023 09:03-0500 Body mass index (BMI) [Ratio] 29.25 kg/m2 Kristen Urias MD Work Phone: [facility] [employer] 12-07-2023 09:03-0500 Body temperature 97.7 [degF] Kristen Urias MD Work Phone: [facility] [employer] 12-07-2023 09:03-0500 Body weight 95.12 kg Kristen Urias MD Work Phone: [facility] [employer] 12-07-2023 09:03-0500 Diastolic blood pressure 82 mm[Hg] Kristen Urias MD Work Phone: [facility] [employer] 12-07-2023 09:03-0500 Heart rate 107 /min Kristen Urias MD Work Phone: [facility] [employer] 12-07-2023 09:03-0500 SaO2% (BldA) [Mass fraction] 95 % Kristen Urias MD Work Phone: [facility] [employer] 12-07-2023 09:03-0500 Systolic blood pressure 145 mm[Hg] Kristen Urias MD Work Phone: [facility] [employer] 09-21-2023 11:05-0500 Body mass index (BMI) [Ratio] 29.05 kg/m2 Chair 18 [facility] [employer] 09-21-2023 11:05-0500 Body temperature 97 [degF] Chair 18 [facility] [employer] 09-21-2023 11:05-0500 Body weight 94.48 kg Chair 18 [facility] [employer] 09-21-2023 11:05-0500 Diastolic blood pressure 72 mm[Hg] Chair [address] [facility] 09-21-2023 11:05-0500 Heart rate 63 /min Chair [address] [facility] 09-21-2023 11:05-0500 Respiratory rate 18 /min Chair [address] [facility] 09-21-2023 11:05-0500 Systolic blood pressure 146 mm[Hg] Chair 18 [facility] [employer] 09-07-2023 09:06-0500 Body height 180.3 cm Kristen Urias MD Work Phone: [facility] [employer] 09-07-2023 09:06-0500 Body mass index (BMI) [Ratio] 29.22 kg/m2 Kristen Urias MD Work Phone: [facility] [employer] 09-07-2023 09:06-0500 Body temperature 97.3 [degF] Kristen Urias MD Work Phone: [facility] [employer] 09-07-2023 09:06-0500 Body weight 95.03 kg Kristen Urias MD Work Phone: [facility] [employer] 09-07-2023 09:06-0500 Diastolic blood pressure 80 mm[Hg] Kristen Urias MD Work Phone: [facility] [employer] 09-07-2023 09:06-0500 Heart rate 62 /min Kristen Urias MD Work Phone: [facility] [employer] 09-07-2023 09:06-0500 SaO2% (BldA) [Mass fraction] 100 % Kristen Urias MD Work Phone: [employer] 09-07-2023 09:06-0500 Systolic blood pressure 150 mm[Hg] Kristen Urias MD Work Phone: [facility] [employer] 06-29-2023 09:36-0400 Body height 180.3 cm Kristen Urias MD Work Phone: [employer] 06-29-2023 09:36-0400 Body mass index (BMI) [Ratio] 29.61 kg/m2 Kristen Uiras MD Work Phone: [facility] [employer] 06-29-2023 09:36-0400 Body temperature 97.2 [degF] Kristen Urias MD Work Phone: [facility] [employer] 06-29-2023 09:36-0400 Body weight 96.3 kg Kristen Urias MD Work Phone: [facility] [employer] 06-29-2023 09:36-0400 Diastolic blood pressure 76 mm[Hg] Kristen Urias MD Work Phone: [facility] [employer] 06-29-2023 09:36-0400 Heart rate 63 /min Kristen Urias MD Work Phone: [facility] [employer] 06-29-2023 09:36-0400 SaO2% (BldA) [Mass fraction] 96 % Kristen Urias MD Work Phone: [facility] [employer] 06-29-2023 09:36-0400 Systolic blood pressure 158 mm[Hg] Kristen Urias MD Work Phone: [facility] [employer] 03-25-2023 12:29-0400 Diastolic blood pressure 58 mm[Hg] Chair 18 [facility] [employer] 03-25-2023 12:29-0400 Heart rate 63 /min Chair 18 [facility] [employer] 03-25-2023 12:29-0400 Respiratory rate 18 /min Chair 18 [facility] [employer] 03-25-2023 12:29-0400 Systolic blood pressure 126 mm[Hg] Chair 18 [facility] [employer] 03-25-2023 10:47-0400 Body temperature 97.59 [degF] Chair 18 [facility] [employer] 03-25-2023 09:53-0400 Body height 180.3 cm Kristen Urias MD Work Phone: [facility] [employer] 03-25-2023 09:53-0400 Body mass index (BMI) [Ratio] 28.73 kg/m2 Kristen Urias MD Work Phone: [facility] [employer] 03-25-2023 09:53-0400 Body temperature 97.39 [degF] Kristen Urias MD Work Phone: [facility] [employer] 03-25-2023 09:53-0400 Body weight 93.44 kg Kristen Urias MD Work Phone: [facility] [employer] 03-25-2023 09:53-0400 Diastolic blood pressure 77 mm[Hg] Kristen Urias MD Work Phone: [facility] [employer] 03-25-2023 09:53-0400 Heart rate 69 /min Kristen Urias MD Work Phone: [facility] [employer] 03-25-2023 09:53-0400 SaO2% (BldA) [Mass fraction] 95 % Kristen Urias MD Work Phone: [facility] [employer] 03-25-2023 09:53-0400 Systolic blood pressure 161 mm[Hg] Kristen Urias MD Work Phone: [facility] [employer] 02-03-2023 07:39-0400 Body height 180.3 cm Jeramie Ching MD Work Phone: [facility] [employer] 02-03-2023 07:39-0400 Body mass index (BMI) [Ratio] 29.74 kg/m2 Jeramie Ching MD Work Phone: [facility] [employer] 02-03-2023 07:39-0400 Body weight 96.71 kg Jeramie Ching MD Work Phone: [facility] [employer] 02-03-2023 07:39-0400 Diastolic blood pressure 64 mm[Hg] Jeramie Ching MD Work Phone: [facility] [employer] 02-03-2023 07:39-0400 Heart rate 60 /min Jeramie Ching MD Work Phone: [facility] [employer] 02-03-2023 07:39-0400 SaO2% (BldA) [Mass fraction] 97 % Jeramie Ching MD Work Phone: [facility] [employer] 02-03-2023 07:39-0400 Systolic blood pressure 122 mm[Hg] Jeramie Ching MD Work Phone: [facility] [employer] 12-23-2022 11:32-0500 Diastolic blood pressure 64 mm[Hg] Chair 11 [facility] [employer] 12-23-2022 11:32-0500 Heart rate 62 /min Chair 11 [facility] [employer] 12-23-2022 11:32-0500 Systolic blood pressure 134 mm[Hg] Chair 11 [facility] [employer] 12-23-2022 10:34-0500 Body temperature 97.11 [degF] Chair 11 [facility] [employer] 12-23-2022 10:34-0500 Respiratory rate 20 /min Chair 11 [facility] [employer] 12-23-2022 09:51-0500 Body height 180.3 cm Kristen Urias MD Work Phone: [facility] [employer] 12-23-2022 09:51-0500 Body mass index (BMI) [Ratio] 28.31 kg/m2 Kristen Urias MD Work Phone: [facility] [employer] 12-23-2022 09:51-0500 Body temperature 97.9 [degF] Kristen Urias MD Work Phone: [facility] [employer] 12-23-2022 09:51-0500 Body weight 92.08 kg Kristen Urias MD Work Phone: [facility] [employer] 12-23-2022 09:51-0500 Diastolic blood pressure 76 mm[Hg] Kristen Urias MD Work Phone: [facility] [employer] 12-23-2022 09:51-0500 Heart rate 64 /min Kristen Urias MD Work Phone: [facility] [employer] 12-23-2022 09:51-0500 SaO2% (BldA) [Mass fraction] 98 % Kristen Urias MD Work Phone: [facility] [employer] 12-23-2022 09:51-0500 Systolic blood pressure 126 mm[Hg] Kristen Urias MD Work Phone: [facility] [employer] 09-24-2022 13:00-0500 Diastolic blood pressure 63 mm[Hg] Bed 7 [facility] [employer] 09-24-2022 13:00-0500 Heart rate 66 /min Bed 7 [facility] [employer] 09-24-2022 13:00-0500 Respiratory rate 16 /min Bed 7 [facility] [employer] 09-24-2022 13:00-0500 Systolic blood pressure 123 mm[Hg] Bed 7 [facility] [employer] 09-24-2022 10:40-0500 Body height 180.3 cm Bed [address] [facility] 09-24-2022 10:40-0500 Body mass index (BMI) [Ratio] 28.03 kg/m2 Bed [address] [facility] 09-24-2022 10:40-0500 Body temperature 98.01 [degF] Bed [address] [facility] 09-24-2022 10:40-0500 Body weight 91.17 kg Bed [address] [facility] 06-25-2022 12:32-0400 Diastolic blood pressure 58 mm[Hg] Kristen Urias MD Work Phone: [facility] 06-25-2022 12:32-0400 Heart rate 59 /min Kristen Urias MD Work Phone: [facility] 06-25-2022 12:32-0400 Respiratory rate 18 /min Kristen Urias MD Work Phone: [facility] 06-25-2022 12:32-0400 Systolic blood pressure 124 mm[Hg] Kristen Urias MD Work Phone: [facility] 06-25-2022 11:18-0400 Body mass index (BMI) [Ratio] 28.95 kg/m2 Kristen Urias MD Work Phone: [facility] 06-25-2022 11:18-0400 Body temperature 97.81 [degF] Kristen Urias MD Work Phone: [facility] 06-25-2022 11:18-0400 Body weight 94.17 kg Kristen Urias MD Work Phone: [facility] 04-02-2022 13:41-0400 Diastolic blood pressure 67 mm[Hg] Kristen Urias MD Work Phone: [facility] 04-02-2022 13:41-0400 Heart rate 55 /min Kristen Urias MD Work Phone: [facility] 04-02-2022 13:41-0400 Respiratory rate 18 /min Kristen Urias MD Work Phone: [facility] 04-02-2022 13:41-0400 Systolic blood pressure 134 mm[Hg] Kristen Urias MD Work Phone: [facility] 04-02-2022 12:44-0400 Body mass index (BMI) [Ratio] 29.71 kg/m2 Kristen Adonay COY Work Phone: [facility] 04-02-2022 12:44-0400 Body temperature 97 [degF] Kristen Adonay COY Work Phone: [facility] 04-02-2022 12:44-0400 Body weight 96.62 kg Kristen Adonay COY Work Phone: [facility] 01-08-2022 14:38-0400 Diastolic blood pressure 65 mm[Hg] Kristen Adonay COY Work Phone: [facility] 01-08-2022 14:38-0400 Heart rate 64 /min Kristensocorro Urias MD Work Phone: [facility] 01-08-2022 14:38-0400 Systolic blood pressure 125 mm[Hg] Kristen Adonay COY Work Phone: [facility] 01-08-2022 13:43-0400 Body mass index (BMI) [Ratio] 30.32 kg/m2 Kristen Adonay COY Work Phone: [facility] 01-08-2022 13:43-0400 Body temperature 97 [degF] Kristen Adonay COY Work Phone: [facility] 01-08-2022 13:43-0400 Body weight 98.61 kg Kristen Urias MD Work Phone: [facility] 01-08-2022 13:43-0400 Respiratory rate 18 /min Kristen Urias MD Work Phone: [facility] 07-17-2021 15:35-0400 Diastolic blood pressure 66 mm[Hg] Kristen Adonay COY Work Phone: [facility] Work Phone: 07-17-2021 15:35-0400 Heart rate 65 /min Kristen Urias MD Work Phone: [facility] Work Phone: 07-17-2021 15:35-0400 Respiratory rate 16 /min Kristen Adonay MD Work Phone: [facility] Work Phone: 07-17-2021 15:35-0400 Systolic blood pressure 121 mm[Hg] Kristen Urias MD Work Phone: [facility] Work Phone: 07-17-2021 14:49-0400 Body height 180.3 cm Kristen Urias MD Work Phone: [facility] Work Phone: 07-17-2021 14:49-0400 Body mass index (BMI) [Ratio] 30.59 kg/m2 Kristen Adonay COY Work Phone: [facility] Work Phone: 07-17-2021 14:49-0400 Body temperature 97.59 [degF] Kristensocorro Urias MD Work Phone: [facility] Work Phone: 07-17-2021 14:49-0400 Body weight 99.47 kg Kristensocorro Urias MD Work Phone: [facility] Work Phone: [...] 72 /min Kristen Urias MD Work Phone: [facility] Work Phone: 04-24-2021 14:50-0400 Respiratory rate 18 /min Kristen Urias MD Work Phone: [facility] Work Phone: 04-24-2021 14:50-0400 Systolic blood pressure 147 mm[Hg] Kristen Urias MD Work Phone: [facility] Work Phone: 12-30-2020 15:05-0500 BP Diastolic 71 mm[Hg] Jeramie CHO Work Phone: 12-30-2020 15:05-0500 BP Systolic 130 mm[Hg] Jeramie CHO Work Phone: 12-30-2020 15:05-0500 Pulse (Heart Rate) 70 /min Jeramie CHO Work Phone: 12-30-2020 14:33-0500 BMI (Body Mass Index) 33.45 kg/m2 Jeramie CHO Work Phone: 12-30-2020 14:33-0500 Body Temperature 98.1 [degF] Jeramie CHO Work Phone: 12-30-2020 14:33-0500 Body weight 99.79 kg Jeramie CHO Work Phone: 12-30-2020 14:33-0500 Respiratory Rate 18 /min Jeramie CHO Work Phone: 07-06-2019 13:19-0400 Body Temperature 97.81 [degF] Kadeem [facility] [employer], [place] 07-06-2019 13:19-0400 BP Diastolic 60 mm[Hg] [facility] [place] 07-06-2019 13:19-0400 BP Systolic 115 mm[Hg] [facility] [place] 07-06-2019 13:19-0400 Pulse (Heart Rate) 51 /min [facility] [place] 07-06-2019 13:19-0400 Pulse Oximetry 94 % [facility] [place] 07-06-2019 13:19-0400 Respiratory Rate 20 /min [facility]em [facility], [place] 07-05-2019 06:05-0400 BMI (Body Mass Index) 32.5 kg/m2 [facility] [place] 07-05-2019 06:05-0400 Body weight 105.69 kg [facility] [place] 07-05-2019 06:05-0400 Height 180.3 cm [facility] [place] 06-28-2019 09:58-0400 BMI (Body Mass Index) 32.64 kg/m2 [facility], [place] 06-28-2019 09:58-0400 Body Temperature 98.4 [degF] [facility] [place] 06-28-2019 09:58-0400 Body weight 106.14 [facility] [place] 06-28-2019 09:58-0400 BP Diastolic 75 mm[Hg] [facility] [place] 06-28-2019 09:58-0400 BP Systolic 136 mm[Hg] [facility] [place] 06-28-2019 09:58-0400 Height 180.3 cm [facility] [place] 06-28-2019 09:58-0400 Pulse (Heart Rate) 66 /min [facility] [place] 06-28-2019 09:58-0400 Pulse Oximetry 96 % [facility] [place] 06-28-2019 09:58-0400 Respiratory Rate 16 /min [facility] [place] Encounters Encounter Date Encounter Type Care Provider Facility Start: 08-15-2025 End: 08-16-2025 Emergency department [facility] Start: 08-15-2025 End: 08-15-2025 Refill Jeramie Ching MD Work Phone: [facility] Comment on above: Elevated prostate specific antigen (PSA) Start: 08-02-2025 End: 08-02-2025 Office outpatient visit 25 minutes Kristen Urias MD Work Phone: [facility] Comment on above: Malignant neoplasm metastatic to bone (H CC) (Primary Dx) Start: 08-02-2025 End: 08-02-2025 ambulatory Jose Still MD Work Phone: [facility] Comment on above: Malignant neoplasm of prostate (HCC) (Pr imary Dx); Malignant neoplasm metastatic to bone (HCC); Prostate cancer (HCC) Start: 07-27-2025 End: 07-27-2025 Orders Only Kristen Urias MD Work Phone: [facility] Comment on above: Malignant neoplasm metastatic to bone (H CC) (Primary Dx); Prostate cancer (HCC) Start: 07-03-2025 End: 07-03-2025 Office outpatient visit 15 minutes Jeramie Ching MD Work Phone: [facility] [place] Comment on above: Ingrown nail of great toe of right foot (Primary Dx) Start: 07-03-2025 End: 07-03-2025 ambulatory JERAMIE [facility] Start: 07-02-2025 End: 07-03-2025 ambulatory Bernadette Cheng RN [facility] Clinical Communication Start: 07-02-2025 End: 07-03-2025 Patient encounter procedure Bernadette Cheng RN [facility] al Communication Start: 06-28-2025 End: 06-28-2025 ambulatory Corinne Cha [facility] Lauren Childress Comment on above: Malignant neoplasm metastatic to bone (H CC) Start: 06-04-2025 End: 06-04-2025 Office outpatient visit 25 minutes Kristen Urias MD Work Phone: [facility] Comment on above: Malignant neoplasm metastatic to bone (H CC) (Primary Dx) Start: 06-04-2025 End: 06-04-2025 ambulatory KRISTEN [facility] Start: 05-10-2025 End: 05-10-2025 ambulatory Jose Still MD Work Phone: [facility] Comment on above: Prostate cancer (HCC) (Primary Dx); Malignant neoplasm metastatic to bone (HCC) Start: 05-09-2025 End: 07-13-2025 ambulatory Denise Martin RN [facility] Clinical Communication Start: 05-09-2025 End: 07-13-2025 Patient encounter procedure Denise Martin RN [facility] Communication Start: 05-04-2025 End: 05-04-2025 Orders Only Kristen Urias MD Work Phone: [facility] Comment on above: Malignant neoplasm metastatic to bone (H CC) (Primary Dx); Prostate cancer (HCC) Start: 04-09-2025 End: 04-09-2025 Office outpatient visit 25 minutes Kristen Urias MD Work Phone: [facility] Comment on above: Malignant neoplasm metastatic to bone (H CC) (Primary Dx); Prostate cancer (HCC) Start: 04-09-2025 End: 04-09-2025 ambulatory KRISTEN [facility] Start: 03-16-2025 End: 03-16-2025 Telephone encounter Bhanu Diaz PharmD [facility] Start: 03-06-2025 End: 03-06-2025 Telephone encounter Bhanu Diaz PharmD [facility] Start: 03-05-2025 End: 03-05-2025 Office outpatient visit 40 minutes Kristen Urias MD Work Phone: [facility] Comment on above: Malignant neoplasm metastatic to bone (H CC) (Primary Dx) Start: 03-05-2025 End: 03-05-2025 Refill Kristen Urias MD Work Phone: [facility] Comment on above: Malignant neoplasm metastatic to bone (H CC) (Primary Dx) Start: 02-22-2025 End: 02-22-2025 Subsequent hospital visit by physician Kristen Urias MD Work Phone: [facility] Comment on above: Prostate cancer (HCC); Malignant neoplasm metastatic to bone (HCC) Start: 02-22-2025 End: 02-22-2025 ambulatory KRISTEN [facility] Start: 02-13-2025 End: 02-13-2025 Office outpatient visit 25 minutes Kristen Urias MD Work Phone: [facility] Comment on above: Prostate cancer (HCC) (Primary Dx); Malignant neoplasm metastatic to bone (HCC) Start: 02-13-2025 End: 02-13-2025 ambulatory Kristen Urias MD Work Phone: [facility] Comment on above: Prostate cancer (HCC) (Primary Dx); Malignant neoplasm metastatic to bone (HCC) Start: 02-12-2025 End: 02-12-2025 ambulatory [facility] Start: 02-12-2025 End: 02-12-2025 Encounter for general adult medical examination without abnormal findings [facility] Start: 02-12-2025 End: 02-12-2025 Assay of hemosiderin, quant Jeramie Ching MD Work Phone: 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; Essential hypertension; Prostate cancer (HCC) Start: 02-09-2025 End: 02-09-2025 Telephone encounter Jeramie Ching MD Work Phone: [facility] [place] - [facility] Start: 02-07-2025 End: 02-07-2025 Orders Only Kristen Urias MD Work Phone: [facility] [place] [facility] Comment on above: Malignant neoplasm metastatic to bone (H CC) (Primary Dx); Prostate cancer (HCC) Start: 01-25-2025 End: 01-25-2025 ambulatory Corinne [facility] [place] Comment on above: Prostate cancer (HCC) Start: 12-14-2024 End: 12-14-2024 Refill Jeramie Ching MD Work Phone: 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) Start: 11-29-2024 End: 11-29-2024 Telephone encounter Bhanu Diaz PharmD [facility] Start: 11-21-2024 End: 11-21-2024 Office outpatient visit 25 minutes Kristen Urias MD Work Phone: [facility] [place] [facility] Comment on above: Malignant neoplasm metastatic to bone (H CC) (Primary Dx); Prostate cancer (HCC) Start: 11-21-2024 End: 11-21-2024 ambulatory Kristen Urias MD Work Phone: [facility] Comment on above: Prostate cancer (HCC) (Primary Dx); Malignant neoplasm metastatic to bone (HCC) Start: 11-15-2024 End: 11-15-2024 Orders Only Kristen Urias MD Work Phone: [facility] [place] [facility] Comment on above: Malignant neoplasm metastatic to bone (H CC) (Primary Dx); Prostate cancer (HCC) Start: 10-03-2024 End: 10-03-2024 Office outpatient visit 15 minutes Jeramie Ching MD Work Phone: 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) Start: 10-03-2024 End: 10-03-2024 ambulatory JERAMIE CHING [facility] Start: 09-28-2024 End: 09-28-2024 ambulatory [facility] [place] Comment on above: Prostate cancer (HCC) Start: 08-29-2024 End: 08-29-2024 Office outpatient visit 25 minutes Kristen Urias MD Work Phone: [facility] [place] Comment on above: Prostate cancer (HCC) (Primary Dx) Start: 08-29-2024 End: 08-29-2024 ambulatory Kristen Urias MD Work Phone: [facility] Comment on above: Malignant neoplasm metastatic to bone (H CC); Prostate cancer (HCC) Start: 08-23-2024 End: 08-23-2024 Orders Only Kristen Urias MD Work Phone: [facility] [place] [facility] Comment on above: Malignant neoplasm metastatic to bone (H CC) (Primary Dx); Prostate cancer (HCC) Start: 08-18-2024 End: 08-18-2024 Refill Jeramie Ching MD Work Phone: [facility] Comment on above: Elevated prostate specific antigen (PSA) Start: 07-27-2024 End: 07-27-2024 Telephone encounter Jeramie Ching MD Work Phone: [facility] Comment on above: Other (Missed Home visit) Start: 07-20-2024 End: 07-20-2024 Office outpatient visit 25 minutes Jeramie Ching MD Work Phone: [facility] Comment on above: 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); Needs flu shot; History of renal stone; Physical deconditioning; Coronary artery disease involving rampart coronary artery of rampart heart without angina pectoris Start: 06-20-2024 End: 06-24-2024 Evaluation and management of inpatient Maria Antonia Baker MD Work Phone: [facility] Medical Surgical Unit [facility] Comment on above: Failure to thrive in adult (Primary Dx); Pressure injury of right buttock, stage 3 (HCC) Start: 06-13-2024 End: 06-13-2024 Refill Abigail Olsen DATA PROGRAMMER - WATERSHED TENDER Work Phone: [facility] Comment on above: Bronchitis Start: 06-06-2024 End: 06-06-2024 ambulatory Kristen Urias MD Work Phone: [facility] Comment on above: Prostate cancer (HCC) (Primary Dx); Malignant neoplasm metastatic to bone (HCC) Start: 06-06-2024 End: 06-06-2024 Office outpatient visit 25 minutes Kristen Urias MD Work Phone: [facility] Comment on above: Prostate cancer (HCC) (Primary Dx); Malignant neoplasm metastatic to bone (HCC) Start: 05-31-2024 End: 05-31-2024 ambulatory Dianne Montemayor RN [facility] Clinical Communication Comment on above: Prostate cancer (HCC) Start: 05-31-2024 End: 05-31-2024 Patient encounter procedure Dianne Montemayor RN [facility] Clinical Communication Start: 05-31-2024 End: 05-31-2024 Office outpatient visit 15 minutes Abigail Olsen DATA PROGRAMMER - WATERSHED TENDER Work Phone: [facility] Internal Medicine Comment on above: Bronchitis (Primary Dx); Fever, unspecified fever cause Start: 05-25-2024 End: 05-25-2024 Orders Only Kristen Urias MD Work Phone: [facility] Start: 05-03-2024 End: 05-05-2024 Telephone encounter Jeramie Ching MD Work Phone: [facility] Family [facility] Comment on above: Med Refill Start: 03-07-2024 End: 03-07-2024 ambulatory Kristen Urias MD Work Phone: [facility] Comment on above: Prostate cancer (HCC) (Primary Dx); Malignant neoplasm metastatic to bone (HCC) Start: 03-07-2024 End: 03-07-2024 Office outpatient visit 25 minutes Kristen Urias MD Work Phone: [facility] Comment on above: Prostate cancer (HCC) (Primary Dx); Screening for prostate cancer Start: 03-01-2024 Orders Only Kristen Urias MD Work Phone: [facility] Start: 02-29-2024 Orders Only Kristen Maty Urias MD Work Phone: [facility] Comment on above: Malignant neoplasm metastatic to bone (H CC) (Primary Dx); Prostate cancer (HCC) Start: 02-28-2024 Orders Only Kristen Urias MD Work Phone: [facility] Start: 02-07-2024 End: 02-07-2024 Assay of hemosiderin, quant Jeramie Ching MD Work Phone: 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; Pure hypercholesterolemia; Weakness of both lower extremities; Gait disorder Start: 2024 Refill Kristen Urias MD Work Phone: [facility] Comment on above: Prostate cancer (HCC) Start: 12-22-2023 End: 12-22-2023 Office outpatient visit 25 minutes Jeramie Ching MD Work Phone: [facility] Comment on above: Acute bacterial bronchitis (Primary Dx); Drug-induced polyneuropathy (HCC); 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); Malignant neoplasm metastatic to bone (HCC) Start: 12-14-2023 End: 12-14-2023 ambulatory Kristen Urias MD Work Phone: [facility] Comment on above: Malignant neoplasm metastatic to bone (H CC); Prostate cancer (HCC) Start: 12-08-2023 Orders Only Kristen Urias MD Work Phone: [facility] Comment on above: Malignant neoplasm metastatic to bone (H CC) (Primary Dx); Prostate cancer (HCC) Start: 12-08-2023 Refill Jeramie Ching MD Work Phone: [facility] Comment on above: 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) (Primary Dx) Start: 12-07-2023 End: 12-07-2023 Office outpatient visit 25 minutes Kristen Urias MD Work Phone: [facility] Comment on above: Prostate cancer (HCC) (Primary Dx); Screening for prostate cancer Start: 12-02-2023 ambulatory January [facility] Comment on above: Prostate cancer (HCC) Start: 11-23-2023 Refill Jeramie Ching MD Work Phone: [facility] Clinical Communication Comment on above: Essential hypertension (Primary Dx); 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) Start: 09-29-2023 Refill Delphine Wellington APRN.CNP Work Phone: [facility] [place] [facility] Comment on above: Refill Request Start: 09-21-2023 End: 09-21-2023 ambulatory Kristen Urias MD Work Phone: [facility] Comment on above: Malignant neoplasm metastatic to bone (H CC); Prostate cancer (HCC) Start: 09-07-2023 End: 09-07-2023 Office outpatient visit 25 minutes Kristen Urias MD Work Phone: [facility] Comment on above: Prostate cancer (HCC) (Primary Dx); Encounter for screening for malignant neoplasm of prostate Start: 08-04-2023 ambulatory January [facility] Comment on above: Prostate cancer (HCC) Start: 06-30-2023 Refill Juanjo Ferrell MD Work Phone: [facility] Comment on above: Refill Request Start: 06-30-2023 Telephone encounter Juanjo Ferrell MD Work Phone: [facility] Cardiology [place] Comment on above: Appointment Start: 06-29-2023 End: 06-29-2023 Office outpatient visit 25 minutes Kristen Maty Urias MD Work Phone: [facility] Comment on above: Malignant neoplasm metastatic to bone (H CC) (Primary Dx); Prostate cancer (HCC) Start: 05-31-2023 Refill Jeramie Ching MD Work Phone: [facility] Medicine Comment on above: Elevated PSA (Primary Dx) Start: 04-06-2023 Telephone encounter Jeramie Ching MD Work Phone: [facility] Medicine Comment on above: Referral (Fax ) Start: 03-26-2023 Orders Only Kristen Maty Urias MD Work Phone: [facility] Start: 03-25-2023 End: 03-25-2023 Orders Only Kristen Maty Urias MD Work Phone: [facility] Comment on above: Malignant neoplasm metastatic to bone (H CC) (Primary Dx); Prostate cancer (HCC) Prostate cancer (HCC ); Malignant neoplasm metastatic to bone (HCC) Start: 03-25-2023 End: 03-25-2023 Office outpatient visit 25 minutes Kristen Maty Urias MD Work Phone: [facility] Comment on above: Prostate cancer (HCC) (Primary Dx) Start: 03-24-2023 Orders Only Kristen Maty Urias MD Work Phone: [facility] Start: 03-08-2023 ambulatory Kimberlee Alva [facility] Start: 02-15-2023 Telephone encounter Kristen Maty Urias MD Work Phone: [facility] Comment on above: Med Refill Start: 02-03-2023 End: 02-03-2023 Assay of hemosiderin, quant Jeramie Ching MD Work Phone: [facility] Start: 02-03-2023 End: 02-03-2023 Patient encounter procedure Jeramie Ching MD Work Phone: [facility] Comment on above: Routine general medical examination at [facility] (Primary Dx); Elevated PSA; Essential hypertension; Pure hypercholesterolemia Start: 12-23-2022 End: 12-23-2022 ambulatory Kristen Urias MD Work Phone: [facility] Comment on above: Prostate cancer (CMS/HCC) (HCC); Bone metastasis (HCC) Start: 12-23-2022 End: 12-23-2022 Office outpatient visit 25 minutes Kristen Urias MD Work Phone: [facility] Comment on above: Prostate cancer (CMS/HCC) (HCC) (Primary Dx); Bone metastasis (HCC) Start: 12-17-2022 Orders Only Kristen Urias MD Work Phone: [facility] Oncology Start: 12-11-2022 Refill Jeramie Ching MD Work Phone: [facility] Start: 11-26-2022 Refill Jeramie Ching MD Work Phone: [facility] Start: 09-24-2022 End: 09-24-2022 ambulatory UNKNOWN PROVIDER [facility] Comment on above: Prostate cancer (CMS/HCC) (HCC) (Primary Dx); Bone metastasis (HCC) Start: 06-27-2022 Refill Juanjo Ferrell MD Work Phone: [facility] Cardiology [place] Comment on above: Refill Request Start: 06-25-2022 ambulatory UNKNOWN PROVIDER [facility] Start: 06-25-2022 End: 06-25-2022 Subsequent hospital visit by physician Kristen Urias MD Work Phone: [facility] Comment on above: Bone metastasis (HCC) (Primary Dx); Prostate cancer (HCC) Start: 04-02-2022 End: 04-02-2022 Subsequent hospital visit by physician Kristen Urias MD Work Phone: [facility] Comment on above: Bone metastasis (HCC) (Primary Dx); Prostate cancer (HCC) Start: 01-08-2022 ambulatory DEMETRI REDMAN [facility] Start: 01-08-2022 End: 01-08-2022 Subsequent hospital visit by physician Kristen Urias MD Work Phone: [facility] Comment on above: Bone metastasis (HCC) (Primary Dx); Prostate cancer (HCC) Start: 10-09-2021 ambulatory Jeramie Ching [facility] Start: 08-15-2021 End: 08-15-2021 Subsequent hospital visit by physician Corazon Aguilar CNP Work Phone: [facility] Scan Comment on above: Cyst of kidney, acquired; Calculus of kidney; Complex renal cyst; Right renal stone Start: 07-17-2021 End: 07-17-2021 Subsequent hospital visit by physician Kristen Urias MD Work Phone: [facility] Comment on above: Bone metastasis (HCC) (Primary Dx); Prostate cancer (HCC) Start: 06-10-2021 End: 06-10-2021 Subsequent hospital visit by physician Jeramie Ching MD Work Phone: [facility] Ultrasound Comment on above: Other specified abnormal findings of blo od chemistry Start: 05-21-2021 Patient encounter status Jeramie Ching MD Work Phone: [facility] Start: 04-24-2021 End: 04-24-2021 Subsequent hospital visit by physician Kristen Urias MD Work Phone: [facility] Comment on above: Bone metastasis (HCC) (Primary Dx); Prostate cancer (HCC) Start: 04-02-2021 End: 04-02-2021 Subsequent hospital visit by physician Kristen Urias MD Work Phone: [facility] Nuclear Medicine Comment on above: Malignant neoplasm of prostate (HCC); Secondary malignant neoplasm of bone (HCC); Prostate cancer (HCC); Bone metastasis (HCC) Start: 12-30-2020 End: 12-30-2020 Subsequent hospital visit by physician Jeramie Sarmiento Work Phone: [facility] Comment on above: Prostate cancer (HCC) (Primary Dx) Start: 12-23-2020 End: 12-23-2020 Subsequent hospital visit by physician Corazon Tee Work Phone: [facility] Comment on above: Hip pain Start: 07-28-2020 End: 07-28-2020 Refill Juanjo Gomezrick Work Phone: [facility] Cardiology [place] Comment on above: Refill Request Start: 07-04-2020 End: 07-04-2020 Subsequent hospital visit by physician Kadeem Ambrosio Work Phone: [facility] Start: 05-24-2020 End: 05-24-2020 Subsequent hospital visit by physician Jeramie Sarmiento Work Phone: [facility] Comment on above: Prostate cancer (HCC) Start: 11-29-2019 End: 11-29-2019 Subsequent hospital visit by physician Jeramie Sarmiento Work Phone: [facility] Comment on above: Prostate cancer (HCC) Start: 11-02-2019 End: 11-02-2019 Subsequent hospital visit by physician Kadeem Ambrosio MD Work Phone: [facility] Start: 08-03-2019 End: 08-03-2019 Subsequent hospital visit by physician Kadeem Ambrosio Work Phone: [facility] Start: 07-05-2019 End: 07-06-2019 Subsequent hospital visit by physician Kadeem Ambrosio Work Phone: [facility] 1E MED SURG Comment on above: Arthritis of left knee (Primary Dx) Start: 06-28-2019 End: 06-28-2019 Subsequent hospital visit by physician Kadeem Ambrosio Work Phone: [facility] Pre-Admit Testing Comment on above: Arrived Start: 05-18-2019 End: 06-20-2021 Patient encounter status Kristen Urias MD Work Phone: [facility] Work Phone: Start: 05-10-2018 Ambulatory JUANJO FERRELL Facility:[facility] Procedures Date Procedure Procedure Detail Performing Clinician [...] Basic metabolic pane l calcium total Judy Casanova PA-C Work Phone: Start: 06-20-2024 Ecg routine ecg w/le ast 12 lds trcg only w/o i&r Judy Casanova PA-C Work Phone: Start: 06-20-2024 Radiologic exam ches t single view Judy Casanova PA-C Work Phone: Start: 05-31-2024 Iaadiadoo influenza Charles howard Olsen DATA PROGRAMMER - WATERSHED TENDER Work Phone: Start: 02-28-2024 Complete blood count with white cell differential, automated Kristen Urias MD Work Phone: Start: 02-28-2024 Comprehensive metabo lic panel Kristen Urias MD Work Phone: Start: 02-28-2024 PSA TOTAL (SCREENING) S amaurelia Urias MD Work Phone: Start: 02-28-2024 Lipid 1996 panel - S catherine or Plasma Kristen Urias MD Work Phone: Start: 02-07-2024 Adult depression screening assessment Jeramie Ching MD Work Phone: Start: 03-25-2023 Comprehensive metabo lic panel Kristen Urias MD Work Phone: Start: 02-03-2023 Adult depression screening assessment Kimberlee Alva [facility] Start: 02-03-2023 Lipid 1996 panel - S catherine or Plasma Kristen Urias MD Work Phone: Start: 09-24-2022 Comprehensive metabo lic panel Kristen Urias MD Work Phone: Start: 03-09-2022 Lipid 1996 panel - S catherine or Plasma Bed 7 Start: 08-15-2021 Ct abdomen w/o & w/contrast material Corazon Tee DATA PROGRAMMER - WATERSHED TENDER Work Phone: Start: 06-10-2021 Us abdominal real [...] standing anteropost Kadeem Ambrosio Work Phone: Start: 08-03-2019 Radiologic examinati on knee 1/2 views Kadeem Ambrosio Work Phone: Start: 07-06-2019 Basic metabolic pane l calcium total Eliansulma Trejo Work Phone: Start: 07-06-2019 Blood count hemoglobin Eliansulma Trejo Work Phone: Start: 07-05-2019 OPERATIVE REPORT 3m Sca nning Start: 07-05-2019 Radiologic examinati on knee 1/2 views Eliansulma Trejo Work Phone: Start: 07-18-2018 History of placement of stent for coronary artery disease History of heart artery stent Kadeem Ambrosio MD Work Phone: History of placement of stent for coronary artery disease History of heart artery stent Jeramie Ching MD Work Phone: Plan of Treatment Date Care Activity Detail Author Start: 02-27-2029 Lipid panel Lipid Panel [facility] Start: 02-04-2028 Lipid panel Lipid Panel [facility] Start: 04-01-2027 DTaP/Tdap/Td vaccine (3 - Td or Tdap) DTaP/Tdap/Td vaccine (3 - Td or Tdap) [facility] Start: 04-01-2027 DTaP/Tdap/Td vaccine (3 - Td) DTaP/Tdap/Td vaccine (3 - Td) [place] Start: 04-01-2027 DTaP/Tdap/Td Vaccines (3 - Td or Tdap) DTaP/Tdap/Td Vaccines (3 - Td or Tdap) [facility] Start: 04-01-2027 Urine microalbumin profile DTaP,Tdap,Td Vaccine (3 - Td or Tdap) [facility] Start: 03-09-2027 Lipid panel Lipid Panel [facility] Start: 02-12-2026 Depression Screening Depression Screening [facility] Start: 10-09-2025 End: 10-09-2025 Patient encounter procedure 10/09/2025 1:15 PM EST Office Visit [facility] [place] [address] [place] [address] Kristen Urias MD [address] [place] [id number] [facility] Start: 08-06-2025 End: 08-06-2025 Patient encounter procedure 08/06/2025 10:15 AM EDT Office Visit [facility] [place] [address] [place] [phone] Kristen Urias MD [address] [place], [place] [phone] [facility] [place] Start: 08-02-2025 End: 08-03-2026 Comprehensive metabolic 1998 panel - Serum or Plasma Comprehensive metabolic panel Lab STAT Malignant neoplasm metastatic to bone (HCC) Prostate cancer (HCC) Expected: 08/02/2025, Expires: 08/03/2026 [facility] Work Phone: Comment on above: Expected: 08/02/2025, Expires: Start: 08-02-2025 End: 08-02-2025 Patient encounter procedure 08/02/2025 1:00 PM EDT Office Visit [facility] [place] [address] [place] [phone] Kristen Urias MD [address] [place], [place] [phone] [facility] Start: 08-02-2025 End: 08-02-2025 ambulatory 08/02/2025 11:00 AM EDT Infusion [facility] [address] [place] [phone] Jose Still MD [address] [place] [address] Kristen Urias MD [address] [place] [address] [facility] Start: 06-25-2025 COVID-19 Vaccine ( season) COVID-19 Vaccine ( season) [facility] Start: 06-25-2025 Influenza vaccination Influenza Vaccine (#1) [facility] Start: 06-04-2025 End: 06-04-2025 Patient encounter procedure 06/04/2025 10:00 AM EDT Office Visit [facility] [address] [place] [address] Kristen Urias MD [address] [place] [address] [facility] Start: 05-10-2025 End: 05-11-2026 Comprehensive metabolic 1998 panel - Serum or Plasma Comprehensive metabolic panel Lab STAT Malignant neoplasm metastatic to bone (HCC) Prostate cancer (HCC) Expected: 05/10/2025, Expires: 05/11/2026 [facility] Work Phone: Comment on above: Expected: 05/10/2025, Expires: Start: 05-10-2025 End: 05-10-2025 ambulatory 05/10/2025 11:00 AM EDT Infusion [facility] [address] [place] [phone] [facility] Start: 05-10-2025 End: 05-10-2025 Patient encounter procedure 05/10/2025 10:30 AM EDT Office Visit [facility] [place] [address] [place] [phone] Kristen Urias MD [address] [place] [address] [facility] Start: 04-09-2025 End: 04-09-2025 Patient encounter procedure 04/09/2025 10:15 AM EDT [facility] [address] [place] [phone] Kristen Urias MD [address] [place] [id number] [facility] Start: 03-05-2025 End: 03-05-2025 Patient encounter procedure 03/05/2025 9:45 AM EDT Office Visit [facility] [place] [address] [place] [address] Kristen Urias MD [address] [place] [address] [facility] [place] Start: 02-22-2025 End: 02-22-2025 Patient encounter procedure 02/22/2025 9:00 AM EDT Appointment [facility] Nuclear Medicine [address] [place] [phone] Kristen Urias MD [address] [place] [address] [facility] Start: 02-14-2025 End: 02-14-2026 NM Whole body Bone Views NM bone whole body Imaging Routine Prostate cancer (HCC) Malignant neoplasm metastatic to bone (HCC) Expected: 02/14/2025, Expires: 02/14/[address] [facility] Comment on above: Expected: 02/14/2025, Expires: Start: 02-13-2025 End: 02-14-2026 Comprehensive metabolic 1998 panel - Serum or Plasma [facility] [email or web address] [facility] Work Phone: Comment on above: Expected: 02/13/2025, Expires: Expected: 02/13/2025 (Approximate), Expires: 02/13/2026 Start: 02-13-2025 End: 02-13-2025 ambulatory [facility] Start: 02-13-2025 End: 02-13-2025 Patient encounter procedure 02/13/2025 10:30 AM EDT Office Visit [facility] [place] [address] [place] [address] Kristen Urias MD [address] [place] [phone] [facility] Start: 02-12-2025 End: 02-12-2025 Patient encounter procedure [facility] Start: 02-06-2025 Depression Screening Depression Screening [facility] Start: 12-02-2024 Diabetes Screening Diabetes Screening [facility] Start: 11-21-2024 End: 11-22-2025 Comprehensive metabolic 1998 panel - Serum or Plasma [email or web address] [facility] Work Phone: Comment on above: Expected: 11/21/2024, Expires: Expected: 11/21/2024 (Approximate), Expires: 11/21/2025 Start: 11-21-2024 End: 11-21-2024 ambulatory 11/21/2024 11:00 AM EST Infusion [facility] [address] [place] [phone] Kristen Urias MD [address] [place] [id number] [facility] Start: 11-21-2024 End: 11-21-2024 Patient encounter procedure 11/21/2024 10:45 AM EST Office Visit [facility] [address] [place] [phone] Kristen Urias MD [address] [facility], [address] [place] [address] [facility] Start: 10-25-2024 Medicare Advantage Annual Wellness Visit Medicare Advantage Annual Wellness Visit [facility] Start: 10-09-2024 End: 10-09-2024 Patient encounter procedure 10/09/2024 4:20 PM EST Office Visit [facility] [address] [place] [phone] [place] [address] [place] [address] [address] [place] [address] [facility] Start: 10-03-2024 End: 10-03-2024 Patient encounter procedure 10/03/2024 8:40 AM EST Office Visit [facility] [address] [place] [address] Jeramie Ching MD [address] [place] [phone] [facility] Start: 08-29-2024 End: 08-30-2025 Comprehensive metabolic 1998 panel - Serum or Plasma Comprehensive metabolic panel Lab STAT Malignant neoplasm metastatic to bone (HCC) Prostate cancer (HCC) Expected: 08/29/2024, Expires: 08/30/2025 [email or web address] [facility] Work Phone: Comment on above: Expected: 08/29/2024, Expires: Start: 08-29-2024 End: 08-29-2025 PSA Total (Diagnostic Post-Prostatectomy) [facility] Work Phone: Comment on above: Expected: 08/29/2024 (Approximate), Expi res: 08/29/2025 Start: 08-29-2024 End: 08-29-2024 ambulatory 08/29/2024 12:00 PM EST Infusion [facility] [address] [facility] [place] [address] Kristen Urias MD [address] [place] [address] [facility] Start: 08-29-2024 End: 08-29-2024 Patient encounter procedure [facility] Start: 06-25-2024 COVID-19 Vaccine ( season) COVID-19 Vaccine () [facility] Start: 06-25-2024 COVID-19 Vaccine () COVID-19 Vaccine () [facility] Start: 06-25-2024 Influenza vaccination Influenza Vaccine (#1) [facility] Start: 06-07-2024 End: 03-07-2025 CBC W Auto Differential panel - Blood CBC auto differential Lab Routine Prostate cancer (HCC) Expected: 06/07/2024 (Approximate), Expires: 03/07/[address] [facility] Work Phone: Comment on above: Expected: 06/07/2024 (Approximate), Expi res: 03/07/2025 Start: 06-07-2024 End: 03-07-2025 Comprehensive metabolic 1998 panel - Serum or Plasma Comprehensive metabolic panel Lab Routine Prostate cancer (HCC) Expected: 06/07/2024 (Approximate), Expires: 03/07/[address] [facility] Comment on above: Expected: 06/07/2024 (Approximate), Expi res: 03/07/2025 Start: 06-07-2024 End: 03-07-2025 PSA Total (Screening) PSA Total (Screening) Lab Routine Screening for prostate cancer Expected: 06/07/2024 (Approximate), Expires: 03/07/[address] [facility] Comment on above: Expected: 06/07/2024 (Approximate), Expi res: 03/07/2025 Start: 06-06-2024 End: 06-06-2025 CBC W Auto Differential panel - Blood CBC auto differential Lab Routine Prostate cancer (HCC) Malignant neoplasm metastatic to bone (HCC) Expected: 06/06/2024 (Approximate), Expires: 06/06/2025 [facility] [employer] Work Phone: Comment on above: Expected: 06/06/2024 (Approximate), Expi res: 06/06/2025 Start: 06-06-2024 End: 06-06-2025 Comprehensive metabolic 1998 panel - Serum or Plasma Comprehensive metabolic panel Lab Routine Prostate cancer (HCC) Malignant neoplasm metastatic to bone (HCC) Expected: 06/06/2024 (Approximate), Expires: 06/06/[address] [facility] Comment on above: Expected: 06/06/2024 (Approximate), Expi res: 06/06/2025 Start: 06-06-2024 End: 06-06-2025 PSA Total (Diagnostic Post-Prostatectomy) PSA Total (Diagnostic Post-Prostatectomy) Lab Routine Prostate cancer (HCC) Malignant neoplasm metastatic to bone (HCC) Expected: 06/06/2024 (Approximate), Expires: 06/06/[address] [facility] Comment on above: Expected: 06/06/2024 (Approximate), Expi res: 06/06/2025 Start: 06-06-2024 End: 06-06-2024 ambulatory 06/06/2024 1:00 PM EDT Infusion [address] [place] [phone] Kristen Urias MD [address] [facility], [address] [place], [place] [id number] [facility] Start: 06-06-2024 End: 06-06-2024 Patient encounter procedure 06/06/2024 12:45 PM EDT Office Visit [facility] [address] [place] [phone] Kristen Urias MD [address] [facility] [address] [place], [place] [phone] [facility] Start: 05-30-2024 End: 05-30-2024 ambulatory 05/30/2024 11:00 AM EDT Infusion [facility] [address] [place] [phone] Kristen Urias MD [address], [address] [place] [id number] [facility] Start: 05-30-2024 End: 05-30-2024 Patient encounter procedure 05/30/2024 10:15 AM EDT Office Visit [facility] [address] [place] [phone] Kristen Urias MD [address], [address] [place] [id number] [facility] Start: 03-11-2024 DIABETES SCREEN DIABETES SCREEN [facility] Start: 03-07-2024 End: 03-08-2025 Comprehensive metabolic 1998 panel - Serum or Plasma Comprehensive metabolic panel Lab STAT Malignant neoplasm metastatic to bone (HCC) Prostate cancer (HCC) Expected: 03/07/2024, Expires: 03/08/2025 [facility] Work Phone: Comment on above: Expected: 03/07/2024, Expires: Start: 03-07-2024 End: 03-07-2024 ambulatory 03/07/2024 11:00 AM EDT Infusion [facility] [address] [place] [phone] Kristen Urias MD [address] [place] [id number] [facility] Start: 03-07-2024 End: 03-07-2024 Patient encounter procedure 03/07/2024 10:00 AM EDT Office Visit [facility] [address] [place] [phone] Kristen Urias MD [address] [place] [phone] [facility] Start: 03-05-2024 Medicare Advantage Annual Wellness Visit (AWV) Medicare Advantage Annual Wellness Visit (AWV) [employer] Start: 02-07-2024 End: 02-06-2025 Lipid 1996 panel - Serum or Plasma Lipid panel Lab Routine Pure hypercholesterolemia Expected: 02/07/2024 (Approximate), Expires: 02/06/2025 [employer] Work Phone: Comment on above: Expected: 02/07/2024 (Approximate), Expi res: 02/06/2025 Start: 02-07-2024 End: 02-07-2024 Patient encounter procedure [facility] Start: 02-04-2024 Depression Screening Depression Screening [email or web address] Start: 12-14-2023 End: 12-14-2024 Comprehensive metabolic 1998 panel - Serum or Plasma Comprehensive metabolic panel Lab STAT Malignant neoplasm metastatic to bone (HCC) Prostate cancer (HCC) Expected: 12/14/2023, Expires: 12/14/2024 [employer] Work Phone: Comment on above: Expected: 12/14/2023, Expires: Start: 12-14-2023 End: 12-14-2023 ambulatory 12/14/2023 11:00 AM EST Infusion [address] [address] Kristen Urias MD [address] [place] [address], [address] [place] [address] [facility] Start: 12-07-2023 End: 12-07-2024 CBC W Auto Differential panel - Blood CBC auto differential Lab Routine Prostate cancer (HCC) Expected: 12/07/2023 (Approximate), Expires: 12/07/2024 [employer] Work Phone: Comment on above: Expected: 12/07/2023 (Approximate), Expi res: 12/07/2024 Start: 12-07-2023 End: 12-07-2024 Comprehensive metabolic 1998 panel - Serum or Plasma Comprehensive metabolic panel Lab Routine Prostate cancer (HCC) Expected: 12/07/2023 (Approximate), Expires: 12/07/[address] [facility] Comment on above: Expected: 12/07/2023 (Approximate), Expi res: 12/07/2024 Start: 12-07-2023 End: 12-07-2023 Patient encounter procedure 12/07/2023 9:00 AM EST Office Visit [facility] [address] [place] [phone] Kristen Urias MD [address] [place] [phone] [facility] Start: 12-01-2023 COVID-19 Vaccine () COVID-19 Vaccine () [facility] Start: 10-25-2023 Medicare Advantage Annual Wellness Visit [facility] Annual Wellness Visit [facility] Start: 09-25-2023 COVID-19 Vaccine ( season) COVID-19 Vaccine () [facility] Start: 09-21-2023 End: 09-21-2023 ambulatory 09/21/2023 11:00 AM EST Infusion [facility] [address] [place] [phone] Kristen Urias MD [address] [place] [address] [facility] Start: 09-07-2023 End: 09-07-2024 CBC W Auto Differential panel - Blood CBC auto differential Lab Routine Prostate cancer (HCC) Encounter for screening for malignant neoplasm of prostate Expected: 09/07/2023 (Approximate), Expires: 09/07/[address] [facility] Comment on above: Expected: 09/07/2023 (Approximate), Expi res: 09/07/2024 Start: 09-07-2023 End: 09-07-2024 Comprehensive metabolic 1998 panel - Serum or Plasma Comprehensive metabolic panel Lab Routine Prostate cancer (HCC) Encounter for screening for malignant neoplasm of prostate Expected: 09/07/2023 (Approximate), Expires: 09/07/[address] [facility] Comment on above: Expected: 09/07/2023 (Approximate), Expi res: 09/07/2024 Start: 09-07-2023 End: 09-07-2024 PSA Total (Screening) [facility] [employer] Work Phone: Comment on above: Ordered: 09/07/2023 Expected: 09/07/2023 (Approximate), Expires: 09/07/2024 Start: 09-07-2023 End: 09-07-2023 Patient encounter procedure 09/07/2023 9:15 AM EST Office Visit [facility] [address] [place] [address] Kristen Urias MD [address] [facility] [address] [place], [place] [phone] [facility] Start: 06-29-2023 End: 06-29-2023 ambulatory [facility] Start: 06-29-2023 End: 06-29-2023 Patient encounter procedure [facility] Start: 06-25-2023 Covid-19 Vaccine ( season) Covid-19 Vaccine () [facility] Start: 06-25-2023 Influenza vaccination [facility] Start: 06-17-2023 End: 06-17-2024 Comprehensive metabolic 1998 panel - Serum or Plasma Comprehensive metabolic panel Lab STAT Malignant neoplasm metastatic to bone (HCC) Prostate cancer (HCC) Expected: 06/17/2023, Expires: 06/17/[address] [facility] Comment on above: Expected: 06/17/2023, Expires: 4 Start: 03-25-2023 End: 03-25-2024 Comprehensive metabolic 1998 panel - Serum or Plasma Comprehensive metabolic panel Lab STAT Malignant neoplasm metastatic to bone (HCC) Prostate cancer (HCC) Expected: 03/25/2023, Expires: 03/25/2024 [email or web address] Work Phone: Comment on above: Expected: 03/25/2023, Expires: 4 Start: 03-25-2023 End: 03-25-2023 ambulatory [facility] Start: 03-25-2023 End: 03-25-2023 Patient encounter procedure 03/25/2023 Office Visit Hematology and Oncology Kristen Urias MD [address] [facility] [place] [address] [facility] Start: 02-03-2023 Annual Wellness Visit (AWV) Annual Wellness Visit (AWV) [facility] Start: 02-03-2023 End: 02-04-2024 CBC panel - Blood by Automated count CBC Lab Routine Elevated PSA Expected: 02/03/2023 (Approximate), Expires: 02/04/2024 [email or web address] Work Phone: Comment on above: Expected: 02/03/2023 (Approximate), Expi res: 02/04/2024 Start: 02-03-2023 End: 02-04-2024 Comprehensive metabolic 1998 panel - Serum or Plasma Comprehensive metabolic panel Lab Routine Essential hypertension Expected: 02/03/2023 (Approximate), Expires: 02/04/2024 [email or web address] Comment on above: Expected: 02/03/2023 (Approximate), Expi res: 02/04/2024 Start: 02-03-2023 End: 02-04-2024 Lipid 1996 panel - Serum or Plasma Lipid panel Lab Routine Pure hypercholesterolemia Expected: 02/03/2023 (Approximate), Expires: 02/04/2024 [email or web address] Comment on above: Expected: 02/03/2023 (Approximate), Expi res: 02/04/2024 Start: 02-03-2023 End: 02-04-2024 PSA, total and free PSA, total and free Lab Routine Elevated PSA Expected: 02/03/2023 (Approximate), Expires: 02/04/2024 [email or web address] Comment on above: Expected: 02/03/2023 (Approximate), Expi res: 02/04/2024 Start: 02-03-2023 End: 02-03-2023 Patient encounter procedure 02/03/2023 Office Visit Family Medicine Jeramie Ching MD [address] [place] [address] [facility] Start: 01-26-2023 Depression Screen Depression Screen [facility] Start: 01-01-2023 Creatinine measurement Creatinine monitoring [facility] Start: 01-01-2023 Potassium monitoring Potassium monitoring [facility] Start: 01-01-2023 Prostate specific antigen measurement PSA counseling [facility] Start: 12-23-2022 End: 12-23-2022 ambulatory 12/23/2022 Infusion Infusion Therapy Kristen Urias MD [address] [facility] [address] [place] [address] [facility] Start: 12-23-2022 End: 12-23-2022 Patient encounter procedure 12/23/2022 Office Visit Hematology and Oncology Kristen Urias MD [address] [facility] [address] [place] [address] [facility] Start: 10-25-2022 ADVANCE DIRECTIVE DISCUSSION ADVANCE DIRECTIVE DISCUSSION [facility] Start: 10-25-2022 DEPRESSION ASSESSMENT DEPRESSION ASSESSMENT [facility] Start: 09-24-2022 End: 09-24-2022 Patient encounter procedure [facility] [place] [facility] Start: 09-10-2022 COVID-19 Vaccine (5 - Pfizer risk series) COVID-19 Vaccine (5 - Pfizer risk series) [facility] Start: 08-13-2022 Creatinine measurement Creatinine monitoring [facility] Work Phone: Start: 08-08-2022 Potassium monitoring Potassium monitoring [facility] Work Phone: Start: 08-08-2022 Prostate specific antigen measurement PSA counseling [facility] Work Phone: Start: 06-25-2022 Influenza vaccination [facility] Start: 06-25-2022 End: 06-25-2022 Patient encounter procedure [facility] [place] Start: 06-23-2022 Creatinine measurement Creatinine monitoring [facility] Work Phone: Start: 06-23-2022 Potassium monitoring Potassium monitoring [facility] Work Phone: Start: 06-23-2022 Prostate specific antigen measurement PSA counseling [facility] Work Phone: Start: 06-18-2022 End: 06-18-2022 Nursing evaluation of patient and report 06/18/2022 Nurse Only Hematology and Oncology [facility] [place] Start: 05-31-2022 COVID-19 Vaccine (5 - Booster for Pfizer series) COVID-19 Vaccine (5 - Booster for Pfizer series) [facility] Start: 05-21-2022 Creatinine measurement Creatinine monitoring [facility] Work Phone: Start: 05-21-2022 Potassium monitoring Potassium monitoring [facility] Work Phone: Start: 05-21-2022 Prostate specific antigen measurement PSA counseling [facility] Work Phone: Start: 04-17-2022 Prostate specific antigen measurement PSA counseling [facility] Work Phone: Start: 04-02-2022 End: 04-02-2022 Patient encounter procedure 04/02/2022 Appointment Infusion Therapy [facility] Start: 03-26-2022 End: 03-26-2022 Patient encounter procedure 03/26/2022 Office Visit Hematology and Oncology Kristen Urias MD [address] [facility] [address] [place], [place] [phone] [facility] [place] Start: 03-11-2022 Creatinine measurement Creatinine monitoring [facility] Work Phone: Start: 03-11-2022 Diabetes mellitus screening Diabetes Screening [facility] Start: 03-11-2022 Hepatitis B surface antibody level LDL Cholesterol [facility] Start: 03-11-2022 Lipid panel Lipid screen [facility] Work Phone: Start: 03-11-2022 Potassium monitoring Potassium monitoring [facility] Work Phone: Start: 03-11-2022 Prostate specific antigen measurement PSA counseling [facility] Work Phone: Start: 2022 End: 2022 Patient encounter procedure [facility] Start: 02-01-2022 Annual Wellness Visit (AWV) Annual Wellness Visit (AWV) [facility] Start: 01-31-2022 Depression Screen Depression Screen [facility] Start: 01-08-2022 COVID-19 Vaccine (4 - Booster for Pfizer series) COVID-19 Vaccine (4 - Booster for Pfizer series) [facility] Start: 12-11-2021 COVID-19 VACCINE (4 - Booster for Pfizer series) COVID-19 VACCINE (4 - Booster for Pfizer series) [facility] Start: 10-25-2021 ADVANCE DIRECTIVE DISCUSSION ADVANCE DIRECTIVE DISCUSSION [facility] Start: 10-09-2021 End: 10-09-2021 Patient encounter procedure 10/09/2021 Appointment Infusion Therapy [facility] Start: 10-05-2021 COVID-19 VACCINE (4 - Pfizer series) COVID-19 VACCINE (4 - Pfizer series) [facility] Start: 10-02-2021 End: 10-02-2021 Patient encounter procedure 10/02/2021 Office Visit Hematology and Oncology Kristen Urias MD [address] [facility] [address] [place] [address] [phone] [facility] [place] Start: 09-26-2021 Creatinine measurement Creatinine monitoring [facility] Work Phone: Start: 09-26-2021 Potassium monitoring Potassium monitoring [facility] Work Phone: Start: 09-26-2021 Prostate specific antigen measurement PSA counseling [facility] Work Phone: Start: 08-08-2021 End: 08-08-2021 Office Visit 08/08/2021 Office Visit Hematology and Oncology Kristen Urias MD [address] [facility] [place] [address] [phone] [facility] [place] Start: 07-28-2021 End: 07-28-2021 Patient encounter procedure 07/28/2021 Office Visit Urology Corazon Tee, DATA PROGRAMMER - WATERSHED TENDER [address] [place] [address] [phone] [facility] [place] Start: 07-17-2021 End: 07-17-2021 Patient encounter procedure 07/17/2021 Appointment Infusion Therapy [facility] Start: 06-25-2021 Influenza vaccination Flu vaccine (#1) [facility] Work Phone: Start: 06-23-2021 End: 06-23-2021 Patient encounter procedure 06/23/2021 Office Visit Hematology and Oncology Kristen Urias MD [address], [address] [place] [address] [phone] [facility] [place] Start: 05-21-2021 End: 05-21-2021 Patient encounter procedure 05/21/2021 Office Visit Hematology and Oncology Kristen Urias MD [address] [facility] [address] [place] [address] [phone] [facility] [place] Start: 04-23-2021 Creatinine measurement Creatinine monitoring [facility] [place] Start: 04-23-2021 Lipid panel Lipid screen [facility] [place] Start: 04-23-2021 Potassium monitoring Potassium monitoring [facility], [place] Start: 04-23-2021 Prostate specific antigen measurement PSA counseling [facility] [place] Start: 03-25-2021 End: 03-25-2021 Appointment 03/25/2021 Appointment Infusion Therapy [facility] Start: 01-31-2021 End: 01-31-2021 Office Visit 01/31/2021 Office Visit Family Medicine Jeramie Ching MD [address] [phone] [facility] Start: 01-10-2021 COVID-19 Vaccine (3 - Pfizer risk 3-dose series) COVID-19 Vaccine (3 - Pfizer risk 3-dose series) [facility] Work Phone: Start: 12-23-2020 End: 12-23-2020 Office Visit 12/23/2020 Office Visit Urology Corazon Tee, DATA PROGRAMMER - [employer]SH[employer] TENDER [address] [facility] [address] [place] [address] [phone] [facility] [place] Start: 11-27-2020 Creatinine monitoring Creatinine monitoring [facility] Work Phone: Start: 10-16-2020 Creatinine monitoring Creatinine monitoring [facility] Work Phone: Start: 10-16-2020 Potassium monitoring Potassium monitoring [facility] Work Phone: Start: 08-08-2020 End: 08-08-2020 Office Visit 08/08/2020 Office Visit Hematology and Oncology Kristen Urias MD [address] [facility] [place] [address] [phone] [facility] [place] Start: 07-06-2020 Creatinine monitoring Creatinine monitoring [facility] [place] , [place] Start: 07-06-2020 Potassium monitoring Potassium monitoring [facility] [place], [place] Start: 07-02-2020 End: 07-02-2020 Office Visit 07/02/2020 Office Visit Jeramie Aguilera MD [address] [place] [phone] [facility] [place] Start: 06-27-2020 Creatinine monitoring Creatinine monitoring [facility] [place] , [place] Start: 06-27-2020 Lipid screen Lipid screen [facility] [place], [place] Start: 06-27-2020 Potassium monitoring Potassium monitoring [facility] [place], [place] Start: 06-25-2020 Influenza vaccination [facility], [place] Start: 06-18-2020 End: 06-18-2020 Office Visit 06/18/2020 Office Visit Jeramie Aguilera MD [address] [place] [phone] [facility] [place] Start: 02-26-2020 End: 02-26-2020 Office Visit 02/26/2020 Office Visit Family Medicine Jeramie Ching MD [address] [phone] [facility] Start: 12-22-2019 End: 12-22-2019 Office Visit 12/22/2019 Office Visit Jeramie Aguilera, MD [address] [place] [phone] [facility] [place] Start: 11-17-2019 End: 11-17-2019 Patient encounter procedure 11/17/2019 Procedure visit Jeramie Aguilera MD [address] [place] [phone] [facility] [place] Start: 11-02-2019 End: 11-02-2019 Nurse Only [facility] [place] Start: 08-28-2019 End: 08-28-2019 Office Visit 08/28/2019 Office Visit Family Medicine Jeramie Ching MD [address] [phone] [facility] Start: 08-10-2019 End: 08-10-2019 Office Visit 08/10/2019 Office Visit Hematology and Oncology Kristen Urias MD [address] [facility], [address] [place] [address] [phone] [facility] Start: 08-02-2019 End: 08-02-2019 Office Visit 08/02/2019 Office Visit Jeramie Aguilera MD [address] [place] [phone] [facility] Start: 07-19-2019 End: 07-19-2019 Office Visit 07/19/2019 Office Visit Family Medicine Jeramie Ching MD [address] [phone] [facility] Start: 07-05-2019 End: 07-05-2019 Appointment 07/05/2019 Appointment General Surgery Kadeem Ambrosio MD [address] [facility], [address] [address] [phone] [facility] Start: 06-25-2019 Influenza vaccination Flu vaccine (#1) [place] Start: 04-13-2019 Annual Wellness Visit (AWV) Annual Wellness Visit (AWV) [place] Start: 02-01-2015 RSV Immunization for Adults (1 - 1-dose 75+ series) RSV Immunization for Adults (1 - 1-dose 75+ series) [facility] Start: 08-20-2010 Shingles Vaccine (2 of 3) Shingles Vaccine (2 of 3) [place] Start: 02-01-2005 ADVANCE DIRECTIVE DISCUSSION ADVANCE DIRECTIVE DISCUSSION [facility] Start: 02-01-2005 PNEUMOCOCCAL: 65+ (1 - PCV) PNEUMOCOCCAL: 65+ (1 - PCV) [facility] Start: 02-01-2005 PNEUMOVAX AGE 65 AND OVER WITH 5YR LOOKBACK (#1) PNEUMOVAX AGE 65 AND OVER WITH 5YR LOOKBACK (#1) [facility] Start: 02-01-2003 Annual Wellness Visit (AWV) Annual Wellness Visit (AWV) [place] Start: 2000 RSV Immunization aged 60 or older (1 - 1-dose 60+ series) RSV Immunization aged 60 or older (1 - 1-dose 60+ series) [facility] Start: 2000 RSV Vaccine (1 - 1-dose 60+ series) RSV Vaccine (1 - 1-dose 60+ series) [facility] Start: 02-01-1990 SHINGRIX VACCINE (1 of 2) SHINGRIX VACCINE (1 of 2) [facility] Start: 02-01-1985 DIABETES SCREEN DIABETES SCREEN [facility] Start: 02-01-1975 LIPID SCREEN LIPID SCREEN [facility] Start: 02-01-1959 Urine microalbumin profile DTAP,TDAP,TD (1 - Tdap) [facility] Start: 02-01-1958 ANNUAL PCP TEAM CHRONIC DISEASE VISIT ANNUAL PCP TEAM CHRONIC DISEASE VISIT [facility] Start: 02-01-1958 BP CONTROLLED (<130/80) BP CONTROLLED (<130/80) [facility] Start: 02-01-1958 Hepatitis B surface antibody level LDL CHOLESTEROL [facility] Start: 1940 Examination of skin Derm Melanoma Skin Check [facility] Start: 1940 Hepatitis B Vaccines (1 of 3 - 3-dose series) Hepatitis B Vaccines (1 of 3 - 3-dose series) [employer] Start: 1940 Medicare Advantage Annual Wellness Visit (AWV) Medicare Advantage Annual Wellness Visit (AWV) [employer] CBC W Auto Differential panel - Blood CBC and differential Lab Routine Prostate cancer (CMS/HCC) (HCC) Bone metastasis (HCC) Ordered: 09/24/2022 [employer] Work Phone: Comment on above: Ordered: 09/24/2022 End: 05-24-2020 CT PELVIS W CONTRAST CT PELVIS W CONTRAST Imaging Routine Prostate cancer (HCC) 1 Occurrences starting 05/24/2020 until 05/24/2020 [employer] Comment on above: 1 Occurrences starting 05/24/2020 until 05/24/2020 CT PELVIS W CONTRAST Additional Contrast? None CT PELVIS W CONTRAST Additional Contrast? None Imaging Routine Prostate cancer (HCC) 05/24/2020 10:45 AM EDT [employer] Incentive spirometry Incentive s pirometry Respiratory Care Routine Every 2hr while awake until discontinued starting 07/05/2019 [employer] Comment on above: Every 2hr while awake until discontinued starting 07/05/2019 Initiate Oxygen Therapy Protocol Initiate Oxygen Therapy Protocol Respiratory Care Routine Daily until discontinued starting 07/05/2019 [employer] Comment on above: Daily until discontinued starting 2018 End: 02-22-2025 NM Whole body Bone Views [employer] Work Phone: Comment on above: Once for 1 Occurrences starting 02/23/20 25 until 02/22/2025 PSA Total (Screening) PSA Total (Screening) Lab Routine Screening for prostate cancer Ordered: 12/07/2023 [employer] Comment on above: Ordered: 12/07/2023 PSA, total and free PSA, total a nd free Lab STAT Malignant neoplasm of prostate (HCC) 08/02/2025 11:09 AM EDT [employer] Work Phone: End: 12-23-2020 XR PELVIS (1-2 VIEWS) XR PELVIS (1-2 VIEWS) Imaging Routine Hip pain 1 Occurrences starting 12/23/2020 until 12/23/2020 [email or web address] Work Phone: Comment on above: 1 Occurrences starting 12/23/2020 until 12/23/2020 End: 12-23-2020 XR PELVIS (1-2 VW) XR PELVIS (1-2 VW) Imaging Routine Once for 1 Occurrences starting 12/23/2020 until 12/23/2020 [employer] Work Phone: Comment on above: Once for 1 Occurrences starting 12/24/19 until 12/23/2020 XR PELVIS (1-2 VW) XR PELVIS (1- 2 VW) Imaging Routine 12/23/2020 9:17 AM EST [email or web address] Work Phone: [facility] Immunizations Immunization Date Immunization Notes Care Provider Fa cili 07-03-2025 Seasonal trivalent influenza vaccine, adjuvanted, preservative free Jeramie Ching MD Work Phone: [email or web address] 07-20-2024 Seasonal trivalent influenza vaccine, adjuvanted, preservative free Jeramie Ching MD Work Phone: [email or web address] 07-20-2024 influenza virus vacc ine, unspecified formulation Kristen Urias MD Work Phone: [email or web address] 07-31-2023 COVID-19, mRNA, LNP- S, PF, 50 mcg/0.5 mL Kristen Urias MD Work Phone: [email or web address] 07-31-2023 Influenza, Seasonal, Quadrivalent, Adjuvanted Kristen Urias MD Work Phone: [email or web address] 07-31-2023 influenza virus vacc ine, unspecified formulation Jeramie Ching MD Work Phone: [email or web address] [email or web address] 07-16-2022 Covid-19, Pfizer Bivalent Booster, (Age 12y+), Im, 30 Mcg/0e Kristen Urias MD Work Phone: [email or web address] 07-16-2022 Influenza, High-dose Seasonal, Quadrivalent, Preservative Free Kristen Urias MD Work Phone: [email or web address] [email or web address] 07-16-2022 influenza virus vacc ine, unspecified formulation Jeramie Ching MD Work Phone: [facility] 01-29-2022 Covid-19, Pfizer Gra y Top, Do Not Dilute, (Age 12 Y+), Im, L Jeramie Ching MD Work Phone: [facility] 08-10-2021 Pfizer SARS-CoV-2 Vaccination Jeramie Ching MD Work Phone: [facility] 07-21-2021 Influenza, High-dose Seasonal, Quadrivalent, Preservative Free Kristen Urias MD Work Phone: [facility] 07-21-2021 influenza virus vacc ine, unspecified formulation Delphine Wellington [facility] Work Phone: [facility] 12-13-2020 COVID-19, Pfizer, PF , 30mcg/0.3mL Jeramie Ching MD Work Phone: [facility] Work Phone: 11-23-2020 COVID-19, Pfizer, PF , 30mcg/0.3mL Jeramie Ching MD Work Phone: [facility] Work Phone: 07-19-2020 Influenza, Quadv, adjuvanted, 65 yrs +, IM, PF (Fluad) Jeramie Ching MD Work Phone: [facility] Work Phone: 07-09-2020 influenza virus vacc ine, unspecified formulation Jeramie Ching MD Work Phone: [facility] Work Phone: 08-28-2019 influenza, high dose seasonal, preservative-free Kadeem Ambrosio MD Work Phone: [facility] 08-28-2019 Influenza, High-dose Seasonal, Quadrivalent, Preservative Free Kristen Urias MD Work Phone: [facility] 08-05-2019 zoster vaccine recombinant Kadeem Ambrosio MD Work Phone: [facility] Work Phone: 04-06-2019 zoster vaccine recombinant Kadeem Ambrosio MD Work Phone: [facility] Work Phone: 01-26-2019 influenza virus vacc ine, unspecified formulation Kadeem Ambrosio MD Work Phone: [facility] Work Phone: 07-18-2018 Influenza Vaccine, unspecified formulation Kadeem Ambrosio MD Work Phone: [facility] Work Phone: 07-18-2018 influenza, injectabl e, quadrivalent, contains preservative [facility], [place] 07-18-2018 influenza, seasonal, injectable Kristen Urias MD Work Phone: [facility] 08-20-2017 influenza, high dose seasonal, preservative-free Kadeem Ambrosio MD Work Phone: [facility] Work Phone: 04-01-2017 pneumococcal conjuga te vaccine, 13 valent [facility] 04-01-2017 tetanus toxoid, redu debi diphtheria toxoid, and acellular pertussis vaccine, adsorbed [facility] 09-09-2016 Influenza Vaccine, unspecified formulation [facility] , [place] 09-09-2016 influenza virus vacc ine, unspecified formulation Kadeem Ambrosio MD Work Phone: [facility] Work Phone: 09-09-2016 influenza, seasonal, injectable Kristen Urias MD Work Phone: [facility] 07-25-2015 Influenza Vaccine, unspecified formulation [facility] 07-25-2015 influenza virus vacc ine, unspecified formulation Kadeem Ambrosio MD Work Phone: [facility] Work Phone: 07-25-2015 influenza, seasonal, injectable Kristen Urias MD Work Phone: [facility] 05-11-2015 tuberculin skin test ; purified protein derivative solution, intradermal Kristen Urias MD Work Phone: [facility] 08-09-2014 Influenza Vaccine, unspecified formulation Kadeem Ambrosio MD Work Phone: [facility] Work Phone: 08-09-2014 influenza virus vacc ine, unspecified formulation [facility] , [place] 08-09-2014 influenza, seasonal, injectable Kristen Urias MD Work Phone: [facility] 08-09-2014 tetanus toxoid, redu debi diphtheria toxoid, and acellular pertussis vaccine, adsorbed Kadeem Ambrosio MD Work Phone: [facility] Work Phone: 08-05-2012 influenza virus vacc ine, unspecified formulation [facility] , [place] 08-05-2012 influenza virus vacc ine, whole virus Kadeem Ambrosio MD Work Phone: [facility] Work Phone: 08-13-2011 influenza virus vacc ine, unspecified formulation [facility] , [place] 08-13-2011 influenza virus vacc ine, whole virus Kadeem Ambrosio MD Work Phone: [facility] Work Phone: 08-03-2010 Influenza Vaccine, unspecified formulation [facility] , [place] 08-03-2010 influenza virus vacc ine, unspecified formulation Kadeem Ambrosio MD Work Phone: [facility] Work Phone: 08-03-2010 influenza, seasonal, injectable Kristen Urias MD Work Phone: [facility] 06-25-2010 zoster vaccine, live [facility], [place] 12-16-2009 novel influenza-H1N1 -09, preservative-free, injectable Kadeem Ambrosio MD Work Phone: [facility] Work Phone: 09-05-2009 influenza virus vacc ine, whole virus Kadeem Ambrosio MD Work Phone: [facility] Work Phone: 10-25-2007 Influenza Vaccine, unspecified formulation [facility] , [place] 10-25-2007 influenza virus vacc ine, unspecified formulation Kadeem Ambrosio MD Work Phone: [facility] Work Phone: 10-25-2007 influenza, seasonal, injectable Kristen Adonay COY Work Phone: [facility] 08-06-2006 pneumococcal polysaccharide vaccine, 23 valent [place], [place] 05-25-2003 tetanus toxoid, adsorbed Fortino Ambrosio MD Work Phone: [facility] Work Phone: 05-25-2003 tetanus toxoid, unspecified formulation [place], [place] Payers Date Payer Category Payer Medicare [id number] 2025 Self-pay 2021 Medicare HMO [employer] [id number] 2016 Medicare [id number] 2015 Medicare [id number] 2015 Medicare [employer] [facility]-MEDICARE ADVANTAGE xxxxxxxxxxx 2015-Present [phone] [address] [place] [address] xxxxxxxxxxx [id number] 2015 Medicare [id number] 1940 Unknown [id number] 1940 Unknown [id number] 1940 Unknown [id number] 1940 Unknown [id number] Unknown Unknown [id number] Social History Date Type Detail Facility Start: 07-05-2019 End: 06-06-2024 Tobacco smoking status [facility] Former smoker [facility] Start: 06-24-1967 End: 06-24-1977 History of tobacco use Current smoker [place] Start: 06-24-1967 End: 06-24-1977 History of tobacco use Cig[place] Start: 07-05-2019 End: 10-02-2024 Alcohol intake Yes [email or web address] Start: 06-28-2019 Alcohol Comment once monthly [facility] [place], [place] Start: 1940 Sex Assigned At Not on file M [place] Start: 11-17-2019 End: 08-02-2025 Alcohol intake Current drinker of alcohol (finding) [facility] [employer] Phone: Start: 02-26-2020 End: 06-06-2024 Tobacco use and exposure Never used [email or web address] Start: 06-15-2022 End: 06-29-2023 Exposure to SARS-CoV-2 (event) Not sure [place] Start: 05-21-2020 End: 02-03-2023 History SDOH Alcohol Frequency 3 [facility] Start: 05-21-2020 End: 02-03-2023 History SDOH Alcohol Std Drinks 1 [facility] Start: 11-10-2016 Alcohol Comment at times [facility] Start: 01-31-2021 End: 02-03-2023 History SDOH Alcohol Frequency 2 [facility] Work Phone: Start: 01-31-2021 End: 02-03-2023 History SDOH Financial 5 [facility] Work Phone: Start: 12-09-2021 History SDOH Alcohol Comment rarely [facility] Start: 1940 Sex Assigned At Male [facility] Start: 02-03-2023 History SDOH Social Connections Get Together 4 [facility] Start: 02-03-2023 End: 10-02-2024 History of Social function [facility] Within the last year , have you been afraid of your partner or ex-partner? No [facility] Do you belong to any clubs or organizations such as druze groups, unions, fraternal or athletic groups, or school groups? Yes [facility] Are you now , , , , never or living with a partner? [facility] How often to you hav e [...] care, and heating Not hard at all [facility] Do you feel stress - tense, restless, nervous, or anxious, or unable to sleep at night because your mind is troubled all the time - these days [OSQ] Not at all [facility] (I/We) worried wheth er (my/our) food would run out before (I/we) got money to buy more. Never true [facility] How often to you hav e a drink containing alcohol? 2-4 times a month [facility] Start: 05-20-2021 Gender identity Identifies as male gender (finding) [facility] Start: 05-25-2022 Sex Male (finding) Tammie espinoza Clinical Notes 05-18-2017 to 08-02-2025 Kristen Urias [...] (L) 08/02/2025 PSA Total (Diagnostic Post-Prostatectomy) Order: [id number] Status: Final result Next appt: None Dx: [...] Performed by: [facility] Testing performed on the [employer] using a two-step chemiluminescent microparticle immunoassay method. [...] as of 08/02/25 documented in this encounter [facility] 08-02-2025 History of Present illness Narrative Patient [...] discharged home ambulatory. documented in this encounter [facility] 07-03-2025 History of Present illness Narrative Flu shot Patient was offered the flu vaccination at their visit today and Patient accepted. PCP Notified. 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 [facility] - [address] [facility] [phone] Izabela London is a 85 y.o. male [...] to potential absorption interference - Referral to [facility] recommended - Patient advised to drink plenty of water and report any fever, chills, or worsening symptoms - Follow-up with [employer] [employer] to be scheduled Other Clinical Considerations: - Flu Vaccine: - Flu vaccine to be administered during this visit - Medication Management: - Patient to peanut picker new antibiotic prescription at [facility] pharmacy on [address] in [place] - Fall Prevention: - Patient uses [employer] when going out - No recent falls reported - Payroll Master Referral: - Exploring options for [employer] closer to patient's home in [place] - Considering options in [facility], or [place] - Preference for provider accepting [facility] insurance Izabela was seen today for toe [...] lie down for 30 minutes after - [facility]; Future Flu vaccine today Don't [...] or chills. He has never seen a [employer] [employer] before. Mr. London reports an allergy to [...] Jeramie Ching MD documented in this encounter [facility] 07-02-2025 Telephone encounter Note S: Patient called [...] 3 days. * You can get this yyuy-jov-nkqvksq (OTC) at a drugstore. CALL BACK IF: [...] finger or toe swollen Protocols used: Toe Xkwf-QGMCT-MR, Wound Infection Evqjkorah-MZTBT-PZ [facility] 07-02-2025 Miscellaneous Notes S: Patient called the [...] 3 days. * You can get this cmcr-yvo-jztvypl (OTC) at a drugstore. CALL BACK IF: [...] finger or toe swollen Protocols used: Toe Bipg-NJRKD-YD, Wound Infection Zprwrkicr-FILTJ-OZ documented in this encounter [facility] 06-04-2025 History of Present illness Narrative Images [...] (L) 05/10/2025 PSA Total (Diagnostic Post-Prostatectomy) Order: [id number] Status: Final result Next appt: 08/02/2025 at 11:00 AM in Infusion Therapy (CHAIR 19) Dx: Malignant neoplasm metastatic to bone... Test Result Released: Yes (seen) 0 Result Notes Component Ref Range & Units 1 mo ago 3 mo ago 6 mo ago 9 mo ago PSA Total <=0.200 ng/mL 9.250 High 8.814 High 5.100 High 1.608 R Resulting Agency [facility] SAC Assessment/Plan he appears to be in [...] R arm, 1 stick. Labs sent to [facility]. documented in this encounter [facility] 05-10-2025 History of Present illness Narrative Patient [...] ambulatory with . documented in this encounter [facility] 05-09-2025 Telephone encounter Note S: Patient spoke with [facility] nurse regarding neck pain B: Onset of [...] normal activities) Protocols used: Neck Pain or Mctulbiwk-UCTRZ-OA [facility] 05-09-2025 Miscellaneous Notes S: Patient spoke with [facility] nurse regarding neck pain B: Onset of [...] normal activities) Protocols used: Neck Pain or Fqlhzxxvo-DJTLG-BR documented in this encounter [facility] 04-09-2025 History of Present illness Narrative Patient [...] of the visit. Patient seen by Dr Adonay Solorzano drawn 1 stick left arm 1 lav 2 sst All labs sent to [facility] documented in this encounter [facility] 04-02-2025 Telephone encounter Note [facility] Oncology Care Plan Abiraterone Acetate 250 MG Pharmacy Recommendations/Education/Other I spoke with Izabela today regarding abiraterone + prednisone. He reports that he is doing well. Denies all side effects or concerns. No missed doses reported. Continuation of therapy is appropriate. Delivery scheduled for 04/04/25. F/U ~ 1 month or as clinically indicated Bhanu Diaz PharmD, [facility] Clinical Specialty Pharmacist [phone] [facility] 04-02-2025 Miscellaneous Notes [facility] Oncology Care Plan Abiraterone Acetate 250 MG Pharmacy Recommendations/Education/Other I spoke with Izabela today regarding abiraterone + prednisone. He reports that he is doing well. Denies all side effects or concerns. No missed doses reported. Continuation of therapy is appropriate. Delivery scheduled for 04/04/25. F/U ~ 1 month or as clinically indicated Bhanu Diaz PharmD, [facility] Clinical Specialty Pharmacist [phone] [facility] Oncology Care Plan Abiraterone Acetate 250 MG Pharmacy Recommendations/Education/Other I spoke with Izabela today regarding abiraterone + prednisone. He reports that he is doing well. Denies all side effects or concerns. No missed doses reported. Continuation of therapy is appropriate. F/U ~ 2 weeks for refill & check-in Bhanu Diaz PharmD, [facility] Clinical Specialty Pharmacist documented in this encounter [facility] 03-16-2025 Telephone encounter Note [facility] Oncology Care Plan Abiraterone Acetate 250 MG Pharmacy Recommendations/Education/Other I spoke with Izabela today regarding abiraterone + prednisone. He reports that he is doing well. Denies all side effects or concerns. No missed doses reported. Continuation of therapy is appropriate. F/U ~ 2 weeks for refill & check-in Bhanu Diaz PharmD, [facility] Clinical Specialty Pharmacist [facility] 03-06-2025 Telephone encounter Note [facility] Oncology Care Plan SUBJECTIVE Izabela London is a 85 year old Male who was referred to [facility] for clinical management services for [...] time. Patient is agreeable to care plan. [facility] will continue to manage clinical pharmacy services and coordinate refills/deliveries with the patient. Delivery is scheduled for 03/08/25. Planned start date 03/09/25. F/U 1 week after therapy start Bhanu Diaz PharmD, [facility] Clinical Specialty Pharmacist [phone] [facility] 03-06-2025 Miscellaneous Notes [facility] Pharm[facility] Oncology Care Plan SUBJECTIVE Izabela London is a 85 year old Male who was referred to [facility] for clinical management services for [...] time. Patient is agreeable to care plan. [facility] will continue to manage clinical pharmacy services and coordinate refills/deliveries with the patient. Delivery is scheduled for 03/08/25. Planned start date 03/09/25. F/U 1 week after therapy start Bhanu Diaz PharmD, [facility] Clinical Specialty Pharmacist documented in this encounter [facility] 03-05-2025 History of Present illness Narrative Patient [...] Performed by: [facility] Testing performed on the [employer] using a two-step chemiluminescent microparticle immunoassay method. [...] Performed by: [facility] Testing performed on the Solidmation using a two-step chemiluminescent microparticle immunoassay method. [...] patient that the Zytiga will come from [facility] as he had been using for previous treatment. The pt would like the Prednisone to be sent to [facility] if possible as well. Discussed [...] of consent form. documented in this encounter [facility] 02-13-2025 History of Present illness Narrative Pt arrived ambulatory from with Dr. Uriasfor C11 D1 and tx 11 Zometa infusion/Zoladex injection today. Pt notes knee pain is 3/10. CBC/PSA/CMP drawn via PIV and sent to [facility] at [facility]. See toxicity assessment. Pt denies any dental procedures in the past few months and denies any jaw pain/swelling. 1221- Pt tolerated infusion and injection in Q well and without incident. Pt discharged home without complication. Aware of next appt date/time. documented in this encounter [facility] 02-13-2025 History of Present illness Narrative Images [...] abnormal data PSA Total (Diagnostic Post-Prostatectomy) Order: [id number] Status: Final result Visible to patient: Yes (seen) Next appt: Today at 11:00 AM in Infusion Therapy (CHAIR 23) Dx: Malignant neoplasm metastatic to bone... 0 Result Notes Component Ref Range & Units 2 mo ago 5 mo ago PSA Total <=0.200 ng/mL 5.100 High 1.608 R Resulting Agency SAC SAC Narrative Performed by: SAC Testing performed on the Solidmation using a two-step chemiluminescent microparticle immunoassay method. [...] as of 11/21/24 documented in this encounter [facility] 02-13-2025 History of Present illness Narrative Images [...] abnormal data PSA Total (Diagnostic Post-Prostatectomy) Order: [id number] Status: Final result Visible to patient: Yes (seen) Next appt: Today at 11:00 AM in Infusion Therapy (CHAIR 23) Dx: Malignant neoplasm metastatic to bone... 0 Result Notes Component Ref Range & Units 2 mo ago 5 mo ago PSA Total <=0.200 ng/mL 5.100 High 1.608 R Resulting Agency SAC SAC Narrative Performed by: SAC Testing performed on the Solidmation using a two-step chemiluminescent microparticle immunoassay method. [...] as of 02/14/25 documented in this encounter [facility] 02-13-2025 Miscellaneous Notes Addended by: KRISTEN URIAS on: 02/14/2025 11:44 AM Modules accepted: Orders documented in this encounter [facility] 02-13-2025 Note Addended by: KRISTEN URIAS on: 02/14/2025 11:44 AM Modules accepted: Orders [facility] 02-12-2025 History of Present illness Narrative Images from the original note were not included. 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 02-12-2025 Instructions Bonnie Ceron MA - 02/12/2025 [...] Recommendations: A preventive eye exam by an phlebotomy specialist is recommended every 1-2 years to screen for glaucoma, cataracts, macular degeneration, and other eye disorders. A preventive dental visit is recommended every 6 months. Try to get at least 150 minutes of exercise per week or 10,000 steps per day on a pedometer. You need 1200-1500mg of calcium and 3340-8804 international units of vitamin D per day. [...] or a motorcycle documented in this encounter [facility] 02-09-2025 Telephone encounter Note Called patient to confirm tomorrow's appointment. No answer. Unable to leave message. [facility] 02-09-2025 Miscellaneous Notes Called patient to confirm tomorrow's appointment. No answer. Unable to leave message. documented in this encounter [facility] 12-14-2024 Telephone encounter Note Medication name: simvastatin [...] other doctor or facility: No Ordering provider: Humza Date of last office visit: 10/03/24 Date of next office visit: 02/12/25 Date of last refill: (see medication tab): 12/08/23 Updated/Validated preferred pharmacy: Yes Patient instructed to contact the pharmacy prior to picking up the medication: No [facility] 12-14-2024 Miscellaneous Notes Medication name: simvastatin (Zocor) Medication dosage: 20 mg (Miligrams Monthly quantity needed: 30 How many day supply requestin days Medication route: oral (PO) Medication administration time(s): daily If taking medication PRN, reason for taking medication: N/A If this is a controlled substance do you receive this or any other controlled medication from any other doctor or facility: No Ordering provider: Humza Date of last office visit: 10/03/24 Date of next office visit: 02/12/25 Date of last refill: (see medication tab): 12/08/23 Updated/Validated preferred pharmacy: Yes Patient instructed to contact the pharmacy prior to picking up the medication: No documented in this encounter [facility] 11-29-2024 Telephone encounter Note [facility] Oncology Care Plan SUBJECTIVE Izabela London is a 84 year old Male who was referred to [facility] for clinical management services for [...] No questions or concerns at this time. [facility] will continue to provide clinical pharmacy services and coordinate refills/deliveries with the patient. Delivery scheduled for 12/04/24. F/U ~ 6 months or as clinically indicated Bhanu Diaz PharmD, [facility] Clinical Specialty Pharmacist [facility] 11-29-2024 Miscellaneous Notes [facility] Oncology Care Plan SUBJECTIVE Izabela London is a 84 year old Male who was referred to [facility] for clinical management services for [...] No questions or concerns at this time. [facility] will continue to provide clinical pharmacy services and coordinate refills/deliveries with the patient. Delivery scheduled for 12/04/24. F/U ~ 6 months or as clinically indicated Bhanu Diaz PharmD, [facility] Clinical Specialty Pharmacist documented in this encounter [facility] 11-21-2024 History of Present illness Narrative Pt [...] All questions answered. documented in this encounter [facility] 11-21-2024 History of Present illness Narrative Patient [...] SST drawn, 1 stick Labs sent to [facility] documented in this encounter [email or web address] 10-03-2024 History of Present illness Narrative Subjective [...] by mouth daily. 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 Follow up with oncology as scheduled. Follow up in January with me as scheduled. Jeramie Ching MD documented in this encounter [facility] 10-03-2024 Instructions Bonnie Ceron MA - 10/03/2024 8:40 AM EST Follow up with oncology as scheduled. Follow up in January with me as scheduled. Jeramie Ching MD documented in this encounter [facility] 08-29-2024 History of Present illness Narrative Pt [...] no acute distress. documented in this encounter [facility] 08-29-2024 History of Present illness Narrative Patient [...] as of 08/29/24 documented in this encounter [facility] 08-18-2024 Telephone encounter Note Recent Visits Date Type Provider Dept 07/20/24 Office Visit MD Santana Oliveira 02/07/24 Office Visit MD Santana Oliveira 12/22/23 Office Visit Jeramie MD Santana Rivas Showing recent visits within past 365 days and meeting all other requirements Future Appointments Date Type Provider Dept 10/09/24 Appointment MD Santana Oliveira Showing future appointments within next 90 [...] prescription showing no refills in chart): Yes [facility] 08-18-2024 Miscellaneous Notes Recent Visits Date Type Provider Dept 07/20/24 Office Visit MD [facility]ana [facility] 02/07/24 Office Visit MD Santana Oliveiray 12/22/23 Office Visit MD [facility]ana [facility] Showing recent visits within past 365 days and meeting all other requirements Future Appointments Date Type Provider Dept 10/09/24 Appointment MD Santana Oliveira Showing future appointments within next 90 [...] in chart): Yes documented in this encounter [facility] 07-27-2024 Telephone encounter Note Spoke to patient he will call her-has not received any calls. [facility] 07-27-2024 Miscellaneous Notes Spoke to patient he will call her-has not received any calls. Name of caller: Abigail Contact phone number: [phone] Relationship to Patient: [facility] [place] Provider: Dr. Ching Practice: [facility] Chief Complaint/Reason for Call: Abigail with [facility] [place] reporting pt missed visit again today for home health and has been trying to contact him for the last 2 days. Best time of day caller can be reached: any Patient advised that office/PCP has 24-48 business hours to return their call: N/A documented in this encounter [facility] 07-27-2024 Telephone encounter Note Name of caller: Abigail Contact phone number: [phone] Relationship to Patient: [facility] [place] Provider: Dr. Ching Practice: [facility] Chief Complaint/Reason for Call: Abigail with [facility] [place] reporting pt missed visit again today for home health and has been trying to contact him for the last 2 days. Best time of day caller can be reached: any Patient advised that office/PCP has 24-48 business hours to return their call: N/A [facility] 07-20-2024 History of Present illness Narrative Flu [...] diarrhea overnight at home and admitted to [facility] with failure to thrive and bilateral buttocks decubiti. Patient discharged to rehab at [facility] 06/24/24 (near his home) and he began physical therapy. Patient developed a fever while at [facility], CT there showed a renal stone per [...] pt and nursing. 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 06/24/24 [facility] discharge note reviewed Internal med noted 05/31/24 [...] BUN 15 05/18/2024 0914 CREATININE 0.40 (L) 06/24/2024 040 CREATININE 0.45 (L) 05/18/2024 0914 Lab Results Component Value Date/Time CALCIUM 8.5 06/24/2024 0403 CALCIUM 9.3 05/18/2024 0914 ALKPHOS 59 06/24/2024 0403 ALKPHOS 42 05/18/2024 0914 AST 56 (H) 06/24/2024 0403 AST 48 (H) 05/18/2024 0914 ALT 63 (H) 06/24/2024 0403 ALT 58 (H) 05/18/2024 0914 BILITOT 0.5 06/24/2024 0403 BILITOT 0.7 05/18/2024 0914 Lab Results Component [...] home physical therapy Coronary artery disease involving rampart coronary artery of rampart heart without angina pectoris No angina, no sx Records from [facility], include urology notes, cystoscopy operative report, pathology report and discharge summary. Last cardiology note [facility] Flu vaccine today Followup with me in September for recheck. Call if new, persistent or worsening symptoms. Jeramie Ching MD documented in this encounter [facility] 07-20-2024 Instructions Jessy King MA - 07/20/2024 3:00 PM EDT Records from [facility], include urology notes, cystoscopy operative report and discharge summary. Last cardiology note [facility] Flu vaccine today Followup with me in September for recheck. Call if new, persistent or worsening symptoms. documented in this encounter [facility] 06-24-2024 Nurse Note given papers for discharge to [facility] facility. Patient given bottle of Xtandi, His bottle of meds. is transporting to facility. [facility] 06-24-2024 Nurse Note given papers for discharge to [facility] facility. Patient given bottle of Xtandi, His bottle of meds. is transporting to facility. documented in this encounter [facility] 06-24-2024 Plan of care note Problem: Safety - Adult Goal: Free from fall injury Outcome: Progressing Problem: Chronic Conditions and Co-morbidities Goal: Patient's chronic conditions and co-morbidity symptoms are monitored and maintained or improved Outcome: Progressing Problem: Skin/Tissue Integrity - Adult Goal: Skin integrity remains intact Outcome: Progressing [facility] 06-24-2024 History of Present illness Narrative Patient denies any new complaints, no worsening of diarrhea and cough, wounds healing well, denies any pain, patient will be discharged to SNF today due to lack of bed availability yesterday. Images from the original note were not included. PHYSICAL THERAPY [facility] Treatment Note Name/MRN: Izabela London ([id number]) Date of : 1940 Age: 84 y.o. Room/Bed: B1-158/B1-158 A Visit #: 2 out of 5 visits Discharge Recommendation: Prison Facility Equipment Needed: No (Pt owns a [...] Mobility Raw Score (No Stairs) : 11 -[facility] Goals Patient Stated Goal: Go to SNF [...] original note were not included. OCCUPATIONAL THERAPY [facility] Treatment Note Name/MRN: Izabela London ([id number]) Date of : 1940 Age: 84 y.o. Room/Bed: B1158/B1158 A Visit #: 1 out of 7 visits Discharge Recommendation: Prison Facility Equipment Needed: No Assessment Pt is [...] ADL) Marce Valencia OT Hospitalist Progress Note 06/22/[id number]: Please secure chat me for patient care issues. [phone]: Please secure chat [facility] Hospitalist for any issues. Subjective: Admit [...] Adult diet Regular; Low Sodium (2 gm) @[id number]@ 24HR INTAKE/OUTPUT: Intake/Output Summary (Last 24 hours) [...] management, protein supplementation, PT and OT recommended nursing home facility, antibiotic associated diarrhea. No worsening of cough or dyspnea 06/22 -patient feels better, encourage oral intake, currently doing well OT session, PT recommended nursing home facility, wound care for the buttock wounds, with chlorhexidine/collagenase ointment/moist dressing, no signs of infection, appreciate wound care input, vitamin C and zinc tablets, no recurrence of diarrhea -am labs, replace lytes prn -increase activity -DVT prophylaxis: [x] Lovenox [] Heparin [] SCDs [x] Encourage ambulation [] Already on Anticoagulation - GI prophylaxis : Anticipated Discharge - Date -June 23 or - Location -nursing home facility - Pending the following -bed availability and insurance approval Total time spent (which include face to face and non face to face encounters) : 42 minutes Toxic drug monitoring/narrow therapeutic index drug monitoring : # Drug name : Lovenox # Route administered : SC # Method of monitoring : CBC Extended Emergency Contact Information Primary Emergency Contact: Lori London Address: [address] of [facility] Mobile Relation: Spouse Secondary Emergency Contact: Jessica London Mobile Relation: Daughter Maria Antonia Baker MD Division of Hospitalist Medicine [facility] PAGER: Fish Nature chat Nutrition Assessment Type and Reason for [...] mass loss Fluid Accumulation: Mild Extremities, Generalized Refuge Manager Strength: Not Performed Nutrition Assessment: 84 y.o. [...] On: Kcal/kg Weight Used for Energy Requirements: [place] Weight for Energy Calculation (kg): 78 kg Total Energy Requirements (kcals/day): 5722-6889 (25-30) Weight Used for Protein Requirements: [place] Weight in Kg Used for Protein Requirements: [...] 06/29/23 96.3 kg (212 lb 4.8 oz) 06/01/23 93.4 kg (206 lb) Current Nutrition Therapies: [...] lb) (06/06/24) % Weight Change (Calculated): -1 [place] Body Weight (lbs) (Calculated): 172 lbs [place] Body Weight (Kg) (Calculated): 78 kg % [place] Body Weight (Calculated): 116.3 % BMI (kg/m2) [...] -until wounds healed) Radha Ortega RD Contact: *[phone] or via Secure Chat Images from the original note were not included. PHYSICAL THERAPY [facility] Treatment Note Name/MRN: Izabela London ([id number]) Date of : 1940 Age: 84 y.o. Room/Bed: B1-158/B1-158 A Visit #: 1 out of 5 visits Discharge Recommendation: Prison Facility Equipment Needed: No (Pt owns a [...] Overall Orientation Status: Oriented x4 Family/Caregiver Present: child(bahrati) Objective Bed Mobility Supine to sit: Mod [...] 1) Lucy Ward PT Hospitalist Progress Note 06/21/[id number]: Please secure chat me for patient care issues. [phone]: Please secure chat [facility] Hospitalist for any issues. Subjective: Admit Date: 06/20/2024 PCP: Jeramie Ching MD Room#: B1158/B1158 A Brief History: Patient is an 84-year-old [...] Adult diet Regular; Low Sodium (2 gm) @[id number]@ 24HR INTAKE/OUTPUT: Intake/Output Summary (Last 24 hours) [...] management, protein supplementation, PT and OT recommended nursing home facility, antibiotic associated diarrhea. No worsening of cough or dyspnea -am labs, replace lytes prn -increase activity -DVT prophylaxis: [x] Lovenox [] Heparin [] SCDs [x] Encourage ambulation [] Already on Anticoagulation - GI prophylaxis : Anticipated Discharge - Date -June 23 or - Location -nursing home facility - Pending the following -bed availability and insurance approval Total time spent (which include face to face and non face to face encounters) : 37 minutes Toxic drug monitoring/narrow therapeutic index drug monitoring : # Drug name : Enoxaparin # Route administered : Subcutaneous # Method of monitoring : CBC Extended Emergency Contact Information Primary Emergency Contact: Lori London Address: [address] [place] [address] of [place] Mobile Relation: Spouse Secondary Emergency Contact: Jessica London Mobile Relation: Daughter Maria Antonia Baker MD Division of Hospitalist Medicine [facility] PAGER: Fish Nature chat Images from the original note were not included. OCCUPATIONAL THERAPY [facility] Initial Evaluation Name/MRN: Izabela London ([id number]) Evaluation Date: 06/20/2024 Date of : 1940 Admission Date: 06/20/2024 9:46 AM Age: 84 y.o. Room/Bed: Having reviewed the treatment plan and goals for this patient, I certify that the plan of care below is medically necessary and appropriate. Discharge Recommendation: Continue to assess pending progress, Prison Facility Assessment IMPRESSION: Prior to admission, pt [...] artery stent 07/18/2018 Coronary artery disease involving rampart coronary artery of rampart heart without angina pectoris 07/18/2018 Drug-induced polyneuropathy [...] Responsibilities: Independent Receives Help From: Spouse Active Turning Machine Operator: Yes Prior Level of Function ADL [...] 19 ADL Inpatient CMS G-Code Modifier: CK Plan Pt would benefit [...] of Care supervision is transferred to a [facility] Occupational Therapist. Goals and/or treatment plan was established in collaboration with patient/family/other representatives. Images from the original note were not included. PHYSICAL THERAPY [facility] Initial Evaluation Name/MRN: Izabela London ([id number]) Evaluation Date: 06/20/2024 Date of : 1940 Admission Date: 06/20/2024 9:46 AM Age: 84 y.o. Room/Bed: Having reviewed the treatment plan and goals for this patient, I certify that the plan of care below is medically necessary and appropriate. Discharge Recommendation: Prison Facility, Continue to assess pending progress Equipment [...] artery stent 07/18/2018 Coronary artery disease involving rampart coronary artery of rampart heart without angina pectoris 07/18/2018 Drug-induced polyneuropathy [...] Responsibilities: Independent Receives Help From: Spouse Active Turning Machine Operator: Yes Prior Level of Function ADL [...] of Care supervision is transferred to a [facility] Services Physical Therapist. Goals and/or treatment plan was established in collaboration with patient/family/other representatives. documented in this encounter [facility] 06-24-2024 Miscellaneous Notes Problem: Safety - Adult Goal: Free from fall injury Outcome: Progressing Problem: Chronic Conditions and Co-morbidities Goal: Patient's chronic conditions and co-morbidity symptoms are monitored and maintained or improved Outcome: Progressing Problem: Skin/Tissue Integrity - Adult Goal: Skin integrity remains intact Outcome: Progressing Patient Choice Patient Name: IZABELA LONDON Date of : 1940 All Providers Sent Referral Name: [facility] Phone: [phone] Address: [address] [id number] Name: [facility] Address: [address] [place], [place] [id number] Case Management Daily Note/Update Discharge Plan: [facility] Auth Status: approved Discharge [...] for the shift include absent of fall Tcc informed by [facility] that pt needs to bring Xtandi medication. Pt and spouse informed to bring. Tcc placed a call to Pt's spouse Lori to update and Lori agrees to plan. Confirmed that family wants to transport pt when dc ready Tcc following for insurance auth. Images from the original note were not included. Care Management Progress Note Tcc met with pt at Bedside. Tcc confirmed [facility] accepted. Pt informed that [facility] [place] is all [facility] and Memory care only. [facility] completed [facility] precert request and Tasked SET KEY DRIVER director to initiate precert with [facility]. DCP [facility]. Family asking to transport at dc. [...] fall Referral placed to SNF - 1. [facility] 2. [facility] per TCC request. Await review and response regarding ability to accept. TCC notified. Tc cmet with pt and family to review skilled rehab recommendations. List provided. Tcc was informed by pt and family that they would like referral placed to [facility] and [facility]. Tcc tasked SET KEY DRIVER to place referrals. Problem: Safety - Adult [...] improved Outcome: Progressing documented in this encounter [facility] 06-24-2024 Note Formatting of this n ote might be different from the original. Patient Choice Patient Name: IZABELA LONDONN: [id number] Date of : 1940 All Providers Sent Referral Name: [facility] Phone: [phone] Address: [address] [place] [address] Name[facility] Address: [address] [place] [address] [facility] 06-24-2024 Note Formatting of this n ote might be different from the original. Patient Choice Patient Name: IZABELA LONDON Date of : 1940 All Providers Sent Referral Name: [facility] Phone: [phone] Address: [address] [place], [place] [address] [address] Name: [facility] Address: [address] [place] [address] [facility] [facility] Note Formatting of this n ote might be different from the original. Case Management Daily Note/Update Discharge Plan: [facility] Auth Status: approved Discharge [...] Discharge Milestones / Delays updated as appropriate. [facility] 06-24-2024 Note Formatting of this n ote might be different from the original. Case Management Daily Note/Update Discharge Plan: [facility] Auth Status: approved Discharge [...] Discharge Milestones / Delays updated as appropriate. [facility] 06-24-2024 Plan of care note [...] for the shift include absent of fall [facility] 06-23-2024 Hospital course Narrative [facility] Hospitalist Discharge Summary Izabela London : [...] following, received PT and OT who recommended nursing home facility, given IV fluids, able to tolerate [...] These medications were sent to [facility] [address] [place] [id number] Hours: Wednesday to Wednesday 10 am to 6 pm ascorbic acid 500 MG tablet collagenase 250 UNIT/GM ointment polyethylene glycol (PEG) 3350 17 g packet zinc sulfate 220 (50 Zn) MG capsule Recommended Follow-up: Wound Care [address] [address] Complexity of Follow up: [] Moderate Complexity: follow up within 7-14 calendar days (04708) [x] Severe Complexity: follow up within 7 calendar days (46100) Follow up Testing, Pending results or Referrals [...] the patient. Signed: @ @ [facility] 06/23/2024, 3:10 PM This report was created using the HASH voice-activated system. Despite prompt dictation and careful editorial review, there may be subtle contextual errors in this report, due to misrecognition of the spoken word. documented in this encounter [email or web address] 06-23-2024 Note Formatting of this n ote might be different from the original. Tcc informed by [facility] that pt needs to bring Xtandi medication. Pt and spouse informed to bring. [email or web address] 06-23-2024 Note Formatting of this n ote might be different from the original. Tcc informed by [facility] that pt needs to bring Xtandi medication. Pt and spouse informed to bring. [email or web address] 06-23-2024 Note Formatting of this n ote might be different from the original. Tcc placed a call to Pt's spouse Lori to update and Lori agrees to plan. Confirmed that family wants to transport pt when dc ready Tcc following for insurance auth. [facility] 06-23-2024 Note Formatting of this n ote might be different from the original. Tcc placed a call to Pt's spouse Lori to update and Lori agrees to plan. Confirmed that family wants to transport pt when dc ready Tcc following for insurance auth. [facility] 06-23-2024 Hospital Discharge instructions Alisia Manzano RN [...] Information Primary Emergency Contact: Lori London Address: [address] [place] [address] Mobile Relation: Spouse Secondary Emergency Contact: SuryaJessica Mobile Relation: Daughter Past Surgical History: Past [...] 08/03/2010, 08/09/2014, 08/09/2014, 07/25/2015, 09/09/2016, 07/18/2018 Novel [id number], preservative-free 12/16/2009, 12/16/2009 PPD Test 05/11/2015 [employer] SARS-CoV-2 Vaccination 11/23/2020, 12/13/2020, 08/10/2021 Pneumococcal Conjugate [...] of Burkitt's lymphoma Coronary artery disease involving rampart coronary artery of rampart heart without angina pectoris Drug-induced polyneuropathy (HCC) [...] assistance Toileting Minimal assistance Feeding Minimal assistance Balance Assembler Minimal assistance Med Delivery no Wound Care Documentation and Therapy: Wound/Incision 06/20/24 Pressure Injury Buttock Left (Active) Site Assessment Unable to assess 06/22/24 230 Kylah-Wound Assessment Intact;Red 06/21/24 0853 Wound Length (cm) 1 cm 06/20/24 1637 Wound Width (cm) 1 cm 06/20/24 1637 Wound Surface Area (cm^2) 1 cm^2 06/20/24 1637 Odor None 06/21/24 210 Drainage Amount None 06/21/242100 Treatments Moisture barrier ointment 06/21/242100 Primary Dressing ABD 06/21/242100 Dressing Status Clean, dry & intact 06/22/24 2300 Number of days: 2 Wound/Incision 06/20/24 Pressure Injury Buttock Right (Active) Site Assessment Unable to assess 06/22/24 2300 Kylah-Wound Assessment Intact;Red 06/21/24 0853 Wound Length (cm) 4 cm 06/20/24 1637 Wound Width (cm) 3 cm 06/20/24 1637 Wound Surface Area (cm^2) 12 cm^2 06/20/24 1637 Odor None 06/21/242100 Drainage Amount None 06/21/242100 Treatments Moisture barrier ointment 06/21/242100 Primary Dressing ABD 06/21/242100 Dressing Status Clean, dry & intact 06/22/24 230 Number of days: 2 Elimination: Continence: Bowel: [...] all that are sent with patient): phani PATEL SIGNATURE: MANAGEMENT/SOCIAL WORK SECTION Inpatient Status Date: 06/20/2024 Discharging to Facility/ Agency Name: [facility] Address: [address] [place] [id number] Fax: Dialysis Facility (if applicable) Dynamics Ax Consultant/Animal Therapist signature: ICIAN SECTION Name: Izabela London Prognosis: Good Condition at Discharge: stable Rehab Potential (if transferring to Rehab): good Recommended Labs or Other Treatments After Discharge: PT/OT, wound care to the buttocks and sacrum The individual is being admitted to a nursing facility directly from an [facility] or a unit of a [facility] that is not operated by or licensed by [facility] under section 5119.14 or 5160-3-15.1 5 The individual requires the level of services provided by a nursing facility for the condition for which he or she was treated in the hospital and, Physician Certification: I certify the above information and transfer of Izabela London is necessary for the continuing treatment of the diagnosis listed and that he requires nursing home facility for less than 30 days. Update Admission H&P: No change in H&P PHYSICIAN SIGNATURE: documented in this encounter [facility] 06-23-2024 Note Formatting of this n ote is different from the original. Images from the original note were not included. Care Management Progress Note Tcc met with pt at Bedside. Tcc confirmed [facility] accepted. Pt informed that [facility] [place] is all [place] and Memory care only. Pt verbalized okay with [facility]. Tcc completed [facility] precert request and Tasked SET KEY DRIVER director to initiate precert with [facility]. DCP [facility]. Family asking to transport at mi. Tcc tasked Weekend DP to follow up [...] Stay (Days): 1 GMLOS: No GMLOS Documented [facility] 06-23-2024 Note Formatting of this n ote is different from the original. Images from the original note were not included. Care Management Progress Note Tcc met with pt at Bedside. Tcc confirmed [facility] accepted. Pt informed that [facility] [place] is all [place] and Memory care only. Pt verbalized okay with [facility]. Tcc completed [facility] Care precert request and Tasked SET KEY DRIVER director to initiate precert with [facility]. DCP [facility]. Family asking to transport [...] Stay (Days): 1 GMLOS: No GMLOS Documented T [facility] 06-23-2024 Plan of care note Problem: Safety [...] for the shift include absent of fall [facility] 06-22-2024 Note Formatting of this n ote might be different from the original. Referral placed to [place] [id number] [facility] per TCC request. Await review and response regarding ability to accept. TCC notified. T [facility] 06-22-2024 Note Formatting of this n ote might be different from the original. Referral placed to [place] [id number] [facility] per TCC request. Await review and response regarding ability to accept. TCC notified. T [facility] 06-22-2024 Note Formatting of this n ote might be different from the original. Tc cmet with pt and family to review skilled rehab recommendations. List provided. Tcc was informed by pt and family that they would like referral placed to [facility]. Tcc tasked SET KEY DRIVER to place referrals. [facility] 06-22-2024 Note Formatting of this n ote might be different from the original. Tc cmet with pt and family to review skilled rehab recommendations. List provided. Tcc was informed by pt and family that they would like referral placed to [facility]. Tcc tasked SET KEY DRIVER to place referrals. [facility] 06-22-2024 Plan of care note Problem: Safety - Adult Goal: Free from fall injury Outcome: Progressing Problem: Chronic Conditions and Co-morbidities Goal: Patient's chronic conditions and co-morbidity symptoms are monitored and maintained or improved Outcome: Progressing Problem: Skin/Tissue Integrity - Adult Goal: Skin integrity remains intact Outcome: Progressing T [facility] 06-22-2024 Plan of care note Problem: Safety - Adult Goal: Free from fall injury Outcome: Progressing Problem: Chronic Conditions and Co-morbidities Goal: Patient's chronic conditions and co-morbidity symptoms are monitored and maintained or improved Outcome: Progressing Problem: Skin/Tissue Integrity - Adult Goal: Skin integrity remains intact Outcome: Progressing Goal: Incisions, wounds, or drain sites healing without S/S of infection Outcome: Progressing [facility] 06-21-2024 Consult note Formatting of th is note is different from the original. Images from the original note were not included. 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 [...] my own independent evaluation of this patient. [facility] 06-21-2024 Consult note Formatting of th is note is different from the original. Images from the original note were not included. 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 [...] of this patient. documented in this encounter [facility] 06-21-2024 Plan of care note Problem: Safety - Adult Goal: Free from fall injury Outcome: Progressing met Set bed and chair brake on/ call light in his reach Problem: Skin/Tissue Integrity - Adult Goal: Skin integrity remains intact Outcome: Progressing met Repositioning/barrier cream apply [facility] 06-21-2024 Plan of care note Problem: Safety - Adult Goal: Free from fall injury Outcome: Progressing Problem: Chronic Conditions and Co-morbidities Goal: Patient's chronic conditions and co-morbidity symptoms are monitored and maintained or improved Outcome: Progressing [facility] 06-20-2024 Emergency department Note Pt states he would like the aspirin and Lovenox given at night. Provider Samuel notified. Wanda Becerril RN 06/20/24 1538 Wanda Becerril RN 06/20/24 1539 Wanda Becerril RN 06/20/[address] [facility] 06-20-2024 Emergency department Note Pt states he [...] VEIN AV GRAFT TONSILLECTOMY AND ADENOIDECTOMY (HISTORICAL) 194 TOTAL KNEE ARTHROPLASTY Left 07/05/2019 CURRENT MEDICATIONS [...] min Stress: No Stress Concern Present (02/03/2023) [facility] - Occupational Stress Questionnaire Feeling of Stress : Not at all Social Connections: Socially Integrated (02/03/2023) Social Connection and Isolation Panel [NHANES] Frequency of Communication with Friends and Family: More than three times a week Frequency of Social Gatherings with Friends and Family: Three times a week Attends Yazidi Services: More than 4 times per year [...] PA-C 06/21/24 1148 documented in this encounter [facility] 06-20-2024 Emergency department Note Meal ordered Wanda Becerril RN 06/20/[address] [facility] 06-20-2024 History and physical note Attending History [...] min Stress: No Stress Concern Present (02/03/2023) [facility] - Occupational Stress Questionnaire Feeling of Stress : Not at all Social Connections: Socially Integrated (02/03/2023) Social Connection and Isolation Panel [NHANES] Frequency of Communication with Friends and Family: More than three times a week Frequency of Social Gatherings with Friends and Family: Three times a week Attends Yazidi Services: More than 4 times per year [...] of Onset Cancer Father Papa 77 Colon Medications Prior to Admission: No [...] Primary Emergency Contact: Lori London Address: [address] [place] [address] [place] Relation: Spouse Secondary Emergency Contact: Jessica London Mobile Relation: Daughter [employer]VANC[employer]ANNING Izabela London : 1940 Primary Care Physician: Jeramie Ching MD The patient and/or family/surrogate voluntarily agreed to participate in ACP services. Patient s cognitive capacity: Good Code Status: [_*] [FULL CODE - Continue all advanced life support: CPR,intubation,invasive procedures] [_] [DNR-CCA - DO NOT do CPR, intubation] [_] [DNR-ACADEMIC ADVISING DIRECTOR - Comfort care only] [_] DNR form [...] Antonia Baker MD Division of Hospitalist Medicine [facility] T [facility] 06-20-2024 History and physical note Attending History [...] min Stress: No Stress Concern Present (02/03/2023) [facility] - Occupational Stress Questionnaire Feeling of Stress : Not at all Social Connections: Socially Integrated (02/03/2023) Social Connection and Isolation Panel [NHANES] Frequency of Communication with Friends and Family: More than three times a week Frequency of Social Gatherings with Friends and Family: Three times a week Attends Yazidi Services: More than 4 times per year [...] of Onset Cancer Father Papa 77 Colon Medications Prior to Admission: No [...] Primary Emergency Contact: Lori London Address: [address] [place], [place] [address] [place] [address] [place] Relation: Spouse Secondary Emergency Contact: Jessica London Mobile Relation: Daughter ADVANCED C[employer] PLANNING Izabela London : 1940 Primary Care Physician: Jeramie Ching MD The patient and/or family/surrogate voluntarily agreed to participate in ACP services. Patient s cognitive capacity: Good Code Status: [_*] [FULL CODE - Continue all advanced life support: CPR,intubation,invasive procedures] [_] [DNR-CCA - DO NOT do CPR, intubation] [_] [DNR-ACADEMIC ADVISING DIRECTOR - Comfort care only] [_] DNR form [...] Antonia Baker MD Division of Hospitalist Medicine [facility] documented in this encounter [facility] 06-20-2024 Emergency department Note Barrier cream applied to buttock/wounds. Pt tolerated well. Pt was turned on left side pillow propped under buttock. Wanda Becerril RN 06/20/24 1032 Wanda Becerril RN 06/20/[address] [facility] 06-20-2024 Physician Emergency department Note Images from [...] VEIN AV GRAFT TONSILLECTOMY AND ADENOIDECTOMY (HISTORICAL) 194 TOTAL KNEE ARTHROPLASTY Left 07/05/2019 CURRENT MEDICATIONS [...] min Stress: No Stress Concern Present (02/03/2023) [facility] - Occupational Stress Questionnaire Feeling of Stress : Not at all Social Connections: Socially Integrated (02/03/2023) Social Connection and Isolation Panel [NHANES] Frequency of Communication with Friends and Family: More than three times a week Frequency of Social Gatherings with Friends and Family: Three times a week Attends Yazidi Services: More than 4 times per year [...] Medicine Provider Judy Casanova PA-C 06/21/[address] [facility] 06-06-2024 History of Present illness Narrative Pt [...] no acute distress. documented in this encounter [email or web address] 06-06-2024 History of Present illness Narrative Patient [...] as of 06/06/24 documented in this encounter [facility] 05-31-2024 History of Present illness Narrative Images from the original note were not included. . [facility] [address] [place] [address] [address] [facility] [address] Dept: [phone] Dept Visit type: Established Reason for Visit: [...] for at least 30 minutes after., Starting 05/31/2024, Until 06/10/2024, Normal - albuterol (Ventolin HFA) 108 (90 Base) MCG/ACT inhaler; Inhale 2 puffs every 4 hours as needed for wheezing or shortness of breath., Starting 05/31/2024, Until Giovanna 05/31/2025 at 2359, Normal 2. [...] did have a visit from family from [place] who were ill with an upper respiratory [...] CHERYL Wright CNP documented in this encounter [facility] 05-31-2024 Telephone encounter Note S: Patient spoke with [facility] nurse regarding Stomach pain, congestion and diarrhea [...] urinary difficulty, R: POD schedule 05/31/24 at [facility] with Rosita Olsen OSKAR. Pt advised of date, time, provider and address to appointment. Home care advise given for abdominal pain. Patient understands care advice. No further needs at this time. Patient instructed to call back with new or worsening symptoms. Reason for Disposition [1] MILD-MODERATE pain AND [2] constant AND [3] present > 2 hours Protocols used: Abdominal Pain - [id number] [facility] 05-31-2024 Miscellaneous Notes S: Patient spoke with [facility] nurse regarding Stomach pain, congestion and diarrhea [...] urinary difficulty, R: POD schedule 05/31/24 at [facility] with Re[facility] OSKAR. Pt advised of date, time, provider and address to appointment. Home care advise given for abdominal pain. Patient understands care advice. No further needs at this time. Patient instructed to call back with new or worsening symptoms. Reason for Disposition [1] MILD-MODERATE pain AND [2] constant AND [3] present > 2 hours Protocols used: Abdominal Pain - [id number] documented in this encounter [facility] 05-03-2024 Telephone encounter Note Medication name: Calcium [...] medication tab): 09/24/2022 Updated/Validated preferred pharmacy: Yes [facility]/pharmacy #[id number] [place] [address] Patient instructed to contact the pharmacy prior to picking up the medication: No [facility] 05-03-2024 Miscellaneous Notes Medication name: Calcium Carb-Cholecalciferol [...] medication tab): 09/24/2022 Updated/Validated preferred pharmacy: Yes [id number] [place], [place] - [address] [facility] Patient instructed to contact the pharmacy prior to picking up the medication: No documented in this encounter [facility] 03-07-2024 History of Present illness Narrative 1043 [...] NAD. Calendar updated. documented in this encounter [facility] 03-07-2024 History of Present illness Narrative Patient [...] 1.803 m (5' 11) Wt 92 kg ( lb 12.8 oz) SpO2 95% BMI 28.28 [...] 0.51 (L) 02/28/2024 PSA Total (Screening) Order: [id number] Status: Final result Visible to patient: Yes [...] compared to the equimolar-standardized total PSA (Shirin [place]). Comparison of serial PSA results should be interpreted with this fact in mind. This test was performed using the Siemens chemiluminescent method. Values obtained from different assay methods cannot be used interchangeably. PSA levels, regardless of value, should not be interpreted as absolute evidence of the presence or absence of disease. [facility] Assessment/Plan he appears to be in [...] as of 03/07/24 documented in this encounter [facility] 02-07-2024 History of Present illness Narrative Images from the original note were not included. [facility] [address] [place] [address] [address] [facility] [address] Dept: [phone] Dept Chief Complaint: Izabela London is an [...] lower extremities Circulatory Coronary artery disease involving rampart coronary artery of rampart heart without angina pectoris Essential hypertension Genitourinary [...] to make appointment with his / her phlebotomy specialist- followed by Dr. Pardo in [place], patient will call and schedule, no sx. [...] questions 9-10?: 1 documented in this encounter [facility] 02-07-2024 Instructions Bonnie Ceron MA - 02/07/2024 [...] Recommendations: A preventive eye exam by an phlebotomy specialist is recommended every 1-2 years to screen for glaucoma, cataracts, macular degeneration, and other eye disorders. A preventive dental visit is recommended every 6 months. Try to get at least 150 minutes of exercise per week or 10,000 steps per day on a pedometer. You need 1200-1500mg of calcium and 3104-4164 international units of vitamin D per day. [...] or a motorcycle documented in this encounter [employer] 2024 Telephone encounter Note Name of caller: zIabela Contact phone number: [phone] Relationship to Patient: Self Provider: Practice: Oncology Chief Complaint/Reason for Call: Pt is returning missed call not sure what was needed but pt is needing a refill for enzalutamide (Xtandi) 40 MG chemo capsule 4 tablets a day please advise Best time of day caller can be reached: any Patient advised that office/PCP has 24-48 business hours to return their call: no [facility] 2024 Miscellaneous Notes Name of caller: Izabela Contact phone number: [phone] Relationship to Patient: Self Provider: Practice: Oncology [...] their call: no documented in this encounter [facility] 12-22-2023 History of Present illness Narrative Subjective [...] no new sx. 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 Malignant neoplasm metastatic to bone (HCC) Controlled with current medication Plenty of fluids Continue mucinex dm twice daily. Call if new, persistent or worsening symptoms. JERAMIE CHING MD documented in this encounter [email or web address] 12-22-2023 Instructions Bonnie Ceron MA - 12/22/2023 9:00 AM EST Plenty of fluids Continue mucinex dm twice daily. Call if new, persistent or worsening symptoms. JERAMIE CHING MD documented in this encounter [facility] 12-14-2023 History of Present illness Narrative Here [...] his lab work. documented in this encounter [facility] 12-08-2023 Telephone encounter Note Last appointment 02/03/2023 , Next appointment is 02/07/2024 Last filled 12/11/22 90 days [address] [facility] 12-08-2023 Miscellaneous Notes Last appointment 02/03/2023 , Next appointment is 02/07/2024 Last filled 12/11/22 90 days 3 refills documented in this encounter [facility] 12-07-2023 History of Present illness Narrative Patient [...] compared to the equimolar-standardized total PSA (Shirin Needham). Comparison of serial PSA results should be interpreted with this fact in mind. This test was performed using the Siemens chemiluminescent method. Values obtained from different assay methods cannot be used interchangeably. PSA levels, regardless of value, should not be interpreted as absolute evidence of the presence or absence of disease. [facility] Assessment/Plan he appears to be in [...] as of 12/07/23 documented in this encounter [facility] 11-23-2023 Telephone encounter Note Last appointment Visit 02.03.2023, Next appointment is Visit date not found Last filled 11.26.2022 & 07.22.[address] [facility] 11-23-2023 Miscellaneous Notes Last appointment Visit 02.03.2023, [...] the medication: Yes documented in this encounter [facility] 11-23-2023 Telephone encounter Note Medication name carvedilol [...] prior to picking up the medication: Yes [facility] 09-29-2023 Miscellaneous Notes Patient's request for medication is as follows: Requested Prescriptions Pending Prescriptions Disp Refills lisinopril (ZESTRIL) 10 mg tablet [Pharmacy Med Name: LISINOPRIL 10 MG TABLET] 30 tablet 0 Sig: take 1 tablet by mouth every day Last seen 12/09/2021. Over due follow up scheduled for 10/07/2023. Prescription(s) as above. Please process accordingly. Delphine Palomares LPN documented in this encounter [facility] 09-21-2023 History of Present illness Narrative Pt arrived for IV zometa and zoladex. PIV placed. CMP drawn prior to appointment. CrCl: 129. 1215: Ordered treatment completed. Patient discharged without any issues. Patient has a copy of next infusion appointment and verbalizes understanding. All questions answered. documented in this encounter [facility] 09-07-2023 History of Present illness Narrative Patient [...] to this encounter. documented in this encounter [facility] 06-30-2023 Miscellaneous Notes Last seen . Clerical to call to schedule overdue Follow up. Onel Shepherd LPN documented in this encounter [facility] 06-30-2023 Miscellaneous Notes Patient's request for medication is as follows: Requested Prescriptions Pending Prescriptions Disp Refills lisinopril (ZESTRIL) 10 mg tablet [Pharmacy Med Name: LISINOPRIL 10 MG TABLET] 90 tablet 0 Sig: Take 1 tablet by mouth once daily. Last seen . Message sent to Clerical to call to schedule overdue Follow up. Prescription(s) as above. Please process accordingly. Onel Shepherd LPN documented in this encounter [facility] 06-29-2023 History of Present illness Narrative Patient [...] to this encounter. documented in this encounter [facility] 05-31-2023 Telephone encounter Note Medication name: tamsulosin [...] medication tab): 02/06/22 Updated/Validated preferred pharmacy: Yes [facility]/pharmacy #[id number] Patient instructed to contact the pharmacy prior to picking up the medication: Yes [facility] 05-31-2023 Miscellaneous Notes Medication name: tamsulosin (FLOMAX) [...] 02/06/22 Updated/Validated preferred pharmacy: Yes [id number] [place], [place] - [address] Patient instructed to contact the pharmacy prior to picking up the medication: Yes documented in this encounter [facility] 04-07-2023 Telephone encounter Note Referral requested, please fax to requested provider. JERAMIE CHING MD [facility] 04-07-2023 Miscellaneous Notes Referral requested, please fax to requested provider. JERAMIE CHING MD Name of caller: Izabela Contact phone number: [phone] Relationship to Patient: patient Provider: [facility] Practice: [facility] Chief Complaint/Reason for Call: Pt. States he needs his referral sent to [facility] . Reference TE 6 Please advise. Best time of day caller can be reached: Any Patient advised that office/PCP has 24-48 business hours to return their call: N/A documented in this encounter [facility] 04-06-2023 Telephone encounter Note Name of caller: Izabela Contact phone number: [phone] Relationship to Patient: patient Provider: [facility] Practice: [facility] Chief Complaint/Reason for Call: Pt. States he needs his referral sent to [facility] . Reference TE 6.9.2023 Please advise. Best time of day caller can be reached: Any Patient advised that office/PCP has 24-48 business hours to return their call: N/A [facility] 03-25-2023 History of Present illness Narrative Patient arrives ambulatory for zometa and zoladex. Patient notes continued leg pain. No acute distress noted. PIV inserted, and labs collected. CBC, CMP, and PSA sent to [facility]. Plan of care discussed. Denies any needs. 1153: Tolerated injection well. No signs of reaction. Site benign. 1233: Tolerated infusion well. No signs of reaction. Calendar updated with patient. Verbalized understanding of discharge and follow up care. Discharged home ambulatory. documented in this encounter [facility] 03-25-2023 History of Present illness Narrative Patient [...] lav 1 sst Cbc cmp sent to [facility] documented in this encounter [facility] 03-08-2023 History of Present illness Narrative Specialty [...] to assess for adherence. Patient fills at [facility]. Reviewed administration instructions and confirmed adherence. Patient reported missing doses: none Assessment/Plan Patient therapy reviewed for appropriateness. Spoke with Izabela this morning and he reports doing very well on therapy. He continues to take 4 capsules daily and reports excellent adherence. Reviewed side effects- Izabela denies any at this time. Aware of upcoming appt on 03/25. [facility] will continue to coordinate refills of enzalutamide and provide clinical pharmacy services. Follow up plan: Annually Confirmed patient has direct phone number for specialty pharmacy personnel Kimberlee Alva, PharmD, BCACP, CSP [facility] [phone] documented in this encounter [facility] 02-15-2023 Telephone encounter Note Ordered. JERAMIE CHING MD [facility] 02-15-2023 Miscellaneous Notes Ordered. JERAMIE CHING MD Patient requesting refill on Calcium Carb-Cholecalciferol (OYSTER SHELL CALCIUM W/D) 500-200 MG-UNIT TABS tablet. [facility]/pharmacy #[id number] [facility] [address] [facility] P: [phone] F: [phone] documented in this encounter [facility] 02-15-2023 Telephone encounter Note Patient requesting refill on Calcium Carb-Cholecalciferol (OYSTER SHELL CALCIUM W/D) 500-200 MG-UNIT TABS tablet. [facility]/pharmacy #[id number] [facility] [address] [facility] P: [phone] F: [phone] [facility] 02-03-2023 History of Present illness Narrative Images from the original note were not included. [facility] [address] [place] [address] [place] [id number] Dept: [phone] Dept Chief Complaint: Izabela London is an [...] at all Patient Health Questionnaire-2 Score: 0 [place] Suicide Severity Rating Scale (Screener/Recent Self-Report) 1. [...] 20/40 20/20 20/20 documented in this encounter [email or web address] 02-03-2023 Instructions Pretty Aburto MA - 02/03/2023 8:00 AM EDT Labs today Schedule eye exam for followup routine Followup with oncology as scheduled. Annual wellness visit with me after one year. documented in this encounter [email or web address] 03-01-2023 History of Present illness Narrative Pt here [...] no acute distress documented in this encounter [facility] 12-23-2022 History of Present illness Narrative Patient [...] Bone metastasis (HCC) documented in this encounter [facility] 12-11-2022 Telephone encounter Note Medication name: simvastatin [...] prior to picking up the medication: No [facility] 12-11-2022 Miscellaneous Notes Medication name: simvastatin (Zocor) [...] the medication: No documented in this encounter [facility] 11-26-2022 Telephone encounter Note Medication name: carvedilol [...] prior to picking up the medication: Yes [facility] 11-26-2022 Miscellaneous Notes Medication name: carvedilol (COREG) [...] the medication: Yes documented in this encounter [facility] 09-24-2022 History of Present illness Narrative Patient arrived ambulatory with a cane, A&Ivonne, pt here for zometa and zoladex every [...] drawn from IV start and sent to [facility]. CMP and PSA drawn from IV start and sent to [facility]. 1155 Pt rosita zoladex in the left abd well. 1215 Gave pt a copy of the calender and they verb underst. 1304 Pt tolerated treatment well without incident. Pt verbalizes an understanding of their discharge instructions and when to call their physician. Pt aware of their next scheduled appointment. documented in this encounter [facility] 06-30-2022 Miscellaneous Notes Patient's request for medication is as follows: Requested Prescriptions Pending Prescriptions Disp Refills lisinopril (ZESTRIL, PRINIVIL) 10 mg tablet [Pharmacy Med Name: LISINOPRIL 10 MG TABLET] 90 tablet Sig: TAKE 1 TABLET BY MOUTH EVERY DAY Last seen 12/09/[address] Ferrell NO SHOW FOR 06/23/2022 APPOINTMENT Prescription(s) as above. Please process accordingly. Camila Irene MA documented in this encounter [facility] 06-25-2022 History of Present illness Narrative Pt [...] next appt date/time. documented in this encounter [email or web address] Work Phone: 04-02-2022 History of Present illness Narrative [...] packet provided to pt from the office. 1505: Pt tolerated Zoladex injection in LLQ abdomen well and without incident. Calender updated and provided copy to pt. Pt discharged home without complication. Aware of next appt date/time. [facility] Work Phone: 05-18-2017 History of Past i llness Narrative Problem Noted Date Resolved Date Angina pectoris 05/18/2017 documented as of this encounter (statuses as of 07/02/2022) [facility]07-25-2017 History of Past illness Narrative* Problem Noted Date Diagnosed Date Resolved Date Angina pectoris 05/18/2017 documented as of this encounter (statuses as of 06/30/2023) [facility]2017 History of Past illness Narrative* Problem Noted Date Diagnosed Date Resolved Date Angina pectoris 05/18/2017 documented as of this encounter (statuses as of 07/02/2023) [facility]2017 History of Past illness Narrative* Problem Noted Date Diagnosed Date Resolved Date Angina pectoris 05/18/2017 documented as of this encounter (statuses as of 09/30/2023) [facility] note* Diagnosis Malignant neoplasm of prostate (HCC) Malignant neoplasm of prostate 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 Prostate cancer (HCC)- Primary Malignant neoplasm of prostate [facility] Diagnosis Malignant neoplasm metastatic to bone (HCC)- Primary Prostate cancer (HCC) Malignant neoplasm of prostate [facility] Diagnosis Prostate cancer (HCC) Malignant neoplasm of prostate Malignant neoplasm metastatic to bone (HCC) [facility] Elevated PSA- Primary Elevated prostate specific antigen (PSA) 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 Diagnosis Malignant neoplasm metastatic to bone (HCC)- Primary Prostate cancer (HCC) Malignant neoplasm of prostate [facility] Diagnosis Essential hypertension Unspecified essential hypertension [facility] Diagnosis Prostate cancer (HCC) Malignant neoplasm of prostate [facility] Diagnosis Prostate cancer (HCC)- Primary Malignant neoplasm of prostate Encounter for screening for malignant neoplasm of prostate [facility] Diagnosis Malignant neoplasm metastatic to bone (HCC) Prostate cancer (HCC) Malignant neoplasm of prostate 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 Diagnosis Prostate cancer (HCC) Malignant neoplasm of prostate [facility] Diagnosis Prostate cancer (HCC)- Primary Malignant neoplasm of prostate Screening for prostate cancer Special screening for malignant neoplasm of prostate [facility] Diagnosis Malignant neoplasm metastatic to bone (HCC)- Primary Prostate cancer (HCC) Malignant neoplasm of prostate 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 Diagnosis Malignant neoplasm metastatic to bone (HCC) Prostate cancer (HCC) Malignant neoplasm of prostate 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) [facility] Diagnosis Prostate cancer (HCC) Malignant neoplasm of prostate [facility] Diagnosis Routine general medical examination at health care facility- Primary Routine general medical examination at a health care facility Prostate cancer (HCC) Malignant neoplasm of prostate Essential hypertension Unspecified essential hypertension Coronary artery disease involving rampart coronary artery of rampart heart without angina pectoris Pure hypercholesterolemia Weakness of both lower extremities Gait disorder Abnormality of gait [facility]* Diagnosis Malignant neoplasm metastatic to bone (HCC)- Primary Prostate cancer (HCC) Malignant neoplasm of prostate documented [facility]* Diagnosis Prostate cancer (HCC)- Primary Malignant neoplasm of prostate Screening for prostate cancer Special screening for malignant neoplasm of prostate documented in this encounter [facility]* Diagnosis Prostate cancer (HCC)- Primary Malignant neoplasm of prostate Malignant neoplasm metastatic to bone (HCC) [facility]* Diagnosis Prostate cancer (HCC) Malignant neoplasm of prostate documented [facility]* Diagnosis Bronchitis- Primary Bronchitis, not specified as acute or chronic Fever, unspecified fever cause documented in this encounter [facility]* Diagnosis Prostate cancer (HCC)- Primary Malignant neoplasm of prostate Malignant neoplasm metastatic to bone (HCC) documented in this encounter [facility]* Diagnosis Prostate cancer (HCC)- Primary Malignant neoplasm of prostate Malignant neoplasm metastatic to bone (HCC) documented [facility]* Diagnosis Bronchitis Bronchitis, not specified as acute or chronic documented in this encounter [facility]* Diagnosis 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 Adult failure to thrive 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 failure to thrive Pressure injury of right buttock, stage 3 (HCC) documented [facility] this encounter [facility]* Diagnosis Prostate cancer metastatic to multiple sites (HCC)- Primary Needs flu shot Need for prophylactic vaccination and inoculation against influenza History of renal stone Physical deconditioning Muscular wasting and disuse atrophy, not elsewhere classified Coronary artery disease involving rampart coronary artery of rampart heart without angina pectoris documented [facility]* Diagnosis Elevated prostate specific antigen (PSA) documented [facility]* Diagnosis Malignant neoplasm metastatic to [...] [facility]* Diagnosis Essential hypertension- Primary Unspecified essential hypertension 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) [facility]* Diagnosis Prostate cancer (CMS/HCC) (HCC)- Primary Malignant neoplasm of prostate 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 [facility]* Diagnosis Prostate cancer (CMS/HCC) (HCC)- Primary Malignant neoplasm of prostate 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 [facility]* Diagnosis Prostate cancer (CMS/HCC) (HCC)- [...] [facility] note* Diagnosis 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) [facility]* Diagnosis Prostate cancer (HCC) Malignant neoplasm of prostate [facility]* Diagnosis Routine general medical examination at health care facility- Primary Routine general medical examination at a [facility] care facility Weakness of both lower extremities 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 Prostate cancer (HCC)- Primary Malignant neoplasm of prostate Malignant neoplasm metastatic to bone (HCC) [facility] Diagnosis Prostate cancer (HCC)- Primary Malignant neoplasm of prostate Malignant neoplasm metastatic to bone (HCC) [facility] Diagnosis Prostate cancer (HCC)- Primary Malignant neoplasm of prostate Malignant neoplasm metastatic to bone (HCC) [facility] Diagnosis Prostate cancer (HCC) Malignant neoplasm of prostate Malignant neoplasm metastatic to bone (HCC) documented in this encounter [facility] Diagnosis Malignant neoplasm metastatic to bone (HCC)- Primary [facility] Diagnosis Malignant neoplasm metastatic to bone (HCC)- Primary documented in this encounter [facility] Diagnosis Malignant neoplasm metastatic to bone (HCC)- Primary Prostate cancer (HCC) Malignant neoplasm of prostate documented in this encounter [facility] Diagnosis Malignant neoplasm metastatic to bone (HCC)- Primary documented in this encounter [facility] Diagnosis Malignant neoplasm metastatic to bone (HCC) documented [facility]* Diagnosis Ingrown nail of great toe of right foot- Primary [facility] Diagnosis Malignant neoplasm metastatic to bone (HCC)- Primary documented in this encounter [facility] Diagnosis Malignant neoplasm of prostate (HCC)- Primary Malignant neoplasm of prostate Malignant neoplasm metastatic to bone (HCC) Prostate cancer (HCC) Malignant neoplasm of prostate [facility] Elevated prostate specific antigen (PSA) [facility] Consultation (Routine) - Pending Review Specialty Diagnoses / Procedures Referred By Lashon cleaning Referred To Contact Wound Care Diagnoses Pressure injury of right buttock, stage 3 (HCC) Procedures OK OFFICE/OUTPATIENT NEW HIGH MDM 60 MINUTES Mariam Velázquez APRN - [employer]ER [address] [place] [address] Sb Op Wnd Ostomy H[address] [place] [address] Referral ID Status Reason Start Date Expiration Date Visits Requested Visits Authorized [id number] Pending Review Specialty Services Required 06/21/2024 06/21/2025 1 1 [employer] for visit Narrative* Treatment Plan (Routine) Status Reason Specialty Diagnoses / Procedures Referred By Contact Referred To Contact Authorized Diagnoses Prostate cancer (HCC) Bone metastasis (HCC) Kristen Urias MD [address] [facility] [place] [address] [facility] [address] [place] [address] [email or web address] Work Phone: Rejkke for visit Narrative* Treatment Plan and Therapy Plan (Routine) - Authorized Specialty Diagnoses / Procedures Referred By Contac t Referred To Contact Diagnoses Prostate cancer (HCC) Bone metastasis (HCC) Kristen Urias MD [address] [place] [address], [address] [place] [address] [facility] [address] [place] [address] Referral ID Status Reason Start Date Expiration Date V isits Requested Visits Authorized [id number] Authorized 06/23/2021 06/23/2022 1 1 5to1 Phone: reason for visit Narrative* Treatment Plan and Therapy Plan (Routine) - Authorized Specialty Diagnoses / Procedures Referred By Contac t Referred To Contact Diagnoses Prostate cancer (HCC) Bone metastasis (HCC) Kristen Urias MD [address] [place] [address], [address] [place] [address] [facility] [address] [place] [address] Referral ID Status Reason Start Date Expiration Date V isits Requested Visits Authorized [id number] Authorized 04/17/2021 04/17/2022 1 1 [email or web address] Work Phone: reason for visit Narrative* Imaging (Routine) - Closed Specialty Diagnoses / Procedures Referred By Lashon t Referred To Contact Radiology Diagnoses Prostate cancer (HCC) Malignant neoplasm metastatic to bone (HCC) Procedures NM bone whole body Kristen Urias MD [address] [facility], [address] [place] [address] Phone: tel: fax: Referral ID Status Reason Start Date Expiration Date Visits Re quested Visits Authorized [id number] Closed 02/14/2025 02/14/2026 1 1 [facility] Summary Purpose Family History No Family History Records FoundNo Family History Records FoundNo Family History Records FoundNo Family History Records FoundNo Family History Records FoundNo Family History Records FoundNo Family History Records Found Advance Directives No Advanced Directives Records FoundDocuments on File Type Date Recorded Patient Newsstand Vendor Expl anation Advance Directives and Living Will Power of Department Chairperson Latest Code Status on File Code Status Date Activated Date Inactivated Comments Full Code 07/05/2019 11:19 AM Full Code 07/05/2019 5:47 AM 07/05/2019 11:16 AM Documents on File Type Date Recorded Patient Newsstand Vendor Expl anation Advance Directives and Living Will Power of Department Chairperson Latest Code Status on File Code Status Date Activated Date Inactivated Comments Full Code 07/05/2019 11:19 AM 07/06/2019 7:27 PM Full Code 07/05/2019 5:47 AM 07/05/2019 11:16 AM Latest Code Status on File Code Status Date Activated Date Inactivated Comments Full Code 07/05/2019 11:19 AM 07/06/2019 7:27 PM Documents on File Type Date Recorded Patient Newsstand Vendor Expl anation ACP-Advance Directive ACP-Power of Department Chairperson Documents on File Type Date Recorded Patient Newsstand Vendor Expl anation ACP-Advance Directive ACP-Power of Department Chairperson Date Activated Date Inactivated Comments 06/20/2024 1:35 PM 06/24/2024 4:50 PM Date Activated Date Inactivated Comments 06/20/2024 1:35 PM 06/24/2024 4:50 PM Reason for Referral Status Reason Specialty Diagnoses / Procedures Referred By Contact Referred To Contact Open Specialty Services Required Physical Therapy Diagnoses Arthritis of left knee Luisi, Elian A, PA [address] [place] [address] Scheduling Instructions Eval and treat: 3x per week for 6 weeks. Total knee protocol, quad strengthening, gait training, aggressive ROM, modalities PRN. Please develop home exercise plan. WBAT operative extremity Status Reason Specialty Diagnoses / Procedures Referre d By Contact Referred To Contact Closed Radiology Diagnoses Prostate cancer (HCC) Procedures NM BONE SCAN WHOLE BODY Jeramie Sarmiento MD [address] [facility] [address] [place] [phone] Status Reason Specialty Diagnoses / Procedures Referre d By Contact Referred To Contact Closed Radiology Diagnoses Prostate cancer (HCC) Procedures CT PELVIS W CONTRAST Jeramie Sarmiento MD [address] [place] [address] [address] [place] [address] Status Reason Specialty Diagnoses / Procedures Referred By Contact Referred To Contact Pending Review Radiology Diagnoses Prostate cancer (HCC) Procedures NM BONE SCAN WHOLE BODY Jeramie Sarmiento MD [address] [facility] [address] [place] [address] Status Reason Specialty Diagnoses / Procedures Referre d By Contact Referred To Contact Open Radiology Diagnoses Prostate cancer (HCC) Bone metastasis (HCC) Procedures NM Bone Scan Whole Body Kristen Urias MD [address] [facility], [address] [place] [address] Status Reason Specialty Diagnoses / Procedures Referre d By Contact Referred To Contact Closed Radiology Diagnoses Complex renal cyst Right renal stone Procedures CT ABDOMEN W WO CONTRAST Corazon Tee, DATA PROGRAMMER - WATERSHED TENDER [address] [facility] [address] [place] [address] Specialty Diagnoses / Procedures Referred By Contac t Referred To Contact Diagnoses Prostate cancer (HCC) Malignant neoplasm metastatic to bone (HCC) Kristen Urias MD [address] [facility] [address] [place] [address] Referral ID Status Reason Start Date Expiration Date V isits Requested Visits Authorized [id number] Pending Review 03/25/2023 09/21/2023 1 1 Specialty Diagnoses / Procedures Referred By Contac t Referred To Contact Physical Therapy Diagnoses 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, left Procedures OK OFFICE/OUTPATIENT NEW HIGH MDM 60-74 MINUTES Jeramie Ching MD [address] [facility] [address] [place] [address] Mikayla Wan, ATC [address] [place] [address] Referral ID Status Reason Start Date Expiration Date Visits Requested Visits Authorized [id number] Authorized Eval and Treat 04/07/2023 10/04/2023 99 99 Specialty Diagnoses / Procedures Referred By Contac t Referred To Contact Diagnoses Malignant neoplasm metastatic to bone (HCC) Prostate cancer (HCC) Lukas Duncan MD [address] [facility] [address] [place] [address] Referral ID Status Reason Start Date Expiration Date V isits Requested Visits Authorized [id number] Pending Review 09/21/2023 03/19/2024 1 1 Specialty Diagnoses / Procedures Referred By Contac t Referred To Contact Diagnoses Malignant neoplasm metastatic to bone (HCC) Prostate cancer (HCC) Kristen Urias MD [address] [place] [address], [address] [place] [address] Referral ID Status Reason Start Date Expiration Date V isits Requested Visits Authorized [id number] Pending Review 12/14/2023 12/08/2024 1 1 Specialty Diagnoses / Procedures Referred By Contac t Referred To Contact Diagnoses Prostate cancer (HCC) Kristen Urias MD [address] [place] [address], [address] [place] [address] Referral ID Status Reason Start Date Expiration Date Visits Re quested Visits Authorized [id number] Closed 1 1 Specialty Diagnoses / Procedures Referred By Contac t Referred To Contact Diagnoses Prostate cancer (CMS/HCC) (HCC) Bone metastasis (HCC) Kristen Urias MD [address] [facility], [address] [place] [address] Referral ID Status Reason Start Date Expiration Date V isits Requested Visits Authorized [id number] Pending Review 09/24/2022 03/23/2023 1 1 Referral ID Status Reason Start Date Expiration Date V isits Requested Visits Authorized [id number] Pending Review 12/23/2022 06/21/2023 1 1 Discharge Instructions * Discharge Instr - Lab* Sierra Santiago LPN - 07/06/2019 3:30 PM EDT Your physician has ordered skilled home care services for you. Your home care will be provided by: [facility] [phone] * Additional Instructions* Elian Trejo PA - 07/05/2019 [facility] [address] [facility] [address] Dept: [phone]: [phone] Kadeem Ambrosio Adult Hip and Knee Reconstruction [phone] Total/Partial Knee Discharge Instruction Physical Therapy Physical [...] is made of hard metal and plastic. [place] will create a slight separation of the [...] are taking narcotic pain medicine such as [place], Percocet, Hydrocodone, Oxycodone. Question: How long will [...] Agent's Name Healthcare Agent's Phone Number 06/28/19 8621 Yes, patient has an advance directive for healthcare treatment Living will No, copy requested from family -- -- -- Admitting Physician: No admitting provider for patient encounter. PCP: JERAMIE CHING MD Discharging Nurse: Discharging Hospital Unit/Room#: No information available for this encounter. 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 Calculus of kidney N20.0 Personal history of urinary calculi Z87.442 Nocturia R35.1 Hydrocele N43.3 Spermatocele of epididymis, single N43.41 Disorder of prostate N42.9 Essential hypertension I10 Pure hypercholesterolemia E78.00 Drug-induced polyneuropathy (HCC) G62.0 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) I25.118 [...] Weight: Wt Readings from Last 1 Encounters: 09/04/19 234 lb (106.1 kg) Mental Status: {IP PT MENTAL STATUS:} IV Access: { CHAU IV ACCESS:407165046} Nursing Mobility/ADLs: Walking {CHP DME ADLs:066337486} Transfer {CHP DME ADLs:190350572} Bathing {CHP DME ADLs:662309810} Dressing {CHP DME ADLs:298027528} Toileting {CHP DME ADLs:492307647} Feeding {CHP DME ADLs:264347349} Balance Assembler {CHP DME ADLs:796537992} Med Delivery { CHAU MED Delivery:516693779} Wound Care Documentation and Therapy: Elimination: Continence: Bowel: {YES / NO:} Bladder: {YES / NO:} Urinary Catheter: {Urinary Catheter:963489218} Colostomy/Ileostomy/Ileal Conduit: {YES / NO:} Date of Last BM: No intake or output data in the 24 hours ending 06/28/19 1014 No intake/output data recorded. Safety Concerns: { CHAU Safety Concerns:594538117} Impairments/Disabilities: { CHAU Impairments/Disabilities:039969212} Nutrition Therapy: Current Nutrition Therapy: { CHAU Diet List:306641596} Routes of Feeding: {CHP DME Other Feedings:793369457} Liquids: {Cash Applications Analyst liquid thickness:34511} Daily Fluid Restriction: {CHP DME Yes amt example:812759650} Last Modified Barium Swallow with Video (Video Swallowing Test): {Done Not Done Date:} Treatments at the Time of Hospital Discharge: Respiratory Treatments: Oxygen Therapy: {Therapy; copd oxygen:25358} Ventilator: { CC Vent List:373257987} Rehab Therapies: {THERAPEUTIC INTERVENTION:7342857294} Weight Bearing Status/Restrictions: { CC Weight Bearin} Other Medical Equipment (for information only, NOT a DME order): {EQUIPMENT:635886726} Other Treatments: Patient's personal belongings (please select all that are sent with patient): {P DME Belongings:933915837} RN SIGNATURE: {Esignature:378477997} CASE MANAGEMENT/SOCIAL WORK SECTION Inpatient Status Date: Readmission Risk Assessment Score: Readmission Risk Risk of Unplanned Readmission: 0 Discharging to Facility/ Agency Name: Address: Phone: Fax: Dialysis Facility (if applicable) Name: Address: Dialysis Schedule: Phone: Fax: Dynamics Ax Consultant/Animal Therapist signature: {Esignature:982069529} PHYSICIAN SECTION Prognosis: {Prognosis:4863933562} Condition at Discharge: {MH Patient Condition:040958438} Rehab Potential (if transferring to Rehab): {Prognosis:0268117297} Recommended Labs or Other Treatments After Discharge: Physician Certification: I certify the above information and transfer of Izabela London is necessary for the continuing treatment of the diagnosis listed and that he requires {Admit to AppropriateLevel of Care:73986} for {GREATER/LESS:919744367} 30 days. Update Admission H&P: {CHP DME Changes in HandP:271368223} PHYSICIAN SIGNATURE: {Esignature:603204955} * Additional Instructions* Luma Jo RN - [...] Everywhere. * TKR (Total Knee Replacement): Post-op (Equatorial [place]inean) * TKR (Total Knee Replacement): Pre-op ([place]) * Spinal Anesthesia: General Info ([place]) documented in this encounter History of Present Illness * Agnieszka Moore, ONLINE CONTENT COORDINATOR - 07/06/2019 11:28 AM EDT Physical Therapy Facility/Department: [facility] Daily Treatment Note NAME: Izabela [...] goal 2: Pt will complete supine<->sit at [facility] to improve bed mobility (met) Short term goal 3: Pt will complete sit<->stand with FWW at [facility] in preparation for ambulation (met) Short term goal 4: Pt will ambulate at least 100'x1 with FWW at [facility] to improve functional mobility(met) Short term goal 5: Pt will ascend/descend 1 stair without railing at [facility] for entrance into home (met) Patient [...] Minutes(1 gait, 1 ther ex ) Agnieszka Moore, ROHIT * Deepali Sweet OTA - 07/06/2019 11:00 AM EDT Occupational Therapy Facility/Department: [facility] Daily Treatment Note NAME: Izabela [...] Group Co-treatment Time In 929 Time Out 58 Minutes 28 Timed Code Treatment Minutes: 26 [...] MD - 07/06/2019 6:11 AM EDT [facility] [address] [facility] [address] Dept: [phone] Loc: [phone] Adult Hip and Knee Reconstruction Service Patient [...] 07/05/2019 3:17 PM EDT Physical Therapy Facility/Department: [facility] Initial Assessment NAME: Izabela London [...] Assistance: Independent(no device) Transfer Assistance: Independent Active Turning Machine Operator: Yes 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[employer] Objective Observation/Palpation Observation: L knee dressing and [...] Left in chair, Nurse notified OutComes Score [facility] Mobility Inpatient How much difficulty turning over [...] climbing 3-5 steps with a railing?: Total [facility] In[facility] Mobility Raw Score : 13 [facility] Inpatient T-Scale Score : 36.74 Mobility Inpatient CMS 0-100% Score: 64.91 Mobility Inpatient CMS G-Code Modifier : CL [facility] Score [facility] Inpatient Mobility Raw Score : 13 (07/05/19 1504) [facility] Inpatient T-Scale Score : 36.74 (07/05/19 1504) [...] Time Individual Concurrent Group Co-treatment Time In (3190-0970; 9128-4642) Time Out Minutes Tiffany Wilson, PT, DPT [...] Assistance: Independent(no device) Transfer Assistance: Independent Active Turning Machine Operator: Yes 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[employer] Objective Vision: Within Functional [...] Stand Pivot Transfers: Minimal assistance;2 Person assistance(at [facility]- pt required additional assistd/t residual effects of nerve block/spinal ) Sit to stand: Minimal assistance Stand to sit: Minimal assistance(assist for controlled descent) Transfer Comments: x1 at [facility]- pt required VC for proper BUE and [...] Daily Activity Raw Score: 21 (07/05/19 1440) [facility] Inpatient ADL T-Scale Score : 44.27 (07/05/19 144) ADL Inpatient CMS 0-100% Score: 32.79 (07/05/19 1440) ADL Inpatient CMS G-Code Modifier : CJ [...] 1334(+(14:46-14:53)) Time Out 1349 Minutes 15 Lamar Gann OT * Brooklyn Salomon RN - 07/05/2019 [...] and has decided to change to Zoladex. [employer] print out to patient. Reviewed possible side [...] section and content) DATE CREATED AUTHOR 04/19/2018 [facility] DATE CREATED AUTHOR AUTHOR'S ORGANIZ ATION 12/25/2020 [email or web address] [facility] DATE CREATED AUTHOR AUTHOR'S ORGANIZ ATION 12/11/2021 [email or web address] DATE CREATED AUTHOR AUTHOR'S ORGANIZ ATION 07/28/2022 [facility] DATE CREATED AUTHOR AUTHOR'S ORGANIZ ATION 07/09/2023 [facility] DATE CREATED AUTHOR AUTHOR'S ORGANIZ ATION 08/06/2025 [facility] DATE CREATED AUTHOR AUTHOR'S ORGANIZ ATION 08/17/2025 [facility] Source Comments (unrecognize d section and content) In the event this informatio n is protected by the Federal Confidentiality of Alcohol and Drug Abuse Patient Records regulations: The Federal rules restrict any use of the information to criminally investigate or prosecute any alcohol or drug abuse patient.[facility] the event this information is protected by the Federal Confidentiality of Alcohol and Drug Abuse Patient Records regulations: The Federal rules restrict any use of the information to criminally investigate or prosecute any alcohol or drug abuse patient.[facility] the event this information is protected by the Federal Confidentiality of Alcohol and Drug Abuse Patient Records regulations: The Federal rules restrict any use of the information to criminally investigate or prosecute any alcohol or drug abuse patient.[facility] the event this information is protected by the Federal Confidentiality of Alcohol and Drug Abuse Patient Records regulations: The Federal rules restrict any use of the information to criminally investigate or prosecute any alcohol or drug abuse patient.[facility] Clinic[facility] the event this information is protected by the Federal Confidentiality of Alcohol and Drug Abuse Patient Records regulations: The Federal rules restrict any use of the information to criminally investigate or prosecute any alcohol or drug abuse patient.[facility] Reason for Visit (unrecogniz ed section and content) Reason Comments OP Infusion Specialty Diagnoses / Procedures Referred By Contac t Referred To Contact Diagnoses Bone metastasis (HCC) Prostate cancer (CMS/HCC) (HCC) Kristen Urias MD [address] [facility] [place] [address] [facility] [address] [place] [address] Referral ID Status Reason Start Date Expiration Date Visits Re quested Visits Authorized [id number] Closed 08/18/2022 02/14/2023 1 1 Reason Comments Refill Request Status Reason Specialty Diagnoses / Procedures Referred By Contact Referred To Contact Authorized Diagnoses Prostate cancer (HCC) Jeramie Sarmiento MD [address] [place] [address] [facility] [address] [place] [address] Reason Comments Medicare Annual Wellness Visit Initial Reason Onset Date Comments Med Refill 02/15/2023 Reason Comments Follow-up Specialty Diagnoses / Procedures Referred By Contac t Referred To Contact Diagnoses Malignant neoplasm metastatic to bone (HCC) Prostate cancer (HCC) Kristen Urias MD [address] [facility] [address] [place] [address] [facility] [address] [place] [address] Referral ID Status Reason Start Date Expiration Date V isits Requested Visits Authorized [id number] Pending Review 08/18/2022 02/14/2023 1 1 Reason Onset Date Comments Med Refill 05/31/2023 tamsulosin (FLOM AX) 0.4 MG capsule Reason Onset Date Comments Referral 04/06/2023 Fax Reason Comments Appointment Reason Onset Date Comments Med Refill 11/23/2023 Reason Comments Med Refill Referral ID Status Reason Start Date Expiration Date V isits Requested Visits Authorized [id number] Pending Review 08/18/2022 02/14/2023 1 1 Reason Comments URI Started 2 1/2 weeks ago - test for covid and it was negative Taking mucinex Chest congestion, cannot lay flat or it rattles Diarrhea for 4 days - went away with immodium Had chemo last week Reason Onset Date Comments Refill Medication 2024 Reason Comments Medicare Annual Wellness Visit Mitchell t Reason Comments OP Infusion Specialty Diagnoses / Procedures Referred By Lashon t Referred To Contact Diagnoses Malignant neoplasm metastatic to bone (HCC) Prostate cancer (HCC) Kristen Urias MD [address] [facility] [address] [place] [phone] [facility] [address] [place] [address] Reason Onset Date Comments Med Refill 05/03/2024 Reason Onset Date Comments Abdominal Pain 05/31/2024 Reason Comments Nasal Congestion Symptoms started on Wednesday, he states he has nasal congestion, diarrhea, upset stomach. Fall Spouse had to call [phone] due to patient falling this morning, [...] triage Specialty Diagnoses / Procedures Referred By Lashon t Referred To Contact Diagnoses Failure to thrive in adult Procedures - Maria Antonia Baker MD [address] [place] [address] [facility] [address] [place] [address] Referral ID Status Reason Start Date Expiration Date Visits Re quested Visits Authorized [id number] 1 1 Reason Comments Hospital Follow-up Reason Onset Date Comments Other 07/27/2024 Missed Home visi t Specialty Diagnoses / Procedures [facility] Referred To Contact Diagnoses Malignant neoplasm metastatic to bone (HCC) Prostate cancer (HCC) Kristen Urias MD [address] [facility], [address] [place] [address] Phone: tel: fax: [facility] [address] [place] [address] Phone: tel: Reason Comments Follow-up Med Refill Lisinopril and carve dilol Reason Onset Date Comments Med Refill 11/26/2022 Reason Onset Date Comments Med Refill 12/11/2022 Specialty Diagnoses / Procedures Referred By [facility] Referred To Contact Diagnoses Malignant neoplasm metastatic to bone (HCC) Prostate cancer (HCC) Kristen Urias MD [address] [facility] [address] [place] [address] Phone: tel: fax: [facility] [address] [place] [address] Phone: tel: Reason Onset Date Comments Med Refill 12/14/2024 Reason Comments Follow-up Reason Onset Date Comments Med Refill 03/05/2025 Reason Comments Toe Pain Right Reason Onset Date Comments Toe Pain 07/02/2025 Reason Onset Date Comments Neck Pain 05/09/2025 Referral ID Status Reason Start Date Expiration Date V isits Requested Visits Authorized [id number] Pending Review 08/18/2022 02/14/2023 1 999 Telephone Encounter - Ignacia Tavarez (Angelita) - 07/29/2020 9:06 AM EDT Miscellaneous Notes (unrecog nized section and content) Patient's request for medication is as follows: Pending Prescriptions Disp Refills LISINOPRIL 10 MG TABLET 90 tablet 3 Sig: TAKE 1 TABLET BY MOUTH EVERY DAY [place]: Yes Patient was last seen on 05/21/2020 and has appointment on 05/22/2021. Prescription(s) as above. Please process accordingly. Ignacia Whipple) [place] documented in this encounter Care Teams (unrecognized sec tion and content) Dictaphone Technician Relationship Specialty Start Date End Date Jeramie Ching MD [address] [place] [phone] PCP - General Family Medicine 10/09/16 Dictaphone Technician Relationship Specialty Start Date End Date Jeramie Ching MD [address] [place] [phone] PCP - General Family Medicine 10/09/16 Dictaphone Technician Relationship Specialty Start Date End Date Jeramie Ching MD [address] [place] [phone] PCP - General Family Medicine 10/09/16 Dictaphone Technician Relationship Specialty Start Date End Date Jeramie Ching [address] [place] [phone] PCP - General Unspecified 11/10/16 Dictaphone Technician Relationship Specialty Start Date End Date Jeramie Ching MD [address] [place] [phone] PCP - General 10/25/18 Kristen Urias MD [address] [facility] [place], [place] [phone] Consulting Physician Oncology 08/19/22 Dictaphone Technician Relationship Specialty [place] [address] [place] [phone] PCP - General 10/25/18 Kristen Urias MD [address] [facility] [place], [place] [phone] Consulting Physician Oncology 08/19/22 Dictaphone Technician Relationship Specialty [place] [address] [place] [phone] PCP - General 10/25/18 Kristen Urias MD [address] [place] [address], [address] [place], [place] [phone] Consulting Physician Oncology 08/19/22 Dictaphone Technician Relationship Specialty [place] [address] [place] [address] [phone] PCP - General 10/25/18 Kristen Urias MD [address] [place] [address], [address] [place], [place] [phone] Consulting Physician Oncology 08/19/22 Dictaphone Technician Relationship Specialty Start Date End Date [place]amie Ching MD [address] [phone] PCP - General 10/25/18 Kristen Urias MD 161 [facility], [address] [place], [place] [phone] Consulting Physician Oncology 08/19/22 Dictaphone Technician Relationship Specialty [place] [address] [place] [phone] PCP - General 10/25/18 Kristen Urias MD 161 [facility], [address] [place], [place] [phone] Consulting Physician Oncology 08/19/22 Dictaphone Technician Relationship Specialty Start Date End Date Jeramie Ching MD [address] [phone] PCP - General 10/25/18 Kristen Urias MD [address] [place] [address], [address] [place], [place] [id number] Consulting Physician Oncology 08/19/22 Dictaphone Technician Relationship Specialty Start Date End Date Jearmie Ching MD [address] [place] [phone] PCP - General 10/25/18 Kristen Urias MD [address] [place] [address], [address] [place] [address] Consulting Physician Oncology 08/19/22 Dictaphone Technician Relationship Specialty Start Date End Date Jeramie Ching MD [address] [place] [phone] PCP - General 10/25/18 Kristen Urias MD [address] [place] [address], [address] [place], [place] [phone] Consulting Physician Oncology 08/19/22 Dictaphone Technician Relationship Specialty Start Date End Date Jeramie Ching MD [address] [place] [phone] PCP - General 10/25/18 Kristen Urias MD 161 [facility] [place], [address] [place], [place] [phone] Consulting Physician Oncology 08/19/22 Dictaphone Technician Relationship Specialty Start Date End [place]am[place]ing [place] [address] [phone] PCP - General Unspecified 11/10/16 Dictaphone Technician Relationship Specialty [place] [address] [place] [address] [phone] PCP - General Unspecified 11/10/16 Dictaphone Technician Relationship Specialty [place] [address] [place] [address] [phone] PCP - General 10/25/18 Kristen Urias MD 161 [facility] [place], [address] [place], [place] [phone] Consulting Physician Oncology 08/19/22 Dictaphone Technician Relationship Specialty Start Date End Date Jeramie [place]ing [place] [address] [phone] PCP - General 10/25/18 Kristen Urias MD 161 [facility], [address] [place], [place] [phone] Consulting Physician Oncology 08/19/22 Dictaphone Technician Relationship Specialty Start Date End Date Jeramie Ching MD 4055 [facility] [address] [place] [address] PCP - General 10/25/18 Kristen Urias MD [address] [place], [address] [place] [address] Consulting Physician Oncology 08/19/22 Lukas Duncan MD [address] [facility] [address] [place], [place] [phone] Consulting Physician Hematology and Oncology 09/14/23 Dictaphone Technician Relationship Specialty Start Date End Date Jeramie [place]ing MD [address] [phone] PCP - General Unspecified 11/10/16 Dictaphone Technician Relationship Specialty Start Date End Date Jeramie Ching MD 4055 [facility] [address] [place] [phone] PCP - General 10/25/18 Kristen Urias MD [address] [place], [address] [place] [address] Consulting Physician Oncology 08/19/22 Lukas Duncan MD [address] [facility] [address] [place], [place] [phone] Consulting Physician Hematology and Oncology 09/14/23 Dictaphone Technician Relationship Specialty Start Date End Date Jeramie Ching MD [address] [facility] [address] [place] [address] PCP - General 10/25/18 Kristen Urias MD [address] [place], [address] [place] [address] Consulting Physician Oncology 08/19/22 Lukas Duncan MD 161 [address] [facility] [address] [place] [address] Consulting Physician Hematology and Oncology 09/14/23 Dictaphone Technician Relationship Specialty Start Date End Date Jeramie Ching MD 4055 [facility] [address] [place] [phone] PCP - General 10/25/18 Kristen Urias MD [address] [place], [address] [place] [address] Consulting Physician Oncology 08/19/22 Lukas Duncan MD [address] [facility] [address] [place] [address] Consulting Physician Hematology and Oncology 09/14/23 Dictaphone Technician Relationship Specialty Start Date End Date Jeramie Ching MD 4055 [facility] [address] [place] [address] PCP - General 10/25/18 Kristen Urias MD [address] [place], [address] [place] [address] Consulting Physician Oncology 08/19/22 Lukas Duncan MD 161 [facility] [address] [place] [address] Consulting Physician Hematology and Oncology 09/14/23 Dictaphone Technician Relationship Specialty Start Date End Date Jeramie Ching MD 4[address] [facility] [address] [place] [address] PCP - General 10/25/18 Kristen Urias MD [address] [facility] [place], [address] [place] [address] Consulting Physician Oncology 08/19/22 Lukas Duncan MD [address] [facility] [address] [place] [address] Consulting Physician Hematology and Oncology 09/14/23 Dictaphone Technician Relationship Specialty Start Date End Date Jeramie Ching MD 4055 [facility] [address] [place] [phone] PCP - General 10/25/18 Kristen Urias MD [address] [facility] [place], [address] [place] [address] Consulting Physician Oncology 08/19/22 Lukas Duncan MD [address] [facility] [address] [place] [address] Consulting Physician Hematology and Oncology 09/14/23 Dictaphone Technician Relationship Specialty Start Date End Date Jeramie Ching MD 4055 [facility] [address] [place] [phone] PCP - General 10/25/18 Kristen Urias MD [address] [place], [address] [place] [address] Consulting Physician Oncology 08/19/22 Lukas Duncan MD [address] [place] [address] Consulting Physician Hematology and Oncology 09/14/23 Dictaphone Technician Relationship Specialty Start Date End Date Jeramie Ching MD 4[address] [facility] [address] [place] [phone] PCP - General 10/25/18 Kristen Urias MD [address] [place], [address] [place] [address] Consulting Physician Oncology 08/19/22 Lukas Duncan MD [address] [facility] [address] [place] [address] Consulting Physician Hematology and Oncology 09/14/23 Dictaphone Technician Relationship Specialty Start Date End Date Jeramie Ching MD 4055 [facility] [address] [place] [phone] PCP - General 10/25/18 Kristen Urias MD [address] [place], [address] [place] [address] Consulting Physician Oncology 08/19/22 Lukas Duncan MD [address] [place] [address] Consulting Physician Hematology and Oncology 09/14/23 Dictaphone Technician Relationship Specialty Start Date End Date Jeramie Ching MD [address] [facility] [address] [place] [phone] PCP - General 10/25/18 Kristen Urias MD [address], [address] [place] [address] Consulting Physician Oncology 08/19/22 Lukas Duncan MD [address] [facility] [address] [place] [address] Consulting Physician Hematology and Oncology 09/14/23 Dictaphone Technician Relationship Specialty Start Date End Date Jeramie Ching MD [address] [facility] [address] [place] [phone] PCP - General 10/25/18 Kristen Urias MD [address] [place], [address] [place] [address] Consulting Physician Oncology 08/19/22 Lukas Duncan MD [address] [place] [address] Consulting Physician Hematology and Oncology 09/14/23 Dictaphone Technician Relationship Specialty Start Date End Date Jeramie Ching MD [address] [facility] [address] [place] [phone] PCP - General 10/25/18 Kristen Urias MD [address] [place], [address] [place], [place] [phone] Consulting Physician Oncology 08/19/22 Lukas Duncan MD [address] [place] [address] Consulting Physician Hematology and Oncology 09/14/23 Regina Dorado, RN Nurse Navigator Oncology 03/10/24 Dictaphone Technician Relationship Specialty Start Date End Date Jeramie Ching MD [address] [place] [phone] PCP - General 10/25/18 Kristen Urias MD [address], [address] [place] [address] Consulting Physician Oncology 08/19/22 Lukas Duncan MD [address] [place] [address] Consulting Physician Hematology and Oncology 09/14/23 Regina Dorado, RN Nurse Navigator Oncology 03/10/24 Dictaphone Technician Relationship Specialty Start Date End Date Jeramie Ching MD [address] [facility] [address] [place] [phone] PCP - General 10/25/18 Kristen Urias MD [address], [address] [place] [address] Consulting Physician Oncology 08/19/22 Lukas Duncan MD [address] [place] [address] Consulting Physician Hematology and Oncology 09/14/23 Regina Dorado, RN Nurse Navigator Oncology 03/10/24 Dictaphone Technician Relationship Specialty Start Date End Date Jeramie Ching MD [address] [place] [address] PCP - General 10/25/18 Kristen Urias MD [address], [address] [place] [address] Consulting Physician Oncology 08/19/22 Lukas Duncan MD [address] [facility] [address] [place] [address] Consulting Physician Hematology and Oncology 09/14/23 Regina Dorado, RN Nurse Navigator Oncology 03/10/24 Dictaphone Technician Relationship Specialty Start Date End Date Jeramie Ching MD [address] [facility] [address] [place] [phone] PCP - General 10/25/18 Kristen Urias MD [address], [address] [place] [address] Consulting Physician Oncology 08/19/22 Lukas Duncan MD [address] [place] [address] Consulting Physician Hematology and Oncology 09/14/23 Regina Dorado, RN Nurse Navigator Oncology 03/10/24 Dictaphone Technician Relationship Specialty Start Date End Date Jeramie Ching MD [address] [facility] [address] [place] [phone] PCP - General 10/25/18 Kristen Urias MD [address], [address] [place] [phone] Consulting Physician Oncology 08/19/22 Lukas Duncan MD [address] [place] [address] Consulting Physician Hematology and Oncology 09/14/23 Regina Dorado, RN Nurse Navigator Oncology 03/10/24 Dictaphone Technician Relationship Specialty Start Date End Date Jeramie Ching MD [address] [facility] [address] [place] [phone] PCP - General 10/25/18 Kristen Urias MD [address], [address] [place] [address] Consulting Physician Oncology 08/19/22 Lukas Duncan MD [address] [place] [address] Consulting Physician Hematology and Oncology 09/14/23 Regina Dorado RN Nurse Navigator Oncology 03/10/24 Dictaphone Technician Relationship Specialty Start Date End Date Jeramie Ching MD [address] [facility] [address] [place] [phone] PCP - General 10/25/18 Kristen Urias MD [address], [address] [place] [address] Consulting Physician Oncology 08/19/22 Lukas Duncan MD [address] [place] [address] Consulting Physician Hematology and Oncology 09/14/23 Regina Dorado, RN Nurse Navigator Oncology 03/10/24 Dictaphone Technician Relationship Specialty Start Date End Date Jeramie Ching MD [address] [place] [phone] PCP - General 10/25/18 Kristen Urias MD [address], [address] [place] [address] Consulting Physician Oncology 08/19/22 Lukas Duncan MD [address] [place] [address] Consulting Physician Hematology and Oncology 09/14/23 Regina Dorado, RN Nurse Navigator Oncology 03/10/24 Dictaphone Technician Relationship Specialty Start Date End Date Jeramie Ching MD [address] [place] [phone] PCP - General 10/25/18 Kristen Urias MD [address], [address] [place], [place] [phone] Consulting Physician Oncology 08/19/22 Lukas Duncan MD [address] [place] [address] Consulting Physician Hematology and Oncology 09/14/23 Regina Doraod, RN Nurse Navigator Oncology 03/10/24 Dictaphone Technician Relationship Specialty Start Date End Date Jeramie Ching MD [address] [place] [phone] PCP - General 10/25/18 Kristen Urias MD [address], [address] [place], [place] [phone] Consulting Physician Oncology 08/19/22 Lukas Duncan MD [address] [place] [address] Consulting Physician Hematology and Oncology 09/14/23 Regina Dorado, RN Nurse Navigator Oncology 03/10/24 Dictaphone Technician Relationship Specialty Start Date End Date Jeramie Ching MD [address] [facility] [address] [place] [phone] PCP - General 10/25/18 Kristen Urias MD [address] [place], [address] [place] [address] Consulting Physician Oncology 08/19/22 Lukas Duncan MD [address] [place] [address] Consulting Physician Hematology and Oncology 09/14/23 Regina Dorado RN Nurse Navigator Oncology 03/10/24 Dictaphone Technician Relationship Specialty Start Date End Date Jeramie Ching MD [address] [facility] [address] [place] [phone] PCP - General 10/25/18 Kristen Urias MD [address], [address] [place] [address] Consulting Physician Oncology 08/19/22 Lukas Duncan MD [address] [place] [address] Consulting Physician Hematology and Oncology 09/14/23 Regina Dorado, RN Nurse Navigator Oncology 03/10/24 Dictaphone Technician Relationship Specialty Start Date End Date Jeramie Ching MD [address] [place] [address] PCP - General 10/25/18 Kristen Urias MD [address] [place], [address] [place] [address] Consulting Physician Oncology 08/19/22 Lukas Duncan MD [address] [facility] [address] [place] [address] Consulting Physician Hematology and Oncology 09/14/23 Regina Dorado RN Nurse Navigator Oncology 03/10/24 Dictaphone Technician Relationship Specialty Start Date End Date Jeramie Ching MD [address] [facility] [address] [place] [address] PCP - General 10/25/18 Kristen Urias MD [address] [place], [address] [place] [address] Consulting Physician Oncology 08/19/22 Lukas Duncan MD [address] [facility] [address] [place] [address] Consulting Physician Hematology and Oncology 09/14/23 Regina Dorado RN Nurse Navigator Oncology 03/10/24 Dictaphone Technician Relationship Specialty Start Date End Date Jeramie Ching MD [address] [place] [address] PCP - General 10/25/18 Kristen Urias MD [facility] [place], [address] [place], [place] [phone] Consulting Physician Oncology 08/19/22 Lukas Duncan MD [address] [place] [address] [address] [place], [place] [phone] Consulting Physician Hematology and Oncology 09/14/23 Regina Dorado, RN Nurse Navigator Oncology 03/10/24 Dictaphone Technician Relationship Specialty Start Date End Date Jeramie Ching MD [address] [phone] PCP - General 10/25/18 Kristen Urias MD 161 [facility], [address] [place], [place] [phone] Consulting Physician Oncology 08/19/22 Dictaphone Technician Relationship Specialty [place] [address] [place] [phone] PCP - General 10/25/18 Kristen Urias MD 161 [facility], [address] [place], [place] [phone] Consulting Physician Oncology 08/19/22 Dictaphone Technician Relationship Specialty Start Date End [place]am[place]ing [place] [address] [address] PCP - General 10/25/18 Kristen Urias MD 161 [facility], [address] [place], [place] [phone] Consulting Physician Oncology 08/19/22 Dictaphone Technician Relationship Specialty Start Date End Date Jeramie Ching MD [address] [address] PCP - General 10/25/18 Kristen Urias MD [address] [place], [address] [place] [address] Consulting Physician Oncology 08/19/22 Dictaphone Technician Relationship Specialty Start Date End Date Jeramie Ching MD [address] [facility] [address] [place] [address] PCP - General 10/25/18 Kristen Urias MD [address], [address] [place] [address] Consulting Physician Oncology 08/19/22 Lukas Duncan MD [address] [facility] [address] [place] [address] Consulting Physician Hematology and Oncology 09/14/23 Regina Dorado, RN Nurse Navigator Oncology 03/10/24 Dictaphone Technician Relationship Specialty Start Date End Date Jeramie Ching MD [address] [facility] [address] [place] [phone] PCP - General 10/25/18 Kristen Urias MD [address], [address] [place] [address] Consulting Physician Oncology 08/19/22 Lukas Duncan MD [address] [facility] [address] [place], [place] [phone] Consulting Physician Hematology and Oncology 09/14/23 Regina Dorado, RN Nurse Navigator Oncology 03/10/24 Dictaphone Technician Relationship Specialty Start Date End Date Jeramie Ching MD [address] [place] [address] PCP - General 10/25/18 Kristen Urias MD [address], [address] [place] [address] Consulting Physician Oncology 08/19/22 Lukas Duncan MD [address] [facility] [address] [place] [address] Consulting Physician Hematology and Oncology 09/14/23 Regina Dorado, RN Nurse Navigator Oncology 03/10/24 Dictaphone Technician Relationship Specialty Start Date End Date Jeramie Ching MD [address] [place] [address] PCP - General 10/25/18 Kristen Urias MD [address], [address] [place] [address] Consulting Physician Oncology 08/19/22 Lukas Duncan MD [address] [place] [address] Consulting Physician Hematology and Oncology 09/14/23 Regina Dorado, RN Nurse Navigator Oncology 03/10/24 Dictaphone Technician Relationship Specialty Start Date End Date Jeramie Ching MD [address] [place] [address] PCP - General 10/25/18 Kristen Urias MD [address], [address] [place], [place] [phone] Consulting Physician Oncology 08/19/22 Lukas Duncan MD [address] [place] [address] Consulting Physician Hematology and Oncology 09/14/23 Regina Dorado, RN Nurse Navigator Oncology 03/10/24 Dictaphone Technician Relationship Specialty Start Date End Date Jeramie Ching MD [address] [facility] [address] [place] [phone] PCP - General 10/25/18 Kristen Uiras MD [address] [place], [address] [place] [address] Consulting Physician Oncology 08/19/22 Lukas Duncan MD [address] [place] [address] Consulting Physician Hematology and Oncology 09/14/23 Regina Dorado RN Nurse Navigator Oncology 03/10/24 Dictaphone Technician Relationship Specialty Start Date End Date Jeramie Ching MD [address] [facility] [address] [place] [phone] PCP - General 10/25/18 Kristen Urias MD [address], [address] [place] [address] Consulting Physician Oncology 08/19/22 Lukas Duncan MD [address] [place] [address] Consulting Physician Hematology and Oncology 09/14/23 Regina Dorado, RN Nurse Navigator Oncology 03/10/24 Dictaphone Technician Relationship Specialty Start Date End Date Jeramie Ching MD [address] [facility] [address] [place] [address] PCP - General 10/25/18 Kristen Urias MD [address], [address] [place] [address] Consulting Physician Oncology 08/19/22 Lukas Duncan MD [address] [facility] [address] [place] [address] Consulting Physician Hematology and Oncology 09/14/23 Regina Dorado RN Nurse Navigator Oncology 03/10/24 Dictaphone Technician Relationship Specialty Start Date End Date Jeramie Ching MD [address] [facility] [address] [place] [address] PCP - General 10/25/18 Kristen Urias MD [address], [address] [place] [address] Consulting Physician Oncology 08/19/22 Lukas Duncan MD [address] [facility] [address] [place] [address] Consulting Physician Hematology and Oncology 09/14/23 Regina Dorado RN Nurse Navigator Oncology 03/10/24 Jose Still MD [address] [place] [address] Consulting Physician Endocrinology, Diabetes, & Metabolism 05/09/25 Dictaphone Technician Relationship Specialty Start Date End Date Jeramie Ching MD [address] [facility] [address] [place] [address] PCP - General 10/25/18 Kristen Urias MD [address] [facility], [address] [place] [address] Consulting Physician Oncology 08/19/22 Lukas Duncan MD [address] [facility] [address] [place] [address] Consulting Physician Hematology and Oncology 09/14/23 Regina Dorado, RN Nurse Navigator Oncology 03/10/24 Jose Still MD [address] [place], [place] [id number] Consulting Physician Endocrinology, Diabetes, & Metabolism 05/09/25 Dictaphone Technician Relationship Specialty Start Date End Date Jeramie Ching MD PCP - General 10/25/18 Kristen Urias MD [address] [facility] [address] [place] [address] Consulting Physician Oncology 08/19/22 Lukas Duncan MD [address] [facility] [address] [place] [address] Consulting Physician Hematology and Oncology 09/14/23 Regina Dorado, RN Nurse Navigator Oncology 03/10/24 Jose Still MD [address] [place], [place] [address] Consulting Physician Endocrinology, Diabetes, & Metabolism 05/09/25 Dictaphone Technician Relationship Specialty Start Date End Date Jeramie Ching MD 1 [facility] [address] [place] [address] PCP - General 10/25/18 Kristen Urias MD [address] [facility] [address] [place], [place] [address] Consulting Physician Oncology 08/19/22 Lukas Duncan MD [address] [facility] [address] [place], [place] [phone] Consulting Physician Hematology and Oncology 09/14/23 Regina Dorado, RN Nurse Navigator Oncology 03/10/24 Jose Still MD [address] [place], [place] [address] Consulting Physician Endocrinology, Diabetes, & Metabolism 05/09/25 Dictaphone Technician Relationship Specialty Start Date End Date Jeramie Ching MD 1 [facility] [address] [place] [address] PCP - General 10/25/18 Kristen Urias MD [address] [facility] [address] [place], [place] [address] Consulting Physician Oncology 08/19/22 Lukas Duncan MD [address] [facility] [address] [place], [place] [phone] Consulting Physician Hematology and Oncology 09/14/23 Regina Dorado, RN Nurse Navigator Oncology 03/10/24 Jose Still MD [address] [place] [address] Consulting Physician Endocrinology, Diabetes, & Metabolism 05/09/25 Dictaphone Technician Relationship Specialty Start Date End Date Jeramie Ching MD 1 [facility] [address] [place] [address] PCP - General 10/25/18 Kristen Urias MD [address] [facility], [address] [place], [place] [phone] Consulting Physician Oncology 08/19/22 Lukas Duncan MD [address] [facility] [address] [place] [address] Consulting Physician Hematology and Oncology 09/14/23 Regina Dorado, RN Nurse Navigator Oncology 03/10/24 Jose Still MD [address] [place], [place] [address] Consulting Physician Endocrinology, Diabetes, & Metabolism 05/09/25 Dictaphone Technician Relationship Specialty Start Date End Date Jeramie Ching MD [address] [facility] [address] [place] [address] PCP - General 10/25/18 Kristen Urias MD [address] [facility] [place], [place] [id number] Consulting Physician Oncology 08/19/22 Lukas Duncan MD [address] [facility] [address] [place], [place] [id number] Consulting Physician Hematology and Oncology 09/14/23 Regina Dorado, RN Nurse Navigator Oncology 03/10/24 Jose Still MD [address] [place] [address] Consulting Physician Endocrinology, Diabetes, & Metabolism 05/09/25 Dictaphone Technician Relationship Specialty Start Date End Date Jeramie Ching MD [address] [facility] [address] [place] [address] PCP - General 10/25/18 Kristen Urias MD [address] [place] [address] Consulting Physician Oncology 08/19/22 Lukas Duncan MD [address] [facility] [address] [place] [address] Consulting Physician Hematology and Oncology 09/14/23 Regina Dorado, RN Nurse Navigator Oncology 03/10/24 Jose Still MD [address] [place] [address] Consulting Physician Endocrinology, Diabetes, & Metabolism 05/09/25 Dictaphone Technician Relationship Specialty Start Date End Date Jeramie Ching MD [address] [facility] [address] [place] [address] PCP - General 10/25/18 Kristen Urias MD [address] [place] [address] Consulting Physician Oncology 08/19/22 Lukas Duncan MD [address] [facility] [address] [place], [place] [id number] Consulting Physician Hematology and Oncology 09/14/23 Regina Dorado RN Nurse Navigator Oncology 03/10/24 Jose Still MD [address] [place] [address] Consulting Physician Endocrinology, Diabetes, & Metabolism 05/09/25 Scheduled Active and Recently Administ ered Medications (unrecognized section and content) Medication Order 06/22/2024 06/23/2024 06/24/2024 ascorbic acid (Vitamin C) tablet 500 mg 500 mg, Oral, Daily, First dose on Wed06/21/24 at 1215 0939 (Given - Provider: Alisia Manzano, JORGE) 0807 (Given - Provider: Db Dowling, JORGE) [...] Dowling RN) 0933 (Given - Provider: Alisia Manzano, JORGE) carvedilol (Coreg) tablet 3.125 mg 3.125 mg, Oral, 2 times daily with meals, First dose on Wed06/20/24 at 1700 0938 (Given - Provider: Alisia Manzano, JORGE)1736 (Given - Provider: Alisia Manzano, JORGE) 0807 (Given - Provider: Db Dowling, JORGE)1714 (Given - Provider: Db Dowling, JORGE) 0933 (Given - Provider: Alisia Manzano, RN) cholecalciferol (Vitamin D-3) tablet 5,000 Units 5,000 Units, Oral, Daily, First dose on Wed06/20/24 at 1335 0938 (Given - Provider: Alisia Manzano RN) 0807 (Given - Provider: Db Dowling, JORGE) 0932 (Given - Provider: Alisia Manzano RN) [...] medication Verified by pharmacy, 06-20-24, Guille Cortez [facility] HAZARDOUS - Handle with care 2257 (Given - Provider: Jannie Rogel LPN) 5 (Given - Provider: Jannie Rogel LPN) lisinopril [...] at 1215 0939 (Given - Provider: Alisia Manzano, JORGE) 0807 (Given - Provider: Db Dowling RN) [...] BE BASED ON THE PRIMARY CLINICAL RECORDS. [facility]. provides no warranty or guarantee of the accuracy or completeness of information in this document.
[2025-08-17 19:04] VITALS: BP 150/75; PULSE 91; RESP 16; TEMP 36.6; O2SAT 99
== END 2025-08-17 19:04 | disposition home or self-care (01) ==
PROVIDERS: Emergency Provider Emergency Medicine; PCP Family Medicine; Visit Provider Emergency Medicine
DX: N39.0 Urinary tract infection, site not specified (principal); C61 Malignant neoplasm of prostate; Z92.21 Personal history of antineoplastic chemotherapy; I10 Essential (primary) hypertension; B96.4 Proteus (mirabilis) (morganii) as the cause of diseases classified elsewhere; E78.5 Hyperlipidemia, unspecified; N47.2 Paraphimosis; Z87.891 Personal history of nicotine dependence; R31.9 Hematuria, unspecified; I25.10 Atherosclerotic heart disease of native coronary artery without angina pectoris; Z79.82 Long term (current) use of aspirin; Z79.899 Other long term (current) drug therapy; Z96.652 Presence of left artificial knee joint; Z95.5 Presence of coronary angioplasty implant and graft
CPT/HCPCS: 51702; 99283; A4216

== ENCOUNTER → 2025-08-20 | Outpatient (CLI) | payer MEDICARE, SELFPAY | END | disposition home or self-care (01) | PROVIDERS: PCP Family Medicine; Referring Provider Urology; Visit Provider Urology | DX: Z01.810 Encounter for preprocedural cardiovascular examination (principal) | CPT/HCPCS: 93005 ==

== ENCOUNTER 2025-08-22 12:53 | Observation (INO) | payer MEDICARE, SELFPAY ==
--- NOTE | 2025-08-21 17:01 | PAT.ANESEVAL ---
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 When Was Last Pacemaker Check QUESTION #4 FULL TEXT: You/Your Family Experience fever (hyperthermia) with Anesthesia Last Oral Intake Last Oral intake: Last Oral Intake NPO since Meds taken in AM with sips of water? Meds patient instructed to take am of surgery PONV PONV - corporate travel manager: PONV - corporate travel manager Female No 08/20/25 15:33 HX of Motion Sickness No 08/20/25 15:33 HX of N/V After Surgery No 08/20/25 15:33 Non-Smoker Yes 08/20/25 15:33 Duration of Surgery greater Yes 08/20/25 15:33 than 60 minutes Number of Risk Factors 2 08/20/25 15:33 PONV Score Moderate Risk 08/20/25 15:33 Height & Weight Height & Weight: Anesthesia: Height & Weight Height 5 ft 11 in 08/17/25 16:31 Respiratory Assessment Respiratory Assessment - corporate travel manager: Respiratory Tract Infection Hx - corporate travel manager Hx Respiratory Tract Infection No 08/20/25 15:33 STOP Sleep Apnea STOP Sleep Apnea - corporate travel manager: STOP Sleep Apnea - corporate travel manager Hx Hypertension Yes: PER PT, CONTROLLED ON 08/20/25 15:33 MEDS Hx Sleep Apnea No 08/20/25 15:33 CPAP BIPAP Do you snore loudly (louder No 08/20/25 15:33 than talking or can be heard Do you often feel tired/ No 08/20/25 15:33 fatigued/ sleepy during daytime? Has anyone observed you stop No 08/20/25 15:33 breathing during sleep? STOP Results Negative 08/20/25 15:33 QUESTION #5 FULL TEXT : Do you snore loudly (louder than talking or can be heard through closed doors)? 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 Specify any problems Hx of Preganancy in last 3 N/A 08/20/25 15:33 Months Nurse Filling Out Transfusion MGRIFFITH 08/20/25 15:33 & Questions: Date: 08/20/25 08/20/25 15:33 Time: 15:36 08/20/25 15:33 Patient unable to answer at this time (ie. confused, unrespo /Reproduction History /Reproductive History - corporate travel manager: /Reproductive Hx- corporate travel manager Hx Now Gestational Age (in weeks): EDC: Hx Hx [facility] History (Updated 08/20/25 @ 15:45 by Olinda Bueno) Wears glasses Walker as ambulation aid History of kidney stones Easy bruising Dietary restriction History of neuropathy Former smoker Shortness of breath on exertion History of edema History of echocardiogram History of stress test Cardiology follow-up encounter Coronary artery disease Hyperlipidemia, unspecified Essential (primary) hypertension Burkitt lymphoma Prostate cancer Dehydration Antibiotic-associated diarrhea Stage III pressure ulcer of sacral region Weakness Debility Home Medications ?Medication ?Instructions ?Recorded ?Last Taken ?Type aspirin 81 mg capsule 81 mg PO DAILY Heart 06/24/24 08/20/25 History Held on 08/20/25. Instructions: ON HOLD FOR SURGERY 08/22/25 calcium 500 mg (as 1 tab PO DAILY supplement 06/24/24 06/24/24 09:30 History carbonate)-vitamin D3 5 mcg (200 unit) tablet (Oyster Shell Calcium-Vitamin D3) carvedilol 3.125 mg tablet 3.125 mg PO BID BP 06/24/24 07/06/24 History cholecalciferol (vitamin D3) 125 125 mcg PO DAILY SUPPLEMENT 06/24/24 Unknown History mcg (5,000 unit) capsule lisinopril 10 mg tablet 10 mg PO DAILY BP 06/24/24 07/06/24 History simvastatin 20 mg tablet 20 mg PO QPM Cholesterol 06/24/24 Unknown History zinc sulfate 50 mg zinc (220 mg) 50 mg PO DAILY Supplement 06/24/24 06/24/24 09:35 History capsule (Orazinc) tamsulosin 0.4 mg capsule 0.4 mg PO BID URINE FLOW 07/06/24 Unknown History levofloxacin 750 mg tablet 750 mg PO DAILY ANTIBIOTIC 7 days 08/15/25 Unknown Rx #7 tabs ondansetron 4 mg disintegrating 4 mg PO Q8H PRN PRN Nausea #10 tabs 08/15/25 Unknown Rx tablet abiraterone 250 mg tablet 1,000 mg PO DAILY CHEMO 08/20/25 Unknown History Allergy/AdvReac Type Severity Reaction Status Date / Time amoxicillin Allergy Intermediate Diarrhea Verified 08/20/25 15:27 Family History Father , at 77. Colon cancer Surgical History (Updated 08/20/25 @ 15:33 by Olinda Bueno) History of foot surgery History of total left knee replacement History of tonsillectomy and adenoidectomy History of arteriovenous graft History of cataract surgery History of coronary artery stent placement History of colonoscopy History of bone graft History of back surgery Social History household members: spouse Smoking Status: Former smoker alcohol intake: current details: Glass of wine per week. substance use type: does not use Audit: Pertinent Findings Pertinent Findings EKG Perinent findings: EKG August 20, 2025. Atrial fibrillation. Incomplete right bundle branch block. Left anterior fascicular block. Consult pertinent findings: Cardiology note from [facility] 12/06/2021. 81-year-old gentleman with history of coronary artery disease and prior stent to the left anterior descending in 2010. Most recent ischemic evaluation was completed October 2015. A Lexiscan Cardiolite stress test was normal with an ejection fraction of 67%. He also has mild carotid artery disease, hypertension, and dyslipidemia. Presents the office for routine follow-up up Recommendation Anesthesia Recommendation Anesthesia recommendation: OPTIMIZED for anesthesia
[2025-08-22] VITALS (15 sets, daily range): BP systolic 93–145; BP diastolic 63–100; PULSE 73–93; RESP 16–18; TEMP 36.1–36.6; O2SAT 97–99; BMI 35.5
--- NOTE | 2025-08-22 09:45 | PCM.PRE.AN2 ---
ASA Classification* ASA Classification ASA Classification: 3 Assessment & Plan Anesthesia* Anesthesia Assessment Anesthesia Assessment: Discussed sedation and/or anesthesia options, risks, benefits, and alternatives with patient/parents/legal guardian/POA. Questions invited. The patient/parents/legal guardian/POA seems to understand and agrees to proceed with anesthesia plan. Reviewed the physical assessment, medical history, allergy history and patient home medications list prior to surgery/procedure/anesthetic and documented any changes. Performed airway and anesthesia risk assessments. Anesthesia Type Anesthesia Type: General Anesthesia Focused Assessment* Airway Assessment Mouth opens: >3 cm Mallampati Score: II Labs Anesthesia Preop lab: CBC WBC, (4.4-11.0) 16.3 K/mm3 H 08/15/25, 22: RBC, (4.6-6.2) 4.21 M/mm3 L 08/15/25, 22:05 Hgb, (13.0-16.5) 14.0 g/dL 08/15/25, : Hct, (40-54) 42.3 % 08/15/25, :05 Plt Count, (150-450) 225 K/mm3 08/15/25, 22:05 CHEMISTRY Potassium, (3.3-5.1) 3.7 mmol/L 08/15/25, 22:05 Sodium, (133-145) 142 mmol/L 08/15/25, 22:05 BUN, (4-19) 17 mg/dL 08/15/25, 22:05 Creatinine, (0.70-1.20) 0.65 mg/dL L 08/15/25, :05 Glucose, (70-99) 140 mg/dL H 08/15/25, 22:05 COAG Pre-Assessment Diagnosis/Proposed Procedure Planned Operative Procedure(s): (N/A) Cysto,Transurethral Resection Prostate Anesthesia History Anesthesia History - tray delivery aide: Anesthesia History - tray delivery aide Hx Hospitalization No 08/20/25 15:33 Any Problems With Anesthesia No 08/20/25 15:33 Cholinesterase deficiency No 08/20/25 15:33 You/Your Family Experience No 08/20/25 15:33 fever (hyperthermia) with Relationship Recent Exposure to Contagious No 07/06/24 14:34 Disease Does patient have nerve No 08/20/25 15:33 stimulator Patient instructed to have device shut off --Does patient have Pacemaker or ICD? When Was Last Pacemaker Check QUESTION #4 FULL TEXT: You/Your Family Experience fever (hyperthermia) with Anesthesia Last Oral Intake Last Oral intake: Last Oral Intake NPO since Meds taken in AM with sips of water? Meds patient instructed to take am of surgery PONV PONV - tray delivery aide: PONV - tray delivery aide Female No 08/20/25 15:33 HX of Motion Sickness No 08/20/25 15:33 HX of N/V After Surgery No 08/20/25 15:33 Non-Smoker Yes 08/20/25 15:33 Duration of Surgery greater Yes 08/20/25 15:33 than 60 minutes Number of Risk Factors 2 08/20/25 15:33 PONV Score Moderate Risk 08/20/25 15:33 Height & Weight Height & Weight: Anesthesia: Height & Weight Height 5 ft 11 in 08/17/25 16:31 Respiratory Assessment Respiratory Assessment - tray delivery aide: Respiratory Tract Infection Hx - tray delivery aide Hx Respiratory Tract Infection No 08/20/25 15:33 STOP Sleep Apnea STOP Sleep Apnea - tray delivery aide: STOP Sleep Apnea - tray delivery aide Hx Hypertension Yes: PER PT, CONTROLLED ON 08/20/25 15:33 MEDS Hx Sleep Apnea No 08/20/25 15:33 CPAP BIPAP Do you snore loudly (louder No 08/20/25 15:33 than talking or can be heard Do you often feel tired/ No 08/20/25 15:33 fatigued/ sleepy during daytime? Has anyone observed you stop No 08/20/25 15:33 breathing during sleep? STOP Results Negative 08/20/25 15:33 QUESTION #5 FULL TEXT : Do you snore loudly (louder than talking or can be heard through closed doors)? 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 Specify any problems Hx of Preganancy in last 3 N/A 08/20/25 15:33 Months Nurse Filling Out Transfusion MGRIFFITH 08/20/25 15:33 & Questions: Date: 08/20/25 08/20/25 15:33 Time: 15:36 08/20/25 15:33 Patient unable to answer at this time (ie. confused, unrespo /Reproduction History /Reproductive History - tray delivery aide: /Reproductive Hx- tray delivery aide Hx Now Gestational Age (in weeks): EDC: Hx Hx Para Hx Section SAB Active Medications Active Medications: Current Medications Generic Name Dose Route Start Last Admin Trade Name Freq PRN Reason Stop Dose Admin Lactated Ringer's 1,000 mls @ 15 mls/hr 08/22/25 09:15 IV .Q48H MARCIAL PFSH Medical History Wears glasses Walker as ambulation aid History of kidney stones Easy bruising Dietary restriction History of neuropathy Former smoker Shortness of breath on exertion History of edema History of echocardiogram History of stress test Cardiology follow-up encounter Coronary artery disease Hyperlipidemia, unspecified Essential (primary) hypertension Burkitt lymphoma Prostate cancer Dehydration Antibiotic-associated diarrhea Stage III pressure ulcer of sacral region Weakness Debility Home Medications ?Medication ?Instructions ?Recorded ?Last Taken ?Type aspirin 81 mg capsule 81 mg PO DAILY Heart 06/24/24 08/20/25 History Held on 08/20/25. Instructions: ON HOLD FOR SURGERY 08/22/25 calcium 500 mg (as 1 tab PO DAILY supplement 06/24/24 08/21/25 History carbonate)-vitamin D3 5 mcg (200 unit) tablet (Oyster Shell Calcium-Vitamin D3) carvedilol 3.125 mg tablet 3.125 mg PO BID BP 06/24/24 08/21/25 07:00 History cholecalciferol (vitamin D3) 125 125 mcg PO DAILY SUPPLEMENT 06/24/24 08/21/25 History mcg (5,000 unit) capsule lisinopril 10 mg tablet 10 mg PO DAILY BP 06/24/24 08/22/25 History simvastatin 20 mg tablet 20 mg PO QPM Cholesterol 06/24/24 08/21/25 History tamsulosin 0.4 mg capsule 0.4 mg PO BID URINE FLOW 07/06/24 08/21/25 History ondansetron 4 mg disintegrating 4 mg PO Q8H PRN PRN Nausea #10 tabs 08/15/25 Unknown Rx tablet abiraterone 250 mg tablet 1,000 mg PO DAILY CHEMO 08/20/25 08/21/25 History Allergy/AdvReac Type Severity Reaction Status Date / Time amoxicillin Allergy Intermediate Diarrhea Verified 08/22/25 09:30 Family History Father , at 77. Colon cancer Surgical History History of foot surgery History of total left knee replacement History of tonsillectomy and adenoidectomy History of arteriovenous graft History of cataract surgery History of coronary artery stent placement History of colonoscopy History of bone graft History of back surgery Social History household members: spouse Smoking Status: Former smoker alcohol intake: current details: Glass of wine per week. substance use type: does not use Review of Systems (Anesthesia) ROS Narrative System reviewed and no additional complaints, except as documented.
[2025-08-22] MEDS: Lactated Ringers 1,000 ML 15 ML IV (09:48)
[2025-08-22 09:57] LABS: Prothrombin Time (Protime)PT. 13.1 SECONDS (11.7-14.9)
[2025-08-22 09:58] LABS: Partial Thromboplast Time 28.0 Seconds (24.1-36.2)
[2025-08-22 10:37] LABS: AST(SGOT) 54 U/L (<=37); Alanine Aminotransfer ALT/SGPT 77 U/L (<=46); Albumin, Serum 3.4 g/dL (3.4-4.8); Alkaline Phosphatase 67 U/L (40-129); Bilirubin, Direct 0.41 mg/dL (0.00-0.30); Globulin 2.8 g/dL (2.2-4.2)
--- NOTE | 2025-08-22 11:15 | BLA_PTH ---
PATIENT: IZABELA LONDON LOC: MS3 U#:[id number] AGE/SX: 85/M ROOM: LA317 RE08/22/[address]: Dr. Shalom Hussein MD : 1940 BED: 1 DIS: 08/23/2025 SPEC #: [id number] RECD: 08/22/25 13:51 STATUS: SANTIAGO DOLL #: [id number] WALESKA: 08/22/25 11:[address]: Shalom Hussein DEPT: SURGICAL PATHOLOGY RECD BY: Nikita Alexander ENTERED: 08/22/25 15:57 SP TYPE: BLADDER BX OTHR DR: Dr. Jeramie Cervantes MD Tissues: A - Urinary bladder, NOS Procedures: Immunohistochemical Stains Surgery Specimen Level V IHC Stain ADDITIONAL HEADER OPERATION: Cysto, transurethral resection bladder resection PRE-OP DIAGNOSIS: Benign prostatic hyperplasia, malignant neoplasm of prostate TISSUE SUBMITTED: A- Bladder tumor MICROSCOPIC DIAGNOSIS A. Bladder, transurethral resection of bladder tumor: - Invasive adenocarcinoma with mucinous features, consistent with metastatic prostate carcinoma - see note. - IHC positive for NKX3.1, PSAP, AMACR; negative for uroplakin, LORAINE-3. Note: The stated history of prostate carcinoma is noted. No prior pathology is available for review. MICROSCOPIC DESCRIPTION Slides are reviewed. All matched controls reacted appropriately. These tests were developed and their performance characteristics determined by [facility]. They may not have been cleared or approved by the U.S. Food and Drug Administration. The FDA has determined that such clearance or approval is not necessary. The above immunohistochemical markers and/or special?stains have been reviewed by the Pathologist. All controls show appropriate reactivity.(NKX3.1) ?All immunohistochemistry, in situ hybridization, and histochemical tests were developed by and are performed at the [facility], [address] [place] [address]. All Immunofluorescent (IF)?tests were developed by and are performed at the [facility], [address] [place] [address] ?[id number]. All tests reported here, except those addressing HER2 overexpression as a predictive marker, have not been cleared by or approved by the US Food and Drug Administration (FDA). The laboratory is regulated under CLIA as qualified to perform high-complexity testing. The tests are used for clinical purposes. They should not be regarded as investigational or for research. GROSS DESCRIPTION A. Received in formalin labeled with the patient's name and date of . Designated as bladder tumor is an 8.5 x 7.3 x 1.5 cm aggregate of pink-red to green-serrano irregular tissue fragments, clotted blood and mucoid material. Entirely submitted in 21 cassettes. PR 08/22/2025 CPT:13827,24882,[id number]
[2025-08-22] MEDS: Cefazolin 1 GM/5 ML Vial 2 GM IV (12:00)
[2025-08-22] MEDS: Lidocaine 1% (5 ml sdv) 5 ML Vial IV (12:03)
[2025-08-22] MEDS: fentaNYL 100 MCG/2 ML Ampul IV (12:49)
--- NOTE | 2025-08-22 12:56 | DCINST_ITS ---
Discharge Instructions DC O2, CPAP, BIPAP needs Home O2 Discharge instructions: No Dressing / Incision Discharge Activity: Return to Normal Activity and May Not Drive (while taking narcotic pain medications.) Dressing / Incision Call your doctor if you observe: Fever of 101 or Higher Follow Up Care Please Follow Up With: Shalom Hussein MD When: Call [phone] for an appointment Test Results: Test results from this visit will be discussed in further detail at your follow- up appointment, if applicable. Discharge Plan Admission Primary Reason for Your Visit: bladder tumor Attending Provider: Shalom Hussein Primary Care Provider: Jeramie Cervantes Instructions Print Language: Ethiopian Discharge Orders/Prescriptions Prescriptions: Continued calcium carbonate-vitamin D3 [Oyster Shell Calcium-Vit D3] 500 mg-5 mcg (200 unit) tablet 1 tab PO DAILY carvedilol 3.125 mg tablet 3.125 mg PO BID cholecalciferol (vitamin D3) 125 mcg (5,000 unit) capsule 125 mcg PO DAILY lisinopril 10 mg tablet 10 mg PO DAILY simvastatin 20 mg tablet 20 mg PO QPM tamsulosin 0.4 mg Capsule 0.4 mg PO BID ondansetron 4 mg tablet,disintegrating 4 mg PO Q8H PRN PRN (Reason: Nausea) Qty: 10 0RF abiraterone 250 mg tablet 1,000 mg PO DAILY Held aspirin 81 mg capsule 81 mg PO DAILY Hold Instructions: Resume on 09/05/25. Referrals / Follow Up: Jeramie Cervantes MD [Primary Care Provider, Family Practice] Shalom Hussein MD [Med Staff - Active Staff, Urology] Disposition Disposition (needs filled in before D/C Order can be placed): Home, Self Care
--- NOTE | 2025-08-22 12:56 | OP.PCM_ITS ---
Operative Report (Standard) Operative Information Date of Procedure: 08/22/25 Pre-Operative Diagnosis: Bleeding mass at the bladder neck Post-Operative Diagnosis: The same large bladder mass resected Surgery/Procedure Performed: Transurethral resection of a large bladder mass greater than 5 cm in size total size 6cm plate glass installer: No Type of Anesthesia: General RN Documented Start/Stop Times: Operation Date: 08/22/25 11:15 Case Time Into Pre-Op 08/22/25 09:14 Anesthesia Start 08/22/25 11:56 Into Room 08/22/25 11:56 Out of Pre-Op 08/22/25 11:59 Procedure Start 08/22/25 12:11 Procedure Start Time: 12:11 Procedure Stop Time: 12:57 Select all DRAINS/GRAFTS/IMPLANTS that apply: Drains Drain details: 22 Ivorian three-way Freitas Estimated Blood Loss: 20 cc Specimen collected: Yes Description of specimen(s) removed: Invasive bladder mass Description of surgery: This is a an 85-year-old male history of prostate cancer and presented to my office with gross hematuria cystoscopy was done in the office saw mass of the bladder neck thought perhaps he was having obstruction so we set him up for a TURP. Patient was taken back to the operating room after smooth duction of anesthesia I went in the bladder with a 21 Ivorian cystourethroscope to do an evaluation and immediately went inside to get the bladder saw a very large mass in the bladder that was causing obstruction at the bladder neck very large mass coming from the roof of the bladder and the bladder neck and the left lateral wall of the bladder this is a large invasive looking mass I then switched over to the resectoscope and then resected this mass at the bladder neck resected all the way up to the lateral wall and resected anterior as follows far as possible it appeared to be an invasive cancer of the left ureter orifice was not involved the right ureteral orifice was not able to be found within this mass looks like it could be involved the right ureter orifice could be involved after resecting the tumor completely then I cauterized extensively there was a little bit of anterior tissue that could not reach the left this alone I cauterized obtain hemostasis we then put in a 22 Ivorian three-way catheter continuous bladder irrigation is taken back to PACU in good good condition will be kept overnight for irrigation we will do a voiding trial tomorrow morning I suspect this could be some sort of malignancy that is invading the bladder could need to be prostate cancer or could be bladder cancer. Surgical Findings: Appears to have invasive bladder mass Complications Complications: No Admit VTE Documentation VTE Present on Admission: No VTE Mechan Device Prophylaxis: SCD's VTE Pharm Prophylaxis ordered?: No
--- NOTE | 2025-08-22 13:07 | PCM.POST.ANE ---
Anesthesia: Postop Eval I Current Vital Signs Temperature: 97.3 F Pulse Rate: 78 Blood Pressure: 135/88 Respiratory Rate: 16 Pulse Ox: 97 Oxygen Delivery Method: Room Air Assessment Airway patent: Yes Spontaneous unlabored respirations: Yes Mental status: Awake and Calm nausea: No Vomiting: No Anesthesia Complication: No Fluid Hydration Crystalloid volume administer (ml): 700 Total IV fluid infused: 700 Progress Note Anesthesia document: Postop Eval 1 completed: Yes
--- NOTE | 2025-08-22 14:08 | POSTOPAN2_ITS ---
Anesthesia Postop Eval I Sum Postop Eval Completion status Anesthesia document: Postop Eval 1 completed: Yes Anesthesia Postop Eval I Summary Anesthesia Postop Eval I Summary: Anesthesia Postop Eval I: Assessment Summary Airway patent Yes 08/22/25 13:08 BACTERIOLOGIST [email or web address] Spontaneous unlabored Yes 08/22/25 13:08 BACTERIOLOGIST [email or web address].[email or web address] respirations Mental status Awake,Calm 08/22/25 13:08 BACTERIOLOGIST DAIRY.[email or web address] nausea No 08/22/25 13:08 BACTERIOLOGIST DAIRY.[email or web address] Vomiting No 08/22/25 13:08 BACTERIOLOGIST [email or web address].[email or web address] Anesthesia Postop Eval I: Fluid Summary Crystalloid volume administer 700 08/22/25 13:08 BACTERIOLOGIST [email or web address].GDOTT (ml) Colloids volume administered ( ml) Blood Product volume administered (ml) Total IV fluid infused 700 08/22/25 13:08 BACTERIOLOGIST DAIRY.GDOTT Anesthesia Postop Eval I: Summary Notes Anesthesia Complication No 08/22/25 13:08 BACTERIOLOGIST [email or web address].[email or web address] Anesthesia Complication Comment: Post-operative progress note Anesthesia: Postop Eval II Evaluation Mental status: Awake Pain Level: 0 nausea: No Vomiting: No
--- NOTE | 2025-08-22 14:08 | PCM.POSTANE2 ---
Anesthesia Postop Eval I Sum Postop Eval Completion status Anesthesia document: Postop Eval 1 completed: Yes Anesthesia Postop Eval I Summary Anesthesia Postop Eval I Summary: Anesthesia Postop Eval I: Assessment Summary Airway patent Yes 08/22/25 13:08 SAND CONTROL WORKER.[email or web address] Spontaneous unlabored Yes 08/22/25 13:08 SAND CONTROL WORKER.GDOTT respirations Mental status Awake,Calm 08/22/25 13:08 SAND CONTROL WORKER.GDOTT nausea No 08/22/25 13:08 SAND CONTROL WORKER.GDOTT Vomiting No 08/22/25 13:08 SAND CONTROL WORKER.GDOTT Anesthesia Postop Eval I: Fluid Summary Crystalloid volume administer 700 08/22/25 13:08 SAND CONTROL WORKER.GDOTT (ml) Colloids volume administered ( ml) Blood Product volume administered (ml) Total IV fluid infused 700 08/22/25 13:08 SAND CONTROL WORKER.GDOTT Anesthesia Postop Eval I: Summary Notes Anesthesia Complication No 08/22/25 13:08 SAND CONTROL WORKER.GDOTT Anesthesia Complication Comment: Post-operative progress note Anesthesia: Postop Eval II Evaluation Mental status: Awake Pain Level: 0 nausea: No Vomiting: No
[2025-08-22] MEDS: 0.9% Normal Saline (1000mL) 1,000 ML 125 ML IV ×2 (15:09→22:57)
[2025-08-22] MEDS: CLARIFY ORDER NOTE (15:09)
[2025-08-22] MEDS: 0.9% Saline Lock 10 ML Syringe IV (16:05)
[2025-08-23 03:37] VITALS: BP 104/63; PULSE 87; RESP 16; TEMP 36.9; O2SAT 96
[2025-08-23 07:00] VITALS: RESP 16
[2025-08-23] MEDS: 0.9% Normal Saline (1000mL) 1,000 ML 125 ML IV (08:01)
--- NOTE | 2025-08-23 08:06 | NURSING ---
pt a&ox3. RA. No distress noted. SN and instructor bedside and had just DC'ed benitez. pt denies pain at this time. call light within reach. VOLUNTEER SERVICES DIRECTOR documentation being reviewed.
[2025-08-23 09:00] VITALS: BP 110/58; PULSE 80; RESP 17; TEMP 36.9; O2SAT 97
[2025-08-23 09:01] VITALS: BP 110/58; PULSE 80; RESP 17; TEMP 36.8; O2SAT 95
--- NOTE | 2025-08-23 12:25 | NURSING ---
pt requesting quietly eating lunch. no distress noted. voiding clear pink tinged melina. denies pain at present. denies all f urther needs call light within reach.
[2025-08-23 13:03] VITALS: BP 134/70; PULSE 80; RESP 16; TEMP 36.8; O2SAT 95
--- NOTE | 2025-08-23 13:23 | PHA.DC.MR.R ---
Pharmacy [place] Med Reconciliation Pharmacy Service has performed discharge medication reconciliation for this patient. The patient's discharge medication list was reviewed for discrepancies and discrepancies were resolved. Medications at Discharge Home Medications aspirin 81 mg capsule 81 mg PO DAILY Heart 06/24/24 Held on 08/22/25. Instructions: Resume on 09/05/25. calcium 500 mg (as carbonate)-vitamin D3 5 mcg (200 unit) tablet (Oyster Shell Calcium-Vitamin D3) 1 tab PO DAILY supplement 06/24/24 carvedilol 3.125 mg tablet 3.125 mg PO BID BP 06/24/24 cholecalciferol (vitamin D3) 125 mcg (5,000 unit) capsule 125 mcg PO DAILY SUPPLEMENT 06/24/24 lisinopril 10 mg tablet 10 mg PO DAILY BP 06/24/24 simvastatin 20 mg tablet 20 mg PO QPM Cholesterol 06/24/24 tamsulosin 0.4 mg capsule 0.4 mg PO BID URINE FLOW 07/06/24 ondansetron 4 mg disintegrating tablet 4 mg PO Q8H PRN PRN Nausea #10 tabs 08/15/25 abiraterone 250 mg tablet 1,000 mg PO DAILY CHEMO 08/20/25
--- NOTE | 2025-08-23 13:47 | CASEMGMT ---
Social Work SW met with pt to verify advance directives. Pt and confirm pt has a living will and HCPOA. SW requested a copy be brought in for scanning into the MR. SW also educated pt that if AD cannot be found at home, pt can meet with SW as an outpt to complete. Rack Card provided. Pt sitting on the edge of bed dressed and ready for discharge. Pt and both agree that pt has no concern with return home. Pt is independent with care needs. Pt denies any dc needs. CARIE Lomas
--- NOTE | 2025-08-23 14:43 | CHAPLAIN ---
Type of Pastoral Visit _x__ Initial Visit ___ Follow-up Visit ___ On-call Visit ___ General Patient Visit ___ Spiritual Assessment ___ Family Conference ___ Bereavement ___ Rapid Response ___ Code Blue ___ Other (describe below) Pastoral Care Referral From _x__ Patient ___ Family ___ Nurse ___ Physician ___ Children Teacher ___ Director Medical Science ___ Other (describe below) Sacrament/Intervention _x__ Active listening ___ Anointing ___ Amish ___ Bereavement ___ Communion ___ [place] exploration ___ ___ Life review _x__ Prayer ___ Reconciliation ___ Sacrament of Sick _x__ Supportive presence ___ Wedding ___ Other (describe below) Pastoral Comments patient is getting ready for discharge; spouse is with him; CAMPAIGN COORDINATOR is assisting; patient is greeted and offered whatever care can be given before he leaves; pt indicates that he would have liked to visit more but requests a prayer; spouse adds that they both need prayer for the recovery time at home; pt speaks of his buddhism and ob gyn; pt expresses thanks for the offer of help
== END 2025-08-23 14:00 | disposition home or self-care (01) ==
LOC: SDC 14:25 → MS3 14:25
PROVIDERS: Anesthesiology; Admitting Provider Urology; PCP Family Medicine; Referring Provider Urology; Visit Provider Urology
PROC: (CPT 52240; principal; 2025-08-22 11:05)
DX: C79.11 Secondary malignant neoplasm of bladder (principal); C61 Malignant neoplasm of prostate; I10 Essential (primary) hypertension; E78.5 Hyperlipidemia, unspecified; I25.10 Atherosclerotic heart disease of native coronary artery without angina pectoris; N40.0 Benign prostatic hyperplasia without lower urinary tract symptoms; Z95.5 Presence of coronary angioplasty implant and graft; Z79.82 Long term (current) use of aspirin; Z79.899 Other long term (current) drug therapy; Z87.891 Personal history of nicotine dependence
CPT/HCPCS: 52240; 00912; 80076; 85610; 85730; 88305; 88307; 88341; 88342; 96361; 96365; 96366; 97802; 99221; A4216; G0378; J0744; J2405